=== PATIENT | female | born 1955 | race Caucasian/White ===

== ENCOUNTER → 2018-06-12 15:51 | Outpatient (CLI) | payer OTHER, SELFPAY ==
[2018-06-12 17:13] LABS: Absolute Lymphocyte Count 1.95 X10^3/ul (0.83-4.51); Absolute Neutrophil Count 5.5 X10^3/uL (2.0-7.7); Basophil# 0.03 X10^3/uL; Basophil% 0.4 % (0-1); Eosinophil# 0.17 X10^3/uL; Hematocrit 43.8 % (37-47); Hemoglobin 14.8 g/dl (12.0-15.0); Lymphocyte # 1.95 X10^3/ul (4.0); Lymphocyte % 22.9 % (19-41); Mean Corp Hgb Conc 33.8 g/gl (32-36); Mean Corpuscular Hgb 29.4 pg (27.0-32.0); Mean Corpuscular Volume 87.1 fL (81-99); Mean Platelet Vol. 9.2 fl (6.2-12.0); Monocyte# 0.86 X10^3/uL; Monocyte% 10.1 % (0-10); Neutrophil # 5.49 X10^3/uL (2.7-7.7); Neutrophil % 64.4 % (47-70); Platelet Count 275 K/mm3 (150-450); RBC Distribution Width CV 13.9 % (11.6-14.6); RBC Distribution Width SD 44.1 fl (35.1-43.9); Red Blood Count 5.03 M/mm3 (4.2-5.4); White Blood Count 8.5 K/mm3 (4.4-11.0)
[2018-06-12 17:18] LABS: POSITIVE COUNT NO; POSITIVE DIFFERENTIAL NO; POSITIVE MORPHOLOGY NO
[2018-06-12 18:01] LABS: AST(SGOT) 24 U/L (15-37); Alanine Aminotransfer ALT/SGPT 29 U/L (13-56); Albumin, Serum 3.6 g/dL (3.2-5.0); Alkaline Phosphatase 95 U/L (45-117); Anion Gap 11 (5-15); BUN 13 mg/dL (7-18); BUN/Creat Ratio 17.1 RATIO (10-20); Calcium,Total 8.7 mg/dL (8.5-10.1); Chloride 107 mmol/L (98-107); Creatinine, Serum 0.76 mg/dL (0.55-1.02); EST Glomerular Filtration Rate 82 mL/min (>60); Est Glom Filt Rate - Afr Amer 99 mL/min (>60); Globulin 3.5 g/dL (2.2-4.2); Glucose 101 mg/dL (74-106); Potassium 4.4 mmol/L (3.5-5.1); Protein, Total 7.1 g/dL (6.4-8.2); Sodium Level 145 mmol/L (136-145); Thyroid Stim Hormone (TSH) 3.49 uIU/mL (0.358-3.74)
[2018-06-13 09:03] LABS: Vitamin D,25 Hydroxy 31.5 ng/mL (29.95-100.01)
[2018-06-14 08:43] LABS: Hep C Antibodies <0.1 s/co ratio (0.0-0.9)
== END ==
PROVIDERS: Family Provider Family Medicine Geriatric Medicine; PCP Family Medicine Geriatric Medicine; Visit Provider Family Medicine Geriatric Medicine
DX: M25.512 Pain in left shoulder (principal); R53.83 Other fatigue; E55.9 Vitamin D deficiency, unspecified; Z13.89 Encounter for screening for other disorder
CPT/HCPCS: 36415; 73030; 80053; 82306; 84443; 85025; 86803

== ENCOUNTER → 2019-04-11 | Outpatient (CLI) | payer BC, SELFPAY ==
--- NOTE | 2019-04-12 10:57 | PFT ---
INTRODUCTION: The patient is a 64-year-old female that presents for pulmonary function studies secondary to a diagnosis of cough. Respiratory therapy reports good patient effort. Bronchodilators were used during testing. INTERPRETATION: Forced expiration spirometry demonstrates no evidence of a large airways obstructive ventilatory defect. There was a significant response to aerosolized bronchodilators noted, based upon changes in FEV1 and FVC. Spirograms are of good quality and plateau normally. Body plethysmography was performed and reveals lung volumes to be within normal limits. Diffusing capacity by single breath CO is within normal limits as well. IMPRESSION: Normal spirometry, lung volumes and diffusing capacity. The patient did have a significant bronchodilator response.
== END | disposition home or self-care (01) ==
LOC: PSN 07:30
PROVIDERS: Family Provider Family Medicine Geriatric Medicine; PCP Family Medicine Geriatric Medicine; Referring Provider Family Medicine Geriatric Medicine; Visit Provider Family Medicine Geriatric Medicine
DX: R06.02 Shortness of breath (principal)
CPT/HCPCS: 94060; 94726; 94729

== ENCOUNTER → 2019-07-03 | Outpatient (CLI) | payer BC, SELFPAY ==
[2019-07-03 15:42] LABS: Absolute Neutrophil Count 5.4 X10^3/uL (2.0-7.7); Basophil# 0.04 X10^3/uL; Basophil% 0.5 % (0-1); Eosinophil# 0.17 X10^3/uL; Eosinophils% 2.2 % (0-5); Hematocrit 44.2 % (37-47); Hemoglobin 14.5 g/dL (12.0-15.0); Mean Corp Hgb Conc 32.8 g/dL (32-36); Mean Corpuscular Hgb 28.9 pg (27.0-32.0); Mean Platelet Vol. 9.1 fl (6.2-12.0); Monocyte# 0.71 X10^3/uL; Monocyte% 9.1 % (0-10); NRBC Flagged by Analyzer 0 % (0-5); Neutrophil # 5.42 X10^3/uL (2.7-7.7); Neutrophil % 69.7 % (47-70); Platelet Count 254 K/mm3 (150-450); RBC Distribution Width CV 13.2 % (11.6-14.6); Red Blood Count 5.02 M/mm3 (4.2-5.4); White Blood Count 7.8 K/mm3 (4.4-11.0)
[2019-07-03 16:21] LABS: ALB/GLOB Ratio 1.1 RATIO (0.9-2.4); AST(SGOT) 19 U/L (15-37); Alanine Aminotransfer ALT/SGPT 22 U/L (13-56); Albumin, Serum 3.5 g/dL (3.2-5.0); Alkaline Phosphatase 101 U/L (45-117); Anion Gap 8 (5-15); BUN 14 mg/dL (7-18); BUN/Creat Ratio 20.3 RATIO (10-20); Calcium,Total 8.5 mg/dL (8.5-10.1); Chloride 111 mmol/L (98-107); Creatinine, Serum 0.69 mg/dL (0.55-1.02); EST Glomerular Filtration Rate 91 mL/min (>60); Est Glom Filt Rate - Afr Amer 110 mL/min (>60); Globulin 3.3 g/dL (2.2-4.2); Glucose 112 mg/dL (74-106); Potassium 3.7 mmol/L (3.5-5.1); Protein, Total 6.8 g/dL (6.4-8.2); Sodium Level 143 mmol/L (136-145); Thyroid Stim Hormone (TSH) 5.82 uIU/mL (0.358-3.74)
== END | disposition home or self-care (01) ==
LOC: POLAB3 11:18
PROVIDERS: Family Provider Family Medicine Geriatric Medicine; PCP Family Medicine Geriatric Medicine; Visit Provider Family Medicine Geriatric Medicine
DX: E55.9 Vitamin D deficiency, unspecified (principal); R53.83 Other fatigue
CPT/HCPCS: 36415; 80053; 82306; 84443; 85025

== ENCOUNTER → 2019-08-01 | Outpatient (CLI) | payer BC, SELFPAY | END | disposition home or self-care (01) | LOC: PSN 12:32 | PROVIDERS: Family Provider Family Medicine Geriatric Medicine; PCP Family Medicine Geriatric Medicine; Referring Provider Family Medicine Geriatric Medicine; Visit Provider Family Medicine Geriatric Medicine | DX: R68.83 Chills (without fever) (principal) | CPT/HCPCS: 87633 ==

== ENCOUNTER → 2019-08-19 | Outpatient (CLI) | payer BC, SELFPAY | END | disposition home or self-care (01) | LOC: POLAB3 11:54 | PROVIDERS: Family Provider Family Medicine Geriatric Medicine; PCP Family Medicine Geriatric Medicine; Visit Provider Family Medicine Geriatric Medicine | DX: E03.9 Hypothyroidism, unspecified (principal) | CPT/HCPCS: 36415; 84443 ==

== ENCOUNTER → 2019-08-22 | Outpatient (CLI) | payer BC, SELFPAY ==
--- NOTE | 2019-08-22 15:17 | RAD_ITS ---
STUDY: X-RAY CHEST REASON FOR EXAM: Female, 64 years old. Bronchitis. TECHNIQUE: PA and lateral views of the chest. COMPARISON: Comparison is made with prior examination dated November 26, 2015. FINDINGS: Hyperinflation. Stable increased lingula markings suggestive of scarring. There is no demonstrated pleural abnormality. Normal size heart. Normal mediastinum and sandy. Normal visualized pulmonary arteries. There is atherosclerotic tortuosity of the aortic arch and descending thoracic aorta. There is demineralization of the osseous structures. Normal visualized ribs, clavicles, and shoulders. There is no demonstrated abnormality of the visualized soft tissue structures of the upper abdomen. RAD/Chest PA and Lateral IMPRESSION: Hyperinflation. Stable increased markings at the left lung base suggesting scarring. Electronically Signed: Justin Leon, at 13:17 EDT , Service support ,
== END | disposition home or self-care (01) ==
PROVIDERS: Family Provider Family Medicine Geriatric Medicine; PCP Family Medicine Geriatric Medicine; Referring Provider Family Medicine Geriatric Medicine; Visit Provider Family Medicine Geriatric Medicine
DX: J40 Bronchitis, not specified as acute or chronic (principal)
CPT/HCPCS: 71046; 87070; 87205

== ENCOUNTER → 2020-08-04 | Outpatient (CLI) | payer BC, SELFPAY ==
[2020-08-04 16:34] LABS: Absolute Lymphocyte Count 1.73 X10^3/uL (0.83-4.51); Absolute Neutrophil Count 5.6 X10^3/uL (2.0-7.7); Basophil# 0.03 X10^3/uL; Basophil% 0.4 % (0-1); Eosinophil# 0.19 X10^3/uL; Eosinophils% 2.3 % (0-5); Hematocrit 42.8 % (37-47); Hemoglobin 13.8 g/dL (12.0-15.0); Lymphocyte # 1.73 X10^3/ul (4.0); Lymphocyte % 20.8 % (19-41); Mean Corp Hgb Conc 32.2 g/dL (32-36); Mean Corpuscular Hgb 28.2 pg (27.0-32.0); Mean Corpuscular Volume 87.5 fL (81-99); Mean Platelet Vol. 8.8 fl (6.2-12.0); Monocyte# 0.78 X10^3/uL; Monocyte% 9.4 % (0-10); NRBC Flagged by Analyzer 0 % (0-5); Neutrophil # 5.55 X10^3/uL (2.7-7.7); Neutrophil % 66.7 % (47-70); Platelet Count 258 K/mm3 (150-450); RBC Distribution Width CV 13.2 % (11.6-14.6); RBC Distribution Width SD 42.8 fl (35.1-43.9); Red Blood Count 4.89 M/mm3 (4.2-5.4); White Blood Count 8.3 K/mm3 (4.4-11.0)
[2020-08-04 17:29] LABS: Vitamin D,25 Hydroxy 32.9 ng/mL
[2020-08-04 17:55] LABS: ALB/GLOB Ratio 1.1 RATIO (0.9-2.4); AST(SGOT) 23 U/L (15-37); Alanine Aminotransfer ALT/SGPT 24 U/L (13-56); Albumin, Serum 3.5 g/dL (3.2-5.0); Alkaline Phosphatase 96 U/L (45-117); Anion Gap 7 (5-15); BUN 12 mg/dL (7-18); BUN/Creat Ratio 18.5 RATIO (10-20); Calcium,Total 8.4 mg/dL (8.5-10.1); Chloride 106 mmol/L (98-107); Creatinine, Serum 0.65 mg/dL (0.55-1.02); EST Glomerular Filtration Rate 98 mL/min (>60); Est Glom Filt Rate - Afr Amer 118 mL/min (>60); Globulin 3.3 g/dL (2.2-4.2); Glucose 84 mg/dL (74-106); Potassium 3.9 mmol/L (3.5-5.1); Protein, Total 6.8 g/dL (6.4-8.2); Sodium Level 140 mmol/L (136-145); Thyroid Stim Hormone (TSH) 2.95 uIU/mL (0.358-3.74)
== END | disposition home or self-care (01) ==
LOC: POLAB3 15:33
PROVIDERS: PCP Family Medicine Geriatric Medicine; Visit Provider Family Medicine Geriatric Medicine
DX: E55.9 Vitamin D deficiency, unspecified (principal); R53.83 Other fatigue
CPT/HCPCS: 36415; 80053; 82306; 84443; 85025

== ENCOUNTER → 2020-08-21 | Outpatient (CLI) | payer BC, SELFPAY | END | disposition home or self-care (01) | LOC: LABSPEC 10:50 | PROVIDERS: PCP Family Medicine Geriatric Medicine; Referring Provider Family Medicine Geriatric Medicine; Visit Provider Family Medicine Geriatric Medicine | DX: R06.89 Other abnormalities of breathing (principal) | CPT/HCPCS: 87633; 87635; C9803; U0003 ==

== ENCOUNTER → 2020-09-09 17:37 | Outpatient (CLI) | payer BC, SELFPAY | PROVIDERS: PCP Family Medicine Geriatric Medicine; Referring Provider Family Medicine Geriatric Medicine; Visit Provider Family Medicine Geriatric Medicine | DX: R06.89 Other abnormalities of breathing (principal) | CPT/HCPCS: 87633; 87635; C9803; U0003 ==

== ENCOUNTER → 2020-10-05 15:51 | Outpatient (CLI) | payer BC, SELFPAY ==
[2020-10-09 03:06] LABS: Immunoglobulin A 225 mg/dL (87-352); Immunoglobulin G 659 mg/dL (586-1602); Immunoglobulin M 82 mg/dL (26-217)
[2020-10-09 08:54] LABS: Immunoglobulin E 44 IU/mL (6-495)
== END ==
PROVIDERS: PCP Family Medicine Geriatric Medicine; Visit Provider Family Medicine Geriatric Medicine
DX: M79.10 Myalgia, unspecified site (principal); R06.89 Other abnormalities of breathing
CPT/HCPCS: 36415; 82784; 82785

== ENCOUNTER → 2020-10-27 08:28 | Outpatient (CLI) | payer BC, SELFPAY ==
--- NOTE | 2020-10-27 16:10 | PFTCOMP_ITS ---
COMPLETE PULMONARY FUNCTION TEST INTERPRETATION Brief HPI: Patient is a 65 year old female, currently under the care of Dr. Perez, who presents to [facility] for complete pulmonary function tests secondary to diagnosis of dyspnea. Respiratory therapist reports good effort and reproducible results. Interpretation: Forced expiration spirometry shows no large airways obstructive ventilatory defect with an FEV1 of 100% predicted. There is no significant bronchodilator response by strict ATS criteria. Spirograms are of good quality and plateau normally. The respiratory flow volume loop shows a normal pattern. Lung volumes by body plethysmography show a slightly elevated total lung capacity at 6.52 L, 115% predicted. All other lung volumes are increased symmetrically. Diffusion capacity by carbon monoxide is at the lower limit of normal at 69% predicted. The airway resistance is elevated. Compared to previous pulmonary function tests from 04/11/2019, been a significant improvement in total lung capacity by 23%, but DLCO was decreased by 32%. Impression: Isolated reduction in diffusion capacity consistent with a possible pulmonary vascular disorder.
== END ==
PROVIDERS: PCP Family Medicine Geriatric Medicine; Referring Provider Family Medicine Geriatric Medicine; Visit Provider Family Medicine Geriatric Medicine
DX: R06.89 Other abnormalities of breathing (principal)
CPT/HCPCS: 94060; 94726; 94729

== ENCOUNTER → 2021-02-01 12:49 | Outpatient (CLI) | payer BC, SELFPAY ==
[2021-02-01 15:18] LABS: Absolute Lymphocyte Count 1.39 X10^3/uL (0.83-4.51); Absolute Neutrophil Count 4.6 X10^3/uL (2.0-7.7); Basophil# 0.05 X10^3/uL; Basophil% 0.7 % (0-1); Eosinophils% 2.9 % (0-5); Hematocrit 45.3 % (37-47); Hemoglobin 14.6 g/dL (12.0-15.0); Lymphocyte # 1.39 X10^3/ul (4.0); Lymphocyte % 20.4 % (19-41); Mean Corp Hgb Conc 32.2 g/dL (32-36); Mean Corpuscular Hgb 28.4 pg (27.0-32.0); Mean Corpuscular Volume 88.1 fL (81-99); Mean Platelet Vol. 9.1 fl (6.2-12.0); Monocyte% 8.8 % (0-10); NRBC Flagged by Analyzer 0 % (0-5); Neutrophil # 4.56 X10^3/uL (2.7-7.7); Neutrophil % 66.9 % (47-70); Platelet Count 266 K/mm3 (150-450); RBC Distribution Width CV 13.5 % (11.6-14.6); RBC Distribution Width SD 44.1 fl (35.1-43.9); Red Blood Count 5.14 M/mm3 (4.2-5.4); White Blood Count 6.8 K/mm3 (4.4-11.0)
[2021-02-01 15:34] LABS: ALB/GLOB Ratio 1.1 RATIO (0.9-2.4); AST(SGOT) 21 U/L (15-37); Alanine Aminotransfer ALT/SGPT 27 U/L (13-56); Albumin, Serum 3.7 g/dL (3.2-5.0); Alkaline Phosphatase 92 U/L (45-117); Anion Gap 4 (5-15); BUN 11 mg/dL (7-18); BUN/Creat Ratio 15.9 RATIO (10-20); Calcium,Total 8.9 mg/dL (8.5-10.1); Chloride 106 mmol/L (98-107); Creatinine, Serum 0.69 mg/dL (0.55-1.02); EST Glomerular Filtration Rate 90 mL/min (>60); Est Glom Filt Rate - Afr Amer 109 mL/min (>60); Globulin 3.3 g/dL (2.2-4.2); Glucose 89 mg/dL (74-106); Potassium 3.9 mmol/L (3.5-5.1); Sodium Level 140 mmol/L (136-145)
== END ==
PROVIDERS: PCP Family Medicine Geriatric Medicine; Referring Provider Dermatology Pediatric Dermatology; Visit Provider Dermatology Pediatric Dermatology
DX: D69.2 Other nonthrombocytopenic purpura (principal); L90.8 Other atrophic disorders of skin; L30.9 Dermatitis, unspecified
CPT/HCPCS: 36415; 80053; 85025

== ENCOUNTER → 2021-02-05 | Outpatient (CLI) | payer BC, SELFPAY | END | disposition home or self-care (01) | LOC: LABSPEC 14:06 | PROVIDERS: PCP Family Medicine Geriatric Medicine; Referring Provider Family Medicine Geriatric Medicine; Visit Provider Family Medicine Geriatric Medicine | DX: R68.83 Chills (without fever) (principal) | CPT/HCPCS: 87635; C9803; U0002 ==

== ENCOUNTER → 2021-08-17 10:42 | Outpatient (CLI) | payer BC, SELFPAY ==
[2021-08-17 12:40] LABS: Absolute Lymphocyte Count 1.29 X10^3/uL (0.83-4.51); Absolute Neutrophil Count 3.7 X10^3/uL (2.0-7.7); Basophil# 0.03 X10^3/uL; Basophil% 0.5 % (0-1); Eosinophil# 0.29 X10^3/uL; Eosinophils% 4.8 % (0-5); Hematocrit 45.8 % (37-47); Hemoglobin 14.9 g/dL (12.0-15.0); Lymphocyte # 1.29 X10^3/ul (0.83-4.51); Lymphocyte % 21.5 % (19-41); Mean Corp Hgb Conc 32.5 g/dL (32-36); Mean Corpuscular Hgb 28.4 pg (27.0-32.0); Mean Corpuscular Volume 87.4 fL (81-99); Mean Platelet Vol. 8.8 fl (6.2-12.0); Monocyte# 0.63 X10^3/uL; Monocyte% 10.5 % (0-10); NRBC Flagged by Analyzer 0 % (0-5); Neutrophil # 3.74 X10^3/uL (2.7-7.7); Neutrophil % 62.4 % (47-70); Platelet Count 255 K/mm3 (150-450); RBC Distribution Width CV 13.5 % (11.6-14.6); RBC Distribution Width SD 43.5 fl (35.1-43.9); Red Blood Count 5.24 M/mm3 (4.2-5.4)
[2021-08-17 12:51] LABS: Vitamin D,25 Hydroxy 30.9 ng/mL
[2021-08-17 12:59] LABS: ALB/GLOB Ratio 1.1 RATIO (0.9-2.4); AST(SGOT) 26 U/L (15-37); Alanine Aminotransfer ALT/SGPT 27 U/L (13-56); Albumin, Serum 3.7 g/dL (3.2-5.0); Alkaline Phosphatase 87 U/L (45-117); Anion Gap 8 (5-15); BUN 9 mg/dL (7-18); BUN/Creat Ratio 12.4 RATIO (10-20); Calcium,Total 8.8 mg/dL (8.5-10.1); Chloride 106 mmol/L (98-107); Creatinine, Serum 0.73 mg/dL (0.55-1.02); EST Glomerular Filtration Rate 85 mL/min (>60); Est Glom Filt Rate - Afr Amer 103 mL/min (>60); Globulin 3.5 g/dL (2.2-4.2); Glucose 106 mg/dL (74-106); Protein, Total 7.2 g/dL (6.4-8.2); Sodium Level 143 mmol/L (136-145); Thyroid Stim Hormone (TSH) 6.29 uIU/mL (0.358-3.74)
== END ==
PROVIDERS: PCP Family Medicine Geriatric Medicine; Visit Provider Family Medicine Geriatric Medicine
DX: E55.9 Vitamin D deficiency, unspecified (principal); R53.83 Other fatigue
CPT/HCPCS: 36415; 80053; 82306; 84443; 85025

== ENCOUNTER 2021-10-29 14:52 | Outpatient (CLI) | payer BC, SELFPAY ==
[2021-10-29 16:21] LABS: EXAGEN MAILED SPECIMEN
[2021-10-29 16:51] LABS: Color, Urine Yellow (Yellow); Glucose, Dipstick Normal (Normal); Ketone-Dipstick Negative (Negative); Leukocyte Esterase-Dipstick 100 /ul (Negative); Nitrite-Dipstick Negative (Negative); Occult Blood-Urine Negative /ul (Negative); Protein-Dipstick Negative (Negative); Urine Bilirubin Dipstick Negative (Negative); Urine Clarity Sl. Cloudy (Clear); Urine Urobilinogen Normal (Normal)
[2021-10-29 16:57] LABS: Absolute Neutrophil Count 3.2 X10^3/uL (2.0-7.7); Basophil# 0.03 X10^3/uL; Basophil% 0.6 % (0-1); Eosinophil# 0.12 X10^3/uL; Eosinophils% 2.5 % (0-5); Hematocrit 43.5 % (37-47); Hemoglobin 14.3 g/dL (12.0-15.0); Lymphocyte % 18.5 % (19-41); Mean Corp Hgb Conc 32.9 g/dL (32-36); Mean Corpuscular Volume 88.2 fL (81-99); Monocyte% 12.3 % (0-10); NRBC Flagged by Analyzer 0 % (0-5); Neutrophil % 65.7 % (47-70); Platelet Count 250 K/mm3 (150-450); RBC Distribution Width CV 14.1 % (11.6-14.6); RBC Distribution Width SD 45.5 fl (35.1-43.9); Red Blood Count 4.93 M/mm3 (4.2-5.4); White Blood Count 4.9 K/mm3 (4.4-11.0)
[2021-10-29 17:01] LABS: Protein, Urine (Random) 7.6 mg/dL (<11.9); Protein:Creat Ratio 70 mg/g CRE (0-200)
[2021-10-29 17:04] LABS: International Normalized Ratio 1.1; Prothrombin Time (Protime)PT. 13.4 SECONDS (11.7-14.9)
[2021-10-29 17:21] LABS: AST(SGOT) 38 U/L (15-37); Alanine Aminotransfer ALT/SGPT 32 U/L (13-56); Albumin, Serum 3.4 g/dL (3.2-5.0); Alkaline Phosphatase 65 U/L (45-117); Anion Gap 6 (5-15); BUN 10 mg/dL (7-18); BUN/Creat Ratio 18.3 RATIO (10-20); CRP 3.52 mg/L (0.0-3.0); Chloride 107 mmol/L (98-107); Creatinine, Serum 0.54 mg/dL (0.55-1.02); EST Glomerular Filtration Rate 119 mL/min (>60); Est Glom Filt Rate - Afr Amer 144 mL/min (>60); Globulin 3.4 g/dL (2.2-4.2); Glucose 93 mg/dL (74-106); Protein, Total 6.8 g/dL (6.4-8.2); Sodium Level 141 mmol/L (136-145)
[2021-10-29 17:30] LABS: Erythrocyte Sedimentation Rate 10 mm/hr (0-30)
[2021-11-01 09:23] LABS: Hepatitis B Surface Antibody Non-Reactive; Hepatitis B Surface Antigen Non-Reactive (Nonreactive); Hepatitis C Antibody Non-Reactive (Nonreactive)
[2021-11-01 13:28] LABS: Thrombin Time 16.5 sec (0.0-23.0)
[2021-11-01 14:08] LABS: Dilute Prothrombin Time (dPT) 34.6 sec (0.0-47.6); Dilute Russell Viper Venom 32.6 sec (0.0-47.0); Hexagonal Phase Phospholipid 2 sec (0-11); PTT-LA 36.6 sec (0.0-51.9); Thrombin Time 15.2 sec (0.0-23.0)
[2021-11-01 16:08] LABS: Interpretation Comment: (.)
== END 2021-10-29 23:59 | disposition short-term general hospital (02) ==
LOC: LAB 14:53
PROVIDERS: PCP Family Medicine Geriatric Medicine; Visit Provider Internal Medicine Rheumatology
DX: M33.90 Dermatopolymyositis, unspecified, organ involvement unspecified (principal)
CPT/HCPCS: 36415; 80053; 81002; 82570; 84156; 85025; 85598; 85610; 85652; 85670; 85730; 86140; 86706; 86803; 87340

== ENCOUNTER 2021-11-17 12:36 | Outpatient (CLI) | payer BC, SELFPAY ==
[2021-11-17 13:48] LABS: EXAGEN MAILED SPECIMEN
== END 2021-11-17 23:59 | disposition short-term general hospital (02) ==
PROVIDERS: PCP Family Medicine Geriatric Medicine; Referring Provider Internal Medicine Rheumatology; Visit Provider Internal Medicine Rheumatology
DX: M33.90 Dermatopolymyositis, unspecified, organ involvement unspecified (principal); M06.4 Inflammatory polyarthropathy; R76.8 Other specified abnormal immunological findings in serum; F32.A Depression, unspecified; J45.909 Unspecified asthma, uncomplicated

== ENCOUNTER 2021-11-29 14:02 | Outpatient (CLI) | payer BC, SELFPAY ==
[2021-11-29 18:46] LABS: CPK Total, Creatine Kinase 67 U/L (26-192)
[2021-12-01 18:17] LABS: Aldolase 8.6 U/L (3.3-10.3)
== END 2021-11-29 23:59 | disposition home or self-care (01) ==
LOC: MTLAB 14:05
PROVIDERS: PCP Family Medicine Geriatric Medicine; Referring Provider Internal Medicine Rheumatology; Visit Provider Internal Medicine Rheumatology
DX: M33.90 Dermatopolymyositis, unspecified, organ involvement unspecified (principal); M06.4 Inflammatory polyarthropathy; R76.8 Other specified abnormal immunological findings in serum; F32.A Depression, unspecified; J45.909 Unspecified asthma, uncomplicated; Z79.899 Other long term (current) drug therapy
CPT/HCPCS: 36415; 82085; 82550

== ENCOUNTER → 2022-02-16 | Outpatient (CLI) | payer BC, SELFPAY ==
--- NOTE | 2022-02-16 10:39 | RAD_ITS ---
STUDY: X-RAY - LUMBAR SPINE REASON FOR EXAM: Female, 67 years old. LUMBAR RADICULOPATHY TECHNIQUE: 4 view(s) of the lumbar spine were obtained. COMPARISON: 10/02/2017 FINDINGS: Normal lumbar lordosis. There is no substantial scoliosis. There is a normal alignment of the vertebrae. There is diffuse demineralization with multi-level endplate spondylosis. There is multi-level degenerative disc disease with multi-level disc space narrowing. There is no demonstrated acute fracture. There is a chronic compression fracture affecting the superior endplate of L2 The soft tissue structures are unremarkable. RAD/L/S Spine Min 4 Views IMPRESSION: Degenerative changes of the spine, as detailed above. No acute findings Stable chronic compression fracture at L2 Electronically Signed: Andres Bruno MD at 13:45 EDT ,
[2022-02-16 12:34] LABS: Erythrocyte Sedimentation Rate 11 mm/hr (0-30)
[2022-02-16 12:37] LABS: Absolute Lymphocyte Count 1.05 X10^3/uL (0.83-4.51); Absolute Neutrophil Count 3.9 X10^3/uL (2.0-7.7); Basophil# 0.02 X10^3/uL; Basophil% 0.3 % (0-1); Eosinophil# 0.28 X10^3/uL; Eosinophils% 4.7 % (0-5); Hematocrit 41.4 % (37-47); Hemoglobin 13.4 g/dL (12.0-15.0); Lymphocyte # 1.05 X10^3/ul (0.83-4.51); Lymphocyte % 17.5 % (19-41); Mean Corp Hgb Conc 32.4 g/dL (32-36); Mean Corpuscular Hgb 28.4 pg (27.0-32.0); Mean Corpuscular Volume 87.7 fL (81-99); Mean Platelet Vol. 8.9 fl (6.2-12.0); Monocyte# 0.73 X10^3/uL; Monocyte% 12.1 % (0-10); NRBC Flagged by Analyzer 0 % (0-5); Neutrophil # 3.91 X10^3/uL (2.7-7.7); Neutrophil % 65.1 % (47-70); Platelet Count 257 K/mm3 (150-450); RBC Distribution Width CV 13.8 % (11.6-14.6); RBC Distribution Width SD 44.8 fl (35.1-43.9); Red Blood Count 4.72 M/mm3 (4.2-5.4)
[2022-02-16 12:57] LABS: Vitamin B12 346 pg/mL (211-911); Vitamin D,25 Hydroxy 34.6 ng/mL
[2022-02-16 13:39] LABS: AST(SGOT) 23 U/L (15-37); Alanine Aminotransfer ALT/SGPT 21 U/L (13-56); Albumin, Serum 3.3 g/dL (3.2-5.0); Alkaline Phosphatase 64 U/L (45-117); Anion Gap 6 (5-15); BUN 9 mg/dL (7-18); CRP 6.72 mg/L (0.0-3.0); Calcium,Total 8.2 mg/dL (8.5-10.1); Chloride 106 mmol/L (98-107); Creatinine, Serum 0.64 mg/dL (0.55-1.02); EST Glomerular Filtration Rate 98 mL/min (>60); Est Glom Filt Rate - Afr Amer 118 mL/min (>60); Globulin 3.2 g/dL (2.2-4.2); Glucose 81 mg/dL (74-106); Potassium 3.9 mmol/L (3.5-5.1); Protein, Total 6.5 g/dL (6.4-8.2); Rheumatoid Factor < 10.0 IU/mL (<15); Sodium Level 140 mmol/L (136-145)
[2022-02-17 17:28] LABS: ANTINUCLEAR ANTIBODIES DIRECT Negative (Negative)
== END | disposition home or self-care (01) ==
PROVIDERS: PCP Family Medicine Geriatric Medicine; Referring Provider Podiatrist; Visit Provider Podiatrist
DX: M54.16 Radiculopathy, lumbar region (principal)
CPT/HCPCS: 36415; 72110; 80053; 82306; 82607; 82746; 85025; 85652; 86038; 86140; 86225; 86235; 86431

== ENCOUNTER → 2022-02-23 | Outpatient (CLI) | payer BC, SELFPAY ==
[2022-02-23 15:45] LABS: Absolute Lymphocyte Count 1.24 X10^3/uL (0.83-4.51); Absolute Neutrophil Count 5.3 X10^3/uL (2.0-7.7); Basophil# 0.03 X10^3/uL; Basophil% 0.4 % (0-1); Eosinophil# 0.26 X10^3/uL; Eosinophils% 3.4 % (0-5); Hematocrit 41.4 % (37-47); Hemoglobin 13.7 g/dL (12.0-15.0); Lymphocyte # 1.24 X10^3/ul (0.83-4.51); Lymphocyte % 16.3 % (19-41); Mean Corp Hgb Conc 33.1 g/dL (32-36); Mean Corpuscular Hgb 28.3 pg (27.0-32.0); Mean Corpuscular Volume 85.5 fL (81-99); Mean Platelet Vol. 8.9 fl (6.2-12.0); Monocyte# 0.79 X10^3/uL; Monocyte% 10.4 % (0-10); NRBC Flagged by Analyzer 0 % (0-5); Neutrophil # 5.26 X10^3/uL (2.7-7.7); Neutrophil % 69.2 % (47-70); Platelet Count 272 K/mm3 (150-450); RBC Distribution Width CV 13.9 % (11.6-14.6); RBC Distribution Width SD 43.7 fl (35.1-43.9); Red Blood Count 4.84 M/mm3 (4.2-5.4); White Blood Count 7.6 K/mm3 (4.4-11.0)
[2022-02-23 16:08] LABS: AST(SGOT) 28 U/L (15-37); Alanine Aminotransfer ALT/SGPT 26 U/L (13-56); Albumin, Serum 3.4 g/dL (3.2-5.0); Alkaline Phosphatase 69 U/L (45-117); Anion Gap 5 (5-15); BUN 12 mg/dL (7-18); BUN/Creat Ratio 17.6 RATIO (10-20); Calcium,Total 8.8 mg/dL (8.5-10.1); Chloride 105 mmol/L (98-107); Creatinine, Serum 0.68 mg/dL (0.55-1.02); EST Glomerular Filtration Rate 92 mL/min (>60); Est Glom Filt Rate - Afr Amer 111 mL/min (>60); Globulin 3.5 g/dL (2.2-4.2); Glucose 94 mg/dL (74-106); Potassium 4.1 mmol/L (3.5-5.1); Protein, Total 6.9 g/dL (6.4-8.2); Sodium Level 139 mmol/L (136-145); Thyroid Stim Hormone (TSH) 5.18 uIU/mL (0.358-3.74)
[2022-02-23 16:10] LABS: Vitamin D,25 Hydroxy 32.8 ng/mL
== END | disposition home or self-care (01) ==
LOC: POLAB3 15:12
PROVIDERS: PCP Family Medicine Geriatric Medicine; Visit Provider Family Medicine Geriatric Medicine
DX: E55.9 Vitamin D deficiency, unspecified (principal); R53.83 Other fatigue
CPT/HCPCS: 36415; 80053; 82306; 84443; 85025

== ENCOUNTER → 2022-06-30 | Outpatient (CLI) | payer BC, SELFPAY ==
[2022-06-30 17:21] LABS: Thyroid Stim Hormone (TSH) 2.83 uIU/mL (0.358-3.74)
== END | disposition home or self-care (01) ==
LOC: POLAB3 15:16
PROVIDERS: PCP Family Medicine Geriatric Medicine; Visit Provider Family Medicine Geriatric Medicine
DX: E03.9 Hypothyroidism, unspecified (principal)
CPT/HCPCS: 36415; 84443

== ENCOUNTER → 2022-07-13 | Outpatient (CLI) | payer BC, SELFPAY ==
--- NOTE | 2022-07-13 09:41 | VDLE_ITS ---
Reason For Study: Swelling RIGHT LEFT GSV is normal. GSV is normal. CFV is compressible, spontaneous, phasic, CFV is compressible, spontaneous, phasic, competent and demonstrates normal competent, and demonstrates normal augmentation. augmentation. FV is compressible, spontaneous, phasic, FV is compressible, spontaneous, phasic, competent and demonstrates normal competent and demonstrates normal augmentation. augmentation. POP V is compressible, spontaneous, phasic, POP V is compressible, spontaneous, phasic, competent and demonstrates normal competent and demonstrates normal augmentation. augmentation. T/P Trunk is compressible. T/P Trunk is compressible. PTV is compressible. PTV is compressible. RT PerV is compressible. LT PerV is compressible. Procedure This is a venous duplex using B-mode, color flow and spectral Doppler. Exam performed in department. A preliminary report was called and/or faxed to Dr. Roland. VL/Venous Duplex US - Deacon Extrem Interpretation Summary No evidence for acute deep venous thrombosis bilateral lower extremities with p atent and compressible bilateral great saphenous veins. Ordering Physician: Shay Roland Referring Physician: Geoff Perez Chi Performed By: Saba Bourgeois, SELENA, RVT
== END | disposition home or self-care (01) ==
LOC: CVS 09:40
PROVIDERS: PCP Family Medicine Geriatric Medicine; Referring Provider Podiatrist; Visit Provider Podiatrist
DX: M79.606 Pain in leg, unspecified (principal); R22.43 Localized swelling, mass and lump, lower limb, bilateral
CPT/HCPCS: 93970

== ENCOUNTER → 2022-08-18 | Outpatient (CLI) | payer BC, SELFPAY ==
[2022-08-18 13:41] LABS: Absolute Lymphocyte Count 0.96 X10^3/uL (0.83-4.51); Absolute Neutrophil Count 4.2 X10^3/uL (2.0-7.7); Basophil# 0.03 X10^3/uL; Basophil% 0.5 % (0-1); Eosinophil# 0.13 X10^3/uL; Eosinophils% 2.3 % (0-5); Hematocrit 39.8 % (37-47); Hemoglobin 13.5 g/dL (12.0-15.0); Lymphocyte # 0.96 X10^3/ul (0.83-4.51); Lymphocyte % 16.7 % (19-41); Mean Corp Hgb Conc 33.9 g/dL (32-36); Mean Corpuscular Hgb 29.1 pg (27.0-32.0); Mean Corpuscular Volume 85.8 fL (81-99); Mean Platelet Vol. 8.6 fl (6.2-12.0); Monocyte# 0.45 X10^3/uL; Monocyte% 7.8 % (0-10); NRBC Flagged by Analyzer 0 % (0-5); Neutrophil # 4.16 X10^3/uL (2.7-7.7); Neutrophil % 72.5 % (47-70); Platelet Count 238 K/mm3 (150-450); RBC Distribution Width CV 13.2 % (11.6-14.6); RBC Distribution Width SD 41.6 fl (35.1-43.9); Red Blood Count 4.64 M/mm3 (4.2-5.4); White Blood Count 5.7 K/mm3 (4.4-11.0)
[2022-08-18 13:55] LABS: Vitamin D,25 Hydroxy 34.5 ng/mL
[2022-08-18 14:15] LABS: ALB/GLOB Ratio 1.1 RATIO (0.9-2.4); AST(SGOT) 19 U/L (15-37); Alanine Aminotransfer ALT/SGPT 19 U/L (13-56); Albumin, Serum 3.4 g/dL (3.2-5.0); Alkaline Phosphatase 87 U/L (45-117); Anion Gap 4 (5-15); BUN 18 mg/dL (7-18); BUN/Creat Ratio 24.2 RATIO (10-20); Calcium,Total 8.9 mg/dL (8.5-10.1); Chloride 110 mmol/L (98-107); Creatinine, Serum 0.74 mg/dL (0.55-1.02); EST Glomerular Filtration Rate 83 mL/min (>60); Est Glom Filt Rate - Afr Amer 100 mL/min (>60); Globulin 3.1 g/dL (2.2-4.2); Glucose 92 mg/dL (74-106); Protein, Total 6.5 g/dL (6.4-8.2); Sodium Level 141 mmol/L (136-145)
== END | disposition home or self-care (01) ==
LOC: POLAB3 09:19
PROVIDERS: PCP Family Medicine Geriatric Medicine; Visit Provider Family Medicine Geriatric Medicine
DX: E55.9 Vitamin D deficiency, unspecified (principal); R53.83 Other fatigue
CPT/HCPCS: 36415; 80053; 82306; 84443; 85025

== ENCOUNTER → 2023-02-15 | Outpatient (CLI) | payer BC, SELFPAY | END | disposition home or self-care (01) | LOC: PSN 12:15 | PROVIDERS: PCP Family Medicine Geriatric Medicine; Referring Provider Family Medicine Geriatric Medicine; Visit Provider Family Medicine Geriatric Medicine | DX: R68.83 Chills (without fever) (principal) | CPT/HCPCS: 87635; 87804; 87807; C9803; U0003; U0005 ==

== ENCOUNTER → 2023-02-16 | Outpatient (CLI) | payer BC, SELFPAY ==
[2023-02-16 15:32] LABS: Absolute Lymphocyte Count 1.97 X10^3/uL (0.83-4.51); Absolute Neutrophil Count 4.6 X10^3/uL (2.0-7.7); Basophil# 0.05 X10^3/uL; Basophil% 0.7 % (0-1); Eosinophil# 0.09 X10^3/uL; Eosinophils% 1.2 % (0-5); Hematocrit 43.9 % (37-47); Hemoglobin 14.5 g/dL (12.0-15.0); Lymphocyte # 1.97 X10^3/ul (0.83-4.51); Lymphocyte % 26.8 % (19-41); Mean Corpuscular Hgb 29.1 pg (27.0-32.0); Mean Platelet Vol. 8.7 fl (6.2-12.0); Monocyte# 0.59 X10^3/uL; NRBC Flagged by Analyzer 0 % (0-5); Neutrophil # 4.62 X10^3/uL (2.7-7.7); Neutrophil % 62.8 % (47-70); Platelet Count 278 K/mm3 (150-450); RBC Distribution Width CV 13.2 % (11.6-14.6); RBC Distribution Width SD 42.6 fl (35.1-43.9); Red Blood Count 4.99 M/mm3 (4.2-5.4); White Blood Count 7.4 K/mm3 (4.4-11.0)
[2023-02-16 16:06] LABS: ALB/GLOB Ratio 1.1 RATIO (0.9-2.4); AST(SGOT) 16 U/L (15-37); Alanine Aminotransfer ALT/SGPT 19 U/L (13-56); Albumin, Serum 3.4 g/dL (3.2-5.0); Alkaline Phosphatase 88 U/L (45-117); Anion Gap 5 (5-15); BUN 13 mg/dL (7-18); BUN/Creat Ratio 14.6 RATIO (10-20); Calcium,Total 8.7 mg/dL (8.5-10.1); Chloride 109 mmol/L (98-107); Creatinine, Serum 0.89 mg/dL (0.55-1.02); EST Glomerular Filtration Rate 67 mL/min (>60); Est Glom Filt Rate - Afr Amer 81 mL/min (>60); Globulin 3.1 g/dL (2.2-4.2); Glucose 112 mg/dL (74-106); Potassium 3.4 mmol/L (3.5-5.1); Protein, Total 6.5 g/dL (6.4-8.2); Sodium Level 138 mmol/L (136-145); Thyroid Stim Hormone (TSH) 3.59 uIU/mL (0.358-3.74); Vitamin D,25 Hydroxy 33.2 ng/mL
== END | disposition home or self-care (01) ==
LOC: POLAB3 09:39
PROVIDERS: PCP Family Medicine Geriatric Medicine; Visit Provider Family Medicine Geriatric Medicine
DX: R53.83 Other fatigue (principal); E55.9 Vitamin D deficiency, unspecified
CPT/HCPCS: 36415; 80053; 82306; 84443; 85025

== ENCOUNTER → 2023-04-19 | Outpatient (CLI) | payer BC, SELFPAY ==
--- NOTE | 2023-04-19 17:02 | RAD_ITS ---
STUDY: X-RAY - CERVICAL SPINE REASON FOR EXAM: Female, 68 years old. NECK PAIN RADIATING INTO LEFT SHOULDER X A COUPLE OF MONTHS TECHNIQUE: 3 view(s) of the cervical spine were obtained. COMPARISON: None FINDINGS: Normal anterior atlantoaxial articulation. Normal odontoid process. Normal cervical lordosis. There is multi-level endplate spondylosis. Loss of disc height at C5-C6 and C6-C7. Multilevel facet arthropathy with slight anterolisthesis C4-C5. The soft tissue structures are unremarkable. RAD/Cerv Spine 2 or 3 Views IMPRESSION: Multilevel degenerative disc disease and facet arthropathy. Electronically Signed: Mehdi Harvey (Brooks), at 17:40 EDT ,
--- NOTE | 2023-04-19 17:02 | RAD_ITS ---
STUDY: X-RAY - LEFT SHOULDER REASON FOR EXAM: Female, 68 years old. PAIN TECHNIQUE: 4 view(s) of the shoulder. COMPARISON: June 12, 2018 FINDINGS: Normal glenohumeral articulation. There is degenerative arthrosis of the acromioclavicular joint without inferior osseous spur formation. Normal acromion. There is demineralization of the humerus and visualized osseous structures. The soft tissue structures are unremarkable. Normal visualized pulmonary apex. RAD/Shoulder min 2 Views IMPRESSION: Mild acromioclavicular joint arthrosis. Osteopenia. Stable. Electronically Signed: Mehdi Harvey (Brooks), at 17:41 EDT ,
== END | disposition home or self-care (01) ==
LOC: RAD 17:01
PROVIDERS: PCP Family Medicine Geriatric Medicine; Visit Provider Family Medicine Geriatric Medicine
DX: M54.2 Cervicalgia (principal)
CPT/HCPCS: 72040; 73030

== ENCOUNTER 2023-04-21 07:45 | Day surgery (SDC) | payer BC, SELFPAY ==
[2023-04-21 08:06] VITALS: BP 141/76; PULSE 88; RESP 16; TEMP 36.4; O2SAT 94; BMI 29.2
[2023-04-21] MEDS: Lactated Ringers 1,000 ML 15 ML IV (08:14)
--- NOTE | 2023-04-21 09:18 | HP.PCM_ITS ---
History and Physical Date of Admission: 04/21/23 Intake Vital Signs 03/09/2309:06 Height 5 ft 9 in Weight: 201 lb 2 oz BMI 29.7 BP 128/81 H Blood Pressure Location Rt brachial Position Sitting Respiration 20 H Pulse 58 L Pulse Source Monitor Temp 97.1 F L Temp Source Temporal Pulse Oximetry (%) 99 Oxygen Delivery Method room air Intake Visit Reasons: C-Scope Positive Cologaurd Chief Complaint: c-scope Allergies No Known Allergies Allergy (Verified 03/25/16 16:26) Medications budesonide-formoterol HFA 160 mcg-4.5 mcg/actuation aerosol inhaler (Symbicort) 1 inhaler PO DAILY 08/07/15 [History Confirmed 03/09/23] venlafaxine 75 mg capsule,extended release 24 hr 75 mg PO DAILY 08/07/15 [History Confirmed 03/09/23] PFSH Surgical History (Updated 03/09/23 @ 09:06 by Sakshi Wilcox) Previous section Social History (Updated 03/09/23 @ 09:06 by Sakshi Wilcox) Smoking Status: Never smoker HPI HPI HPI: Patient is a 68-year-old female here for colonoscopy. Patient has never had a colonoscopy in the past. She denies any abdominal pain or blood in the stool. She had a positive Cologuard 2 years ago. She has not had a colonoscopy since. She denies any weight loss or family history of colon cancer. ROS General General: Yes fatigue; No weight change, appetite, colon cancer, breast cancer or weakness HEENT HEENT: No difficulty swallowing, eye injury, eye surgery, swollen glands or hoarseness Endo Endocrine: No thyroid disease, diabetes mellitus, thyroid cancer, Hair loss, heat intolerance or cold intolerance Skin Skin: No rash or changing moles Breast Breast: No left breast lump, right breast lump, nipple discharge, breast pain, abnormal mammogram, abnormal US or breast enlargement Musc Musculoskeletal: No back problems, arthritis, rheumatoid arthritis, gout or joint pain Cardio Cardiovascular: No murmur, pacemaker, heart disease, atrial fibrillation, high blood pressure, heart attack, heart stent, palpitations, shortness of breat with exertion or chest pain Psych Psychiatric: Yes depression; No anxiety or hearing voices Resp Respiratory: No shortness of breath, No sleep apnea, No cough, No COPD, Yes asthma, No emphysema and No wheezing Gastro Gastrointestinal: No abdominal pain, No nausea or vomiting, No diarrhea, No constipation, No blood in stool, No acid reflux, Yes hemorrhoids, No ulcers, No gallbladder problem and No black,tarry stools Antoni Hematologic: No blood thinners, No blood disorders, No bleeding, No anemia and No blood clots Neuro Neurologic: No system reviewed and no additional complaints, except as documented, No as per HPI, No abnormal gait, No abnormal hearing, No abnormal movements, No abnormal speech, No behavioral changes, No burning sensations, No confusion, No convulsions, No disequilibrium, No dizziness, No localized weakness, No frequent falls, No headache(s), No lack of coordination, No loss of vision, No memory loss, No numbness, No other visual disturbances, No radicular pain, No restless legs, No sensory deficit, No syncope, No tingling, No tremor(s), No weakness and No other Exam Const General: cooperative Orientation: alert and oriented x3 HENMT Head: normal to inspection Neck Neck: normal visual inspection and full ROM Chest Chest palpation & inspection: normal inspection of the chest Resp Effort & Inspection: normal respiratory effort Auscultation: clear to auscultation bilaterally Cardio Rate: regular rate Rhythm: regular rhythm GI Inspection: non-distended Palpation: soft and nontender Skin General: no rashes or lesions noted Neuro General: patient alert and patient oriented x3 Extrem General: full ROM Psych Appearance: grossly normal Mental Status: mental status grossly normal Assessment and Plan Assessment and Plan (1) Positive colorectal cancer screening using Cologuard test: Status: Acute Plan: Patient had positive Cologuard test 2 years ago and has not had a scope since. She has never had a scope in the past. Plan for colonoscopy. I explained endoscopy in detail to the patient. I explained the risks including but not limited to stroke or heart attack with anesthesia, perforation of the GI tract, bleeding, infection. I explained that any of these could necessitate further emergency surgery. The patient understands and all questions were answered sufficiently. The patient wishes to proceed with procedure. Richmond Valdez MD Pager: [facility] [address] [place] [address], [address] [place] [address] Office: I have examined the patient and the H&P has been reviewed. There are no clinical changes since date of exam.
--- NOTE | 2023-04-21 09:47 | OP.CCLET_ITS ---
04/21/2023 Geoff Perez MD [address] [place] [address] Re : Colonoscopy procedure for Pratima Noel Dear Dr. Perez This procedure was performed on Friday, April 21, 2023. My impressions and recommendations are as follows: Impressions : - The entire examined colon is normal on direct and retroflexion views. - No specimens collected. Recommendations : - Discharge patient to home. - Resume previous diet. - Continue present medications. - Repeat colonoscopy in 10 years for screening purposes. My findings are described in the full procedure note, which is enclosed. If I can be of further assistance, please feel free to contact me at Doctor phone number(s): , Work: . Sincerely, Richmond Valdez MD 04/21/2023 9:46:15 AM This report has been signed electronically.
--- NOTE | 2023-04-21 09:47 | OP.COLON_ITS ---
Patient Name: Pratima Noel Procedure Date: 04/21/2023 9:21 AM Date of : 1955 Age: 68 Procedure: Colonoscopy Indications: Positive Cologuard test Providers: Richmond Valdez MD Medicines: Monitored Anesthesia Care Patient Profile: This is a 68 year old female. Refer to note in patient chart for documentation of history and physical. Last Colonoscopy: more than 10 years ago. Complications: No immediate complications. Procedure: Pre-Anesthesia Assessment: - Prior to the procedure, a History and Physical was performed, and patient medications and allergies were reviewed. The patient's tolerance of previous anesthesia was also reviewed. The risks and benefits of the procedure and the sedation options and risks were discussed with the patient. All questions were answered, and informed consent was obtained. Prior Anticoagulants: The patient has taken no previous anticoagulant or antiplatelet agents. After reviewing the risks and benefits, the patient was deemed in satisfactory condition to undergo the procedure. After I obtained informed consent, the scope was passed under direct vision. Throughout the procedure, the patient's blood pressure, pulse, and oxygen saturations were monitored continuously. The colonoscope was introduced through the anus and advanced to the cecum, identified by appendiceal orifice and ileocecal valve. The colonoscopy was performed without difficulty. The patient tolerated the procedure well. The quality of the bowel preparation was good. Scope In: 9:29:45 AM Scope Withdrawal Time 0 hours 4 minutes 55 seconds Scope Out: 9:44:14 AM Total Procedure Duration Time 0 hours 14 minutes 29 seconds Findings: The entire examined colon appeared normal on direct and retroflexion views. Impression: - The entire examined colon is normal on direct and retroflexion views. - No specimens collected. Recommendation: - Discharge patient to home. - Resume previous diet. - Continue present medications. - Repeat colonoscopy in 10 years for screening purposes. Procedure Code(s): --- Professional --- 54329, Colonoscopy, flexible; diagnostic, including collection of specimen(s) by brushing or washing, when performed (separate procedure) Diagnosis Code(s): --- Professional --- R19.5, Other fecal abnormalities CPT copyright 2017 [employer]. All rights reserved. The codes documented in this report are preliminary and upon lever miller review may be revised to meet current compliance requirements. Richmond Valdez MD 04/21/2023 9:46:15 AM This report has been signed electronically. Number of Addenda: 0 Note Initiated On: 04/21/2023 9:21 AM
[2023-04-21 09:50] VITALS: BP 106/56; BP 141/76; PULSE 67; RESP 18; TEMP 36.7; O2SAT 96
[2023-04-21 09:53] VITALS: BP 141/76; BP 95/53; PULSE 63; RESP 20; O2SAT 95
[2023-04-21 09:55] VITALS: BP 102/48; BP 141/76; PULSE 66; RESP 18; O2SAT 95
[2023-04-21 10:04] VITALS: BP 111/79; BP 141/76; PULSE 66; RESP 18; TEMP 36.4; O2SAT 96
[2023-04-21 10:23] VITALS: BP 141/76
== END 2023-04-21 10:28 | disposition home or self-care (01) ==
LOC: EN 07:49 → AC 07:55
PROVIDERS: PCP Family Medicine Geriatric Medicine; Referring Provider Family Medicine Geriatric Medicine; Visit Provider Surgery
PROC: 0DJD8ZZ Inspection of Lower Intestinal Tract, Via Natural or Artificial Opening Endoscopic (ICD-10-PCS; CPT 45378; principal; 2023-04-21 08:40)
DX: Z12.11 Encounter for screening for malignant neoplasm of colon (principal); R19.5 Other fecal abnormalities; J45.909 Unspecified asthma, uncomplicated; Z79.51 Long term (current) use of inhaled steroids
CPT/HCPCS: 45378; J7120; J2405

== ENCOUNTER → 2023-06-07 | Outpatient (CLI) | payer BC, SELFPAY ==
--- NOTE | 2023-06-07 14:55 | RAD_ITS ---
INDICATION: RIB PAIN EXAMINATION/TECHNIQUE: X-RAY - XR Ribs Unilateral W/ PA Chest Min 3 Views COMPARISON: FINDINGS: SOFT TISSUES: No soft tissue swelling or gas. BONES: There is a fracture of the right seventh and eighth ribs. Multiple old right rib fractures. VISUALIZED LUNGS: Clear. No pneumothorax. RAD/Ribs Uni Min 3V w/PA Chest IMPRESSION: Right seventh and eighth rib fractures. Electronically Signed: Sacha Marti DO at 23:30 EDT ,
== END | disposition home or self-care (01) ==
LOC: RAD 14:41
PROVIDERS: PCP Family Medicine Geriatric Medicine; Referring Provider Family Medicine Geriatric Medicine; Visit Provider Family Medicine Geriatric Medicine
DX: R07.81 Pleurodynia (principal)
CPT/HCPCS: 71101

== ENCOUNTER → 2023-08-09 | Outpatient (CLI) | payer BC, SELFPAY ==
[2023-08-09 15:21] LABS: Absolute Lymphocyte Count 1.29 X10^3/uL (0.83-4.51); Absolute Neutrophil Count 6.2 X10^3/uL (2.0-7.7); Basophil# 0.04 X10^3/uL; Basophil% 0.5 % (0-1); Eosinophil# 0.09 X10^3/uL; Eosinophils% 1.1 % (0-5); Hematocrit 46.6 % (37-47); Hemoglobin 15.3 g/dL (12.0-15.0); Lymphocyte # 1.29 X10^3/ul (0.83-4.51); Lymphocyte % 15.4 % (19-41); Mean Corp Hgb Conc 32.8 g/dL (32-36); Mean Corpuscular Hgb 29.5 pg (27.0-32.0); Mean Corpuscular Volume 89.8 fL (81-99); Mean Platelet Vol. 8.6 fl (6.2-12.0); Monocyte# 0.77 X10^3/uL; Monocyte% 9.2 % (0-10); NRBC Flagged by Analyzer 0 % (0-5); Neutrophil # 6.17 X10^3/uL (2.7-7.7); Neutrophil % 73.3 % (47-70); Platelet Count 292 K/mm3 (150-450); RBC Distribution Width SD 42.5 fl (35.1-43.9); Red Blood Count 5.19 M/mm3 (4.2-5.4); White Blood Count 8.4 K/mm3 (4.4-11.0)
[2023-08-09 16:27] LABS: ALB/GLOB Ratio 0.9 RATIO (0.9-2.4); AST(SGOT) 16 U/L (15-37); Alanine Aminotransfer ALT/SGPT 26 U/L (13-56); Albumin, Serum 3.5 g/dL (3.2-5.0); Alkaline Phosphatase 119 U/L (45-117); Anion Gap 5 (5-15); BUN 13 mg/dL (7-18); BUN/Creat Ratio 17.9 RATIO (10-20); Calcium,Total 8.8 mg/dL (8.5-10.1); Chloride 109 mmol/L (98-107); Creatinine, Serum 0.73 mg/dL (0.55-1.02); EST Glomerular Filtration Rate 85 mL/min (>60); Est Glom Filt Rate - Afr Amer 102 mL/min (>60); Globulin 3.7 g/dL (2.2-4.2); Glucose 111 mg/dL (74-106); Potassium 3.7 mmol/L (3.5-5.1); Protein, Total 7.2 g/dL (6.4-8.2); Sodium Level 141 mmol/L (136-145); Thyroid Stim Hormone (TSH) 3.43 uIU/mL (0.358-3.74)
[2023-08-09 16:49] LABS: Syphilis Antibodies Non-reactive; Vitamin B12 205 pg/mL (211-911)
== END | disposition home or self-care (01) ==
LOC: POLAB3 14:15
PROVIDERS: PCP Family Medicine Geriatric Medicine; Visit Provider Family Medicine Geriatric Medicine
DX: G31.84 Mild cognitive impairment of uncertain or unknown etiology (principal)
CPT/HCPCS: 36415; 80053; 82607; 82746; 83036; 84443; 85025; 86780

== ENCOUNTER → 2023-08-16 | Outpatient (CLI) | payer BC, SELFPAY ==
--- NOTE | 2023-08-16 14:18 | CT_ITS ---
STUDY: CT BRAIN WITHOUT CONTRAST REASON FOR EXAM: Female, 68 years old. MILD COGNITIVE IMAIRMENT X 6 MONTHS RADIATION DOSAGE (If Supplied By Facility): CTDIvol = ( 47.06 ) mGy, DLP = ( 890.33 ) mGycm TECHNIQUE: Transaxial CT imaging of the brain was performed without administration of intravenous contrast material. Individualized dose optimization techniques were used for this CT. COMPARISON: No relevant priors. FINDINGS: Normal soft tissue structures. Normal calvarium. Normal size ventricles and extra-axial spaces for the patient''s age. Normal white matter tracts of the cerebral hemispheres. Normal basal ganglia and thalami. Normal brainstem. Normal cerebellum. There is no intracranial hemorrhage. There are no findings of an acute ischemic infarction. Atherosclerotic calcification of the cavernous portions of the internal carotid arteries and vertebral arteries. Normal visualized paranasal sinuses. CT/Brain/Head without Contrast IMPRESSION: Normal unenhanced CT scan of the brain. Electronically Signed: Justin Leon MD at 14:45 EDT ,
== END | disposition home or self-care (01) ==
LOC: CT 14:07
PROVIDERS: PCP Family Medicine Geriatric Medicine; Referring Provider Family Medicine Geriatric Medicine; Visit Provider Family Medicine Geriatric Medicine
DX: G31.84 Mild cognitive impairment of uncertain or unknown etiology (principal)
CPT/HCPCS: 70450

== ENCOUNTER → 2023-11-21 | Outpatient (CLI) | payer BC, SELFPAY ==
[2023-11-21 16:19] LABS: Absolute Lymphocyte Count 1.31 X10^3/uL (0.83-4.51); Absolute Neutrophil Count 5.1 X10^3/uL (2.0-7.7); Basophil# 0.05 X10^3/uL; Basophil% 0.7 % (0-1); Eosinophil# 0.31 X10^3/uL; Eosinophils% 4.2 % (0-5); Hematocrit 42.5 % (37-47); Hemoglobin 14.1 g/dL (12.0-15.0); Lymphocyte # 1.31 X10^3/ul (0.83-4.51); Lymphocyte % 17.6 % (19-41); Mean Corp Hgb Conc 33.2 g/dL (32-36); Mean Corpuscular Hgb 29.1 pg (27.0-32.0); Mean Corpuscular Volume 87.6 fL (81-99); Mean Platelet Vol. 8.9 fl (6.2-12.0); Monocyte# 0.64 X10^3/uL; Monocyte% 8.6 % (0-10); NRBC Flagged by Analyzer 0 % (0-5); Neutrophil % 68.6 % (47-70); Platelet Count 270 K/mm3 (150-450); RBC Distribution Width CV 13.7 % (11.6-14.6); RBC Distribution Width SD 44.1 fl (35.1-43.9); Red Blood Count 4.85 M/mm3 (4.2-5.4); White Blood Count 7.4 K/mm3 (4.4-11.0)
[2023-11-21 16:40] LABS: ALB/GLOB Ratio 1.1 RATIO (0.9-2.4); AST(SGOT) 15 U/L (15-37); Alanine Aminotransfer ALT/SGPT 22 U/L (13-56); Albumin, Serum 3.7 g/dL (3.2-5.0); Alkaline Phosphatase 107 U/L (45-117); Anion Gap 5 (5-15); BUN 12 mg/dL (7-18); BUN/Creat Ratio 15.6 RATIO (10-20); Chloride 110 mmol/L (98-107); Creatinine, Serum 0.77 mg/dL (0.55-1.02); EST Glomerular Filtration Rate 80 mL/min (>60); Est Glom Filt Rate - Afr Amer 96 mL/min (>60); Globulin 3.3 g/dL (2.2-4.2); Glucose 110 mg/dL (74-106); Potassium 4.2 mmol/L (3.5-5.1); Sodium Level 142 mmol/L (136-145); Thyroid Stim Hormone (TSH) 5.26 uIU/mL (0.358-3.74)
[2023-11-21 16:42] LABS: Vitamin D,25 Hydroxy 30.8 ng/mL
== END | disposition home or self-care (01) ==
LOC: POLAB3 15:17
PROVIDERS: PCP Family Medicine Geriatric Medicine; Visit Provider Family Medicine Geriatric Medicine
DX: R53.83 Other fatigue (principal); E55.9 Vitamin D deficiency, unspecified
CPT/HCPCS: 36415; 80053; 82306; 84443; 85025

== ENCOUNTER → 2023-12-26 | Outpatient (CLI) | payer MEDICARE, BC, SELFPAY ==
--- NOTE | 2023-12-26 12:30 | BI_ITS ---
MAMMOGRAPHY - BILATERAL SCREENING 3-D TOMOSYNTHESIS REASON FOR EXAM: Female, 68 years old. SCREENING PERTINENT HISTORY: No significant family history. TECHNIQUE: 2-D mammograms and 3-D Tomosynthesis of the breast (s) were performed. CAD was performed. COMPARISON: 03/01/2017 FINDINGS: The breast composition is heterogeneously dense that can obscure small breast masses. Scattered benign calcifications are seen. No dense spiculated masses or suspicious microcalcifications are identified. No architectural distortion is identified. There is no skin thickening or retraction. There has been no significant change since the prior study. Bilateral benign vascular calcifications can be associated with coronary artery disease. Increase in the number of the bilateral benign rodlike calcifications. BI/SCRN MAMM (CAD)W/EVER BILAT IMPRESSION: No mammographic signs of malignancy. Routine yearly mammograms recommended. ASSESSMENT CATEGORY: BIRADS Category 2: Benign. A letter regarding these results will be sent to the patient by the facility within 30 days. FOLLOW UP RECOMMENDATION: Yearly follow up mammogram recommended. (A) Approximately 10% of breast cancers are not detected by mammography. A normal mammogram should not delay biopsy of a clinically suspicious abnormality. Electronically Signed: Gary Faustin MD at 17:33 EST ,
--- NOTE | 2023-12-26 12:33 | BD_ITS ---
STUDY: DUAL ENERGY X-RAY ABSORPTIOMETRY / DXA REASON FOR EXAM: Female, 68 years old. M810 TECHNIQUE: Bone Mineral Density (BMD) measurements of lumbar spine and bilateral hips were obtained. COMPARISON: None. FINDINGS: Lumbar Spine (L1-L4): g/cm2 (0.868) / T-score (-2.1) / Z-score (-0.1) Findings are suggestive of osteopenia with a high fracture risk. Left Femur Total: g/cm2 (0.822) / T-score (-1.0) / Z-score (0.4) Left Femoral Neck: g/cm2 (0.725) / T-score (-1.1) / Z-score (0.6) Right Femur Total: g/cm2 (0.738) / T-score (-1.7) / Z-score (-0.3) Right Femoral Neck: g/cm2 (0.660) / T-score (-1.7) / Z-score (0.0) BD/Dexa Bone Density Study IMPRESSION: The patient is considered osteopenic as outlined below according to World [employer] Organization (WHO) criteria with a high fracture risk. Reference Information: The T-score is the number of standard deviations above or below the standard which is normal for young adults at their peak bone mineral density. The World Health Organization (WHO) interprets the T-scores as follows: Above -1 Normal bone density Between -1 and -2.5 Osteopenia Equal to / or below -2.5 Osteoporosis As a practical clinical guideline, osteopenia may be graded as follows: Mild -1 through -1.5 Moderate -1.6 through -2.0 Severe -2.1 through -2.4 The Z-score is the number of standard deviations above or below age-matched controls. A Z-score of less than -1.5 would be considered abnormal. References: 1. NIH Osteoporosis and Related Bone Diseases www osteo.org 2. International Society for Clinical Densitometry www iscd.org 3. National Osteoporosis Foundation www nof.org Electronically Signed: Justin Leon MD at 14:15 EDT ,
== END | disposition home or self-care (01) ==
PROVIDERS: PCP Family Medicine Geriatric Medicine; Referring Provider Family Medicine Geriatric Medicine; Visit Provider Family Medicine Geriatric Medicine
DX: Z12.31 Encounter for screening mammogram for malignant neoplasm of breast (principal); M81.0 Age-related osteoporosis without current pathological fracture
CPT/HCPCS: 77063; 77067; 77080

== ENCOUNTER → 2024-05-02 | Outpatient (CLI) | payer MEDICARE, SELFPAY | END | disposition home or self-care (01) | PROVIDERS: PCP Family Medicine Geriatric Medicine; Referring Provider Family Medicine Geriatric Medicine; Visit Provider Family Medicine Geriatric Medicine | DX: R68.83 Chills (without fever) (principal) | CPT/HCPCS: 87631 ==

== ENCOUNTER → 2024-05-27 | Outpatient (CLI) | payer MEDICARE, SELFPAY ==
[2024-05-27 16:03] LABS: Absolute Lymphocyte Count 1.61 X10^3/uL (0.83-4.51); Absolute Neutrophil Count 6.2 X10^3/uL (2.0-7.7); Basophil# 0.06 X10^3/uL; Basophil% 0.7 % (0-1); Eosinophil# 0.36 X10^3/uL; Hematocrit 45.5 % (37-47); Hemoglobin 15.2 g/dL (12.0-15.0); Lymphocyte # 1.61 X10^3/ul (0.83-4.51); Lymphocyte % 17.8 % (19-41); Mean Corp Hgb Conc 33.4 g/dL (32-36); Mean Corpuscular Hgb 29.3 pg (27.0-32.0); Mean Corpuscular Volume 87.7 fL (81-99); Mean Platelet Vol. 8.8 fl (6.2-12.0); Monocyte# 0.81 X10^3/uL; Monocyte% 8.9 % (0-10); NRBC Flagged by Analyzer 0 % (0-5); Neutrophil % 68.3 % (47-70); Platelet Count 320 K/mm3 (150-450); RBC Distribution Width CV 12.8 % (11.6-14.6); RBC Distribution Width SD 41.2 fl (35.1-43.9); Red Blood Count 5.19 M/mm3 (4.2-5.4); White Blood Count 9.1 K/mm3 (4.4-11.0)
[2024-05-27 16:43] LABS: ALB/GLOB Ratio 1.1 RATIO (0.9-2.4); AST(SGOT) 28 U/L (15-37); Alanine Aminotransfer ALT/SGPT 19 U/L (13-56); Albumin, Serum 3.7 g/dL (3.2-5.0); Alkaline Phosphatase 99 U/L (45-117); Anion Gap 5 (5-15); BUN 12 mg/dL (7-18); BUN/Creat Ratio 14.7 RATIO (10-20); Calcium,Total 8.9 mg/dL (8.5-10.1); Chloride 109 mmol/L (98-107); Cholesterol 209 mg/dL (200); Creatinine, Serum 0.82 mg/dL (0.55-1.02); EST Glomerular Filtration Rate 74 mL/min (>60); Est Glom Filt Rate - Afr Amer 90 mL/min (>60); Globulin 3.5 g/dL (2.2-4.2); Glucose 125 mg/dL (74-106); High Density Lipoprotein 71 mg/dL; Potassium 3.6 mmol/L (3.5-5.1); Protein, Total 7.2 g/dL (6.4-8.2); Sodium Level 140 mmol/L (136-145); Thyroid Stim Hormone (TSH) 5.08 uIU/mL (0.358-3.74); Triglycerides 142 mg/dL; Very Low Density Lipoprotein 28 mg/dL (5-40)
== END | disposition home or self-care (01) ==
LOC: POLAB3 15:02
PROVIDERS: PCP Family Medicine Geriatric Medicine; Visit Provider Family Medicine Geriatric Medicine
DX: R53.83 Other fatigue (principal); E55.9 Vitamin D deficiency, unspecified; E78.5 Hyperlipidemia, unspecified
CPT/HCPCS: 36415; 80053; 80061; 82306; 84443; 85025; 87631

== ENCOUNTER → 2024-07-24 | Outpatient (CLI) | payer MEDICARE, SELFPAY | END | disposition home or self-care (01) | LOC: LAB 13:30 | PROVIDERS: PCP Family Medicine Geriatric Medicine; Referring Provider Family Medicine Geriatric Medicine; Visit Provider Family Medicine Geriatric Medicine | DX: E03.9 Hypothyroidism, unspecified (principal) | CPT/HCPCS: 36415; 84443 ==

== ENCOUNTER 2024-08-07 14:12 | Outpatient (CLI) | payer MEDICARE, SELFPAY ==
[2024-08-14 02:07] LABS: Immunoglobulin A 232 mg/dL (87-352); Immunoglobulin E 32 IU/mL (6-495); Immunoglobulin G 682 mg/dL (586-1602); Immunoglobulin M 83 mg/dL (26-217)
== END 2024-08-07 23:59 | disposition home or self-care (01) ==
LOC: POLAB3 14:12
PROVIDERS: PCP Family Medicine Geriatric Medicine; Visit Provider Family Medicine Geriatric Medicine
DX: E03.9 Hypothyroidism, unspecified (principal); D84.9 Immunodeficiency, unspecified; R68.83 Chills (without fever)
CPT/HCPCS: 36415; 82784; 82785; 84443; 87631

== ENCOUNTER → 2024-10-03 | Outpatient (CLI) | payer MEDICARE, SELFPAY | END | disposition home or self-care (01) | LOC: POLAB3 13:21 | PROVIDERS: PCP Family Medicine Geriatric Medicine; Visit Provider Family Medicine Geriatric Medicine | DX: E03.9 Hypothyroidism, unspecified (principal) | CPT/HCPCS: 36415; 82784; 82785; 84443 ==

== ENCOUNTER → 2024-12-03 | Outpatient (CLI) | payer MEDICARE, SELFPAY ==
[2024-12-03 15:27] LABS: Absolute Lymphocyte Count 1.63 X10^3/uL (0.83-4.51); Absolute Neutrophil Count 5.7 X10^3/uL (2.0-7.7); Basophil# 0.03 X10^3/uL; Basophil% 0.4 % (0-1); Eosinophils% 2.4 % (0-5); Hematocrit 43.7 % (37-47); Hemoglobin 14.3 g/dL (12.0-15.0); Lymphocyte # 1.63 X10^3/ul (0.83-4.51); Lymphocyte % 19.6 % (19-41); Mean Corp Hgb Conc 32.7 g/dL (32-36); Mean Corpuscular Hgb 28.5 pg (27.0-32.0); Mean Corpuscular Volume 87.1 fL (81-99); Mean Platelet Vol. 8.6 fl (6.2-12.0); Monocyte# 0.75 X10^3/uL; NRBC Flagged by Analyzer 0 % (0-5); Neutrophil % 68.4 % (47-70); Platelet Count 278 K/mm3 (150-450); RBC Distribution Width CV 13.1 % (11.6-14.6); RBC Distribution Width SD 41.1 fl (35.1-43.9); Red Blood Count 5.02 M/mm3 (4.2-5.4); White Blood Count 8.3 K/mm3 (4.4-11.0)
[2024-12-03 17:21] LABS: ALB/GLOB Ratio 1.1 RATIO (0.9-2.4); AST(SGOT) 22 U/L (15-37); Alanine Aminotransfer ALT/SGPT 20 U/L (13-56); Albumin, Serum 3.6 g/dL (3.2-5.0); Alkaline Phosphatase 92 U/L (45-117); Anion Gap 8 (5-15); BUN 12 mg/dL (7-18); BUN/Creat Ratio 16.7 RATIO (10-20); Calcium,Total 8.6 mg/dL (8.5-10.1); Chloride 107 mmol/L (98-107); Cholesterol 199 mg/dL (200); Creatinine, Serum 0.72 mg/dL (0.55-1.02); EST Glomerular Filtration Rate 86 mL/min (>60); Est Glom Filt Rate - Afr Amer 104 mL/min (>60); Globulin 3.4 g/dL (2.2-4.2); Glucose 89 mg/dL (74-106); High Density Lipoprotein 68 mg/dL; Potassium 4.1 mmol/L (3.5-5.1); Sodium Level 138 mmol/L (136-145); Triglycerides 122 mg/dL; Very Low Density Lipoprotein 24 mg/dL (5-40)
[2024-12-03 17:41] LABS: Vitamin D,25 Hydroxy 30.5 ng/mL
== END | disposition home or self-care (01) ==
LOC: LAB 14:55
PROVIDERS: PCP Family Medicine Geriatric Medicine; Referring Provider Family Medicine Geriatric Medicine; Visit Provider Family Medicine Geriatric Medicine
DX: R53.83 Other fatigue (principal); E55.9 Vitamin D deficiency, unspecified; E78.5 Hyperlipidemia, unspecified
CPT/HCPCS: 36415; 80053; 80061; 82306; 84443; 85025

== ENCOUNTER → 2024-12-17 | Outpatient (CLI) | payer MEDICARE, SELFPAY | END | disposition home or self-care (01) | LOC: POLAB3 14:14 | PROVIDERS: PCP Family Medicine Geriatric Medicine; Visit Provider Family Medicine Geriatric Medicine | DX: R68.83 Chills (without fever) (principal) | CPT/HCPCS: 87631 ==

== ENCOUNTER → 2025-01-06 | Outpatient (CLI) | payer MEDICARE, SELFPAY | END | disposition home or self-care (01) | LOC: POLAB3 15:14 | PROVIDERS: PCP Family Medicine Geriatric Medicine; Visit Provider Family Medicine Geriatric Medicine | DX: R68.83 Chills (without fever) (principal); R06.02 Shortness of breath | CPT/HCPCS: 36415; 85379; 87631 ==

== ENCOUNTER → 2025-01-07 | Outpatient (CLI) | payer MEDICARE, SELFPAY ==
--- NOTE | 2025-01-07 07:54 | CT_ITS ---
EXAM: CT Angiography Chest Without and With Intravenous Contrast CLINICAL INDICATION: SOB, ELEVATED D-DIMER TECHNIQUE: Axial computed tomographic angiography images of the chest without and with intravenous contrast. This CT exam was performed using one or more of the following dose reduction techniques: automated exposure control, adjustment of the mA and/or kV according to patient size, and/or use of iterative reconstruction technique. MIP reconstructed images were created and reviewed. COMPARISON: No relevant prior studies available. FINDINGS: LIMITATIONS: Suboptimal opacification of the pulmonary arteries. PULMONARY ARTERIES: No pulmonary embolism is identified. Some of the distal pulmonary arteries cannot be evaluated due to suboptimal opacification. AORTA: No acute findings. No thoracic aortic aneurysm. LUNGS AND PLEURAL SPACES: Lung emphysema. Lingular atelectasis or scarring. No mass. No significant effusion. No pneumothorax. HEART: Unremarkable. No cardiomegaly. No significant pericardial effusion. No evidence of RV dysfunction. BONES/JOINTS: No acute fracture. No dislocation. SOFT TISSUES: Unremarkable. LYMPH NODES: Unremarkable. No enlarged lymph nodes. CT/CTA Chest W/WO Contrast IMPRESSION: No pulmonary embolism is identified. Some of the distal pulmonary arteries can not be evaluated due to suboptimal opacification. Reading [facility]
== END | disposition home or self-care (01) ==
LOC: CT 07:54
PROVIDERS: PCP Family Medicine Geriatric Medicine; Referring Provider Family Medicine Geriatric Medicine; Visit Provider Family Medicine Geriatric Medicine
DX: R06.02 Shortness of breath (principal); R79.89 Other specified abnormal findings of blood chemistry
CPT/HCPCS: 71275; Q9967

== ENCOUNTER 2025-01-28 16:57 | Outpatient (CLI) | payer MEDICARE, SELFPAY | END 2025-01-28 23:59 | disposition home or self-care (01) | LOC: LAB 16:57 | PROVIDERS: PCP Family Medicine Geriatric Medicine; Referring Provider Family Medicine Geriatric Medicine; Visit Provider Family Medicine Geriatric Medicine | DX: J98.8 Other specified respiratory disorders (principal); R68.83 Chills (without fever) | CPT/HCPCS: 87070; 87205; 87631; 87641 ==

== ENCOUNTER → 2025-01-28 | Outpatient (CLI) | payer MEDICARE, SELFPAY | END | disposition home or self-care (01) | LOC: LABSPEC 17:53 | PROVIDERS: PCP Family Medicine Geriatric Medicine; Visit Provider Family Medicine Geriatric Medicine | DX: R68.83 Chills (without fever) (principal) | CPT/HCPCS: 87631 ==

== ENCOUNTER → 2025-02-21 | Outpatient (CLI) | payer MEDICARE, SELFPAY | END | disposition home or self-care (01) | LOC: LABSPEC 13:09 | PROVIDERS: PCP Family Medicine Geriatric Medicine; Referring Provider Family Medicine Geriatric Medicine; Visit Provider Family Medicine Geriatric Medicine | DX: J98.8 Other specified respiratory disorders (principal) | CPT/HCPCS: 87631 ==

== ENCOUNTER → 2025-03-18 | Outpatient (CLI) | payer MEDICARE, SELFPAY ==
--- NOTE | 2025-03-18 12:45 | RAD_ITS ---
PROCEDURE: CHEST PA AND LATERAL 03/18/2025 REASON FOR EXAM: SOB TECHNIQUE: Frontal and lateral views of the chest. COMPARISON: 06/07/2023 FINDINGS: The lungs appear clear. The cardiac and mediastinal contours appear within limits. Old appearing right-sided rib fracture deformities. Upper lumbar compression deformity again noted. RAD/Chest PA and Lateral IMPRESSION: No evidence of acute disease. Reading Location: [id number]
[2025-03-18 13:23] LABS: Absolute Neutrophil Count 4.6 X10^3/uL (2.0-7.7); Basophil# 0.05 X10^3/uL; Basophil% 0.7 % (0-1); Eosinophil# 0.34 X10^3/uL; Hematocrit 43.7 % (37-47); Hemoglobin 14.8 g/dL (12.0-15.0); Lymphocyte % 16.2 % (19-41); Mean Corp Hgb Conc 33.9 g/dL (32-36); Mean Corpuscular Volume 85.5 fL (81-99); Mean Platelet Vol. 8.5 fl (6.2-12.0); Monocyte# 0.67 X10^3/uL; Monocyte% 9.9 % (0-10); NRBC Flagged by Analyzer 0 % (0-5); Neutrophil # 4.62 X10^3/uL (2.7-7.7); Neutrophil % 67.9 % (47-70); Platelet Count 243 K/mm3 (150-450); RBC Distribution Width CV 13.4 % (11.6-14.6); RBC Distribution Width SD 41.7 fl (35.1-43.9); Red Blood Count 5.11 M/mm3 (4.2-5.4); White Blood Count 6.8 K/mm3 (4.4-11.0)
[2025-03-18 13:35] LABS: D-Dimer Quantitative (DVT/PE) 0.38 FEU/ug/m (0.27-0.49)
[2025-03-18 13:52] LABS: Anion Gap 12 (5-15); BUN 8 mg/dL (4-19); BUN/Creat Ratio 11.2 RATIO (10-20); Calcium,Total 9.2 mg/dL (7.6-11.0); Carbon Dioxide 23.1 mmol/L (21.0-32.0); Chloride 106 mmol/L (98-108); Creatinine, Serum 0.69 mg/dL (0.70-1.20); EST Glomerular Filtration Rate 94 (>60); Glucose 101 mg/dL (70-99); Potassium 4.1 mmol/L (3.3-5.1); Sodium Level 141 mmol/L (133-145)
== END | disposition home or self-care (01) ==
LOC: RAD 12:23 → LABSPEC 16:32
PROVIDERS: PCP Family Medicine Geriatric Medicine; Referring Provider Family Medicine Geriatric Medicine; Visit Provider Family Medicine Geriatric Medicine
DX: R06.02 Shortness of breath (principal); R53.83 Other fatigue; R05.9 Cough, unspecified; R06.2 Wheezing
CPT/HCPCS: 36415; 71046; 80048; 85025; 85379; 87631

== ENCOUNTER 2025-04-06 14:42 | Observation (INO) | payer MEDICARE, SELFPAY ==
[2025-04-06] VITALS (14 sets, daily range): BP systolic 140–160; BP diastolic 75–109; PULSE 97–115; RESP 15–30; TEMP 36.5–36.8; O2SAT 83–97; BMI 28.2; BMI 27.2
--- NOTE | 2025-04-06 15:14 | EKG12_ITS ---
Test Reason : SOB Blood Pressure : */* mmHG Vent. Rate : 108 BPM Atrial Rate : 108 BPM P-R Int : 136 ms QRS Dur : 90 ms QT Int : 352 ms P-R-T Axes : 65 93 66 degrees QTcB Int : 471 ms Sinus tachycardia Rightward axis Borderline ECG Confirmed by SALVATORE GRAY, MYKEL ([id number]), dictionary editor DIOMEDES LAUREN ([id number]) on 04/08/2025 7:42:57 AM Referred By: ERICKA Confirmed By: MYKEL CHASE MD
--- NOTE | 2025-04-06 15:16 | EDS_ITS ---
HPI History of Present Illness Chief Complaint: Shortness of Breath Informant: patient and spouse/S.O. Narrative Narrative: 70-year-old female presenting to the emergency room by private vehicle with a chief complaint of shortness of breath. Patient notes a history of asthma. She states that over the past several days she has had a progressive worsening shortness of breath. She had to come home from work early on Monday. states he tried to get her to come to the emergency department yesterday. Today states that today she was noticeably more short of breath. Nursing notes a pulse ox of 83% on room air. She does not wear home oxygen. She uses Symbicort and has a rescue inhaler of albuterol. She denies history of CHF. No chest pain. She notes a occasionally productive cough. No fever or chills. No diarrhea or vomiting. No significant rhinorrhea. She states she has never had to be hospitalized for her asthma. She is a non-smoker. [facility] Medical History Wears glasses Cancer Post-menopausal Depression Non-smoker Asthma Home Medications ?Medication ?Instructions ?Recorded ?Last Taken ?Type budesonide-formoterol HFA 160 1 inhaler PO DAILY 08/07 Unknown History mcg-4.5 mcg/actuation aerosol inhaler (Symbicort) multivitamin with minerals-folic 1 tab PO DAILY Unknown History acid 200 mcg chewable tablet (Multivitamin Gummies) albuterol sulfate 90 mcg/actuation 2 puff inhalation Q 4H 04/06/25 Unknown History aerosol inhaler levothyroxine 50 mcg tablet 50 mcg PO DAILY 04/06/25 U nknown History oxybutynin chloride 5 mg tablet 5 mg PO BID 04/06/25 U nknown History venlafaxine 37.5 mg tablet 37.5 mg PO DAILY 04/06/25 U nknown History Allergy/AdvReac Type Severity Reaction Status Date / Time cat dander Allergy dyspnea Verified 04/06/25 14:46 Surgical History Previous section Social History Smoking Status: Former smoker ROS ROS ED Constitutional Constitutional ED: Denies chills, fever(s), sweats or weight loss Eyes Eyes: Denies change in vision or diplopia ENT ENT ED: Denies ear pain, rhinorrhea or sore throat Cardiovascular Cardiovascular: Denies chest pain, orthopnea, palpitations or racing heartbeat Respiratory/Chest Respiratory/Chest: Reports cough, dyspnea, dyspnea on exertion and sputum; D enies orthopnea Gastrointestinal Gastrointestinal: Denies abdominal pain, diarrhea, nausea or vomiting Genitourinary Genitourinary ED: Denies dysuria, hematuria or urinary frequency Musculoskeletal Musculoskeletal: Denies arthralgias or myalgias Integumentary Denies abscess or rash Neurologic Neurologic: Denies headache(s), paresthesias or weakness Psychiatric Psychiatric: Denies anxiety, depression, suicidal ideation or suicidal thoughts Endocrine Endocrinology: Denies polydipsia, polyphagia or polyuria Allergic/Immunologic Allergic/Immunologic ED: Denies mouth swelling, tongue swelling or urticaria EXAM Physical Exam Const Vital Signs: 04/06/25 14:43 04/06/25 14:46 04/06/25 14:46 Temperature 97.8 F 97.8 F Temperature Source Temporal Oral Pulse Rate 105 H 105 H Respiratory Rate 30 H 30 H Respiratory Effort Respiratory Depth Respiratory Pattern Blood Pressure 147/87 H 147/87 H Blood Pressure Mean 107 107 Pulse Ox 83 96 96 Oxygen Delivery Method Room Air Nasal Cannula Nasal Cannula Oxygen Flow Rate (L/min) 4 4 04/06/25 15:04 04/06/25 15:18 04/06/25 15:23 Temperature Temperature Source Pulse Rate 111 H Respiratory Rate 22 H Respiratory Effort Short of Breath Labored Respiratory Depth Shallow Respiratory Pattern Tachypnea Tachypnea Blood Pressure Blood Pressure Mean Pulse Ox Oxygen Delivery Method Nasal Cannula Oxygen Flow Rate (L/min) 4 4 04/06/25 15:33 04/06/25 15:43 04/06/25 15:46 Temperature 98.3 F Temperature Source Oral Pulse Rate 115 H 105 H Respiratory Rate 22 H 22 H Respiratory Effort Respiratory Depth Respiratory Pattern Blood Pressure 151/109 H 148/87 H Blood Pressure Mean 123 107 Pulse Ox 96 97 94 Oxygen Delivery Method Nasal Cannula Nasal Cannula Nasal Cannula Oxygen Flow Rate (L/min) 3 2 2 04/06/25 17:00 04/06/25 18:00 04/06/25 18:14 Temperature 98.2 F Temperature Source Pulse Rate 97 99 100 Respiratory Rate 18 16 15 Respiratory Effort Respiratory Depth Respiratory Pattern Blood Pressure 140/86 H 150/85 H 160/75 H Blood Pressure Mean 104 106 103 Pulse Ox 94 97 93 Oxygen Delivery Method Room Air Oxygen Flow Rate (L/min) Positive well nourished and well developed General Appearance ED: well developed HEENT Reports normocephalic, head/scalp atraumatic and moist mucous membranes Eyes PERRL and EOMs intact bilaterally Neck no lymphadenopathy, supple and no JVD Resp Resp Narrative: Patient is tachypneic with both inspiratory and expiratory wheezing as well as bilateral rhonchi throughout. Cardio regular rate, regular rhythm and no murmurs Cardio Narrative: +2 pulses upper and lower extremities Rate: tachycardic GI normal to inspection, nondistended, normoactive bowel sounds and non-tender Palpation: soft Back/Spine no CVA tenderness and normal ROM Extremity normal to inspection General Extremety ED: Negative for edema General Extremity: Negative for edema Neuro oriented x3 and CN's II-XII intact bilaterally Sensorium / Orientation: alert Motor Exam: strength 5/5 throughout Psych mental status grossly normal Mood & Affect: Negative for depressed or tearful Skin no rashes or lesions noted and no wounds MDM MDM MDM Narrative Medical decision making narrative: Differential diagnosis includes but not limited to congestive heart failure asthma exacerbation pleural effusion pneumonia bronchitis pulmonary embolism acute coronary syndrome viral syndrome EKG done upon arrival shows a sinus tachycardia at a ventricular rate of 108 bpm. White count 7.8 hemoglobin 15.4 platelet count of 234. BMP shows a creatinine 0.68 glucose of 121 troponin is 8. My independent interpretation of the chest x-ray is no acute process. Patient received breathing treatments and Solu-Medrol. She is feeling significantly better. Repeat lung auscultation shows some end expiratory wheeze. She is satting around 94% on room air currently. Patient was ambulated. She dropped to 85%. Patient was allowed to rest. We reambulated her after about another hour and she again dropped into the 80s with a heart rate in the 120s. Using shared decision making plan of care will be observation tonight in the hospital. History & Record Review Discussion w/independent historian: Patient and Significant other Additional record(s) reviewed:: Prior ED visit and Prior labs Lab Data Attestation: I reviewed the patient's lab results. Labs: Laboratory Results - last 24 hr 04/06/25 15:00 WBC 7.8 RBC 5.30 Hgb 15.4 H Hct 44.9 MCV 84.7 MCH 29.1 MCHC 34.3 RDW Std Deviation 41.7 RDW Coeff of Eboni 13.5 Plt Count 234 MPV 8.9 Immature Gran % (Auto) 0.400 Neut % (Auto) 57.8 Lymph % (Auto) 20.6 Mellette % (Auto) 12.2 H Eos % (Auto) 8.2 H Baso % (Auto) 0.8 Absolute Neuts (auto) 4.5 Absolute Lymphs (auto) 1.60 Nucleated RBC % 0 Sodium 141 Potassium 3.9 Chloride 104 Carbon Dioxide 25.7 Anion Gap 11 BUN 8 Creatinine 0.68 L Estim Creat Clear Calc 77.95 Est GFR (MDRD) Non-Af 94 BUN/Creatinine Ratio 11.7 Glucose 121 H Calcium 9.4 Troponin T High Sens 8 Radiography Diagnostic Testing: Clinical Impression(s) from Imaging Studies Chest X-Ray 04/06/25 15:50 IMPRESSION: No Acute Findings. Reading Location: [facility] EKG Initial EKG: Attestation: I personally reviewed and interpreted this EKG as follows: Comments: Sinus tachycardia ventricular rate of 108 bpm. Management Discussion w/another healthcare provider: Hospitalist Discharge Plan Triage Chief Complaint: Shortness of Breath ED Provider: Shay Simpson Dx/Rx/DC Orders Clinical Impression: Asthma exacerbation, Hypoxia Prescriptions: No Action budesonide-formoterol [Symbicort] 1 INHALER inhaler 1 inhaler PO DAILY Patient Comments: multivit with min-folic acid [Multivitamin Gummies] 200 mcg Tablet,Chewable 1 tab PO DAILY albuterol sulfate 90 mcg/actuation HFA aerosol inhaler 2 puff inhalation Q4H levothyroxine 50 mcg tablet 50 mcg PO DAILY venlafaxine 37.5 mg tablet 37.5 mg PO DAILY oxybutynin chloride 5 mg tablet 5 mg PO BID Primary Care Provider: Geoff Perez Chi Referrals: Geoff Perez Chi, MD [Primary Care Provider] - Print Language: Ukrainian
[2025-04-06] MEDS: Ipratropium/Albuterol Sulfate 3 ML AMPUL.NEB INHALATION (15:22)
[2025-04-06 15:23] LABS: Absolute Neutrophil Count 4.5 X10^3/uL (2.0-7.7); Basophil# 0.06 X10^3/uL; Basophil% 0.8 % (0-1); Eosinophil# 0.64 X10^3/uL; Eosinophils% 8.2 % (0-5); Hematocrit 44.9 % (37-47); Hemoglobin 15.4 g/dL (12.0-15.0); Lymphocyte % 20.6 % (19-41); Mean Corp Hgb Conc 34.3 g/dL (32-36); Mean Corpuscular Hgb 29.1 pg (27.0-32.0); Mean Corpuscular Volume 84.7 fL (81-99); Mean Platelet Vol. 8.9 fl (6.2-12.0); Monocyte# 0.95 X10^3/uL; Monocyte% 12.2 % (0-10); NRBC Flagged by Analyzer 0 % (0-5); Neutrophil # 4.49 X10^3/uL (2.7-7.7); Neutrophil % 57.8 % (47-70); Platelet Count 234 K/mm3 (150-450); RBC Distribution Width CV 13.5 % (11.6-14.6); RBC Distribution Width SD 41.7 fl (35.1-43.9); White Blood Count 7.8 K/mm3 (4.4-11.0)
[2025-04-06] MEDS: Albuterol 2.5 MG/3 ML VIAL.NEB. INHALATION ×2 (15:28→15:37)
--- OUTSIDE RECORDS SUMMARY | 2025-04-06 15:30 | XMS RPT_ITS | CCD ---
Author Organization [facility] Care Team Providers Care Manager Trade Name Role Phone Dr. Geoff Perez Chi Primary Care Provider Dr. Livan Gramajo Attending Provider Dr. Shay Roland Referring Provider [phone] Dr. Geoff Perez Chi Primary Care Provider Chris, Dr. Geoff Gill Referring Provider Dr. Richmond Valdez Attending Provider [phone] Dr. Richmond Valdez Other Provider [phone] Chris GRAY, Dr. Geoff Gill Primary Care Provider Chris GRAY, Dr. Geoff Gill Attending Provider Chris GRAY, Dr. Geoff Gill Referring Provider Chris GRAY, Dr. Geoff Gill Primary Care Provider Chris GRAY, Dr. Geoff Gill Attending Provider Chris, Geoff Chi Attending Unavailable Chris, Geoff Chi Primary Care Unavailable Chris, Geoff Chi Attending Unavailable Chris, Geoff Chi Primary Care Unavailable Chris, Geoff Chi Primary Care Unavailable Chris, Geoff Chi Attending Unavailable Chris, Geoff Chi Referring Unavailable Chris, Geoff Chi Primary Care Unavailable Chris, Geoff Chi Attending Unavailable Chris, Geoff Chi Primary Care Unavailable Chris, Geoff Chi Attending Unavailable Chris, Geoff Chi Primary Care Unavailable Chris, Geoff Chi Attending Unavailable Chris, Geoff Chi Referring Unavailable Chris, Geoff Chi Primary Care Unavailable Chris, Geoff Chi Attending Unavailable Chris, Geoff Chi Referring Unavailable Chris, Geoff Chi Primary Care Unavailable Chris, Geoff Chi Attending Unavailable Chris, Geoff Chi Attending Unavailable Chris, Geoff Chi Primary Care Unavailable Chris, Geoff Chi Referring Unavailable Chris, Geoff Chi Attending Unavailable Chris, Geoff Chi Primary Care Unavailable Chris, Geoff Chi Referring Unavailable Chris, Geoff Chi Primary Care Unavailable Chris, Geoff Chi Attending Unavailable Chris, Geoff Chi Referring Unavailable Chris, Geoff Chi Attending Unavailable Chris, Geoff Chi Referring Unavailable Chris, Geoff Chi Primary Care Unavailable Chris, Geoff Chi Primary Care Unavailable Chris, Geoff Chi Attending Unavailable Chris, Geoff Chi Attending Unavailable Chris, Geoff Chi Primary Care Unavailable Medications Current Medications Medication Drug Class(es) Dates Sig (Normalized) Sig (Original) Budesonide-Formoter ol (18 sources) Corticosteroid, beta2-Adrenergic Agonist Start: 08-07-2015 Budesonide-Formote rol (Symbicort) 1 INHALER inhaler Active 1 INHALER PO DAILY August 06, 2015 11:00pm Start: 08-07-2015 Budesonide-For moterol (Symbicort) 1 INHALER inhaler Active 1 INHALER PO DAILY August 07, 2015 12:00am Start: 08-07-2015 Budesonide-For moterol (Symbicort) 1 INHALER inhaler Active 1 INHALER PO DAILY August 07, 2015 12:00am Multivit With Min-Folic Acid (Multivitamin Gummies) 200 mcg Tablet,Chewable (12 sources) Start: 04-17-2023 take 1 tablet by mouth once daily Multivit With Min-Folic Acid (Multivitamin Gummies) 200 mcg Tablet,Chewable Active 1 {tbl} PO DAILY April 17, 2023 12:00am Start: 04-17-2023 take 1 tablet by christopher th once daily Multivit With Min-Folic Acid (Multivitamin Gummies) 200 mcg Tablet,Chewable Active 1 TABLET PO DAILY April 16, 2023 11:00pm Start: 04-17-2023 take 1 tablet by christopher th once daily Multivit With Min-Folic Acid (Multivitamin Gummies) 200 mcg Tablet,Chewable Active 1 TABLET PO DAILY April 17, 2023 12:00am 24 hr venlafaxine 75 mg extended release oral capsule (18 sources) Serotonin and Norepinephrine Reuptake Inhibitor Start: 08-07-2015 take 1 capsule by mouth once daily Venlafaxine 75 MG capsule,extended release 24hr Active 75 mg PO DAILY August 07, 2015 12:00am Completed/Discontinued Medications Medication Drug Class(es) Dates Sig (Normalized) Sig (Original) acetaminophen 325 mg / oxyCODONE hydrochloride 5 mg oral tablet (18 sources) Opioid Agonist Start: 03-25-2016 End: 03-09-2023 Oxycodone-Acetamino phen 1 TABLET tablet Discontinued 1 - 2 {tbl} PO EVERY 4 HOURS NEEDED as needed for Pain March 25, 2016 12:00am March 09, 2023 9:09am Start: 03-25-2016 End: 03-09-2023 take 1 tablet by mouth every four hours as needed Oxycodone-Acetaminophen Discontinued 1 - 2 TABLET PO EVERY 4 HOURS NEEDED March 24, 2016 11:00pm March 09, 2023 8:09am ibuprofen 800 mg oral tablet (18 sources) Nonsteroidal Anti-inflammatory Drug Start: 03-25-2016 End: 03-09-2023 take 1 tablet by mouth three times daily as needed for pain Ibuprofen (Motrin) 800 MG tablet Discontinued 800 mg PO 3 TIMES DAILY NEEDED as needed for Pain March 25, 2016 5:36pm March 09, 2023 9:09am Problems Active Problems Problem Classification Problem Date Documented Da te Episodic/Chronic Other gastrointestinal disorders (12 sources) Stool DNA-based colorectal cancer screening positive; Translations: [Other fecal abnormalities] 03-09-2023 Episodic Other gastrointestinal disorders (2 sources) Other fecal abnormalities; Translations: [Abnormal feces] 03-09-2023 Episodic Other lower respiratory disease (1 source) Shortness of breath; Translations: [Shortness of breath] Onset: 03-21-2025 Episodic Other lower respiratory disease (2 sources) Other specified respiratory disorders; Translations: [Other specified respiratory disorders] Onset: 01-29-2025 Episodic Residual codes; unclassified (1 source) Chills (without fever); Translations: [Chills (without fever)] Onset: 01-31-2025 Episodic Thyroid disorders (1 source) Hypothyroidism, unspecified; Translations: [Hypothyroidism, unspecified] Onset: 11-06-2024 Chronic Past or Other Problems Problem Classification Problem Date Documented Da te Episodic/Chronic Malaise and fatigue (1 source) Other fatigue; Translations: [Other fatigue] Onset: 12-17-2024 Episodic Results Test Name Value Interpretation Reference Range Facility Absolute lymphocyte countOrd ered By: Geoff Perez on 03-18-2025 Lymphocytes Auto (Unsp spec) [#/Vol] 1.10 10*3/uL 0.83-4.51 [facility] Absolute neutrophil countOrd ered By: Geoff Perez on 03-18-2025 Neutrophils (Bld) [#/Vol] 4.6 10*3/uL 2.0-7.7 [facility] Anion gap in Serum or Plasma Ordered By: Geoff Perez on 03-18-2025 Anion gap [Moles/Vol] 12 mmol/L 03-06 [facility] Automated lymphocyte count a s percentage of total leukocytesOrdered By: Geoff Perez on 03-18-2025 Lymphocytes/100 WBC Auto (Unsp spec) 16.2 % Low 19-41 [facility] BUN/creatinine ratioOrdered By: Geoff Perez on 03-18-2025 Urea nitrogen/Creatinine [Mass ratio] 11.2 mg/mg - [facility] Basic Metabolic Profile (BMP )on 03-18-2025 BUN/CRE 11.2 RATIO Normal 08-11 [facility] Comment on above: Performed By: #### M , #### [facility] [address] [place], [address] Calcium [Mass/Vol] 9.2 mg/dL Normal 7.6-11.0 [facility] Comment on above: Performed By: #### M , #### [facility] [address] [place], [address] Chloride [Moles/Vol] 106 mmol/L Normal 98-108 [facility] Comment on above: Performed By: #### M , #### [facility] [address] [place], [address] CO2 [Moles/Vol] 23.1 mmol/L Normal 21.0-32.0 [facility] Comment on above: Performed By: #### M , #### [facility] [address] [place], [address] Creatinine [Mass/Vol] 0.69 mg/dL Low 0.70-1.20 [facility] Comment on above: Performed By: #### M , #### [facility] [address] [place], [address] GAP 12 Normal 5-15 [facility] Comment on above: Performed By: #### M , #### [facility] [address] [place], [address] GFR/1.73 sq M.predicted among non-blacks MDRD (S/P/Bld) [Vol rate/Area] 94 mL/min/{1.73_m2} Normal >60 [facility] Comment on above: Result Comment: mL/m in/1.73m2 CKD-EPI Creatinine Equation (2020) Performed By: #### M , #### [facility] [address] [place], [address] Glucose [Mass/Vol] 101 mg/dL High 70-99 [facility] Comment on above: Performed By: #### M , #### [facility] [address] [place], [address] Potassium [Moles/Vol] 4.1 mmol/L Normal 3.3-5.1 [facility] Comment on above: Performed By: #### M , #### [facility] [address] [place], [address] Sodium [Moles/Vol] 141 mmol/L Normal 133-145 [facility] Comment on above: Performed By: #### M , #### [facility] [address] [place], [address] Urea nitrogen [Mass/Vol] 8 mg/dL Normal 4-19 [facility] Comment on above: Performed By: #### M , #### [facility] [address] [place], [address] Basophil percentageOrdered B y: Geoff Perez on 03-18-2025 Basophils/100 WBC (Bld) 0.7 % 0-1 [facility] CBC W/Diff, Automatedon 02-21 Absolute Lymph 1.10 X10 3/uL Normal 0.83-4.51 [facility] Comment on above: Performed By: #### M , #### [facility] [address] [place], [address] Absolute Neut 4.6 X10 3/uL Normal 2.0-7.7 [facility] Comment on above: Performed By: #### M , #### [facility] [address] [place], [address] Basophils/100 WBC (Bld) 0.7 % Normal 0-1 [facility] Comment on above: Performed By: #### M , #### [facility] [address] [place], [address] Eosinophils/100 WBC (Bld) 5.0 % Normal 0-5 [facility] Comment on above: Performed By: #### M , #### [facility] [address] [place], [address] Erythrocyte distribution width (RBC) [Ratio] 13.4 % Normal 11.6-14.6 [facility] Comment on above: Performed By: #### M , #### [facility] [address] [place], [address] Hematocrit (Bld) [Volume fraction] 43.7 % Normal 37-47 [facility] Comment on above: Performed By: #### M , #### [facility] [address] [place], [address] Hemoglobin (Bld) [Mass/Vol] 14.8 g/dL Normal 12.0-15.0 [facility] Comment on above: Performed By: #### M , #### [facility] [address] [place], [address] IG% 0.300 Normal 0.0-0.9 [facility] Comment on above: Result Comment: IG% - Immature Granulocytes (promyelocytes, myelocytes and metamyelocytes) > 1% indicates that a LEFT SHIFT is Present. Performed By: #### M , #### [facility] [address] [place], [address] Lymphocytes/100 WBC (Bld) 16.2 % Low 19-41 [facility] Comment on above: Performed By: #### M , #### [facility] [address] [place], [address] MCH (RBC) [Entitic mass] 29.0 pg Normal 27.0-32.0 [facility] Comment on above: Performed By: #### M , #### [facility] [address] [place], [address] MCHC (RBC) [Mass/Vol] 33.9 g/dL Normal 32-36 [facility] Comment on above: Performed By: #### M , #### [facility] [address] [place], [address] MCV (RBC) [Entitic vol] 85.5 fL Normal 81-99 [facility] Comment on above: Performed By: #### M , #### [facility] [address] [place], [address] Monocytes/100 WBC (Bld) 9.9 % Normal 0-10 [facility] Comment on above: Performed By: #### M , #### [facility] [address] [place], [address] Neutrophils/100 WBC (Bld) 67.9 % Normal 47-70 [facility] Comment on above: Performed By: #### M , #### [facility] [address] [place], [address] Nucleated RBC (Bld) [#/Vol] 0 10*3/uL Normal 0-5 [facility] Comment on above: Performed By: #### M , #### [facility] [address] [place], [address] Platelet mean volume (Bld) [Entitic vol] 8.5 fL Normal 6.2-12.0 [facility] Comment on above: Performed By: #### M , #### [facility] [address] [place], [address] Platelets (Bld) [#/Vol] 243 10*3/uL Normal 150-450 [facility] Comment on above: Performed By: #### M , #### [facility] [address] [place], [address] RBC (Bld) [#/Vol] 5.11 10*6/uL Normal 4.2-5.4 [facility] Comment on above: Performed By: #### M , #### [facility] [address] [place], [address] RDW SD 41.7 fl Normal 35.1-43.9 [facility] Comment on above: Performed By: #### M 100, M100.2400 #### [facility] [address] [place], [address] WBC (Bld) [#/Vol] 6.8 10*3/uL Normal 4.4-11.0 [facility] Comment on above: Performed By: #### M 100.1999, M100.2400 #### [facility] [address] [place], [address] Carbon dioxide, total [Moles /volume] in Central venous bloodOrdered By: Geoff Perez on 03-18-2025 CO2 [Moles/Vol] 23.1 mmol/L 21.0-32.0 [facility] Chest PA and Lateralon 03-18 Chest PA and Lateral [facility] Services [address] [place] [address] Chest PA and Lateral MR#: [id number] Acct: [id number] Name: CHRIS LARSEN Rep #: [id number] : 1955 F 70 From: Livan Ashraf MD PCP: Dr. Geoff Perez MD Status: REG CLI Study: Chest PA and Lateral Date of Exam: 03/18/25 Exam# [id number] Ordering Dr: Geoff Perez MD PROCEDURE: CHEST PA AND LATERAL 03/18/2025 REASON FOR EXAM: SOB TECHNIQUE: Frontal and lateral views of the chest. COMPARISON: 06/07/2023 FINDINGS: The lungs appear clear. The cardiac and mediastinal contours appear within limits. Old appearing right-sided rib fracture deformities. Upper lumbar compression deformity again noted. RAD/Chest PA and Lateral IMPRESSION: No evidence of acute disease. Reading Location: [facility] CC: Dr. Geoff Perez MD Greens Keeper: Signed Normal [facility] Chloride assayOrdered By: Gume Perez on 03-18-2025 Chloride [Moles/Vol] 106 mmol/L 98-108 [facility] D-Dimer Quantitative (DVT/PE )on 03-18-2025 D-DIMER QUANT 0.38 FEU/ug/m Normal 0.27-0.49 [facility] Comment on above: Result Comment: NORM AL D-Dimer level (<0.50) indicates no DVT or PE. Performed By: #### M 100.2000, M100.2400 #### [facility] [address] [place], [address] Eosinophil percentageOrdered By: Geoff Perez on 03-18-2025 Eosinophils/100 WBC (Bld) 5.0 % 0-5 [facility] Erythrocyte distribution wid th ratioOrdered By: [facility] on 03-18-2025 Erythrocyte distribution width (RBC) [Ratio] 13.4 % 11.6-14.6 [facility] Erythrocyte distribution wid th standard deviationOrdered By: [facility] on 03-18-2025 Erythrocyte distribution width (RBC) [Ratio] 41.7 fl 35.1-43.9 [facility] Glomerular filtration rate ( GFR) estimation/1.73 sq m using serum, plasma, or whole bOrdered By: [facility] on 03-18-2025 GFR/1.73 sq M.predicted among non-blacks MDRD (S/P/Bld) [Vol rate/Area] 94 mL/min/{1.73_m2} >60 [facility] Comment on above: mL/min/1.73m2 CKD-EP I Creatinine Equation (2020) Hematocrit Auto (Bld) [Volum e fraction]Ordered By: Geoff Perez on 03-18-2025 Hematocrit (Bld) [Volume fraction] 43.7 % 37-47 [facility] Hemoglobin measurementOrdere d By: Geoff Chris on 03-18-2025 Hemoglobin (Bld) [Mass/Vol] 14.8 g/dL 12.0-15.0 [facility] Immature granulocytes/100 WB C Auto (Bld)Ordered By: Geoff Perez on 03-18-2025 Immature granulocytes/100 WBC (Bld) 0.300 % 0.0-0.9 [facility] Comment on above: IG% - Immature Granu locytes (promyelocytes, myelocytes and metamyelocytes) > 1% indicates that a LEFT SHIFT is Present. Influenza virus A and B and SARS-CoV-2 (COVID-19) and Respiratory syncytial virus RNAOrdered By: Geoff Perez on 03-18-2025 SARS-CoV-2 (COVID-19) RNA MAVERICK+probe Ql (Unsp spec) [facility] M100.678on 03-18-2025 M100.678 Pending SARS-CoV-2 (COVID 19) Negative INFLUENZA A Negative INFLUENZA B Negative RSV PCR Negative Normal [facility] Comment on above: Performed By: #### M 100.678 #### [facility] [address] [place] [address]. [place], [address] MCV (mean corpuscular volume ) determinationOrdered By: Geoff Perez on 03-18-2025 MCV (RBC) [Entitic vol] 85.5 fL 81-99 [facility] Mean corpuscular hemoglobin (MCH) determinationOrdered By: Geoff Perez on 03-18-2025 MCH (RBC) [Entitic mass] 29.0 pg 27.0-32.0 [facility] Mean corpuscular hemoglobin concentration (MCHC) determinationOrdered By: Geoff Perez on 03-18-2025 MCHC (RBC) [Mass/Vol] 33.9 g/dL 32-36 [facility] Mean platelet volume determi nationOrdered By: Geoff Perez on 03-18-2025 Platelet mean volume (Bld) [Entitic vol] 8.5 fL 6.2-12.0 [facility] Monocyte percentageOrdered B y: Geoff Perez on 03-18-2025 Monocytes/100 WBC (Bld) 9.9 % 0-10 [facility] Neutrophil percentageOrdered By: Geoff Perez on 03-18-2025 Neutrophils/100 WBC (Bld) 67.9 % 47-70 [facility] Nucleated red blood cell per centageOrdered By: Geoff ePrez on 03-18-2025 Nucleated RBC/100 WBC (Bld) [Ratio] 0 % 0-5 [facility] Platelet countOrdered By: Gume Perez on 03-18-2025 Platelets (Bld) [#/Vol] 243 10*3/uL 150-450 [facility] Potassium measurement (mass/ volume)Ordered By: Geoff Perez on 03-18-2025 Potassium (Unsp spec) [Mass/Vol] 4.1 mmol/L 3.3-5.1 [facility] RBC Auto (Bld) [#/Vol]Ordere d By: Geoff Perez on 03-18-2025 RBC (Bld) [#/Vol] 5.11 10*6/uL 4.2-5.4 [facility] Serum creatinine measurement (mass/volume)Ordered By: Geoff Perez on 03-18-2025 Creatinine [Mass/Vol] 0.69 mg/dL Low 0.70-1.20 [facility] Serum glucose measurement (m ass/volume)Ordered By: Geoff Perez on 03-18-2025 Glucose [Mass/Vol] 101 mg/dL High 70-99 [facility] Serum or plasma calcium manoj urement (mass/volume)Ordered By: Geoff Perez on 03-18-2025 Calcium [Mass/Vol] 9.2 mg/dL 7.6-11.0 [facility] Serum or plasma urea nitroge n measurement (mass/volume)Ordered By: Geoff Perez on 03-18-2025 Urea nitrogen [Mass/Vol] 8 mg/dL 4-19 [facility] Sodium levelOrdered By: Geoff Perez on 03-18-2025 Sodium [Moles/Vol] 141 mmol/L 133-145 [facility] White blood cell (WBC) count Ordered By: Geoff Perez on 03-18-2025 WBC (Bld) [#/Vol] 6.8 10*3/uL 4.4-11.0 [facility] Influenza virus A and B and SARS-CoV-2 (COVID-19) and Respiratory syncytial virus RNAOrdered By: Geoff Perez on 02-21-2025 SARS-CoV-2 (COVID-19) RNA MAVERICK+probe Ql (Unsp spec) [facility] M100.678on 02-21-2025 M100.678 Pending SARS-CoV-2 (COVID 19) Negative INFLUENZA A Negative INFLUENZA B Negative RSV PCR Negative Normal [facility] Comment on above: Performed By: #### M 100.2000, M100.2400 #### [facility] [address] [place], [address] Respiratory Cultureon 2024 RESPC GRAM STAIN Mixed normal respiratory nikolas. No Streptococcus pneumoniae, beta-hemolytic Streptococcus or Staphylococcus aureus isolated. Normal [facility] Comment on above: Performed By: #### M 100.1999, M1.2400 #### [facility] [address] [place], [address] Gram Stainon 01-31-2025 GS GRAM STAIN Acceptable Specimen? Yes (<25 Epithelial cells per/lpf) Gram Stain 1+ Gram positive cocci 1+ Epithelial cells 1+ White Blood Cells Normal [facility] Comment on above: Performed By: #### M 100.1999, .0 #### [facility] [address] [place], [address] Gram stainOrdered By: Geoff asif on 01-31-2025 Microscopic observation Gram stain Nom (Unsp spec) [facility] Microbial respiratory cultur eOrdered By: Geoff Perez on 01-31-2025 Microorganism identified Cx Nom (Unsp spec) or Staphylococcus aureus isolated. [facility] Influenza virus A and B and SARS-CoV-2 (COVID-19) and Respiratory syncytial virus RNAOrdered By: Geoff Perez on 01-28-2025 SARS-CoV-2 (COVID-19) RNA MAVERICK+probe Ql (Unsp spec) [facility] M100.678on 01-28-2025 M100.678 Pending SARS-CoV-2 (COVID 19) Negative INFLUENZA A Negative INFLUENZA B Negative RSV PCR Negative Normal [facility] Comment on above: Performed By: #### M 100.678 #### [facility] [address] [place], [address] M8200.1000on 01-28-2025 M8200.1000 Normal Reference Ran ge = Negative MRSA DNA Nose Ql MAVERICK+probe GeneXpert Instrument, PCR method MRSA PCR MRSA NEGATIVE Normal [facility] Comment on above: Performed By: #### M 100.1999, M100.2400 #### [facility] [address] [facility] [place], [place], [id number] MRSA DNA MAVERICK+probe Ql (Nose) Ordered By: Geoff Perez on 01-28-2025 MRSA (PCR) [facility] Nasal methicillin resistant Staphylococcus aureus (MRSA) DNA detection by PCROrdered By: Geoff Perez on 01-28-2025 MRSA DNA MAVERICK+probe Ql (Nose) [facility] CTA Chest W/WO Contraston CTA Chest W/WO Contrast [facility] Imaging Services [address] [place] [address] CTA Chest W/WO Contrast MR#: [id number] Acct: [id number] Name: CHRIS LARSEN Rep #: [id number] : 1955 F 69 From: Glen Hyde MD PCP: Dr. Geoff Perez MD Status: REG CLI Study: CTA Chest W/WO Contrast Date of Exam: 01/07/25 Exam# [id number] Ordering Dr: Geoff Perez MD EXAM: CT Angiography Chest Without and With Intravenous Contrast CLINICAL INDICATION: SOB, ELEVATED D-DIMER TECHNIQUE: Axial computed tomographic angiography images of the chest without and with intravenous contrast. This CT exam was performed using one or more of the following dose reduction techniques: automated exposure control, adjustment of the mA and/or kV according to patient size, and/or use of iterative reconstruction technique. MIP reconstructed images were created and reviewed. COMPARISON: No relevant prior studies available. FINDINGS: LIMITATIONS: Suboptimal opacification of the pulmonary arteries. PULMONARY ARTERIES: No pulmonary embolism is identified. Some of the distal pulmonary arteries cannot be evaluated due to suboptimal opacification. AORTA: No acute findings. No thoracic aortic aneurysm. LUNGS AND PLEURAL SPACES: Lung emphysema. Lingular atelectasis or scarring. No mass. No significant effusion. No pneumothorax. HEART: Unremarkable. No cardiomegaly. No significant pericardial effusion. No evidence of RV dysfunction. BONES/JOINTS: No acute fracture. No dislocation. SOFT TISSUES: Unremarkable. LYMPH NODES: Unremarkable. No enlarged lymph nodes. CT/CTA Chest W/WO Contrast IMPRESSION: No pulmonary embolism is identified. Some of the distal pulmonary arteries cannot be evaluated due to suboptimal opacification. Reading Location: [facility] CC: Dr. Geoff Perez MD Greens Keeper: Signed Normal [facility] D-Dimer Quantitative (DVT/PE )on 01-06-2025 D-DIMER QUANT 0.50 FEU/ug/m High 0.27-0.49 [facility] Comment on above: Order Comment: CRITI REBEKAH VALUE CALLED TO JYOTI GARCIA01/06/25 1606 Silvana Giron.RESULTS READ BACK BY SAME. Result Comment: D-Di salma ELEVATED (>0.49): Additional studies and clinical assessments are indicated to conclude diagnosis of: Deep Vein Thrombosis (DVT) or Pulmonary Embolism (PE) Performed By: #### M , #### [facility] [address] [facility] [place], [address] D-dimer measurement for deep venous thrombosisOrdered By: Geoff Perez on 01-06-2025 D-Dimer Quantitative (PE/DVT) 0.50 FEU/ug/m High 0.27-0.49 [facility] Comment on above: D-Dimer ELEVATED (>0 .49): Additional studies and clinicalassessments are indicated to conclude diagnosis of:Deep Vein Thrombosis (DVT) or Pulmonary Embolism (PE) Influenza virus A and B and SARS-CoV-2 (COVID-19) and Respiratory syncytial virus RNAOrdered By: Geoff Perez on 01-06-2025 SARS-CoV-2 (COVID-19) RNA MAVERICK+probe Ql (Unsp spec) [facility] M100.678on 01-06-2025 M100.678 Pending SARS-CoV-2 (COVID 19) Negative INFLUENZA A Negative INFLUENZA B Negative RSV PCR Negative Normal [facility] Comment on above: Performed By: #### M , #### [facility] [address] [place], [place], [id number] Influenza virus A and B and SARS-CoV-2 (COVID-19) and Respiratory syncytial virus RNAOrdered By: Geoff Perez on 12-17-2024 SARS-CoV-2 (COVID-19) RNA MAVERICK+probe Ql (Unsp spec) [facility] M100.678on 12-17-2024 M100.678 SARS-CoV-2 (COVID 19 ) Negative INFLUENZA A Negative INFLUENZA B Negative RSV PCR Negative Normal [facility] Comment on above: Performed By: #### M 100.2000, M100.2400 #### [facility] [place], [address] 30-SD-Dnjxmhv DOrdered By: Zan Perez on 12-03-2024 Vitamin D 25-Hydroxy 30.5 ng/mL [facility] Comment on above: Vitamin D 25(OH) Sta tus Range Deficiency <20 ng/mL (50nmol/L) Insufficiency 20 - 30 ng/mL (50 - 75 nmol/L) Sufficiency 30 - 100 ng/mL (75 - 250 nmol/L) Toxicity >100 ng/mL (>250 nmol/L) Absolute lymphocyte countOrd ered By: Geoff Perez on 12-03-2024 Lymphocytes Auto (Unsp spec) [#/Vol] 1.63 10*3/uL 0.83-4.51 [facility] Absolute neutrophil countOrd ered By: Geoff Perez on 12-03-2024 Neutrophils (Bld) [#/Vol] 5.7 10*3/uL 2.0-7.7 [facility] Albumin to globulin ratioOrd ered By: Geoff Perez on 12-03-2024 Albumin/Globulin [Mass ratio] 1.1 {ratio} 0.9-2.4 [facility] Automated lymphocyte count a s percentage of total leukocytesOrdered By: Geoff Perez on 12-03-2024 Lymphocytes/100 WBC Auto (Unsp spec) 19.6 % 19-41 [facility] Basophil percentageOrdered B y: Geoff Perez on 12-03-2024 Basophils/100 WBC (Bld) 0.4 % 0-1 [facility] Bilirubin, totalOrdered By: Geoff Perez on 12-03-2024 Bilirubin [Mass/Vol] 0.60 mg/dL 0.20-1.00 [facility] Comment on above: For patients on eltr ombopag therapy, use of Dimension [place] TBIL is not recommended. Blood urea nitrogen (BUN)/cr eatinine ratioOrdered By: Geoff Perez on 12-03-2024 Urea nitrogen/Creatinine [Mass ratio] 16.7 mg/mg 10-20 [facility] CBC W/Diff, Automatedon 11-23 Absolute Lymph 1.63 X10 3/uL Normal 0.83-4.51 [facility] Comment on above: Performed By: #### M 100.678 #### [facility] [address] [place], [address] Absolute Neut 5.7 X10 3/uL Normal 2.0-7.7 [facility] Comment on above: Performed By: #### M 100.678 #### [facility] [address] [place], [address] Basophils/100 WBC (Bld) 0.4 % Normal 0-1 [facility] Comment on above: Performed By: #### M 100.678 #### [facility] [address] [place], [address] Eosinophils/100 WBC (Bld) 2.4 % Normal 0-5 [facility] Comment on above: Performed By: #### M 100.678 #### [facility] [address] [place], [address] Erythrocyte distribution width (RBC) [Ratio] 13.1 % Normal 11.6-14.6 [facility] Comment on above: Performed By: #### M 100.678 #### [facility] [address] [place], [address] Hematocrit (Bld) [Volume fraction] 43.7 % Normal 37-47 [facility] Comment on above: Performed By: #### M 100.678 #### [facility] [address] [place], [address] Hemoglobin (Bld) [Mass/Vol] 14.3 g/dL Normal 12.0-15.0 [facility] Comment on above: Performed By: #### M 100.678 #### [facility] [address] [place], [address] IG% 0.200 Normal 0.0-0.9 [facility] Comment on above: Result Comment: IG% - Immature Granulocytes (promyelocytes, myelocytes and metamyelocytes) > 1% indicates that a LEFT SHIFT is Present. Performed By: #### M 100.678 #### [facility] [address] [place], [address] Lymphocytes/100 WBC (Bld) 19.6 % Normal 19-41 [facility] Comment on above: Performed By: #### M 100.678 #### [facility] [address] [place], [address] MCH (RBC) [Entitic mass] 28.5 pg Normal 27.0-32.0 [facility] Comment on above: Performed By: #### M 100.678 #### [facility] [address] [place], [address] MCHC (RBC) [Mass/Vol] 32.7 g/dL Normal 32-36 [facility] Comment on above: Performed By: #### M 100.678 #### [facility] [address] [place], [address] MCV (RBC) [Entitic vol] 87.1 fL Normal 81-99 [facility] Comment on above: Performed By: #### M 100.678 #### [facility] [address] [place], [address] Monocytes/100 WBC (Bld) 9.0 % Normal 0-10 [facility] Comment on above: Performed By: #### M 100.678 #### [facility] [address] [place], [address] Neutrophils/100 WBC (Bld) 68.4 % Normal 47-70 [facility] Comment on above: Performed By: #### M 100.678 #### [facility] [address] [place], [address] Nucleated RBC (Bld) [#/Vol] 0 10*3/uL Normal 0-5 [facility] Comment on above: Performed By: #### M 100.678 #### [facility] [address] [place], [address] Platelet mean volume (Bld) [Entitic vol] 8.6 fL Normal 6.2-12.0 [facility] Comment on above: Performed By: #### M 100.678 #### [facility] [address] [place], [address] Platelets (Bld) [#/Vol] 278 10*3/uL Normal 150-450 [facility] Comment on above: Performed By: #### M 100.678 #### [facility] [address] [place], [address] RBC (Bld) [#/Vol] 5.02 10*6/uL Normal 4.2-5.4 [facility] Comment on above: Performed By: #### M 100.678 #### [facility] [address] [place], [address] RDW SD 41.1 fl Normal 35.1-43.9 [facility] Comment on above: Performed By: #### M 100.678 #### [facility] [address] [place], [address] WBC (Bld) [#/Vol] 8.3 10*3/uL Normal 4.4-11.0 [facility] Comment on above: Performed By: #### M 100.678 #### [facility] [address] [place], [address] Carbon dioxide measurementOr dered By: Geoff Perez on 12-03-2024 CO2 [Moles/Vol] 24.0 mmol/L 21.0-32.0 [facility] Chloride measurementOrdered By: Geoff Perez on 12-03-2024 Chloride [Moles/Vol] 107 mmol/L 98-107 [facility] Comprehensive Metabolic Prof ilon 12-03-2024 Albumin [Mass/Vol] 3.6 g/dL Normal 3.2-5.0 [facility] Comment on above: Performed By: #### M , #### [facility] [address] [place], [address] Albumin/Globulin [Mass ratio] 1.1 {ratio} Normal 0.9-2.4 [facility] Comment on above: Performed By: #### M , #### [facility] [address] [place], [address] ALK P 92 U/L Normal 45-117 [facility] Comment on above: Performed By: #### M , #### [facility] [address] [place], [address] ALT [Catalytic activity/Vol] 20 U/L Normal 13-56 [facility] Comment on above: Performed By: #### M , #### [facility] [address] [place], [address] AST [Catalytic activity/Vol] 22 U/L Normal 15-37 [facility] Comment on above: Performed By: #### M , #### [facility] [address] [place], [address] Bilirubin [Mass/Vol] 0.60 mg/dL Normal 0.20-1.00 [facility] Comment on above: Result Comment: For patients on eltrombopag therapy, use of Dimension [place] TBIL is not recommended. Performed By: #### M , #### [facility] [address] [place], [address] BUN/CRE 16.7 RATIO Normal 10-20 [facility] Comment on above: Performed By: #### M , #### [facility] [address] [place], [address] CA,Total 8.6 mg/dL Normal 8.5-10.1 [facility] Comment on above: Performed By: #### M , #### [facility] [address] [place], [address] Chloride [Moles/Vol] 107 mmol/L Normal 98-107 [facility] Comment on above: Performed By: #### M , #### [facility] [address] [place], [address] CO2 [Moles/Vol] 24.0 mmol/L Normal 21.0-32.0 [facility] Comment on above: Performed By: #### M , #### [facility] [address] [place], [address] Creatinine [Mass/Vol] 0.72 mg/dL Normal 0.55-1.02 [facility] Comment on above: Result Comment: The validity of the calculated GFR GFRAA in patients over 70 years has not been determined. Clinical correlation is essential. Performed By: #### M , #### [facility] [address] [place], [address] EST GFR - AA 104 mL/min Normal >60 [facility] Comment on above: Result Comment: Afri can Haitian GFR Calc Performed By: #### M , #### [facility] [address] [place], [address] GAP 8 Normal 5-15 [facility] Comment on above: Performed By: #### M , #### [facility] [address] [place], [address] GFR/1.73 sq M.predicted among non-blacks MDRD (S/P/Bld) [Vol rate/Area] 86 mL/min/{1.73_m2} Normal >60 [facility] Comment on above: Result Comment: Non- GFR Calc Performed By: #### , #### [facility] [address] [place], [address] Globulin (S) [Mass/Vol] 3.4 g/dL Normal 2.2-4.2 [facility] Comment on above: Performed By: #### M , #### [facility] [address] [place], [address] Glucose [Mass/Vol] 89 mg/dL Normal 74-106 [facility] Comment on above: Performed By: #### M , #### [facility] [address] [place], [address] Potassium [Moles/Vol] 4.1 mmol/L Normal 3.5-5.1 [facility] Comment on above: Performed By: #### M , #### [facility] [address] [place], [address] Sodium [Moles/Vol] 138 mmol/L Normal 136-145 [facility] Comment on above: Performed By: #### M , #### [facility] [address] [place], [address] T PROT 7.0 g/dL Normal 6.4-8.2 [facility] Comment on above: Performed By: #### M .1999, M1.2400 #### [facility] [address] [place], [place], [address] Urea nitrogen [Mass/Vol] 12 mg/dL Normal 7-18 [facility] Comment on above: Performed By: #### M 100.1999, M1.2400 #### [facility] [address] [place], [address] Eosinophil percentageOrdered By: Geoff Perez on 12-03-2024 Eosinophils/100 WBC (Bld) 2.4 % 0-5 [facility] Erythrocyte distribution wid th ratioOrdered By: Geoff Perez on 12-03-2024 Erythrocyte distribution width (RBC) [Ratio] 13.1 % 11.6-14.6 [facility] Erythrocyte distribution wid th standard deviationOrdered By: Geoff Perez on 12-03-2024 Erythrocyte distribution width (RBC) [Entitic vol] 41.1 fL 35.1-43.9 [facility] Erythrocyte distribution width (RBC) [Ratio] 41.1 fl 35.1-43.9 [facility] Estimated glomerular filtrat ion rate (GFR) AmericanOrdered By: Geoff Perez on 12-03-2024 Estimated GFR (MDRD) Amer 104 mL/min >60 [facility] Comment on above: GFR Calc Glomerular filtration rate ( GFR) estimationOrdered By: Geoff Perez on 12-03-2024 Estimated GFR (MDRD) Non-Af Amer 86 mL/min >60 [facility] Comment on above: Non- GFR Calc GFR/1.73 sq M.predicted among non-blacks MDRD (S/P/Bld) [Vol rate/Area] 86 mL/min/{1.73_m2} >60 [facility] Comment on above: Non- GFR Calc Glucose measurementOrdered B y: Geoff Perez on 12-03-2024 Glucose [Mass/Vol] 89 mg/dL 74-106 [facility] Hematocrit Auto (Bld) [Volum e fraction]Ordered By: Geoff Perez on 12-03-2024 Hematocrit (Bld) [Volume fraction] 43.7 % 37-47 [facility] Hemoglobin measurementOrdere d By: Geoff Perez on 12-03-2024 Hemoglobin (Bld) [Mass/Vol] 14.3 g/dL 12.0-15.0 [facility] High density lipoprotein (HD L) measurementOrdered By: Geoff Perez on 12-03-2024 Cholesterol in HDL [Mass/Vol] 68 mg/dL >40 [facility] Comment on above: The drugs N-Acetylcy steine and Metamizole may falsely depress this assay. Reference Range HDL <40 mg/dL Low HDL Cholesterol HDL >or= 60 mg/dL High HDL Cholesterol Immature granulocytes/100 WB C Auto (Bld)Ordered By: Geoff Perez on 12-03-2024 Immature granulocytes/100 WBC (Bld) 0.200 % 0.0-0.9 [facility] Comment on above: IG% - Immature Granu locytes (promyelocytes, myelocytes and metamyelocytes) > 1% indicates that a LEFT SHIFT is Present. Laboratory - Chemistry and C hemistry - challengeOrdered By: Geoff Perez on 12-03-2024 AST [Catalytic activity/Vol] 22 U/L 15-37 [facility] Lipid Profileon 12-03-2024 Cholesterol [Mass/Vol] 199 mg/dL Normal 200 [facility] Comment on above: Result Comment: <200 mg/dL Desirable 200-240 mg/dL Borderline >240 mg/dL High Risk Performed By: #### M , #### [facility] [address] [place], [place], [address] Cholesterol in HDL [Mass/Vol] 68 mg/dL Normal [facility] Comment on above: Result Comment: The drugs N-Acetylcysteine and Metamizole may falsely depress this assay. Reference Range HDL <40 mg/dL Low HDL Cholesterol HDL >or= 60 mg/dL High HDL Cholesterol Performed By: #### M , #### [facility] [address] [place], [address] Cholesterol in LDL [Mass/Vol] 107 mg/dL Normal 0-130 [facility] Comment on above: Performed By: #### M , #### [facility] [address] [place], [address] Cholesterol in VLDL [Mass/Vol] 24 mg/dL Normal 5-40 [facility] Comment on above: Performed By: #### M , #### [facility] [address] [place], [address] Triglyceride [Mass/Vol] 122 mg/dL Normal [facility] Comment on above: Result Comment: The drugs N-Acetylcysteine and Metamizole may falsely depress this assay. Serum Triglycerides Reference Interval Normal <150 mg/dL Borderline high 150 - 199 mg/dL High 200 - 499 mg/dL Very High > or = 500 mg/dL Performed By: #### M , #### [facility] [address] [place], [address] Low density lipoprotein (LDL ) cholesterol measurementOrdered By: Geoff Perez on 12-03-2024 Cholesterol in LDL [Mass/Vol] 107 mg/dL 0-130 [facility] Lymphocytes Auto (Unsp spec) [#/Vol]Ordered By: Geoff Perez on 12-03-2024 Lymphocytes (Bld) [#/Vol] 1.63 10*3/uL 0.83-4.51 [facility] Lymphocytes/100 WBC Auto (Un sp spec)Ordered By: Geoff Perez on 12-03-2024 Lymphocytes/100 WBC (Bld) 19.6 % 19-41 [facility] MCV (mean corpuscular volume ) determinationOrdered By: Geoff Perez on 12-03-2024 MCV (RBC) [Entitic vol] 87.1 fL 81-99 [facility] Mean corpuscular hemoglobin (MCH) determinationOrdered By: Geoff Perez on 12-03-2024 MCH (RBC) [Entitic mass] 28.5 pg 27.0-32.0 [facility] Mean corpuscular hemoglobin concentration (MCHC) determinationOrdered By: Geoff Perez on 12-03-2024 MCHC (RBC) [Mass/Vol] 32.7 g/dL 32-36 [facility] Mean platelet volume determi nationOrdered By: Geoff Perez on 12-03-2024 Platelet mean volume (Bld) [Entitic vol] 8.6 fL 6.2-12.0 [facility] Monocyte percentageOrdered B y: Geoff Perez on 12-03-2024 Monocytes/100 WBC (Bld) 9.0 % 0-10 [facility] Neutrophil percentageOrdered By: Geoff Perez on 12-03-2024 Neutrophils/100 WBC (Bld) 68.4 % 47-70 [facility] Nucleated red blood cell per centageOrdered By: Geoff Perez on 12-03-2024 Nucleated RBC/100 WBC (Bld) [Ratio] 0 % 0-5 [facility] Platelet countOrdered By: Gume Perez on 12-03-2024 Platelets (Bld) [#/Vol] 278 10*3/uL 150-450 [facility] Potassium measurementOrdered By: Geoff Perez on 12-03-2024 Potassium [Moles/Vol] 4.1 mmol/L 3.5-5.1 [facility] RBC Auto (Bld) [#/Vol]Ordere d By: Geoff Perez on 12-03-2024 RBC (Bld) [#/Vol] 5.02 10*6/uL 4.2-5.4 [facility] Serum anion gap measurementO rdered By: Geoff Perez on 12-03-2024 Anion gap [Moles/Vol] 8 mmol/L 5-15 [facility] Serum globulin measurementOr dered By: Geoff Perez 12-03-2024 Globulin (S) [Mass/Vol] 3.4 g/dL 2.2-4.2 [facility] Serum or plasma alanine mcbride otransferase (ALT) measurementOrdered By: Geoff Perez 12-03-2024 ALT [Catalytic activity/Vol] 20 U/L 13-56 [facility] Serum or plasma albumin manoj urement (mass/volume)Ordered By: Geoff Perez on 12-03-2024 Albumin [Mass/Vol] 3.6 g/dL 3.2-5.0 [facility] Serum or plasma alkaline bertha sphatase measurementOrdered By: Geoff Perez 12-03-2024 ALP [Catalytic activity/Vol] 92 U/L 45-117 [facility] Serum or plasma calcium manoj urement (mass/volume)Ordered By: Geoff Perez on 12-03-2024 Calcium [Mass/Vol] 8.6 mg/dL 8.5-10.1 [facility] Serum or plasma cholesterol measurement (mass/volume)Ordered By: Geoff Perez on 12-03-2024 Cholesterol [Mass/Vol] 199 mg/dL <200 [facility] Comment on above: <200 mg/dL Desirable 200-240 mg/dL Borderline >240 mg/dL High Risk Serum or plasma creatinine m easurement (mass/volume)Ordered By: Geoff Perez 12-03-2024 Creatinine [Mass/Vol] 0.72 mg/dL 0.55-1.02 [facility] Comment on above: The validity of the calculated GFR & GFRAA in patients over 70 years has not been determined. Clinical correlation is essential. Serum or plasma thyroid stim ulating hormone (TSH) measurement (units/volume)Ordered By: Geoff Perez on 12-03-2024 TSH Qn 2.340 uIU/mL 0.358-3.740 [facility] Serum or plasma urea nitroge n measurement (mass/volume)Ordered By: Geoff Perez 12-03-2024 Urea nitrogen [Mass/Vol] 12 mg/dL 7-18 [facility] Sodium levelOrdered By: Geoff Perez on 12-03-2024 Sodium [Moles/Vol] 138 mmol/L 136-145 [facility] TSH QnOrdered By: Geoff Perez o n 12-03-2024 Thyroid Stimulating Hormone (TSH) 2.340 uIU/mL 0.358-3.740 [facility] Thyroid Stim Hormone (TSH)on 12-03-2024 TSH 2.340 uIU/mL Normal 0.358-3.740 [facility] Comment on above: Performed By: #### M 100.2000, M100.2400 #### [facility] [address] [place], [place], [id number] Total proteinOrdered By: Geoff Perez on 12-03-2024 Protein [Mass/Vol] 7.0 g/dL 6.4-8.2 [facility] Triglycerides measurementOrd ered By: Geoff Perez on 12-03-2024 Triglyceride [Mass/Vol] 122 mg/dL <199 [facility] Comment on above: The drugs N-Acetylcy steine and Metamizole may falsely depress this assay.Serum Triglycerides Reference Interval Normal <150 mg/dL Borderline high 150 - 199 mg/dL High 200 - 499 mg/dL Very High > or = 500 mg/dL Very low density lipoprotein (VLDL) cholesterol measurementOrdered By: Geoff Perez on 12-03-2024 Very low density lipoprotein (VLDL) cholesterol measurement 24 mg/dL 5-40 [facility] VLDL Cholesterol 24 mg/dL 5-40 [facility] Vitamin D,25 Hydroxyon 12-03 Vitamin D 25-OH 30.5 ng/mL Normal [facility] Comment on above: Result Comment: Dianna min D 25(OH) Status Range Deficiency <20 ng/mL (50nmol/L) Insufficiency 20 - 30 ng/mL (50 - 75 nmol/L) Sufficiency 30 - 100 ng/mL (75 - 250 nmol/L) Toxicity >100 ng/mL (>250 nmol/L) Performed By: #### M 100.2000, M100.2400 #### [facility] [address] [place], [place], [address] White blood cell (WBC) count Ordered By: Geoff Perez on 12-03-2024 WBC (Bld) [#/Vol] 8.3 10*3/uL 4.4-11.0 [facility] TSH QnOrdered By: Geoff quintana 10-03-2024 Thyroid Stimulating Hormone (TSH) 3.300 uIU/mL 0.358-3.740 [facility] Thyroid Stim Hormone (TSH)on 10-03-2024 TSH 3.300 uIU/mL Normal 0.358-3.740 [facility] Comment on above: Performed By: #### M 100.678 #### [facility] [address] [place], [address] Immunoglobulins G/A/M/Raffaele IMMUNOGLOB A QN Normal [facility] Comment on above: Order Comment: N Result Comment: WRON G TEST Performed By: #### L 3200.1100 #### [facility] [address] [place], [address] IMMUNOGLOB E QN Normal [facility] Comment on above: Order Comment: N Result Comment: WRON G TEST Performed By: #### L 3200.1100 #### [facility] [address] [place], [address] IMMUNOGLOB G QN Normal [facility] Comment on above: Order Comment: N Result Comment: WRON G TEST Performed By: #### L 3200.1100 #### [facility] [address] [place], [address] IMMUNOGLOB M QN Normal [facility] Comment on above: Order Comment: N Result Comment: WRON G TEST Performed By: #### L 3200.1100 #### [facility] [address] [place], [address] Immunoglobulins G/A/M/Raffaele IMMUNOGLOB A QN 232 mg/dL Normal 87-352 [facility] Comment on above: Order Comment: N Performed By: #### M 100.678 #### [facility] [address] [place], [address] IMMUNOGLOB E QN 32 IU/mL Normal 6-495 [facility] Comment on above: Order Comment: N Result Comment: Perf ormed at: [facility] [address] [id number] Ground Support Agent: Houston Bowden PhD, Phone: [phone] Performed at: [facility] [address] [id number] Ground Support Agent: Micheline Saravia MD, Phone: [phone] Performed By: #### M 100.678 #### [facility] [address], [address] IMMUNOGLOB G QN 682 mg/dL Normal 586-1602 [facility] Comment on above: Order Comment: N Performed By: #### M 100.678 #### [facility] [address] [place], [address] IMMUNOGLOB M QN 83 mg/dL Normal 26-217 [facility] Comment on above: Order Comment: N Performed By: #### M 100.678 #### [facility] [address] [place], [address] M100.678on 08-07-2024 M100.678 Pending SARS-CoV-2 (COVID 19) Negative INFLUENZA A Negative INFLUENZA B Negative RSV PCR Negative Normal [facility] Comment on above: Performed By: #### M 100.678 #### [facility], [address] Thyroid Stim Hormone (TSH)on 08-07-2024 TSH 2.800 uIU/mL Normal 0.358-3.740 [facility] Comment on above: Performed By: #### M 100.678, L3200.1100, L501.9520 #### [facility], [address] Thyroid Stim Hormone (TSH)on 07-24-2024 TSH 4.340 uIU/mL High 0.358-3.740 [facility] Comment on above: Performed By: #### L 501.9520 #### [facility] [address] [place], [address] CBC W/Diff, Automatedon 08-0 Absolute Lymph 1.61 X10 3/uL Normal 0.83-4.51 [facility] Comment on above: Performed By: #### M 100.678 #### [facility] [address] [place], [address] Absolute Neut 6.2 X10 3/uL Normal 2.0-7.7 [facility] Comment on above: Performed By: #### M 100.678 #### [facility] [address] [place], [address] Basophils/100 WBC (Bld) 0.7 % Normal 0-1 [facility] Comment on above: Performed By: #### M 100.678 #### [facility] [address] [place], [address] Eosinophils/100 WBC (Bld) 4.0 % Normal 0-5 [facility] Comment on above: Performed By: #### M 100.678 #### [facility] [address] [place], [address] Erythrocyte distribution width (RBC) [Ratio] 12.8 % Normal 11.6-14.6 [facility] Comment on above: Performed By: #### M [id number] #### [facility] [address] [place], [address] Hematocrit (Bld) [Volume fraction] 45.5 % Normal 37-47 [facility] Comment on above: Performed By: #### M [id number] #### [facility] [address] [place], [address] Hemoglobin (Bld) [Mass/Vol] 15.2 g/dL High 12.0-15.0 [facility] Comment on above: Performed By: #### M [id number] #### [facility] [address] [place], [address] IG% 0.300 Normal 0.0-0.9 [facility] Comment on above: Result Comment: IG% - Immature Granulocytes (promyelocytes, myelocytes and metamyelocytes) > 1% indicates that a LEFT SHIFT is Present. Performed By: #### M [id number] #### [facility] [address] [place], [address] Lymphocytes/100 WBC (Bld) 17.8 % Low 19-41 [facility] Comment on above: Performed By: #### M [id number] #### [facility] [address] [place], [address] MCH (RBC) [Entitic mass] 29.3 pg Normal 27.0-32.0 [facility] Comment on above: Performed By: #### [id number] #### [facility] [address] [place], [address] MCHC (RBC) [Mass/Vol] 33.4 g/dL Normal 32-36 [facility] Comment on above: Performed By: #### M [id number] #### [facility] [address] [place], [address] MCV (RBC) [Entitic vol] 87.7 fL Normal 81-99 [facility] Comment on above: Performed By: #### M [id number] #### [facility] [address] [place], [address] Monocytes/100 WBC (Bld) 8.9 % Normal 0-10 [facility] Comment on above: Performed By: #### M [id number] #### [facility] [address] [place], [address] Neutrophils/100 WBC (Bld) 68.3 % Normal 47-70 [facility] Comment on above: Performed By: #### M [id number] #### [facility] [address] [place], [address] Nucleated RBC (Bld) [#/Vol] 0 10*3/uL Normal 0-5 [facility] Comment on above: Performed By: #### M [id number] #### [facility] [address] [place], [address] Platelet mean volume (Bld) [Entitic vol] 8.8 fL Normal 6.2-12.0 [facility] Comment on above: Performed By: #### M [id number] #### [facility] [address] [place], [address] Platelets (Bld) [#/Vol] 320 10*3/uL Normal 150-450 [facility] Comment on above: Performed By: #### M [id number] #### [facility] [address] [place], [address] RBC (Bld) [#/Vol] 5.19 10*6/uL Normal 4.2-5.4 [facility] Comment on above: Performed By: #### M [id number] #### [facility] [address] [place], [address] RDW SD 41.2 fl Normal 35.1-43.9 [facility] Comment on above: Performed By: #### M [id number] #### [facility] [address] [place], [address] WBC (Bld) [#/Vol] 9.1 10*3/uL Normal 4.4-11.0 [facility] Comment on above: Performed By: #### M [id number] #### [facility] [address] [place], [address] Comprehensive Metabolic Prof [facility] 05-27-2024 Albumin [Mass/Vol] 3.7 g/dL Normal 3.2-5.0 [facility] Comment on above: Performed By: #### M [id number] #### [facility] [address] [place], [address] Albumin/Globulin [Mass ratio] 1.1 {ratio} Normal 0.9-2.4 [facility] Comment on above: Performed By: #### M [id number] #### [facility] [address] [place], [address] ALK P 99 U/L Normal 45-117 [facility] Comment on above: Performed By: #### M [id number] #### [facility] [address] [place], [address] ALT [Catalytic activity/Vol] 19 U/L Normal 13-56 [facility] Comment on above: Performed By: #### M [id number] #### [facility] [address] [place], [address] AST [Catalytic activity/Vol] 28 U/L Normal 15-37 [facility] Comment on above: Performed By: #### M [id number] #### [facility] [address] [place], [address] Bilirubin [Mass/Vol] 0.60 mg/dL Normal 0.20-1.00 [facility] Comment on above: Result Comment: For patients on eltrombopag therapy, use of Dimension [place] TBIL is not recommended. Performed By: #### M [id number] #### [facility] [address] [place], [address] BUN/CRE 14.7 RATIO Normal 10-20 [facility] Comment on above: Performed By: #### M [id number] #### [facility] [address] [place], [address] CA,Total 8.9 mg/dL Normal 8.5-10.1 [facility] Comment on above: Performed By: #### M [id number] #### [facility] [address] [place], [address] Chloride [Moles/Vol] 109 mmol/L High 98-107 [facility] Comment on above: Performed By: #### M [id number] #### [facility] [address] [place], [address] CO2 [Moles/Vol] 26.0 mmol/L Normal 21.0-32.0 [facility] Comment on above: Performed By: #### M [id number] #### [facility] [address] [place], [address] Creatinine [Mass/Vol] 0.82 mg/dL Normal 0.55-1.02 [facility] Comment on above: Result Comment: The validity of the calculated GFR GFRAA in patients over 70 years has not been determined. Clinical correlation is essential. Performed By: #### M [id number] #### [facility] [address] [place], [address] EST GFR - AA 90 mL/min Normal >60 [facility] Comment on above: Result Comment: Afri can Haitian GFR Calc Performed By: #### M [id number] #### [facility] [address] [place], [address] GAP 5 Normal 5-15 [facility] Comment on above: Performed By: #### M [id number] #### [facility] [address] [place], [address] GFR/1.73 sq M.predicted among non-blacks MDRD (S/P/Bld) [Vol rate/Area] 74 mL/min/{1.73_m2} Normal >60 [facility] Comment on above: Result Comment: Non- GFR Calc Performed By: #### M [id number] #### [facility] [address] [place], [address] Globulin (S) [Mass/Vol] 3.5 g/dL Normal 2.2-4.2 [facility] Comment on above: Performed By: #### M [id number] #### [facility] [address] [place], [address] Glucose [Mass/Vol] 125 mg/dL High 74-106 [facility] Comment on above: Result Comment: Fast ing Glucose result from 100 to 125 mg/dL suggests IMPAIRED HOMEOSTASIS per A.D.A. criteria. Performed By: #### M [id number] #### [facility] [address] [place], [address] Potassium [Moles/Vol] 3.6 mmol/L Normal 3.5-5.1 [facility] Comment on above: Performed By: #### M [id number] #### [facility] [address] [place], [address] Sodium [Moles/Vol] 140 mmol/L Normal 136-145 [facility] Comment on above: Performed By: #### M [id number] #### [facility] [address] [place], [address] T PROT 7.2 g/dL Normal 6.4-8.2 [facility] Comment on above: Performed By: #### M [id number] #### [facility] [address] [place], [address] Urea nitrogen [Mass/Vol] 12 mg/dL Normal 7-18 [facility] Comment on above: Performed By: #### M [id number] #### [facility] [address] [place], [address] Lipid Profileon 05-27-2024 Cholesterol [Mass/Vol] 209 mg/dL High 200 [facility] Comment on above: Result Comment: <200 mg/dL Desirable 200-240 mg/dL Borderline >240 mg/dL High Risk Performed By: #### M [id number] #### [facility] [address] [place], [address] Cholesterol in HDL [Mass/Vol] 71 mg/dL Normal [facility] Comment on above: Result Comment: The drugs N-Acetylcysteine and Metamizole may falsely depress this assay. Reference Range HDL <40 mg/dL Low HDL Cholesterol HDL >or= 60 mg/dL High HDL Cholesterol Performed By: #### M [id number] #### [facility] [address] [place], [address] Cholesterol in LDL [Mass/Vol] 110 mg/dL Normal 0-130 [facility] Comment on above: Performed By: #### M [id number] #### [facility] [address] [place], [address] Cholesterol in VLDL [Mass/Vol] 28 mg/dL Normal 5-40 [facility] Comment on above: Performed By: #### M [id number] #### [facility] [address] [place], [address] Triglyceride [Mass/Vol] 142 mg/dL Normal [facility] Comment on above: Result Comment: The drugs N-Acetylcysteine and Metamizole may falsely depress this assay. Serum Triglycerides Reference Interval Normal <150 mg/dL Borderline high 150 - 199 mg/dL High 200 - 499 mg/dL Very High > or = 500 mg/dL Performed By: #### M [id number] #### [facility] [address] [place], [address] [id number] 05-27-2024 M100.678 SARS-CoV-2 (COVID 19 ) Negative INFLUENZA A Negative INFLUENZA B Negative RSV PCR Negative Normal [facility] Comment on above: Performed By: #### M [id number] #### [facility] [address] [place], [address] Thyroid Stim Hormone (TSH)on 05-27-2024 TSH 5.08 uIU/mL High 0.358-3.74 [facility] Comment on above: Performed By: #### M [id number] #### [facility] [address] [place], [address] Vitamin D,25 Hydroxyon 05-27 Vitamin D 25-OH 44.0 ng/mL Normal [facility] Comment on above: Result Comment: Dianna min D 25(OH) Status Range Deficiency <20 ng/mL (50nmol/L) Insufficiency 20 - 30 ng/mL (50 - 75 nmol/L) Sufficiency 30 - 100 ng/mL (75 - 250 nmol/L) Toxicity >100 ng/mL (>250 nmol/L) Performed By: #### M [id number] #### [facility] [address] [place], [place], [address] [id number] 05-02-2024 [id number] SARS-CoV-2 (COVID 19 ) Negative INFLUENZA A Negative INFLUENZA B Negative RSV PCR Negative Normal [facility] Comment on above: Performed By: #### M [id number] #### [facility] [address] [place], [place], [address] Absolute lymphocyte countOrd ered By: Geoff Perez on 11-21-2023 Lymphocytes Auto (Unsp spec) [#/Vol] 1.31 10*3/uL 0.83-4.51 [facility] Automated lymphocyte count a s percentage of total leukocytesOrdered By: Geoff Perez on 11-21-2023 Lymphocytes/100 WBC Auto (Unsp spec) 17.6 % 19-41 [facility] Basophil percentageOrdered B y: Geoff Perez on 11-21-2023 Basophils/100 WBC (Bld) 0.7 % 0-1 [facility] Bilirubin [Mass/Vol] 0.50 mg/dL 0.20-1.00 [facility] Comment on above: For patients on eltr ombopag therapy, use of Dimension [place] TBIL is not recommended. Chloride [Moles/Vol] 110 mmol/L 98-107 [facility] Eosinophils/100 WBC (Bld) 4.2 % 0-5 [facility] Glucose [Mass/Vol] 110 mg/dL 74-106 [facility] Comment on above: Fasting Glucose resu lt from 100 to 125 mg/dL suggests IMPAIRED HOMEOSTASIS per A.D.A. criteria. Hemoglobin (Bld) [Mass/Vol] 14.1 g/dL 12.0-15.0 [facility] Monocytes/100 WBC (Bld) 8.6 % 0-10 [facility] Neutrophils (Bld) [#/Vol] 5.1 10*3/uL 2.0-7.7 [facility] Neutrophils/100 WBC (Bld) 68.6 % 47-70 [facility] Potassium [Moles/Vol] 4.2 mmol/L 3.5-5.1 [facility] Protein [Mass/Vol] 7.0 g/dL 6.4-8.2 [facility] Sodium [Moles/Vol] 142 mmol/L 136-145 [facility] WBC (Bld) [#/Vol] 7.4 10*3/uL 4.4-11.0 [facility] Determination of erythrocyte mean corpuscular volume (MCV)Ordered By: Geoff Perez on 11-21-2023 MCV (RBC) [Entitic vol] 87.6 fL 81-99 [facility] Erythrocyte distribution wid th ratioOrdered By: [facility] on 11-21-2023 Erythrocyte distribution width (RBC) [Ratio] 13.7 % 11.6-14.6 [facility] Erythrocyte distribution wid th standard deviationOrdered By: Geoff Perez on 11-21-2023 Erythrocyte distribution width (RBC) [Entitic vol] 44.1 fL 35.1-43.9 [facility] Hematocrit Auto (Bld) [Volum e fraction]Ordered By: Geoff Perez 11-21-2023 Hematocrit (Bld) [Volume fraction] 42.5 % 37-47 [facility] Immature granulocytes/100 WB C Auto (Bld)Ordered By: Geoff Perez 11-21-2023 Immature granulocytes/100 WBC (Bld) 0.300 % 0.0-0.9 [facility] Comment on above: IG% - Immature Granu locytes (promyelocytes, myelocytes and metamyelocytes) > 1% indicates that a LEFT SHIFT is Present. Laboratory - Chemistry and C hemistry - challengeOrdered By: Geoff Perez on 11-21-2023 Albumin/Globulin [Mass ratio] 1.1 {ratio} 0.9-2.4 [facility] ALP [Catalytic activity/Vol] 107 U/L 45-117 [facility] ALT [Catalytic activity/Vol] 22 U/L 13-56 [facility] CO2 [Moles/Vol] 27.0 mmol/L 21.0-32.0 [facility] Globulin (S) [Mass/Vol] 3.3 g/dL 2.2-4.2 [facility] Urea nitrogen/Creatinine [Mass ratio] 15.6 mg/mg 10-20 [facility] - Hematology and Cell countsOrdered By: Geoff Perez on 11-21-2023 MCH (RBC) [Entitic mass] 29.1 pg 27.0-32.0 [facility] MCHC (RBC) [Mass/Vol] 33.2 g/dL 32-36 [facility] Nucleated RBC/100 WBC (Bld) [Ratio] 0 % 0-5 [facility] Platelets (Bld) [#/Vol] 270 10*3/uL 150-450 [facility] No Panel InformationOrdered By: Geoff Perez on 11-21-2023 Estimated GFR (MDRD) Amer 96 mL/min >60 [facility] Comment on above: GFR Calc Estimated GFR (MDRD) Non-Af Amer 80 mL/min >60 [facility] Comment on above: Non- GFR Calc Vitamin D 25-Hydroxy 30.8 ng/mL [facility] Comment on above: Vitamin D 25(OH) Sta tus Range Deficiency <20 ng/mL (50nmol/L) Insufficiency 20 - 30 ng/mL (50 - 75 nmol/L) Sufficiency 30 - 100 ng/mL (75 - 250 nmol/L) Toxicity >100 ng/mL (>250 nmol/L) Platelet mean volume Rodolfo-Ec ker (Bld) [Entitic vol]Ordered By: Geoff Perez on 11-21-2023 Platelet mean volume (Bld) [Entitic vol] 8.9 fL 6.2-12.0 [facility] RBC Auto (Bld) [#/Vol]Ordere d By: Geoff Perez on 11-21-2023 RBC (Bld) [#/Vol] 4.85 10*6/uL 4.2-5.4 [facility] Serum or plasma calcium manoj urement (mass/volume)Ordered By: Geoff Perez on 11-21-2023 Calcium [Mass/Vol] 9.0 mg/dL 8.5-10.1 [facility] Serum or plasma creatinine m easurement (mass/volume)Ordered By: Geoff Perez on 11-21-2023 Creatinine [Mass/Vol] 0.77 mg/dL 0.55-1.02 [facility] Comment on above: The validity of the calculated GFR & GFRAA in patients over 70 years has not been determined. Clinical correlation is essential. Serum or plasma thyroid stim ulating hormone (TSH) measurement (units/volume)Ordered By: Geoff Perez on 11-21-2023 TSH Qn 5.26 uIU/mL 0.358-3.74 [facility] Serum or plasma urea nitroge n measurement (mass/volume)Ordered By: Geoff Perez on 11-21-2023 Urea nitrogen [Mass/Vol] 12 mg/dL 7-18 [facility] Thin prep Papanicolaou smear with manual screeningOrdered By: Geoff Perez on 11-21-2023 Thin prep Papanicolaou smear with manual screening 3.7 g/dL 3.2-5.0 [facility] Thin prep Papanicolaou smear with manual screening 15 U/L 15-37 [facility] Thin prep Papanicolaou smear with manual screening 5 5-15 [facility] Absolute lymphocyte countOrd ered By: Geoff Perez on 08-09-2023 Lymphocytes Auto (Unsp spec) [#/Vol] 1.29 10*3/uL 0.83-4.51 [facility] Basophil percentageOrdered B y: Geoff Perez on 08-09-2023 Basophils/100 WBC (Bld) 0.5 % 0-1 [facility] Bilirubin [Mass/Vol] 0.40 mg/dL 0.20-1.00 [facility] Comment on above: For patients on eltr ombopag therapy, use of Dimension [place] TBIL is not recommended. Chloride [Moles/Vol] 109 mmol/L 98-107 [facility] Eosinophils/100 WBC (Bld) 1.1 % 0-5 [facility] Glucose [Mass/Vol] 111 mg/dL 74-106 [facility] Comment on above: Fasting Glucose resu lt from 100 to 125 mg/dL suggests IMPAIRED HOMEOSTASIS per A.D.A. criteria. Neutrophils (Bld) [#/Vol] 6.2 10*3/uL 2.0-7.7 [facility] Neutrophils/100 WBC (Bld) 73.3 % 47-70 [facility] Potassium [Moles/Vol] 3.7 mmol/L 3.5-5.1 [facility] Protein [Mass/Vol] 7.2 g/dL 6.4-8.2 [facility] Sodium [Moles/Vol] 141 mmol/L 136-145 [facility] WBC (Bld) [#/Vol] 8.4 10*3/uL 4.4-11.0 [facility] Blood erythrocytes count (nu mber/volume)Ordered By: Geoff Perez on 08-09-2023 RBC (Bld) [#/Vol] 5.19 10*6/uL 4.2-5.4 [facility] Blood hemoglobin measurement (mass/volume)Ordered By: Geoff Perez on 08-09-2023 Hemoglobin (Bld) [Mass/Vol] 15.3 g/dL 12.0-15.0 [facility] Blood lymphocytes/100 leukoc ytesOrdered By: Geoff Perez on 08-09-2023 Lymphocytes/100 WBC (Bld) 15.4 % 19-41 [facility] Blood monocytes/100 leukocyt esOrdered By: Geoff Perez on 08-09-2023 Monocytes/100 WBC (Bld) 9.2 % 0-10 [facility] Blood platelet mean volumeOr dered By: Geoff Perez on 08-09-2023 Platelet mean volume (Bld) [Entitic vol] 8.6 fL 6.2-12.0 [facility] Determination of erythrocyte mean corpuscular volume (MCV)Ordered By: Geoff Perez on 08-09-2023 MCV (RBC) [Entitic vol] 89.8 fL 81-99 [facility] Hematocrit Auto (Bld) [Volum e fraction]Ordered By: Geoff Perez on 08-09-2023 Hematocrit (Bld) [Volume fraction] 46.6 % 37-47 [facility] - Chemistry and C hemistry - challengeOrdered By: Geoff Perez on 08-09-2023 ALP [Catalytic activity/Vol] 119 U/L 45-117 [facility] ALT [Catalytic activity/Vol] 26 U/L 13-56 [facility] CO2 [Moles/Vol] 27.0 mmol/L 21.0-32.0 [facility] Cobalamin (Vitamin B12) [Mass/Vol] 205 pg/mL 211-911 [facility] Globulin (S) [Mass/Vol] 3.7 g/dL 2.2-4.2 [facility] Urea nitrogen/Creatinine [Mass ratio] 17.9 mg/mg 10-20 [facility] - Hematology and Cell countsOrdered By: Geoff Perez on 08-09-2023 Erythrocyte distribution width (RBC) [Entitic vol] 42.5 fL 35.1-43.9 [facility] Erythrocyte distribution width (RBC) [Ratio] 13.0 % 11.6-14.6 [facility] Immature granulocytes/100 WBC (Bld) 0.500 % 0.0-0.9 [facility] Comment on above: IG% - Immature Granu locytes (promyelocytes, myelocytes and metamyelocytes) > 1% indicates that a LEFT SHIFT is Present. MCH (RBC) [Entitic mass] 29.5 pg 27.0-32.0 [facility] Nucleated RBC/100 WBC (Bld) [Ratio] 0 % 0-5 [facility] MCHC Auto (RBC) [Mass/Vol]Or dered By: Geoff Perez on 08-09-2023 MCHC (RBC) [Mass/Vol] 32.8 g/dL 32-36 [facility] No Panel InformationOrdered By: Geoff Perez on 08-09-2023 Estimated GFR (MDRD) Amer 102 mL/min >60 [facility] Comment on above: GFR Calc Estimated GFR (MDRD) Non-Af Amer 85 mL/min >60 [facility] Comment on above: Non- GFR Calc Thyroid Stimulating Hormone (TSH) 3.43 uIU/mL 0.358-3.74 [facility] Platelets bldOrdered By: Geoff Perez on 10-18-2023 Platelets (Bld) [#/Vol] 292 10*3/uL 150-450 [facility] Serum Treponema species anti body detectionOrdered By: Geoff Perez on 08-09-2023 Treponema sp Ab Ql (S) Non-Reactive [facility] Serum or plasma albumin manoj urement (mass/volume)Ordered By: Geoff Perez on 08-09-2023 Albumin [Mass/Vol] 3.5 g/dL 3.2-5.0 [facility] Serum or plasma albumin/glob ulin mass ratioOrdered By: Geoff Perez on 08-09-2023 Albumin/Globulin [Mass ratio] 0.9 {ratio} 0.9-2.4 [facility] Serum or plasma calcium manoj urement (mass/volume)Ordered By: Geoff Perez 08-09-2023 Calcium [Mass/Vol] 8.8 mg/dL 8.5-10.1 [facility] Serum or plasma creatinine m easurement (mass/volume)Ordered By: Geoff Perez 08-09-2023 Creatinine [Mass/Vol] 0.73 mg/dL 0.55-1.02 [facility] Comment on above: The validity of the calculated GFR & GFRAA in patients over 70 years has not been determined. Clinical correlation is essential. Serum or plasma folate measu rement (mass/volume)Ordered By: Geoff Perez on 08-09-2023 Folate [Mass/Vol] 48.00 ng/mL 3.1-55.4 [facility] Comment on above: Slight Hemolysis, Re sult may be falsely increased. Serum or plasma urea nitroge n measurement (mass/volume)Ordered By: Geoff Perez on 08-09-2023 Urea nitrogen [Mass/Vol] 13 mg/dL -18 [facility] Thin prep Papanicolaou smear with manual screeningOrdered By: Geoff Perez 08-09-2023 Thin prep Papanicolaou smear with manual screening 16 U/L 15-37 [facility] Thin prep Papanicolaou smear with manual screening 5 5-15 [facility] Whole blood hemoglobin A1c/t otal hemoglobin ratio (mass fraction)Ordered By: Geoff Perez 08-09-2023 HbA1c (Bld) [Mass fraction] 5.0 % 3.8-5.6 [facility] Comment on above: Normal < 5.7 % Predi abetic 5.7 - 6.4 % Diabetic >or= 6.5 % Please note range changes. Absolute lymphocyte countOrd ered By: Dr. Perez on 02-16-2023 Lymphocytes Auto (Unsp spec) [#/Vol] 1.97 10*3/uL 0.83-4.51 [facility] Basophil percentageOrdered B y: Dr. Perez on 02-16-2023 Basophils/100 WBC (Bld) 0.7 % 0-1 [facility] Bilirubin [Mass/Vol] 0.50 mg/dL 0.20-1.00 [facility] Comment on above: For patients on eltr ombopag therapy, use of Dimension [place] TBIL is not recommended. Chloride [Moles/Vol] 109 mmol/L 98-107 [facility] Eosinophils/100 WBC (Bld) 1.2 % 0-5 [facility] Glucose [Mass/Vol] 112 mg/dL 74-106 [facility] Comment on above: Fasting Glucose resu lt from 100 to 125 mg/dL suggests IMPAIRED HOMEOSTASIS per A.D.A. criteria. Neutrophils (Bld) [#/Vol] 4.6 10*3/uL 2.0-7.7 [facility] Neutrophils/100 WBC (Bld) 62.8 % 47-70 [facility] Potassium [Moles/Vol] 3.4 mmol/L 3.5-5.1 [facility] Protein [Mass/Vol] 6.5 g/dL 6.4-8.2 [facility] Sodium [Moles/Vol] 138 mmol/L 136-145 [facility] WBC (Bld) [#/Vol] 7.4 10*3/uL 4.4-11.0 [facility] Blood erythrocytes count (nu mber/volume)Ordered By: Dr. Perez on 02-16-2023 RBC (Bld) [#/Vol] 4.99 10*6/uL 4.2-5.4 [facility] Blood hemoglobin measurement (mass/volume)Ordered By: Dr. Perez on 02-16-2023 Hemoglobin (Bld) [Mass/Vol] 14.5 g/dL 12.0-15.0 [facility] Blood lymphocytes/100 leukoc ytesOrdered By: Dr. Perez on 02-16-2023 Lymphocytes/100 WBC (Bld) 26.8 % 19-41 [facility] Blood monocytes/100 leukocyt esOrdered By: Dr. Perez on 02-16-2023 Monocytes/100 WBC (Bld) 8.0 % 0-10 [facility] Blood platelet mean volumeOr dered By: Dr. Perez on 02-16-2023 Platelet mean volume (Bld) [Entitic vol] 8.7 fL 6.2-12.0 [facility] Determination of erythrocyte mean corpuscular volume (MCV)Ordered By: Dr. Perez on 02-16-2023 MCV (RBC) [Entitic vol] 88.0 fL 81-99 [facility] Hematocrit Auto (Bld) [Volum e fraction]Ordered By: Dr. Perez on 02-16-2023 Hematocrit (Bld) [Volume fraction] 43.9 % 37-47 [facility] - Chemistry and C hemistry - challengeOrdered By: Dr. Perez on 02-16-2023 ALP [Catalytic activity/Vol] 88 U/L 45-117 [facility] ALT [Catalytic activity/Vol] 19 U/L 13-56 [facility] CO2 [Moles/Vol] 24.0 mmol/L 21.0-32.0 [facility] Globulin (S) [Mass/Vol] 3.1 g/dL 2.2-4.2 [facility] Urea nitrogen/Creatinine [Mass ratio] 14.6 mg/mg 10-20 [facility] - Hematology and Cell countsOrdered By: Dr. Perez on 02-16-2023 Erythrocyte distribution width (RBC) [Entitic vol] 42.6 fL 35.1-43.9 [facility] Erythrocyte distribution width (RBC) [Ratio] 13.2 % 11.6-14.6 [facility] Immature granulocytes/100 WBC (Bld) 0.500 % 0.0-0.9 [facility] Comment on above: IG% - Immature Granu locytes (promyelocytes, myelocytes and metamyelocytes) > 1% indicates that a LEFT SHIFT is Present. MCH (RBC) [Entitic mass] 29.1 pg 27.0-32.0 [facility] Nucleated RBC/100 WBC (Bld) [Ratio] 0 % 0-5 [facility] MCHC Auto (RBC) [Mass/Vol]Or dered By: Dr. Perez on 02-16-2023 MCHC (RBC) [Mass/Vol] 33.0 g/dL 32-36 [facility] No Panel InformationOrdered By: Dr. Perez on 02-16-2023 Estimated GFR (MDRD) Amer 81 mL/min >60 [facility] Comment on above: GFR Calc Estimated GFR (MDRD) Non-Af Amer 67 mL/min >60 [facility] Comment on above: Non- GFR Calc Thyroid Stimulating Hormone (TSH) 3.59 uIU/mL 0.358-3.74 [facility] Vitamin D 25-Hydroxy 33.2 ng/mL [facility] Comment on above: Vitamin D 25(OH) Sta tus Range Deficiency <20 ng/mL (50nmol/L) Insufficiency 20 - 30 ng/mL (50 - 75 nmol/L) Sufficiency 30 - 100 ng/mL (75 - 250 nmol/L) Toxicity >100 ng/mL (>250 nmol/L) Platelets bldOrdered By: Dr. Perez on 02-16-2023 Platelets (Bld) [#/Vol] 278 10*3/uL 150-450 [facility] Serum or plasma albumin manoj urement (mass/volume)Ordered By: Dr. Perez on 02-16-2023 Albumin [Mass/Vol] 3.4 g/dL 3.2-5.0 [facility] Serum or plasma albumin/glob ulin mass ratioOrdered By: Dr. Perez on 02-16-2023 Albumin/Globulin [Mass ratio] 1.1 {ratio} 0.9-2.4 [facility] Serum or plasma calcium manoj urement (mass/volume)Ordered By: Dr. Perez on 02-16-2023 Calcium [Mass/Vol] 8.7 mg/dL 8.5-10.1 [facility] Serum or plasma creatinine m easurement (mass/volume)Ordered By: Dr. Perez on 02-16-2023 Creatinine [Mass/Vol] 0.89 mg/dL 0.55-1.02 [facility] Comment on above: The validity of the calculated GFR & GFRAA in patients over 70 years has not been determined. Clinical correlation is essential. Serum or plasma urea nitroge n measurement (mass/volume)Ordered By: Dr. Perez on 02-16-2023 Urea nitrogen [Mass/Vol] 13 mg/dL 7-18 [facility] Thin prep Papanicolaou smear with manual screeningOrdered By: Dr. Perez on 02-16-2023 Thin prep Papanicolaou smear with manual screening 16 U/L 15-37 [facility] Thin prep Papanicolaou smear with manual screening 5 5-15 [facility] COVID-19 virus antigen assay Ordered By: Dr. Perez on 02-15-2023 SARS-CoV-2 (COVID-19) Ag IA.rapid Ql (Resp) Not detected Not Detect [facility] Comment on above: Normal Reference Ran ge: Not DetectedMethod:(RT-PCR) real-time reverse transcriptase PCRLuminex DOMINIK Instrument*The Food and Drug Administration (FDA) has issued an Emergency Use Authorization (EAU) for the DOMINIK SARS-CoV-2 Assay for the rapid detection of the virus that causes COVID-19. This test has been validated, but the FDAs independent review of this validation is pending.*Negative results do not preclude infection and should not be used as the sole basis for treatment or patient management. Optimum specimen types and timing for peak viral levels during infections caused by SARS-CoV-2 have not been determined. Collection of multiple specimens from the same patient may be necessary to detect the virus. The possibility of a false negative result should be considered if the patient has clinical presentation or has had recent exposure. No Panel InformationOrdered By: Geoff Perez on 02-15-2023 Influenza Types A,B Direct FA (GEMMA) [facility] No Panel InformationOrdered By: Dr. Perez on 02-15-2023 Influenza Types A,B Direct FA (GEMMA) [facility] RSV Ag EIAOrdered By: Geoff asif on 02-15-2023 RSV Ag Immune stain Ql (Tiss) [facility] RSV Ag EIAOrdered By: Dr. Britney asif on 02-15-2023 RSV Ag Immune stain Ql (Tiss) [facility] Absolute lymphocyte counton 08-18-2022 Lymphocytes Auto (Unsp spec) [#/Vol] 0.96 10*3/uL 0.83-4.51 [facility] Work Phone: Basophil percentageon 2021 Basophils/100 WBC (Bld) 0.5 % 0-1 [facility] Work Phone: Bilirubin [Mass/Vol] 0.50 mg/dL 0.20-1.00 [facility] Work Phone: Comment on above: For patients on eltr ombopag therapy, use of Dimension [place] TBIL is not recommended. Chloride [Moles/Vol] 110 mmol/L 98-107 [facility] Work Phone: Eosinophils/100 WBC (Bld) 2.3 % 0-5 [facility] Work Phone: Glucose [Mass/Vol] 92 mg/dL 74-106 [facility] Work Phone: Neutrophils (Bld) [#/Vol] 4.2 10*3/uL 2.0-7.7 [facility] Work Phone: Neutrophils/100 WBC (Bld) 72.5 % 47-70 [facility] Work Phone: Potassium [Moles/Vol] 4.0 mmol/L 3.5-5.1 [facility] Work Phone: Protein [Mass/Vol] 6.5 g/dL 6.4-8.2 [facility] Work Phone: Sodium [Moles/Vol] 141 mmol/L 136-145 [facility] Work Phone: WBC (Bld) [#/Vol] 5.7 10*3/uL 4.4-11.0 [facility] Work Phone: Blood erythrocytes count (nu mber/volume)on 08-18-2022 RBC (Bld) [#/Vol] 4.64 10*6/uL 4.2-5.4 [facility] Work Phone: Blood hemoglobin measurement (mass/volume)on 08-18-2022 Hemoglobin (Bld) [Mass/Vol] 13.5 g/dL 12.0-15.0 [facility] Work Phone: Blood lymphocytes/100 leukoc yteson 08-18-2022 Lymphocytes/100 WBC (Bld) 16.7 % 19-41 [facility] Work Phone: Blood monocytes/100 leukocyt eson 08-18-2022 Monocytes/100 WBC (Bld) 7.8 % 0-10 [facility] Work Phone: Blood platelet mean volumeon 08-18-2022 Platelet mean volume (Bld) [Entitic vol] 8.6 fL 6.2-12.0 [facility] Work Phone: Determination of erythrocyte mean corpuscular volume (MCV)on 08-18-2022 MCV (RBC) [Entitic vol] 85.8 fL 81-99 [facility] Work Phone: Hematocrit Auto (Bld) [Volum e fraction]on 08-18-2022 Hematocrit (Bld) [Volume fraction] 39.8 % 37-47 [facility] Work Phone: Laboratory - Chemistry and C hemistry - challengeon 08-18-2022 ALP [Catalytic activity/Vol] 87 U/L 45-117 [facility] Work Phone: ALT [Catalytic activity/Vol] 19 U/L 13-56 [facility] Work Phone: CO2 [Moles/Vol] 27.0 mmol/L 21.0-32.0 [facility] Work Phone: Globulin (S) [Mass/Vol] 3.1 g/dL 2.2-4.2 [facility] Work Phone: Urea nitrogen/Creatinine [Mass ratio] 24.2 mg/mg 10-20 [facility] Work Phone: Laboratory - Hematology and Cell countson 08-18-2022 Erythrocyte distribution width (RBC) [Entitic vol] 41.6 fL 35.1-43.9 [facility] Work Phone: Erythrocyte distribution width (RBC) [Ratio] 13.2 % 11.6-14.6 [facility] Work Phone: Immature granulocytes/100 WBC (Bld) 0.200 % 0.0-0.9 [facility] Work Phone: Comment on above: IG% - Immature Granu locytes (promyelocytes, myelocytes and metamyelocytes) > 1% indicates that a LEFT SHIFT is Present. MCH (RBC) [Entitic mass] 29.1 pg 27.0-32.0 [facility] Work Phone: Nucleated RBC/100 WBC (Bld) [Ratio] 0 % 0-5 [facility] Work Phone: MCHC Auto (RBC) [Mass/Vol]on 08-18-2022 MCHC (RBC) [Mass/Vol] 33.9 g/dL 32-36 [facility] Work Phone: No Panel Informationon 08-18 Estimated GFR (MDRD) Amer 100 mL/min >60 [facility] Work Phone: Comment on above: GFR Calc Estimated GFR (MDRD) Non-Af Amer 83 mL/min >60 [facility] Work Phone: Comment on above: Non- GFR Calc Thyroid Stimulating Hormone (TSH) 3.00 uIU/mL 0.358-3.74 [facility] Work Phone: Vitamin D 25-Hydroxy 34.5 ng/mL [facility] Work Phone: Comment on above: Vitamin D 25(OH) Sta tus Range Deficiency <20 ng/mL (50nmol/L) Insufficiency 20 - 30 ng/mL (50 - 75 nmol/L) Sufficiency 30 - 100 ng/mL (75 - 250 nmol/L) Toxicity >100 ng/mL (>250 nmol/L) Platelets bldon 08-18-2022 Platelets (Bld) [#/Vol] 238 10*3/uL 150-450 [facility] Work Phone: Serum or plasma albumin manoj urement (mass/volume)on 08-18-2022 Albumin [Mass/Vol] 3.4 g/dL 3.2-5.0 [facility] Work Phone: Serum or plasma albumin/glob ulin mass ratioon 08-18-2022 Albumin/Globulin [Mass ratio] 1.1 {ratio} 0.9-2.4 [facility] Work Phone: Serum or plasma calcium manoj urement (mass/volume)on 08-18-2022 Calcium [Mass/Vol] 8.9 mg/dL 8.5-10.1 [facility] Work Phone: Serum or plasma creatinine m easurement (mass/volume)on 08-18-2022 Creatinine [Mass/Vol] 0.74 mg/dL 0.55-1.02 [facility] Work Phone: Comment on above: The validity of the calculated GFR & GFRAA in patients over 70 years has not been determined. Clinical correlation is essential. Serum or plasma urea nitroge n measurement (mass/volume)on 08-18-2022 Urea nitrogen [Mass/Vol] 18 mg/dL 7-18 [facility] Work Phone: Thin prep Papanicolaou smear with manual screeningon 08-18-2022 Thin prep Papanicolaou smear with manual screening 19 U/L 15-37 [facility] Work Phone: Thin prep Papanicolaou smear with manual screening 4 5-15 [facility] Work Phone: No Panel Informationon 06-30 Thyroid Stimulating Hormone (TSH) 2.83 uIU/mL 0.358-3.74 [facility] Work Phone: Absolute lymphocyte counton 02-23-2022 Lymphocytes Auto (Unsp spec) [#/Vol] 1.24 10*3/uL 0.83-4.51 [facility] Work Phone: Basophil percentageon 2021 Basophils/100 WBC (Bld) 0.4 % 0-1 [facility] Work Phone: Bilirubin [Mass/Vol] 0.40 mg/dL 0.20-1.00 [facility] Work Phone: Comment on above: For patients on eltr ombopag therapy, use of Dimension [place] TBIL is not recommended. Chloride [Moles/Vol] 105 mmol/L 98-107 [facility] Work Phone: Eosinophils/100 WBC (Bld) 3.4 % 0-5 [facility] Work Phone: Glucose [Mass/Vol] 94 mg/dL 74-106 [facility] Work Phone: [phone] Neutrophils (Bld) [#/Vol] 5.3 10*3/uL 2.0-7.7 [facility] Work Phone: Neutrophils/100 WBC (Bld) 69.2 % 47-70 [facility] Work Phone: [phone] Potassium [Moles/Vol] 4.1 mmol/L 3.5-5.1 [facility] Work Phone: Protein [Mass/Vol] 6.9 g/dL 6.4-8.2 [facility] Work Phone: [phone] Sodium [Moles/Vol] 139 mmol/L 136-145 [facility] Work Phone: [phone] WBC (Bld) [#/Vol] 7.6 10*3/uL 4.4-11.0 [facility] Work Phone: [phone] Blood erythrocytes count (nu mber/volume)on 02-23-2022 RBC (Bld) [#/Vol] 4.84 10*6/uL 4.2-5.4 [facility] Work Phone: [phone] Blood hemoglobin measurement (mass/volume)on 02-23-2022 Hemoglobin (Bld) [Mass/Vol] 13.7 g/dL 12.0-15.0 [facility] Work Phone: Blood lymphocytes/100 leukoc yteson 02-23-2022 Lymphocytes/100 WBC (Bld) 16.3 % 19-41 [facility] Work Phone: Blood monocytes/100 leukocyt eson 02-23-2022 Monocytes/100 WBC (Bld) 10.4 % 0-10 [facility] Work Phone: Blood platelet mean volumeon 02-23-2022 Platelet mean volume (Bld) [Entitic vol] 8.9 fL 6.2-12.0 [facility] Work Phone: Determination of erythrocyte mean corpuscular volume (MCV)on 02-23-2022 MCV (RBC) [Entitic vol] 85.5 fL 81-99 [facility] Work Phone: Hematocrit Auto (Bld) [Volum e fraction]on 02-23-2022 Hematocrit (Bld) [Volume fraction] 41.4 % 37-47 [facility] Work Phone: Laboratory - Chemistry and C hemistry - challengeon 02-23-2022 ALP [Catalytic activity/Vol] 69 U/L 45-117 [facility] Work Phone: ALT [Catalytic activity/Vol] 26 U/L 13-56 [facility] Work Phone: CO2 [Moles/Vol] 29.0 mmol/L 21.0-32.0 [facility] Work Phone: Globulin (S) [Mass/Vol] 3.5 g/dL 2.2-4.2 [facility] Work Phone: Urea nitrogen/Creatinine [Mass ratio] 17.6 mg/mg 10-20 [facility] Work Phone: Laboratory - Hematology and Cell countson 02-23-2022 Erythrocyte distribution width (RBC) [Entitic vol] 43.7 fL 35.1-43.9 [facility] Work Phone: Erythrocyte distribution width (RBC) [Ratio] 13.9 % 11.6-14.6 [facility] Work Phone: Immature granulocytes/100 WBC (Bld) 0.300 % 0.0-0.9 [facility] Work Phone: Comment on above: IG% - Immature Granu locytes (promyelocytes, myelocytes and metamyelocytes) > 1% indicates that a LEFT SHIFT is Present. MCH (RBC) [Entitic mass] 28.3 pg 27.0-32.0 [facility] Work Phone: Nucleated RBC/100 WBC (Bld) [Ratio] 0 % 0-5 [facility] Work Phone: MCHC Auto (RBC) [Mass/Vol]on 02-23-2022 MCHC (RBC) [Mass/Vol] 33.1 g/dL 32-36 [facility] Work Phone: No Panel Informationon 02-23 Estimated GFR (MDRD) Amer 111 mL/min >60 [facility] Work Phone: Comment on above: GFR Calc Estimated GFR (MDRD) Non-Af Amer 92 mL/min >60 [facility] Work Phone: Comment on above: Non- GFR Calc Thyroid Stimulating Hormone (TSH) 5.18 uIU/mL 0.358-3.74 [facility] Work Phone: Vitamin D 25-Hydroxy 32.8 ng/mL [facility] Work Phone: Comment on above: Vitamin D 25(OH) Sta tus Range Deficiency <20 ng/mL (50nmol/L) Insufficiency 20 - 30 ng/mL (50 - 75 nmol/L) Sufficiency 30 - 100 ng/mL (75 - 250 nmol/L) Toxicity >100 ng/mL (>250 nmol/L) Platelets bldon 02-23-2022 Platelets (Bld) [#/Vol] 272 10*3/uL 150-450 [facility] Work Phone: Serum or plasma albumin manoj urement (mass/volume)on 02-23-2022 Albumin [Mass/Vol] 3.4 g/dL 3.2-5.0 [facility] Work Phone: Serum or plasma albumin/glob ulin mass ratioon 02-23-2022 Albumin/Globulin [Mass ratio] 1.0 {ratio} 0.9-2.4 [facility] Work Phone: Serum or plasma calcium manoj urement (mass/volume)on 02-23-2022 Calcium [Mass/Vol] 8.8 mg/dL 8.5-10.1 [facility] Work Phone: Serum or plasma creatinine m easurement (mass/volume)on 02-23-2022 Creatinine [Mass/Vol] 0.68 mg/dL 0.55-1.02 [facility] Work Phone: Comment on above: The validity of the calculated GFR & GFRAA in patients over 70 years has not been determined. Clinical correlation is essential. Serum or plasma urea nitroge n measurement (mass/volume)on 02-23-2022 Urea nitrogen [Mass/Vol] 12 mg/dL 7-18 [facility] Work Phone: Thin prep Papanicolaou smear with manual screeningon 02-23-2022 Thin prep Papanicolaou smear with manual screening 28 U/L 15-37 [facility] Work Phone: Thin prep Papanicolaou smear with manual screening 5 5-15 [facility] Work Phone: Absolute lymphocyte counton 02-16-2022 Lymphocytes Auto (Unsp spec) [#/Vol] 1.05 10*3/uL 0.83-4.51 [facility] Work Phone: Basophil percentageon 2021 Basophils/100 WBC (Bld) 0.3 % 0-1 [facility] Work Phone: Bilirubin [Mass/Vol] 0.40 mg/dL 0.20-1.00 [facility] Work Phone: Comment on above: For patients on eltr ombopag therapy, use of Dimension [place] TBIL is not recommended. Chloride [Moles/Vol] 106 mmol/L 98-107 [facility]: Eosinophils/100 WBC (Bld) 4.7 % 0-5 [facility] Work Phone: Glucose [Mass/Vol] 81 mg/dL 74-106 [facility] Work [facility]: Neutrophils (Bld) [#/Vol] 3.9 10*3/uL 2.0-7.7 [facility] Work Phone: Neutrophils/100 WBC (Bld) 65.1 % 47-70 [facility] Work Phone: Potassium [Moles/Vol] 3.9 mmol/L 3.5-5.1 [facility] Work Phone: Protein [Mass/Vol] 6.5 g/dL 6.4-8.2 [facility] Work [facility]: Sodium [Moles/Vol] 140 mmol/L 136-145 [facility] Work Phone: WBC (Bld) [#/Vol] 6.0 10*3/uL 4.4-11.0 [facility] Work Phone: Blood erythrocytes count (nu mber/volume)on 02-16-2022 RBC (Bld) [#/Vol] 4.72 10*6/uL 4.2-5.4 [facility]: Blood hemoglobin measurement (mass/volume)on 02-16-2022 Hemoglobin (Bld) [Mass/Vol] 13.4 g/dL 12.0-15.0 [facility] Work Phone: Blood lymphocytes/100 leukoc yteson 02-16-2022 Lymphocytes/100 WBC (Bld) 17.5 % 19-41 [facility] Work Phone: Blood monocytes/100 leukocyt eson 02-16-2022 Monocytes/100 WBC (Bld) 12.1 % 0-10 [facility] Work Phone: Blood platelet mean volumeon 02-16-2022 Platelet mean volume (Bld) [Entitic vol] 8.9 fL 6.2-12.0 [facility] Work Phone: Determination of erythrocyte mean corpuscular volume (MCV)on 02-16-2022 MCV (RBC) [Entitic vol] 87.7 fL 81-99 [facility] Work Phone: Erythrocyte sedimentation ra ria 02-16-2022 ESR (Bld) [Velocity] 11 mm[facility]h 0-[facility] Work [facility]: Hematocrit Auto (Bld) [Volum e fraction]on 02-16-2022 Hematocrit (Bld) [Volume fraction] 41.4 % 37-47 [facility] Work Phone: Laboratory - Chemistry and C hemistry - challengeon 02-16-2022 ALP [Catalytic activity/Vol] 64 U/L 45-117 [facility] Work Phone: ALT [Catalytic activity/Vol] 21 U/L 13-56 [facility] Work Phone: CO2 [Moles/Vol] 28.0 mmol/L 21.0-32.0 [facility] Work Phone: Cobalamin (Vitamin B12) [Mass/Vol] 346 pg/mL 211-911 [facility] Work Phone: Globulin (S) [Mass/Vol] 3.2 g/dL 2.2-4.2 [facility] Work Phone: Urea nitrogen/Creatinine [Mass ratio] 14.0 mg/mg 10-20 [facility] Work Phone: Laboratory - Hematology and Cell countson 02-16-2022 Erythrocyte distribution width (RBC) [Entitic vol] 44.8 fL 35.1-43.9 [facility] Work Phone: Erythrocyte distribution width (RBC) [Ratio] 13.8 % 11.6-14.6 [facility] Work Phone: Immature granulocytes/100 WBC (Bld) 0.300 % 0.0-0.9 [facility] Work Phone: Comment on above: IG% - Immature Granu locytes (promyelocytes, myelocytes and metamyelocytes) > 1% indicates that a LEFT SHIFT is Present. MCH (RBC) [Entitic mass] 28.4 pg 27.0-32.0 [facility] Work Phone: Nucleated RBC/100 WBC (Bld) [Ratio] 0 % 0-5 [facility] Work Phone: MCHC Auto (RBC) [Mass/Vol]on 02-16-2022 MCHC (RBC) [Mass/Vol] 32.4 g/dL 32-36 [facility] Work Phone: No Panel Informationon 02-16 Anti-Nuclear Antibody Screen Negative Negative [facility] Work Phone: Comment on above: Performed at: [place] [id number] Director: Houston Bowden PhD, Phone: [phone] Estimated GFR (MDRD) Amer 118 mL/min >60 [facility] Work Phone: Comment on above: GFR Calc Estimated GFR (MDRD) Non-Af Amer 98 mL/min >60 [facility] Work Phone: Comment on above: Non- GFR Calc Vitamin D 25-Hydroxy 34.6 ng/mL [facility] Work Phone: Comment on above: Vitamin D 25(OH) Sta tus Range Deficiency <20 ng/mL (50nmol/L) Insufficiency 20 - 30 ng/mL (50 - 75 nmol/L) Sufficiency 30 - 100 ng/mL (75 - 250 nmol/L) Toxicity >100 ng/mL (>250 nmol/L) Platelets bldon 02-16-2022 Platelets (Bld) [#/Vol] 257 10*3/uL 150-450 [facility] Work Phone: Serum or plasma C reactive p rotein measurement (mass/volume)on 02-16-2022 CRP [Mass/Vol] 6.72 mg/L 0.0-3.0 [facility] Work Phone: Comment on above: C-Reactive Protein ( CRP) provides useful information for thediagnosis, therapy and monitoring of inflammatory processesand associated diseases. For the evaluation of Relative Riskfor Cardiovascular Disease, a High Sensitivity CRP (HSCRP)should be ordered. Serum or plasma albumin manoj urement (mass/volume)on 02-16-2022 Albumin [Mass/Vol] 3.3 g/dL 3.2-5.0 [facility] Work Phone: Serum or plasma albumin/glob ulin mass ratioon 02-16-2022 Albumin/Globulin [Mass ratio] 1.0 {ratio} 0.9-2.4 [facility] Work Phone: Serum or plasma calcium manoj urement (mass/volume)on 02-16-2022 Calcium [Mass/Vol] 8.2 mg/dL 8.5-10.1 [facility] Work Phone: Serum or plasma creatinine m easurement (mass/volume)on 02-16-2022 Creatinine [Mass/Vol] 0.64 mg/dL 0.55-1.02 [facility] Work Phone: Comment on above: The validity of the calculated GFR & GFRAA in patients over 70 years has not been determined. Clinical correlation is essential. Serum or plasma folate measu rement (mass/volume)on 02-16-2022 Folate [Mass/Vol] 33.60 ng/mL 3.1-55.4 [facility] Work Phone: Serum or plasma urea nitroge n measurement (mass/volume)on 02-16-2022 Urea nitrogen [Mass/Vol] 9 mg/dL 7-18 [facility] Work Phone: Serum rheumatoid factor dete ctionon 02-16-2022 Rheumatoid factor Ql (S) < 10.0 IU/mL <15 [facility] Work Phone: Thin prep Papanicolaou smear with manual screeningon 02-16-2022 Thin prep Papanicolaou smear with manual screening 23 U/L 15-37 [facility] Work Phone: Thin prep Papanicolaou smear with manual screening 6 5-15 [facility] Work Phone: Aldolase ser/plason 11-29-19 22 Aldolase [Catalytic activity/Vol] 8.6 mU/mL [facility] Work Phone: Comment on above: Performed at: [place] [id number] Director: Houston Bowden PhD, Phone: [phone] Laboratory - Chemistry and C hemistry - challengeon 11-29-2021 CK [Catalytic activity/Vol] 67 U/L 26-192 [facility] Work Phone: No Panel Informationon 11-17 Miscellaneous Test Comment MAILED SPECIMEN [facility] Work Phone: Absolute lymphocyte counton 10-29-2021 Lymphocytes Auto (Unsp spec) [#/Vol] 0.90 10*3/uL 0.83-4.51 [facility] Work Phone: Basophil percentageon 2021 Basophils/100 WBC (Bld) 0.6 % 0-1 [facility] Work Phone: Bilirubin [Mass/Vol] 0.60 mg/dL 0.20-1.00 [facility] Work Phone: Comment on above: For patients on eltr ombopag therapy, use of Dimension [place] TBIL is not recommended. Chloride [Moles/Vol] 107 mmol/L 98-107 [facility] Work Phone: Eosinophils/100 WBC (Bld) 2.5 % 0-5 [facility] Work Phone: Glucose [Mass/Vol] 93 mg/dL 74-106 [facility] Work Phone: Comment on above: Please note revised GLUCOSE reference range effective 2017. Neutrophils (Bld) [#/Vol] 3.2 10*3/uL 2.0-7.7 [facility] Work Phone: Neutrophils/100 WBC (Bld) 65.7 % 47-70 [facility] Work Phone: Potassium [Moles/Vol] 4.0 mmol/L 3.5-5.1 [facility] Work Phone: Protein [Mass/Vol] 6.8 g/dL 6.4-8.2 [facility] Work Phone: Sodium [Moles/Vol] 141 mmol/L 136-145 [facility] Work Phone: [phone] WBC (Bld) [#/Vol] 4.9 10*3/uL 4.4-11.0 [facility] Work Phone: Bilirubin Test strip Ql (U)o n 10-29-2021 Bilirubin Ql (U) Negative Negative [facility] Work Phone: Blood erythrocytes count (nu mber/volume)on 10-29-2021 RBC (Bld) [#/Vol] 4.93 10*6/uL 4.2-5.4 [facility] Work [facility]: Blood hemoglobin measurement (mass/volume)on 10-29-2021 Hemoglobin (Bld) [Mass/Vol] 14.3 g/dL 12.0-15.0 [facility] Work Phone: Blood lymphocytes/100 leukoc yteson 10-29-2021 Lymphocytes/100 WBC (Bld) 18.5 % 19-41 [facility] Work Phone: Blood monocytes/100 leukocyt eson 10-29-2021 Monocytes/100 WBC (Bld) 12.3 % 0-10 [facility] Work Phone: Blood platelet mean volumeon 10-29-2021 Platelet mean volume (Bld) [Entitic vol] 9.0 fL 6.2-12.0 [facility] Work Phone: Determination of erythrocyte mean corpuscular volume (MCV)on 10-29-2021 MCV (RBC) [Entitic vol] 88.2 fL 81-99 [facility] Work Phone: Dilute Colby's viper venom timeon 10-29-2021 dRVVT Coag (PPP) [Time] 32.6 s [facility] Work Phone: Erythrocyte sedimentation ra ria 10-29-2021 ESR (Bld) [Velocity] 10 mm/h 0-30 [facility] Work Phone: Hematocrit Auto (Bld) [Volum e fraction]on 10-29-2021 Hematocrit (Bld) [Volume fraction] 43.5 % 37-47 [facility] Work Phone: INR in Blood by Coagulation assayon 10-29-2021 INR Coag (Bld) [Relative time] 1.1 {INR} [facility] Work Phone: Ketones Test strip Ql (U)on 10-29-2021 Ketones Ql (U) Negative Negative [facility] Work Phone: Laboratory - Chemistry and C hemistry - challengeon 10-29-2021 ALP [Catalytic activity/Vol] 65 U/L 45-117 [facility] Work Phone: ALT [Catalytic activity/Vol] 32 U/L 13-56 [facility] Work Phone: CO2 [Moles/Vol] 28.0 mmol/L 21.0-32.0 [facility] Work Phone: Globulin (S) [Mass/Vol] 3.4 g/dL 2.2-4.2 [facility] Work Phone: Urea nitrogen/Creatinine [Mass ratio] 18.3 mg/mg 10-20 [facility] Work Phone: Laboratory - Coagulationon 0 10-29-2021 aPTT Coag (Bld) [Time] 31.0 s 24.1-36.2 [facility] Work Phone: PT Coag (PPP) [Time] 13.4 s 11.7-14.9 [facility] Work Phone: Laboratory - Hematology and Cell countson 10-29-2021 Erythrocyte distribution width (RBC) [Entitic vol] 45.5 fL 35.1-43.9 [facility] Work Phone: Erythrocyte distribution width (RBC) [Ratio] 14.1 % 11.6-14.6 [facility] Work Phone: Immature granulocytes/100 WBC (Bld) 0.400 % 0.0-0.9 [facility] Work Phone: Comment on above: IG% - Immature Granu locytes (promyelocytes, myelocytes and metamyelocytes) > 1% indicates that a LEFT SHIFT is Present. MCH (RBC) [Entitic mass] 29.0 pg 27.0-32.0 [facility] Work Phone: Nucleated RBC/100 WBC (Bld) [Ratio] 0 % 0-5 [facility] Work Phone: Laboratory - Miscellaneous t estson 10-29-2021 Service comment (Unsp spec) [Interp] Comment [facility] Work Phone: Comment on above: Results do not indic ate the presence of a LupusAnticoagulant: abnormal high screening results (PTT-LA,dRVVT, mixing studies), may be due to medication (heparin,warfarin, aspirin), Factor inhibitors, anticardiolipinantibodies, or poor specimen integrity.Performed at: [address] [id number] Director: Micheline Saravia MD, Phone: [phone] MCHC Auto (RBC) [Mass/Vol]on 10-29-2021 MCHC (RBC) [Mass/Vol] 32.9 g/dL 32-36 [facility] Work Phone: Nitrite Test strip Ql (U)on 10-29-2021 Nitrite Ql (U) Negative Negative [facility] Work Phone: No Panel Informationon 10-29 Miscellaneous Test Comment MAILED SPECIMEN [facility] Work Phone: Estimated GFR (MDRD) Amer 144 mL/min >60 [facility] Work Phone: Comment on above: GFR Calc Estimated GFR (MDRD) Non-Af Amer 119 mL/min >60 [facility] Work Phone: Comment on above: Non- GFR Calc Hepatitis B Surface Antigen Non-Reactive Nonreactive [facility] Work Phone: Hepatitis C Antibody Non-Reactive Nonreactive [facility] Work Phone: Comment on above: Non Reactive: < 0.8 Equivocal: >/= 0.8 to < 1.0 Reactive: >/= 1.0The CDC recommends that a reactive/equivocal HCV antibody result be followed up by the HCV Nucleic Acid Amplificationtest (454657) Platelets bldon 10-29-2021 Platelets (Bld) [#/Vol] 250 10*3/uL 150-450 [facility] Work Phone: Protein Test strip Ql (U)on 10-29-2021 Protein Ql (U) Negative Negative [facility] Work Phone: Serum hepatitis B virus surf abril antibody IgG detectionon 10-29-2021 HBV surface IgG Ql (S) Non-Reactive [facility] Work Phone: Comment on above: Non Reactive: Incons istent with immunity less than <10 mIU/mL Reactive: Consistent with immunity greater than or equal to 10 mIU/mL Serum or plasma C reactive p rotein measurement (mass/volume)on 10-29-2021 CRP [Mass/Vol] 3.52 mg/L 0.0-3.0 [facility] Work Phone: Comment on above: C-Reactive Protein ( CRP) provides useful information for thediagnosis, therapy and monitoring of inflammatory processesand associated diseases. For the evaluation of Relative Riskfor Cardiovascular Disease, a High Sensitivity CRP (HSCRP)should be ordered. Serum or plasma albumin manoj urement (mass/volume)on 10-29-2021 Albumin [Mass/Vol] 3.4 g/dL 3.2-5.0 [facility] Work Phone: Serum or plasma albumin/glob ulin mass ratioon 10-29-2021 Albumin/Globulin [Mass ratio] 1.0 {ratio} 0.9-2.4 [facility] Work Phone: Serum or plasma calcium manoj urement (mass/volume)on 10-29-2021 Calcium [Mass/Vol] 9.0 mg/dL 8.5-10.1 [facility] Work Phone: Serum or plasma creatinine m easurement (mass/volume)on 10-29-2021 Creatinine [Mass/Vol] 0.54 mg/dL 0.55-1.02 Al[facility] Work Phone: Comment on above: The validity of the calculated GFR & GFRAA in patients over 70 years has not been determined. Clinical correlation is essential. Serum or plasma urea nitroge n measurement (mass/volume)on 10-29-2021 Urea nitrogen [Mass/Vol] 10 mg/dL 7-18 [facility] Work Phone: Thin prep Papanicolaou smear with manual screeningon 10-29-2021 Thin prep Papanicolaou smear with manual screening 38 U/L 15-37 [facility] Work Phone: Thin prep Papanicolaou smear with manual screening 6 5-15 [facility] Work Phone: Thin prep Papanicolaou smear with manual screening 34.6 sec [facility] Work Phone: Thin prep Papanicolaou smear with manual screening 1.00 Ratio [facility] Work Phone: Thin prep Papanicolaou smear with manual screening 36.6 sec [facility] Work Phone: Thin prep Papanicolaou smear with manual screening Comment: [facility] Work Phone: Comment on above: No lupus anticoagula nt was detected. Thrombin time in platelet po or plasmaon 10-29-2021 Thrombin time Coag (PPP) [Time] 15.2 sec [facility] Work Phone: Urine blood detectionon RBC Ql (U) Negative Negative [facility] Work Phone: Urine clarityon 10-29-2021 Clarity (U) Sl. Cloudy Clear [facility] Work Phone: Urine color determinationon 10-29-2021 Color (U) Yellow Yellow [facility] Work Phone: Urine creatinine measurement (mass/volume)on 10-29-2021 Creatinine (U) [Mass/Vol] 108.00 mg/dL NO RANGE EST. [facility] Work Phone: Urine glucose detectionon Glucose Ql (U) Normal mg/dl Normal [facility] Work Phone: Urine leukocyte esterase det ection by dipstickon 10-29-2021 Leukocyte esterase Test strip Ql (U) 100 /ul Negative [facility] Work Phone: Urine pHon 10-29-2021 pH (U) 5.0 [pH] [facility] Work Phone: Urine protein measurement (m ass/volume)on 10-29-2021 Protein (U) [Mass/Vol] 7.6 mg/dL 0.0-11.8 [facility] Work Phone: Urine protein/creatinine mas s ratioon 10-29-2021 Protein/Creatinine (U) [Mass ratio] 70 mg/g CRE 0-200 [facility] Work Phone: Urine specific gravity measu rementon 10-29-2021 Specific gravity (U) [Rel density] 1.020 [facility] Work Phone: Urobilinogen Auto test strip Ql (U)on 10-29-2021 Urobilinogen Ql (U) Normal mg/dl Normal [facility] Work Phone: Vital Signs Date Time Vital Sign Value Performing Clinician Faci lity 04-21-2023 10:04-0400 Body temperature 97.6 [degF] Dr. Geoff Perez Work Phone: [facility] 04-21-2023 10:04-0400 Diastolic blood pressure 79 mm[Hg] Dr. Geoff Perez Work Phone: [facility] 04-21-2023 10:04-0400 Heart rate 66 /min Dr. Geoff Perez Work Phone: [facility] 04-21-2023 10:04-0400 Respiratory rate 18 /min Dr. Geoff Perez Work Phone: [facility] 04-21-2023 10:04-0400 SaO2% (BldA) [Mass fraction] 96 % Dr. Geoff Perez Work Phone: [facility] 04-21-2023 10:04-0400 Systolic blood pressure 111 mm[Hg] Dr. Geoff Perez Work Phone: [facility] 04-21-2023 08:06-0400 Body height 175.[address] Geoff Perez Work Phone: [facility] 04-21-2023 08:06-0400 Body mass index (BMI) [Ratio] 29.2 kg/m2 Dr. Geoff Perez Work Phone: [facility] 04-21-2023 08:06-0400 Body weight [address] Geoff Perez Work Phone: [facility] 03-09-2023 09:06-0400 Body mass index (BMI) [Ratio] 29.7 kg/m2 Dr. Geoff Perez Work Phone: [facility] 03-09-2023 09:06-0400 Body temperature 97.1 [degF] Dr. Geoff Perez Work Phone: [facility] 03-09-2023 09:06-0400 Body weight 91.[address] Geoff Perez Work Phone: [facility] 03-09-2023 09:06-0400 Diastolic blood pressure 81 mm[Hg] Dr. Geoff Perez Work Phone: [facility] 03-09-2023 09:06-0400 Heart rate 58 /min Dr. Geoff Perez Work Phone: [facility] 03-09-2023 09:06-0400 Respiratory rate 20 /min Dr. Geoff Perez Work Phone: [facility] 03-09-2023 09:06-0400 SaO2% (BldA) [Mass fraction] 99 % Dr. Geoff Perez Work Phone: [facility] 03-09-2023 09:06-0400 Systolic blood pressure 128 mm[Hg] Dr. Geoff Perez Work Phone: [facility] Encounters Encounter Date Encounter Type Care Provider Facility Start: 03-18-2025 End: 03-18-[address] Geoff Perez MD Work Phone: [facility] Work Phone: Start: 03-18-2025 End: 03-18-[address] Geoff Perez MD -Laboratory Specimen Work Phone: Start: 03-18-2025 End: 03-18-2025 ambulatory [facility] Facility:[facility] Start: 02-21-2025 End: 02-21-[address] Geoff Perez MD Work Phone: [facility] Work Phone: Start: 02-21-2025 End: 02-21-[address] Geoff Perez MD -Laboratory, Specimen Work Phone: Start: 02-21-2025 End: 02-21-2025 ambulatory Geoff Perez Facility:[facility] Start: 01-28-2025 End: 01-28-[address] Geoff Perez MD Work Phone: [facility] Work Phone: Start: 01-28-2025 End: 01-28-[address] Geoff Perez MD -Laboratory Work Phone: Start: 01-28-2025 End: 01-28-2025 ambulatory Geoff Perez Facility:[facility] Start: 01-07-2025 End: 01-07-[address] Geoff Perez MD Work Phone: [facility] Work Phone: Start: 01-07-2025 End: 01-07-[address] Geoff Perez MD -Cat Scan, [facility] Work Phone: Start: 01-06-2025 End: 01-07-[address] Geoff Perez MD Work Phone: [facility] Work Phone: Start: 01-06-2025 End: 01-06-[address] Geoff Perez MD -Laboratory, Phy Office 3rd Flr Start: 01-06-2025 End: 01-06-2025 ambulatory Geoff Jairo Perez Facility:[facility] Start: 12-17-2024 End: 12-17-[address] Geoff Perez MD Work Phone: [facility] Work Phone: Start: 12-17-2024 End: 12-17-[address] Geoff Perez MD -Laboratory, Phy Office 3rd Flr Start: 12-17-2024 End: 12-17-2024 ambulatory Geoff Chi Chris Facility:[facility] Start: 12-03-2024 End: 12-03-[address] Geoff Perez MD -Laboratory Work Phone: Start: 12-03-2024 End: 12-03-2024 ambulatory Geoff Chi Chris Facility:[facility] Start: 10-03-2024 End: 10-03-[address] Geoff Perez MD -Laboratory, Phy Office 3rd Flr Start: 10-03-2024 End: 10-03-2024 ambulatory Geoff Chi Chris Facility:[facility] Start: 08-07-2024 End: 08-07-2024 ambulatory Geoff Chi Chris Facility:[facility] Start: 07-24-2024 End: 07-24-2024 ambulatory Geoff Chi Chris Facility:[facility] Start: 05-27-2024 End: 05-27-2024 ambulatory Geoff Chi Chris Facility:[facility] Start: 05-02-2024 End: 05-02-2024 ambulatory [facility] Facility:[facility] Start: 12-26-2023 End: 12-26-2023 ambulatory [facility] Work Phone: Start: 12-26-2023 End: 12-26-2023 Patient encounter procedure [facility]-Outpatient Bone Densitometry Work Phone: Start: 11-21-2023 End: 11-21-2023 ambulatory [facility] Work Phone: Start: 11-21-2023 End: 11-21-2023 Patient encounter procedure [facility]-Laboratory, Phy Office 3rd Flr Start: 08-16-2023 End: 08-16-2023 ambulatory [facility] Work Phone: Start: 08-16-2023 End: 08-16-2023 Patient encounter procedure [facility]-Cat Scan, [facility] Work Phone: Start: 08-09-2023 End: 08-09-2023 Patient encounter procedure [facility]-Laboratory, Phy Office 3rd Flr Start: 06-07-2023 End: 06-07-2023 Patient encounter procedure [facility]-Radiology, [facility] Work Phone: Start: 04-21-2023 Non-patient / Non-visit Dr. Gume Perez Work Phone: [facility] Start: 04-21-2023 End: 04-21-2023 Admission to same day surgery center Dr. Geoff Perez Work Phone: [facility]-Endoscopy Work Phone: Start: 04-21-2023 End: 04-21-[address] Geoff Perez Work Phone: [facility] Work Phone: Start: 04-19-2023 End: 04-19-[address] Geoff Perez Work Phone: [facility] Work Phone: Start: 04-19-2023 End: 04-19-[address] Geoff Perez Work Phone: [facility]-Radiology, [facility] Work Phone: Start: 03-09-2023 End: 03-09-[address] Geoff Perez Work Phone: [facility] Work Phone: Start: 02-16-2023 End: 02-16-2023 ambulatory [facility] Work Phone: Start: 02-16-2023 End: 02-16-2023 Patient encounter procedure [facility]-Laboratory, Phy Office 3rd Flr Start: 02-15-2023 End: 02-15-2023 Patient encounter procedure [facility]-Pulmonary Services/Neurology Start: 08-18-2022 End: 08-18-[address] Geoff Perez Work Phone: [facility] Work Phone: Start: 08-18-2022 End: 08-18-[address] [facility] Start: 07-13-2022 Non-patient / Non-visit Dr. Gume Perez Work Phone: [facility] Start: 07-13-2022 End: 07-13-[address] Geoff Perez Work Phone: [facility] Work Phone: Start: 07-13-2022 End: 07-13-[address] Geoff Perez Work Phone: [facility]-Cardiovascular Services Start: 06-30-2022 End: 06-30-2022 ambulatory [facility] Work Phone: Start: 06-30-2022 End: 06-30-2022 [facility] Start: 02-23-2022 End: 02-23-2022 Patient encounter procedure [facility]-Laboratory, [facility] Office 3rd Flr Start: 02-16-2022 End: 02-16-2022 Patient encounter procedure [facility]-Radiology, [facility] Start: 11-29-2021 End: 11-29-2021 Patient encounter procedure [facility]-Laboratory, [place] Start: 11-17-2021 End: 11-17-2021 [facility] Start: 10-29-2021 End: 10-29-2021 Patient encounter procedure [facility]-Laboratory Procedures Date Procedure Procedure Detail Performing Clinician Start: 03-18-2025 SARS-CoV-2, Influenz a & RSV (PCR) Dr. Geoff Perez MD Work Phone: Start: 03-18-2025 X-ray of chest, PA a nd lateral views Dr. Geoff Perez MD Work Phone: Start: 03-18-2025 D-dimer assay, quantitative Dr. Geoff Perez MD Work Phone: Comment on above: NORMAL D-Dimer level (<0.50) indicates no DVT or PE. Start: 02-21-2025 SARS-CoV-2, Influenz a & RSV (PCR) Dr. Geoff Perez MD Work Phone: Start: 01-31-2025 Gram stain microscopy Shree Perez MD Work Phone: Start: 01-31-[address] Geoff Perez MD Work Phone: Start: 01-28-[address] acid assay [address] Geoff Perez MD Work Phone: Start: 01-28-2025 SARS-CoV-2, Influenz a & RSV (PCR) Dr. Geoff Perez MD Work Phone: Start: 01-07-2025 CT angiography of ch est with contrast Dr. Geoff Perez MD Work Phone: Start: 01-06-2025 D-dimer assay, quantitative Dr. Geoff Perez MD Work Phone: Comment on above: D-Dimer ELEVATED (>0 .49): Additional studies and clinicalassessments are indicated to conclude diagnosis of:Deep Vein Thrombosis (DVT) or Pulmonary Embolism (PE) Start: 01-06-2025 SARS-CoV-2, Influenz a & RSV (PCR) Dr. Geoff Perez MD Work Phone: Start: 12-17-2024 SARS-CoV-2, Influenz a & RSV (PCR) Dr. Geoff Perez MD Work Phone: Start: 12-03-2024 Measurement of renal function Dr. Geoff Perez MD Work Phone: Comment on above: GFR Calc Start: 12-03-2024 Vitamin D, 25-hydrox y measurement Dr. Geoff Perez MD Work Phone: Comment on above: Vitamin D 25(OH) Sta tus Range Deficiency <20 ng/mL (50nmol/L) Insufficiency 20 - 30 ng/mL (50 - 75 nmol/L) Sufficiency 30 - 100 ng/mL (75 - 250 nmol/L) Toxicity >100 ng/mL (>250 nmol/L) Start: 12-26-2023 Screening mammography Start: 08-16-2023 CT of head without contrast Start: 06-07-2023 X-ray of chest poste roanterior view Start: 04-21-[address] Geoff asif Work Phone: Start: 04-19-2023 Plain X-ray of shoulder Dr. Geoff Perez Work Phone: Start: 04-19-2023 X-ray of cervical spine Dr. Geoff Perez Work Phone: Start: 02-15-2023 Influenza Types A,B Direct FA ([facility]) Start: 02-15-2023 Respiratory syncytia l virus antigen assay Start: 02-16-2022 X-ray of lumbosacral spine Plan of Treatment Date Care Activity Detail Author Start: 12-26-2023 Dual energy X-ray absorptiometry Dexa Bone Density Study [facility] Start: 12-26-2023 DXA Bone [Mass/Area] Bone density [facility] Start: 04-21-2023 Patient discharge [facility] Colonoscopy [facility] Patient referral [facility] Work Phone: Immunizations Immunization Date Immunization Notes Care Provider Shirley wong 08-07-2015 tetanus toxoid, redu hill diphtheria toxoid, and acellular pertussis vaccine, adsorbed [facility] Payers Date Payer Category Payer Private Health Insurance [id number] 2023 Self-pay [id number] 2016 Private Health Insurance [id number] Medicare [id number] Unknown [id number] Unknown ANTHEM [id number] Unknown [id number] 2.16.8 [id number] Unknown [id number] 2.16.8 [id number] Unknown [id number] 2.16.8 [id number] Unknown [id number] 2.16.8 [id number] Unknown [id number] 2.16.8 [id number] Unknown [id number] 2.16.8 [id number] Unknown [id number] 2.16.8 [id number] Unknown [id number] 2.16.8 [id number] Unknown [id number] 2.16.8 [id number] Unknown [id number] 2.16.8 [id number] Unknown [id number] 2.16.8 [id number] Unknown [id number] 2.16.8 [id number] Unknown [id number] 2.16.8 [id number] Unknown [id number] 2.16.8 [id number] Social History Date Type Detail Facility Start: 03-25-2016 End: 04-17-2023 Tobacco smoking status NMIS Unknown if ever smoked [facility] Start: 1955 Sex Assigned At Female [facility] Start: 04-17-2023 Tobacco smoking status NHIS Never smoked tobacco (finding) [facility] Start: 01-01-2025 End: 01-31-2025 Sex Female (finding) [facility] NEGATED: Highlighted row [facility] Goals Date Patient Goal Desired Activity /State Mental Status Date Assessment Result Facility 04-21-2023 Cognitive function Voice/Name [facility] Work Phone: Radiology Diagnostic study note 03-19-2025 Note Date & Type Note Facility 03-19-2025 Radiology Diagnostic study note [facility] Imaging Services [address] [place] [address] Chest PA and Lateral MR#: [id number] Acct: [id number] Name: CHRIS LARSEN Rep #: [id number] : 1955 F 70 From: Delvis Ashraf MD PCP: Dr. Geoff Perez MD Status: ARGENIS JUSTIN Study:Chest PA and Lateral Date of Exam: 03/18/25 Exam# [id number] Ordering Dr: Geoff Perez MD PROCEDURE: CHEST PA AND LATERAL 03/18/2025 REASON FOR EXAM: SOB TECHNIQUE: Frontal and lateral views of the chest. COMPARISON: 06/07/2023 FINDINGS: The lungs appear clear. The cardiac and mediastinal contours appear within limits. Old appearing right-sided rib fracture deformities. Upper lumbar compression deformity again noted. RAD/Chest PA and Lateral IMPRESSION: No evidence of acute disease. Reading Location: [id number] CC: Dr. Geoff Perez MD ~ Greens Keeper: Signed [facility] Radiology Diagnostic study note 01-07-2025 Note Date & Type Note Facility 01-07-2025 Radiology Diagnostic study note [facility] Imaging Services [address] [place], [place] [address] CTA Chest W/WO Contrast MR#: [id number] Acct: [id number] Name: CHRIS LARSEN Rep #: [id number] : 1955 F 69 From: Aarti Hyde MD PCP: Dr. Geoff Perez MD Status: ARGENIS JUSTIN Study:CTA Chest W/WO Contrast Date of Exam: 01/07/25 Exam# [id number] Ordering Dr: Geoff Perez MD EXAM: CT Angiography Chest Without and With Intravenous Contrast CLINICAL INDICATION: SOB, ELEVATED D-DIMER TECHNIQUE: Axial computed tomographic angiography images of the chest without and with intravenous contrast. This CT exam was performed using one or more of the following dose reduction techniques: automated exposure control, adjustment of the mA and/or kV according to patient size, and/or use of iterative reconstruction technique. MIP reconstructed images were created and reviewed. COMPARISON: No relevant prior studies available. FINDINGS: LIMITATIONS: Suboptimal opacification of the pulmonary arteries. PULMONARY ARTERIES: No pulmonary embolism is identified. Some of the distal pulmonary arteries cannot be evaluated due to suboptimal opacification. AORTA: No acute findings. No thoracic aortic aneurysm. LUNGS AND PLEURAL SPACES: Lung emphysema. Lingular atelectasis or scarring. No mass. No significant effusion. No pneumothorax. HEART: Unremarkable. No cardiomegaly. No significant pericardial effusion. No evidence of RV dysfunction. BONES/JOINTS: No acute fracture. No dislocation. SOFT TISSUES: Unremarkable. LYMPH NODES: Unremarkable. No enlarged lymph nodes. CT/CTA Chest W/WO Contrast IMPRESSION: No pulmonary embolism is identified. Some of the distal pulmonary arteries cannot be evaluated due to suboptimal opacification. [facility] CC: Dr. Geoff Perez MD ~ Greens Keeper: Signed [facility] Procedure note 04-21-2023 Note Date & Type Note Facility 04-21-2023 Procedure note [facility] Procedure note 04-21-2023 Note Date & Type Note Facility 04-21-2023 Procedure note [facility] Evaluation note Note Date & Type Note Facility Evaluation note No assessment information availa ble [facility] Work Phone: Evaluation note Note Date & Type Note Facility Evaluation note Diagnosis Onset Date Positive colorectal cancer s creening using Cologuard test acute [facility] Work Phone: History and physical note Note Date & Type Note Facility History and physical note Note Date/Time April 21, 2023 9:18am [facility] Medical Records Department [address] [place] [address] History & Physical Exam 04/21/23917 MR#: [id number] Acct: [id number] Name: CHRIS LARSEN Rep #:[id number] : 1955 68 From: Richmond hernandez MD PCP: Dr. Geoff Perez MD Status:REG S DC Location: [place] [address] History and Physical Date of Admission: 04/21/23 Intake Vital Signs 03/09/2309:06 Height 5 ft 9 in Weight: 201 lb 2 oz BMI 29.7 BP 128/81 H Blood Pressure Location Rt brachial Position Sitting Respiration 20 H Pulse 58 L Pulse Source Monitor Temp 97.1 F L Temp Source Temporal Pulse Oximetry (%) 99 Oxygen Delivery Method room air Intake Visit Reasons: C-Scope Positive Cologaurd Chief Complaint: c-scope Allergies No Known Allergies Allergy (Verified 03/25/16 16:26) Medications budesonide-formoterol HFA 160 mcg-4.5 mcg/actuation aerosol inhaler (Symbicort) 1 inhaler PO DAILY 08/07/15 [History Confirmed 03/09/23] venlafaxine 75 mg capsule,extended release 24 hr 75 mg PO DAILY 08/07/15 [History Confirmed 03/09/23] PFSH Surgical History (Updated 03/09/23 @ 09:06 by Sakshi Wilcox) Previous section Social History (Updated 03/09/23 @ 09:06 by Sakshi Wilcox) Smoking Status: Never smoker HPI HPI HPI: Patient is a 68-year-old female here for colonoscopy. Patient has never had a colonoscopy in the past. She denies any abdominal pain or blood in the stool. She had a positive Cologuard 2 years ago. She has not had a colonoscopy since. She denies any weight loss or family history of colon cancer. ROS General General: Yes fatigue; No weight change, appetite, colon cancer, breast cancer or weakness HEENT HEENT: No difficulty swallowing, eye injury, eye surgery, swollen glands or hoarseness Endo Endocrine: No thyroid disease, diabetes mellitus, thyroid cancer, Hair loss, heat intolerance or cold intolerance Skin Skin: No rash or changing moles Breast Breast: No left breast lump, right breast lump, nipple discharge, breast pain, abnormal mammogram, abnormal US or breast enlargement Musc Musculoskeletal: No back problems, arthritis, rheumatoid arthritis, gout or joint pain Cardio Cardiovascular: No murmur, pacemaker, heart disease, atrial fibrillation, high blood pressure, heart attack, heart stent, palpitations, shortness of breat withexertion or chest pain Psych Psychiatric: Yes depression; No anxiety or hearing voices Resp Respiratory: No shortness of breath, No sleep apnea, No cough, No COPD, Yes asthma, No emphysema and No wheezing Gastro Gastrointestinal: No abdominal pain, No nausea or vomiting, No diarrhea, No constipation, No blood in stool, No acid reflux, Yes hemorrhoids, No ulcers, No gallbladder problem and No black,tarry stools Antoni Hematologic: No blood thinners, No blood disorders, No bleeding, No anemia and No blood clots Neuro Neurologic: No system reviewed and no additional complaints, except as documented, No as per HPI, No abnormal gait, No abnormal hearing, No abnormal movements, No abnormal speech, No behavioral changes, No burning sensations, No confusion, No convulsions, No disequilibrium, No dizziness, No localized weakness, No frequent falls, No headache(s), No lack of coordination, No loss of vision, No memory loss, No numbness, No other visual disturbances, No radicular pain, No restless legs, No sensory deficit, No syncope, No tingling, No tremor(s), No weakness and No other Exam Const General: cooperative Orientation: alert and oriented x3 HENMT Head: normal to inspection Neck Neck: normal visual inspection and full ROM Chest Chest palpation & inspection: normal inspection of the chest Resp Effort & Inspection: normal respiratory effort Auscultation: clear to auscultation bilaterally Cardio Rate: regular rate Rhythm: regular rhythm GI Inspection: non-distended Palpation: soft and nontender Skin General: no rashes or lesions noted Neuro General: patient alert and patient oriented x3 Extrem General: full ROM Psych Appearance: grossly normal Mental Status: mental status grossly normal Assessment and Plan Assessment and Plan (1) Positive colorectal cancer screening using Cologuard test: Status: Acute Plan: Patient had positive Cologuard test 2 years ago and has not had a scope since. She has never had a scope in the past. Plan for colonoscopy. I explained endoscopy in detail to the patient. I explained the risks includingbut not limited to stroke or heart attack with anesthesia, perforation of the GItract, bleeding, infection. I explained that any of these could necessitate further emergency surgery. The patient understands and all questions were answered sufficiently. The patient wishes to proceed with procedure. Richmond Valdez MD Pager: [facility] [address] [place] [address], [address] [place] [address] Office: I have examined the patient and the H&P has been reviewed. There are no clinicalchanges since date of exam. 04/21/23 0918 <Electronically signed by Richmond Valdez MD> Cosigner Signature (if applicable): CC: Dr. Richmond Valdez MD; Dr. Geoff Perez MD~ Signed [facility] Work Phone: Reason for referral (narrative) Note Date & Type Note Facility Reason for referral (narrative) No reason for referral information available [facility] Work Phone: Chief Complaint and Reason for Visit Chief Complaint AVISE BOX- COPY PCP Chief Complaint BILAT LOWER EXT SWEL LING Chief Complaint SCREENING Chief Complaint SCREENING C-Scope Positive Cologaurd Reason for Visit Positive colorectal cancer screening using Cologuard test Chief Complaint Pleurodynia MILD COGNITIVE IMPAIRMENT Chief Complaint MILD COGNITIVE IMPAI RMENT Chief Complaint SCREENING POST DAVE Chief Complaint Admit Date SOB, ELEVATED D-DIMER January 07, 2025 7 :53am Chief Complaint Admit Date SOB, ELEVATED D-DIMER January 07, 2025 7 :53am LAB AND XRAY March 18, 2025 12:22 pm Advance Directives No Advanced Directives Records Found Advance Directive Response Recorded Date/ Time Living Will No March 25, 2016 5 :00pm Power of Electrician Office No March 25, 2016 5:00pm Advance Directive Response Recorded Date/ Time Name of Medical Power of Electrician Office SPOUSE April 17, 2023 1:23pm Living Will Yes April 17, 2023 1:23pm Power of Electrician Office Yes April 17 1:23pm Advance Directive Response Recorded Date/ Time Living Will Yes April 17, 2023 1:23pm Power of Electrician Office Yes April 17 1:23pm Advance Directive Response Recorded Date/ Time Living Will Yes April 17, 2023 12:23pm Power of Electrician Office Yes April 17 12:23pm Summary Purpose Family History No Family History Records Found Additional Source Comments Goals (unrecognized section and content) Goals may be documented in a n alternate sectionGoals may be documented in an alternate sectionGoals may be documented in an alternate sectionGoals may be documented in an alternate sectionGoals may be documented in an alternate sectionGoals may be documented in an alternate sectionGoals may be documented in an alternate sectionGoals may be documented in an alternate sectionGoals may be documented in an alternate sectionGoals may be documented in an alternate sectionGoals may be documented in an alternate sectionGoals may be documented in an alternate sectionGoals may be documented in an alternate sectionGoals may be documented in an alternate sectionGoals may be documented in an alternate section Care Teams (unrecognized sec tion and content) Team Status: Active Member Role Status Dates Dr. Geoff Perez MD Family Provider Active Dr. Geoff Perez MD Primary Care Provider Active Team Status: Inactive Member Role Status Dates Dr. Geoff Perez MD Primary Care Provi blayne, Attending Provider, Referring Provider Active Team Status: Inactive Member Role Status Dates Dr. Geoff Perez MD Primary Care Provider, Attending Provider Active Team Status: Inactive Member Role Status Dates Dr. Geoff Perez MD Primary Care Provider, Referring Provider Active Dr. Richmond Valdez MD Attending Provider Active Team Status: Active Member Role Status Dates Dr. Geoff Perez MD Primary Care Provider, Referring Provider Active Dr. Richmond Valdez MD Attending Provider, Other Provider Active Team Status: Active Member Role Status Dates Dr. Geoff Perez MD Primary Care Provider, Attending Provider Active Team Status: Inactive Member Role Status Dates Dr. Geoff Perez MD Primary Care Provider Active Start: October 03, 2024 End: October 03, 2024 Dr. Geoff Perez MD Attending Provider Active Start: October 03, 2024 End: October 03, 2024 Team Status: Inactive Member Role Status Dates Dr. Geoff Perez MD Primary Care Provider Active Start: December 03, 2024 End: December 03, 2024 Dr. Geoff Perez MD Attending Provider Active Start: December 03, 2024 End: December 03, 2024 Dr. Geoff Perez MD Referring Provider Active Start: December 03, 2024 End: December 03, 2024 Team Status: Inactive Member Role Status Dates Dr. Geoff Perez MD Primary Care Provider Active Start: December 17, 2024 End: December 17, 2024 Dr. Geoff Perez MD Attending Provider Active Start: December 17, 2024 End: December 17, 2024 Team Status: Active Member Role Status Dates Dr. Geoff Perez MD Primary Care Provider Active Team Status: Inactive Member Role Status Dates Dr. Geoff Perez MD Primary Care Provider Active Start: January 06, 2025 End: January 06, 2025 Dr. Geoff Perez MD Attending Provider Active Start: January 06, 2025 End: January 06, 2025 Team Status: Active Member Role Status Dates Dr. Geoff Perez MD Primary Care Provider Active Start: January 07, 2025 Dr. Geoff Perez MD Attending Provider Active Start: January 07, 2025 Dr. Geoff Perez MD Referring Provider Active Start: January 07, 2025 Team Status: Inactive Member Role Status Dates Dr. Geoff Perez MD Primary Care Provider Active Start: January 07, 2025 End: January 07, 2025 Dr. Geoff Perez MD Attending Provider Active Start: January 07, 2025 End: January 07, 2025 Dr. Geoff Perez MD Referring Provider Active Start: January 07, 2025 End: January 07, 2025 Team Status: Active Member Role Status Dates Dr. Geoff Perez MD Primary Care Provider Active Start: January 28, 2025 Dr. Geoff Perez MD Attending Provider Active Start: January 28, 2025 Dr. Geoff Perez MD Referring Provider Active Start: January 28, 2025 Team Status: Inactive Member Role Status Dates Dr. Geoff Perez MD Primary Care Provider Active Start: January 28, 2025 End: January 28, 2025 Dr. Geoff Perez MD Attending Provider Active Start: January 28, 2025 End: January 28, 2025 Team Status: Inactive Member Role Status Dates Dr. Geoff Perez MD Primary Care Provider Active Start: January 28, 2025 End: January 28, 2025 Dr. Geoff Perez MD Attending Provider Active Start: January 28, 2025 End: January 28, 2025 Dr. Geoff Perez MD Referring Provider Active Start: January 28, 2025 End: January 28, 2025 Team Status: Inactive Member Role Status Dates Dr. Geoff Perez MD Primary Care Provider Active Start: February 21, 2025 End: February 21, 2025 Dr. Geoff Perez MD Attending Provider Active Start: February 21, 2025 End: February 21, 2025 Dr. Geoff Perez MD Referring Provider Active Start: February 21, 2025 End: February 21, 2025 Team Status: Inactive Member Role Status Dates Dr. Geoff Perez MD Primary Care Provider Active Start: March 18, 2025 End: March 18, 2025 Dr. Geoff Perez MD Attending Provider Active Start: March 18, 2025 End: March 18, 2025 Dr. Geoff Perez MD Referring Provider Active Start: March 18, 2025 End: March 18, 2025 INFORMATION SOURCE (unrecogn ized section and content) DATE CREATED AUTHOR 03/21/2025 [facility] FOR RECORDS PERTAINING TO PATIENTS WHO ARE OR HAVE BEEN ENROLLED IN A CHEMICAL DEPENDENCY/SUBSTANCEABUSE PROGRAM, SOME INFORMATION MAY BE OMITTED. This clinical summary was aggregated from multiple sources. Caution should be exercised in using it in the provision of clinical care. This summary normalizes information from multiple sources, and as a consequence, information in this document may materially change the coding, format and clinical context of patient data. In addition, data may be omitted in some cases. CLINICAL DECISIONS SHOULD BE BASED ON THE PRIMARY CLINICAL RECORDS. [facility]. provides no warranty or guarantee of the accuracy or completeness of information in this document.
--- NOTE | 2025-04-06 15:33 | CPS ---
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
[2025-04-06] MEDS: MethylPREDNISolone 125 MG/2 ML Vial IV (15:39)
[2025-04-06 15:40] LABS: Anion Gap 11 (5-15); BUN 8 mg/dL (4-19); BUN/Creat Ratio 11.7 RATIO (10-20); Calcium,Total 9.4 mg/dL (7.6-11.0); Carbon Dioxide 25.7 mmol/L (21.0-32.0); Chloride 104 mmol/L (98-108); Creatinine, Serum 0.68 mg/dL (0.70-1.20); EST Glomerular Filtration Rate 94 (>60); Estimated Creatinine Clearance 77.95 ml/min (50-250); Glucose 121 mg/dL (70-99); Potassium 3.9 mmol/L (3.3-5.1); Sodium Level 141 mmol/L (133-145)
--- NOTE | 2025-04-06 15:50 | RAD_ITS ---
PROCEDURE: CHEST 1 VIEW (PORTABLE) 04/06/2025 REASON FOR EXAM: DYSPNEA TECHNIQUE: Frontal view of the chest. COMPARISON: Chest radiograph 03/18/2025. FINDINGS: Hardware: None. Heart: The heart size is normal. Lungs: No focal consolidation, pleural effusion or pneumothorax. Bones: Degenerative changes are identified within the thoracic spine. Chronic healed right rib fracture deformities. RAD/Chest 1 View (Portable) IMPRESSION: No Acute Findings. Reading Location: [id number]
[2025-04-06 16:01] LABS: Troponin T High Sensitivity 8 ng/L (<=14)
--- NOTE | 2025-04-06 16:17 | CPS ---
Patient declined third albuterol breathing tx
--- NOTE | 2025-04-06 18:10 | ED.RN ---
PT O2 LEVEL WHILE RESTING IN BED IS 93%. ADJUSTING PATIENT TO STAND AT THE SIDE OF THE BED O2 SATS DROPPED TO 89%. WHILE AMBULATING DROPPED TO 88% WITH A HR OF 121. NOTIFIED. HOSPITALIST PAGED PER PHYSICIAN REQUEST
--- OUTSIDE RECORDS SUMMARY | 2025-04-06 18:38 | XMS RPT_ITS | CCD ---
Author Organization [facility] Care Team Providers Care Trial Justice Name Role Phone Dr. Geoff Perez Chi Primary Care Provider Dr. Livan Gramajo Attending Provider Dr. Shay Roland Referring Provider Dr. Geoff Perez Chi Primary Care Provider Chris, Dr. Geoff Gill Referring Provider Dr. Richmond Valdez Attending Provider Dr. Richmond Valdez Other Provider Chris GRAY, Dr. Geoff Gill Primary [...] Auto (Unsp spec) [#/Vol] 1.10 10*3/uL 0.83-4.51 [facility] Absolute neutrophil countOrd ered By: Geoff Perez on 03-18-2025 Neutrophils (Bld) [#/Vol] 4.6 10*3/uL 2.0-7.7 [facility] Anion gap in Serum or Plasma Ordered By: Geoff Perez on 03-18-2025 Anion gap [Moles/Vol] 12 mmol/L 03-06 [facility] Automated lymphocyte count a s percentage of total leukocytesOrdered By: Geoff Perez on 03-18-2025 Lymphocytes/100 WBC Auto (Unsp spec) 16.2 % Low 19-41 [facility] BUN/creatinine ratioOrdered By: Geoff Perez on 03-18-2025 Urea nitrogen/Creatinine [Mass ratio] 11.2 mg/mg - [facility] Basic Metabolic Profile (BMP )on 03-18-2025 BUN/CRE 11.2 RATIO Normal 08-11 [facility] Comment on above: Performed By: #### M , #### [facility] [address] [place], [address] Calcium [Mass/Vol] 9.2 mg/dL Normal 7.6-11.0 [facility] Comment on above: Performed By: #### M , #### [facility] [address] [place], [address] Chloride [Moles/Vol] 106 mmol/L Normal 98-108 [facility] Comment on above: Performed By: #### M , #### [facility] [address] [place], [address] CO2 [Moles/Vol] 23.1 mmol/L Normal 21.0-32.0 [facility] Comment on above: Performed By: #### M , #### [facility] [address] [place], [address] Creatinine [Mass/Vol] 0.69 mg/dL Low 0.70-1.20 [facility] Comment on above: Performed By: #### M , #### [facility] [address] [place], [address] GAP 12 Normal 5-15 [facility] Comment on above: Performed By: #### M , #### [facility] [address] [place], [address] GFR/1.73 sq M.predicted among non-blacks MDRD (S/P/Bld) [Vol rate/Area] 94 mL/min/{1.73_m2} Normal >60 [facility] Comment on above: Result Comment: mL/m in/1.73m2 CKD-EPI Creatinine Equation (2020) Performed By: #### M , #### [facility] [address] [place], [address] Glucose [Mass/Vol] 101 mg/dL High 70-99 [facility] Comment on above: Performed By: #### M , #### [facility] [address] [place], [address] Potassium [Moles/Vol] 4.1 mmol/L Normal 3.3-5.1 [facility] Comment on above: Performed By: #### M , #### [facility] [address] [place], [address] Sodium [Moles/Vol] 141 mmol/L Normal 133-145 [facility] Comment on above: Performed By: #### M , #### [facility] [address] [place], [address] Urea nitrogen [Mass/Vol] 8 mg/dL Normal 4-19 [facility] Comment on above: Performed By: #### M , #### [facility] [address] [place], [address] Basophil percentageOrdered B y: Geoff Perez on 03-18-2025 Basophils/100 WBC (Bld) 0.7 % 0-1 [facility] CBC W/Diff, Automatedon 02-21 Absolute Lymph 1.10 X10 3/uL Normal 0.83-4.51 [facility] Comment on above: Performed By: #### M , #### [facility] [address] [place], [address] Absolute Neut 4.6 X10 3/uL Normal 2.0-7.7 [facility] Comment on above: Performed By: #### M , #### [facility] [address] [place], [address] Basophils/100 WBC (Bld) 0.7 % Normal 0-1 [facility] Comment on above: Performed By: #### M , #### [facility] [address] [place], [address] Eosinophils/100 WBC (Bld) 5.0 % Normal 0-5 [facility] Comment on above: Performed By: #### M , #### [facility] [address] [place], [address] Erythrocyte distribution width (RBC) [Ratio] 13.4 % Normal 11.6-14.6 [facility] Comment on above: Performed By: #### M , #### [facility] [address] [place], [address] Hematocrit (Bld) [Volume fraction] 43.7 % Normal 37-47 [facility] Comment on above: Performed By: #### M , #### [facility] [address] [place], [address] Hemoglobin (Bld) [Mass/Vol] 14.8 g/dL Normal 12.0-15.0 [facility] Comment on above: Performed By: #### M , #### [facility] [address] [place], [address] IG% 0.300 Normal 0.0-0.9 [facility] Comment on above: Result Comment: IG% - Immature Granulocytes (promyelocytes, myelocytes and metamyelocytes) > 1% indicates that a LEFT SHIFT is Present. Performed By: #### M , #### [facility] [address] [place], [address] Lymphocytes/100 WBC (Bld) 16.2 % Low 19-41 [facility] Comment on above: Performed By: #### M , #### [facility] [address] [place], [address] MCH (RBC) [Entitic mass] 29.0 pg Normal 27.0-32.0 [facility] Comment on above: Performed By: #### M , #### [facility] [address] [place], [address] MCHC (RBC) [Mass/Vol] 33.9 g/dL Normal 32-36 [facility] Comment on above: Performed By: #### M , #### [facility] [address] [place], [address] MCV (RBC) [Entitic vol] 85.5 fL Normal 81-99 [facility] Comment on above: Performed By: #### M , #### [facility] [address] [place], [address] Monocytes/100 WBC (Bld) 9.9 % Normal 0-10 [facility] Comment on above: Performed By: #### M , #### [facility] [address] [place], [address] Neutrophils/100 WBC (Bld) 67.9 % Normal 47-70 [facility] Comment on above: Performed By: #### M , #### [facility] [address] [place], [address] Nucleated RBC (Bld) [#/Vol] 0 10*3/uL Normal 0-5 [facility] Comment on above: Performed By: #### M , #### [facility] [address] [place], [address] Platelet mean volume (Bld) [Entitic vol] 8.5 fL Normal 6.2-12.0 [facility] Comment on above: Performed By: #### M , #### [facility] [address] [place], [address] Platelets (Bld) [#/Vol] 243 10*3/uL Normal 150-450 [facility] Comment on above: Performed By: #### M , #### [facility] [address] [place], [address] RBC (Bld) [#/Vol] 5.11 10*6/uL Normal 4.2-5.4 [facility] Comment on above: Performed By: #### M , #### [facility] [address] [place], [address] RDW SD 41.7 fl Normal 35.1-43.9 [facility] Comment on above: Performed By: #### M 100, M100.2400 #### [facility] [address] [place], [address] WBC (Bld) [#/Vol] 6.8 10*3/uL Normal 4.4-11.0 [facility] Comment on above: Performed By: #### M 100.1999, M100.2400 #### [facility] [address] [place], [address] Carbon dioxide, total [Moles /volume] in Central venous bloodOrdered By: Geoff Perez on 03-18-2025 CO2 [Moles/Vol] 23.1 mmol/L 21.0-32.0 [facility] Chest PA and Lateralon 03-18 Chest PA and Lateral [facility] [address] [place] [address] Chest PA and Lateral MR#: [id number] Acct: [id number] Name: CHRIS LARSEN Rep #: [id number] : 1955 F 70 From: Livan Ashraf MD PCP: Dr. Geoff Perez MD Status: REG CLI Study: Chest PA and Lateral Date of Exam: 03/18/25 Exam# [id number] Ordering Dr: Geoff Perez MD PROCEDURE: CHEST PA AND LATERAL 03/18/2025 REASON FOR EXAM: SOB TECHNIQUE: Frontal and lateral views of the chest. COMPARISON: 06/07/2023 FINDINGS: The lungs appear clear. The cardiac and mediastinal contours appear within limits. Old appearing right-sided rib fracture deformities. Upper lumbar compression deformity again noted. RAD/Chest PA and Lateral IMPRESSION: No evidence of acute disease. Reading Location: [facility] CC: Dr. Geoff Perez MD Communications Professor: Signed Normal [facility] Chloride assayOrdered By: Gume Perez on 03-18-2025 Chloride [Moles/Vol] 106 mmol/L 98-108 [facility] D-Dimer Quantitative (DVT/PE )on 03-18-2025 D-DIMER QUANT 0.38 FEU/ug/m Normal 0.27-0.49 [facility] Comment on above: Result Comment: NORM AL D-Dimer level (<0.50) indicates no DVT or PE. Performed By: #### M 100.2000, M100.2400 #### [facility] [address] [place], [address] Eosinophil percentageOrdered By: Geoff Perez on 03-18-2025 Eosinophils/100 WBC (Bld) 5.0 % 0-5 [facility] Erythrocyte distribution wid th ratioOrdered By: [facility] on 03-18-2025 Erythrocyte distribution width (RBC) [Ratio] 13.4 % 11.6-14.6 [facility] Erythrocyte distribution wid th standard deviationOrdered By: [facility] on 03-18-2025 Erythrocyte distribution width (RBC) [Ratio] 41.7 fl 35.1-43.9 [facility] Glomerular filtration rate ( GFR) estimation/1.73 sq m using serum, plasma, or whole bOrdered By: [facility] on 03-18-2025 GFR/1.73 sq M.predicted among non-blacks MDRD (S/P/Bld) [Vol rate/Area] 94 mL/min/{1.73_m2} >60 [facility] Comment on above: mL/min/1.73m2 CKD-EP I Creatinine Equation (2020) Hematocrit Auto (Bld) [Volum e fraction]Ordered By: Geoff Perez on 03-18-2025 Hematocrit (Bld) [Volume fraction] 43.7 % 37-47 [facility] Hemoglobin measurementOrdere d By: Geoff Chris on 03-18-2025 Hemoglobin (Bld) [Mass/Vol] 14.8 g/dL 12.0-15.0 [facility] Immature granulocytes/100 WB C Auto (Bld)Ordered By: Geoff Perez on 03-18-2025 Immature granulocytes/100 WBC (Bld) 0.300 % 0.0-0.9 [facility] Comment on above: IG% - Immature Granu locytes (promyelocytes, myelocytes and metamyelocytes) > 1% indicates that a LEFT SHIFT is Present. Influenza virus A and B and SARS-CoV-2 (COVID-19) and Respiratory syncytial virus RNAOrdered By: Geoff Perez on 03-18-2025 SARS-CoV-2 (COVID-19) RNA MAVERICK+probe Ql (Unsp spec) [facility] M100.678on 03-18-2025 M100.678 Pending SARS-CoV-2 (COVID 19) Negative INFLUENZA A Negative INFLUENZA B Negative RSV PCR Negative Normal [facility] Comment on above: Performed By: #### M 100.678 #### [facility] [address] [place] [address]. [place], [address] MCV (mean corpuscular volume ) determinationOrdered By: Geoff Perez on 03-18-2025 MCV (RBC) [Entitic vol] 85.5 fL 81-99 [facility] Mean corpuscular hemoglobin (MCH) determinationOrdered By: Geoff Perez on 03-18-2025 MCH (RBC) [Entitic mass] 29.0 pg 27.0-32.0 [facility] Mean corpuscular hemoglobin concentration (MCHC) determinationOrdered By: Geoff Perez on 03-18-2025 MCHC (RBC) [Mass/Vol] 33.9 g/dL 32-36 [facility] Mean platelet volume determi nationOrdered By: Geoff Perez on 03-18-2025 Platelet mean volume (Bld) [Entitic vol] 8.5 fL 6.2-12.0 [facility] Monocyte percentageOrdered B y: Geoff Perez on 03-18-2025 Monocytes/100 WBC (Bld) 9.9 % 0-10 [facility] Neutrophil percentageOrdered By: Geoff Perez on 03-18-2025 Neutrophils/100 WBC (Bld) 67.9 % 47-70 [facility] Nucleated red blood cell per centageOrdered By: Geoff Perez on 03-18-2025 Nucleated RBC/100 WBC (Bld) [Ratio] 0 % 0-5 [facility] Platelet countOrdered By: Gume Perez on 03-18-2025 Platelets (Bld) [#/Vol] 243 10*3/uL 150-450 [facility] Potassium measurement (mass/ volume)Ordered By: Geoff Perez on 03-18-2025 Potassium (Unsp spec) [Mass/Vol] 4.1 mmol/L 3.3-5.1 [facility] RBC Auto (Bld) [#/Vol]Ordere d By: Geoff Perez on 03-18-2025 RBC (Bld) [#/Vol] 5.11 10*6/uL 4.2-5.4 [facility] Serum creatinine measurement (mass/volume)Ordered By: Geoff Perez on 03-18-2025 Creatinine [Mass/Vol] 0.69 mg/dL Low 0.70-1.20 [facility] Serum glucose measurement (m ass/volume)Ordered By: Geoff Perez on 03-18-2025 Glucose [Mass/Vol] 101 mg/dL High 70-99 [facility] Serum or plasma calcium manoj urement (mass/volume)Ordered By: Geoff Perez on 03-18-2025 Calcium [Mass/Vol] 9.2 mg/dL 7.6-11.0 [facility] Serum or plasma urea nitroge n measurement (mass/volume)Ordered By: Geoff Perez on 03-18-2025 Urea nitrogen [Mass/Vol] 8 mg/dL 4-19 [facility] Sodium levelOrdered By: Geoff Perez on 03-18-2025 Sodium [Moles/Vol] 141 mmol/L 133-145 [facility] White blood cell (WBC) count Ordered By: Geoff Perez on 03-18-2025 WBC (Bld) [#/Vol] 6.8 10*3/uL 4.4-11.0 [facility] Influenza virus A and B and SARS-CoV-2 (COVID-19) and Respiratory syncytial virus RNAOrdered By: Geoff Perez on 02-21-2025 SARS-CoV-2 (COVID-19) RNA MAVERICK+probe Ql (Unsp spec) [facility] M100.678on 02-21-2025 M100.678 Pending SARS-CoV-2 (COVID 19) Negative INFLUENZA A Negative INFLUENZA B Negative RSV PCR Negative Normal [facility] Comment on above: Performed By: #### M 100.2000, M100.2400 #### [facility] [address] [place], [address] Respiratory Cultureon 2024 RESPC GRAM STAIN Mixed normal respiratory nikolas. No Streptococcus pneumoniae, beta-hemolytic Streptococcus or Staphylococcus aureus isolated. Normal [facility] Comment on above: Performed By: #### M 100.1999, M1.2400 #### [facility] [address] [place], [address] Gram Stainon 01-31-2025 GS GRAM STAIN Acceptable Specimen? Yes (<25 Epithelial cells per/lpf) Gram Stain 1+ Gram positive cocci 1+ Epithelial cells 1+ White Blood Cells Normal [facility] Comment on above: Performed By: #### M 100.1999, .0 #### [facility] [address] [place], [address] Gram stainOrdered By: Geoff asif on 01-31-2025 Microscopic observation Gram stain Nom (Unsp spec) [facility] Microbial respiratory cultur eOrdered By: Geoff Perez on 01-31-2025 Microorganism identified Cx Nom (Unsp spec) or Staphylococcus aureus isolated. [facility] Influenza virus A and B and SARS-CoV-2 (COVID-19) and Respiratory syncytial virus RNAOrdered By: Geoff Perez on 01-28-2025 SARS-CoV-2 (COVID-19) RNA MAVERICK+probe Ql (Unsp spec) [facility] M100.678on 01-28-2025 M100.678 Pending SARS-CoV-2 (COVID 19) Negative INFLUENZA A Negative INFLUENZA B Negative RSV PCR Negative Normal [facility] Comment on above: Performed By: #### M 100.678 #### [facility] [address] [place], [address] M8200.1000on 01-28-2025 M8200.1000 Normal Reference Ran ge = Negative MRSA DNA Nose Ql MAVERICK+probe GeneXpert Instrument, PCR method MRSA PCR MRSA NEGATIVE Normal [facility] Comment on above: Performed By: #### M 100.1999, M100.2400 #### [facility] [address] [facility] [place], [place], [address] MRSA DNA MAVERICK+probe Ql (Nose) Ordered By: Geoff Perez on 01-28-2025 MRSA (PCR) [facility] Nasal methicillin resistant Staphylococcus aureus (MRSA) DNA detection by PCROrdered By: Geoff Perez on 01-28-2025 MRSA DNA MAVERICK+probe Ql (Nose) [facility] CTA Chest W/WO Contraston CTA Chest W/WO Contrast [facility] [address] [place] [address] CTA Chest W/WO Contrast MR#: [id number] Acct: [id number] Name: CHRIS LARSEN Rep #: [id number] : 1955 F 69 From: Glen Hyde MD PCP: Dr. Geoff Perez MD Status: REG CLI Study: CTA Chest W/WO Contrast Date of Exam: 01/07/25 Exam# [id number] Ordering Dr: Geoff Perez MD EXAM: CT [...] [facility] CC: Dr. Geoff Perez MD Communications Professor: Signed Normal [facility] D-Dimer Quantitative (DVT/PE )on 01-06-2025 D-DIMER QUANT 0.50 FEU/ug/m High 0.27-0.49 [facility] Comment on above: Order Comment: CRITI REBEKAH VALUE CALLED TO JYOTI GARCIA01/06/25 1606 Silvana Giron.RESULTS READ BACK BY SAME. Result Comment: D-Di salma ELEVATED (>0.49): Additional studies and clinical assessments are indicated to conclude diagnosis of: Deep Vein Thrombosis (DVT) or Pulmonary Embolism (PE) Performed By: #### M , #### [facility] [address] [facility] [place], [address] D-dimer measurement for deep venous thrombosisOrdered By: Geoff Perez on 01-06-2025 D-Dimer Quantitative (PE/DVT) 0.50 FEU/ug/m High 0.27-0.49 [facility] Comment on above: D-Dimer ELEVATED (>0 .49): Additional studies and clinicalassessments are indicated to conclude diagnosis of:Deep Vein Thrombosis (DVT) or Pulmonary Embolism (PE) Influenza virus A and B and SARS-CoV-2 (COVID-19) and Respiratory syncytial virus RNAOrdered By: Geoff Perez on 01-06-2025 SARS-CoV-2 (COVID-19) RNA MAVERICK+probe Ql (Unsp spec) [facility] M100.678on 01-06-2025 M100.678 Pending SARS-CoV-2 (COVID 19) Negative INFLUENZA A Negative INFLUENZA B Negative RSV PCR Negative Normal [facility] Comment on above: Performed By: #### M , #### [facility] [address] [place], [place], [address] Influenza virus A and B and SARS-CoV-2 (COVID-19) and Respiratory syncytial virus RNAOrdered By: Geoff Perez on 12-17-2024 SARS-CoV-2 (COVID-19) RNA MAVERICK+probe Ql (Unsp spec) [facility] M100.678on 12-17-2024 M100.678 SARS-CoV-2 (COVID 19 ) Negative INFLUENZA A Negative INFLUENZA B Negative RSV PCR Negative Normal [facility] Comment on above: Performed By: #### M 100.2000, M100.2400 #### [facility] [place], [address] [id number]-[id number] DOrdered By: Zan Perez on 12-03-2024 Vitamin D 25-Hydroxy 30.5 ng/mL [facility] Comment on above: Vitamin D 25(OH) Sta tus Range Deficiency <20 ng/mL (50nmol/L) Insufficiency 20 - 30 ng/mL (50 - 75 nmol/L) Sufficiency 30 - 100 ng/mL (75 - 250 nmol/L) Toxicity >100 ng/mL (>250 nmol/L) Absolute lymphocyte countOrd ered By: Geoff Perez on 12-03-2024 Lymphocytes Auto (Unsp spec) [#/Vol] 1.63 10*3/uL 0.83-4.51 [facility] Absolute neutrophil countOrd ered By: Geoff Perez on 12-03-2024 Neutrophils (Bld) [#/Vol] 5.7 10*3/uL 2.0-7.7 [facility] Albumin to globulin ratioOrd ered By: Geoff Perez on 12-03-2024 Albumin/Globulin [Mass ratio] 1.1 {ratio} 0.9-2.4 [facility] Automated lymphocyte count a s percentage of total leukocytesOrdered By: Geoff Perez on 12-03-2024 Lymphocytes/100 WBC Auto (Unsp spec) 19.6 % 19-41 [facility] Basophil percentageOrdered B y: Geoff Perez on 12-03-2024 Basophils/100 WBC (Bld) 0.4 % 0-1 [facility] Bilirubin, totalOrdered By: Geoff Perez on 12-03-2024 Bilirubin [Mass/Vol] 0.60 mg/dL 0.20-1.00 [facility] Comment on above: For patients on eltr ombopag therapy, use of Dimension [place] TBIL is not recommended. Blood urea nitrogen (BUN)/cr eatinine ratioOrdered By: Geoff Perez on 12-03-2024 Urea nitrogen/Creatinine [Mass ratio] 16.7 mg/mg 10-20 [facility] CBC W/Diff, Automatedon 11-23 Absolute Lymph 1.63 X10 3/uL Normal 0.83-4.51 [facility] Comment on above: Performed By: #### M 100.678 #### [facility] [address] [place], [address] Absolute Neut 5.7 X10 3/uL Normal 2.0-7.7 [facility] Comment on above: Performed By: #### M 100.678 #### [facility] [address] [place], [address] Basophils/100 WBC (Bld) 0.4 % Normal 0-1 [facility] Comment on above: Performed By: #### M 100.678 #### [facility] [address] [place], [address] Eosinophils/100 WBC (Bld) 2.4 % Normal 0-5 [facility] Comment on above: Performed By: #### M 100.678 #### [facility] [address] [place], [address] Erythrocyte distribution width (RBC) [Ratio] 13.1 % Normal 11.6-14.6 [facility] Comment on above: Performed By: #### M 100.678 #### [facility] [address] [place], [address] Hematocrit (Bld) [Volume fraction] 43.7 % Normal 37-47 [facility] Comment on above: Performed By: #### M 100.678 #### [facility] [address] [place], [address] Hemoglobin (Bld) [Mass/Vol] 14.3 g/dL Normal 12.0-15.0 [facility] Comment on above: Performed By: #### M 100.678 #### [facility] [address] [place], [address] IG% 0.200 Normal 0.0-0.9 [facility] Comment on above: Result Comment: IG% - Immature Granulocytes (promyelocytes, myelocytes and metamyelocytes) > 1% indicates that a LEFT SHIFT is Present. Performed By: #### M 100.678 #### [facility] [address] [place], [address] Lymphocytes/100 WBC (Bld) 19.6 % Normal 19-41 [facility] Comment on above: Performed By: #### M 100.678 #### [facility] [address] [place], [address] MCH (RBC) [Entitic mass] 28.5 pg Normal 27.0-32.0 [facility] Comment on above: Performed By: #### M 100.678 #### [facility] [address] [place], [address] MCHC (RBC) [Mass/Vol] 32.7 g/dL Normal 32-36 [facility] Comment on above: Performed By: #### M 100.678 #### [facility] [address] [place], [address] MCV (RBC) [Entitic vol] 87.1 fL Normal 81-99 [facility] Comment on above: Performed By: #### M 100.678 #### [facility] [address] [place], [address] Monocytes/100 WBC (Bld) 9.0 % Normal 0-10 [facility] Comment on above: Performed By: #### M 100.678 #### [facility] [address] [place], [address] Neutrophils/100 WBC (Bld) 68.4 % Normal 47-70 [facility] Comment on above: Performed By: #### M 100.678 #### [facility] [address] [place], [address] Nucleated RBC (Bld) [#/Vol] 0 10*3/uL Normal 0-5 [facility] Comment on above: Performed By: #### M 100.678 #### [facility] [address] [place], [address] Platelet mean volume (Bld) [Entitic vol] 8.6 fL Normal 6.2-12.0 [facility] Comment on above: Performed By: #### M 100.678 #### [facility] [address] [place], [address] Platelets (Bld) [#/Vol] 278 10*3/uL Normal 150-450 [facility] Comment on above: Performed By: #### M 100.678 #### [facility] [address] [place], [address] RBC (Bld) [#/Vol] 5.02 10*6/uL Normal 4.2-5.4 [facility] Comment on above: Performed By: #### M 100.678 #### [facility] [address] [place], [address] RDW SD 41.1 fl Normal 35.1-43.9 [facility] Comment on above: Performed By: #### M 100.678 #### [facility] [address] [place], [address] WBC (Bld) [#/Vol] 8.3 10*3/uL Normal 4.4-11.0 [facility] Comment on above: Performed By: #### M 100.678 #### [facility] [address] [place], [address] Carbon dioxide measurementOr dered By: Geoff Perez on 12-03-2024 CO2 [Moles/Vol] 24.0 mmol/L 21.0-32.0 [facility] Chloride measurementOrdered By: Geoff Perez on 12-03-2024 Chloride [Moles/Vol] 107 mmol/L 98-107 [facility] Comprehensive Metabolic Prof ilon 12-03-2024 Albumin [Mass/Vol] 3.6 g/dL Normal 3.2-5.0 [facility] Comment on above: Performed By: #### M , #### [facility] [address] [place], [address] Albumin/Globulin [Mass ratio] 1.1 {ratio} Normal 0.9-2.4 [facility] Comment on above: Performed By: #### M , #### [facility] [address] [place], [address] ALK P 92 U/L Normal 45-117 [facility] Comment on above: Performed By: #### M , #### [facility] [address] [place], [address] ALT [Catalytic activity/Vol] 20 U/L Normal 13-56 [facility] Comment on above: Performed By: #### M , #### [facility] [address] [place], [address] AST [Catalytic activity/Vol] 22 U/L Normal 15-37 [facility] Comment on above: Performed By: #### M , #### [facility] [address] [place], [address] Bilirubin [Mass/Vol] 0.60 mg/dL Normal 0.20-1.00 [facility] Comment on above: Result Comment: For patients on eltrombopag therapy, use of Dimension [place] TBIL is not recommended. Performed By: #### M , #### [facility] [address] [place], [address] BUN/CRE 16.7 RATIO Normal 10-20 [facility] Comment on above: Performed By: #### M , #### [facility] [address] [place], [address] CA,Total 8.6 mg/dL Normal 8.5-10.1 [facility] Comment on above: Performed By: #### M , #### [facility] [address] [place], [address] Chloride [Moles/Vol] 107 mmol/L Normal 98-107 [facility] Comment on above: Performed By: #### M , #### [facility] [address] [place], [address] CO2 [Moles/Vol] 24.0 mmol/L Normal 21.0-32.0 [facility] Comment on above: Performed By: #### M , #### [facility] [address] [place], [address] Creatinine [Mass/Vol] 0.72 mg/dL Normal 0.55-1.02 [facility] Comment on above: Result Comment: The validity of the calculated GFR GFRAA in patients over 70 years has not been determined. Clinical correlation is essential. Performed By: #### M , #### [facility] [address] [place], [address] EST GFR - AA 104 mL/min Normal >60 [facility] Comment on above: Result Comment: Afri can Turkish GFR Calc Performed By: #### M , #### [facility] [address] [place], [address] GAP 8 Normal 5-15 [facility] Comment on above: Performed By: #### M , #### [facility] [address] [place], [address] GFR/1.73 sq M.predicted among non-blacks MDRD (S/P/Bld) [Vol rate/Area] 86 mL/min/{1.73_m2} Normal >60 [facility] Comment on above: Result Comment: Non- GFR Calc Performed By: #### , #### [facility] [address] [place], [address] Globulin (S) [Mass/Vol] 3.4 g/dL Normal 2.2-4.2 [facility] Comment on above: Performed By: #### M , #### [facility] [address] [place], [address] Glucose [Mass/Vol] 89 mg/dL Normal 74-106 [facility] Comment on above: Performed By: #### M , #### [facility] [address] [place], [address] Potassium [Moles/Vol] 4.1 mmol/L Normal 3.5-5.1 [facility] Comment on above: Performed By: #### M , #### [facility] [address] [place], [address] Sodium [Moles/Vol] 138 mmol/L Normal 136-145 [facility] Comment on above: Performed By: #### M , #### [facility] [address] [place], [address] T PROT 7.0 g/dL Normal 6.4-8.2 [facility] Comment on above: Performed By: #### M .1999, M1.2400 #### [facility] [address] [place], [place], [address] Urea nitrogen [Mass/Vol] 12 mg/dL Normal 7-18 [facility] Comment on above: Performed By: #### M 100.1999, M1.2400 #### [facility] [address] [place], [address] Eosinophil percentageOrdered By: Geoff Perez on 12-03-2024 Eosinophils/100 WBC (Bld) 2.4 % 0-5 [facility] Erythrocyte distribution wid th ratioOrdered By: Geoff Perez on 12-03-2024 Erythrocyte distribution width (RBC) [Ratio] 13.1 % 11.6-14.6 [facility] Erythrocyte distribution wid th standard deviationOrdered By: Geoff Perez on 12-03-2024 Erythrocyte distribution width (RBC) [Entitic vol] 41.1 fL 35.1-43.9 [facility] Erythrocyte distribution width (RBC) [Ratio] 41.1 fl 35.1-43.9 [facility] Estimated glomerular filtrat ion rate (GFR) AmericanOrdered By: Geoff Perez on 12-03-2024 Estimated GFR (MDRD) Amer 104 mL/min >60 [facility] Comment on above: GFR Calc Glomerular filtration rate ( GFR) estimationOrdered By: Geoff Perez on 12-03-2024 Estimated GFR (MDRD) Non-Af Amer 86 mL/min >60 [facility] Comment on above: Non- GFR Calc GFR/1.73 sq M.predicted among non-blacks MDRD (S/P/Bld) [Vol rate/Area] 86 mL/min/{1.73_m2} >60 [facility] Comment on above: Non- GFR Calc Glucose measurementOrdered B y: Geoff Perez on 12-03-2024 Glucose [Mass/Vol] 89 mg/dL 74-106 [facility] Hematocrit Auto (Bld) [Volum e fraction]Ordered By: Geoff Perez on 12-03-2024 Hematocrit (Bld) [Volume fraction] 43.7 % 37-47 [facility] Hemoglobin measurementOrdere d By: Geoff Perez on 12-03-2024 Hemoglobin (Bld) [Mass/Vol] 14.3 g/dL 12.0-15.0 [facility] High density lipoprotein (HD L) measurementOrdered By: Geoff Perez on 12-03-2024 Cholesterol in HDL [Mass/Vol] 68 mg/dL >40 [facility] Comment on above: The drugs N-Acetylcy steine and Metamizole may falsely depress this assay. Reference Range HDL <40 mg/dL Low HDL Cholesterol HDL >or= 60 mg/dL High HDL Cholesterol Immature granulocytes/100 WB C Auto (Bld)Ordered By: Geoff Perez on 12-03-2024 Immature granulocytes/100 WBC (Bld) 0.200 % 0.0-0.9 [facility] Comment on above: IG% - Immature Granu locytes (promyelocytes, myelocytes and metamyelocytes) > 1% indicates that a LEFT SHIFT is Present. Laboratory - Chemistry and C hemistry - challengeOrdered By: Geoff Perez on 12-03-2024 AST [Catalytic activity/Vol] 22 U/L 15-37 [facility] Lipid Profileon 12-03-2024 Cholesterol [Mass/Vol] 199 mg/dL Normal 200 [facility] Comment on above: Result Comment: <200 mg/dL Desirable 200-240 mg/dL Borderline >240 mg/dL High Risk Performed By: #### M , #### [facility] [address] [place], [place], [address] Cholesterol in HDL [Mass/Vol] 68 mg/dL Normal [facility] Comment on above: Result Comment: The drugs N-Acetylcysteine and Metamizole may falsely depress this assay. Reference Range HDL <40 mg/dL Low HDL Cholesterol HDL >or= 60 mg/dL High HDL Cholesterol Performed By: #### M , #### [facility] [address] [place], [address] Cholesterol in LDL [Mass/Vol] 107 mg/dL Normal 0-130 [facility] Comment on above: Performed By: #### M , #### [facility] [address] [place], [address] Cholesterol in VLDL [Mass/Vol] 24 mg/dL Normal 5-40 [facility] Comment on above: Performed By: #### M , #### [facility] [address] [place], [address] Triglyceride [Mass/Vol] 122 mg/dL Normal [facility] Comment on above: Result Comment: The drugs N-Acetylcysteine and Metamizole may falsely depress this assay. Serum Triglycerides Reference Interval Normal <150 mg/dL Borderline high 150 - 199 mg/dL High 200 - 499 mg/dL Very High > or = 500 mg/dL Performed By: #### M , #### [facility] [address] [place], [address] Low density lipoprotein (LDL ) cholesterol measurementOrdered By: Geoff Perez on 12-03-2024 Cholesterol in LDL [Mass/Vol] 107 mg/dL 0-130 [facility] Lymphocytes Auto (Unsp spec) [#/Vol]Ordered By: Geoff Perez on 12-03-2024 Lymphocytes (Bld) [#/Vol] 1.63 10*3/uL 0.83-4.51 [facility] Lymphocytes/100 WBC Auto (Un sp spec)Ordered By: Geoff Perez on 12-03-2024 Lymphocytes/100 WBC (Bld) 19.6 % 19-41 [facility] MCV (mean corpuscular volume ) determinationOrdered By: Geoff Perez on 12-03-2024 MCV (RBC) [Entitic vol] 87.1 fL 81-99 [facility] Mean corpuscular hemoglobin (MCH) determinationOrdered By: Geoff Perez on 12-03-2024 MCH (RBC) [Entitic mass] 28.5 pg 27.0-32.0 [facility] Mean corpuscular hemoglobin concentration (MCHC) determinationOrdered By: Geoff Perez on 12-03-2024 MCHC (RBC) [Mass/Vol] 32.7 g/dL 32-36 [facility] Mean platelet volume determi nationOrdered By: Geoff Perez on 12-03-2024 Platelet mean volume (Bld) [Entitic vol] 8.6 fL 6.2-12.0 [facility] Monocyte percentageOrdered B y: Geoff Perez on 12-03-2024 Monocytes/100 WBC (Bld) 9.0 % 0-10 [facility] Neutrophil percentageOrdered By: Geoff Perez on 12-03-2024 Neutrophils/100 WBC (Bld) 68.4 % 47-70 [facility] Nucleated red blood cell per centageOrdered By: Geoff Perez on 12-03-2024 Nucleated RBC/100 WBC (Bld) [Ratio] 0 % 0-5 [facility] Platelet countOrdered By: Gume Perez on 12-03-2024 Platelets (Bld) [#/Vol] 278 10*3/uL 150-450 [facility] Potassium measurementOrdered By: Geoff Perez on 12-03-2024 Potassium [Moles/Vol] 4.1 mmol/L 3.5-5.1 [facility] RBC Auto (Bld) [#/Vol]Ordere d By: Geoff Perez on 12-03-2024 RBC (Bld) [#/Vol] 5.02 10*6/uL 4.2-5.4 [facility] Serum anion gap measurementO rdered By: Geoff Perez on 12-03-2024 Anion gap [Moles/Vol] 8 mmol/L 5-15 [facility] Serum globulin measurementOr dered By: Geoff Perez 12-03-2024 Globulin (S) [Mass/Vol] 3.4 g/dL 2.2-4.2 [facility] Serum or plasma alanine mcbride otransferase (ALT) measurementOrdered By: Geoff ePrez 12-03-2024 ALT [Catalytic activity/Vol] 20 U/L 13-56 [facility] Serum or plasma albumin manoj urement (mass/volume)Ordered By: Geoff Perez on 12-03-2024 Albumin [Mass/Vol] 3.6 g/dL 3.2-5.0 [facility] Serum or plasma alkaline bertha sphatase measurementOrdered By: Geoff Perez 12-03-2024 ALP [Catalytic activity/Vol] 92 U/L 45-117 [facility] Serum or plasma calcium manoj urement (mass/volume)Ordered By: Geoff Perez on 12-03-2024 Calcium [Mass/Vol] 8.6 mg/dL 8.5-10.1 [facility] Serum or plasma cholesterol measurement (mass/volume)Ordered By: Geoff Perez on 12-03-2024 Cholesterol [Mass/Vol] 199 mg/dL <200 [facility] Comment on above: <200 mg/dL Desirable 200-240 mg/dL Borderline >240 mg/dL High Risk Serum or plasma creatinine m easurement (mass/volume)Ordered By: Geoff Perez 12-03-2024 Creatinine [Mass/Vol] 0.72 mg/dL 0.55-1.02 [facility] Comment on above: The validity of the calculated GFR & GFRAA in patients over 70 years has not been determined. Clinical correlation is essential. Serum or plasma thyroid stim ulating hormone (TSH) measurement (units/volume)Ordered By: Geoff Perez on 12-03-2024 TSH Qn 2.340 uIU/mL 0.358-3.740 [facility] Serum or plasma urea nitroge n measurement (mass/volume)Ordered By: Geoff Perez 12-03-2024 Urea nitrogen [Mass/Vol] 12 mg/dL 7-18 [facility] Sodium levelOrdered By: Geoff Perez on 12-03-2024 Sodium [Moles/Vol] 138 mmol/L 136-145 [facility] TSH QnOrdered By: Geoff Perez o n 12-03-2024 Thyroid Stimulating Hormone (TSH) 2.340 uIU/mL 0.358-3.740 [facility] Thyroid Stim Hormone (TSH)on 12-03-2024 TSH 2.340 uIU/mL Normal 0.358-3.740 [facility] Comment on above: Performed By: #### M 100.2000, M100.2400 #### [facility] [address] [place], [place], [id number] Total proteinOrdered By: Geoff Perez on 12-03-2024 Protein [Mass/Vol] 7.0 g/dL 6.4-8.2 [facility] Triglycerides measurementOrd ered By: Geoff Perez on 12-03-2024 Triglyceride [Mass/Vol] 122 mg/dL <199 [facility] Comment on above: The drugs N-Acetylcy steine and Metamizole may falsely depress this assay.Serum Triglycerides Reference Interval Normal <150 mg/dL Borderline high 150 - 199 mg/dL High 200 - 499 mg/dL Very High > or = 500 mg/dL Very low density lipoprotein (VLDL) cholesterol measurementOrdered By: Geoff Perez on 12-03-2024 Very low density lipoprotein (VLDL) cholesterol measurement 24 mg/dL 5-40 [facility] VLDL Cholesterol 24 mg/dL 5-40 [facility] Vitamin D,25 Hydroxyon 12-03 Vitamin D 25-OH 30.5 ng/mL Normal [facility] Comment on above: Result Comment: Dianna min D 25(OH) Status Range Deficiency <20 ng/mL (50nmol/L) Insufficiency 20 - 30 ng/mL (50 - 75 nmol/L) Sufficiency 30 - 100 ng/mL (75 - 250 nmol/L) Toxicity >100 ng/mL (>250 nmol/L) Performed By: #### M 100.2000, M100.2400 #### [facility] [address] [facility] [address] [place], [place], [address] White blood cell (WBC) count Ordered By: Geoff Perez on 12-03-2024 WBC (Bld) [#/Vol] 8.3 10*3/uL 4.4-11.0 [facility] TSH QnOrdered By: Geoff quintana 10-03-2024 Thyroid Stimulating Hormone (TSH) 3.300 uIU/mL 0.358-3.740 [facility] Thyroid Stim Hormone (TSH)on 10-03-2024 TSH 3.300 uIU/mL Normal 0.358-3.740 [facility] Comment on above: Performed By: #### M 100.678 #### [facility] [address] [place], [address] Immunoglobulins G/A/M/Raffaele IMMUNOGLOB A QN Normal [facility] Comment on above: Order Comment: N Result Comment: WRON G TEST Performed By: #### L 3200.1100 #### [facility] [address] [place], [address] IMMUNOGLOB E QN Normal [facility] Comment on above: Order Comment: N Result Comment: WRON G TEST Performed By: #### L 3200.1100 #### [facility] [address] [place], [address] IMMUNOGLOB G QN Normal [facility] Comment on above: Order Comment: N Result Comment: WRON G TEST Performed By: #### L 3200.1100 #### [facility] [address] [place], [address] IMMUNOGLOB M QN Normal [facility] Comment on above: Order Comment: N Result Comment: WRON G TEST Performed By: #### L 3200.1100 #### [facility] [address] [place], [address] Immunoglobulins G/A/M/Raffaele IMMUNOGLOB A QN 232 mg/dL Normal 87-352 [facility] Comment on above: Order Comment: N Performed By: #### M 100.678 #### [facility] [address] [place], [address] IMMUNOGLOB E QN 32 IU/mL Normal 6-495 [facility] Comment on above: Order Comment: N Result Comment: Perf ormed at: [facility] [address] [id number] [employer] Supervisor: Houston Bowden PhD, Phone: [phone] Performed at: [facility] [address] [id number] [employer] Supervisor: Micheline Saravia MD, Phone: [phone] Performed By: #### M 100.678 #### [facility] [address] [place], [address] IMMUNOGLOB G QN 682 mg/dL Normal 586-1602 [facility] Comment on above: Order Comment: N Performed By: #### M 100.678 #### [facility] [address] [place], [address] IMMUNOGLOB M QN 83 mg/dL Normal 26-217 [facility] Comment on above: Order Comment: N Performed By: #### M 100.678 #### [facility] [address] [place], [address] M100.678on 08-07-2024 M100.678 Pending SARS-CoV-2 (COVID 19) Negative INFLUENZA A Negative INFLUENZA B Negative RSV PCR Negative Normal [facility] Comment on above: Performed By: #### M 100.678 #### [facility] [place], [address] Thyroid Stim Hormone (TSH)on 08-07-2024 TSH 2.800 uIU/mL Normal 0.358-3.740 [facility] Comment on above: Performed By: #### M 100.678, L3200.1100, L501.9520 #### [facility] [place], [address] Thyroid Stim Hormone (TSH)on 07-24-2024 TSH 4.340 uIU/mL High 0.358-3.740 [facility] Comment on above: Performed By: #### L 501.9520 #### [facility] [address] [place], [address] CBC W/Diff, Automatedon 08-0 Absolute Lymph 1.61 X10 3/uL Normal 0.83-4.51 [facility] Comment on above: Performed By: #### M 100.678 #### [facility] [address] [place], [address] Absolute Neut 6.2 X10 3/uL Normal 2.0-7.7 [facility] Comment on above: Performed By: #### M 100.678 #### [facility] [address] [place], [address] Basophils/100 WBC (Bld) 0.7 % Normal 0-1 [facility] Comment on above: Performed By: #### M 100.678 #### [facility] [address] [place], [address] Eosinophils/100 WBC (Bld) 4.0 % Normal 0-5 [facility] Comment on above: Performed By: #### M 100.678 #### [facility] [address] [place], [address] Erythrocyte distribution width (RBC) [Ratio] 12.8 % Normal 11.6-14.6 [facility] Comment on above: Performed By: #### M 100.678 #### [facility] [address] [place], [address] Hematocrit (Bld) [Volume fraction] 45.5 % Normal 37-47 [facility] Comment on above: Performed By: #### M 100.678 #### [facility] [address] [place], [address] Hemoglobin (Bld) [Mass/Vol] 15.2 g/dL High 12.0-15.0 [facility] Comment on above: Performed By: #### M 100.678 #### [facility] [address] [place], [address] IG% 0.300 Normal 0.0-0.9 [facility] Comment on above: Result Comment: IG% - Immature Granulocytes (promyelocytes, myelocytes and metamyelocytes) > 1% indicates that a LEFT SHIFT is Present. Performed By: #### M 100.678 #### [facility] [address] [place], [address] Lymphocytes/100 WBC (Bld) 17.8 % Low 19-41 [facility] Comment on above: Performed By: #### M 100.678 #### [facility] [address] [place], [address] MCH (RBC) [Entitic mass] 29.3 pg Normal 27.0-32.0 [facility] Comment on above: Performed By: #### M 100.678 #### [facility] [address] [place], [address] MCHC (RBC) [Mass/Vol] 33.4 g/dL Normal 32-36 [facility] Comment on above: Performed By: #### M 100.678 #### [facility] [address] [place], [address] MCV (RBC) [Entitic vol] 87.7 fL Normal 81-99 [facility] Comment on above: Performed By: #### M 100.678 #### [facility] [address] [place], [address] Monocytes/100 WBC (Bld) 8.9 % Normal 0-10 [facility] Comment on above: Performed By: #### M 100.678 #### [facility] [address] [place], [address] Neutrophils/100 WBC (Bld) 68.3 % Normal 47-70 [facility] Comment on above: Performed By: #### M 100.678 #### [facility] [address] [place], [address] Nucleated RBC (Bld) [#/Vol] 0 10*3/uL Normal 0-5 [facility] Comment on above: Performed By: #### M 100.678 #### [facility] [address] [place], [address] Platelet mean volume (Bld) [Entitic vol] 8.8 fL Normal 6.2-12.0 [facility] Comment on above: Performed By: #### M 100.678 #### [facility] [address] [place], [address] Platelets (Bld) [#/Vol] 320 10*3/uL Normal 150-450 [facility] Comment on above: Performed By: #### M 100.678 #### [facility] [address] [place], [address] RBC (Bld) [#/Vol] 5.19 10*6/uL Normal 4.2-5.4 [facility] Comment on above: Performed By: #### M 100.678 #### [facility] [address] [place], [address] RDW SD 41.2 fl Normal 35.1-43.9 [facility] Comment on above: Performed By: #### M 100.678 #### [facility] [address] [place], [address] WBC (Bld) [#/Vol] 9.1 10*3/uL Normal 4.4-11.0 [facility] Comment on above: Performed By: #### M 100.678 #### [facility] [address] [place], [address] Comprehensive Metabolic Prof [facility] 05-27-2024 Albumin [Mass/Vol] 3.7 g/dL Normal 3.2-5.0 [facility] Comment on above: Performed By: #### M 100.678 #### [facility] [address] [place], [address] Albumin/Globulin [Mass ratio] 1.1 {ratio} Normal 0.9-2.4 [facility] Comment on above: Performed By: #### M 100.678 #### [facility] [address] [place], [address] ALK P 99 U/L Normal 45-117 [facility] Comment on above: Performed By: #### M 100.678 #### [facility] [address] [place], [address] ALT [Catalytic activity/Vol] 19 U/L Normal 13-56 [facility] Comment on above: Performed By: #### M 100.678 #### [facility] [address] [place], [address] AST [Catalytic activity/Vol] 28 U/L Normal 15-37 [facility] Comment on above: Performed By: #### M 100.678 #### [facility] [address] [place], [address] Bilirubin [Mass/Vol] 0.60 mg/dL Normal 0.20-1.00 [facility] Comment on above: Result Comment: For patients on eltrombopag therapy, use of Dimension [place] TBIL is not recommended. Performed By: #### M 100.678 #### [facility] [address] [place], [address] BUN/CRE 14.7 RATIO Normal 10-20 [facility] Comment on above: Performed By: #### M 100.678 #### [facility] [address] [place], [address] CA,Total 8.9 mg/dL Normal 8.5-10.1 [facility] Comment on above: Performed By: #### M 100.678 #### [facility] [address] [place], [address] Chloride [Moles/Vol] 109 mmol/L High 98-107 [facility] Comment on above: Performed By: #### M 100.678 #### [facility] [address] [place], [address] CO2 [Moles/Vol] 26.0 mmol/L Normal 21.0-32.0 [facility] Comment on above: Performed By: #### M 100.678 #### [facility] [address] [place], [address] Creatinine [Mass/Vol] 0.82 mg/dL Normal 0.55-1.02 [facility] Comment on above: Result Comment: The validity of the calculated GFR GFRAA in patients over 70 years has not been determined. Clinical correlation is essential. Performed By: #### M 100.678 #### [facility] [address] [place], [address] EST GFR - AA 90 mL/min Normal >60 [facility] Comment on above: Result Comment: Afri can Turkish GFR Calc Performed By: #### M 100.678 #### [facility] [address] [place], [address] GAP 5 Normal 5-15 [facility] Comment on above: Performed By: #### M 100.678 #### [facility] [address] [place], [address] GFR/1.73 sq M.predicted among non-blacks MDRD (S/P/Bld) [Vol rate/Area] 74 mL/min/{1.73_m2} Normal >60 [facility] Comment on above: Result Comment: Non- GFR Calc Performed By: #### M 100.678 #### [facility] [address] [place], [address] Globulin (S) [Mass/Vol] 3.5 g/dL Normal 2.2-4.2 [facility] Comment on above: Performed By: #### M 100.678 #### [facility] [address] [place], [address] Glucose [Mass/Vol] 125 mg/dL High 74-106 [facility] Comment on above: Result Comment: Fast ing Glucose result from 100 to 125 mg/dL suggests IMPAIRED HOMEOSTASIS per A.D.A. criteria. Performed By: #### M 100.678 #### [facility] [address] [place], [address] Potassium [Moles/Vol] 3.6 mmol/L Normal 3.5-5.1 [facility] Comment on above: Performed By: #### M 100.678 #### [facility] [address] [place], [address] Sodium [Moles/Vol] 140 mmol/L Normal 136-145 [facility] Comment on above: Performed By: #### M 100.678 #### [facility] [address] [place], [address] T PROT 7.2 g/dL Normal 6.4-8.2 [facility] Comment on above: Performed By: #### M 100.678 #### [facility] [address] [place], [address] Urea nitrogen [Mass/Vol] 12 mg/dL Normal 7-18 [facility] Comment on above: Performed By: #### M 100.678 #### [facility] [address] [place], [address] Lipid Profileon 05-27-2024 Cholesterol [Mass/Vol] 209 mg/dL High 200 [facility] Comment on above: Result Comment: <200 mg/dL Desirable 200-240 mg/dL Borderline >240 mg/dL High Risk Performed By: #### M 100.678 #### [facility] [address] [place], [address] Cholesterol in HDL [Mass/Vol] 71 mg/dL Normal [facility] Comment on above: Result Comment: The drugs N-Acetylcysteine and Metamizole may falsely depress this assay. Reference Range HDL <40 mg/dL Low HDL Cholesterol HDL >or= 60 mg/dL High HDL Cholesterol Performed By: #### M 100.678 #### [facility] Laboratory [address] [place], [address] Cholesterol in LDL [Mass/Vol] 110 mg/dL Normal 0-130 [facility] Comment on above: Performed By: #### M [id number] #### [facility] [address] [place], [address] Cholesterol in VLDL [Mass/Vol] 28 mg/dL Normal 5-40 [facility] Comment on above: Performed By: #### M [id number] #### [facility] [address] [place], [address] Triglyceride [Mass/Vol] 142 mg/dL Normal [facility] Comment on above: Result Comment: The drugs N-Acetylcysteine and Metamizole may falsely depress this assay. Serum Triglycerides Reference Interval Normal <150 mg/dL Borderline high 150 - 199 mg/dL High 200 - 499 mg/dL Very High > or = 500 mg/dL Performed By: #### M [id number] #### [facility] [address] [place], [address] [id number] 05-27-2024 [id number] SARS-CoV-2 (COVID 19 ) Negative INFLUENZA A Negative INFLUENZA B Negative RSV PCR Negative Normal [facility] Comment on above: Performed By: #### M [id number] #### [facility] [address] [place], [address] Thyroid Stim Hormone (TSH)on 05-27-2024 TSH 5.08 uIU/mL High 0.358-3.74 [facility] Comment on above: Performed By: #### M [id number] #### [facility] [address] [place], [address] Vitamin D,25 Hydroxyon 05-27 Vitamin D 25-OH 44.0 ng/mL Normal [facility] Comment on above: Result Comment: Dianna min D 25(OH) Status Range Deficiency <20 ng/mL (50nmol/L) Insufficiency 20 - 30 ng/mL (50 - 75 nmol/L) Sufficiency 30 - 100 ng/mL (75 - 250 nmol/L) Toxicity >100 ng/mL (>250 nmol/L) Performed By: #### M [id number] #### [facility] [address] [place], [place], [address] [id number] 05-02-2024 [id number] SARS-CoV-2 (COVID 19 ) Negative INFLUENZA A Negative INFLUENZA B Negative RSV PCR Negative Normal [facility] Comment on above: Performed By: #### M [id number] #### [facility] [address] [place], [place], [address] Absolute lymphocyte countOrd ered By: Geoff Perez on 11-21-2023 Lymphocytes Auto (Unsp spec) [#/Vol] 1.31 10*3/uL 0.83-4.51 [facility] Automated lymphocyte count a s percentage of total leukocytesOrdered By: Geoff Perez on 11-21-2023 Lymphocytes/100 WBC Auto (Unsp spec) 17.6 % 19-41 [facility] Basophil percentageOrdered B y: Geoff Perez on 11-21-2023 Basophils/100 WBC (Bld) 0.7 % 0-1 [facility] Bilirubin [Mass/Vol] 0.50 mg/dL 0.20-1.00 [facility] Comment on above: For patients on eltr ombopag therapy, use of Dimension [place] TBIL is not recommended. Chloride [Moles/Vol] 110 mmol/L 98-107 [facility] Eosinophils/100 WBC (Bld) 4.2 % 0-5 [facility] Glucose [Mass/Vol] 110 mg/dL 74-106 [facility] Comment on above: Fasting Glucose resu lt from 100 to 125 mg/dL suggests IMPAIRED HOMEOSTASIS per A.D.A. criteria. Hemoglobin (Bld) [Mass/Vol] 14.1 g/dL 12.0-15.0 [facility] Monocytes/100 WBC (Bld) 8.6 % 0-10 [facility] Neutrophils (Bld) [#/Vol] 5.1 10*3/uL 2.0-7.7 [facility] Neutrophils/100 WBC (Bld) 68.6 % 47-70 [facility] Potassium [Moles/Vol] 4.2 mmol/L 3.5-5.1 [facility] Protein [Mass/Vol] 7.0 g/dL 6.4-8.2 [facility] Sodium [Moles/Vol] 142 mmol/L 136-145 [facility] WBC (Bld) [#/Vol] 7.4 10*3/uL 4.4-11.0 [facility] Determination of erythrocyte mean corpuscular volume (MCV)Ordered By: Geoff Perez on 11-21-2023 MCV (RBC) [Entitic vol] 87.6 fL 81-99 [facility] Erythrocyte distribution wid th ratioOrdered By: [facility] on 11-21-2023 Erythrocyte distribution width (RBC) [Ratio] 13.7 % 11.6-14.6 [facility] Erythrocyte distribution wid th standard deviationOrdered By: Geoff Perez on 11-21-2023 Erythrocyte distribution width (RBC) [Entitic vol] 44.1 fL 35.1-43.9 [facility] Hematocrit Auto (Bld) [Volum e fraction]Ordered By: Geoff Perez 11-21-2023 Hematocrit (Bld) [Volume fraction] 42.5 % 37-47 [facility] Immature granulocytes/100 WB C Auto (Bld)Ordered By: Geoff Perez 11-21-2023 Immature granulocytes/100 WBC (Bld) 0.300 % 0.0-0.9 [facility] Comment on above: IG% - Immature Granu locytes (promyelocytes, myelocytes and metamyelocytes) > 1% indicates that a LEFT SHIFT is Present. Laboratory - Chemistry and C hemistry - challengeOrdered By: Geoff Perez on 11-21-2023 Albumin/Globulin [Mass ratio] 1.1 {ratio} 0.9-2.4 [facility] ALP [Catalytic activity/Vol] 107 U/L 45-117 [facility] ALT [Catalytic activity/Vol] 22 U/L 13-56 [facility] CO2 [Moles/Vol] 27.0 mmol/L 21.0-32.0 [facility] Globulin (S) [Mass/Vol] 3.3 g/dL 2.2-4.2 [facility] Urea nitrogen/Creatinine [Mass ratio] 15.6 mg/mg 10-20 [facility] - Hematology and Cell countsOrdered By: Geoff Perez on 11-21-2023 MCH (RBC) [Entitic mass] 29.1 pg 27.0-32.0 [facility] MCHC (RBC) [Mass/Vol] 33.2 g/dL 32-36 [facility] Nucleated RBC/100 WBC (Bld) [Ratio] 0 % 0-5 [facility] Platelets (Bld) [#/Vol] 270 10*3/uL 150-450 [facility] No Panel InformationOrdered By: Geoff Perez on 11-21-2023 Estimated GFR (MDRD) Amer 96 mL/min >60 [facility] Comment on above: GFR Calc Estimated GFR (MDRD) Non-Af Amer 80 mL/min >60 [facility] Comment on above: Non- GFR Calc Vitamin D 25-Hydroxy 30.8 ng/mL [facility] Comment on above: Vitamin D 25(OH) Sta tus Range Deficiency <20 ng/mL (50nmol/L) Insufficiency 20 - 30 ng/mL (50 - 75 nmol/L) Sufficiency 30 - 100 ng/mL (75 - 250 nmol/L) Toxicity >100 ng/mL (>250 nmol/L) Platelet mean volume Rodolfo-Ec ker (Bld) [Entitic vol]Ordered By: Geoff Perez on 11-21-2023 Platelet mean volume (Bld) [Entitic vol] 8.9 fL 6.2-12.0 [facility] RBC Auto (Bld) [#/Vol]Ordere d By: Geoff Perez on 11-21-2023 RBC (Bld) [#/Vol] 4.85 10*6/uL 4.2-5.4 [facility] Serum or plasma calcium manoj urement (mass/volume)Ordered By: Geoff Perez on 11-21-2023 Calcium [Mass/Vol] 9.0 mg/dL 8.5-10.1 [facility] Serum or plasma creatinine m easurement (mass/volume)Ordered By: Geoff Perez on 11-21-2023 Creatinine [Mass/Vol] 0.77 mg/dL 0.55-1.02 [facility] Comment on above: The validity of the calculated GFR & GFRAA in patients over 70 years has not been determined. Clinical correlation is essential. Serum or plasma thyroid stim ulating hormone (TSH) measurement (units/volume)Ordered By: Geoff Perez on 11-21-2023 TSH Qn 5.26 uIU/mL 0.358-3.74 [facility] Serum or plasma urea nitroge n measurement (mass/volume)Ordered By: Geoff Perez on 11-21-2023 Urea nitrogen [Mass/Vol] 12 mg/dL 7-18 [facility] Thin prep Papanicolaou smear with manual screeningOrdered By: Geoff Perez on 11-21-2023 Thin prep Papanicolaou smear with manual screening 3.7 g/dL 3.2-5.0 [facility] Thin prep Papanicolaou smear with manual screening 15 U/L 15-37 [facility] Thin prep Papanicolaou smear with manual screening 5 5-15 [facility] Absolute lymphocyte countOrd ered By: Geoff Perez on 08-09-2023 Lymphocytes Auto (Unsp spec) [#/Vol] 1.29 10*3/uL 0.83-4.51 [facility] Basophil percentageOrdered B y: Geoff Perez on 08-09-2023 Basophils/100 WBC (Bld) 0.5 % 0-1 [facility] Bilirubin [Mass/Vol] 0.40 mg/dL 0.20-1.00 [facility] Comment on above: For patients on eltr ombopag therapy, use of Dimension [place] TBIL is not recommended. Chloride [Moles/Vol] 109 mmol/L 98-107 [facility] Eosinophils/100 WBC (Bld) 1.1 % 0-5 [facility] Glucose [Mass/Vol] 111 mg/dL 74-106 [facility] Comment on above: Fasting Glucose resu lt from 100 to 125 mg/dL suggests IMPAIRED HOMEOSTASIS per A.D.A. criteria. Neutrophils (Bld) [#/Vol] 6.2 10*3/uL 2.0-7.7 [facility] Neutrophils/100 WBC (Bld) 73.3 % 47-70 [facility] Potassium [Moles/Vol] 3.7 mmol/L 3.5-5.1 [facility] Protein [Mass/Vol] 7.2 g/dL 6.4-8.2 [facility] Sodium [Moles/Vol] 141 mmol/L 136-145 [facility] WBC (Bld) [#/Vol] 8.4 10*3/uL 4.4-11.0 [facility] Blood erythrocytes count (nu mber/volume)Ordered By: Geoff Perez on 08-09-2023 RBC (Bld) [#/Vol] 5.19 10*6/uL 4.2-5.4 [facility] Blood hemoglobin measurement (mass/volume)Ordered By: Geoff Perez on 08-09-2023 Hemoglobin (Bld) [Mass/Vol] 15.3 g/dL 12.0-15.0 [facility] Blood lymphocytes/100 leukoc ytesOrdered By: Geoff Perez on 08-09-2023 Lymphocytes/100 WBC (Bld) 15.4 % 19-41 [facility] Blood monocytes/100 leukocyt esOrdered By: Geoff Perez on 08-09-2023 Monocytes/100 WBC (Bld) 9.2 % 0-10 [facility] Blood platelet mean volumeOr dered By: Geoff Perez on 08-09-2023 Platelet mean volume (Bld) [Entitic vol] 8.6 fL 6.2-12.0 [facility] Determination of erythrocyte mean corpuscular volume (MCV)Ordered By: Geoff Perez on 08-09-2023 MCV (RBC) [Entitic vol] 89.8 fL 81-99 [facility] Hematocrit Auto (Bld) [Volum e fraction]Ordered By: Geoff Perez on 08-09-2023 Hematocrit (Bld) [Volume fraction] 46.6 % 37-47 [facility] - Chemistry and C hemistry - challengeOrdered By: Geoff Perez on 08-09-2023 ALP [Catalytic activity/Vol] 119 U/L 45-117 [facility] ALT [Catalytic activity/Vol] 26 U/L 13-56 [facility] CO2 [Moles/Vol] 27.0 mmol/L 21.0-32.0 [facility] Cobalamin (Vitamin B12) [Mass/Vol] 205 pg/mL 211-911 [facility] Globulin (S) [Mass/Vol] 3.7 g/dL 2.2-4.2 [facility] Urea nitrogen/Creatinine [Mass ratio] 17.9 mg/mg 10-20 [facility] - Hematology and Cell countsOrdered By: Geoff Perez on 08-09-2023 Erythrocyte distribution width (RBC) [Entitic vol] 42.5 fL 35.1-43.9 [facility] Erythrocyte distribution width (RBC) [Ratio] 13.0 % 11.6-14.6 [facility] Immature granulocytes/100 WBC (Bld) 0.500 % 0.0-0.9 [facility] Comment on above: IG% - Immature Granu locytes (promyelocytes, myelocytes and metamyelocytes) > 1% indicates that a LEFT SHIFT is Present. MCH (RBC) [Entitic mass] 29.5 pg 27.0-32.0 [facility] Nucleated RBC/100 WBC (Bld) [Ratio] 0 % 0-5 [facility] MCHC Auto (RBC) [Mass/Vol]Or dered By: Geoff Perez on 08-09-2023 MCHC (RBC) [Mass/Vol] 32.8 g/dL 32-36 [facility] No Panel InformationOrdered By: Geoff Perez on 08-09-2023 Estimated GFR (MDRD) Amer 102 mL/min >60 [facility] Comment on above: GFR Calc Estimated GFR (MDRD) Non-Af Amer 85 mL/min >60 [facility] Comment on above: Non- GFR Calc Thyroid Stimulating Hormone (TSH) 3.43 uIU/mL 0.358-3.74 [facility] Platelets bldOrdered By: Geoff Perez on 10-18-2023 Platelets (Bld) [#/Vol] 292 10*3/uL 150-450 [facility] Serum Treponema species anti body detectionOrdered By: Geoff Perez on 08-09-2023 Treponema sp Ab Ql (S) Non-Reactive [facility] Serum or plasma albumin manoj urement (mass/volume)Ordered By: Geoff Perez on 08-09-2023 Albumin [Mass/Vol] 3.5 g/dL 3.2-5.0 [facility] Serum or plasma albumin/glob ulin mass ratioOrdered By: Geoff Perez on 08-09-2023 Albumin/Globulin [Mass ratio] 0.9 {ratio} 0.9-2.4 [facility] Serum or plasma calcium manoj urement (mass/volume)Ordered By: Geoff Perez 08-09-2023 Calcium [Mass/Vol] 8.8 mg/dL 8.5-10.1 [facility] Serum or plasma creatinine m easurement (mass/volume)Ordered By: Geoff Perez 08-09-2023 Creatinine [Mass/Vol] 0.73 mg/dL 0.55-1.02 [facility] Comment on above: The validity of the calculated GFR & GFRAA in patients over 70 years has not been determined. Clinical correlation is essential. Serum or plasma folate measu rement (mass/volume)Ordered By: Geoff Perez on 08-09-2023 Folate [Mass/Vol] 48.00 ng/mL 3.1-55.4 [facility] Comment on above: Slight Hemolysis, Re sult may be falsely increased. Serum or plasma urea nitroge n measurement (mass/volume)Ordered By: Geoff Perez on 08-09-2023 Urea nitrogen [Mass/Vol] 13 mg/dL -18 [facility] Thin prep Papanicolaou smear with manual screeningOrdered By: Geoff Perez 08-09-2023 Thin prep Papanicolaou smear with manual screening 16 U/L 15-37 [facility] Thin prep Papanicolaou smear with manual screening 5 5-15 [facility] Whole blood hemoglobin A1c/t otal hemoglobin ratio (mass fraction)Ordered By: Geoff Perez 08-09-2023 HbA1c (Bld) [Mass fraction] 5.0 % 3.8-5.6 [facility] Comment on above: Normal < 5.7 % Predi abetic 5.7 - 6.4 % Diabetic >or= 6.5 % Please note range changes. Absolute lymphocyte countOrd ered By: Dr. Perez on 02-16-2023 Lymphocytes Auto (Unsp spec) [#/Vol] 1.97 10*3/uL 0.83-4.51 [facility] Basophil percentageOrdered B y: Dr. Perez on 02-16-2023 Basophils/100 WBC (Bld) 0.7 % 0-1 [facility] Bilirubin [Mass/Vol] 0.50 mg/dL 0.20-1.00 [facility] Comment on above: For patients on eltr ombopag therapy, use of Dimension [place] TBIL is not recommended. Chloride [Moles/Vol] 109 mmol/L 98-107 [facility] Eosinophils/100 WBC (Bld) 1.2 % 0-5 [facility] Glucose [Mass/Vol] 112 mg/dL 74-106 [facility] Comment on above: Fasting Glucose resu lt from 100 to 125 mg/dL suggests IMPAIRED HOMEOSTASIS per A.D.A. criteria. Neutrophils (Bld) [#/Vol] 4.6 10*3/uL 2.0-7.7 [facility] Neutrophils/100 WBC (Bld) 62.8 % 47-70 [facility] Potassium [Moles/Vol] 3.4 mmol/L 3.5-5.1 [facility] Protein [Mass/Vol] 6.5 g/dL 6.4-8.2 [facility] Sodium [Moles/Vol] 138 mmol/L 136-145 [facility] WBC (Bld) [#/Vol] 7.4 10*3/uL 4.4-11.0 [facility] Blood erythrocytes count (nu mber/volume)Ordered By: Dr. Perez on 02-16-2023 RBC (Bld) [#/Vol] 4.99 10*6/uL 4.2-5.4 [facility] Blood hemoglobin measurement (mass/volume)Ordered By: Dr. Perez on 02-16-2023 Hemoglobin (Bld) [Mass/Vol] 14.5 g/dL 12.0-15.0 [facility] Blood lymphocytes/100 leukoc ytesOrdered By: Dr. Perez on 02-16-2023 Lymphocytes/100 WBC (Bld) 26.8 % 19-41 [facility] Blood monocytes/100 leukocyt esOrdered By: Dr. Perez on 02-16-2023 Monocytes/100 WBC (Bld) 8.0 % 0-10 [facility] Blood platelet mean volumeOr dered By: Dr. Perez on 02-16-2023 Platelet mean volume (Bld) [Entitic vol] 8.7 fL 6.2-12.0 [facility] Determination of erythrocyte mean corpuscular volume (MCV)Ordered By: Dr. Perez on 02-16-2023 MCV (RBC) [Entitic vol] 88.0 fL 81-99 [facility] Hematocrit Auto (Bld) [Volum e fraction]Ordered By: Dr. Perez on 02-16-2023 Hematocrit (Bld) [Volume fraction] 43.9 % 37-47 [facility] - Chemistry and C hemistry - challengeOrdered By: Dr. Perez on 02-16-2023 ALP [Catalytic activity/Vol] 88 U/L 45-117 [facility] ALT [Catalytic activity/Vol] 19 U/L 13-56 [facility] CO2 [Moles/Vol] 24.0 mmol/L 21.0-32.0 [facility] Globulin (S) [Mass/Vol] 3.1 g/dL 2.2-4.2 [facility] Urea nitrogen/Creatinine [Mass ratio] 14.6 mg/mg 10-20 [facility] - Hematology and Cell countsOrdered By: Dr. Perez on 02-16-2023 Erythrocyte distribution width (RBC) [Entitic vol] 42.6 fL 35.1-43.9 [facility] Erythrocyte distribution width (RBC) [Ratio] 13.2 % 11.6-14.6 [facility] Immature granulocytes/100 WBC (Bld) 0.500 % 0.0-0.9 [facility] Comment on above: IG% - Immature Granu locytes (promyelocytes, myelocytes and metamyelocytes) > 1% indicates that a LEFT SHIFT is Present. MCH (RBC) [Entitic mass] 29.1 pg 27.0-32.0 [facility] Nucleated RBC/100 WBC (Bld) [Ratio] 0 % 0-5 [facility] MCHC Auto (RBC) [Mass/Vol]Or dered By: Dr. Perez on 02-16-2023 MCHC (RBC) [Mass/Vol] 33.0 g/dL 32-36 [facility] No Panel InformationOrdered By: Dr. Perez on 02-16-2023 Estimated GFR (MDRD) Amer 81 mL/min >60 [facility] Comment on above: GFR Calc Estimated GFR (MDRD) Non-Af Amer 67 mL/min >60 [facility] Comment on above: Non- GFR Calc Thyroid Stimulating Hormone (TSH) 3.59 uIU/mL 0.358-3.74 [facility] Vitamin D 25-Hydroxy 33.2 ng/mL [facility] Comment on above: Vitamin D 25(OH) Sta tus Range Deficiency <20 ng/mL (50nmol/L) Insufficiency 20 - 30 ng/mL (50 - 75 nmol/L) Sufficiency 30 - 100 ng/mL (75 - 250 nmol/L) Toxicity >100 ng/mL (>250 nmol/L) Platelets bldOrdered By: Dr. Perez on 02-16-2023 Platelets (Bld) [#/Vol] 278 10*3/uL 150-450 [facility] Serum or plasma albumin manoj urement (mass/volume)Ordered By: Dr. Perez on 02-16-2023 Albumin [Mass/Vol] 3.4 g/dL 3.2-5.0 [facility] Serum or plasma albumin/glob ulin mass ratioOrdered By: Dr. Perez on 02-16-2023 Albumin/Globulin [Mass ratio] 1.1 {ratio} 0.9-2.4 [facility] Serum or plasma calcium manoj urement (mass/volume)Ordered By: Dr. Perez on 02-16-2023 Calcium [Mass/Vol] 8.7 mg/dL 8.5-10.1 [facility] Serum or plasma creatinine m easurement (mass/volume)Ordered By: Dr. Perez on 02-16-2023 Creatinine [Mass/Vol] 0.89 mg/dL 0.55-1.02 [facility] Comment on above: The validity of the calculated GFR & GFRAA in patients over 70 years has not been determined. Clinical correlation is essential. Serum or plasma urea nitroge n measurement (mass/volume)Ordered By: Dr. Perez on 02-16-2023 Urea nitrogen [Mass/Vol] 13 mg/dL 7-18 [facility] Thin prep Papanicolaou smear with manual screeningOrdered By: Dr. Perez on 02-16-2023 Thin prep Papanicolaou smear with manual screening 16 U/L 15-37 [facility] Thin prep Papanicolaou smear with manual screening 5 5-15 [facility] COVID-19 virus antigen assay Ordered By: Dr. Perez on 02-15-2023 SARS-CoV-2 (COVID-19) Ag IA.rapid Ql (Resp) Not detected Not Detect [facility] Comment on above: Normal Reference Ran [...] 02-15-2023 Influenza Types A,B Direct FA (GEMMA) [facility] No Panel InformationOrdered By: Dr. Perez on 02-15-2023 Influenza Types A,B Direct FA (GEMMA) [facility] RSV Ag EIAOrdered By: Geoff asif on 02-15-2023 RSV Ag Immune stain Ql (Tiss) [facility] RSV Ag EIAOrdered By: Dr. Britney asif on 02-15-2023 RSV Ag Immune stain Ql (Tiss) [facility] Absolute lymphocyte counton 08-18-2022 Lymphocytes Auto (Unsp spec) [#/Vol] 0.96 10*3/uL 0.83-4.51 [facility] Work Phone: Basophil percentageon 2021 Basophils/100 WBC (Bld) 0.5 % 0-1 [facility] Work Phone: Bilirubin [Mass/Vol] 0.50 mg/dL 0.20-1.00 [facility] Work Phone: Comment on above: For patients on eltr ombopag therapy, use of Dimension [place] TBIL is not recommended. Chloride [Moles/Vol] 110 mmol/L 98-107 [facility] Work Phone: Eosinophils/100 WBC (Bld) 2.3 % 0-5 [facility] Work Phone: Glucose [Mass/Vol] 92 mg/dL 74-106 [facility] Work Phone: Neutrophils (Bld) [#/Vol] 4.2 10*3/uL 2.0-7.7 [facility] Work Phone: Neutrophils/100 WBC (Bld) 72.5 % 47-70 [facility] Work Phone: Potassium [Moles/Vol] 4.0 mmol/L 3.5-5.1 [facility] Work Phone: Protein [Mass/Vol] 6.5 g/dL 6.4-8.2 [facility] Work Phone: Sodium [Moles/Vol] 141 mmol/L 136-145 [facility] Work Phone: WBC (Bld) [#/Vol] 5.7 10*3/uL 4.4-11.0 [facility] Work Phone: Blood erythrocytes count (nu mber/volume)on 08-18-2022 RBC (Bld) [#/Vol] 4.64 10*6/uL 4.2-5.4 [facility] Work Phone: Blood hemoglobin measurement (mass/volume)on 08-18-2022 Hemoglobin (Bld) [Mass/Vol] 13.5 g/dL 12.0-15.0 [facility] Work Phone: Blood lymphocytes/100 leukoc yteson 08-18-2022 Lymphocytes/100 WBC (Bld) 16.7 % 19-41 [facility] Work Phone: Blood monocytes/100 leukocyt eson 08-18-2022 Monocytes/100 WBC (Bld) 7.8 % 0-10 [facility] Work Phone: Blood platelet mean volumeon 08-18-2022 Platelet mean volume (Bld) [Entitic vol] 8.6 fL 6.2-12.0 [facility] Work Phone: Determination of erythrocyte mean corpuscular volume (MCV)on 08-18-2022 MCV (RBC) [Entitic vol] 85.8 fL 81-99 [facility] Work Phone: Hematocrit Auto (Bld) [Volum e fraction]on 08-18-2022 Hematocrit (Bld) [Volume fraction] 39.8 % 37-47 [facility] Work Phone: Laboratory - Chemistry and C hemistry - challengeon 08-18-2022 ALP [Catalytic activity/Vol] 87 U/L 45-117 [facility] Work Phone: ALT [Catalytic activity/Vol] 19 U/L 13-56 [facility] Work Phone: CO2 [Moles/Vol] 27.0 mmol/L 21.0-32.0 [facility] Work Phone: Globulin (S) [Mass/Vol] 3.1 g/dL 2.2-4.2 [facility] Work Phone: Urea nitrogen/Creatinine [Mass ratio] 24.2 mg/mg 10-20 [facility] Work Phone: Laboratory - Hematology and Cell countson 08-18-2022 Erythrocyte distribution width (RBC) [Entitic vol] 41.6 fL 35.1-43.9 [facility] Work Phone: Erythrocyte distribution width (RBC) [Ratio] 13.2 % 11.6-14.6 [facility] Work Phone: Immature granulocytes/100 WBC (Bld) 0.200 % 0.0-0.9 [facility] Work Phone: Comment on above: IG% - Immature Granu locytes (promyelocytes, myelocytes and metamyelocytes) > 1% indicates that a LEFT SHIFT is Present. MCH (RBC) [Entitic mass] 29.1 pg 27.0-32.0 [facility] Work Phone: Nucleated RBC/100 WBC (Bld) [Ratio] 0 % 0-5 [facility] Work Phone: MCHC Auto (RBC) [Mass/Vol]on 08-18-2022 MCHC (RBC) [Mass/Vol] 33.9 g/dL 32-36 [facility] Work Phone: No Panel Informationon 08-18 Estimated GFR (MDRD) Amer 100 mL/min >60 [facility] Work Phone: Comment on above: GFR Calc Estimated GFR (MDRD) Non-Af Amer 83 mL/min >60 [facility] Work Phone: Comment on above: Non- GFR Calc Thyroid Stimulating Hormone (TSH) 3.00 uIU/mL 0.358-3.74 [facility] Work Phone: Vitamin D 25-Hydroxy 34.5 ng/mL [facility] Work Phone: Comment on above: Vitamin D 25(OH) Sta tus Range Deficiency <20 ng/mL (50nmol/L) Insufficiency 20 - 30 ng/mL (50 - 75 nmol/L) Sufficiency 30 - 100 ng/mL (75 - 250 nmol/L) Toxicity >100 ng/mL (>250 nmol/L) Platelets bldon 08-18-2022 Platelets (Bld) [#/Vol] 238 10*3/uL 150-450 [facility] Work Phone: Serum or plasma albumin manoj urement (mass/volume)on 08-18-2022 Albumin [Mass/Vol] 3.4 g/dL 3.2-5.0 [facility] Work Phone: Serum or plasma albumin/glob ulin mass ratioon 08-18-2022 Albumin/Globulin [Mass ratio] 1.1 {ratio} 0.9-2.4 [facility] Work Phone: Serum or plasma calcium manoj urement (mass/volume)on 08-18-2022 Calcium [Mass/Vol] 8.9 mg/dL 8.5-10.1 [facility] Work Phone: Serum or plasma creatinine m easurement (mass/volume)on 08-18-2022 Creatinine [Mass/Vol] 0.74 mg/dL 0.55-1.02 [facility] Work Phone: Comment on above: The validity of the calculated GFR & GFRAA in patients over 70 years has not been determined. Clinical correlation is essential. Serum or plasma urea nitroge n measurement (mass/volume)on 08-18-2022 Urea nitrogen [Mass/Vol] 18 mg/dL 7-18 [facility] Work Phone: Thin prep Papanicolaou smear with manual screeningon 08-18-2022 Thin prep Papanicolaou smear with manual screening 19 U/L 15-37 [facility] Work Phone: Thin prep Papanicolaou smear with manual screening 4 5-15 [facility] Work Phone: No Panel Informationon 06-30 Thyroid Stimulating Hormone (TSH) 2.83 uIU/mL 0.358-3.74 [facility] Work Phone: Absolute lymphocyte counton 02-23-2022 Lymphocytes Auto (Unsp spec) [#/Vol] 1.24 10*3/uL 0.83-4.51 [facility] Work Phone: Basophil percentageon 2021 Basophils/100 WBC (Bld) 0.4 % 0-1 [facility] Work Phone: Bilirubin [Mass/Vol] 0.40 mg/dL 0.20-1.00 [facility] Work Phone: Comment on above: For patients on eltr ombopag therapy, use of Dimension [place] TBIL is not recommended. Chloride [Moles/Vol] 105 mmol/L 98-107 [facility] Work Phone: Eosinophils/100 WBC (Bld) 3.4 % 0-5 [facility] Work Phone: Glucose [Mass/Vol] 94 mg/dL 74-106 [facility] Work Phone: [phone] Neutrophils (Bld) [#/Vol] 5.3 10*3/uL 2.0-7.7 [facility] Work Phone: Neutrophils/100 WBC (Bld) 69.2 % 47-70 [facility] Work Phone: [phone] Potassium [Moles/Vol] 4.1 mmol/L 3.5-5.1 [facility] Work Phone: Protein [Mass/Vol] 6.9 g/dL 6.4-8.2 [facility] Work Phone: [phone] Sodium [Moles/Vol] 139 mmol/L 136-145 [facility] Work Phone: [phone] WBC (Bld) [#/Vol] 7.6 10*3/uL 4.4-11.0 [facility] Work Phone: [phone] Blood erythrocytes count (nu mber/volume)on 02-23-2022 RBC (Bld) [#/Vol] 4.84 10*6/uL 4.2-5.4 [facility] Work Phone: [phone] Blood hemoglobin measurement (mass/volume)on 02-23-2022 Hemoglobin (Bld) [Mass/Vol] 13.7 g/dL 12.0-15.0 [facility] Work Phone: Blood lymphocytes/100 leukoc yteson 02-23-2022 Lymphocytes/100 WBC (Bld) 16.3 % 19-41 [facility] Work Phone: Blood monocytes/100 leukocyt eson 02-23-2022 Monocytes/100 WBC (Bld) 10.4 % 0-10 [facility] Work Phone: Blood platelet mean volumeon 02-23-2022 Platelet mean volume (Bld) [Entitic vol] 8.9 fL 6.2-12.0 [facility] Work Phone: Determination of erythrocyte mean corpuscular volume (MCV)on 02-23-2022 MCV (RBC) [Entitic vol] 85.5 fL 81-99 [facility] Work Phone: Hematocrit Auto (Bld) [Volum e fraction]on 02-23-2022 Hematocrit (Bld) [Volume fraction] 41.4 % 37-47 [facility] Work Phone: Laboratory - Chemistry and C hemistry - challengeon 02-23-2022 ALP [Catalytic activity/Vol] 69 U/L 45-117 [facility] Work Phone: ALT [Catalytic activity/Vol] 26 U/L 13-56 [facility] Work Phone: CO2 [Moles/Vol] 29.0 mmol/L 21.0-32.0 [facility] Work Phone: Globulin (S) [Mass/Vol] 3.5 g/dL 2.2-4.2 [facility] Work Phone: Urea nitrogen/Creatinine [Mass ratio] 17.6 mg/mg 10-20 [facility] Work Phone: Laboratory - Hematology and Cell countson 02-23-2022 Erythrocyte distribution width (RBC) [Entitic vol] 43.7 fL 35.1-43.9 [facility] Work Phone: Erythrocyte distribution width (RBC) [Ratio] 13.9 % 11.6-14.6 [facility] Work Phone: Immature granulocytes/100 WBC (Bld) 0.300 % 0.0-0.9 [facility] Work Phone: Comment on above: IG% - Immature Granu locytes (promyelocytes, myelocytes and metamyelocytes) > 1% indicates that a LEFT SHIFT is Present. MCH (RBC) [Entitic mass] 28.3 pg 27.0-32.0 [facility] Work Phone: Nucleated RBC/100 WBC (Bld) [Ratio] 0 % 0-5 [facility] Work Phone: MCHC Auto (RBC) [Mass/Vol]on 02-23-2022 MCHC (RBC) [Mass/Vol] 33.1 g/dL 32-36 [facility] Work Phone: No Panel Informationon 02-23 Estimated GFR (MDRD) Amer 111 mL/min >60 [facility] Work Phone: Comment on above: GFR Calc Estimated GFR (MDRD) Non-Af Amer 92 mL/min >60 [facility] Work Phone: Comment on above: Non- GFR Calc Thyroid Stimulating Hormone (TSH) 5.18 uIU/mL 0.358-3.74 [facility] Work Phone: Vitamin D 25-Hydroxy 32.8 ng/mL [facility] Work Phone: Comment on above: Vitamin D 25(OH) Sta tus Range Deficiency <20 ng/mL (50nmol/L) Insufficiency 20 - 30 ng/mL (50 - 75 nmol/L) Sufficiency 30 - 100 ng/mL (75 - 250 nmol/L) Toxicity >100 ng/mL (>250 nmol/L) Platelets bldon 02-23-2022 Platelets (Bld) [#/Vol] 272 10*3/uL 150-450 [facility] Work Phone: Serum or plasma albumin manoj urement (mass/volume)on 02-23-2022 Albumin [Mass/Vol] 3.4 g/dL 3.2-5.0 [facility] Work Phone: Serum or plasma albumin/glob ulin mass ratioon 02-23-2022 Albumin/Globulin [Mass ratio] 1.0 {ratio} 0.9-2.4 [facility] Work Phone: Serum or plasma calcium manoj urement (mass/volume)on 02-23-2022 Calcium [Mass/Vol] 8.8 mg/dL 8.5-10.1 [facility] Work Phone: Serum or plasma creatinine m easurement (mass/volume)on 02-23-2022 Creatinine [Mass/Vol] 0.68 mg/dL 0.55-1.02 [facility] Work Phone: Comment on above: The validity of the calculated GFR & GFRAA in patients over 70 years has not been determined. Clinical correlation is essential. Serum or plasma urea nitroge n measurement (mass/volume)on 02-23-2022 Urea nitrogen [Mass/Vol] 12 mg/dL 7-18 [facility] Work Phone: Thin prep Papanicolaou smear with manual screeningon 02-23-2022 Thin prep Papanicolaou smear with manual screening 28 U/L 15-37 [facility] Work Phone: Thin prep Papanicolaou smear with manual screening 5 5-15 [facility] Work Phone: Absolute lymphocyte counton 02-16-2022 Lymphocytes Auto (Unsp spec) [#/Vol] 1.05 10*3/uL 0.83-4.51 [facility] Work Phone: Basophil percentageon 2021 Basophils/100 WBC (Bld) 0.3 % 0-1 [facility] Work Phone: Bilirubin [Mass/Vol] 0.40 mg/dL 0.20-1.00 [facility] Work Phone: Comment on above: For patients on eltr ombopag therapy, use of [place] TBIL is not recommended. Chloride [Moles/Vol] 106 mmol/L 98-107 [facility] Work Phone: Eosinophils/100 WBC (Bld) 4.7 % 0-5 [facility] Work Phone: Glucose [Mass/Vol] 81 mg/dL 74-106 [facility] Work Phone: Neutrophils (Bld) [#/Vol] 3.9 10*3/uL 2.0-7.7 [facility] Work Phone: Neutrophils/100 WBC (Bld) 65.1 % 47-70 [facility] Work Phone: Potassium [Moles/Vol] 3.9 mmol/L 3.5-5.1 [facility] Work Phone: Protein [Mass/Vol] 6.5 g/dL 6.4-8.2 [facility] Work Phone: Sodium [Moles/Vol] 140 mmol/L 136-145 [facility] Work Phone: WBC (Bld) [#/Vol] 6.0 10*3/uL 4.4-11.0 [facility] Work Phone: Blood erythrocytes count (nu mber/volume)on 02-16-2022 RBC (Bld) [#/Vol] 4.72 10*6/uL 4.2-5.4 [facility] Work Phone: Blood hemoglobin measurement (mass/volume)on 02-16-2022 Hemoglobin (Bld) [Mass/Vol] 13.4 g/dL 12.0-15.0 [facility] Work Phone: Blood lymphocytes/100 leukoc yteson 02-16-2022 Lymphocytes/100 WBC (Bld) 17.5 % 19-41 [facility] Work Phone: Blood monocytes/100 leukocyt eson 02-16-2022 Monocytes/100 WBC (Bld) 12.1 % 0-10 [facility] Work Phone: Blood platelet mean volumeon 02-16-2022 Platelet mean volume (Bld) [Entitic vol] 8.9 fL 6.2-12.0 [facility] Work Phone: Determination of erythrocyte mean corpuscular volume (MCV)on 02-16-2022 MCV (RBC) [Entitic vol] 87.7 fL 81-99 [facility] Work Phone: Erythrocyte sedimentation ra ria 02-16-2022 ESR (Bld) [Velocity] 11 mm/h 0-30 [facility] Work Phone: Hematocrit Auto (Bld) [Volum e fraction]on 02-16-2022 Hematocrit (Bld) [Volume fraction] 41.4 % 37-47 [facility] Work Phone: Laboratory - Chemistry and C hemistry - challengeon 02-16-2022 ALP [Catalytic activity/Vol] 64 U/L 45-117 [facility] Work Phone: ALT [Catalytic activity/Vol] 21 U/L 13-56 [facility] Work Phone: CO2 [Moles/Vol] 28.0 mmol/L 21.0-32.0 [facility] Work Phone: Cobalamin (Vitamin B12) [Mass/Vol] 346 pg/mL 211-911 [facility] Work Phone: Globulin (S) [Mass/Vol] 3.2 g/dL 2.2-4.2 [facility] Work Phone: Urea nitrogen/Creatinine [Mass ratio] 14.0 mg/mg 10-20 [facility] Work Phone: Laboratory - Hematology and Cell countson 02-16-2022 Erythrocyte distribution width (RBC) [Entitic vol] 44.8 fL 35.1-43.9 [facility] Work Phone: Erythrocyte distribution width (RBC) [Ratio] 13.8 % 11.6-14.6 [facility] Work Phone: Immature granulocytes/100 WBC (Bld) 0.300 % 0.0-0.9 [facility] Work Phone: Comment on above: IG% - Immature Granu locytes (promyelocytes, myelocytes and metamyelocytes) > 1% indicates that a LEFT SHIFT is Present. MCH (RBC) [Entitic mass] 28.4 pg 27.0-32.0 [facility] Work Phone: Nucleated RBC/100 WBC (Bld) [Ratio] 0 % 0-5 [facility] Work Phone: MCHC Auto (RBC) [Mass/Vol]on 02-16-2022 MCHC (RBC) [Mass/Vol] 32.4 g/dL 32-36 [facility] Work Phone: No Panel Informationon 02-16 Anti-Nuclear Antibody Screen Negative Negative [facility] Work Phone: Comment on above: Performed at: [place] [id number] Director: Houston Bowden PhD, Phone: [phone] Estimated GFR (MDRD) Amer 118 mL/min >60 [facility] Work Phone: Comment on above: GFR Calc Estimated GFR (MDRD) Non-Af Amer 98 mL/min >60 [facility] Work Phone: Comment on above: Non- GFR Calc Vitamin D 25-Hydroxy 34.6 ng/mL [facility] Work Phone: Comment on above: Vitamin D 25(OH) Sta tus Range Deficiency <20 ng/mL (50nmol/L) Insufficiency 20 - 30 ng/mL (50 - 75 nmol/L) Sufficiency 30 - 100 ng/mL (75 - 250 nmol/L) Toxicity >100 ng/mL (>250 nmol/L) Platelets bldon 02-16-2022 Platelets (Bld) [#/Vol] 257 10*3/uL 150-450 [facility] Work Phone: Serum or plasma C reactive p rotein measurement (mass/volume)on 02-16-2022 CRP [Mass/Vol] 6.72 mg/L 0.0-3.0 [facility] Work Phone: Comment on above: C-Reactive Protein ( CRP) provides useful information for thediagnosis, therapy and monitoring of inflammatory processesand associated diseases. For the evaluation of Relative Riskfor Cardiovascular Disease, a High Sensitivity CRP (HSCRP)should be ordered. Serum or plasma albumin manoj urement (mass/volume)on 02-16-2022 Albumin [Mass/Vol] 3.3 g/dL 3.2-5.0 [facility] Work Phone: Serum or plasma albumin/glob ulin mass ratioon 02-16-2022 Albumin/Globulin [Mass ratio] 1.0 {ratio} 0.9-2.4 [facility] Work Phone: Serum or plasma calcium manoj urement (mass/volume)on 02-16-2022 Calcium [Mass/Vol] 8.2 mg/dL 8.5-10.1 [facility] Work Phone: Serum or plasma creatinine m easurement (mass/volume)on 02-16-2022 Creatinine [Mass/Vol] 0.64 mg/dL 0.55-1.02 [facility] Work Phone: Comment on above: The validity of the calculated GFR & GFRAA in patients over 70 years has not been determined. Clinical correlation is essential. Serum or plasma folate measu rement (mass/volume)on 02-16-2022 Folate [Mass/Vol] 33.60 ng/mL 3.1-55.4 [facility] Work Phone: Serum or plasma urea nitroge n measurement (mass/volume)on 02-16-2022 Urea nitrogen [Mass/Vol] 9 mg/dL 7-18 [facility] Work Phone: Serum rheumatoid factor dete ctionon 02-16-2022 Rheumatoid factor Ql (S) < 10.0 IU/mL <15 [facility] Work Phone: Thin prep Papanicolaou smear with manual screeningon 02-16-2022 Thin prep Papanicolaou smear with manual screening 23 U/L 15-37 [facility] Work Phone: Thin prep Papanicolaou smear with manual screening 6 5-15 [facility] Work Phone: Aldolase ser/plason 11-29-19 22 Aldolase [Catalytic activity/Vol] 8.6 mU/mL [facility] Work Phone: Comment on above: Performed at: [place] [id number] Director: Houston Bowden PhD, Phone: [phone] Laboratory - Chemistry and C hemistry - challengeon 11-29-2021 CK [Catalytic activity/Vol] 67 U/L 26-192 [facility] Work Phone: No Panel Informationon 11-17 Miscellaneous Test Comment MAILED SPECIMEN [facility] Work Phone: Absolute lymphocyte counton 10-29-2021 Lymphocytes Auto (Unsp spec) [#/Vol] 0.90 10*3/uL 0.83-4.51 [facility] Work Phone: Basophil percentageon 2021 Basophils/100 WBC (Bld) 0.6 % 0-1 [facility] Work Phone: Bilirubin [Mass/Vol] 0.60 mg/dL 0.20-1.00 [facility] Work Phone: Comment on above: For patients on eltr ombopag therapy, use of Dim[place] TBIL is not recommended. Chloride [Moles/Vol] 107 mmol/L 98-107 [facility] Work Phone: Eosinophils/100 WBC (Bld) 2.5 % 0-5 [facility] Work Phone: Glucose [Mass/Vol] 93 mg/dL 74-106 [facility] Work Phone: Comment on above: Please note revised GLUCOSE reference range effective 2017. Neutrophils (Bld) [#/Vol] 3.2 10*3/uL 2.0-7.7 [facility] Work Phone: Neutrophils/100 WBC (Bld) 65.7 % 47-70 [facility] Work Phone: Potassium [Moles/Vol] 4.0 mmol/L 3.5-5.1 [facility] Work Phone: Protein [Mass/Vol] 6.8 g/dL 6.4-8.2 [facility] Work Phone: Sodium [Moles/Vol] 141 mmol/L 136-145 [facility] Work Phone: WBC (Bld) [#/Vol] 4.9 10*3/uL 4.4-11.0 [facility] Work Phone: Bilirubin Test strip Ql (U)o n 10-29-2021 Bilirubin Ql (U) Negative Negative [facility] Work Phone: Blood erythrocytes count (nu mber/volume)on 10-29-2021 RBC (Bld) [#/Vol] 4.93 10*6/uL 4.2-5.4 [facility] Work Phone: Blood hemoglobin measurement (mass/volume)on 10-29-2021 Hemoglobin (Bld) [Mass/Vol] 14.3 g/dL 12.0-15.0 [facility] Work Phone: Blood lymphocytes/100 leukoc yteson 10-29-2021 Lymphocytes/100 WBC (Bld) 18.5 % 19-41 [facility] Work Phone: Blood monocytes/100 leukocyt eson 10-29-2021 Monocytes/100 WBC (Bld) 12.3 % 0-10 [facility] Work Phone: Blood platelet mean volumeon 10-29-2021 Platelet mean volume (Bld) [Entitic vol] 9.0 fL 6.2-12.0 [facility] Work Phone: Determination of erythrocyte mean corpuscular volume (MCV)on 10-29-2021 MCV (RBC) [Entitic vol] 88.2 fL 81-99 [facility] Work Phone: Dilute Colby's viper venom timeon 10-29-2021 dRVVT Coag (PPP) [Time] 32.6 s [facility] Work Phone: Erythrocyte sedimentation ra ria 10-29-2021 ESR (Bld) [Velocity] 10 mm/h 0-30 [facility] Work Phone: Hematocrit Auto (Bld) [Volum e fraction]on 10-29-2021 Hematocrit (Bld) [Volume fraction] 43.5 % 37-47 [facility] Work Phone: INR in Blood by Coagulation assayon 10-29-2021 INR Coag (Bld) [Relative time] 1.1 {INR} [facility] Work Phone: Ketones Test strip Ql (U)on 10-29-2021 Ketones Ql (U) Negative Negative [facility] Work Phone: Laboratory - Chemistry and C hemistry - challengeon 10-29-2021 ALP [Catalytic activity/Vol] 65 U/L 45-117 [facility] Work Phone: ALT [Catalytic activity/Vol] 32 U/L 13-56 [facility] Work Phone: CO2 [Moles/Vol] 28.0 mmol/L 21.0-32.0 [facility] Work Phone: Globulin (S) [Mass/Vol] 3.4 g/dL 2.2-4.2 [facility] Work Phone: Urea nitrogen/Creatinine [Mass ratio] 18.3 mg/mg 10-20 [facility] Work Phone: Laboratory - Coagulationon 0 10-29-2021 aPTT Coag (Bld) [Time] 31.0 s 24.1-36.2 [facility] Work Phone: PT Coag (PPP) [Time] 13.4 s 11.7-14.9 [facility] Work Phone: Laboratory - Hematology and Cell countson 10-29-2021 Erythrocyte distribution width (RBC) [Entitic vol] 45.5 fL 35.1-43.9 [facility] Work Phone: Erythrocyte distribution width (RBC) [Ratio] 14.1 % 11.6-14.6 [facility] Work Phone: Immature granulocytes/100 WBC (Bld) 0.400 % 0.0-0.9 [facility] Work Phone: Comment on above: IG% - Immature Granu locytes (promyelocytes, myelocytes and metamyelocytes) > 1% indicates that a LEFT SHIFT is Present. MCH (RBC) [Entitic mass] 29.0 pg 27.0-32.0 [facility] Work Phone: Nucleated RBC/100 WBC (Bld) [Ratio] 0 % 0-5 [facility] Work Phone: Laboratory - Miscellaneous t estson 10-29-2021 Service comment (Unsp spec) [Interp] Comment [facility] Work Phone: Comment on above: Results do not indic ate the presence of a LupusAnticoagulant: abnormal high screening results (PTT-LA,dRVVT, mixing studies), may be due to medication (heparin,warfarin, aspirin), Factor inhibitors, anticardiolipinantibodies, or poor specimen integrity.Performed at: [address] [id number] Director: Micheline Saravia MD, Phone: [phone] MCHC Auto (RBC) [Mass/Vol]on 10-29-2021 MCHC (RBC) [Mass/Vol] 32.9 g/dL 32-36 [facility] Work Phone: Nitrite Test strip Ql (U)on 10-29-2021 Nitrite Ql (U) Negative Negative [facility] Work Phone: No Panel Informationon 10-29 Miscellaneous Test Comment MAILED SPECIMEN [facility] Work Phone: Estimated GFR (MDRD) Amer 144 mL/min >60 [facility] Work Phone: Comment on above: GFR Calc Estimated GFR (MDRD) Non-Af Amer 119 mL/min >60 [facility] Work Phone: Comment on above: Non- GFR Calc Hepatitis B Surface Antigen Non-Reactive Nonreactive [facility] Work Phone: Hepatitis C Antibody Non-Reactive Nonreactive [facility] Work Phone: Comment on above: Non Reactive: < 0.8 Equivocal: >/= 0.8 to < 1.0 Reactive: >/= 1.0The CDC recommends that a reactive/equivocal HCV antibody result be followed up by the HCV Nucleic Acid Amplificationtest (730697) Platelets bldon 10-29-2021 Platelets (Bld) [#/Vol] 250 10*3/uL 150-450 [facility] Work Phone: Protein Test strip Ql (U)on 10-29-2021 Protein Ql (U) Negative Negative [facility] Work Phone: Serum hepatitis B virus surf abril antibody IgG detectionon 10-29-2021 HBV surface IgG Ql (S) Non-Reactive [facility] Work Phone: Comment on above: Non Reactive: Incons istent with immunity less than <10 mIU/mL Reactive: Consistent with immunity greater than or equal to 10 mIU/mL Serum or plasma C reactive p rotein measurement (mass/volume)on 10-29-2021 CRP [Mass/Vol] 3.52 mg/L 0.0-3.0 [facility] Work Phone: Comment on above: C-Reactive Protein ( CRP) provides useful information for thediagnosis, therapy and monitoring of inflammatory processesand associated diseases. For the evaluation of Relative Riskfor Cardiovascular Disease, a High Sensitivity CRP (HSCRP)should be ordered. Serum or plasma albumin manoj urement (mass/volume)on 10-29-2021 Albumin [Mass/Vol] 3.4 g/dL 3.2-5.0 [facility] Work Phone: Serum or plasma albumin/glob ulin mass ratioon 10-29-2021 Albumin/Globulin [Mass ratio] 1.0 {ratio} 0.9-2.4 [facility] Work Phone: Serum or plasma calcium manoj urement (mass/volume)on 10-29-2021 Calcium [Mass/Vol] 9.0 mg/dL 8.5-10.1 [facility] Work Phone: Serum or plasma creatinine m easurement (mass/volume)on 10-29-2021 Creatinine [Mass/Vol] 0.54 mg/dL 0.55-1.02 [facility] Work Phone: Comment on above: The validity of the calculated GFR & GFRAA in patients over 70 years has not been determined. Clinical correlation is essential. Serum or plasma urea nitroge n measurement (mass/volume)on 10-29-2021 Urea nitrogen [Mass/Vol] 10 mg/dL 7-18 [facility] Work Phone: Thin prep Papanicolaou smear with manual screeningon 10-29-2021 Thin prep Papanicolaou smear with manual screening 38 U/L 15-37 [facility] Work Phone: Thin prep Papanicolaou smear with manual screening 6 5-15 [facility] Work Phone: Thin prep Papanicolaou smear with manual screening 34.6 sec [facility] Work Phone: Thin prep Papanicolaou smear with manual screening 1.00 Ratio [facility] Work Phone: Thin prep Papanicolaou smear with manual screening 36.6 sec [facility] Work Phone: Thin prep Papanicolaou smear with manual screening Comment: [facility] Work Phone: Comment on above: No lupus anticoagula nt was detected. Thrombin time in platelet po or plasmaon 10-29-2021 Thrombin time Coag (PPP) [Time] 15.2 sec [facility] Work Phone: Urine blood detectionon RBC Ql (U) Negative Negative [facility] Work Phone: Urine clarityon 10-29-2021 Clarity (U) Sl. Cloudy Clear [facility] Work Phone: Urine color determinationon 10-29-2021 Color (U) Yellow Yellow [facility] Work Phone: Urine creatinine measurement (mass/volume)on 10-29-2021 Creatinine (U) [Mass/Vol] 108.00 mg/dL NO RANGE EST. [facility] Work Phone: Urine glucose detectionon Glucose Ql (U) Normal mg/dl Normal [facility] Work Phone: Urine leukocyte esterase det ection by dipstickon 10-29-2021 Leukocyte esterase Test strip Ql (U) 100 /ul Negative [facility] Work Phone: Urine pHon 10-29-2021 pH (U) 5.0 [pH] [facility] Work Phone: Urine protein measurement (m ass/volume)on 10-29-2021 Protein (U) [Mass/Vol] 7.6 mg/dL 0.0-11.8 [facility] Work Phone: Urine protein/creatinine mas s ratioon 10-29-2021 Protein/Creatinine (U) [Mass ratio] 70 mg/g CRE 0-200 [facility] Work Phone: Urine specific gravity measu rementon 10-29-2021 Specific gravity (U) [Rel density] 1.020 [facility] Work Phone: Urobilinogen Auto test strip Ql (U)on 10-29-2021 Urobilinogen Ql (U) Normal mg/dl Normal [facility] Work Phone: Vital Signs Date Time Vital Sign Value Performing Clinician Faci lity 04-21-2023 10:04-0400 Body temperature 97.6 [degF] Dr. Geoff Perez Work Phone: [facility] 04-21-2023 10:04-0400 Diastolic blood pressure 79 mm[Hg] Dr. Geoff Perez Work Phone: [facility] 04-21-2023 10:04-0400 Heart rate 66 /min Dr. Geoff Perez Work Phone: [facility] 04-21-2023 10:04-0400 Respiratory rate 18 /min Dr. Geoff Perez Work Phone: [facility] 04-21-2023 10:04-0400 SaO2% (BldA) [Mass fraction] 96 % Dr. Geoff Perez Work Phone: [facility] 04-21-2023 10:04-0400 Systolic blood pressure 111 mm[Hg] Dr. Geoff Perez Work Phone: [facility] 04-21-2023 08:06-0400 Body height 175.[address] Geoff Perez Work Phone: [facility] 04-21-2023 08:06-0400 Body mass index (BMI) [Ratio] 29.2 kg/m2 Dr. Geoff Perez Work Phone: [facility] 04-21-2023 08:06-0400 Body weight [address] Geoff Perez Work Phone: [facility] 03-09-2023 09:06-0400 Body mass index (BMI) [Ratio] 29.7 kg/m2 Dr. Geoff Perez Work Phone: [facility] 03-09-2023 09:06-0400 Body temperature 97.1 [degF] Dr. Geoff Perez Work Phone: [facility] 03-09-2023 09:06-0400 Body weight 91.[address] Geoff Perez Work Phone: [facility] 03-09-2023 09:06-0400 Diastolic blood pressure 81 mm[Hg] Dr. Geoff Perez Work Phone: [facility] 03-09-2023 09:06-0400 Heart rate 58 /min Dr. Geoff Perez Work Phone: [facility] 03-09-2023 09:06-0400 Respiratory rate 20 /min Dr. Geoff Perez Work Phone: [facility] 03-09-2023 09:06-0400 SaO2% (BldA) [Mass fraction] 99 % Dr. Geoff Perez Work Phone: [facility] 03-09-2023 09:06-0400 Systolic blood pressure 128 mm[Hg] Dr. Geoff Perez Work Phone: [facility] Encounters Encounter Date Encounter Type Care Provider Facility Start: 03-18-2025 End: 03-18-[address] Geoff Perez MD Work Phone: [facility] Work Phone: Start: 03-18-2025 End: 03-18-[address] Geoff Perez MD -Laboratory Specimen Work Phone: Start: 03-18-2025 End: 03-18-2025 ambulatory [facility] Facility:[facility] Start: 02-21-2025 End: 02-21-[address] Geoff Perez MD Work Phone: [facility] Work Phone: Start: 02-21-2025 End: 02-21-[address] Geoff Perez MD -Laboratory, Specimen Work Phone: Start: 02-21-2025 End: 02-21-2025 ambulatory Geoff Perez Facility:[facility] Start: 01-28-2025 End: 01-28-[address] Geoff Perez MD Work Phone: [facility] Work Phone: Start: 01-28-2025 End: 01-28-[address] Geoff Perez MD -Laboratory Work Phone: Start: 01-28-2025 End: 01-28-2025 ambulatory Geoff Perez Facility:[facility] Start: 01-07-2025 End: 01-07-[address] Geoff Perez MD Work Phone: [facility] Work Phone: Start: 01-07-2025 End: 01-07-2025 Patient encounter procedure Dr. Geoff Perez MD -Cat Scan, [facility] Work Phone: Start: 01-06-2025 End: 01-07-[address] Geoff Perez MD Work Phone: [facility] Work Phone: Start: 01-06-2025 End: 01-06-[address] Geoff Perez MD -Laboratory, Phy Office 3rd Flr Start: 01-06-2025 End: 01-06-2025 ambulatory Geoff Jairo Perez Facility:[facility] Start: 12-17-2024 End: 12-17-[address] Geoff Perez MD Work Phone: [facility] Work Phone: Start: 12-17-2024 End: 12-17-[address] Geoff Perez MD -Laboratory, Phy Office 3rd Flr Start: 12-17-2024 End: 12-17-2024 ambulatory Geoff Chi Chris Facility:[facility] Start: 12-03-2024 End: 12-03-[address] Geoff Perez MD -Laboratory Work Phone: Start: 12-03-2024 End: 12-03-2024 ambulatory Geoff Chi Chris Facility:[facility] Start: 10-03-2024 End: 10-03-[address] Geoff Perez MD -Laboratory, Phy Office 3rd Flr Start: 10-03-2024 End: 10-03-2024 ambulatory Geoff Chi Chris Facility:[facility] Start: 08-07-2024 End: 08-07-2024 ambulatory Geoff Chi Chris Facility:[facility] Start: 07-24-2024 End: 07-24-2024 ambulatory Geoff Chi Chris Facility:[facility] Start: 05-27-2024 End: 05-27-2024 ambulatory Geoff Chi Chris Facility:[facility] Start: 05-02-2024 End: 05-02-2024 ambulatory [facility] Facility:[facility] Start: 12-26-2023 End: 12-26-2023 ambulatory [facility] Work Phone: Start: 12-26-2023 End: 12-26-2023 Patient encounter procedure [facility]-Outpatient Bone Densitometry Work Phone: Start: 11-21-2023 End: 11-21-2023 ambulatory [facility] Work Phone: Start: 11-21-2023 End: 11-21-2023 Patient encounter procedure [facility]-Laboratory, Phy Office 3rd Flr Start: 08-16-2023 End: 08-16-2023 ambulatory [facility] Work Phone: Start: 08-16-2023 End: 08-16-2023 Patient encounter procedure [facility]-Cat Scan, [facility] Work Phone: Start: 08-09-2023 End: 08-09-2023 Patient encounter procedure [facility]-Laboratory, Phy Office 3rd Flr Start: 06-07-2023 End: 06-07-2023 Patient encounter procedure [facility]-Radiology, [facility] Work Phone: Start: 04-21-2023 Non-patient / Non-visit Dr. Gume Perez Work Phone: [facility] Start: 04-21-2023 End: 04-21-2023 Admission to same day surgery center Dr. Geoff Perez Work Phone: [facility]-Endoscopy Work Phone: Start: 04-21-2023 End: 04-21-[address] Geoff Perez Work Phone: [facility] Work Phone: Start: 04-19-2023 End: 04-19-[address] Geoff Perez Work Phone: [facility] Work Phone: Start: 04-19-2023 End: 04-19-[address] Geoff Perez Work Phone: [facility]-Radiology, [facility] Work Phone: Start: 03-09-2023 End: 03-09-[address] Geoff Perez Work Phone: [facility] Work Phone: Start: 02-16-2023 End: 02-16-2023 ambulatory [facility] Work Phone: Start: 02-16-2023 End: 02-16-2023 Patient encounter procedure [facility]-Laboratory, Phy Office 3rd Flr Start: 02-15-2023 End: 02-15-2023 Patient encounter procedure [facility]-Pulmonary Services/Neurology Start: 08-18-2022 End: 08-18-[address] Geoff Perez Work Phone: [facility] Work Phone: Start: 08-18-2022 End: 08-18-[address] [facility] Start: 07-13-2022 Non-patient / Non-visit Dr. Gume Perez Work Phone: [facility] Start: 07-13-2022 End: 07-13-[address] Geoff Perez Work Phone: [facility] Work Phone: Start: 07-13-2022 End: 07-13-[address] Geoff Perez Work Phone: [facility]-Cardiovascular Services Start: 06-30-2022 End: 06-30-2022 ambulatory [facility] Work Phone: Start: 06-30-2022 End: 06-30-2022 [facility] Start: 02-23-2022 End: 02-23-2022 Patient encounter procedure [facility]-Laboratory, [facility] Office 3rd Flr Start: 02-16-2022 End: 02-16-2022 Patient encounter procedure [facility]-Radiology, [facility] Start: 11-29-2021 End: 11-29-2021 Patient encounter procedure [facility]-Laboratory, [place] Start: 11-17-2021 End: 11-17-2021 [facility] Start: 10-29-2021 End: 10-29-2021 Patient encounter procedure [facility]-Laboratory Procedures Date Procedure Procedure Detail Performing [...] energy X-ray absorptiometry Dexa Bone Density Study [facility] Start: 12-26-2023 DXA Bone [Mass/Area] Bone density [facility] Start: 04-21-2023 Patient discharge [facility] Colonoscopy [facility] Patient referral [facility] Work Phone: Immunizations Immunization Date Immunization Notes Care Provider Shirley wong 08-07-2015 tetanus toxoid, redu hill diphtheria toxoid, and acellular pertussis vaccine, adsorbed [facility] Payers Date Payer Category Payer Private Health Insurance [id number] 2023 Self-pay [id number] 2016 Private Health Insurance [id number] Medicare [id number] Unknown ANTHEM [id number] Unknown [id number] 2.16.8 [id number] Unknown [id number] 2.16.8 [id number] Unknown [id number] 2.16.8 [id number] Unknown [id number] 2.16.8 [id number] Unknown [id number] 2.16.8 [id number] Unknown [id number] 2.16.8 [id number] Unknown [id number] 2.16.8 [id number] Unknown [id number] 2.16.8 [id number] Unknown [id number] 2.16.8 [id number] Unknown [id number] 2.16.8 [id number] Unknown [id number] 2.16.8 [id number] Unknown [id number] 2.16.8 [id number] Unknown [id number] 2.16.8 [id number] Unknown [id number] 2.16.8 [id number] Social History Date Type Detail Facility Start: 03-25-2016 End: 04-17-2023 Tobacco smoking status IAIS Unknown if ever smoked [facility] Start: 1955 Sex Assigned At Female [facility] Start: 04-17-2023 Tobacco smoking status NHIS Never smoked tobacco (finding) [facility] Start: 01-01-2025 End: 01-31-2025 Sex Female (finding) [facility] NEGATED: Highlighted row [facility] Goals Date Patient Goal Desired Activity /State Mental Status Date Assessment Result Facility 04-21-2023 Cognitive function Voice/Name [facility] Work Phone: Radiology Diagnostic study note 03-19-2025 Note Date & Type Note Facility 03-19-2025 Radiology Diagnostic study note [facility] [address] [place] [address] Chest PA and Lateral MR#: [id number] Acct: [id number] Name: CHRIS LARSEN Rep #: [id number] : 1955 F 70 From: Delvis Ashraf MD PCP: Dr. Geoff Perez MD Status: ARGENIS JUSTIN Study:Chest PA and Lateral Date of Exam: 03/18/25 Exam# [id number] Ordering Dr: Geoff Perez MD PROCEDURE: CHEST PA AND LATERAL 03/18/2025 REASON FOR EXAM: SOB TECHNIQUE: Frontal and lateral views of the chest. COMPARISON: 06/07/2023 FINDINGS: The lungs appear clear. The cardiac and mediastinal contours appear within limits. Old appearing right-sided rib fracture deformities. Upper lumbar compression deformity again noted. RAD/Chest PA and Lateral IMPRESSION: No evidence of acute disease. Reading Location: [id number] CC: Dr. Geoff Perez MD ~ Communications Professor: Signed [facility] Radiology Diagnostic study note 01-07-2025 Note Date & Type Note Facility 01-07-2025 Radiology Diagnostic study note [facility] [address] [place], [place] [address] CTA Chest W/WO Contrast MR#: [id number] Acct: [id number] Name: CHRIS LARSEN Rep #: [id number] : 1955 F 69 From: Aarti Hyde MD PCP: Dr. Geoff Perez MD Status: ARGENIS JUSTIN Study:CTA Chest W/WO Contrast Date of Exam: 01/07/25 Exam# [id number] Ordering Dr: Geoff Perez MD EXAM: CT [...] evaluated due to suboptimal opacification. Reading [facility] CC: Dr. Geoff Perez MD ~ Communications Professor: Signed [facility] Procedure note 04-21-2023 Note Date & Type Note Facility 04-21-2023 Procedure note [facility] Procedure note 04-21-2023 Note Date & Type Note Facility 04-21-2023 Procedure note [facility] Evaluation note Note Date & Type Note Facility Evaluation note No assessment information availa ble [facility] Work Phone: Evaluation note Note Date & Type Note Facility Evaluation note Diagnosis Onset Date Positive colorectal cancer s creening using Cologuard test acute [facility] Work Phone: History and physical note Note Date & Type Note Facility History and physical note Note Date/Time April 21, 2023 9:18am [facility] Medical Records Department [address] [place] [address] History & Physical Exam 04/21/23917 MR#: [id number] Acct: [id number] Name: CHRIS LARSEN Rep #:[id number] : 1955 68 From: [place] hernandez MD PCP: Dr. Geoff Perez MD Status:REG S DC Location: [place] [address] History and Physical Date of Admission: 04/21/23 [...] proceed with procedure. [place] Valdez MD Pager: [facility] [address] [place] [address], [address] [place] [address] Office: I have examined the patient and the H&P has been reviewed. There are no clinicalchanges since date of exam. 04/21/23 0918 <Electronically signed by [place] Valdez MD> Cosigner Signature (if applicable): CC: Dr. [place] Valdez MD; Dr. Geoff Perez MD~ Signed [facility] Work Phone: Reason for referral (narrative) Note Date & Type Note Facility Reason for referral (narrative) No reason for referral information available [facility] Work Phone: Chief Complaint and Reason [...] March 25, 2016 5 :00pm Power of Livestock Sales Representative No March 25, 2016 5:00pm Advance Directive Response Recorded Date/ Time Name of Medical Power of Livestock Sales Representative SPOUSE April 17, 2023 1:23pm Living Will Yes April 17, 2023 1:23pm Power of Livestock Sales Representative Yes April 17 1:23pm Advance Directive Response Recorded Date/ Time Living Will Yes April 17, 2023 1:23pm Power of Livestock Sales Representative Yes April 17 1:23pm Advance Directive Response Recorded Date/ Time Living Will Yes April 17, 2023 12:23pm Power of Livestock Sales Representative Yes April 17 12:23pm Summary Purpose Family [...] Status: Inactive Member Role Status Dates Dr. eGoff Perez MD Primary Care Provider Active Start: March 18, 2025 End: March 18, 2025 Dr. Geoff Perez MD Attending Provider Active Start: March 18, 2025 End: March 18, 2025 Dr. Geoff Perez MD Referring Provider Active Start: March 18, 2025 End: March 18, 2025 INFORMATION SOURCE (unrecogn ized section and content) DATE CREATED AUTHOR 03/21/2025 [facility] FOR RECORDS PERTAINING TO PATIENTS WHO ARE [...] BE BASED ON THE PRIMARY CLINICAL RECORDS. [facility]. provides no warranty or guarantee of the accuracy or completeness of information in this document.
--- NOTE | 2025-04-06 18:43 | PCM.HP.STD ---
HPI - General General Date of Admission: 04/06/25 HPI Narrative CHRIS LARSEN, is a 70 F who presents to the hospital with increasing shortness of breath and chest pressure over the last couple of days. She says that normally her inhalers are able to resolve her asthma exacerbation but did not seem to work at this time. She denied any chest pain or lightheadedness. She has had increased shortness of breath with exertion and had extensive wheezing today on evaluation in the ER. Chest x-ray was negative for consolidation, she has no leukocytosis or fever. Initially when she came in she was requiring 2 L of oxygen via nasal cannula however after couple breathing treatments and a dose of steroids she is 93% on room air however she was hypoxic into the 80s with ambulation necessitating observation overnight. Initial troponin was 8, EKG is nonischemic and no significant medical history to have concerns for any cardiac etiology especially given the clinical findings. [facility] Medical History Wears glasses Cancer Post-menopausal Depression Non-smoker Asthma Home Medications ?Medication ?Instructions ?Recorded ?Last Taken ?Type budesonide-formoterol HFA 160 1 inhaler PO DAILY 08/07/15 Unknown History mcg-4.5 mcg/actuation aerosol inhaler (Symbicort) multivitamin with minerals-folic 1 tab PO DAILY 04/17/23 Unknown History acid 200 mcg chewable tablet (Multivitamin Gummies) albuterol sulfate 90 mcg/actuation 2 puff inhalation Q4H 04/06/25 Unknown History aerosol inhaler levothyroxine 50 mcg tablet 50 mcg PO DAILY 04/06/25 Unknown History oxybutynin chloride 5 mg tablet 5 mg PO BID 04/06/25 Unknown History venlafaxine 37.5 mg tablet 37.5 mg PO DAILY 04/06/25 Unknown History Allergy/AdvReac Type Severity Reaction Status Date / Time cat dander Allergy dyspnea Verified 04/06/25 14:46 Family History (Updated 04/06/25 @ 18:[address] Carlos Barajas MD) Other Cancer Surgical History Previous section Social History Smoking Status: Former smoker ROS Constitutional Constitutional: Denies chills, fatigue, fever(s) or malaise Eyes Eyes: Denies blurry vision ENT HEENT: Denies headache(s) or nasal discharge Cardiovascular Cardiovascular: Denies chest pain, dyspnea on exertion or syncope Respiratory/Chest Respiratory/Chest: Reports cough, shortness of breath at rest and shortness of breath with exertion Gastrointestinal Gastrointestinal: Denies constipation, diarrhea, nausea or vomiting Genitourinary Genitourinary: Denies dysuria Neurologic Neurologic: Denies focal weakness, numbness or tremor(s) Psychiatric Psychiatric: Denies anxiety or depression Vital Signs Vital Signs Vital Signs: 04/06/25 14:43 04/06/25 14:46 04/06/25 14:46 Temperature 97.8 F 97.8 F Temperature Source Temporal Oral Pulse Rate 105 H 105 H Respiratory Rate 30 H 30 H Respiratory Effort Respiratory Depth Respiratory Pattern Blood Pressure 147/87 H 147/87 H Blood Pressure Mean 107 107 Pulse Ox 83 96 96 Oxygen Delivery Method Room Air Nasal Cannula Nasal Cannula Oxygen Flow Rate (L/min) 4 4 04/06/25 15:04 04/06/25 15:18 04/06/25 15:23 Temperature Temperature Source Pulse Rate 111 H Respiratory Rate 22 H Respiratory Effort Short of Breath Labored Respiratory Depth Shallow Respiratory Pattern Tachypnea Tachypnea Blood Pressure Blood Pressure Mean Pulse Ox Oxygen Delivery Method Nasal Cannula Oxygen Flow Rate (L/min) 4 4 04/06/25 15:33 04/06/25 15:43 04/06/25 15:46 Temperature 98.3 F Temperature Source Oral Pulse Rate 115 H 105 H Respiratory Rate 22 H 22 H Respiratory Effort Respiratory Depth Respiratory Pattern Blood Pressure 151/109 H 148/87 H Blood Pressure Mean 123 107 Pulse Ox 96 97 94 Oxygen Delivery Method Nasal Cannula Nasal Cannula Nasal Cannula Oxygen Flow Rate (L/min) 3 2 2 04/06/25 17:00 04/06/25 18:00 04/06/25 18:14 Temperature 98.2 F Temperature Source Pulse Rate 97 99 100 Respiratory Rate 18 16 15 Respiratory Effort Respiratory Depth Respiratory Pattern Blood Pressure 140/86 H 150/85 H 160/75 H Blood Pressure Mean 104 106 103 Pulse Ox 94 97 93 Oxygen Delivery Method Room Air Oxygen Flow Rate (L/min) Weight Weight: 191 lb 2.252 oz Body Mass Index (BMI) 28.2 Physical Exam Narrative General: Alert, Oriented x3, Cooperative, No apparent distress HEENT: Atraumatic, PERRLA, EOMI, Normocephalic Oral: Moist Mucosa Neck: Supple, No JVD Lungs: Diminished, Normal air movement, No rhonchi, scattered wheeze, No rales Cardiovascular: Regular rate, Regular Rhythm, Normal S1, Normal S2, No murmurs Abdomen: Soft, Non Tender, Non-Distended, No Hepato-splenomegaly Extremities: No edema, Capillary Refill Less than 3 Seconds Skin: No rashes, No breakdown Musculoskeletal: No Tenderness to Palpation of Joints or Extremities Neurological: No focal neurological deficits, Motor Exam 5/5 strength throughout, Sensory exam intact to light touch and pain Psych/Mental Status: Normal Affect, Appropriate Results Lab / Micro Data 04/06/25 15:00 04/06/25 15:00 Labs: Laboratory Results - last 24 hr 04/06/25 15:00: WBC 7.8, RBC 5.30, Hgb 15.4 H, Hct 44.9, MCV 84.7, MCH 29.1, MCHC 34.3, RDW Std Deviation 41.7, RDW Coeff of Eboni 13.5, Plt Count 234, MPV 8.9, Immature Gran % (Auto) 0.400, Neut % (Auto) 57.8, Lymph % (Auto) 20.6, [place] % (Auto) 12.2 H, Eos % (Auto) 8.2 H, Baso % (Auto) 0.8, Absolute Neuts (auto) 4.5, Absolute Lymphs (auto) 1.60, Nucleated RBC % 0, Sodium 141, Potassium 3.9, Chloride 104, Carbon Dioxide 25.7, Anion Gap 11, BUN 8, Creatinine 0.68 L, Estim Creat Clear Calc 77.95, Est GFR (MDRD) Non-Af 94, BUN/Creatinine Ratio 11.7, Glucose 121 H, Calcium 9.4, Troponin T High Sens 8 Micro: Microbiology 04/06/25 15:19 Mucosa - Nose SARS-CoV-2, Influenza & RSV (PCR) - Final Imaging Radiology Impression Chest X-Ray 04/06/25 15:50 IMPRESSION: No Acute Findings. Reading Location: [facility] Assessment & Plan Assessment/Plan (1) Hypoxia: (2) Asthma exacerbation: PLAN: Plan 1. Acute hypoxic respiratory sufficiency secondary to an asthma exacerbation ? Continue with DuoNebs ? Continue with daily prednisone ? Will recommend incentive spirometry and Pep therapy on the inpatient side ? Will need an ambulatory pulse ox prior to discharge ? She is currently only requiring oxygen with ambulation 2. Hypothyroidism ? Stable ? Continue with Synthroid 3. Anxiety/depression ? Stable ? Continue with Effexor 4. Incontinence ? Continue with oxybutynin ? Stable DVT: Ambulation Charges/Coding Visit Charges Inpatient E&M: 71222 Init Hosp L2
--- NOTE | 2025-04-06 18:45 | CASEMGMT ---
Care Management Face to Face with patient for initial transition planning/care coordination assessment in the ED.? This administrative underwriter introduced self and role at [facility]. Patient alert and oriented. Patient willing to participate in assessment and is able to answer all questions appropriately.? Care providers, pharmacy, and demographics verified. Patient?s was also present and assisted with the assessment as needed. Admitting Diagnosis: Asthma exacerbation Other diagnosis history: Including but not limited to: Cancer, Asthma, and Depression. PCP: Dr. Perez Specialists: Pulmnologist: Dr. Velasquez [facility]erred [facility]acy: [facility] Insurance: Medicare, Part A and B. Prescription Benefit: Denied.? May benefit from resources for reduced cost prescription medication programs. Living Will/HPOA: ?Yes. Land Law Examiner requested a copy of the paperwork for patient?s medical records and pateint?s , Sanjay, stated he will bring it in on the next date he comes to the hospital. LNOK: Patient?s .? Patient also has 3 sons, all who reside in [place]. Garett, age 42, Eb, age 40 and Hector, age 32. Living Arrangements: Patient lives with her in a [id number].? Patient?s primary bed and bath are on the second floor.? There are 2 steps leading in/out of the home ?with a handrail and 13-15 leading from first floor to second floor with a handrail. Patient reported she is able to navigate all steps without difficulty. Patient denied any environmental barriers although there is a potential concern with presenting symptoms. Transportation: Both patient and patient?s drive. Patient denied any transportation issues. DME: Denied HHC: Denied SNF/Rehab: Denied Community Resources: Denied Behavioral Health History: Patient has a history of depression which patient reported is successfully treated with medication. Patient goals: Patient wishes to discharge home when medically ready, and denied need for home health care at this time. Patient denies any further needs or concerns at this time. Disposition Plan: admission to acute; RN CM/SW to follow for discharge planning needs that may arise. Rina Vora, INTERACTIVE MEDIA DIRECTOR, STRUCTURER
[2025-04-06 19:09] LABS: Troponin T High Sens 2 HR 7 ng/L (<=14)
--- OUTSIDE RECORDS SUMMARY | 2025-04-06 20:17 | XMS RPT_ITS | CCD ---
Author Organization [facility] Care Team Providers Care Steam Drier Tender Name Role Phone Dr. Geoff Perez Chi Primary Care Provider Dr. Livan Gramajo Attending Provider Dr. Shay Roland Referring Provider Dr. Geoff Perez Chi Primary Care Provider Chris, Dr. Geoff Gill Referring Provider Dr. Richmond Valdez Attending Provider Dr. Richmond Valdez Other Provider Chris GRAY, Dr. Geoff Gill Primary Care Provider [phone] Chris GRAY, Dr. Geoff Gill Attending Provider [...] Unavailable Chris, Geoff Chi Primary Care Unavailable Chris GRAY, Dr. Geoff Gill Primary Care Provider Chris GRAY, Dr. Geoff Gill Attending Provider [phone] Chris GRAY, Dr. Geoff Gill Referring Provider Dr. Shay Simpson DO Emergency Provider [phone] Jenn GRAY, Dr. Carlos Live Admit Provider Jenn GRAY, Dr. Carlos Live Attending Provider Jenn GRAY, Dr. Carlos Live Other Provider Medications Current Medications Medication Drug Class(es) Dates Sig (Normalized) Sig (Original) [id number] 200 actuat albuterol 0.09 mg/actuat metered dose inhaler (1 source) beta2-Adrenergic Agonist Start: 04-06-2025 Albuterol Sulfate 90 mcg/actuation HFA aerosol inhaler Active 2 NMA INHALATION Q4H April 06, 2025 12:00am Budesonide-Formoter ol (19 sources) Corticosteroid, beta2-Adrenergic Agonist Start: 08-07-2015 Budesonide-Formote rol (Symbicort) 1 INHALER inhaler Active 1 INHALER PO DAILY August 06, 2015 11:00pm Start: 08-07-2015 Budesonide-For moterol (Symbicort) 1 INHALER inhaler Active 1 INHALER PO DAILY August 07, 2015 12:00am Start: 08-07-2015 Budesonide-For moterol (Symbicort) 1 INHALER inhaler Active 1 INHALER PO DAILY August 07, 2015 12:00am levothyroxine sodium 0.05 mg oral tablet (1 source) l-Thyroxine Start: 04-06-2025 take 1 tablet by mouth once daily Levothyroxine 50 mcg tablet Active 50 ug PO DAILY April 06, 2025 12:00am Multivit With Min-Folic Acid (Multivitamin Gummies) 200 mcg Tablet,Chewable (13 sources) Start: 04-17-2023 take 1 tablet by [...] TABLET PO DAILY April 17, 2023 12:00am oxybutynin chloride 5 mg oral tablet (1 source) Cholinergic Muscarinic Antagonist Start: 04-06-2025 take 1 tablet by mouth twice daily Oxybutynin Chloride 5 mg tablet Active 5 mg PO TWICE A DAY April 06, 2025 12:00am venlafaxine 37.5 mg oral tablet (20 sources) Serotonin and Norepinephrine Reuptake Inhibitor Start: 04-06-2025 take 1 tablet by mouth once daily Venlafaxine 37.5 mg tablet Active 37.5 mg PO DAILY April 06, 2025 12:00am Start: 08-07-2015 End: 04-06-2025 take 1 capsule by mouth once daily Venlafaxine 75 MG capsule,extended release 24hr Discontinued 75 mg PO DAILY August 07, 2015 12:00am April 06, 2025 3:07pm Completed/Discontinued Medications Medication Drug Class(es) Dates Sig (Normalized) Sig (Original) acetaminophen 325 mg / oxyCODONE hydrochloride 5 mg oral tablet (19 sources) Opioid Agonist Start: 03-25-2016 End: 03-09-2023 [...] 2023 8:09am ibuprofen 800 mg oral tablet (19 sources) Nonsteroidal Anti-inflammatory Drug Start: 03-25-2016 End: 03-09-2023 take 1 tablet by mouth three times daily as needed for pain Ibuprofen (Motrin) 800 MG tablet Discontinued 800 mg PO 3 TIMES DAILY NEEDED as needed for Pain March 25, 2016 5:36pm March 09, 2023 9:09am Problems Active Problems Problem Classification Problem Date Documented Da te Episodic/Chronic Asthma (2 sources) Exacerbation of asthma; Translations: [Unspecified asthma with (acute) exacerbation] 04-06-2025 Chronic Other gastrointestinal disorders (13 sources) Stool DNA-based colorectal cancer screening positive; Translations: [Other fecal abnormalities] 03-09-2023 Episodic Other gastrointestinal disorders (2 sources) Other fecal abnormalities; Translations: [Abnormal feces] 03-09-2023 Episodic Other lower respiratory disease (1 source) Shortness of breath; Translations: [Shortness of breath] Onset: 03-21-2025 Episodic Other lower respiratory disease (2 sources) Other specified respiratory disorders; Translations: [Other specified respiratory disorders] Onset: 01-29-2025 Episodic Other lower respiratory disease (2 sources) Hypoxia; Translations: [Hypoxemia] 04-06-2025 Episodic Residual codes; unclassified (1 source) Chills [...] Range Facility Absolute lymphocyte countOrd ered By: Shay Simpson on 04-06-2025 Lymphocytes Auto (Unsp spec) [#/Vol] 1.60 10*3/uL 0.83-4.51 [facility] Absolute neutrophil countOrd ered By: Shay Simpson on 04-06-2025 Neutrophils (Bld) [#/Vol] 4.5 10*3/uL 2.0-7.7 [facility] Anion gap in Serum or Plasma Ordered By: Shay Simpson on 04-06-2025 Anion gap [Moles/Vol] 11 mmol/L 5- [facility] Automated lymphocyte count a s percentage of total leukocytesOrdered By: Shay Simpson on 04-06-2025 Lymphocytes/100 WBC Auto (Unsp spec) 20.6 % 19- [facility] BUN/creatinine ratioOrdered By: Shay Simpson on 04-06-2025 Urea nitrogen/Creatinine [Mass ratio] 11.7 mg/mg 10- [facility] Basophil percentageOrdered B y: Shay Simpson on 04-06-2025 Basophils/100 WBC (Bld) 0.8 % 0-1 [facility] Carbon dioxide, total [Moles /volume] in Central venous bloodOrdered By: Shay Simpson on 04-06-2025 CO2 [Moles/Vol] 25.7 mmol/L 21.0-32.0 [facility] Chloride assayOrdered By: Kevin Simpson on 04-06-2025 Chloride [Moles/Vol] 104 mmol/L 98-108 [facility] Eosinophil percentageOrdered By: Shay Simpson on 04-06-2025 Eosinophils/100 WBC (Bld) 8.2 % High 0-5 [facility] Erythrocyte distribution wid th ratioOrdered By: Shay Simpson on 04-06-2025 Erythrocyte distribution width (RBC) [Ratio] 13.5 % 11.6-14.6 [facility] Erythrocyte distribution wid th standard deviationOrdered By: Shay Simpson on 04-06-2025 Erythrocyte distribution width (RBC) [Ratio] 41.7 fl 35.1-43.9 [facility] Glomerular filtration rate ( GFR) estimation/1.73 sq m using serum, plasma, or whole bOrdered By: Shay Simpson on 04-06-2025 GFR/1.73 sq M.predicted among non-blacks MDRD (S/P/Bld) [Vol rate/Area] 94 mL/min/{1.73_m2} >60 [facility] Comment on above: mL/min/1.73m2 CKD-EP I Creatinine Equation (2020) Hematocrit Auto (Bld) [Volum e fraction]Ordered By: Shay Simpson on 04-06-2025 Hematocrit (Bld) [Volume fraction] 44.9 % 37-47 [facility] Hemoglobin measurementOrdere d By: Shay Simpson on 04-06-2025 Hemoglobin (Bld) [Mass/Vol] 15.4 g/dL High 12.0-15.0 [facility] Immature granulocytes/100 WB C Auto (Bld)Ordered By: Shay Simpson on 04-06-2025 Immature granulocytes/100 WBC (Bld) 0.400 % 0.0-0.9 [facility] Comment on above: IG% - Immature Granu locytes (promyelocytes, myelocytes and metamyelocytes) > 1% indicates that a LEFT SHIFT is Present. Influenza virus A and B and SARS-CoV-2 (COVID-19) and Respiratory syncytial virus RNAOrdered By: Shay Simpson on 04-06-2025 SARS-CoV-2 (COVID-19) RNA MAVERICK+probe Ql (Unsp spec) [facility] MCV (mean corpuscular volume ) determinationOrdered By: Shay Simpson on 04-06-2025 MCV (RBC) [Entitic vol] 84.7 fL 81-99 [facility] Mean corpuscular hemoglobin (MCH) determinationOrdered By: Shay Simpson on 04-06-2025 MCH (RBC) [Entitic mass] 29.1 pg 27.0-32.0 [facility] Mean corpuscular hemoglobin concentration (MCHC) determinationOrdered By: Shay Simpson on 04-06-2025 MCHC (RBC) [Mass/Vol] 34.3 g/dL 32-36 [facility] Mean platelet volume determi nationOrdered By: Shay Simpson on 04-06-2025 Platelet mean volume (Bld) [Entitic vol] 8.9 fL 6.2-12.0 [facility] Monocyte percentageOrdered B y: Shay Simpson on 04-06-2025 Monocytes/100 WBC (Bld) 12.2 % High 0-10 [facility] Neutrophil percentageOrdered By: Shay Simpson on 04-06-2025 Neutrophils/100 WBC (Bld) 57.8 % 47-70 [facility] Nucleated red blood cell per centageOrdered By: Shay Simpson on 04-06-2025 Nucleated RBC/100 WBC (Bld) [Ratio] 0 % 0-5 [facility] Platelet countOrdered By: Kevin Simpson on 04-06-2025 Platelets (Bld) [#/Vol] 234 10*3/uL 150-450 [facility] Potassium measurement (mass/ volume)Ordered By: Shay Simpson on 04-06-2025 Potassium (Unsp spec) [Mass/Vol] 3.9 mmol/L 3.3-5.1 [facility] RBC Auto (Bld) [#/Vol]Ordere d By: Shay Simpson on 04-06-2025 RBC (Bld) [#/Vol] 5.30 10*6/uL 4.2-5.4 [facility] Serum creatinine measurement (mass/volume)Ordered By: Shay Simpson on 04-06-2025 Creatinine [Mass/Vol] 0.68 mg/dL Low 0.70-1.20 [facility] Serum glucose measurement (m ass/volume)Ordered By: Shay Simpson on 04-06-2025 Glucose [Mass/Vol] 121 mg/dL High 70-99 [facility] Serum or plasma calcium manoj urement (mass/volume)Ordered By: Shay Simpson on 04-06-2025 Calcium [Mass/Vol] 9.4 mg/dL 7.6-11.0 [facility] Serum or plasma urea nitroge n measurement (mass/volume)Ordered By: Shay Simpson on 04-06-2025 Urea nitrogen [Mass/Vol] 8 mg/dL 4-19 [facility] Sodium levelOrdered By: El Simpson on 04-06-2025 Sodium [Moles/Vol] 141 mmol/L 133-145 [facility] Troponin T.cardiac [Mass/vol ume] in Serum or Plasma by High sensitivity methodOrdered By: Shay Simpson on 04-06-2025 Troponin T.cardiac High sensitivity method [Mass/Vol] 7 ng/L <14 [facility] Troponin T.cardiac High sensitivity method [Mass/Vol] 8 ng/L <14 [facility] White blood cell (WBC) count Ordered By: Shay Simpson on 04-06-2025 WBC (Bld) [#/Vol] 7.8 10*3/uL 4.4-11.0 [facility] Absolute lymphocyte countOrd ered By: [facility] Chris on 03-18-2025 Lymphocytes Auto (Unsp spec) [#/Vol] 1.10 10*3/uL 0.83-4.51 [facility] Absolute neutrophil countOrd ered By: Geoff Chris on 03-18-2025 Neutrophils (Bld) [#/Vol] 4.6 10*3/uL 2.0-7.7 [facility] Anion gap in Serum or Plasma Ordered By: Geoff Perez on 03-18-2025 Anion gap [Moles/Vol] 12 mmol/L 03-06 [facility] Automated lymphocyte count a s percentage of total leukocytesOrdered By: Geoff Perez on 03-18-2025 Lymphocytes/100 WBC Auto (Unsp spec) 16.2 % Low 19-41 [facility] BUN/creatinine ratioOrdered By: Geoff Chris on 03-18-2025 Urea nitrogen/Creatinine [Mass ratio] 11.2 mg/mg 08-11 [facility] Basic Metabolic Profile (BMP )on 03-18-2025 BUN/CRE 11.2 RATIO Normal - [facility] Comment on above: Performed By: #### M , #### [facility] [address] [place], [address] Calcium [Mass/Vol] 9.2 mg/dL Normal 7.6-11.0 [facility] Comment on above: Performed By: #### M , #### [facility] [address] [place], [address] Chloride [Moles/Vol] 106 mmol/L Normal 98-108 [facility] Comment on above: Performed By: #### M , #### [facility] [address] [place], [address] CO2 [Moles/Vol] 23.1 mmol/L Normal 21.0-32.0 [facility] Comment on above: Performed By: #### M , #### [facility] [address] [place], [address] Creatinine [Mass/Vol] 0.69 mg/dL Low 0.70-1.20 [facility] Comment on above: Performed By: #### M , #### [facility] [address] [place], [address] GAP 12 Normal 5-15 [facility] Comment on above: Performed By: #### M , #### [facility] [address] [place], [address] GFR/1.73 sq M.predicted among non-blacks MDRD (S/P/Bld) [Vol rate/Area] 94 mL/min/{1.73_m2} Normal >60 [facility] Comment on above: Result Comment: mL/m in/1.73m2 CKD-EPI Creatinine Equation (2020) Performed By: #### M , #### [facility] [address] [place], [address] Glucose [Mass/Vol] 101 mg/dL High 70-99 [facility] Comment on above: Performed By: #### M , #### [facility] [address] [place], [address] Potassium [Moles/Vol] 4.1 mmol/L Normal 3.3-5.1 [facility] Comment on above: Performed By: #### M , #### [facility] [address] [place], [address] Sodium [Moles/Vol] 141 mmol/L Normal 133-145 [facility] Comment on above: Performed By: #### M , #### [facility] [address] [place], [address] Urea nitrogen [Mass/Vol] 8 mg/dL Normal 4-19 [facility] Comment on above: Performed By: #### M , #### [facility] [address] [place], [address] Basophil percentageOrdered B y: Geoff Perez on 03-18-2025 Basophils/100 WBC (Bld) 0.7 % 0-1 [facility] CBC W/Diff, Automatedon 02-21 Absolute Lymph 1.10 X10 3/uL Normal 0.83-4.51 [facility] Comment on above: Performed By: #### M , #### [facility] [address] [place], [address] Absolute Neut 4.6 X10 3/uL Normal 2.0-7.7 [facility] Comment on above: Performed By: #### M , #### [facility] [address] [place], [address] Basophils/100 WBC (Bld) 0.7 % Normal 0-1 [facility] Comment on above: Performed By: #### M , #### [facility] [address] [place], [address] Eosinophils/100 WBC (Bld) 5.0 % Normal 0-5 [facility] Comment on above: Performed By: #### M , #### [facility] [address] [place], [address] Erythrocyte distribution width (RBC) [Ratio] 13.4 % Normal 11.6-14.6 [facility] Comment on above: Performed By: #### M , #### [facility] [address] [place], [address] Hematocrit (Bld) [Volume fraction] 43.7 % Normal 37-47 [facility] Comment on above: Performed By: #### M , #### [facility] [address] [place], [address] Hemoglobin (Bld) [Mass/Vol] 14.8 g/dL Normal 12.0-15.0 [facility] Comment on above: Performed By: #### M , #### [facility] [address] [place], [address] IG% 0.300 Normal 0.0-0.9 [facility] Comment on above: Result Comment: IG% - Immature Granulocytes (promyelocytes, myelocytes and metamyelocytes) > 1% indicates that a LEFT SHIFT is Present. Performed By: #### M , #### [facility] [address] [place], [address] Lymphocytes/100 WBC (Bld) 16.2 % Low 19-41 [facility] Comment on above: Performed By: #### M , #### [facility] [address] [place], [address] MCH (RBC) [Entitic mass] 29.0 pg Normal 27.0-32.0 [facility] Comment on above: Performed By: #### M , #### [facility] [address] [place], [address] MCHC (RBC) [Mass/Vol] 33.9 g/dL Normal 32-36 [facility] Comment on above: Performed By: #### M , #### [facility] [address] [place], [address] MCV (RBC) [Entitic vol] 85.5 fL Normal 81-99 [facility] Comment on above: Performed By: #### M , #### [facility] [address] [place], [address] Monocytes/100 WBC (Bld) 9.9 % Normal 0-10 [facility] Comment on above: Performed By: #### M , #### [facility] [address] [place], [address] Neutrophils/100 WBC (Bld) 67.9 % Normal 47-70 [facility] Comment on above: Performed By: #### M , #### [facility] [address] [place], [address] Nucleated RBC (Bld) [#/Vol] 0 10*3/uL Normal 0-5 [facility] Comment on above: Performed By: #### M , #### [facility] [address] [place], [address] Platelet mean volume (Bld) [Entitic vol] 8.5 fL Normal 6.2-12.0 [facility] Comment on above: Performed By: #### M , #### [facility] [address] [place], [address] Platelets (Bld) [#/Vol] 243 10*3/uL Normal 150-450 [facility] Comment on above: Performed By: #### M , #### [facility] [address] [place], [address] RBC (Bld) [#/Vol] 5.11 10*6/uL Normal 4.2-5.4 [facility] Comment on above: Performed By: #### M .1999, M100.2400 #### [facility] [address] [place], [address] RDW SD 41.7 fl Normal 35.1-43.9 [facility] Comment on above: Performed By: #### M 100.1999, M100.2400 #### [facility] [address] [place], [address] WBC (Bld) [#/Vol] 6.8 10*3/uL Normal 4.4-11.0 [facility] Comment on above: Performed By: #### M , M100.2400 #### [facility] [address] [place], [address] Carbon dioxide, total [Moles /volume] in Central venous bloodOrdered By: Geoff Perez on 03-18-2025 CO2 [Moles/Vol] 23.1 mmol/L 21.0-32.0 [facility] Chest PA and Lateralon 03-18 Chest PA and L[address] [facility] Imaging Services [address] [place] [address] Chest PA and Lateral MR#: [id number] Acct: [id number] Name: CHRIS LARSEN Rep #: [id number] : [id number] F [id number] From: Livan Ashraf MD PCP: Dr. Geoff Perez MD Status: REG CLI Study: Chest PA and Lateral Date of Exam: 03/18/25 Exam# [id number] Ordering Dr: Geoff Perez MD PROCEDURE: CHEST PA AND LATERAL 03/18/2025 REASON FOR EXAM: SOB TECHNIQUE: Frontal and lateral views of the chest. COMPARISON: 06/07/2023 FINDINGS: The lungs appear clear. The cardiac and mediastinal contours appear within limits. Old appearing right-sided rib fracture deformities. Upper lumbar compression deformity again noted. RAD/Chest PA and Lateral IMPRESSION: No evidence of acute disease. Reading Location: [id number] CC: Dr. Geoff Perez MD Poolroom Table Attendant: Signed Normal [facility] Chloride assayOrdered By: Gume Perez on 03-18-2025 Chloride [Moles/Vol] 106 mmol/L 98-108 [facility] D-Dimer Quantitative (DVT/PE )on 03-18-2025 D-DIMER QUANT 0.38 FEU/ug/m Normal 0.27-0.49 [facility] Comment on above: Result Comment: NORM AL D-Dimer level (<0.50) indicates no DVT or PE. Performed By: #### M 100.2000, M100.2400 #### [facility] [address] [place], [address] Eosinophil percentageOrdered By: Geoff Perez on 03-18-2025 Eosinophils/100 WBC (Bld) 5.0 % 0-5 [facility] Erythrocyte distribution wid th ratioOrdered By: Geoff Perez on 03-18-2025 Erythrocyte distribution width (RBC) [Ratio] 13.4 % 11.6-14.6 [facility] Erythrocyte distribution wid th standard deviationOrdered By: Geoff Perez on 03-18-2025 Erythrocyte distribution width (RBC) [Ratio] 41.7 fl 35.1-43.9 [facility] Glomerular filtration rate ( GFR) estimation/1.73 sq m using serum, plasma, or whole bOrdered By: Geoff Perez on 03-18-2025 GFR/1.73 sq M.predicted among non-blacks MDRD (S/P/Bld) [Vol rate/Area] 94 mL/min/{1.73_m2} >60 [facility] Comment on above: mL/min/1.73m2 CKD-EP I Creatinine Equation (2020) Hematocrit Auto (Bld) [Volum e fraction]Ordered By: Geoff Perez on 03-18-2025 Hematocrit (Bld) [Volume fraction] 43.7 % 37-47 [facility] Hemoglobin measurementOrdere d By: Geoff Perez on 03-18-2025 Hemoglobin (Bld) [Mass/Vol] 14.8 g/dL 12.0-15.0 [facility] Immature granulocytes/100 WB C Auto (Bld)Ordered By: Geoff Perez on 03-18-2025 Immature granulocytes/100 WBC (Bld) 0.300 % 0.0-0.9 [facility] Comment on above: IG% - Immature Granu locytes (promyelocytes, myelocytes and metamyelocytes) > 1% indicates that a LEFT SHIFT is Present. Influenza virus A and B and SARS-CoV-2 (COVID-19) and Respiratory syncytial virus RNAOrdered By: Geoff Perez on 03-18-2025 SARS-CoV-2 (COVID-19) RNA MAVERICK+probe Ql (Unsp spec) [facility] M100.678on 03-18-2025 M100.678 Pending SARS-CoV-2 (COVID 19) Negative INFLUENZA A Negative INFLUENZA B Negative RSV PCR Negative Normal [facility] Comment on above: Performed By: #### M 100.678 #### [facility] [address] [place] [address], [address] MCV (mean corpuscular volume ) determinationOrdered By: Geoff Perez on 03-18-2025 MCV (RBC) [Entitic vol] 85.5 fL 81-99 [facility] Mean corpuscular hemoglobin (MCH) determinationOrdered By: Geoff Perez 03-18-2025 MCH (RBC) [Entitic mass] 29.0 pg 27.0-32.0 [facility] Mean corpuscular hemoglobin concentration (MCHC) determinationOrdered By: Geoff Perez on 03-18-2025 MCHC (RBC) [Mass/Vol] 33.9 g/dL 32-36 [facility] Mean platelet volume determi nationOrdered By: Geoff Perez on 03-18-2025 Platelet mean volume (Bld) [Entitic vol] 8.5 fL 6.2-12.0 [facility] Monocyte percentageOrdered B y: Geoff Perez on 03-18-2025 Monocytes/100 WBC (Bld) 9.9 % 0-10 [facility] Neutrophil percentageOrdered By: Geoff Perez on 03-18-2025 Neutrophils/100 WBC (Bld) 67.9 % 47-70 [facility] Nucleated red blood cell per centageOrdered By: Geoff Perez on 03-18-2025 Nucleated RBC/100 WBC (Bld) [Ratio] 0 % 0-5 [facility] Platelet countOrdered By: Gume Perez on 03-18-2025 Platelets (Bld) [#/Vol] 243 10*3/uL 150-450 [facility] Potassium measurement (mass/ volume)Ordered By: Geoff Perez on 03-18-2025 Potassium (Unsp spec) [Mass/Vol] 4.1 mmol/L 3.3-5.1 [facility] RBC Auto (Bld) [#/Vol]Ordere d By: Geoff Perez on 03-18-2025 RBC (Bld) [#/Vol] 5.11 10*6/uL 4.2-5.4 [facility] Serum creatinine measurement (mass/volume)Ordered By: Geoff Perez 03-18-2025 Creatinine [Mass/Vol] 0.69 mg/dL Low 0.70-1.20 [facility] Serum glucose measurement (m ass/volume)Ordered By: Geoff Perez 03-18-2025 Glucose [Mass/Vol] 101 mg/dL High 70-99 [facility] Serum or plasma calcium manoj urement (mass/volume)Ordered By: Geoff Perez 03-18-2025 Calcium [Mass/Vol] 9.2 mg/dL 7.6-11.0 [facility] Serum or plasma urea nitroge n measurement (mass/volume)Ordered By: Geoff Perez 03-18-2025 Urea nitrogen [Mass/Vol] 8 mg/dL 4-19 [facility] Sodium levelOrdered By: Geoff Perez 03-18-2025 Sodium [Moles/Vol] 141 mmol/L 133-145 [facility] White blood cell (WBC) count Ordered By: Geoff Perez 03-18-2025 WBC (Bld) [#/Vol] 6.8 10*3/uL 4.4-11.0 [facility] Influenza virus A and B and SARS-CoV-2 (COVID-19) and Respiratory syncytial virus RNAOrdered By: Geoff Perez on 02-21-2025 SARS-CoV-2 (COVID-19) RNA MAVERICK+probe Ql (Unsp spec) [facility] M100.678on 02-21-2025 M100.678 Pending SARS-CoV-2 (COVID 19) Negative INFLUENZA A Negative INFLUENZA B Negative RSV PCR Negative Normal [facility] Comment on above: Performed By: #### M 100.1999, M1.2400 #### [facility] [address] [place], [address] Respiratory Cultureon 2024 RESPC GRAM STAIN Mixed normal respiratory nikolas. No Streptococcus pneumoniae, beta-hemolytic Streptococcus or Staphylococcus aureus isolated. Normal [facility] Comment on above: Performed By: #### M 100.1999, .2400 #### [facility] [address] [place], [address] Gram Stainon 01-31-2025 GS GRAM STAIN Acceptable Specimen? Yes (<25 Epithelial cells per/lpf) Gram Stain 1+ Gram positive cocci 1+ Epithelial cells 1+ White Blood Cells Normal [facility] Comment on above: Performed By: #### M 100.1999, M1.2400 #### [facility] [address] [facility] [address] [place], [address] Gram stainOrdered By: Geoff asif on 01-31-2025 Microscopic observation Gram stain Nom (Unsp spec) [facility] Microbial respiratory cultur eOrdered By: Geoff Perez on 01-31-2025 Microorganism identified Cx Nom (Unsp spec) or Staphylococcus aureus isolated. [facility] Influenza virus A and B and SARS-CoV-2 (COVID-19) and Respiratory syncytial virus RNAOrdered By: Geoff Perez on 01-28-2025 SARS-CoV-2 (COVID-19) RNA MAVERICK+probe Ql (Unsp spec) [facility] M100.678on 01-28-2025 M100.678 Pending SARS-CoV-2 (COVID 19) Negative INFLUENZA A Negative INFLUENZA B Negative RSV PCR Negative Normal [facility] Comment on above: Performed By: #### M 100.678 #### [facility] [address] [place], [address] M8200.1000on 01-28-2025 M8200.1000 Normal Reference Ran ge = Negative MRSA DNA Nose Ql MAVERICK+probe GeneXpert Instrument, PCR method MRSA PCR MRSA NEGATIVE Normal [facility] Comment on above: Performed By: #### M 100.2000, M100.2400 #### [facility] [address] [place], [address] MRSA DNA MAVERICK+probe Ql (Nose) Ordered By: Geoff Perez on 01-28-2025 MRSA (PCR) [facility] Nasal methicillin resistant Staphylococcus aureus (MRSA) DNA detection by PCROrdered By: Geoff Perez on 01-28-2025 MRSA DNA MAVERICK+probe Ql (Nose) [facility] CTA Chest W/WO Contraston CTA Chest W/WO Contrast [facility] Imaging Services [address] [place] [address] CTA Chest W/WO Contrast MR#: [id number] Acct: [id number] Name: CHRIS LARSEN Rep #: [id number] : [id number] F [id number] From: Glen Hyde MD PCP: Dr. Geoff Perez MD Status: REG CLI Study: CTA Chest W/WO Contrast Date of Exam: 01/07/25 Exam# [id number] Ordering Dr: Geoff Perez MD EXAM: CT [...] evaluated due to suboptimal opacification. Reading Location: [facility] CC: Dr. Geoff Perez MD Poolroom Table Attendant: Signed Normal [facility] D-Dimer Quantitative (DVT/PE )on 01-06-2025 D-DIMER QUANT 0.50 FEU/ug/m High 0.27-0.49 [facility] Comment on above: Order Comment: CRITI PAMELA VALUE CALLED TO JYOTI GARCIA01/06/25 1606 Silvana Mack.RESULTS READ BACK BY SAME. Result Comment: D-Di salma ELEVATED (>0.49): Additional studies and clinical assessments are indicated to conclude diagnosis of: Deep Vein Thrombosis (DVT) or Pulmonary Embolism (PE) Performed By: #### M 100.2000, M100.2400 #### [facility] [place], [address] D-dimer measurement for deep venous thrombosisOrdered By: Geoff Perez on 01-06-2025 D-Dimer Quantitative (PE/DVT) 0.50 FEU/ug/m High 0.27-0.49 [facility] Comment on above: D-Dimer ELEVATED (>0 .49): Additional studies and clinicalassessments are indicated to conclude diagnosis of:Deep Vein Thrombosis (DVT) or Pulmonary Embolism (PE) Influenza virus A and B and SARS-CoV-2 (COVID-19) and Respiratory syncytial virus RNAOrdered By: Geoff Perez on 01-06-2025 SARS-CoV-2 (COVID-19) RNA MAVERICK+probe Ql (Unsp spec) [facility] M100.678on 01-06-2025 M100.678 Pending SARS-CoV-2 (COVID 19) Negative INFLUENZA A Negative INFLUENZA B Negative RSV PCR Negative Normal [facility] Comment on above: Performed By: #### M 100, M100.2400 #### [facility] [address] [facility] [place], [place], [address] Influenza virus A and B and SARS-CoV-2 (COVID-19) and Respiratory syncytial virus RNAOrdered By: Geoff Perez on 12-17-2024 SARS-CoV-2 (COVID-19) RNA MAVERICK+probe Ql (Unsp spec) [facility] M100.678on 12-17-2024 M100.678 SARS-CoV-2 (COVID 19 ) Negative INFLUENZA A Negative INFLUENZA B Negative RSV PCR Negative Normal [facility] Comment on above: Performed By: #### M , M10 #### [facility] [address] [facility] [place], [place], [address] 76-BV-Bucnety DOrdered By: Zan Perez on 12-03-2024 Vitamin D 25-Hydroxy 30.5 ng/mL [facility] Comment on above: Vitamin D 25(OH) Sta tus Range Deficiency <20 ng/mL (50nmol/L) Insufficiency 20 - 30 ng/mL (50 - 75 nmol/L) Sufficiency 30 - 100 ng/mL (75 - 250 nmol/L) Toxicity >100 ng/mL (>250 nmol/L) Absolute lymphocyte countOrd ered By: Geoff Perez on 12-03-2024 Lymphocytes Auto (Unsp spec) [#/Vol] 1.63 10*3/uL 0.83-4.51 [facility] Absolute neutrophil countOrd ered By: Geoff Perez on 12-03-2024 Neutrophils (Bld) [#/Vol] 5.7 10*3/uL 2.0-7.7 [facility] Albumin to globulin ratioOrd ered By: Geoff Perez on 12-03-2024 Albumin/Globulin [Mass ratio] 1.1 {ratio} 0.9-2.4 [facility] Automated lymphocyte count a s percentage of total leukocytesOrdered By: Geoff Perez on 12-03-2024 Lymphocytes/100 WBC Auto (Unsp spec) 19.6 % 19-41 [facility] Basophil percentageOrdered B y: Geoff Perez on 12-03-2024 Basophils/100 WBC (Bld) 0.4 % 0-1 [facility] Bilirubin, totalOrdered By: Geoff Perez on 12-03-2024 Bilirubin [Mass/Vol] 0.60 mg/dL 0.20-1.00 [facility] Comment on above: For patients on eltr ombopag therapy, use of Dimension [place] TBIL is not recommended. Blood urea nitrogen (BUN)/cr eatinine ratioOrdered By: Geoff Perez on 12-03-2024 Urea nitrogen/Creatinine [Mass ratio] 16.7 mg/mg 10-20 [facility] CBC W/Diff, Automatedon 11-23 Absolute Lymph 1.63 X10 3/uL Normal 0.83-4.51 [facility] Comment on above: Performed By: #### M 100.678 #### [facility] [address] [place], [address] Absolute Neut 5.7 X10 3/uL Normal 2.0-7.7 [facility] Comment on above: Performed By: #### M 100.678 #### [facility] [address] [place], [address] Basophils/100 WBC (Bld) 0.4 % Normal 0-1 [facility] Comment on above: Performed By: #### M 100.678 #### [facility] [address] [place], [address] Eosinophils/100 WBC (Bld) 2.4 % Normal 0-5 [facility] Comment on above: Performed By: #### M 100.678 #### [facility] [address] [place], [address] Erythrocyte distribution width (RBC) [Ratio] 13.1 % Normal 11.6-14.6 [facility] Comment on above: Performed By: #### M 100.678 #### [facility] [address] [place], [address] Hematocrit (Bld) [Volume fraction] 43.7 % Normal 37-47 [facility] Comment on above: Performed By: #### M 100.678 #### [facility] [address] [place], [address] Hemoglobin (Bld) [Mass/Vol] 14.3 g/dL Normal 12.0-15.0 [facility] Comment on above: Performed By: #### M 100.678 #### [facility] [address] [place], [address] IG% 0.200 Normal 0.0-0.9 [facility] Comment on above: Result Comment: IG% - Immature Granulocytes (promyelocytes, myelocytes and metamyelocytes) > 1% indicates that a LEFT SHIFT is Present. Performed By: #### M 100.678 #### [facility] [address] [place], [address] Lymphocytes/100 WBC (Bld) 19.6 % Normal 19-41 [facility] Comment on above: Performed By: #### M 100.678 #### [facility] [address] [place], [address] MCH (RBC) [Entitic mass] 28.5 pg Normal 27.0-32.0 [facility] Comment on above: Performed By: #### M 100.678 #### [facility] [address] [place], [address] MCHC (RBC) [Mass/Vol] 32.7 g/dL Normal 32-36 [facility] Comment on above: Performed By: #### M 100.678 #### [facility] [address] [place], [address] MCV (RBC) [Entitic vol] 87.1 fL Normal 81-99 [facility] Comment on above: Performed By: #### M 100.678 #### [facility] [address] [place], [address] Monocytes/100 WBC (Bld) 9.0 % Normal 0-10 [facility] Comment on above: Performed By: #### M 100.678 #### [facility] [address] [place], [address] Neutrophils/100 WBC (Bld) 68.4 % Normal 47-70 [facility] Comment on above: Performed By: #### M 100.678 #### [facility] [address] [place], [address] Nucleated RBC (Bld) [#/Vol] 0 10*3/uL Normal 0-5 [facility] Comment on above: Performed By: #### M 100.8 #### [facility] [address] [place], [address] Platelet mean volume (Bld) [Entitic vol] 8.6 fL Normal 6.2-12.0 [facility] Comment on above: Performed By: #### M 100.8 #### [facility] [address] [place], [address] Platelets (Bld) [#/Vol] 278 10*3/uL Normal 150-450 [facility] Comment on above: Performed By: #### M 100.678 #### [facility] [address] [place], [address] RBC (Bld) [#/Vol] 5.02 10*6/uL Normal 4.2-5.4 [facility] Comment on above: Performed By: #### M 100.678 #### [facility] [address] [place], [address] RDW SD 41.1 fl Normal 35.1-43.9 [facility] Comment on above: Performed By: #### M 100.8 #### [facility] [address] [place], [address] WBC (Bld) [#/Vol] 8.3 10*3/uL Normal 4.4-11.0 [facility] Comment on above: Performed By: #### M 100.678 #### [facility] [address] [place], [address] Carbon dioxide measurementOr dered By: Geoff Perez on 12-03-2024 CO2 [Moles/Vol] 24.0 mmol/L 21.0-32.0 [facility] Chloride measurementOrdered By: Geoff Perez on 12-03-2024 Chloride [Moles/Vol] 107 mmol/L 98-107 [facility] Comprehensive Metabolic Prof ilon 12-03-2024 Albumin [Mass/Vol] 3.6 g/dL Normal 3.2-5.0 [facility] Comment on above: Performed By: #### M , #### [facility] [address] [place], [address] Albumin/Globulin [Mass ratio] 1.1 {ratio} Normal 0.9-2.4 [facility] Comment on above: Performed By: #### M , 240 #### [facility] [address] [place], [address] ALK P 92 U/L Normal 45-117 [facility] Comment on above: Performed By: #### M , 2400 #### [facility] [address] [place], [address] ALT [Catalytic activity/Vol] 20 U/L Normal 13-56 [facility] Comment on above: Performed By: #### M , 240 #### [facility] [address] [place], [address] AST [Catalytic activity/Vol] 22 U/L Normal 15-37 [facility] Comment on above: Performed By: #### M , #### [facility] [address] [place], [address] Bilirubin [Mass/Vol] 0.60 mg/dL Normal 0.20-1.00 [facility] Comment on above: Result Comment: For patients on eltrombopag therapy, use of Dimension [place] TBIL is not recommended. Performed By: #### M , #### [facility] [address] [place], [address] BUN/CRE 16.7 RATIO Normal 10-20 [facility] Comment on above: Performed By: #### M , #### [facility] [address] [place], [address] CA,Total 8.6 mg/dL Normal 8.5-10.1 [facility] Comment on above: Performed By: #### M , #### [facility] [address] [place], [address] Chloride [Moles/Vol] 107 mmol/L Normal 98-107 [facility] Comment on above: Performed By: #### M , #### [facility] [address] [place], [address] CO2 [Moles/Vol] 24.0 mmol/L Normal 21.0-32.0 [facility] Comment on above: Performed By: #### M , #### [facility] [address] [place], [address] Creatinine [Mass/Vol] 0.72 mg/dL Normal 0.55-1.02 [facility] Comment on above: Result Comment: The validity of the calculated GFR GFRAA in patients over 70 years has not been determined. Clinical correlation is essential. Performed By: #### M , #### [facility] [address] [place], [address] EST GFR - AA 104 mL/min Normal >60 [facility] Comment on above: Result Comment: Afri can Iraqi GFR Calc Performed By: #### M , #### [facility] [address] [place], [address] GAP 8 Normal 5-15 [facility] Comment on above: Performed By: #### M , #### [facility] [address] [place], [address] GFR/1.73 sq M.predicted among non-blacks MDRD (S/P/Bld) [Vol rate/Area] 86 mL/min/{1.73_m2} Normal >60 [facility] Comment on above: Result Comment: Non- GFR Calc Performed By: #### M , #### [facility] [address] [place], [address] Globulin (S) [Mass/Vol] 3.4 g/dL Normal 2.2-4.2 [facility] Comment on above: Performed By: #### M , #### [facility] [address] [place], [address] Glucose [Mass/Vol] 89 mg/dL Normal 74-106 [facility] Comment on above: Performed By: #### M , #### [facility] [address] [place], [address] Potassium [Moles/Vol] 4.1 mmol/L Normal 3.5-5.1 [facility] Comment on above: Performed By: #### M , #### [facility] [address] [place], [address] Sodium [Moles/Vol] 138 mmol/L Normal 136-145 [facility] Comment on above: Performed By: #### M , #### [facility] [address] [place], [address] T PROT 7.0 g/dL Normal 6.4-8.2 [facility] Comment on above: Performed By: #### M , #### [facility] [address] [place], [address] Urea nitrogen [Mass/Vol] 12 mg/dL Normal 7-18 [facility] Comment on above: Performed By: #### M , #### [facility] [address] [place], [address] Eosinophil percentageOrdered By: Geoff Perez on 12-03-2024 Eosinophils/100 WBC (Bld) 2.4 % 0-5 [facility] Erythrocyte distribution wid th ratioOrdered By: Geoff Perez on 12-03-2024 Erythrocyte distribution width (RBC) [Ratio] 13.1 % 11.6-14.6 [facility] Erythrocyte distribution wid th standard deviationOrdered By: Geoff Perez on 12-03-2024 Erythrocyte distribution width (RBC) [Entitic vol] 41.1 fL 35.1-43.9 [facility] Erythrocyte distribution width (RBC) [Ratio] 41.1 fl 35.1-43.9 [facility] Estimated glomerular filtrat ion rate (GFR) AmericanOrdered By: Geoff Perez on 12-03-2024 Estimated GFR (MDRD) Amer 104 mL/min >60 [facility] Comment on above: GFR Calc Glomerular filtration rate ( GFR) estimationOrdered By: Geoff Perez on 12-03-2024 Estimated GFR (MDRD) Non-Af Amer 86 mL/min >60 [facility] Comment on above: Non- GFR Calc GFR/1.73 sq M.predicted among non-blacks MDRD (S/P/Bld) [Vol rate/Area] 86 mL/min/{1.73_m2} >60 [facility] Comment on above: Non- GFR Calc Glucose measurementOrdered B y: Geoff Perez on 12-03-2024 Glucose [Mass/Vol] 89 mg/dL 74-106 [facility] Hematocrit Auto (Bld) [Volum e fraction]Ordered By: Geoff Perez on 12-03-2024 Hematocrit (Bld) [Volume fraction] 43.7 % 37-47 [facility] Hemoglobin measurementOrdere d By: Geoff Perez on 12-03-2024 Hemoglobin (Bld) [Mass/Vol] 14.3 g/dL 12.0-15.0 [facility] High density lipoprotein (HD L) measurementOrdered By: Geoff Perez on 12-03-2024 Cholesterol in HDL [Mass/Vol] 68 mg/dL >40 [facility] Comment on above: The drugs N-Acetylcy steine and Metamizole may falsely depress this assay. Reference Range HDL <40 mg/dL Low HDL Cholesterol HDL >or= 60 mg/dL High HDL Cholesterol Immature granulocytes/100 WB C Auto (Bld)Ordered By: Geoff Perez on 12-03-2024 Immature granulocytes/100 WBC (Bld) 0.200 % 0.0-0.9 [facility] Comment on above: IG% - Immature Granu locytes (promyelocytes, myelocytes and metamyelocytes) > 1% indicates that a LEFT SHIFT is Present. Laboratory - Chemistry and C hemistry - challengeOrdered By: Geoff Perez on 12-03-2024 AST [Catalytic activity/Vol] 22 U/L 15-37 [facility] Lipid Profileon 12-03-2024 Cholesterol [Mass/Vol] 199 mg/dL Normal 200 [facility] Comment on above: Result Comment: <200 mg/dL Desirable 200-240 mg/dL Borderline >240 mg/dL High Risk Performed By: #### M 100.2000, M100.2400 #### [facility] [address] [place], [address] Cholesterol in HDL [Mass/Vol] 68 mg/dL Normal [facility] Comment on above: Result Comment: The drugs N-Acetylcysteine and Metamizole may falsely depress this assay. Reference Range HDL <40 mg/dL Low HDL Cholesterol HDL >or= 60 mg/dL High HDL Cholesterol Performed By: #### M , #### [facility] [address] [place], [address] Cholesterol in LDL [Mass/Vol] 107 mg/dL Normal 0-130 [facility] Comment on above: Performed By: #### M , #### [facility] [address] [place], [address] Cholesterol in VLDL [Mass/Vol] 24 mg/dL Normal 5-40 [facility] Comment on above: Performed By: #### M , #### [facility] [address] [place], [address] Triglyceride [Mass/Vol] 122 mg/dL Normal [facility] Comment on above: Result Comment: The drugs N-Acetylcysteine and Metamizole may falsely depress this assay. Serum Triglycerides Reference Interval Normal <150 mg/dL Borderline high 150 - 199 mg/dL High 200 - 499 mg/dL Very High > or = 500 mg/dL Performed By: #### M , #### [facility] [address] [place], [address] Low density lipoprotein (LDL ) cholesterol measurementOrdered By: Geoff Perez on 12-03-2024 Cholesterol in LDL [Mass/Vol] 107 mg/dL 0-130 [facility] Lymphocytes Auto (Unsp spec) [#/Vol]Ordered By: Geoff Perez on 12-03-2024 Lymphocytes (Bld) [#/Vol] 1.63 10*3/uL 0.83-4.51 [facility] Lymphocytes/100 WBC Auto (Un sp spec)Ordered By: Geoff Perez on 12-03-2024 Lymphocytes/100 WBC (Bld) 19.6 % 19-41 [facility] MCV (mean corpuscular volume ) determinationOrdered By: Geoff Perez on 12-03-2024 MCV (RBC) [Entitic vol] 87.1 fL 81-99 [facility] Mean corpuscular hemoglobin (MCH) determinationOrdered By: Geoff Perez on 12-03-2024 MCH (RBC) [Entitic mass] 28.5 pg 27.0-32.0 [facility] Mean corpuscular hemoglobin concentration (MCHC) determinationOrdered By: Geoff Perez on 12-03-2024 MCHC (RBC) [Mass/Vol] 32.7 g/dL 32-36 [facility] Mean platelet volume determi nationOrdered By: Geoff Perez on 12-03-2024 Platelet mean volume (Bld) [Entitic vol] 8.6 fL 6.2-12.0 [facility] Monocyte percentageOrdered B y: Geoff Perez on 12-03-2024 Monocytes/100 WBC (Bld) 9.0 % 0-10 [facility] Neutrophil percentageOrdered By: Geoff Perez on 12-03-2024 Neutrophils/100 WBC (Bld) 68.4 % 47-70 [facility] Nucleated red blood cell per centageOrdered By: Geoff Perez on 12-03-2024 Nucleated RBC/100 WBC (Bld) [Ratio] 0 % 0-5 [facility] [facility] Platelet countOrdered By: Gume Perez on 12-03-2024 Platelets (Bld) [#/Vol] 278 10*3/uL 150-450 [facility] Potassium measurementOrdered By: Geoff Perez on 12-03-2024 Potassium [Moles/Vol] 4.1 mmol/L 3.5-5.1 [facility] RBC Auto (Bld) [#/Vol]Ordere d By: Geoff Perez on 12-03-2024 RBC (Bld) [#/Vol] 5.02 10*6/uL 4.2-5.4 [facility] Serum anion gap measurementO rdered By: Geoff Perez on 12-03-2024 Anion gap [Moles/Vol] 8 mmol/L 5-15 [facility] Serum globulin measurementOr dered By: Geoff Perez on 12-03-2024 Globulin (S) [Mass/Vol] 3.4 g/dL 2.2-4.2 [facility] Serum or plasma alanine mcbride otransferase (ALT) measurementOrdered By: Geoff Perez 12-03-2024 ALT [Catalytic activity/Vol] 20 U/L 13-56 [facility] Serum or plasma albumin manoj urement (mass/volume)Ordered By: Geoff Perez 12-03-2024 Albumin [Mass/Vol] 3.6 g/dL 3.2-5.0 [facility] Serum or plasma alkaline bertha sphatase measurementOrdered By: Geoff Perez 12-03-2024 ALP [Catalytic activity/Vol] 92 U/L 45-117 [facility] Serum or plasma calcium manoj urement (mass/volume)Ordered By: Geoff Perez 12-03-2024 Calcium [Mass/Vol] 8.6 mg/dL 8.5-10.1 [facility] Serum or plasma cholesterol measurement (mass/volume)Ordered By: Geoff Perez 12-03-2024 Cholesterol [Mass/Vol] 199 mg/dL <200 [facility] Comment on above: <200 mg/dL Desirable 200-240 mg/dL Borderline >240 mg/dL High Risk Serum or plasma creatinine m easurement (mass/volume)Ordered By: Geoff Perez 12-03-2024 Creatinine [Mass/Vol] 0.72 mg/dL 0.55-1.02 [facility] Comment on above: The validity of the calculated GFR & GFRAA in patients over 70 years has not been determined. Clinical correlation is essential. Serum or plasma thyroid stim ulating hormone (TSH) measurement (units/volume)Ordered By: Geoff Perez 12-03-2024 TSH Qn 2.340 uIU/mL 0.358-3.740 [facility] Serum or plasma urea nitroge n measurement (mass/volume)Ordered By: Geoff Perez 12-03-2024 Urea nitrogen [Mass/Vol] 12 mg/dL 7-18 [facility] Sodium levelOrdered By: Geoff Perez 12-03-2024 Sodium [Moles/Vol] 138 mmol/L 136-145 [facility] TSH QnOrdered By: Geoff Perez o n 12-03-2024 Thyroid Stimulating Hormone (TSH) 2.340 uIU/mL 0.358-3.740 [facility] Thyroid Stim Hormone (TSH)on 12-03-2024 TSH 2.340 uIU/mL Normal 0.358-3.740 [facility] Comment on above: Performed By: #### M , #### [facility] [address] [place], [place], [address] Total proteinOrdered By: Geoff Perez on 12-03-2024 Protein [Mass/Vol] 7.0 g/dL 6.4-8.2 [facility] Triglycerides measurementOrd ered By: Geoff Perez on 12-03-2024 Triglyceride [Mass/Vol] 122 mg/dL <199 [facility] Comment on above: The drugs N-Acetylcy steine and Metamizole may falsely depress this assay.Serum Triglycerides Reference Interval Normal <150 mg/dL Borderline high 150 - 199 mg/dL High 200 - 499 mg/dL Very High > or = 500 mg/dL Very low density lipoprotein (VLDL) cholesterol measurementOrdered By: Geoff Perez on 12-03-2024 Very low density lipoprotein (VLDL) cholesterol measurement 24 mg/dL 5-40 [facility] VLDL Cholesterol 24 mg/dL 5-40 [facility] Vitamin D,25 Hydroxyon 12-03 Vitamin D 25-OH 30.5 ng/mL Normal [facility] Comment on above: Result Comment: Dianna min D 25(OH) Status Range Deficiency <20 ng/mL (50nmol/L) Insufficiency 20 - 30 ng/mL (50 - 75 nmol/L) Sufficiency 30 - 100 ng/mL (75 - 250 nmol/L) Toxicity >100 ng/mL (>250 nmol/L) Performed By: #### M , #### [facility] [address] [place], [place], [address] White blood cell (WBC) count Ordered By: Geoff Perez on 12-03-2024 WBC (Bld) [#/Vol] 8.3 10*3/uL 4.4-11.0 [facility] TSH QnOrdered By: Geoff carson n 10-03-2024 Thyroid Stimulating Hormone (TSH) 3.300 uIU/mL 0.358-3.740 [facility] Thyroid Stim Hormone (TSH)on 10-03-2024 TSH 3.300 uIU/mL Normal 0.358-3.740 [facility] Comment on above: Performed By: #### M [id number] #### [facility] [address] [place], [address] Immunoglobulins G/A/M/Raffaele IMMUNOGLOB A QN Normal [facility] Comment on above: Order Comment: N Result Comment: WRON G TEST Performed By: #### L 3200.1100 #### [facility] [address] [place], [address] IMMUNOGLOB E QN Normal [facility] Comment on above: Order Comment: N Result Comment: WRON G TEST Performed By: #### L 3200.1100 #### [facility] [address] [place], [address] IMMUNOGLOB G QN Normal [facility] Comment on above: Order Comment: N Result Comment: WRON G TEST Performed By: #### L 3200.1100 #### [facility] [address] [place], [address] IMMUNOGLOB M QN Normal [facility] Comment on above: Order Comment: N Result Comment: WRON G TEST Performed By: #### L 3200.1100 #### [facility] [address] [place], [address] Immunoglobulins G/A/M/Raffaele IMMUNOGLOB A QN 232 mg/dL Normal 87-352 [facility] Comment on above: Order Comment: N Performed By: #### M [id number] #### [facility] [address] [place], [address] IMMUNOGLOB E QN 32 IU/mL Normal 6-495 [facility] Comment on above: Order Comment: N Result Comment: Perf ormed at: - [facility] [id number] Correspondence Renew Clerk: Houston Bowden PhD, Phone: [phone] Performed at: [facility] [id number] Correspondence Renew Clerk: Micheline Saravia MD, Phone: [phone] Performed By: #### M [id number] #### [facility] [address] [place], [address] IMMUNOGLOB G QN 682 mg/dL Normal 586-1602 [facility] Comment on above: Order Comment: N Performed By: #### M [id number] #### [facility] [address] [place], [address] IMMUNOGLOB M QN 83 mg/dL Normal 26-217 [facility] Comment on above: Order Comment: N Performed By: #### M [id number] #### [facility] [address] [place], [address] M100.678on 08-07-2024 M100.678 Pending SARS-CoV-2 (COVID 19) Negative INFLUENZA A Negative INFLUENZA B Negative RSV PCR Negative Normal [facility] Comment on above: Performed By: #### M [id number] #### [facility] [address] [place], [address] Thyroid Stim Hormone (TSH)on 08-07-2024 TSH 2.800 uIU/mL Normal 0.358-3.740 [facility] Comment on above: Performed By: #### M [id number], L3200.1100, L501.9520 #### [facility] [address] [place], [address] Thyroid Stim Hormone (TSH)on 07-24-2024 TSH 4.340 uIU/mL High 0.358-3.740 [facility] Comment on above: Performed By: #### L [id number] #### [facility] [address] [place], [address] CBC W/Diff, Automatedon 08-0 5-2024 Absolute Lymph 1.61 X10 3/uL Normal 0.83-4.51 [facility] Comment on above: Performed By: #### M [id number] #### [facility] [address] [place], [address] Absolute Neut 6.2 X10 3/uL Normal 2.0-7.7 [facility] Comment on above: Performed By: #### M [id number] #### [facility] [address] [place], [address] Basophils/100 WBC (Bld) 0.7 % Normal 0-1 [facility] Comment on above: Performed By: #### M [id number] #### [facility] [address] [place], [address] Eosinophils/100 WBC (Bld) 4.0 % Normal 0-5 [facility] Comment on above: Performed By: #### M [id number] #### [facility] [address] [place], [address] Erythrocyte distribution width (RBC) [Ratio] 12.8 % Normal 11.6-14.6 [facility] Comment on above: Performed By: #### M [id number] #### [facility] [address] [place], [address] Hematocrit (Bld) [Volume fraction] 45.5 % Normal 37-47 [facility] Comment on above: Performed By: #### M [id number] #### [facility] [address] [place], [address] Hemoglobin (Bld) [Mass/Vol] 15.2 g/dL High 12.0-15.0 [facility] Comment on above: Performed By: #### M [id number] #### [facility] [address] [place], [address] IG% 0.300 Normal 0.0-0.9 [facility] Comment on above: Result Comment: IG% - Immature Granulocytes (promyelocytes, myelocytes and metamyelocytes) > 1% indicates that a LEFT SHIFT is Present. Performed By: #### M [id number] #### [facility] [address] [place], [address] Lymphocytes/100 WBC (Bld) 17.8 % Low 19-41 [facility] Comment on above: Performed By: #### M [id number] #### [facility] [address] [place], [address] MCH (RBC) [Entitic mass] 29.3 pg Normal 27.0-32.0 [facility] Comment on above: Performed By: #### M [id number] #### [facility] [address] [place], [address] MCHC (RBC) [Mass/Vol] 33.4 g/dL Normal 32-36 [facility] Comment on above: Performed By: #### M [id number] #### [facility] [address] [place], [address] MCV (RBC) [Entitic vol] 87.7 fL Normal 81-99 [facility] Comment on above: Performed By: #### M [id number] #### [facility] [address] [place], [address] Monocytes/100 WBC (Bld) 8.9 % Normal 0-10 [facility] Comment on above: Performed By: #### M [id number] #### [facility] [address] [place], [address] Neutrophils/100 WBC (Bld) 68.3 % Normal 47-70 [facility] Comment on above: Performed By: #### M [id number] #### [facility] [address] [place], [address] Nucleated RBC (Bld) [#/Vol] 0 10*3/uL Normal 0-5 [facility] Comment on above: Performed By: #### M [id number] #### [facility] [address] [place], [address] Platelet mean volume (Bld) [Entitic vol] 8.8 fL Normal 6.2-12.0 [facility] Comment on above: Performed By: #### M [id number] #### [facility] [address] [place], [address] Platelets (Bld) [#/Vol] 320 10*3/uL Normal 150-450 [facility] Comment on above: Performed By: #### M [id number] #### [facility] [address] [place], [address] RBC (Bld) [#/Vol] 5.19 10*6/uL Normal 4.2-5.4 [facility] Comment on above: Performed By: #### M [id number] #### [facility] [address] [place], [address] RDW SD 41.2 fl Normal 35.1-43.9 [facility] Comment on above: Performed By: #### M [id number] #### [facility] [address] [place], [address] WBC (Bld) [#/Vol] 9.1 10*3/uL Normal 4.4-11.0 [facility] Comment on above: Performed By: #### M [id number] #### [facility] [address] [place], [address] Comprehensive Metabolic Prof ilon 08-05-2024 Albumin [Mass/Vol] 3.7 g/dL Normal 3.2-5.0 [facility] Comment on above: Performed By: #### M [id number] #### [facility] [address] [place], [address] Albumin/Globulin [Mass ratio] 1.1 {ratio} Normal 0.9-2.4 [facility] Comment on above: Performed By: #### M [id number] #### [facility] [address] [place], [address] ALK P 99 U/L Normal 45-117 [facility] Comment on above: Performed By: #### M [id number] #### [facility] [address] [place], [address] ALT [Catalytic activity/Vol] 19 U/L Normal 13-56 [facility] Comment on above: Performed By: #### M [id number] #### [facility] [address] [place], [address] AST [Catalytic activity/Vol] 28 U/L Normal 15-37 [facility] Comment on above: Performed By: #### M [id number] #### [facility] [address] [place], [address] Bilirubin [Mass/Vol] 0.60 mg/dL Normal 0.20-1.00 [facility] Comment on above: Result Comment: For patients on eltrombopag therapy, use of Dimension [place] TBIL is not recommended. Performed By: #### M [id number] #### [facility] [address] [place], [address] BUN/CRE 14.7 RATIO Normal 10-20 [facility] Comment on above: Performed By: #### M [id number] #### [facility] [address] [place], [address] CA,Total 8.9 mg/dL Normal 8.5-10.1 [facility] Comment on above: Performed By: #### M [id number] #### [facility] [address] [place], [address] Chloride [Moles/Vol] 109 mmol/L High 98-107 [facility] Comment on above: Performed By: #### M [id number] #### [facility] [address] [place], [address] CO2 [Moles/Vol] 26.0 mmol/L Normal 21.0-32.0 [facility] Comment on above: Performed By: #### M [id number] #### [facility] [address] [place], [address] Creatinine [Mass/Vol] 0.82 mg/dL Normal 0.55-1.02 [facility] Comment on above: Result Comment: The validity of the calculated GFR GFRAA in patients over 70 years has not been determined. Clinical correlation is essential. Performed By: #### M [id number] #### [facility] [address] [place], [address] EST GFR - AA 90 mL/min Normal >60 [facility] Comment on above: Result Comment: Afri can Iraqi GFR Calc Performed By: #### M [id number] #### [facility] [address] [place], [address] GAP 5 Normal 5-15 [facility] Comment on above: Performed By: #### M [id number] #### [facility] [address] [place], [address] GFR/1.73 sq M.predicted among non-blacks MDRD (S/P/Bld) [Vol rate/Area] 74 mL/min/{1.73_m2} Normal >60 [facility] Comment on above: Result Comment: Non- GFR Calc Performed By: #### M [id number] #### [facility] [address] [place], [address] Globulin (S) [Mass/Vol] 3.5 g/dL Normal 2.2-4.2 [facility] Comment on above: Performed By: #### M [id number] #### [facility] [address] [place], [address] Glucose [Mass/Vol] 125 mg/dL High 74-106 [facility] Comment on above: Result Comment: Fast ing Glucose result from 100 to 125 mg/dL suggests IMPAIRED HOMEOSTASIS per A.D.A. criteria. Performed By: #### M [id number] #### [facility] [address] [place], [address] Potassium [Moles/Vol] 3.6 mmol/L Normal 3.5-5.1 [facility] Comment on above: Performed By: #### M [id number] #### [facility] [address] [place], [address] Sodium [Moles/Vol] 140 mmol/L Normal 136-145 [facility] Comment on above: Performed By: #### M [id number] #### [facility] [address] [place], [address] T PROT 7.2 g/dL Normal 6.4-8.2 [facility] Comment on above: Performed By: #### M [id number] #### [facility] [address] [place], [address] Urea nitrogen [Mass/Vol] 12 mg/dL Normal 7-18 [facility] Comment on above: Performed By: #### M [id number] #### [facility] [address] [place], [address] Lipid Profileon 05-27-2024 Cholesterol [Mass/Vol] 209 mg/dL High 200 [facility] Comment on above: Result Comment: <200 mg/dL Desirable 200-240 mg/dL Borderline >240 mg/dL High Risk Performed By: #### M [id number] #### [facility] [address] [place], [address] Cholesterol in HDL [Mass/Vol] 71 mg/dL Normal [facility] Comment on above: Result Comment: The drugs N-Acetylcysteine and Metamizole may falsely depress this assay. Reference Range HDL <40 mg/dL Low HDL Cholesterol HDL >or= 60 mg/dL High HDL Cholesterol Performed By: #### M [id number] #### [facility] [address] [place], [address] Cholesterol in LDL [Mass/Vol] 110 mg/dL Normal 0-130 [facility] Comment on above: Performed By: #### M [id number] #### [facility] [address] [place], [address] Cholesterol in VLDL [Mass/Vol] 28 mg/dL Normal 5-40 [facility] Comment on above: Performed By: #### M [id number] #### [facility] [address] [place], [address] Triglyceride [Mass/Vol] 142 mg/dL Normal [facility] Comment on above: Result Comment: The drugs N-Acetylcysteine and Metamizole may falsely depress this assay. Serum Triglycerides Reference Interval Normal <150 mg/dL Borderline high 150 - 199 mg/dL High 200 - 499 mg/dL Very High > or = 500 mg/dL Performed By: #### M [id number] #### [facility] [address] [place], [address] [id number] 05-27-2024 M100.678 SARS-CoV-2 (COVID 19 ) Negative INFLUENZA A Negative INFLUENZA B Negative RSV PCR Negative Normal [facility] Comment on above: Performed By: #### M [id number] #### [facility] [address] [place], [place], [address] Thyroid Stim Hormone (TSH)on 05-27-2024 TSH 5.08 uIU/mL High 0.358-3.74 [facility] Comment on above: Performed By: #### M [id number] #### [facility] [address] [place], [address] Vitamin D,25 Hydroxyon 05-27 Vitamin D 25-OH 44.0 ng/mL Normal [facility] Comment on above: Result Comment: Dianna min D 25(OH) Status Range Deficiency <20 ng/mL (50nmol/L) Insufficiency 20 - 30 ng/mL (50 - 75 nmol/L) Sufficiency 30 - 100 ng/mL (75 - 250 nmol/L) Toxicity >100 ng/mL (>250 nmol/L) Performed By: #### M [id number] #### [facility] [address] [place], [address] [id number] 05-02-2024 M100.678 SARS-CoV-2 (COVID 19 ) Negative INFLUENZA A Negative INFLUENZA B Negative RSV PCR Negative Normal [facility] Comment on above: Performed By: #### M [id number] #### [facility] [address] [place], [place], [address] Absolute lymphocyte countOrd ered By: Geoff Perez on 11-21-2023 Lymphocytes Auto (Unsp spec) [#/Vol] 1.31 10*3/uL 0.83-4.51 [facility] Automated lymphocyte count a s percentage of total leukocytesOrdered By: Geoff Perez on 11-21-2023 Lymphocytes/100 WBC Auto (Unsp spec) 17.6 % 19-41 [facility] Basophil percentageOrdered B y: Geoff Perez on 11-21-2023 Basophils/100 WBC (Bld) 0.7 % 0-1 [facility] Bilirubin [Mass/Vol] 0.50 mg/dL 0.20-1.00 [facility] Comment on above: For patients on eltr ombopag therapy, use of Dim[employer] [place] TBIL is not recommended. Chloride [Moles/Vol] 110 mmol/L 98-107 [facility] Eosinophils/100 WBC (Bld) 4.2 % 0-5 [facility] Glucose [Mass/Vol] 110 mg/dL 74-106 [facility] Comment on above: Fasting Glucose resu lt from 100 to 125 mg/dL suggests IMPAIRED HOMEOSTASIS per A.D.A. criteria. Hemoglobin (Bld) [Mass/Vol] 14.1 g/dL 12.0-15.0 [facility] Monocytes/100 WBC (Bld) 8.6 % 0-10 [facility] Neutrophils (Bld) [#/Vol] 5.1 10*3/uL 2.0-7.7 [facility] Neutrophils/100 WBC (Bld) 68.6 % 47-70 [facility] Potassium [Moles/Vol] 4.2 mmol/L 3.5-5.1 [facility] Protein [Mass/Vol] 7.0 g/dL 6.4-8.2 [facility] Sodium [Moles/Vol] 142 mmol/L 136-145 [facility] WBC (Bld) [#/Vol] 7.4 10*3/uL 4.4-11.0 [facility] Determination of erythrocyte mean corpuscular volume (MCV)Ordered By: Geoff Perez on 11-21-2023 MCV (RBC) [Entitic vol] 87.6 fL 81-99 [facility] Erythrocyte distribution wid th ratioOrdered By: Geoff Tan11-21-2023 Erythrocyte distribution width (RBC) [Ratio] 13.7 % 11.6-14.6 [facility] Erythrocyte distribution wid th standard deviationOrdered By: Geoff Tanok on 11-21-2023 Erythrocyte distribution width (RBC) [Entitic vol] 44.1 fL 35.1-43.9 [facility] Hematocrit Auto (Bld) [Volum e fraction]Ordered By: Geoff Perez 11-21-2023 Hematocrit (Bld) [Volume fraction] 42.5 % 37-47 [facility] Immature granulocytes/100 WB C Auto (Bld)Ordered By: Geoff Perez on 11-21-2023 Immature granulocytes/100 WBC (Bld) 0.300 % 0.0-0.9 [facility] Comment on above: IG% - Immature Granu locytes (promyelocytes, myelocytes and metamyelocytes) > 1% indicates that a LEFT SHIFT is Present. Laboratory - Chemistry and C hemistry - challengeOrdered By: Geoff Perez on 11-21-2023 Albumin/Globulin [Mass ratio] 1.1 {ratio} 0.9-2.4 [facility] ALP [Catalytic activity/Vol] 107 U/L 45-117 [facility] ALT [Catalytic activity/Vol] 22 U/L 13-56 [facility] CO2 [Moles/Vol] 27.0 mmol/L 21.0-32.0 [facility] Globulin (S) [Mass/Vol] 3.3 g/dL 2.2-4.2 [facility] Urea nitrogen/Creatinine [Mass ratio] 15.6 mg/mg 10-20 [facility] Laboratory - Hematology and Cell countsOrdered By: Geoff Perez on 11-21-2023 MCH (RBC) [Entitic mass] 29.1 pg 27.0-32.0 [facility] MCHC (RBC) [Mass/Vol] 33.2 g/dL 32-36 [facility] Nucleated RBC/100 WBC (Bld) [Ratio] 0 % 0-5 [facility] Platelets (Bld) [#/Vol] 270 10*3/uL 150-450 [facility] No Panel InformationOrdered By: Geoff Perez on 11-21-2023 Estimated GFR (MDRD) Amer 96 mL/min >60 [facility] Comment on above: GFR Calc Estimated GFR (MDRD) Non-Af Amer 80 mL/min >60 [facility] Comment on above: Non- GFR Calc Vitamin D 25-Hydroxy 30.8 ng/mL [facility] Comment on above: Vitamin D 25(OH) Sta tus Range Deficiency <20 ng/mL (50nmol/L) Insufficiency 20 - 30 ng/mL (50 - 75 nmol/L) Sufficiency 30 - 100 ng/mL (75 - 250 nmol/L) Toxicity >100 ng/mL (>250 nmol/L) Platelet mean volume Rodolfo-Ec ker (Bld) [Entitic vol]Ordered By: Geoff Perez on 11-21-2023 Platelet mean volume (Bld) [Entitic vol] 8.9 fL 6.2-12.0 [facility] RBC Auto (Bld) [#/Vol]Ordere d By: Geoff Perez on 11-21-2023 RBC (Bld) [#/Vol] 4.85 10*6/uL 4.2-5.4 [facility] Serum or plasma calcium manoj urement (mass/volume)Ordered By: Geoff Perez on 11-21-2023 Calcium [Mass/Vol] 9.0 mg/dL 8.5-10.1 [facility] Serum or plasma creatinine m easurement (mass/volume)Ordered By: Geoff Perez on 11-21-2023 Creatinine [Mass/Vol] 0.77 mg/dL 0.55-1.02 [facility] Comment on above: The validity of the calculated GFR & GFRAA in patients over 70 years has not been determined. Clinical correlation is essential. Serum or plasma thyroid stim ulating hormone (TSH) measurement (units/volume)Ordered By: Geoff Perez on 11-21-2023 TSH Qn 5.26 uIU/mL 0.358-3.74 [facility] Serum or plasma urea nitroge n measurement (mass/volume)Ordered By: Geoff Perez on 11-21-2023 Urea nitrogen [Mass/Vol] 12 mg/dL 7-18 [facility] Thin prep Papanicolaou smear with manual screeningOrdered By: Geoff Perez on 11-21-2023 Thin prep Papanicolaou smear with manual screening 3.7 g/dL 3.2-5.0 [facility] Thin prep Papanicolaou smear with manual screening 15 U/L 15-37 [facility] Thin prep Papanicolaou smear with manual screening 5 5-15 [facility] Absolute lymphocyte countOrd ered By: Geoff Perez on 08-09-2023 Lymphocytes Auto (Unsp spec) [#/Vol] 1.29 10*3/uL 0.83-4.51 [facility] Basophil percentageOrdered B y: Geoff Perez on 08-09-2023 Basophils/100 WBC (Bld) 0.5 % 0-1 [facility] Bilirubin [Mass/Vol] 0.40 mg/dL 0.20-1.00 [facility] Comment on above: For patients on eltr ombopag therapy, use of [employer] [place] TBIL is not recommended. Chloride [Moles/Vol] 109 mmol/L 98-107 [facility] Eosinophils/100 WBC (Bld) 1.1 % 0-5 [facility] Glucose [Mass/Vol] 111 mg/dL 74-106 [facility] Comment on above: Fasting Glucose resu lt from 100 to 125 mg/dL suggests IMPAIRED HOMEOSTASIS per A.D.A. criteria. Neutrophils (Bld) [#/Vol] 6.2 10*3/uL 2.0-7.7 [facility] Neutrophils/100 WBC (Bld) 73.3 % 47-70 [facility] Potassium [Moles/Vol] 3.7 mmol/L 3.5-5.1 [facility] Protein [Mass/Vol] 7.2 g/dL 6.4-8.2 [facility] Sodium [Moles/Vol] 141 mmol/L 136-145 [facility] WBC (Bld) [#/Vol] 8.4 10*3/uL 4.4-11.0 [facility] Blood erythrocytes count (nu mber/volume)Ordered By: Geoff Perez on 08-09-2023 RBC (Bld) [#/Vol] 5.19 10*6/uL 4.2-5.4 [facility] Blood hemoglobin measurement (mass/volume)Ordered By: Geoff Perez on 08-09-2023 Hemoglobin (Bld) [Mass/Vol] 15.3 g/dL 12.0-15.0 [facility] Blood lymphocytes/100 leukoc ytesOrdered By: Geoff Perez on 08-09-2023 Lymphocytes/100 WBC (Bld) 15.4 % 19-41 [facility] Blood monocytes/100 leukocyt esOrdered By: Geoff Perez on 08-09-2023 Monocytes/100 WBC (Bld) 9.2 % 0-10 [facility] Blood platelet mean volumeOr dered By: Geoff Perez on 08-09-2023 Platelet mean volume (Bld) [Entitic vol] 8.6 fL 6.2-12.0 [facility] Determination of erythrocyte mean corpuscular volume (MCV)Ordered By: Geoff Perez on 08-09-2023 MCV (RBC) [Entitic vol] 89.8 fL 81-99 [facility] Hematocrit Auto (Bld) [Volum e fraction]Or[facility] 08-09-[facility]23 Hematocrit (Bld) [Volume fraction] 46.6 % 37-47 [facility] Laboratory - Chemistry and C hemistry - challengeOrdered By: [facility] on 08-09-2023 ALP [Catalytic activity/Vol] 119 U/L 45-117 [facility] ALT [Catalytic activity/Vol] 26 U/L 13-56 [facility] CO2 [Moles/Vol] 27.0 mmol/L 21.0-32.0 [facility] Cobalamin (Vitamin B12) [Mass/Vol] 205 pg/mL 211-911 [facility] Globulin (S) [Mass/Vol] 3.7 g/dL 2.2-4.2 [facility] Urea nitrogen/Creatinine [Mass ratio] 17.9 mg/mg 10-20 [facility] Laboratory - Hematology and Cell countsOrdered By: [facility] 08-09-2023 Erythrocyte distribution width (RBC) [Entitic vol] 42.5 fL 35.1-43.9 [facility] Erythrocyte distribution width (RBC) [Ratio] 13.0 % 11.6-14.6 [facility] Immature granulocytes/100 WBC (Bld) 0.500 % 0.0-0.9 [facility] Comment on above: IG% - Immature Granu locytes (promyelocytes, myelocytes and metamyelocytes) > 1% indicates that a LEFT SHIFT is Present. MCH (RBC) [Entitic mass] 29.5 pg 27.0-32.0 [facility] Nucleated RBC/100 WBC (Bld) [Ratio] 0 % 0-5 [facility] MCHC Auto (RBC) [Mass/Vol]Or dered By: Geoff Perez on 08-09-2023 MCHC (RBC) [Mass/Vol] 32.8 g/dL 32-36 [facility] No Panel InformationOrdered By: Geoff Perez on 08-09-2023 Estimated GFR (MDRD) Amer 102 mL/min >60 [facility] Comment on above: GFR Calc Estimated GFR (MDRD) Non-Af Amer 85 mL/min >60 [facility] Comment on above: Non- GFR Calc Thyroid Stimulating Hormone (TSH) 3.43 uIU/mL 0.358-3.74 [facility] Platelets bldOrdered By: Geoff Perez on 08-09-2023 Platelets (Bld) [#/Vol] 292 10*3/uL 150-450 [facility] Serum Treponema species anti body detectionOrdered By: Geoff Perez on 08-09-2023 Treponema sp Ab Ql (S) Non-Reactive [facility] Serum or plasma albumin manoj urement (mass/volume)Ordered By: Geoff Perez on 08-09-2023 Albumin [Mass/Vol] 3.5 g/dL 3.2-5.0 [facility] Serum or plasma albumin/glob ulin mass ratioOrdered By: Geoff Perez 08-09-2023 Albumin/Globulin [Mass ratio] 0.9 {ratio} 0.9-2.4 [facility] Serum or plasma calcium manoj urement (mass/volume)Ordered By: Geoff Perez 08-09-2023 Calcium [Mass/Vol] 8.8 mg/dL 8.5-10.1 [facility] Serum or plasma creatinine m easurement (mass/volume)Ordered By: Geoff Perez 08-09-2023 Creatinine [Mass/Vol] 0.73 mg/dL 0.55-1.02 [facility] Comment on above: The validity of the calculated GFR & GFRAA in patients over 70 years has not been determined. Clinical correlation is essential. Serum or plasma folate measu rement (mass/volume)Ordered By: Geoff Perez on 08-09-2023 Folate [Mass/Vol] 48.00 ng/mL 3.1-55.4 [facility] Comment on above: Slight Hemolysis, Re sult may be falsely increased. Serum or plasma urea nitroge n measurement (mass/volume)Ordered By: Geoff Perez on 08-09-2023 Urea nitrogen [Mass/Vol] 13 mg/dL -18 [facility] Thin prep Papanicolaou smear with manual screeningOrdered By: Geoff Perez on 08-09-2023 Thin prep Papanicolaou smear with manual screening 16 U/L 15-37 [facility] Thin prep Papanicolaou smear with manual screening 5 5-15 [facility] Whole blood hemoglobin A1c/t otal hemoglobin ratio (mass fraction)Ordered By: Geoff Perez on 08-09-2023 HbA1c (Bld) [Mass fraction] 5.0 % 3.8-5.6 [facility] Comment on above: Normal < 5.7 % Predi abetic 5.7 - 6.4 % Diabetic >or= 6.5 % Please note range changes. Absolute lymphocyte countOrd ered By: Dr. Perez on 02-16-2023 Lymphocytes Auto (Unsp spec) [#/Vol] 1.97 10*3/uL 0.83-4.51 [facility] Basophil percentageOrdered B y: Dr. Perez on 02-16-2023 Basophils/100 WBC (Bld) 0.7 % 0-1 [facility] Bilirubin [Mass/Vol] 0.50 mg/dL 0.20-1.00 [facility] Comment on above: For patients on eltr ombopag therapy, use of [employer] [place] TBIL is not recommended. Chloride [Moles/Vol] 109 mmol/L 98-107 [facility] Eosinophils/100 WBC (Bld) 1.2 % 0-5 [facility] Glucose [Mass/Vol] 112 mg/dL 74-106 [facility] Comment on above: Fasting Glucose resu lt from 100 to 125 mg/dL suggests IMPAIRED HOMEOSTASIS per A.D.A. criteria. Neutrophils (Bld) [#/Vol] 4.6 10*3/uL 2.0-7.7 [facility] Neutrophils/100 WBC (Bld) 62.8 % 47-70 [facility] Potassium [Moles/Vol] 3.4 mmol/L 3.5-5.1 [facility] Protein [Mass/Vol] 6.5 g/dL 6.4-8.2 [facility] Sodium [Moles/Vol] 138 mmol/L 136-145 [facility] WBC (Bld) [#/Vol] 7.4 10*3/uL 4.4-11.0 [facility] Blood erythrocytes count (nu mber/volume)Ordered By: Dr. Perez on 02-16-2023 RBC (Bld) [#/Vol] 4.99 10*6/uL 4.2-5.4 [facility] Blood hemoglobin measurement (mass/volume)Ordered By: Dr. Perez on 02-16-2023 Hemoglobin (Bld) [Mass/Vol] 14.5 g/dL 12.0-15.0 [facility] Blood lymphocytes/100 leukoc ytesOrdered By: Dr. Perez on 02-16-2023 Lymphocytes/100 WBC (Bld) 26.8 % 19-41 [facility] Blood monocytes/100 leukocyt esOrdered By: Dr. Perez on 02-16-2023 Monocytes/100 WBC (Bld) 8.0 % 0-10 [facility] Blood platelet mean volumeOr dered By: Dr. Perez on 02-16-2023 Platelet mean volume (Bld) [Entitic vol] 8.7 fL 6.2-12.0 [facility] Determination of erythrocyte mean corpuscular volume (MCV)Ordered By: Dr. Perez on 02-16-2023 MCV (RBC) [Entitic vol] 88.0 fL 81-99 [facility] Hematocrit Auto (Bld) [Volum e fraction]Ordered By: Dr. Perez on 02-16-2023 Hematocrit (Bld) [Volume fraction] 43.9 % 37-47 [facility] Laboratory - Chemistry and C hemistry - challengeOrdered By: Dr. Perez on 02-16-2023 ALP [Catalytic activity/Vol] 88 U/L 45-117 [facility] ALT [Catalytic activity/Vol] 19 U/L 13-56 [facility] CO2 [Moles/Vol] 24.0 mmol/L 21.0-32.0 [facility] Globulin (S) [Mass/Vol] 3.1 g/dL 2.2-4.2 [facility] Urea nitrogen/Creatinine [Mass ratio] 14.6 mg/mg 10-20 [facility] Laboratory - Hematology and Cell countsOrdered By: Dr. Perez on 02-16-2023 Erythrocyte distribution width (RBC) [Entitic vol] 42.6 fL 35.1-43.9 [facility] Erythrocyte distribution width (RBC) [Ratio] 13.2 % 11.6-14.6 [facility] Immature granulocytes/100 WBC (Bld) 0.500 % 0.0-0.9 [facility] Comment on above: IG% - Immature Granu locytes (promyelocytes, myelocytes and metamyelocytes) > 1% indicates that a LEFT SHIFT is Present. MCH (RBC) [Entitic mass] 29.1 pg 27.0-32.0 [facility] Nucleated RBC/100 WBC (Bld) [Ratio] 0 % 0-5 [facility] MCHC Auto (RBC) [Mass/Vol]Or dered By: Dr. Perez on 02-16-2023 MCHC (RBC) [Mass/Vol] 33.0 g/dL 32-36 [facility] No Panel InformationOrdered By: Dr. Perez on 02-16-2023 Estimated GFR (MDRD) Amer 81 mL/min >60 [facility] Comment on above: GFR Calc Estimated GFR (MDRD) Non-Af Amer 67 mL/min >60 [facility] Comment on above: Non- GFR Calc Thyroid Stimulating Hormone (TSH) 3.59 uIU/mL 0.358-3.74 [facility] Vitamin D 25-Hydroxy 33.2 ng/mL [facility] Comment on above: Vitamin D 25(OH) Sta tus Range Deficiency <20 ng/mL (50nmol/L) Insufficiency 20 - 30 ng/mL (50 - 75 nmol/L) Sufficiency 30 - 100 ng/mL (75 - 250 nmol/L) Toxicity >100 ng/mL (>250 nmol/L) Platelets bldOrdered By: Dr. Perez on 02-16-2023 Platelets (Bld) [#/Vol] 278 10*3/uL 150-450 [facility] Serum or plasma albumin manoj urement (mass/volume)Ordered By: Dr. Perez on 02-16-2023 Albumin [Mass/Vol] 3.4 g/dL 3.2-5.0 [facility] Serum or plasma albumin/glob ulin mass ratioOrdered By: Dr. Perez on 02-16-2023 Albumin/Globulin [Mass ratio] 1.1 {ratio} 0.9-2.4 [facility] Serum or plasma calcium manoj urement (mass/volume)Ordered By: Dr. Perez on 02-16-2023 Calcium [Mass/Vol] 8.7 mg/dL 8.5-10.1 [facility] Serum or plasma creatinine m easurement (mass/volume)Ordered By: Dr. Perez on 02-16-2023 Creatinine [Mass/Vol] 0.89 mg/dL 0.55-1.02 [facility] Comment on above: The validity of the calculated GFR & GFRAA in patients over 70 years has not been determined. Clinical correlation is essential. Serum or plasma urea nitroge n measurement (mass/volume)Ordered By: Dr. Perez on 02-16-2023 Urea nitrogen [Mass/Vol] 13 mg/dL 7-18 [facility] Thin prep Papanicolaou smear with manual screeningOrdered By: Dr. Perez on 02-16-2023 Thin prep Papanicolaou smear with manual screening 16 U/L 15-37 [facility] Thin prep Papanicolaou smear with manual screening 5 5-15 [facility] COVID-19 virus antigen assay Ordered By: Dr. Perez on 02-15-2023 SARS-CoV-2 (COVID-19) Ag IA.rapid Ql (Resp) Not detected Not Detect [facility] Comment on above: Normal Reference Ran [...] 02-15-2023 Influenza Types A,B Direct FA (GEMMA) [facility] No Panel InformationOrdered By: Dr. Perez on 02-15-2023 Influenza Types A,B Direct FA ([facility]) [facility] RSV Ag EIAOrdered By: Geoff asif on 02-15-2023 RSV Ag Immune stain Ql (Tiss) [facility] RSV Ag EIAOrdered By: Dr. Britney asif on 02-15-2023 RSV Ag Immune stain Ql (Tiss) [facility] Absolute lymphocyte counton 08-18-2022 Lymphocytes Auto (Unsp spec) [#/Vol] 0.96 10*3/uL 0.83-4.51 [facility] Work Phone: Basophil percentageon 2021 Basophils/100 WBC (Bld) 0.5 % 0-1 [facility] Work Phone: Bilirubin [Mass/Vol] 0.50 mg/dL 0.20-1.00 [facility] Work Phone: Comment on above: For patients on eltr ombopag therapy, use of [employer] [place] TBIL is not recommended. Chloride [Moles/Vol] 110 mmol/L 98-107 [facility] Work Phone: Eosinophils/100 WBC (Bld) 2.3 % 0-5 [facility] Work Phone: Glucose [Mass/Vol] 92 mg/dL 74-106 [facility] Work Phone: Neutrophils (Bld) [#/Vol] 4.2 10*3/uL 2.0-7.7 [facility] Work Phone: Neutrophils/100 WBC (Bld) 72.5 % 47-70 [facility] Work Phone: Potassium [Moles/Vol] 4.0 mmol/L 3.5-5.1 [facility] Work Phone: Protein [Mass/Vol] 6.5 g/dL 6.4-8.2 [facility] Work Phone: Sodium [Moles/Vol] 141 mmol/L 136-145 [facility] Work Phone: WBC (Bld) [#/Vol] 5.7 10*3/uL 4.4-11.0 [facility] Work Phone: Blood erythrocytes count (nu mber/volume)on 08-18-2022 RBC (Bld) [#/Vol] 4.64 10*6/uL 4.2-5.4 [facility] Work Phone: Blood hemoglobin measurement (mass/volume)on 08-18-2022 Hemoglobin (Bld) [Mass/Vol] 13.5 g/dL 12.0-15.0 [facility] Work Phone: Blood lymphocytes/100 leukoc yteson 08-18-2022 Lymphocytes/100 WBC (Bld) 16.7 % 19-41 [facility] Work Phone: Blood monocytes/100 leukocyt eson 08-18-2022 Monocytes/100 WBC (Bld) 7.8 % 0-10 [facility] Work Phone: Blood platelet mean volumeon 08-18-2022 Platelet mean volume (Bld) [Entitic vol] 8.6 fL 6.2-12.0 [facility] Work Phone: Determination of erythrocyte mean corpuscular volume (MCV)on 08-18-2022 MCV (RBC) [Entitic vol] 85.8 fL 81-99 [facility] Work Phone: Hematocrit Auto (Bld) [Volum e fraction]on 08-18-2022 Hematocrit (Bld) [Volume fraction] 39.8 % 37-47 [facility] Work Phone: Laboratory - Chemistry and C hemistry - challengeon 08-18-2022 ALP [Catalytic activity/Vol] 87 U/L 45-117 [facility] Work Phone: ALT [Catalytic activity/Vol] 19 U/L 13-56 [facility] Work Phone: CO2 [Moles/Vol] 27.0 mmol/L 21.0-32.0 [facility] Work Phone: Globulin (S) [Mass/Vol] 3.1 g/dL 2.2-4.2 [facility] Work Phone: Urea nitrogen/Creatinine [Mass ratio] 24.2 mg/mg 10-20 [facility] Work Phone: Laboratory - Hematology and Cell countson 08-18-2022 Erythrocyte distribution width (RBC) [Entitic vol] 41.6 fL 35.1-43.9 [facility] Work Phone: Erythrocyte distribution width (RBC) [Ratio] 13.2 % 11.6-14.6 [facility] Work Phone: Immature granulocytes/100 WBC (Bld) 0.200 % 0.0-0.9 [facility] Work Phone: Comment on above: IG% - Immature Granu locytes (promyelocytes, myelocytes and metamyelocytes) > 1% indicates that a LEFT SHIFT is Present. MCH (RBC) [Entitic mass] 29.1 pg 27.0-32.0 [facility] Work Phone: Nucleated RBC/100 WBC (Bld) [Ratio] 0 % 0-5 [facility] Work Phone: MCHC Auto (RBC) [Mass/Vol]on 08-18-2022 MCHC (RBC) [Mass/Vol] 33.9 g/dL 32-36 [facility] Work Phone: No Panel Informationon 08-18 Estimated GFR (MDRD) Amer 100 mL/min >60 [facility] Work Phone: Comment on above: GFR Calc Estimated GFR (MDRD) Non-Af Amer 83 mL/min >60 [facility] Work Phone: Comment on above: Non- GFR Calc Thyroid Stimulating Hormone (TSH) 3.00 uIU/mL 0.358-3.74 [facility] Work Phone: Vitamin D 25-Hydroxy 34.5 ng/mL [facility] Work Phone: [phone] Comment on above: Vitamin D 25(OH) Sta tus Range Deficiency <20 ng/mL (50nmol/L) Insufficiency 20 - 30 ng/mL (50 - 75 nmol/L) Sufficiency 30 - 100 ng/mL (75 - 250 nmol/L) Toxicity >100 ng/mL (>250 nmol/L) Platelets bldon 08-18-2022 Platelets (Bld) [#/Vol] 238 10*3/uL 150-450 [facility] Work Phone: Serum or plasma albumin manoj urement (mass/volume)on 08-18-2022 Albumin [Mass/Vol] 3.4 g/dL 3.2-5.0 [facility] Work Phone: Serum or plasma albumin/glob ulin mass ratioon 08-18-2022 Albumin/Globulin [Mass ratio] 1.1 {ratio} 0.9-2.4 [facility] Work Phone: Serum or plasma calcium manoj urement (mass/volume)on 08-18-2022 Calcium [Mass/Vol] 8.9 mg/dL 8.5-10.1 [facility] Work Phone: Serum or plasma creatinine m easurement (mass/volume)on 08-18-2022 Creatinine [Mass/Vol] 0.74 mg/dL 0.55-1.02 [facility] Work Phone: Comment on above: The validity of the calculated GFR & GFRAA in patients over 70 years has not been determined. Clinical correlation is essential. Serum or plasma urea nitroge n measurement (mass/volume)on 08-18-2022 Urea nitrogen [Mass/Vol] 18 mg/dL 7-18 [facility] Work Phone: Thin prep Papanicolaou smear with manual screeningon 08-18-2022 Thin prep Papanicolaou smear with manual screening 19 U/L 15-37 [facility] Work Phone: Thin prep Papanicolaou smear with manual screening 4 5-15 [facility] Work Phone: No Panel Informationon 06-30 Thyroid Stimulating Hormone (TSH) 2.83 uIU/mL 0.358-3.74 [facility] Work Phone: Absolute lymphocyte counton 02-23-2022 Lymphocytes Auto (Unsp spec) [#/Vol] 1.24 10*3/uL 0.83-4.51 [facility] Work Phone: Basophil percentageon 2021 Basophils/100 WBC (Bld) 0.4 % 0-1 [facility] Work Phone: Bilirubin [Mass/Vol] 0.40 mg/dL 0.20-1.00 [facility] Work Phone: Comment on above: For patients on eltr ombopag therapy, use of [employer] [place] TBIL is not recommended. Chloride [Moles/Vol] 105 mmol/L 98-107 [facility] Work Phone: Eosinophils/100 WBC (Bld) 3.4 % 0-5 [facility] Work Phone: Glucose [Mass/Vol] 94 mg/dL 74-106 [facility] Work Phone: Neutrophils (Bld) [#/Vol] 5.3 10*3/uL 2.0-7.7 [facility] Work Phone: Neutrophils/100 WBC (Bld) 69.2 % 47-70 [facility] Work Phone: Potassium [Moles/Vol] 4.1 mmol/L 3.5-5.1 [facility] Work Phone: Protein [Mass/Vol] 6.9 g/dL 6.4-8.2 [facility] Work Phone: Sodium [Moles/Vol] 139 mmol/L 136-145 [facility] Work Phone: WBC (Bld) [#/Vol] 7.6 10*3/uL 4.4-11.0 [facility] Work Phone: [phone] Blood erythrocytes count (nu mber/volume)on 02-23-2022 RBC (Bld) [#/Vol] 4.84 10*6/uL 4.2-5.4 [facility] Work Phone: Blood hemoglobin measurement (mass/volume)on 02-23-2022 Hemoglobin (Bld) [Mass/Vol] 13.7 g/dL 12.0-15.0 [facility] Work Phone: Blood lymphocytes/100 leukoc yteson 02-23-2022 Lymphocytes/100 WBC (Bld) 16.3 % 19-41 [facility] Work Phone: Blood monocytes/100 leukocyt eson 02-23-2022 Monocytes/100 WBC (Bld) 10.4 % 0-10 [facility] Work Phone: Blood platelet mean volumeon 02-23-2022 Platelet mean volume (Bld) [Entitic vol] 8.9 fL 6.2-12.0 [facility] Work Phone: Determination of erythrocyte mean corpuscular volume (MCV)on 02-23-2022 MCV (RBC) [Entitic vol] 85.5 fL 81-99 [facility] Work Phone: Hematocrit Auto (Bld) [Volum e fraction]on 02-23-2022 Hematocrit (Bld) [Volume fraction] 41.4 % 37-47 [facility] Work Phone: Laboratory - Chemistry and C hemistry - challengeon 02-23-2022 ALP [Catalytic activity/Vol] 69 U/L 45-117 [facility] Work Phone: ALT [Catalytic activity/Vol] 26 U/L 13-56 [facility] Work Phone: CO2 [Moles/Vol] 29.0 mmol/L 21.0-32.0 [facility] Work Phone: Globulin (S) [Mass/Vol] 3.5 g/dL 2.2-4.2 [facility] Work Phone: Urea nitrogen/Creatinine [Mass ratio] 17.6 mg/mg 10-20 [facility] Work Phone: Laboratory - Hematology and Cell countson 02-23-2022 Erythrocyte distribution width (RBC) [Entitic vol] 43.7 fL 35.1-43.9 [facility] Work Phone: Erythrocyte distribution width (RBC) [Ratio] 13.9 % 11.6-14.6 [facility] Work Phone: Immature granulocytes/100 WBC (Bld) 0.300 % 0.0-0.9 [facility] Work Phone: Comment on above: IG% - Immature Granu locytes (promyelocytes, myelocytes and metamyelocytes) > 1% indicates that a LEFT SHIFT is Present. MCH (RBC) [Entitic mass] 28.3 pg 27.0-32.0 [facility] Work Phone: Nucleated RBC/100 WBC (Bld) [Ratio] 0 % 0-5 [facility] Work Phone: MCHC Auto (RBC) [Mass/Vol]on 02-23-2022 MCHC (RBC) [Mass/Vol] 33.1 g/dL 32-36 [facility] Work Phone: No Panel Informationon 02-23 Estimated GFR (MDRD) Amer 111 mL/min >60 [facility] Work Phone: Comment on above: GFR Calc Estimated GFR (MDRD) Non-Af Amer 92 mL/min >60 [facility] Work Phone: Comment on above: Non- GFR Calc Thyroid Stimulating Hormone (TSH) 5.18 uIU/mL 0.358-3.74 [facility] Work Phone: Vitamin D 25-Hydroxy 32.8 ng/mL [facility] Work Phone: Comment on above: Vitamin D 25(OH) Sta tus Range Deficiency <20 ng/mL (50nmol/L) Insufficiency 20 - 30 ng/mL (50 - 75 nmol/L) Sufficiency 30 - 100 ng/mL (75 - 250 nmol/L) Toxicity >100 ng/mL (>250 nmol/L) Platelets bldon 02-23-2022 Platelets (Bld) [#/Vol] 272 10*3/uL 150-450 [facility] Work Phone: Serum or plasma albumin manoj urement (mass/volume)on 02-23-2022 Albumin [Mass/Vol] 3.4 g/dL 3.2-5.0 [facility] Work Phone: Serum or plasma albumin/glob ulin mass ratioon 02-23-2022 Albumin/Globulin [Mass ratio] 1.0 {ratio} 0.9-2.4 [facility] Work Phone: Serum or plasma calcium manoj urement (mass/volume)on 02-23-2022 Calcium [Mass/Vol] 8.8 mg/dL 8.5-10.1 [facility] Work Phone: Serum or plasma creatinine m easurement (mass/volume)on 02-23-2022 Creatinine [Mass/Vol] 0.68 mg/dL 0.55-1.02 [facility] Work Phone: Comment on above: The validity of the calculated GFR & GFRAA in patients over 70 years has not been determined. Clinical correlation is essential. Serum or plasma urea nitroge n measurement (mass/volume)on 02-23-2022 Urea nitrogen [Mass/Vol] 12 mg/dL 7-18 [facility] Work Phone: Thin prep Papanicolaou smear with manual screeningon 02-23-2022 Thin prep Papanicolaou smear with manual screening 28 U/L 15-37 [facility] Work Phone: Thin prep Papanicolaou smear with manual screening 5 5-15 [facility] Work Phone: Absolute lymphocyte counton 02-16-2022 Lymphocytes Auto (Unsp spec) [#/Vol] 1.05 10*3/uL 0.83-4.51 [facility] Work Phone: Basophil percentageon 2021 Basophils/100 WBC (Bld) 0.3 % 0-1 [facility] Work Phone: Bilirubin [Mass/Vol] 0.40 mg/dL 0.20-1.00 [facility] Work Phone: Comment on above: For patients on eltr ombopag therapy, use of Dimension [place] TBIL is not recommended. Chloride [Moles/Vol] 106 mmol/L 98-107 [facility] Work Phone: Eosinophils/100 WBC (Bld) 4.7 % 0-5 [facility] Work Phone: Glucose [Mass/Vol] 81 mg/dL 74-106 [facility] Work Phone: Neutrophils (Bld) [#/Vol] 3.9 10*3/uL 2.0-7.7 [facility] Work Phone: [phone] Neutrophils/100 WBC (Bld) 65.1 % 47-70 [facility] Work Phone: Potassium [Moles/Vol] 3.9 mmol/L 3.5-5.1 [facility] Work Phone: Protein [Mass/Vol] 6.5 g/dL 6.4-8.2 [facility] Work Phone: Sodium [Moles/Vol] 140 mmol/L 136-145 [facility] Work Phone: WBC (Bld) [#/Vol] 6.0 10*3/uL 4.4-11.0 [facility] Work Phone: [phone] Blood erythrocytes count (nu mber/volume)on 02-16-2022 RBC (Bld) [#/Vol] 4.72 10*6/uL 4.2-5.4 [facility] Work Phone: Blood hemoglobin measurement (mass/volume)on 02-16-2022 Hemoglobin (Bld) [Mass/Vol] 13.4 g/dL 12.0-15.0 [facility] Work Phone: Blood lymphocytes/100 leukoc yteson 02-16-2022 Lymphocytes/100 WBC (Bld) 17.5 % 19-41 [facility] Work Phone: Blood monocytes/100 leukocyt eson 02-16-2022 Monocytes/100 WBC (Bld) 12.1 % 0-10 [facility] Work Phone: Blood platelet mean volumeon 02-16-2022 Platelet mean volume (Bld) [Entitic vol] 8.9 fL 6.2-12.0 [facility] Work Phone: Determination of erythrocyte mean corpuscular volume (MCV)on 02-16-2022 MCV (RBC) [Entitic vol] 87.7 fL 81-99 [facility] Work Phone: Erythrocyte sedimentation ra ria 02-16-2022 ESR (Bld) [Velocity] 11 mm/h 0-30 [facility] Work Phone: Hematocrit Auto (Bld) [Volum e fraction]on 02-16-2022 Hematocrit (Bld) [Volume fraction] 41.4 % 37-47 [facility] Work Phone: Laboratory - Chemistry and C hemistry - challengeon 02-16-2022 ALP [Catalytic activity/Vol] 64 U/L 45-117 [facility] Work Phone: ALT [Catalytic activity/Vol] 21 U/L 13-56 [facility] Work Phone: CO2 [Moles/Vol] 28.0 mmol/L 21.0-32.0 [facility] Work Phone: Cobalamin (Vitamin B12) [Mass/Vol] 346 pg/mL 211-911 [facility] Work Phone: Globulin (S) [Mass/Vol] 3.2 g/dL 2.2-4.2 [facility] Work Phone: Urea nitrogen/Creatinine [Mass ratio] 14.0 mg/mg 10-20 [facility] Work Phone: Laboratory - Hematology and Cell countson 02-16-2022 Erythrocyte distribution width (RBC) [Entitic vol] 44.8 fL 35.1-43.9 [facility] Work Phone: Erythrocyte distribution width (RBC) [Ratio] 13.8 % 11.6-14.6 [facility] Work Phone: Immature granulocytes/100 WBC (Bld) 0.300 % 0.0-0.9 [facility] Work Phone: Comment on above: IG% - Immature Granu locytes (promyelocytes, myelocytes and metamyelocytes) > 1% indicates that a LEFT SHIFT is Present. MCH (RBC) [Entitic mass] 28.4 pg 27.0-32.0 [facility] Work Phone: Nucleated RBC/100 WBC (Bld) [Ratio] 0 % 0-5 [facility] Work Phone: MCHC Auto (RBC) [Mass/Vol]on 02-16-2022 MCHC (RBC) [Mass/Vol] 32.4 g/dL 32-36 [facility] Work Phone: No Panel Informationon 02-16 Anti-Nuclear Antibody Screen Negative Negative [facility] Work Phone: Comment on above: Performed at: [address] [id number] Director: Houston Bowden PhD, Phone: [phone] Estimated GFR (MDRD) Amer 118 mL/min >60 [facility] Work Phone: Comment on above: GFR Calc Estimated GFR (MDRD) Non-Af Amer 98 mL/min >60 [facility] Work Phone: Comment on above: Non- GFR Calc Vitamin D 25-Hydroxy 34.6 ng/mL [facility] Work Phone: Comment on above: Vitamin D 25(OH) Sta tus Range Deficiency <20 ng/mL (50nmol/L) Insufficiency 20 - 30 ng/mL (50 - 75 nmol/L) Sufficiency 30 - 100 ng/mL (75 - 250 nmol/L) Toxicity >100 ng/mL (>250 nmol/L) Platelets bldon 02-16-2022 Platelets (Bld) [#/Vol] 257 10*3/uL 150-450 [facility] Work Phone: Serum or plasma C reactive p rotein measurement (mass/volume)on 02-16-2022 CRP [Mass/Vol] 6.72 mg/L 0.0-3.0 [facility] Work Phone: Comment on above: C-Reactive Protein ( CRP) provides useful information for thediagnosis, therapy and monitoring of inflammatory processesand associated diseases. For the evaluation of Relative Riskfor Cardiovascular Disease, a High Sensitivity CRP (HSCRP)should be ordered. Serum or plasma albumin manoj urement (mass/volume)on 02-16-2022 Albumin [Mass/Vol] 3.3 g/dL 3.2-5.0 [facility] Work Phone: Serum or plasma albumin/glob ulin mass ratioon 02-16-2022 Albumin/Globulin [Mass ratio] 1.0 {ratio} 0.9-2.4 [facility] Work Phone: Serum or plasma calcium manoj urement (mass/volume)on 02-16-2022 Calcium [Mass/Vol] 8.2 mg/dL 8.5-10.1 [facility] Work Phone: Serum or plasma creatinine m easurement (mass/volume)on 02-16-2022 Creatinine [Mass/Vol] 0.64 mg/dL 0.55-1.02 [facility] Work Phone: Comment on above: The validity of the calculated GFR & GFRAA in patients over 70 years has not been determined. Clinical correlation is essential. Serum or plasma folate measu rement (mass/volume)on 02-16-2022 Folate [Mass/Vol] 33.60 ng/mL 3.1-55.4 [facility] Work Phone: Serum or plasma urea nitroge n measurement (mass/volume)on 02-16-2022 Urea nitrogen [Mass/Vol] 9 mg/dL 7-18 [facility] Work Phone: Serum rheumatoid factor dete ctionon 02-16-2022 Rheumatoid factor Ql (S) < 10.0 IU/mL <15 [facility] Work Phone: Thin prep Papanicolaou smear with manual screeningon 02-16-2022 Thin prep Papanicolaou smear with manual screening 23 U/L 15-37 [facility] Work Phone: Thin prep Papanicolaou smear with manual screening 6 5-15 [facility] Work Phone: Aldolase ser/plason 11-29-19 22 Aldolase [Catalytic activity/Vol] 8.6 mU/mL [facility] Work Phone: Comment on above: Performed at: [address] [id number] Director: Houston Bowden PhD, Phone: [phone] Laboratory - Chemistry and C hemistry - challengeon 11-29-2021 CK [Catalytic activity/Vol] 67 U/L 26-192 [facility] Work Phone: No Panel Informationon 11-17 Miscellaneous Test Comment MAILED SPECIMEN [facility] Work Phone: Absolute lymphocyte counton 10-29-2021 Lymphocytes Auto (Unsp spec) [#/Vol] 0.90 10*3/uL 0.83-4.51 [facility] Work Phone: Basophil percentageon 2021 Basophils/100 WBC (Bld) 0.6 % 0-1 [facility] Work Phone: Bilirubin [Mass/Vol] 0.60 mg/dL 0.20-1.00 [facility] Work Phone: Comment on above: For patients on eltr ombopag therapy, use of [place] TBIL is not recommended. Chloride [Moles/Vol] 107 mmol/L 98-107 [facility] Work Phone: Eosinophils/100 WBC (Bld) 2.5 % 0-5 [facility] Work Phone: Glucose [Mass/Vol] 93 mg/dL 74-106 [facility] Work Phone: Comment on above: Please note revised GLUCOSE reference range effective 2017. Neutrophils (Bld) [#/Vol] 3.2 10*3/uL 2.0-7.7 [facility] Work Phone: Neutrophils/100 WBC (Bld) 65.7 % 47-70 [facility] Work Phone: Potassium [Moles/Vol] 4.0 mmol/L 3.5-5.1 [facility] Work Phone: [phone] Protein [Mass/Vol] 6.8 g/dL 6.4-8.2 [facility] Work Phone: Sodium [Moles/Vol] 141 mmol/L 136-145 [facility] Work Phone: WBC (Bld) [#/Vol] 4.9 10*3/uL 4.4-11.0 [facility] Work Phone: Bilirubin Test strip Ql (U)o n 10-29-2021 Bilirubin Ql (U) Negative Negative [facility] Work Phone: Blood erythrocytes count (nu mber/volume)on 10-29-2021 RBC (Bld) [#/Vol] 4.93 10*6/uL 4.2-5.4 [facility] Work Phone: Blood hemoglobin measurement (mass/volume)on 10-29-2021 Hemoglobin (Bld) [Mass/Vol] 14.3 g/dL 12.0-15.0 [facility] Work Phone: Blood lymphocytes/100 leukoc yteson 10-29-2021 Lymphocytes/100 WBC (Bld) 18.5 % 19-41 [facility] Work Phone: Blood monocytes/100 leukocyt eson 10-29-2021 Monocytes/100 WBC (Bld) 12.3 % 0-10 [facility] Work Phone: Blood platelet mean volumeon 10-29-2021 Platelet mean volume (Bld) [Entitic vol] 9.0 fL 6.2-12.0 [facility] Work Phone: Determination of erythrocyte mean corpuscular volume (MCV)on 10-29-2021 MCV (RBC) [Entitic vol] 88.2 fL 81-99 [facility] Work Phone: Dilute Colby's viper venom timeon 10-29-2021 dRVVT Coag (PPP) [Time] 32.6 s [facility] Work Phone: Erythrocyte sedimentation ra ria 10-29-2021 ESR (Bld) [Velocity] 10 mm/h 0-30 [facility] Work Phone: Hematocrit Auto (Bld) [Volum e fraction]on 10-29-2021 Hematocrit (Bld) [Volume fraction] 43.5 % 37-47 [facility] Work Phone: INR in Blood by Coagulation assayon 10-29-2021 INR Coag (Bld) [Relative time] 1.1 {INR} [facility] Work Phone: Ketones Test strip Ql (U)on 10-29-2021 Ketones Ql (U) Negative Negative [facility] Work Phone: Laboratory - Chemistry and C hemistry - challengeon 10-29-2021 ALP [Catalytic activity/Vol] 65 U/L 45-117 [facility] Work Phone: ALT [Catalytic activity/Vol] 32 U/L 13-56 [facility] Work Phone: CO2 [Moles/Vol] 28.0 mmol/L 21.0-32.0 [facility] Work Phone: Globulin (S) [Mass/Vol] 3.4 g/dL 2.2-4.2 [facility] Work Phone: Urea nitrogen/Creatinine [Mass ratio] 18.3 mg/mg 10-20 [facility] Work Phone: Laboratory - Coagulationon 0 10-29-2021 aPTT Coag (Bld) [Time] 31.0 s [facility].1[facility] [facility] Work Phone: PT Coag (PPP) [Time] 13.4 s 11.7-14.9 [facility] Work Phone: Laboratory - Hematology and Cell countson 10-29-2021 Erythrocyte distribution width (RBC) [Entitic vol] 45.5 fL 35.1-43.9 [facility] Work Phone: Erythrocyte distribution width (RBC) [Ratio] 14.1 % 11.6-14.6 [facility] Work Phone: Immature granulocytes/100 WBC (Bld) 0.400 % 0.0-0.9 [facility] Work Phone: Comment on above: IG% - Immature Granu locytes (promyelocytes, myelocytes and metamyelocytes) > 1% indicates that a LEFT SHIFT is Present. MCH (RBC) [Entitic mass] 29.0 pg 27.0-32.0 [facility] Work Phone: Nucleated RBC/100 WBC (Bld) [Ratio] 0 % 0-5 [facility] Work Phone: Laboratory - Miscellaneous t estson 10-29-2021 Service comment (Unsp spec) [Interp] Comment [facility] Work Phone: Comment on above: Results do not indic ate the presence of a LupusAnticoagulant: abnormal high screening results (PTT-LA,dRVVT, mixing studies), may be due to medication (heparin,warfarin, aspirin), Factor inhibitors, anticardiolipinantibodies, or poor specimen integrity.Performed at: [address] [id number] Director: Micheline Saravia MD, Phone: [phone] MCHC Auto (RBC) [Mass/Vol]on 10-29-2021 MCHC (RBC) [Mass/Vol] 32.9 g/dL 32-36 [facility] Work Phone: Nitrite Test strip Ql (U)on 10-29-2021 Nitrite Ql (U) Negative Negative [facility] Work Phone: No Panel Informationon 10-29 Miscellaneous Test Comment MAILED SPECIMEN [facility] Work Phone: Estimated GFR (MDRD) Amer 144 mL/min >60 [facility] Work Phone: Comment on above: GFR Calc Estimated GFR (MDRD) Non-Af Amer 119 mL/min >60 [facility] Work Phone: Comment on above: Non- GFR Calc Hepatitis B Surface Antigen Non-Reactive Nonreactive [facility] Work Phone: Hepatitis C Antibody Non-Reactive Nonreactive [facility] Work Phone: Comment on above: Non Reactive: < 0.8 Equivocal: >/= 0.8 to < 1.0 Reactive: >/= 1.0The CDC recommends that a reactive/equivocal HCV antibody result be followed up by the HCV Nucleic Acid Amplificationtest (939859) Platelets bldon 10-29-2021 Platelets (Bld) [#/Vol] 250 10*3/uL 150-450 [facility] Work Phone: Protein Test strip Ql (U)on 10-29-2021 Protein Ql (U) Negative Negative [facility] Work Phone: Serum hepatitis B virus surf abril antibody IgG detectionon 10-29-2021 HBV surface IgG Ql (S) Non-Reactive [facility] Work Phone: Comment on above: Non Reactive: Incons istent with immunity less than <10 mIU/mL Reactive: Consistent with immunity greater than or equal to 10 mIU/mL Serum or plasma C reactive p rotein measurement (mass/volume)on 10-29-2021 CRP [Mass/Vol] 3.52 mg/L 0.0-3.0 [facility] Work Phone: Comment on above: C-Reactive Protein ( CRP) provides useful information for thediagnosis, therapy and monitoring of inflammatory processesand associated diseases. For the evaluation of Relative Riskfor Cardiovascular Disease, a High Sensitivity CRP (HSCRP)should be ordered. Serum or plasma albumin manoj urement (mass/volume)on 10-29-2021 Albumin [Mass/Vol] 3.4 g/dL 3.2-5.0 [facility] Work Phone: Serum or plasma albumin/glob ulin mass ratioon 10-29-2021 Albumin/Globulin [Mass ratio] 1.0 {ratio} 0.9-2.4 [facility] Work Phone: Serum or plasma calcium manoj urement (mass/volume)on 10-29-2021 Calcium [Mass/Vol] 9.0 mg/dL 8.5-10.1 [facility] Work Phone: Serum or plasma creatinine m easurement (mass/volume)on 10-29-2021 Creatinine [Mass/Vol] 0.54 mg/dL 0.55-1.02 [facility] Work Phone: Comment on above: The validity of the calculated GFR & GFRAA in patients over 70 years has not been determined. Clinical correlation is essential. Serum or plasma urea nitroge n measurement (mass/volume)on 10-29-2021 Urea nitrogen [Mass/Vol] 10 mg/dL 7-18 [facility] Work Phone: Thin prep Papanicolaou smear with manual screeningon 10-29-2021 Thin prep Papanicolaou smear with manual screening 38 U/L 15-37 [facility] Work Phone: Thin prep Papanicolaou smear with manual screening 6 5-15 [facility] Work Phone: Thin prep Papanicolaou smear with manual screening 34.6 sec [facility] Work Phone: Thin prep Papanicolaou smear with manual screening 1.00 Ratio [facility] Work Phone: Thin prep Papanicolaou smear with manual screening 36.6 sec [facility] Work Phone: Thin prep Papanicolaou smear with manual screening Comment: [facility] Work Phone: Comment on above: No lupus anticoagula nt was detected. Thrombin time in platelet po or plasmaon 10-29-2021 Thrombin time Coag (PPP) [Time] 15.2 sec [facility] Work Phone: Urine blood detectionon RBC Ql (U) Negative Negative [facility] Work Phone: Urine clarityon 10-29-2021 Clarity (U) Sl. Cloudy Clear [facility] Work Phone: Urine color determinationon 10-29-2021 Color (U) Yellow Yellow [facility] Work Phone: Urine creatinine measurement (mass/volume)on 10-29-2021 Creatinine (U) [Mass/Vol] 108.00 mg/dL NO RANGE EST. [facility] Work Phone: Urine glucose detectionon Glucose Ql (U) Normal mg/dl Normal [facility] Work Phone: Urine leukocyte esterase det ection by dipstickon 10-29-2021 Leukocyte esterase Test strip Ql (U) 100 /ul Negative [facility] Work Phone: Urine pHon 10-29-2021 pH (U) 5.0 [pH] [facility] Work Phone: Urine protein measurement (m ass/volume)on 10-29-2021 Protein (U) [Mass/Vol] 7.6 mg/dL 0.0-11.8 [facility] Work Phone: Urine protein/creatinine mas s ratioon 10-29-2021 Protein/Creatinine (U) [Mass ratio] 70 mg/g CRE 0-200 [facility] Work Phone: Urine specific gravity measu rementon 10-29-2021 Specific gravity (U) [Rel density] 1.020 [facility] Work Phone: Urobilinogen Auto test strip Ql (U)on 10-29-2021 Urobilinogen Ql (U) Normal mg/dl Normal [facility] Work Phone: Vital Signs Date Time Vital Sign Value Performing Clinician Faci lity 04-06-2025 18:14-0400 Body temperature 98.2 [degF] Dr. Geoff Perez MD Work Phone: [facility] 04-06-2025 18:14-0400 Diastolic blood pressure 75 mm[Hg] Dr. Geoff Perez MD Work Phone: [facility] 04-06-2025 18:14-0400 Heart rate 100 /min Dr. Geoff Perez MD Work Phone: [phone] [place] [address] 04-06-2025 18:14-0400 Respiratory rate 15 /min Dr. Geoff Perez MD Work Phone: [facility] 04-06-2025 18:14-0400 SaO2% (BldA) [Mass fraction] 93 % Dr. Geoff Perez MD Work Phone: [facility] 04-06-2025 18:14-0400 Systolic blood pressure 160 mm[Hg] Dr. Geoff Perez MD Work Phone: [phone] [place] [address] 04-06-2025 15:46-0400 Inhaled oxygen flow rate 2 L/min Dr. Geoff Perez MD Work Phone: [facility] 04-06-2025 15:08-0400 Body mass index (BMI) [Ratio] 28.2 kg/m2 Dr. Geoff Perez MD Work Phone: [facility] 04-06-2025 15:08-0400 Body weight 86.[address] Geoff Perez MD Work Phone: [facility] 04-06-2025 14:43-0400 Body height 175.[address] Geoff Perez MD Work Phone: [facility] 04-21-2023 10:04-0400 Body temperature 97.6 [degF] Dr. Geoff Perez Work Phone: [facility] 04-21-2023 10:04-0400 Diastolic blood pressure 79 mm[Hg] Dr. Geoff Perez Work Phone: [facility] 04-21-2023 10:04-0400 Heart rate 66 /min Dr. Geoff Perez Work Phone: [facility] 04-21-2023 10:04-0400 Respiratory rate 18 /min Dr. Geoff Perez Work Phone: [facility] 04-21-2023 10:04-0400 SaO2% (BldA) [Mass fraction] 96 % Dr. Geoff Perez Work Phone: [facility] 04-21-2023 10:04-0400 Systolic blood pressure 111 mm[Hg] Dr. Geoff Perez Work Phone: [facility] 04-21-2023 08:06-0400 Body height 175.[address] Geoff Perez Work Phone: [facility] 04-21-2023 08:06-0400 Body mass index (BMI) [Ratio] 29.2 kg/m2 Dr. Geoff Perez Work Phone: [facility] 04-21-2023 08:06-0400 Body weight [address] Geoff Perez Work Phone: [facility] 03-09-2023 09:06-0400 Body mass index (BMI) [Ratio] 29.7 kg/m2 Dr. Geoff Perez Work Phone: [facility] 03-09-2023 09:06-0400 Body temperature 97.1 [degF] Dr. Geoff Perez Work Phone: [facility] 03-09-2023 09:06-0400 Body weight 91.[address] Geoff Perez Work Phone: [facility] 03-09-2023 09:06-0400 Diastolic blood pressure 81 mm[Hg] Dr. Geoff Perez Work Phone: [facility] 03-09-2023 09:06-0400 Heart rate 58 /min Dr. Geoff Perez Work Phone: [facility] 03-09-2023 09:06-0400 Respiratory rate 20 /min Dr. Geoff Perez Work Phone: [facility] 03-09-2023 09:06-0400 SaO2% (BldA) [Mass fraction] 99 % Dr. Geoff Perez Work Phone: [facility] 03-09-2023 09:06-0400 Systolic blood pressure 128 mm[Hg] Dr. Geoff Perez Work Phone: [facility] Encounters Encounter Date Encounter Type Care Provider Facility Start: 04-06-2025 Non-patient / Non-visit Dr. Naida Barajas MD -[facility] Work Phone: Start: 04-06-2025 Evaluation and management of inpatient Dr. Carlos Barajas MD -Medical Surgical 3 Work Phone: Start: 04-06-[address] Geoff Perez MD Work Phone: [facility] Work Phone: Start: 03-18-2025 End: 03-18-[address] Geoff Perez MD Work Phone: [facility] Work Phone: Start: 03-18-2025 End: 03-18-[address] Geoff Perez MD -Laboratory Specimen Work Phone: Start: 03-18-2025 End: 03-18-2025 ambulatory Geoff Perez Facility:[facility] Start: 02-21-2025 End: 02-21-[address] Geoff Perez MD Work Phone: [facility] Work Phone: Start: 02-21-2025 End: 02-21-[address] Geoff Perez MD -Laboratory, Specimen Work Phone: Start: 02-21-2025 End: 02-21-2025 ambulatory Geoff Perez Facility:[facility] Start: 01-28-2025 End: 01-28-[address] Geoff Perez MD Work Phone: [facility] Work Phone: Start: 01-28-2025 End: 01-28-[address] Geoff Perez MD -Laboratory Work Phone: Start: 01-28-2025 End: 01-28-2025 ambulatory [facility] Facility:[facility] Start: 01-07-2025 End: 01-07-[address] Geoff Perez MD Work Phone: [facility] Work Phone: Start: 01-07-2025 End: 01-07-[address] Geoff Perez MD -Cat Scan, [facility] Work Phone: Start: 01-06-2025 End: 01-07-[address] Geoff Perez MD Work Phone: [facility] Work Phone: Start: 01-06-2025 End: 01-06-[address] Geoff Perez MD -Laboratory, Phy Office 3rd Flr Start: 01-06-2025 End: 01-06-2025 ambulatory [facility] Facility:[facility] Start: 12-17-2024 End: 12-17-[address] Geoff Perez MD Work Phone: [facility] Work Phone: Start: 12-17-2024 End: 12-17-[address] Geoff Perez MD -Laboratory, Phy Office 3rd Flr Start: 12-17-2024 End: 12-17-[facility]24 [facility] Start: 12-03-2024 End: 12-03-[address] Geoff Perez MD -Laboratory Work Phone: Start: 12-03-2024 End: 12-03-2024 ambulatory [facility] Facility:[facility] Start: 10-03-2024 End: 10-03-[address] Geoff Perez MD -Laboratory, Phy Office 3rd Flr Start: 10-03-2024 End: 10-03-2024 ambulatory [facility] Facility:[facility] Start: 08-07-2024 End: 08-07-2024 ambulatory [facility] Facility:[facility] Start: 07-24-2024 End: 07-24-2024 ambulatory [facility] Facility:[facility] Start: 05-27-2024 End: 05-27-2024 ambulatory [facility] Facility:[facility] Start: 05-02-2024 End: 05-02-2024 ambulatory [facility] Facility:[facility] Start: 12-26-2023 End: 12-26-2023 ambulatory [facility] Work Phone: Start: 12-26-2023 End: 12-26-2023 Patient encounter procedure [facility]-Outpatient Bone Densitometry Work Phone: Start: 11-21-2023 End: 11-21-2023 ambulatory [facility] Work Phone: Start: 11-21-2023 End: 11-21-2023 Patient encounter procedure [facility]-Laboratory, Phy Office 3rd Flr Start: 08-16-2023 End: 08-16-2023 ambulatory [facility] Work Phone: Start: 08-16-2023 End: 08-16-2023 Patient encounter procedure [facility]-Cat Scan, [facility] Work Phone: Start: 08-09-2023 End: 08-09-2023 Patient encounter procedure [facility]-Laboratory, Phy Office 3rd Flr Start: 06-07-2023 End: 06-07-2023 Patient encounter procedure [facility]-Radiology, [facility] Work Phone: Start: 04-21-2023 Non-patient / Non-visit Dr. Gume Perez Work Phone: [facility] Start: 04-21-2023 End: 04-21-2023 Admission to same day surgery center Dr. Geoff Perez Work Phone: [facility]-Endoscopy Work Phone: Start: 04-21-2023 End: 04-21-[address] Geoff Perez Work Phone: [facility] Work Phone: Start: 04-19-2023 End: 04-19-[address] Geoff Perez Work Phone: [facility] Work Phone: Start: 04-19-2023 End: 04-19-[address] Geoff Perez Work Phone: [facility]-Radiology, [facility] Work Phone: Start: 03-09-2023 End: 03-09-[address] Geoff Perez Work Phone: [facility] Work Phone: Start: 02-16-2023 End: 02-16-2023 ambulatory [facility] Work Phone: Start: 02-16-2023 End: 02-16-2023 Patient encounter procedure [facility]-Laboratory, Phy Office 3rd Flr Start: 02-15-2023 End: 02-15-2023 Patient encounter procedure [facility]-Pulmonary Services/Neurology Start: 08-18-2022 End: 08-18-[address] Geoff Perez Work Phone: [facility] Work Phone: Start: 08-18-2022 End: 08-18-[address] Geoff Perez Work Phone: [facility]-Laboratory, Phy Office 3rd Flr Start: 07-13-2022 Non-patient / Non-visit Dr. Gume Perez Work Phone: [facility] Start: 07-13-2022 End: 09-21-[address] Geoff Perez Work Phone: [facility] Work Phone: Start: 07-13-2022 End: 07-13-[address] Geoff Perez Work Phone: [facility]-Cardiovascular Services Start: 06-30-2022 End: 06-30-2022 ambulatory [facility] Work Phone: Start: 06-30-2022 End: 06-30-2022 Patient encounter procedure [facility]-Laboratory, y Office 3rd Flr Start: 02-23-2022 End: 02-23-2022 [facility] Start: 02-16-2022 End: 02-16-2022 Patient encounter procedure [facility]-Radiology, [facility] Start: 11-29-2021 End: 11-29-2021 [facility] Start: 11-17-2021 End: 11-17-2021 [facility] Start: 10-29-2021 End: 10-29-2021 [facility] Procedures Date Procedure Procedure Detail Performing Clinician Start: 04-06-2025 Plain chest X-ray Dr. Zan Perez MD Work Phone: Start: 04-06-[address] Geoff Perez MD Work Phone: Start: 04-06-2025 SARS-CoV-2, Influenz a & RSV (PCR) Dr. Geoff Perez MD Work Phone: Start: 03-18-2025 SARS-CoV-2, Influenz a & RSV [...] Work Phone: Start: 01-31-2025 Gram stain microscopy D dharmesh Perez MD Work Phone: Start: 01-31-2025 Respiratory [...] Treatment Date Care Activity Detail Author Start: 04-06-2025 Verification routine [facility] Start: 04-06-2025 Admission procedure [facility] Start: 04-06-2025 Hospital admission, emergency, from emergency room, medical nature [facility] Start: 04-06-2025 [facility] Start: 12-26-2023 Dual energy X-ray absorptiometry Dexa Bone Density Study [facility] Start: 12-26-2023 DXA Bone [Mass/Area] Bone density [facility] Start: 04-21-2023 Patient discharge [facility] Colonoscopy [facility] Patient referral [facility] Work Phone: Troponin T.cardiac [Mass/volume] in Serum or Plasma by High sensitivity method [facility] Immunizations Immunization Date Immunization Notes Care Provider Fa marvin 08-07-2015 tetanus toxoid, redu hill diphtheria toxoid, and acellular pertussis vaccine, adsorbed [facility] Payers Date Payer Category Payer Private Health Insurance [id number] 2023 Self-pay [id number] 2016 Private Health Insurance [id number] Unknown [id number] Unknown ANTHEM [id number] Unknown [id number] 2.16.8 [id number] Unknown [id number] 2.16.8 [id number] Unknown [id number] 2.16.8 [id number] Unknown [id number] 2.16.8 [id number] Unknown [id number] 2.16.8 [id number] Unknown [id number] 2.16.8 [id number] Unknown [id number] 2.16.8 [id number] Unknown [id number] 2.16.8 [id number] Unknown [id number] 2.16.8 [id number] Unknown [id number] 2.16.8 [id number] Unknown [id number] 2.16.8 [id number] Unknown [id number] 2.16.8 [id number] Unknown [id number] 2.16.8 [id number] Unknown [id number] 2.16.8 [id number] Social History Date Type Detail Facility Start: 03-25-2016 End: 04-17-2023 Tobacco smoking status NHIS Unknown if ever smoked [facility] Start: 1955 Sex Assigned At Female [facility] Start: 04-17-2023 Tobacco smoking status NHIS Never smoked tobacco (finding) [facility] Start: 01-01-2025 End: 01-31-2025 Sex Female (finding) [facility] Start: 04-06-2025 Tobacco smoking status NHIS Ex-smoker (finding) [facility] NEGATED: Highlighted row [facility] Goals Date Patient Goal Desired Activity /State Mental Status Date Assessment Result Facility 04-21-2023 Cognitive function Voice/Name [facility] Work Phone: Clinical Notes 04-21-2023 to 04-06-2025 Note Date & Type Note Facility 04-06-2025 History and physi pamela note [facility] 04-06-2025 Radiology Diagnostic study note [facility] Imaging Services [address] [place] [address] Chest 1 View (Portable) MR#: [id number] Acct: [id number] Name: CHRIS LARSEN Rep #: [id number] : 1955 F 70 From: Angélica Jenkins MD PCP: Dr. Geoff Perez MD Status: REG E R Study:Chest 1 View (Portable) Date of Exam: 04/06/25 Exam# [id number] Ordering Dr: Shree Simpson DO PROCEDURE: CHEST 1 VIEW (PORTABLE) 04/06/2025 REASON FOR EXAM: DYSPNEA TECHNIQUE: Frontal view of the chest. COMPARISON: Chest radiograph 03/18/2025. FINDINGS: Hardware: None. Heart: The heart size is normal. Lungs: No focal consolidation, pleural effusion or pneumothorax. Bones: Degenerative changes are identified within the thoracic spine. Chronic healed right rib fracture deformities. RAD/Chest 1 View (Portable) IMPRESSION: No Acute Findings. Reading Location: [id number] CC: Dr. Shay Simpson DO; Dr. Geoff Perez MD ~ Poolroom Table Attendant: Signed [facility] 03-19-2025 Radiology Diagnostic study note [facility] Imaging Services [address] [place] [address] Chest PA and Lateral MR#: [id number] Acct: [id number] Name: CHRIS LARSEN Rep #: [id number] : 1955 F 70 From: Delvis Ashraf MD PCP: Dr. Geoff Perez MD Status: REG MARGOTH Study:Chest PA and Lateral Date of Exam: 03/18/25 Exam# [id number] Ordering Dr: Geoff Perez MD PROCEDURE: CHEST PA AND LATERAL 03/18/2025 REASON FOR EXAM: SOB TECHNIQUE: Frontal and lateral views of the chest. COMPARISON: 06/07/2023 FINDINGS: The lungs appear clear. The cardiac and mediastinal contours appear within limits. Old appearing right-sided rib fracture deformities. Upper lumbar compression deformity again noted. RAD/Chest PA and Lateral IMPRESSION: No evidence of acute disease. Reading Location: [id number] CC: Dr. Geoff Perez MD ~ Poolroom Table Attendant: Signed [facility] 01-07-2025 Radiology Diagnostic study note [facility] Imaging Services [address] [place] [address] [id number] CTA Chest W/WO Contrast MR#: [id number] Acct: [id number] Name: CHRIS LARSEN Rep #: [id number] : 1955 F 69 From: Aarti Hyde MD PCP: Dr. Geoff Perez MD Status: REG MARGOTH Study:CTA Chest W/WO Contrast Date of Exam: 01/07/25 Exam# [id number] Ordering Dr: Geoff Perez MD EXAM: CT [...] evaluated due to suboptimal opacification. Reading Location: [facility] CC: Dr. Geoff Perez MD ~ Poolroom Table Attendant: Signed [facility] 04-21-2023 Procedure note [facility] 04-21-2023 Procedure note [facility] Evaluation note No assessment information availa ble [facility] Work Phone: Evaluation note Diagnosis Onset Date Positive colorectal cancer s creening using Cologuard test acute [facility] Work Phone: Evaluation note* Diagnosis Onset Date Resolution Status Admit Date Asthma exacerbation acute April 06, 2025 6:36pm Hypoxia acute April 06 6:36pm [facility] Work Phone: History and physical note Author Richmond Valdez [facility] April 21, 2023 9:18am Note Date/Time April 21, 2023 9:18 am [facility] Medical Records Department [address] [place] [address] History & Physical Exam 04/21/23917 MR#: [id number] Acct: [id number] Name: CHRIS LARSEN Rep #:[id number] : 1955 68 From: Richmond hernandez MD PCP: Dr. Geoff Perez MD Status:REG S DC Location: [id number] History and Physical Date of Admission: 04/21/23 [...] proceed with procedure. Richmond Valdez MD Pager: [facility] [address] [place] [address], [address] [place] [address] Office: I have examined the patient and the H&P has been reviewed. There are no clinicalchanges since date of exam. 04/21/23 0918 <Electronically signed by Richmond Valdez MD> Cosigner Signature (if applicable): CC: Dr. Richmond Valdez MD; Dr. Geoff Perez MD~ Signed [facility] Work Phone: History and physical note Author Carlos Barajas [facility] Note Date/Time April 06, 2025 6:49 pm [facility] Medical Records Department [address] [place] [address] H&P Exam - Hospitalist 04/06/25 1843 MR#: [id number] Acct: [id number] Name: CHRIS LARSEN Rep #:[id number] : 1955 70 From: Carlos morris MD PCP: Dr. Geoff Perez MD Status:ADM I NO Location: [facility] GV383-3 HPI - General General Date of Admission: 04/06/25 HPI Narrative CHRIS LARSEN, is a 70 F who presents to the hospital with increasing shortness of breath and chest pressure over the last couple of days. She says that normally her inhalers are able to resolve her asthma exacerbation but did not seem to work at this time. She denied any chest pain or lightheadedness. She has had increased shortness of breath with exertion and had extensive wheezing today on evaluation in the ER. Chest x-ray was negative for consolidation, she has no leukocytosis or fever. Initially when she came in she was requiring 2 L of oxygen via nasal cannula however after couple breathing treatments and a doseof steroids she is 93% on room air however she was hypoxic into the 80s with ambulation necessitating observation overnight. Initial troponin was 8, EKG is nonischemic and no significant medical history to have concerns for any cardiac etiology especially given the clinical findings. [facility] Medical History Wears glasses Cancer Post-menopausal Depression Non-smoker Asthma Home Medications ?Medication ?Instructions ?Recorded ?Last Taken ?Type budesonide-formoterol HFA 160 1 inhaler PO DAILY 08/07 Unknown History mcg-4.5 mcg/actuation aerosol inhaler (Symbicort) multivitamin with minerals-folic 1 tab PO DAILY Unknown History acid 200 mcg chewable tablet (Multivitamin Gummies) albuterol sulfate 90 mcg/actuation 2 puff inhalation Q 4H 04/06/25 Unknown History aerosol inhaler levothyroxine 50 mcg tablet 50 mcg PO DAILY 04/06/25 U nknown History oxybutynin chloride 5 mg tablet 5 mg PO BID 04/06/25 U nknown History venlafaxine 37.5 mg tablet 37.5 mg PO DAILY 04/06/25 U nknown History Allergy/AdvReac Type Severity Reaction Status Date / Time cat dander Allergy dyspnea Verified 04/06/25 14:46 Family History (Updated 04/06/25 @ 18:[address] Carlos Barajas MD) Other Cancer Surgical History Previous section Social History Smoking Status: Former smoker ROS Constitutional Constitutional: Denies chills, fatigue, fever(s) or malaise Eyes Eyes: Denies blurry vision ENT HEENT: Denies headache(s) or nasal discharge Cardiovascular Cardiovascular: Denies chest pain, dyspnea on exertion or syncope Respiratory/Chest Respiratory/Chest: Reports cough, shortness of breath at rest and shortness of breath with exertion Gastrointestinal Gastrointestinal: Denies constipation, diarrhea, nausea or vomiting Genitourinary Genitourinary: Denies dysuria Neurologic Neurologic: Denies focal weakness, numbness or tremor(s) Psychiatric Psychiatric: Denies anxiety or depression Vital Signs Vital Signs Vital Signs: 04/06/25 14:43 04/06/25 14:46 04/06/25 14:46 Temperature 97.8 F 97.8 F Temperature Source Temporal Oral Pulse Rate 105 H 105 H Respiratory Rate 30 H 30 H Respiratory Effort Respiratory Depth Respiratory Pattern Blood Pressure 147/87 H 147/87 H Blood Pressure Mean 107 107 Pulse Ox 83 96 96 Oxygen Delivery Method Room Air Nasal Cannula Nasal Cannula Oxygen Flow Rate (L/min) 4 4 04/06/25 15:04 04/06/25 15:18 04/06/25 15:23 Temperature Temperature Source Pulse Rate 111 H Respiratory Rate 22 H Respiratory Effort Short of Breath Labored Respiratory Depth Shallow Respiratory Pattern Tachypnea Tachypnea Blood Pressure Blood Pressure Mean Pulse Ox Oxygen Delivery Method Nasal Cannula Oxygen Flow Rate (L/min) 4 4 04/06/25 15:33 04/06/25 15:43 04/06/25 15:46 Temperature 98.3 F Temperature Source Oral Pulse Rate 115 H 105 H Respiratory Rate 22 H 22 H Respiratory Effort Respiratory Depth Respiratory Pattern Blood Pressure 151/109 H 148/87 H Blood Pressure Mean 123 107 Pulse Ox 96 97 94 Oxygen Delivery Method Nasal Cannula Nasal Cannula Nasal Cannula Oxygen Flow Rate (L/min) 3 2 2 04/06/25 17:00 04/06/25 18:00 04/06/25 18:14 Temperature 98.2 F Temperature Source Pulse Rate 97 99 100 Respiratory Rate 18 16 15 Respiratory Effort Respiratory Depth Respiratory Pattern Blood Pressure 140/86 H 150/85 H 160/75 H Blood Pressure Mean 104 106 103 Pulse Ox 94 97 93 Oxygen Delivery Method Room Air Oxygen Flow Rate (L/min) Weight Weight: 191 lb 2.252 oz Body Mass Index (BMI) 28.2 Physical Exam Narrative General: Alert, Oriented x3, Cooperative, No apparent distress HEENT: Atraumatic, PERRLA, EOMI, Normocephalic Oral: Moist Mucosa Neck: Supple, No JVD Lungs: Diminished, Normal air movement, No rhonchi, scattered wheeze, No rales Cardiovascular: Regular rate, Regular Rhythm, Normal S1, Normal S2, No murmurs Abdomen: Soft, Non Tender, Non-Distended, No Hepato-splenomegaly Extremities: No edema, Capillary Refill Less than 3 Seconds Skin: No rashes, No breakdown Musculoskeletal: No Tenderness to Palpation of Joints or Extremities Neurological: No focal neurological deficits, Motor Exam 5/5 strength throughout, Sensory exam intact to light touch and pain Psych/Mental Status: Normal Affect, Appropriate Results Lab / Micro Data 04/06/25 15:00 04/06/25 15:00 Labs: Laboratory Results - last 24 hr 04/06/25 15:00: WBC 7.8, RBC 5.30, Hgb 15.4 H, Hct 44.9, MCV 84.7, MCH 29.1, MCHC 34.3, RDW Std Deviation 41.7, RDW Coeff of Eboni 13.5, Plt Count 234, MPV 8.9, Immature Gran % (Auto) 0.400, Neut % (Auto) 57.8, Lymph % (Auto) 20.6, Leake% (Auto) 12.2 H, Eos % (Auto) 8.2 H, Baso % (Auto) 0.8, Absolute Neuts (auto) 4.5, Absolute Lymphs (auto) 1.60, Nucleated RBC % 0, Sodium 141, Potassium 3.9, Chloride 104, Carbon Dioxide 25.7, Anion Gap 11, BUN 8, Creatinine 0.68 L, EstimCreat Clear Calc 77.95, Est GFR (MDRD) Non-Af 94, BUN/Creatinine Ratio 11.7, Glucose 121 H, Calcium 9.4, Troponin T High Sens 8 Micro: Microbiology 04/06/25 15:19 Mucosa - Nose SARS-CoV-2, Influenza & RSV (PCR) - Final Imaging Radiology Impression Chest X-Ray 04/06/25 15:50 IMPRESSION: No Acute Findings. Reading Location: [facility] Assessment & Plan Assessment/Plan (1) Hypoxia: (2) Asthma exacerbation: PLAN: Plan 1. Acute hypoxic respiratory sufficiency secondary to an asthma exacerbation ? Continue with DuoNebs ? Continue with daily prednisone ? Will recommend incentive spirometry and Pep therapy on the inpatient side ? Will need an ambulatory pulse ox prior to discharge ? She is currently only requiring oxygen with ambulation 2. Hypothyroidism ? Stable ? Continue with Synthroid 3. Anxiety/depression ? Stable ? Continue with Effexor 4. Incontinence ? Continue with oxybutynin ? Stable DVT: Ambulation Charges/Coding Visit Charges Inpatient E&M: 14605 Init Hosp L2 04/06/25 1849 <Electronically signed by Carlos Barajas MD> Cosigner Signature (if applicable): CC: Dr. Carlos Barajas MD; Dr. Geoff Perez MD~ Signed [facility] Work Phone: Reason for referral (narrative)No reason for referral information available[facility]Bar[facility] Work Phone: Chief Complaint and Reason for [...] AND XRAY March 18, 2025 12:22 pm Chief Complaint Admit Date SOB, ELEVATED D-DIMER January 07, 2025 7 :53am LAB AND XRAY March 18, 2025 12:22 pm SOB April 06, 2025 6:36 pm Shortness of breath April 06, 2025 6:43 pm Reason for Visit Admit Date Asthma exacerbation April 06, 2025 6:36 pm Hypoxia April 06, 2025 6:36 pm Advance Directives Advance Directive Response Recorded Date/ Time Living Will No March 25, 2016 5 :00pm Power of Sales Representative Cash Registers No March 25, 2016 5:00pm Advance Directive Response Recorded Date/ Time Name of Medical Power of Sales Representative Cash Registers SPOUSE April 17, 2023 1:23pm Living Will Yes April 17, 2023 1:23pm Power of Sales Representative Cash Registers Yes April 17 1:23pm Advance Directive Response Recorded Date/ Time Living Will Yes April 17, 2023 1:23pm Power of Sales Representative Cash Registers Yes April 17 1:23pm Advance Directive Response Recorded Date/ Time Living Will Yes April 17, 2023 12:23pm Power of Sales Representative Cash Registers Yes April 17 12:23pm Advance Directive Response Recorded Date/ Time Do you have a Healthcare Power of Sales Representative Cash Registers? No April 06, 2025 3:04pm Summary Purpose Family History Relationship Condition Age at Onset Recorded Date/T tierra Not Specified Malignant neoplasm Unknown Additional Source Comments Goals (unrecognized section and [...] March 18, 2025 End: March 18, 2025 Team Status: Active Member Role Status Dates Dr. Geoff Perez MD Primary Care Provider Active Start: April 06, 2025 Dr. Shay Simpson DO Emergency Provider Active Start: April 06, 2025 Dr. Carlos Barajas MD Admit Provider Active Start: April 06, 2025 Dr. Carlos Barajas MD Attending Provider Active Start: April 06, 2025 Team Status: Active Member Role Status Dates Dr. Geoff Perez MD Primary Care Provider Active Start: April 06, 2025 Dr. Shay Simpson DO Emergency Provider Active Start: April 06, 2025 Dr. Carlos Barajas MD Admit Provider Active Start: April 06, 2025 Dr. Carlos Barajas MD Attending Provider Active Start: April 06, 2025 Dr. Carlos Barajas MD Other Provider Active Start: April 06, 2025 INFORMATION SOURCE (unrecogn ized section and content) DATE CREATED AUTHOR 03/21/2025 [facility] FOR RECORDS PERTAINING TO PATIENTS WHO ARE [...] BE BASED ON THE PRIMARY CLINICAL RECORDS. [employer] provides no warranty or guarantee of the accuracy or completeness of information in this document.
[2025-04-06 20:52] LABS: Troponin T High Sens 4 HR 7 ng/L (<=14)
[2025-04-06] MEDS: Oxybutynin 5 MG Tablet PO (22:44)
[2025-04-07 03:49] VITALS: BP 134/92; PULSE 90; RESP 15; TEMP 36.3; O2SAT 93
[2025-04-07 04:30] VITALS: RESP 16; O2SAT 94
[2025-04-07] MEDS: Levothyroxine 50 MCG Tablet PO (06:31)
--- NOTE | 2025-04-07 06:49 | NURSING ---
ambulated with patient this am on room air/pulse ox. resting pulse ox =94%. pt ambulated around half the department and dropped to 88-89% on room air.
[2025-04-07] MEDS: Ipratropium/Albuterol Sulfate 3 ML AMPUL.NEB INHALATION (07:03)
[2025-04-07 07:05] VITALS: PULSE 99; RESP 22
[2025-04-07 07:57] VITALS: BP 144/78; PULSE 89; RESP 18; TEMP 36.6; O2SAT 94
[2025-04-07] MEDS: predniSONE 20 MG Tablet 40 MG PO (08:00)
[2025-04-07] MEDS: Venlafaxine XR 37.5 MG Capsule PO (08:00)
[2025-04-07] MEDS: Oxybutynin 5 MG Tablet PO (08:00)
[2025-04-07 08:04] VITALS: O2SAT 91; O2SAT 94
[2025-04-07 08:05] VITALS: O2SAT 94
--- NOTE | 2025-04-07 08:09 | DCINST_ITS ---
Discharge Instructions Diet Discharge Diet: No restrictions DC O2, CPAP, BIPAP needs Home O2 Discharge instructions: No Dressing / Incision Discharge Activity: Return to Normal Activity Dressing / Incision Call your doctor if you observe: Fever of 101 or Higher, Shortness of breath, Dizziness, Fainting spells, Swelling in the ankles, Chest pain and Increased palpitations (irregular heartbeat) Follow Up Care Test Results: Test results from this visit will be discussed in further detail at your follow- up appointment, if applicable. Discharge Plan Admission Admit Date/Time: 04/06/25 18:40 Attending Provider: Carlos Barajas Primary Care Provider: Geoff Perez Chi Instructions Additional Instructions / Restrictions: Use your albuterol rescue inhaler every 4 hours while awake for the next 2-3 days to allow time for the steroids to work. Recommend 3-4 puff of the albuterol each time. Discharge Orders/Prescriptions Prescriptions: New prednisone 20 mg Tablet 40 mg PO BREAKFAST 7 Days Qty: 14 0RF Continued budesonide-formoterol [Symbicort] 1 INHALER inhaler 1 inhaler PO DAILY Patient Comments: multivit with min-folic acid [Multivitamin Gummies] 200 mcg Tablet,Chewable 1 tab PO DAILY albuterol sulfate 90 mcg/actuation HFA aerosol inhaler 2 puff inhalation Q4H levothyroxine 50 mcg tablet 50 mcg PO DAILY venlafaxine 37.5 mg tablet 37.5 mg PO DAILY oxybutynin chloride 5 mg tablet 5 mg PO BID Referrals / Follow Up: Geoff Perez Chi, MD [Primary Care Provider] - Within 1 Week Disposition Disposition (needs filled in before D/C Order can be placed): Home, Self Care
--- NOTE | 2025-04-07 09:06 | PCM.DC.SUM ---
Providers Date of Admission: 04/06/25 Primary Care Physician: Dr. Geoff Perez MD Reason For Visit: ASTHMA EXACERBATION Diagnosis Discharge Diagnosis (1) Hypoxia: Status: Acute Code(s): R09.02 - Hypoxemia (2) Asthma exacerbation: Status: Acute Code(s): J45.901 - Unspecified asthma with (acute) exacerbation Medications at Discharge Home Medications budesonide-formoterol HFA 160 mcg-4.5 mcg/actuation aerosol inhaler (Symbicort) 1 inhaler PO DAILY 08/07/15 multivitamin with minerals-folic acid 200 mcg chewable tablet (Multivitamin Gummies) 1 tab PO DAILY 04/17/23 albuterol sulfate 90 mcg/actuation aerosol inhaler 2 puff inhalation Q4H 04/06/25 levothyroxine 50 mcg tablet 50 mcg PO DAILY 04/06/25 oxybutynin chloride 5 mg tablet 5 mg PO BID 04/06/25 venlafaxine 37.5 mg tablet 37.5 mg PO DAILY 04/06/25 prednisone 20 mg tablet 40 mg (2 x 20 mg) PO BREAKFAST 7 days #14 tabs 04/07/25 Hospital Course Operations None Procedures None Summary of Care Provided Minutes Spent on Discharge: 32 Hospital Course: Per HPI: CHRIS LARSEN, is a 70 F who presents to the hospital with increasing shortness of breath and chest pressure over the last couple of days. She says that normally her inhalers are able to resolve her asthma exacerbation but did not seem to work at this time. She denied any chest pain or lightheadedness. She has had increased shortness of breath with exertion and had extensive wheezing today on evaluation in the ER. Chest x-ray was negative for consolidation, she has no leukocytosis or fever. Initially when she came in she was requiring 2 L of oxygen via nasal cannula however after couple breathing treatments and a dose of steroids she is 93% on room air however she was hypoxic into the 80s with ambulation necessitating observation overnight. Initial troponin was 8, EKG is nonischemic and no significant medical history to have concerns for any cardiac etiology especially given the clinical findings. Hospital Course: 1. Acute hypoxic respiratory sufficiency secondary to an asthma exacerbation?70-year-old female presented to the hospital for increasing shortness of breath over the last couple days. Initially she required 2 L of oxygen via nasal cannula but after breathing treatments and the steroid dose she was stable on room air at rest but still required oxygen with ambulation. This morning she had an ambulatory pulse ox that demonstrated 91% on room air with ambulation 94 to 95% at rest. I discussed with her the plan for discharge that she expressed understanding of the risk and benefit to going home and would like to go home today. Will plan for 7-day course of prednisone without a taper and I recommend that she use her home albuterol 3 to 4 puffs every 4-6 hours while awake of for the next 2 to 3 days until the steroids can take effect. Recommend following up with her PCP in 3 to 5 days. 2. Hypothyroidism, anxiety, depression, incontinence are all chronic medical problems that complicate her care. Her home medications were continued where appropriate Physical Exam Narrative General: Alert, Oriented x3, Cooperative, No apparent distress HEENT: Atraumatic, PERRLA, EOMI, Normocephalic Oral: Moist Mucosa Neck: Supple, No JVD Lungs: Diminished, Normal air movement, No rhonchi, no wheeze, No rales Cardiovascular: Regular rate, Regular Rhythm, Normal S1, Normal S2, No murmurs Abdomen: Soft, Non Tender, Non-Distended, No Hepato-splenomegaly Extremities: No edema, Capillary Refill Less than 3 Seconds Skin: No rashes, No breakdown Musculoskeletal: No Tenderness to Palpation of Joints or Extremities Neurological: No focal neurological deficits, Motor Exam 5/5 strength throughout, Sensory exam intact to light touch and pain Psych/Mental Status: Normal Affect, Appropriate Weight / BMI Weight Weight: 184 lb 8.43 oz Body Mass Index (BMI) 27.2 ABG / Lab / Microbiology Data 04/06/25 15:00 04/06/25 15:00 Laboratory: Laboratory Results - last 24 hr 04/06/25 15:00: WBC 7.8, RBC 5.30, Hgb 15.4 H, Hct 44.9, MCV 84.7, MCH 29.1, MCHC 34.3, RDW Std Deviation 41.7, RDW Coeff of Eboni 13.5, Plt Count 234, MPV 8.9, Immature Gran % (Auto) 0.400, Neut % (Auto) 57.8, Lymph % (Auto) 20.6, [place] % (Auto) 12.2 H, Eos % (Auto) 8.2 H, Baso % (Auto) 0.8, Absolute Neuts (auto) 4.5, Absolute Lymphs (auto) 1.60, Nucleated RBC % 0, Sodium 141, Potassium 3.9, Chloride 104, Carbon Dioxide 25.7, Anion Gap 11, BUN 8, Creatinine 0.68 L, Estim Creat Clear Calc 77.95, Est GFR (MDRD) Non-Af 94, BUN/Creatinine Ratio 11.7, Glucose 121 H, Calcium 9.4, Troponin T High Sens 8 04/06/25 18:44: Troponin T Hi Sens 2 Hr 7 04/06/25 20:26: Troponin T Hi Sens 4Hr 7 Microbiology: Microbiology 04/06/25 15:19 Mucosa - Nose SARS-CoV-2, Influenza & RSV (PCR) - Final Radiography Diagnostic Testing: Radiology Impression Chest X-Ray 04/06/25 15:50 IMPRESSION: No Acute Findings. Reading Location: [facility] D/C Instructions Discharge Diet: No restrictions Call your doctor if you observe: Fever of 101 or Higher, Shortness of breath, Dizziness, Fainting spells, Swelling in the ankles, Chest pain and Increased palpitations (irregular heartbeat) DC O2, CPAP, BIPAP Needs Home O2 Discharge instructions: No Meaningful Use Info Meaningful Use Meaningful Use Diagnoses (Choose all that apply): None applicable Ischemic Stroke Statin Dosing Therapy Reference: STATIN DOSE THERAPY REFERENCE: * Patients > 75 years receive moderate or high dose statin therapy. * Patients 75 years or YOUNGER should receive HIGH intensity statin dose unless contraindicated. You will be required to document reason for non-treatment if statin daily dose does not meet guidelines. HIGH DOSE STATIN THERAPY DAILY Atorvastatin > than or = to 40 mg Rosuvastatin > than or = to 20 mg Amlodipine + Atorvastatin > than or = to 2.5/40 mg Ezetimibe + Simvastatin 10/80 mg Simvastatin 80mg Discharge Plan Admission Admit Date/Time: 04/06/25 18:40 Attending Provider: Carlos Barajas Primary Care Provider: Geoff Perez Chi Instructions Additional Instructions / Restrictions: Use your albuterol rescue inhaler every 4 hours while awake for the next 2-3 days to allow time for the steroids to work. Recommend 3-4 puff of the albuterol each time. Discharge Orders/Prescriptions Prescriptions: New prednisone 20 mg Tablet 40 mg PO BREAKFAST 7 Days Qty: 14 0RF Continued budesonide-formoterol [Symbicort] 1 INHALER inhaler 1 inhaler PO DAILY Patient Comments: multivit with min-folic acid [Multivitamin Gummies] 200 mcg Tablet,Chewable 1 tab PO DAILY albuterol sulfate 90 mcg/actuation HFA aerosol inhaler 2 puff inhalation Q4H levothyroxine 50 mcg tablet 50 mcg PO DAILY venlafaxine 37.5 mg tablet 37.5 mg PO DAILY oxybutynin chloride 5 mg tablet 5 mg PO BID Referrals / Follow Up: Geoff Perez Chi, MD [Primary Care Provider] - Within 1 Week Disposition Disposition (needs filled in before D/C Order can be placed): Home, Self Care Charges/Coding Visit Charges Inpatient E&M: 95257 Disch Hosp >30min
--- NOTE | 2025-04-07 09:07 | CASEMGMT ---
Pt does not require home oxygen.
== END 2025-04-07 09:58 | disposition home or self-care (01) ==
LOC: ED 18:16 → MS3 18:42
PROVIDERS: Admitting Provider Family Medicine; Emergency Provider Emergency Medicine; PCP Family Medicine Geriatric Medicine; Visit Provider Family Medicine
DX: J45.901 Unspecified asthma with (acute) exacerbation (principal); E03.9 Hypothyroidism, unspecified; Z87.891 Personal history of nicotine dependence; F41.9 Anxiety disorder, unspecified; Z79.51 Long term (current) use of inhaled steroids; Z79.899 Other long term (current) drug therapy; Z79.890 Hormone replacement therapy; F32.A Depression, unspecified; R32 Unspecified urinary incontinence; R09.02 Hypoxemia
CPT/HCPCS: 71045; 80048; 84484; 85025; 87631; 93005; 94640; 94668; 96374; 99221; 99284; A4216; G0378

== ENCOUNTER → 2025-06-03 | Outpatient (CLI) | payer MEDICARE, SELFPAY ==
[2025-06-03 15:27] LABS: Hematocrit 45.6 % (37-47); Hemoglobin 15.6 g/dL (12.0-15.0); Immature Granulocytes Count 0.030 X10^3/uL (0.0-0.0); Mean Corp Hgb Conc 34.2 g/dL (32-36); Mean Corpuscular Volume 85.9 fL (81-99); Mean Platelet Vol. 9.0 fl (6.2-12.0); NRBC Flagged by Analyzer 0 % (0-5); Platelet Count 260 K/mm3 (150-450); RBC Distribution Width CV 13.4 % (11.6-14.6); RBC Distribution Width SD 42.4 fl (35.1-43.9); Red Blood Count 5.31 M/mm3 (4.2-5.4); White Blood Count 9.3 K/mm3 (4.4-11.0)
[2025-06-03 16:24] LABS: AST(SGOT) 27 U/L (<=31); Alanine Aminotransfer ALT/SGPT 19 U/L (<=34); Albumin, Serum 4.3 g/dL (3.4-4.8); Alkaline Phosphatase 75 U/L (35-104); Anion Gap 13 (5-15); BUN 8 mg/dL (4-19); BUN/Creat Ratio 11.4 RATIO (10-20); Calcium,Total 9.6 mg/dL (7.6-11.0); Carbon Dioxide 24.6 mmol/L (21.0-32.0); Chloride 103 mmol/L (98-108); Cholesterol 243 mg/dL (<=200); Globulin 2.6 g/dL (2.2-4.2); Glucose 93 mg/dL (70-99); Low Density Lipoprotein Calc. 133 mg/dL; Potassium 4.1 mmol/L (3.3-5.1); Triglycerides 172 mg/dL; Very Low Density Lipoprotein 34 mg/dL (5-40); cholesterol:hdl ratio screen 3.21
[2025-06-03 16:26] LABS: Vitamin D,25 Hydroxy 48.4 ng/mL (30-100)
== END | disposition home or self-care (01) ==
LOC: LAB 14:10
PROVIDERS: PCP Family Medicine Geriatric Medicine; Referring Provider Family Medicine Geriatric Medicine; Visit Provider Family Medicine Geriatric Medicine
DX: E78.5 Hyperlipidemia, unspecified (principal); R53.83 Other fatigue; E55.9 Vitamin D deficiency, unspecified
CPT/HCPCS: 36415; 80053; 80061; 82306; 84443; 85025

== ENCOUNTER 2025-06-06 10:47 | Emergency (ER) | payer MEDICARE, SELFPAY ==
[2025-06-06] VITALS (9 sets, daily range): BP systolic 120–190; BP diastolic 75–115; PULSE 101–115; RESP 18–28; TEMP 36.1–36.7; O2SAT 71–98; BMI 27.6
--- NOTE | 2025-06-06 10:59 | EKG12_ITS ---
Test Reason : SOB Blood Pressure : */* mmHG Vent. Rate : 107 BPM Atrial Rate : 107 BPM P-R Int : 130 ms QRS Dur : 96 ms QT Int : 370 ms P-R-T Axes : 70 89 61 degrees QTcB Int : 493 ms Sinus tachycardia QTcB >= 480 msec Abnormal ECG Confirmed by SALVATORE GRAY, MYKEL ([id number]), editor department ROSA MARIA GARCIA ([id number]) on 06/09/2025 9:16:25 AM Referred By: Confirmed By: MYKEL CHASE MD
[2025-06-06] MEDS: Albuterol 2.5 MG/3 ML VIAL.NEB. INHALATION ×3 (11:05→11:09)
[2025-06-06 11:22] LABS: Hematocrit 46.0 % (37-47); Hemoglobin 15.3 g/dL (12.0-15.0); Immature Granulocytes Count 0.050 X10^3/uL (0.0-0.0); Mean Corp Hgb Conc 33.3 g/dL (32-36); Mean Corpuscular Volume 86.8 fL (81-99); Mean Platelet Vol. 9.8 fl (6.2-12.0); NRBC Flagged by Analyzer 0 % (0-5); Platelet Count 242 K/mm3 (150-450); RBC Distribution Width CV 13.2 % (11.6-14.6); RBC Distribution Width SD 41.6 fl (35.1-43.9); Red Blood Count 5.30 M/mm3 (4.2-5.4); White Blood Count 11.3 K/mm3 (4.4-11.0)
--- NOTE | 2025-06-06 11:22 | RAD_ITS ---
PROCEDURE: CHEST 1 VIEW (PORTABLE) 06/06/2025 REASON FOR EXAM: RESPIRATORY FAILURE, RESPIRATORY DISTRESS TECHNIQUE: Frontal view of the chest. COMPARISON: April 06, 2025, March 18, 2025 FINDINGS: Hardware: EKG leads Heart: Normal Lungs: The lungs are clear. Bones: Degenerative changes are identified within the thoracic spine. RAD/Chest 1 View (Portable) IMPRESSION: No acute abnormality Reading Location: [id number]
[2025-06-06 11:25] LABS: Allen Test Positive; Base Excess 0 mmol/L (-2 to +2); FI02 6.0; PO2 121 mmHG (75-100); SITE R Radial; SO2 98 % (95-99)
[2025-06-06 11:56] LABS: AST(SGOT) 28 U/L (<=31); Alanine Aminotransfer ALT/SGPT 18 U/L (<=34); Albumin, Serum 4.3 g/dL (3.4-4.8); Alkaline Phosphatase 73 U/L (35-104); Anion Gap 12 (5-15); BUN 8 mg/dL (4-19); BUN/Creat Ratio 11.9 RATIO (10-20); Calcium,Total 9.4 mg/dL (7.6-11.0); Carbon Dioxide 21.8 mmol/L (21.0-32.0); Chloride 106 mmol/L (98-108); Estimated Creatinine Clearance 77.16 ml/min (50-250); Globulin 2.5 g/dL (2.2-4.2); Glucose 145 mg/dL (70-99); Potassium 4.2 mmol/L (3.3-5.1)
--- NOTE | 2025-06-06 13:27 | ED.VIS.DYS ---
HPI History of Present Illness Chief Complaint: Shortness of Breath Detail of Chief Complaint: Onset 3 days ago Informant: patient and spouse/S.O. Onset/Context/Timing Onset: Days (Exacerbation of asthma starting 2 to 3 days ago worse this morning) Context: gradual (Abruptly got worse this morning) Timing: Continuous Quality: Positive for Dyspnea on exertion and Wheezing; Negative for Orthopnea or PND Current Severity: Severe Maximum Severity: Severe Worsened by: Nothing Relieved by: Nothing Associated Symptoms cough and rhinorrhea; Negative for post nasal drip, ear pain, fever, sore throat, subjective, chills or sweats Chest Pain: Positive for None Narrative Narrative: Patient is a 70-year-old woman. She has history of asthma, hypothyroidism who was seen earlier this year for acute exacerbation of asthma. She had mild upper respiratory symptoms with wheezing that started 2 to 3 days ago. Abruptly got worse today. She arrived with a pulse ox of 71%. She was diaphoretic obvious Rester distress able to speak in 1-2 word sentences. Most of her questions were derived that she could nod yes or no. When I entered the room she was receiving the treatment. She was on 6 L with a 91% saturation. Patient denies fever, chills night sweats. Patient does report mild congestion and hoarse voice. She denies sore throat. Her cough is nonproductive. She denies orthopnea or PND. She denies pedal edema. She has no history of congestive heart failure. She has no history of VTE. She has no risk factors for VTE. She denies leg pain, swelling or discoloration. She denies history of peptic ulcer disease and denies black or maroon-colored stool. PE Risk Factors: Negative for Cancer, OCP + Smoking + > 35, Prior DVT or PE, Recent immobilization, Recent surgery or Recent travel Prior similar symptoms: Yes Recent Illness/Hospitalization: No PFSH PFSH Medical History Wears glasses Cancer Post-menopausal Depression Non-smoker Asthma Home Medications ?Medication ?Instructions ?Recorded ?Last Taken ?Type budesonide-formoterol HFA 160 1 inhaler PO DAILY 08/07/15 Unknown History mcg-4.5 mcg/actuation aerosol inhaler (Symbicort) multivitamin with minerals-folic 1 tab PO DAILY 04/17/23 Unknown History acid 200 mcg chewable tablet (Multivitamin Gummies) albuterol sulfate 90 mcg/actuation 2 puff inhalation Q4H 04/06/25 Unknown History aerosol inhaler levothyroxine 50 mcg tablet 50 mcg PO DAILY 04/06/25 Unknown History oxybutynin chloride 5 mg tablet 5 mg PO BID 04/06/25 Unknown History venlafaxine 37.5 mg tablet 37.5 mg PO DAILY 04/06/25 Unknown History inhalational spacing device (Space #1 ea 06/06/25 Unknown Rx Chamber) prednisone 20 mg tablet 60 mg (3 x 20 mg) PO DAILY #15 06/06/25 Unknown Rx TABLETS Allergy/AdvReac Type Severity Reaction Status Date / Time cat dander Allergy dyspnea Verified 06/06/25 10:51 Family History Other Cancer Surgical History Previous section Social History Smoking Status: Former smoker ROS ROS ED Constitutional Constitutional ED: Denies chills, fever(s), sweats or weight loss Eyes Eyes: Denies blurry vision or change in vision ENT ENT ED: Denies ear pain, rhinorrhea or sore throat Cardiovascular Cardiovascular: Reports palpitations and racing heartbeat; Denies chest pain, orthopnea or paroxysmal nocturnal dyspnea Respiratory/Chest Respiratory/Chest: Reports cough, dyspnea and dyspnea on exertion; Denies orthopnea, paroxysmal nocturnal dyspnea or sputum Gastrointestinal Gastrointestinal: Denies abdominal pain, nausea or vomiting Genitourinary Genitourinary ED: Denies dysuria, hematuria or urinary frequency Musculoskeletal Musculoskeletal: Denies arthralgias or myalgias Integumentary Denies rash Neurologic Neurologic: Denies headache(s), paresthesias or weakness Endocrine Endocrinology: Denies cold intolerance or heat intolerance Hematologic/Lymphatic Hematologic/Lymphatic: Denies easy bleeding or easy bruising EXAM Physical Exam Const Vital Signs: 06/06/25 10:48 06/06/25 10:48 06/06/25 11:11 Temperature 97 F L Temperature Source Temporal Pulse Rate 106 H 107 H Respiratory Rate 28 H 24 H Respiratory Effort Short of Breath Labored Accessory Muscle Use Respiratory Depth Shallow Respiratory Pattern Tachypnea Blood Pressure 190/115 H Blood Pressure Mean 140 Pulse Ox 71 Oxygen Delivery Method Room Air Room Air 06/06/25 11:18 06/06/25 12:00 06/06/25 12:30 Temperature Temperature Source Pulse Rate 115 H 108 H 102 H Respiratory Rate 25 H 19 H 18 Respiratory Effort Respiratory Depth Respiratory Pattern Blood Pressure 137/93 H 120/79 125/76 H Blood Pressure Mean 107 92 92 Pulse Ox 98 91 91 Oxygen Delivery Method Room Air 06/06/25 13:00 Temperature Temperature Source Pulse Rate 104 H Respiratory Rate 24 H Respiratory Effort Respiratory Depth Respiratory Pattern Blood Pressure 138/75 H Blood Pressure Mean 96 Pulse Ox 94 Oxygen Delivery Method Room Air Positive well nourished and well developed Constitutional Narrative: Patient is diaphoretic respiratory distress use of accessory muscles retractions speaking in 1-2 word sentences General Appearance ED: well developed; Negative for NAD HEENT atraumatic and trauma Eyes PERRL and EOMs intact bilaterally General Eye ED: Negative for pale conjunctiva or scleral icterus Neck no lymphadenopathy, supple, no meningeal signs and no JVD Resp No normal respiratory effort and No clear to auscultation bilaterally Auscultation: wheezes expiratory wheezes and throughout and diminished lung sounds diffuse Cardio regular rhythm, S1 normal heart sound, S2 normal heart sound and no murmurs Rate: tachycardic GI non-tender, non-distended and no masses Back/Spine no CVA tenderness Extremity normal to inspection Extremity Narrative: There is no asymmetry, swelling, discoloration, leg vein distention, palpable cords or tenderness along the distribution of the deep venous system. Neuro oriented x3 and CN's II-XII intact bilaterally Sensorium / Orientation: alert Psych Mood & Affect: anxious Thought Process: normal thought process Skin no wounds and skin turgor normal Skin Narrative: Diaphoretic. Patient was not cyanotic so she was on oxygen. I was told she was cyanotic. MDM MDM MDM Narrative Medical decision making narrative: Acute exacerbation asthma. Patient has no infectious symptoms other than slight cough. She has no history of PE DVT and there is no clinical evidence of DVT. Since this started 2 to 3 days ago Forei got worse not consistent with PE. Need to consider congestive heart failure, pneumothorax, pneumonia. Will obtain chest x-ray appropriate blood work to assess for anemia, poor perfusion/endorgan dysfunction. History & Record Review Discussion w/independent historian: EMS personnel, Patient and Significant other Additional record(s) reviewed:: Prior ED visit Lab Data Attestation: I reviewed the patient's lab results. Lab results narrative: White count is slightly elevated 11.3 with no shift. Lactate is normal. Comprehensive metabolic panel is remarkable for glucose of 145 otherwise unremarkable. Labs: Laboratory Results - last 24 hr 06/06/25 06/06/25 10:52 11:27 WBC 11.3 H RBC 5.30 Hgb 15.3 H Hct 46.0 MCV 86.8 MCH 28.9 MCHC 33.3 RDW Std Deviation 41.6 RDW Coeff of Eboni 13.2 Plt Count 242 MPV 9.8 Immature Gran % (Auto) 0.400 Neut % (Auto) 61.4 Lymph % (Auto) 24.5 [place] % (Auto) 7.6 Eos % (Auto) 5.4 H Baso % (Auto) 0.7 Absolute Neuts (auto) 6.9 Absolute Lymphs (auto) 2.76 Nucleated RBC % 0 Sodium 140 Potassium 4.2 Chloride 106 Carbon Dioxide 21.8 Anion Gap 12 BUN 8 Creatinine 0.68 L Estim Creat Clear Calc 77.16 Est GFR (MDRD) Non-Af 94 BUN/Creatinine Ratio 11.9 Glucose 145 H Lactic Acid 1.2 Calcium 9.4 Total Bilirubin 0.48 AST 28 ALT 18 Alkaline Phosphatase 73 Total Protein 6.7 Albumin 4.3 Globulin 2.5 Albumin/Globulin Ratio 1.7 ABG Data Attestation: I personally reviewed and interpreted this ABG as follows: Interpretation: ABG reveals a mild acidosis with a PCO2 of 49, PO2 of 121 on 6 L. This is a respiratory acidosis. ABG results: ABG 06/06/25 11:20 Specimen Type ART Sample Site R Radial pH 7.33 L Bicarbonate Actual 25.6 Total CO2 27 Base Excess 0 O2 Saturation 98 O2 % 6.0 ABG pCO2 49.0 H ABG pO2 121 H Josh Test Positive O2 Delivery Device AeroMask Vent Mode Not entered Radiography Chest X-Ray - ED: 1 View and Read by ED Physician (Single view portable chest x-ray reveals no infiltrate, pneumothorax or cephalization/CHF. Cardiac size and silhouette is normal. Osseous structures with no acute process.) Diagnostic Testing: Clinical Impression(s) from Imaging Studies Chest X-Ray 06/06/25 11:22 IMPRESSION: No acute abnormality Reading Location: [facility] EKG Initial EKG: Attestation: I personally reviewed and interpreted this EKG as follows: Interpretation: Sinus Tachycardia (Rate is 107. [place] interval is 130 ms. QRS duration 96 ms. QT duration under 70 ms. [place] is normal. The QTc is prolonged, however at 493 ms.) Treatment and Re-Evaluation :: Patient was reassessed more than 1 time. She still has slight wheezing. Pulse ox is 90 to 92% at rest. She was ambulated and her pulse ox went up to 94%. Patient feels comfortable going home. She was instructed to take prednisone until gone spacer was prescribed. She is to follow-up with Dr. Livan Velasquez. Critical Care Time Critical Care Time: Yes Critical care time (excluding procedures): 30-74 minutes (31), Including time spent: (History, physical, documentation, review of prior records,), Discussing w/Patient &/or Family/Window Treatment Installer and Performing Direct Patient Care at Bedside Discharge Plan Triage Chief Complaint: Shortness of Breath ED Provider: Anurag Corrales Dx/Rx/DC Orders Clinical Impression: Acute asthma exacerbation, Acute respiratory distress, Sinus tachycardia, Acute respiratory failure with hypoxia and hypercapnia Instructions: ED Asthma, Acute (Adult) Prescriptions: New prednisone 20 mg tablet 60 mg PO DAILY Qty: 15 0RF (DME) Space Chamber Spacer See Rx Instructions .Route Qty: 1 0RF Rx Instructions: As directed No Action budesonide-formoterol [Symbicort] 1 INHALER inhaler 1 inhaler PO DAILY Patient Comments: multivit with min-folic acid [Multivitamin Gummies] 200 mcg Tablet,Chewable 1 tab PO DAILY albuterol sulfate 90 mcg/actuation HFA aerosol inhaler 2 puff inhalation Q4H levothyroxine 50 mcg tablet 50 mcg PO DAILY venlafaxine 37.5 mg tablet 37.5 mg PO DAILY oxybutynin chloride 5 mg tablet 5 mg PO BID Primary Care Provider: Geoff Perez Chi Referrals: Livan Velasquez MD [Med Staff - Active Staff] - 3-5 Days Geoff Perez Chi, MD [Primary Care Provider] - Activity Restrictions/Additional Instructions: 4 to 6 puffs of your metered-dose inhaler with the spacer was equivalent to a nebulizer treatment. Would recommend carrying this with you at all times. Take prednisone until gone. If you develop shortness of breath and did not have your nebulizer available do 4 to 6 puffs and additional 4 to 6 puffs and 15 minutes. If you are no better at that time return to the emergency department Print Language: Wolof Disposition Disposition: Home, Self Care
== END 2025-06-06 14:00 | disposition home or self-care (01) ==
PROVIDERS: Emergency Provider Emergency Medicine; PCP Family Medicine Geriatric Medicine; Visit Provider Emergency Medicine
DX: J96.01 Acute respiratory failure with hypoxia (principal); J96.02 Acute respiratory failure with hypercapnia; J45.901 Unspecified asthma with (acute) exacerbation; R00.0 Tachycardia, unspecified; Z87.891 Personal history of nicotine dependence
CPT/HCPCS: 36600; 71045; 80053; 82803; 83605; 85025; 93005; 94640; 96374; 99283; A4216

== ENCOUNTER → 2025-06-27 | Outpatient (CLI) | payer MEDICARE, SELFPAY ==
[2025-07-02 10:08] LABS: Immunoglobulin A 183 mg/dL (87-352); Immunoglobulin G 600 mg/dL (586-1602); Immunoglobulin M 78 mg/dL (26-217)
== END | disposition home or self-care (01) ==
LOC: LABSPEC 12:05 → LAB 12:16
PROVIDERS: PCP Family Medicine Geriatric Medicine; Referring Provider Internal Medicine Pulmonary Disease; Visit Provider Internal Medicine Pulmonary Disease
DX: J45.50 Severe persistent asthma, uncomplicated (principal); Z87.01 Personal history of pneumonia (recurrent)
CPT/HCPCS: 36415; 82784; 82785; 87070; 87205

== ENCOUNTER → 2025-07-28 | Outpatient (CLI) | payer MEDICARE, SELFPAY ==
[2025-07-28 15:45] LABS: Hematocrit 43.2 % (37-47); Hemoglobin 15.1 g/dL (12.0-15.0); Immature Granulocytes Count 0.100 X10^3/uL (0.0-0.0); Mean Corp Hgb Conc 35.0 g/dL (32-36); Mean Corpuscular Volume 83.2 fL (81-99); Mean Platelet Vol. 8.7 fl (6.2-12.0); NRBC Flagged by Analyzer 0 % (0-5); Platelet Count 279 K/mm3 (150-450); RBC Distribution Width CV 13.2 % (11.6-14.6); RBC Distribution Width SD 40.0 fl (35.1-43.9); Red Blood Count 5.19 M/mm3 (4.2-5.4); White Blood Count 7.5 K/mm3 (4.4-11.0)
== END | disposition home or self-care (01) ==
LOC: LAB 15:08
PROVIDERS: PCP Family Medicine Geriatric Medicine; Referring Provider Internal Medicine Pulmonary Disease; Visit Provider Internal Medicine Pulmonary Disease
DX: J45.50 Severe persistent asthma, uncomplicated (principal)
CPT/HCPCS: 36415; 85025

== ENCOUNTER → 2025-09-03 | Outpatient (CLI) | payer MEDICARE, SELFPAY ==
--- OUTSIDE RECORDS SUMMARY | 2025-09-03 19:29 | XMS RPT_ITS | CCD ---
Author Organization [facility] CliniSypr Care Team Providers Care Cook Frozen Dessert Name Role Phone Dr. Geoff Perez Chi Primary Care Provider [phone] Livan Gramajo Attending Provider Dr. Shay Roland Referring Provider Dr. Geoff Perez Chi Primary Care Provider Chris, Dr. Geoff Gill Referring Provider Dr. Richmond Valdez Attending Provider [phone] Dr. Richmond Valdez Other Provider Chris GRAY, Dr. Geoff Gill Primary Care Provider Chris GRAY, Dr. Geoff Gill Attending Provider Chris GRAY, Dr. Geoff Gill Referring Provider Chris GRAY, Dr. Geoff Gill Primary Care Provider Chris GRAY, Dr. Geoff Gill Attending Provider Chris GRAY, Dr. Geoff Gill Primary Care Provider Chris GRAY, Dr. Geoff Gill Attending Provider Chris GRAY, Dr. Geoff Gill Referring Provider Dr. Shay Simpson DO Emergency Provider Jenn GRAY, Dr. Carlos Live Admit Provider Jenn GRAY, Dr. Carlos Live Attending Provider Jenn GRAY, Dr. Carlos Live Other Provider Dr. Shay Simpson DO Emergency Provider Jenn GARY, Dr. Carlos Live Admit Provider Jenn GRAY, Dr. Carlos Live Attending Provider Chris GRAY, Dr. Geoff Gill Primary Care Provider [phone] Chris GRAY, Dr. Geoff Gill Attending Provider Chris GRAY, Dr. Geoff Gill Referring Provider Antoni GRAY, Dr. Osborn Emergency Provider Ron GRAY, Dr. Livan Farah Other Provider Chris GRAY, Dr. Geoff Gill Primary Care Provider Chris GRAY, Dr. Geoff Gill Attending Provider Chris GRAY, Dr. Geoff Gill Referring Provider Antoni GRAY, Dr. Osborn Attending Provider Ron GRAY, Dr. Livan Farah Attending Provider Ron GRAY, Dr. Livan Farah Referring Provider [phone] Chris, Geoff Chi Attending Unavailable Chris, Geoff Chi Primary Care Unavailable Chris, Geoff Chi Referring Unavailable Carlos Barajas Attending Unavailable Carlos Barajas Consulting Unavailable Carlos Barajas Admitting Unavailable Chris, Geoff Chi Primary Care Unavailable Carlos Barajas Admitting Unavailable Carlos Barajas Attending Unavailable Carlos Barajas Consulting Unavailable Chris, Geoff Chi Primary Care Unavailable Chris, Geoff Chi Attending Unavailable Chris, Geoff Chi Referring Unavailable Chris, Geoff Chi Primary Care Unavailable Chris, Geoff Chi Attending Unavailable Chris, Geoff Chi Referring Unavailable Chris, Geoff Chi Primary Care Unavailable Livan Velasquez V Referring Unavailable Livan Velasquez V Attending Unavailable Chris, Geoff Chi Primary Care Unavailable Chris, Geoff Chi Primary Care Unavailable Chris, Geoff Chi Attending Unavailable Carlos Barajas Attending Unavailable Carlos Barajas Admitting Unavailable Chris, Geoff Chi Primary Care Unavailable Chris, Geoff Chi Attending Unavailable Chris, Geoff Chi Primary Care Unavailable Chris, Geoff Chi Referring Unavailable Livan Velasquez V Referring Unavailable Livan Velasquez V Attending Unavailable Chris, Geoff Chi Primary Care [...] Unavailable Chris, Geoff Chi Primary Care Unavailable Anurag Corrales Attending Unavailable Livan Velasquez V Consulting Unavailable Chris, Geoff Chi Primary Care Unavailable Chris GRAY, Dr. Geoff Gill Primary Care Physician Chris GRAY, Dr. Geoff Gill Attending Physician Chris GRAY, Dr. Geoff Gill Referring Provider Antoni GRAY, Dr. Osborn Attending Physician Antoni GRAY, Dr. Osborn Emergency Department Physician Ron GRAY, Dr. Livan Farah Nurse Practitioner Ron GRAY, Dr. Livan Farah Attending Physician [phone] Allergies Allergy Classification Reported Allergen(s) Allergy Type Date of Onset Reaction(s) Facility (1 source) cat dander Drug allergy (disorder) 06-06-2025 [facility] Repository Medications Current Medications Medication Drug Class(es) Dates Sig (Normalized) Sig (Original) [id number] 200 actuat albuterol 0.09 mg/actuat metered dose inhaler (6 sources) beta2-Adrenergic Agonist Start: 04-06-2025 Budesonide-Formotero l (20 sources) Corticosteroid, beta2-Adrenergic Agonist Start: 08-07-2015 Start: 08-07-2015 Budesonide-For moterol (Symbicort) 1 INHALER inhaler Active 1 INHALER PO DAILY August 06, 2015 11:00pm Start: 08-07-2015 Budesonide-For moterol (Symbicort) 1 INHALER inhaler Active 1 INHALER PO DAILY August 07, 2015 12:00am Start: 08-07-2015 Budesonide-For moterol (Symbicort) 1 INHALER inhaler Active 1 INHALER PO DAILY August 07, 2015 12:00am Inhalational Spacing Device (Space Chamber) spacer (4 sources) Start: 06-06-2025 Inhalational S pacing Device (Space Chamber) spacer Active 0 .Route 1 0 June 06, 2025 12:00am As directed levothyroxine sodium 0.05 mg oral tablet (6 sources) l-Thyroxi ne Start: 04-06-2025 take 1 tablet by mouth once daily Multivit With Min-Folic Acid (Multivitamin Gummies) 200 mcg Tablet,Chewable (18 sources) Start: 04-17-2023 take 1 tablet by mouth once daily Start: 04-17-2023 take 1 tablet by christopher [...] 12:00am oxybutynin chloride 5 mg oral tablet (6 sources) Cholinergic Muscarinic Antagonist Start: 04-06-2025 take 1 tablet by mouth twice daily predniSONE 20 mg oral tablet (9 sources) Start: 06-06-2025 take 3 tablets by mouth once daily Start: 04-07-2025 End: 06-06-2025 take 2 tablets by mouth at breakfast Prednisone 20 mg Tablet Discontinued 40 mg PO WITH BREAKFAST 14 7 0 April 07, 2025 12:00am June 06, 2025 11:12am venlafaxine 37.5 mg oral tablet (20 sources) Serotonin and Norepinephrine Reuptake Inhibitor Start: 04-06-2025 take 1 tablet by mouth once daily Start: 08-07-2015 End: 04-06-2025 take 1 capsule by mouth once daily Venlafaxine 75 MG capsule,extended release 24hr Discontinued 75 mg PO DAILY August 07, 2015 12:00am April 06, 2025 3:07pm Completed/Discontinued Medications Medication Drug Class(es) Dates Sig (Normalized) Sig (Original) acetaminophen 325 mg / oxyCODONE hydrochloride 5 mg oral tablet (20 sources) Opioid Agonist Start: 03-25-2016 End: 03-09-2023 [...] 2023 8:09am ibuprofen 800 mg oral tablet (20 sources) Nonsteroidal Anti-inflammatory Drug Start: 03-25-2016 End: 03-09-2023 take 1 tablet by mouth three times daily as needed for pain Ibuprofen (Motrin) 800 MG tablet Discontinued 800 mg PO 3 TIMES DAILY NEEDED as needed for Pain March 25, 2016 5:36pm March 09, 2023 9:09am Problems Active Problems Problem Classification Problem Date Documented Da te Episodic/Chronic Asthma (17 sources) Exacerbation of asthma; Translations: [Unspecified asthma with (acute) exacerbation] Onset: 04-07-2025 04-06-2025 Chronic Cardiac dysrhythmias (4 sources) Sinus tachycardia; Translations: [Tachycardia, unspecified] 06-06-2025 Episodic Disorders of lipid metabolism (1 source) Hyperlipidemia, unspecified; Translations: [Hyperlipidemia, unspecified] Onset: 06-10-2025 Chronic Other gastrointestinal disorders (18 sources) Stool DNA-based colorectal cancer screening positive; Translations: [Other fecal abnormalities] 03-09-2023 Episodic Other gastrointestinal disorders (2 sources) Other fecal abnormalities; Translations: [Abnormal feces] 03-09-2023 Episodic Other lower respiratory disease (11 sources) Hypoxia; Translations: [Hypoxemia] 04-06-2025 Episodic Other lower respiratory disease (4 sources) Acute respiratory distress; Translations: [Acute respiratory distress] 06-06-2025 Episodic Other lower respiratory disease (1 source) Shortness of breath; Translations: [Shortness of breath] Onset: 06-11-2025 Episodic Respiratory failure; insufficiency; arrest (adult) (4 sources) Acute hypoxemic and hypercapnic respiratory failure; Translations: [Acute respiratory failure with hypoxia] 06-06-2025 Episodic Thyroid disorders (1 source) Hypothyroidism, unspecified; Translations: [Hypothyroidism, unspecified] Onset: 11-06-2024 Chronic Past or Other Problems Problem Classification Problem Date Documented Da te Episodic/Chronic Malaise and fatigue (1 source) Other fatigue; Translations: [Other fatigue] Onset: 12-17-2024 Episodic Other lower respiratory disease (1 source) Hypoxemia; Translations: [Hypoxemia] Onset: 04-07-2025 Episodic Other lower respiratory disease (2 sources) Other specified respiratory disorders; Translations: [Other specified respiratory disorders] Onset: 01-29-2025 Episodic Residual codes; unclassified (1 source) Chills (without fever); Translations: [Chills (without fever)] Onset: 01-31-2025 Episodic Results Test Name Value Interpretation Reference Range Facility Absolute lymphocyte countOrd ered By: Livan Shandaarturo on 07-28-2025 Lymphocytes Auto (Unsp spec) [#/Vol] 1.52 10*3/uL 0.83-4.51 [facility] Absolute neutrophil countOrd ered By: Livan Shandaarturo on 07-28-2025 Neutrophils (Bld) [#/Vol] 4.6 10*3/uL 2.0-7.7 [facility] Automated lymphocyte count a s percentage of total leukocytesOrdered By: Livan Shandaarturo on 07-28-2025 Lymphocytes/100 WBC Auto (Unsp spec) 20.2 % 19-41 [facility] Basophil percentageOrdered B y: Livan Shandaarturo on 07-28-2025 Basophils/100 WBC (Bld) 0.5 % 0-1 [facility] CBC W/Diff, Automatedon Absolute Lymph 1.52 X10 3/uL Normal 0.83-4.51 [facility] Comment on above: Performed By: #### L 100.0100 #### [facility] [place], [place], [id number] Absolute Neut 4.6 X10 3/uL Normal 2.0-7.7 [facility] Comment on above: Performed By: #### L 100.0100 #### [facility] [address] [place], [address] Basophils/100 WBC (Bld) 0.5 % Normal 0-1 [facility] Comment on above: Performed By: #### L 100.0100 #### [facility] [address] [place], [address] Eosinophils/100 WBC (Bld) 4.6 % Normal 0-5 [facility] Comment on above: Performed By: #### L 100.0100 #### [facility] [address] [place], [address] Erythrocyte distribution width (RBC) [Ratio] 13.2 % Normal 11.6-14.6 [facility] Comment on above: Performed By: #### L 100.0100 #### [facility] [address] [place], [address] Hematocrit (Bld) [Volume fraction] 43.2 % Normal 37-47 [facility] Comment on above: Performed By: #### L 100.0100 #### [facility] [address] [place], [address] Hemoglobin (Bld) [Mass/Vol] 15.1 g/dL High 12.0-15.0 [facility] Comment on above: Performed By: #### L 100.0100 #### [facility] [address] [place], [address] IG% 1.300 High 0.0-0.9 [facility] Comment on above: Result Comment: IG% - Immature Granulocytes (promyelocytes, myelocytes and metamyelocytes) > 1% indicates that a LEFT SHIFT is Present. Performed By: #### L 100.0100 #### [facility] [address] [place], [address] Lymphocytes/100 WBC (Bld) 20.2 % Normal 19-41 [facility] Comment on above: Performed By: #### L 100.0100 #### [facility] [address] [place], [address] MCH (RBC) [Entitic mass] 29.1 pg Normal 27.0-32.0 [facility] Comment on above: Performed By: #### L 100.0100 #### [facility] [address] [place], [address] MCHC (RBC) [Mass/Vol] 35.0 g/dL Normal 32-36 [facility] Comment on above: Performed By: #### L 100.0100 #### [facility] [address] [place], [address] MCV (RBC) [Entitic vol] 83.2 fL Normal 81-99 [facility] Comment on above: Performed By: #### L 100.0100 #### [facility] [address] [place], [address] Monocytes/100 WBC (Bld) 12.0 % High 0-10 [facility] Comment on above: Performed By: #### L 100.0100 #### [facility] [address] [place], [address] Neutrophils/100 WBC (Bld) 61.4 % Normal 47-70 [facility] Comment on above: Performed By: #### L 100.0100 #### [facility] [address] [place], [address] Nucleated RBC (Bld) [#/Vol] 0 10*3/uL Normal 0-5 [facility] Comment on above: Performed By: #### L 100.0100 #### [facility] [address] [place], [address] Platelet mean volume (Bld) [Entitic vol] 8.7 fL Normal 6.2-12.0 [facility] Comment on above: Performed By: #### L 100.0100 #### [facility] [address] [place], [address] Platelets (Bld) [#/Vol] 279 10*3/uL Normal 150-450 [facility] Comment on above: Performed By: #### L 100.0100 #### [facility] [address] [place], [address] RBC (Bld) [#/Vol] 5.19 10*6/uL Normal 4.2-5.4 [facility] Comment on above: Performed By: #### L 100.0100 #### [facility] [address] [place], [address] RDW SD 40.0 fl Normal 35.1-43.9 [facility] Comment on above: Performed By: #### L 100.0100 #### [facility] [address] [place], [address] WBC (Bld) [#/Vol] 7.5 10*3/uL Normal 4.4-11.0 [facility] Comment on above: Performed By: #### L 100.0100 #### [facility] [address] [place], [address] Eosinophil percentageOrdered By: Livan Velasquez on 07-28-2025 Eosinophils/100 WBC (Bld) 4.6 % 0-5 [facility] Erythrocyte distribution wid th ratioOrdered By: Livan Velasquez on 07-28-2025 Erythrocyte distribution width (RBC) [Ratio] 13.2 % 11.6-14.6 [facility] Erythrocyte distribution wid th standard deviationOrdered By: Livan Velasquez on 07-28-2025 Erythrocyte distribution width (RBC) [Ratio] 40.0 fl 35.1-43.9 [facility] Hematocrit Auto (Bld) [Volum e fraction]Ordered By: Livan Velasquez on 07-28-2025 Hematocrit (Bld) [Volume fraction] 43.2 % 37-47 [facility] Hemoglobin measurementOrdere d By: Livan Velasquez on 07-28-2025 Hemoglobin (Bld) [Mass/Vol] 15.1 g/dL High 12.0-15.0 [facility] Immature granulocytes/100 WB C Auto (Bld)Ordered By: Livan Velasquez on 07-28-2025 Immature granulocytes/100 WBC (Bld) 1.300 % High 0.0-0.9 [facility] Comment on above: IG% - Immature Granu locytes (promyelocytes, myelocytes and metamyelocytes) > 1% indicates that a LEFT SHIFT is Present. MCV (mean corpuscular volume ) determinationOrdered By: Livan Velasquez on 07-28-2025 MCV (RBC) [Entitic vol] 83.2 fL 81-99 [facility] Mean corpuscular hemoglobin (MCH) determinationOrdered By: Livan Velasquez on 07-28-2025 MCH (RBC) [Entitic mass] 29.1 pg 27.0-32.0 [facility] Mean corpuscular hemoglobin concentration (MCHC) determinationOrdered By: Livan Velasquez on 07-28-2025 MCHC (RBC) [Mass/Vol] 35.0 g/dL 32-36 [facility] Mean platelet volume determi nationOrdered By: Livan Velasquez on 07-28-2025 Platelet mean volume (Bld) [Entitic vol] 8.7 fL 6.2-12.0 [facility] Monocyte percentageOrdered B y: Livan Velasquez on 07-28-2025 Monocytes/100 WBC (Bld) 12.0 % High 0-10 [facility] Neutrophil percentageOrdered By: Livan Velasquez on 07-28-2025 Neutrophils/100 WBC (Bld) 61.4 % 47-70 [facility] Nucleated red blood cell per centageOrdered By: Livan Velasquez on 07-28-2025 Nucleated RBC/100 WBC (Bld) [Ratio] 0 % 0-5 [facility] Platelet countOrdered By: Ronda Velasquez on 07-28-2025 Platelets (Bld) [#/Vol] 279 10*3/uL 150-450 [facility] RBC Auto (Bld) [#/Vol]Ordere d By: Livan Velasquez on 07-28-2025 RBC (Bld) [#/Vol] 5.19 10*6/uL 4.2-5.4 [facility] White blood cell (WBC) count Ordered By: Livan Velasquez on 07-28-2025 WBC (Bld) [#/Vol] 7.5 10*3/uL 4.4-11.0 [facility] Immunoglobulins G/A/M/Raffaele IMMUNOGLOB A QN 183 mg/dL Normal 87-352 [facility] Comment on above: Order Comment: N Performed By: #### L 3200.1100 #### [facility] [address] [place], [address] IMMUNOGLOB E QN 22 IU/mL Normal 6-495 [facility] Comment on above: Order Comment: N Result Comment: Perf ormed at: [facility] [address] [id number] Motorized Squad Captain: Houston Bowden PhD, Phone: [phone] Performed at: [facility] [id number] Motorized Squad Captain: Micheline Saravia MD, Phone: [phone] Performed By: #### L 3200.1100 #### [facility] [address] [place], [address] IMMUNOGLOB G QN 600 mg/dL Normal 586-1602 [facility] Comment on above: Order Comment: N Performed By: #### L 3200.1100 #### [facility] [address] [place], [address] IMMUNOGLOB M QN 78 mg/dL Normal 26-217 [facility] Comment on above: Order Comment: N Performed By: #### L 3200.1100 #### [facility] [address] [place], [address] Respiratory Cultureon 2024 RESPC Mixed normal respiratory nikolas. No Haemophilus, Streptococcus pneumoniae, beta-hemolytic Streptococcus or Staphylococcus aureus isolated. Normal [facility] Comment on above: Performed By: #### L 501.9520, L500.4100, L100.0100, L500.4050, L506.1001 #### [facility] [address] [place], [place], [address] Gram Stainon 06-27-2025 GS Acceptable Specimen? Yes (<25 Epithelial cells per/lpf) Gram Stain 1+ Gram positive cocci 1+ Gram positive rods 1+ Gram negative rods 2+ White Blood Cells 1+ Epithelial cells Normal [facility] Comment on above: Performed By: #### L 501.9520, L500.4100, L100.0100, L500.4050, L506.1001 #### [facility] [address] [place], [place], [address] Gram stainOrdered By: Livan Velasquez on 06-27-2025 Microscopic observation Gram stain Nom (Unsp spec) [facility] IgEOrdered By: Livan bone on 06-27-2025 IgE 22 IU/mL 6-495 [facility] Comment on above: Performed at: [facility] [address] [id number] Director: Houston Bowden PhD, Phone: [phone] at: [facility] [address] [id number] Director: Micheline Saravia MD, Phone: [phone] Microbial respiratory cultur eOrdered By: Livan Velasquez on 06-27-2025 Microorganism identified Cx Nom (Unsp spec) [facility] Serum or plasma IgA measurem ent (mass/volume)Ordered By: Livan Velasquez on 06-27-2025 IgA [Mass/Vol] 183 mg/dL 87-352 [facility] Serum or plasma IgG measurem ent (mass/volume)Ordered By: Livan Velasquez on 06-27-2025 IgG [Mass/Vol] 600 mg/dL 586-1602 [facility] 12 Lead EKGon 06-06-2025 12 Lead EKG [facility] [address] [place] [address] 12 Lead EKG 06/06/25 1106 MR#: [id number] Acct: [id number] Name: CHRIS LARSEN Rep #: [id number] : [id number] From: Wayne Ritter MD Attending Dr: Status: DEP ER Ordering Dr: Anurag Corrales MD Date: 06/06/25 Location: ED Sex: F C Admitted: Test Reason : SOB Blood Pressure : */* mmHG Vent. Rate : 107 BPM Atrial Rate : 107 BPM P-R Int : 130 ms QRS Dur : 96 ms QT Int : 370 ms P-R-T Axes : 70 89 61 degrees QTcB Int : 493 ms Sinus tachycardia QTcB >= 480 msec Abnormal ECG Confirmed by SALVATORE GRAY, WAYNE ([id number]), department editor ROSA MARIA GARCIA ([id number]) on 06/09/2025 9:16:25 AM Referred By: Confirmed By: WAYNE RITTER MD 06/09/25 0916 Date Wayne Ritter MD CC: Dr. Geoff Perez MD; Dr. Anurag Corrales MD Signed Normal [facility] Absolute lymphocyte countOrd ered By: Anurag Corrales on 06-06-2025 Lymphocytes Auto (Unsp spec) [#/Vol] 2.76 10*3/uL 0.83-4.51 [facility] Absolute neutrophil countOrd ered By: Anurag Corrales on 06-06-2025 Neutrophils (Bld) [#/Vol] 6.9 10*3/uL 2.0-7.7 [facility] Anion gap in Serum or Plasma Ordered By: Anurag Corrales on 06-06-2025 Anion gap [Moles/Vol] 12 mmol/L - [facility] Assessment of wrist artery p atency prior to arterial punctureOrdered By: Anurag Corrales on 06-06-2025 Arterial patency Wrist artery --pre arterial puncture Positive [facility] Automated lymphocyte count a s percentage of total leukocytesOrdered By: Anurag Corrales on 06-06-2025 Lymphocytes/100 WBC Auto (Unsp spec) 24.5 % - [facility] BUN/creatinine ratioOrdered By: Anurag Corrales on 06-06-2025 Urea nitrogen/Creatinine [Mass ratio] 11.9 mg/mg 10-20 [facility] Basophil percentageOrdered B y: Anurag Corrales on 06-06-2025 Basophils/100 WBC (Bld) 0.7 % 0-1 [facility] Bilirubin, totalOrdered By: Anurag Corrales on 06-06-2025 Bilirubin [Mass/Vol] 0.48 mg/dL 0.00-1.30 [facility] Blood Gases by CPSon 025 RON TEST Positive Normal [facility] Comment on above: Performed By: #### L 9000.0800 #### [facility] [address] [place], [address] Base excess Calc (Bld) [Moles/Vol] 0 mmol/L Normal -2 to +2 [facility] Comment on above: Performed By: #### L 9000.0800 #### [facility] [address] [place], [address] Blood Gas Type ART Normal [facility] Comment on above: Performed By: #### L 9000.0800 #### [facility] [address] [place], [address] CO2 [Moles/Vol] 27 mmol/L Normal [facility] Comment on above: Performed By: #### L 9000.0800 #### [facility] [address] [place], [address] FI02 6.0 Normal [facility] Comment on above: Performed By: #### L 9000.0800 #### [facility] [address] [place], [address] HCO3 (Bld) [Moles/Vol] 25.6 mmol/L Normal 22-26 [facility] Comment on above: Performed By: #### L 9000.0800 #### [facility] [address] [place], [address] Mode Not entered Normal [facility] Comment on above: Performed By: #### L 9000.0800 #### [facility] [address] [place], [address] O2 Delivery Dev AeroMask Normal [facility] Comment on above: Performed By: #### L 9000.0800 #### [facility] [address] [place], [address] pCO2 49.0 mmHg High 35-45 [facility] Comment on above: Performed By: #### L 9000.0800 #### [facility] [address] [place], [address] pH (Bld) 7.33 [pH] Low 7.35-7.45 [facility] Comment on above: Performed By: #### L 9000.0800 #### [facility] [address] [place], [address] PO2 121 mmHG High 75-100 [facility] Comment on above: Performed By: #### L 9000.0800 #### [facility] [address] [place], [address] SITE R Radial Normal [facility] Comment on above: Performed By: #### L 9000.0800 #### [facility] [address] [place], [address] SO2 98 Normal 95-99 [facility] Comment on above: Performed By: #### L 9000.0800 #### [facility] [address] [place], [address] Blood base excess determinat ionOrdered By: Anurag Corrales on 06-06-2025 Base excess Calc (BldV) [Moles/Vol] 0 mmol/L -2-2 [facility] Blood bicarbonate measuremen tOrdered By: Anurag Corrales on 08-15-2025 HCO3 (Bld) [Moles/Vol] 25.6 mmol/L 22-26 [facility] CBC W/Diff, Automatedon 08-10 27-2024 Absolute Lymph 2.76 X10 3/uL Normal 0.83-4.51 [facility] Comment on above: Performed By: #### L 501.9520, L500.4100, L100.0100, L500.4050, L506.1001 #### [facility] [address] [place], [address] Absolute Neut 6.9 X10 3/uL Normal 2.0-7.7 [facility] Comment on above: Performed By: #### L 501.9520, L500.4100, L100.0100, L500.4050, L506.1001 #### [facility] [address] [place], [address] Basophils/100 WBC (Bld) 0.7 % Normal 0-1 [facility] Comment on above: Performed By: #### L 501.9520, L500.4100, L100.0100, L500.4050, L506.1001 #### [facility] [address] [place], [address] Eosinophils/100 WBC (Bld) 5.4 % High 0-5 [facility] Comment on above: Performed By: #### L 501.9520, L500.4100, L100.0100, L500.4050, L506.1001 #### [facility] [address] [place], [address] Erythrocyte distribution width (RBC) [Ratio] 13.2 % Normal 11.6-14.6 [facility] Comment on above: Performed By: #### L 501.9520, L500.4100, L100.0100, L500.4050, L506.1001 #### [facility] [address] [place], [address] Hematocrit (Bld) [Volume fraction] 46.0 % Normal 37-47 [facility] Comment on above: Performed By: #### L 501.9520, L500.4100, L100.0100, L500.4050, L506.1001 #### [facility] [address] [place], [address] Hemoglobin (Bld) [Mass/Vol] 15.3 g/dL High 12.0-15.0 [facility] Comment on above: Performed By: #### L 501.9520, L500.4100, L100.0100, L500.4050, L506.1001 #### [facility] [address] [place], [address] IG% 0.400 Normal 0.0-0.9 [facility] Comment on above: Result Comment: IG% - Immature Granulocytes (promyelocytes, myelocytes and metamyelocytes) > 1% indicates that a LEFT SHIFT is Present. Performed By: #### L 501.9520, L500.4100, L100.0100, L500.4050, L506.1001 #### [facility] [address] [place], [address] Lymphocytes/100 WBC (Bld) 24.5 % Normal 19-41 [facility] Comment on above: Performed By: #### L 501.9520, L500.4100, L100.0100, L500.4050, L506.1001 #### [facility] [address] [place], [address] MCH (RBC) [Entitic mass] 28.9 pg Normal 27.0-32.0 [facility] Comment on above: Performed By: #### L 501.9520, L500.4100, L100.0100, L500.4050, L506.1001 #### [facility] [address] [place], [address] MCHC (RBC) [Mass/Vol] 33.3 g/dL Normal 32-36 [facility] Comment on above: Performed By: #### L 501.9520, L500.4100, L100.0100, L500.4050, L506.1001 #### [facility] [address] [place], [address] MCV (RBC) [Entitic vol] 86.8 fL Normal 81-99 [facility] Comment on above: Performed By: #### L 501.9520, L500.4100, L100.0100, L500.4050, L506.1001 #### [facility] [address] [place], [address] Monocytes/100 WBC (Bld) 7.6 % Normal 0-10 [facility] Comment on above: Performed By: #### L 501.9520, L500.4100, L100.0100, L500.4050, L506.1001 #### [facility] [address] [place], [address] Neutrophils/100 WBC (Bld) 61.4 % Normal 47-70 [facility] Comment on above: Performed By: #### L 501.9520, L500.4100, L100.0100, L500.4050, L506.1001 #### [facility] [address] [place], [address] Nucleated RBC (Bld) [#/Vol] 0 10*3/uL Normal 0-5 [facility] Comment on above: Performed By: #### L 501.9520, L500.4100, L100.0100, L500.4050, L506.1001 #### [facility] [address] [place], [address] Platelet mean volume (Bld) [Entitic vol] 9.8 fL Normal 6.2-12.0 [facility] Comment on above: Performed By: #### L 501.9520, L500.4100, L100.0100, L500.4050, L506.1001 #### [facility] [address] [place], [address] Platelets (Bld) [#/Vol] 242 10*3/uL Normal 150-450 [facility] Comment on above: Performed By: #### L 501.9520, L500.4100, L100.0100, L500.4050, L506.1001 #### [facility] [address] [place], [address] RBC (Bld) [#/Vol] 5.30 10*6/uL Normal 4.2-5.4 [facility] Comment on above: Performed By: #### L 501.9520, L500.4100, L100.0100, L500.4050, L506.1001 #### [facility] [address] [place], [address] RDW SD 41.6 fl Normal 35.1-43.9 [facility] Comment on above: Performed By: #### L 501.9520, L500.4100, L100.0100, L500.4050, L506.1001 #### [facility] [address] [place], [address] WBC (Bld) [#/Vol] 11.3 10*3/uL High 4.4-11.0 [facility] Comment on above: Performed By: #### L 501.9520, L500.4100, L100.0100, L500.4050, L506.1001 #### [facility] [address] [place], [address] Carbon dioxide, total [Moles /volume] in Central venous bloodOrdered By: Anurag Corrales on 06-06-2025 CO2 [Moles/Vol] 21.8 mmol/L 21.0-32.0 [facility] Chest 1 View (Portable)on Chest 1 View (Portable) [facility] Imaging Services [address] [place] [address] Chest 1 View (Portable) MR#: [id number] Acct: [id number] Name: CHRIS LARSEN Rep #: [id number] : 1955 F 70 From: Demario Clark MD PCP: Dr. Geoff Perez MD Status: REG ER Study: Chest 1 View (Portable) Date of Exam: 06/06/25 Exam# [id number] Ordering Dr: Anurag Corrales MD PROCEDURE: CHEST 1 VIEW (PORTABLE) 06/06/2025 REASON FOR EXAM: RESPIRATORY FAILURE, RESPIRATORY DISTRESS TECHNIQUE: Frontal view of the chest. COMPARISON: April 06, 2025, March 18, 2025 FINDINGS: Hardware: EKG leads Heart: Normal Lungs: The lungs are clear. Bones: Degenerative changes are identified within the thoracic spine. RAD/Chest 1 View (Portable) IMPRESSION: No acute abnormality Reading Location: [id number] CC: Dr. Geoff Perez MD; Dr. Anurag Corrales MD Home Health Outreach Coordinator: Signed Normal [facility] Chloride assayOrdered By: Kolby Corrales on 06-06-2025 Chloride [Moles/Vol] 106 mmol/L 98-108 [facility] Comprehensive Metabolic Prof ilon 06-06-2025 Albumin [Mass/Vol] 4.3 g/dL Normal 3.4-4.8 [facility] Comment on above: Performed By: #### L 501.9520, L500.4100, L100.0100, L500.4050, L506.1001 #### [facility] [address] [place], [address] Albumin/Globulin [Mass ratio] 1.7 {ratio} Normal 0.9-2.4 [facility] Comment on above: Performed By: #### L 501.9520, L500.4100, L100.0100, L500.4050, L506.1001 #### [facility] [address] [place], [address] ALK PHOS 73 U/L Normal 35-104 [facility] Comment on above: Performed By: #### L 501.9520, L500.4100, L100.0100, L500.4050, L506.1001 #### [facility] [address] [place], [address] ALT [Catalytic activity/Vol] 18 U/L Normal <=34 [facility] Comment on above: Performed By: #### L 501.9520, L500.4100, L100.0100, L500.4050, L506.1001 #### [facility] [address] [place], [address] AST [Catalytic activity/Vol] 28 U/L Normal <=31 [facility] Comment on above: Performed By: #### L 501.9520, L500.4100, L100.0100, L500.4050, L506.1001 #### [facility] [address] [place], [address] Bilirubin [Mass/Vol] 0.48 mg/dL Normal 0.00-1.30 [facility] Comment on above: Performed By: #### L 501.9520, L500.4100, L100.0100, L500.4050, L506.1001 #### [facility] [address] [place], [address] BUN/CRE 11.9 RATIO Normal 10-20 [facility] Comment on above: Performed By: #### L 501.9520, L500.4100, L100.0100, L500.4050, L506.1001 #### [facility] [address] [place], [address] Calcium [Mass/Vol] 9.4 mg/dL Normal 7.6-11.0 [facility] Comment on above: Performed By: #### L 501.9520, L500.4100, L100.0100, L500.4050, L506.1001 #### [facility] [address] [place], [address] Chloride [Moles/Vol] 106 mmol/L Normal 98-108 [facility] Comment on above: Performed By: #### L 501.9520, L500.4100, L100.0100, L500.4050, L506.1001 #### [facility] [address] [place], [address] CO2 [Moles/Vol] 21.8 mmol/L Normal 21.0-32.0 [facility] Comment on above: Performed By: #### L 501.9520, L500.4100, L100.0100, L500.4050, L506.1001 #### [facility] [address] [place], [address] Creatinine [Mass/Vol] 0.68 mg/dL Low 0.70-1.20 [facility] Comment on above: Performed By: #### L 501.9520, L500.4100, L100.0100, L500.4050, L506.1001 #### [facility] [address] [place], [address] ECRCL 77.16 ml/min Normal 50-250 [facility] Comment on above: Performed By: #### L 501.9520, L500.4100, L100.0100, L500.4050, L506.1001 #### [facility] [address] [place], [address] GAP 12 Normal 5-15 [facility] Comment on above: Performed By: #### L 501.9520, L500.4100, L100.0100, L500.4050, L506.1001 #### [facility] [address] [place], [address] GFR/1.73 sq M.predicted among non-blacks MDRD (S/P/Bld) [Vol rate/Area] 94 mL/min/{1.73_m2} Normal >60 [facility] Comment on above: Result Comment: mL/m in/1.73m2 CKD-EPI Creatinine Equation (2020) Performed By: #### L 501.9520, L500.4100, L100.0100, L500.4050, L506.1001 #### [facility] [address] [place], [address] Globulin (S) [Mass/Vol] 2.5 g/dL Normal 2.2-4.2 [facility] Comment on above: Performed By: #### L 501.9520, L500.4100, L100.0100, L500.4050, L506.1001 #### [facility] [address] [place], [address] Glucose [Mass/Vol] 145 mg/dL High 70-99 [facility] Comment on above: Performed By: #### L 501.9520, L500.4100, L100.0100, L500.4050, L506.1001 #### [facility] [address] [place], [address] Potassium [Moles/Vol] 4.2 mmol/L Normal 3.3-5.1 [facility] Comment on above: Performed By: #### L 501.9520, L500.4100, L100.0100, L500.4050, L506.1001 #### [facility] [address] [place], [address] Sodium [Moles/Vol] 140 mmol/L Normal 133-145 [facility] Comment on above: Performed By: #### L 501.9520, L500.4100, L100.0100, L500.4050, L506.1001 #### [facility] [address] [place], [address] T PROT 6.7 g/dL Normal 5.9-8.4 [facility] Comment on above: Performed By: #### L 501.9520, L500.4100, L100.0100, L500.4050, L506.1001 #### [facility] [address] [place], [address] Urea nitrogen [Mass/Vol] 8 mg/dL Normal 4-19 [facility] Comment on above: Performed By: #### L 501.9520, L500.4100, L100.0100, L500.4050, L506.1001 #### [facility] [address] [place], [address] Emergency Department Summary on 06-06-2025 Emergency Department Summary [facility] Medical Records Department [address] [facility] [place] [address] Emergency Department Summary 06/06/25 MR#: [id number] Acct: [id number] Name: CHRIS LARSEN Rep #: [id number] : [id number] 70 From: Anurag Corrales MD PCP: Dr. Geoff Perez MD Status:REG ER Location: ED HPI History of Present Illness Chief Complaint: Shortness of Breath Detail of Chief Complaint: Onset 3 days ago Informant: patient and spouse/S.O. Onset/Context/Timing Onset: Days (Exacerbation of asthma starting 2 to 3 days ago worse this morning) Context: gradual (Abruptly got worse this morning) Timing: Continuous Quality: Positive for Dyspnea on exertion and Wheezing; Negative for Orthopnea or PND Current Severity: Severe Maximum Severity: Severe Worsened by: Nothing Relieved by: Nothing Associated Symptoms cough and rhinorrhea; Negative for post nasal drip, ear pain, fever, sore throat, subjective, chills or sweats Chest Pain: Positive for None Narrative Narrative: Patient is a 70-year-old woman. She has history of asthma, hypothyroidism who was seen earlier this year for acute exacerbation of asthma. She had mild upper respiratory symptoms with wheezing that started 2 to 3 days ago. Abruptly got worse today. She arrived with a pulse ox of 71%. She was diaphoretic obvious Rester distress able to speak in 1-2 word sentences. Most of her questions were derived that she could nod yes or no. When I entered the room she was receiving the treatment. She was on 6 L with a 91% saturation. Patient denies fever, chills night sweats. Patient does report mild congestion and hoarse voice. She denies sore throat. Her cough is nonproductive. She denies orthopnea or PND. She denies pedal edema. She has no history of congestive heart failure. She has no history of VTE. She has no risk factors for VTE. She denies leg pain, swelling or discoloration. She denies history of peptic ulcer disease and denies black or maroon-colored stool. PE Risk Factors: Negative for Cancer, OCP + Smoking + > 35, Prior DVT or PE, Recent immobilization, Recent surgery or Recent travel Prior similar symptoms: Yes Recent Illness/Hospitalizatio n: No PFSH [facility] Medical History Wears glasses Cancer Post-menopausal Depression Non-smoker Asthma Home Medications ???Medication ???Instructions ???Recorded ???Last Taken ???Type budesonide-formoterol HFA 160 1 inhaler PO DAILY 08/07/15 Unknow n History mcg-4.5 mcg/actuation aerosol inhaler (Symbicort) multivitamin with minerals-folic 1 tab PO DAILY 04/17/23 Unknown Hi story acid 200 mcg chewable tablet (Multivitamin Gummies) albuterol sulfate 90 mcg/actuation 2 puff inhalation Q4H 04/06/25 U nknown History aerosol inhaler levothyroxine 50 mcg tablet 50 mcg PO DAILY 04/06/25 Unknown H istory oxybutynin chloride 5 mg tablet 5 mg PO BID 04/06/25 Unknown Histo ry venlafaxine 37.5 mg tablet 37.5 mg PO DAILY 04/06/25 Unknown History inhalational spacing device (Space #1 ea 06/06/25 Unknown Rx Chamber) prednisone 20 mg tablet 60 mg (3 x 20 mg) PO DAILY #15 Unknown Rx TABLETS Allergy/AdvReac Type Severity Reaction Status Date / Time cat dander Allergy dyspnea Verified 06/06/25 10:51 Family History Other Cancer Surgical History Previous section Social History Smoking Status: Former smoker ROS ROS ED Constitutional Constitutional ED: Denies chills, fever(s), sweats or weight loss Eyes Eyes: Denies blurry vision or change in vision ENT ENT ED: Denies ear pain, rhinorrhea or sore throat Cardiovascular Cardiovascular: Reports palpitations and racing heartbeat; Denies chest pain, orthopnea or paroxysmal nocturnal dyspnea Respiratory/Chest Respiratory/Chest: Reports cough, dyspnea and dyspnea on exertion; Denies orthopnea, paroxysmal nocturnal dyspnea or sputum Gastrointestinal Gastrointestinal: Denies abdominal pain, nausea or vomiting Genitourinary Genitourinary ED: Denies dysuria, hematuria or urinary frequency Musculoskeletal Musculoskeletal: Denies arthralgias or myalgias Integumentary Denies rash Neurologic Neurologic: Denies headache(s), paresthesias or weakness Endocrine Endocrinology: Denies cold intolerance or heat intolerance Hematologic/Lymphatic Hematologic/Lymphatic: Denies easy bleeding or easy bruising EXAM Physical Exam Const Vital Signs: 06/06/25 10:48 06/06/25 10:48 06/06/25 11:11 Temperature 97 F L Temperature Source Temporal Pulse Rate 106 H 107 H Respiratory Rate 28 H 24 H Respiratory Effort Short of Breath Labored (more content not included)... Normal [facility] Eosinophil percentageOrdered By: Anuragyamileth Corrales on 06-06-2025 Eosinophils/100 WBC (Bld) 5.4 % High 0-5 [facility] Erythrocyte distribution wid th ratioOrdered By: Anurag Corrales on 06-06-2025 Erythrocyte distribution width (RBC) [Ratio] 13.2 % 11.6-14.6 [facility] Erythrocyte distribution wid th standard deviationOrdered By: Anurag Corrales on 06-06-2025 Erythrocyte distribution width (RBC) [Ratio] 41.6 fl 35.1-43.9 [facility] Glomerular filtration rate ( GFR) estimation/1.73 sq m using serum, plasma, or whole bOrdered By: Anurag Corrales on 06-06-2025 GFR/1.73 sq M.predicted among non-blacks MDRD (S/P/Bld) [Vol rate/Area] 94 mL/min/{1.73_m2} >60 [facility] Comment on above: mL/min/1.73m2 CKD-EP I Creatinine Equation (2020) Hematocrit Auto (Bld) [Volum e fraction]Ordered By: Anurag Corrales on 06-06-2025 Hematocrit (Bld) [Volume fraction] 46.0 % 37-47 [facility] Hemoglobin measurementOrdere d By: Anurag Corrales on 06-06-2025 Hemoglobin (Bld) [Mass/Vol] 15.3 g/dL High 12.0-15.0 [facility] Immature granulocytes/100 WB C Auto (Bld)Ordered By: Anurag Corrales on 06-06-2025 Immature granulocytes/100 WBC (Bld) 0.400 % 0.0-0.9 [facility] Comment on above: IG% - Immature Granu locytes (promyelocytes, myelocytes and metamyelocytes) > 1% indicates that a LEFT SHIFT is Present. Laboratory - Chemistry and C hemistry - challengeOrdered By: Anurag Corrales on 06-06-2025 AST [Catalytic activity/Vol] 28 U/L <32 [facility] Lactic Acidon 06-06-2025 Lactate [Moles/Vol] 1.2 mmol/L Normal 0.0-2.0 [facility] Comment on above: Order Comment: Y Performed By: #### L 501.9514, L500.4100, L100.0100, L500.4050, L506.1001 #### [facility] [address] [place], [place], [id number] Lactic acid measurementOrder ed By: Anurag Corrales on 06-06-2025 Lactate [Moles/Vol] 1.2 mmol/L 0.0-2.0 [facility] MCV (mean corpuscular volume ) determinationOrdered By: Anurag Corrales on 06-06-2025 MCV (RBC) [Entitic vol] 86.8 fL 81-99 [facility] Mean corpuscular hemoglobin (MCH) determinationOrdered By: Anurag Corrales on 06-06-2025 MCH (RBC) [Entitic mass] 28.9 pg 27.0-32.0 [facility] Mean corpuscular hemoglobin concentration (MCHC) determinationOrdered By: Anurag Corrales on 06-06-2025 MCHC (RBC) [Mass/Vol] 33.3 g/dL 32-36 [facility] Mean platelet volume determi nationOrdered By: Anurag Corrales on 06-06-2025 Platelet mean volume (Bld) [Entitic vol] 9.8 fL 6.2-12.0 [facility] Measurement, pHOrdered By: Kosta Corrales on 06-06-2025 pH (Unsp spec) 7.33 [pH] Low 7.35-7.45 [facility] Monocyte percentageOrdered B y: Anurag Corrales on 06-06-2025 Monocytes/100 WBC (Bld) 7.6 % 0-10 [facility] Neutrophil percentageOrdered By: Anurag Corrales on 06-06-2025 Neutrophils/100 WBC (Bld) 61.4 % 47-70 [facility] No Panel InformationOrdered By: Anurag Corrales on 06-06-2025 Blood Gas Sample Site R Radial [facility] Blood Gas Specimen Type ART [facility] Blood Gas Vent Mode Not entered [facility] Oxygen Delivery Device AeroMask [facility] Nucleated red blood cell per centageOrdered By: Anurag Corrales on 06-06-2025 Nucleated RBC/100 WBC (Bld) [Ratio] 0 % 0-5 [facility] Platelet countOrdered By: Kolby Corrales on 06-06-2025 Platelets (Bld) [#/Vol] 242 10*3/uL 150-450 [facility] Potassium measurement (mass/ volume)Ordered By: Anurag Corrales on 06-06-2025 Potassium (Unsp spec) [Mass/Vol] 4.2 mmol/L 3.3-5.1 [facility] RBC Auto (Bld) [#/Vol]Ordere d By: Anurag Corrales on 06-06-2025 RBC (Bld) [#/Vol] 5.30 10*6/uL 4.2-5.4 [facility] Serum creatinine measurement (mass/volume)Ordered By: Anurag Corrales on 06-06-2025 Creatinine [Mass/Vol] 0.68 mg/dL Low 0.70-1.20 [facility] Serum globulin measurementOr dered By: Anurag Corrales on 06-06-2025 Globulin (S) [Mass/Vol] 2.5 g/dL 2.2-4.2 [facility] Serum glucose measurement (m ass/volume)Ordered By: Anurag Corrales on 06-06-2025 Glucose [Mass/Vol] 145 mg/dL High 70-99 [facility] Serum or plasma alanine mcbride otransferase (ALT) measurementOrdered By: Anuragyamileth Corrales on 06-06-2025 ALT [Catalytic activity/Vol] 18 U/L <35 [facility] Serum or plasma albumin manoj urement (mass/volume)Ordered By: Anurag Corrales on 06-06-2025 Albumin [Mass/Vol] 4.3 g/dL 3.4-4.8 [facility] Serum or plasma albumin/glob ulin mass ratioOrdered By: Anurag Corrales on 06-06-2025 Albumin/Globulin [Mass ratio] 1.7 {ratio} 0.9-2.4 [facility] Serum or plasma alkaline bertha sphatase measurementOrdered By: Anurag Corrales 06-06-2025 ALP [Catalytic activity/Vol] 73 U/L 35-104 [facility] Serum or plasma calcium manoj urement (mass/volume)Ordered By: Anurag Corrales on 06-06-2025 Calcium [Mass/Vol] 9.4 mg/dL 7.6-11.0 [facility] Serum or plasma urea nitroge n measurement (mass/volume)Ordered By: Anurag Corrales on 06-06-2025 Urea nitrogen [Mass/Vol] 8 mg/dL 4-19 [facility] Sodium levelOrdered By: Anurag Corrales on 06-06-2025 Sodium [Moles/Vol] 140 mmol/L 133-145 [facility] Total carbon dioxide measure mentOrdered By: Anurag Corrales on 06-06-2025 CO2 [Moles/Vol] 27 mmol/L [facility] Total proteinOrdered By: Anurag Wilsono on 06-06-2025 Protein [Mass/Vol] 6.7 g/dL 5.9-8.4 [facility] White blood cell (WBC) count Ordered By: Anurag Corrales on 06-06-2025 WBC (Bld) [#/Vol] 11.3 10*3/uL High 4.4-11.0 [facility] Absolute lymphocyte countOrd ered By: Geoff Perez on 06-03-2025 Lymphocytes Auto (Unsp spec) [#/Vol] 1.95 10*3/uL 0.83-4.51 [facility] Absolute neutrophil countOrd ered By: Geoff Chris on 06-03-2025 Neutrophils (Bld) [#/Vol] 6.0 10*3/uL 2.0-7.7 [facility] Anion gap in Serum or Plasma Ordered By: Geoff Perez on 06-03-2025 Anion gap [Moles/Vol] 13 mmol/L - [facility] Automated lymphocyte count a s percentage of total leukocytesOrdered By: Geoff Chris on 06-03-2025 Lymphocytes/100 WBC Auto (Unsp spec) 21.1 % 19-41 [facility] BUN/creatinine ratioOrdered By: Geoff Perez on 06-03-2025 Urea nitrogen/Creatinine [Mass ratio] 11.4 mg/mg 10-20 [facility] Basophil percentageOrdered B y: Geoff Perez on 06-03-2025 Basophils/100 WBC (Bld) 0.5 % 0-1 [facility] Bilirubin, totalOrdered By: Geoff Chris on 06-03-2025 Bilirubin [Mass/Vol] 0.47 mg/dL 0.00-1.30 [facility] CBC W/Diff, Automatedon 05-23 Absolute Lymph 1.95 X10 3/uL Normal 0.83-4.51 [facility] Comment on above: Performed By: #### L 501.9520, L500.4100, L100.0100, L500.4050, L506.1001 #### [facility] [address] [place], [address] Absolute Neut 6.0 X10 3/uL Normal 2.0-7.7 [facility] Comment on above: Performed By: #### L 501.9520, L500.4100, L100.0100, L500.4050, L506.1001 #### [facility] [address] [place], [address] Basophils/100 WBC (Bld) 0.5 % Normal 0-1 [facility] Comment on above: Performed By: #### L 501.9520, L500.4100, L100.0100, L500.4050, L506.1001 #### [facility] [address] [place], [address] Eosinophils/100 WBC (Bld) 4.3 % Normal 0-5 [facility] Comment on above: Performed By: #### L 501.9520, L500.4100, L100.0100, L500.4050, L506.1001 #### [facility] [address] [place], [address] Erythrocyte distribution width (RBC) [Ratio] 13.4 % Normal 11.6-14.6 [facility] Comment on above: Performed By: #### L 501.9520, L500.4100, L100.0100, L500.4050, L506.1001 #### [facility] [address] [place], [address] Hematocrit (Bld) [Volume fraction] 45.6 % Normal 37-47 [facility] Comment on above: Performed By: #### L 501.9520, L500.4100, L100.0100, L500.4050, L506.1001 #### [facility] [address] [place], [address] Hemoglobin (Bld) [Mass/Vol] 15.6 g/dL High 12.0-15.0 [facility] Comment on above: Performed By: #### L 501.9520, L500.4100, L100.0100, L500.4050, L506.1001 #### [facility] [address] [place], [address] IG% 0.300 Normal 0.0-0.9 [facility] Comment on above: Result Comment: IG% - Immature Granulocytes (promyelocytes, myelocytes and metamyelocytes) > 1% indicates that a LEFT SHIFT is Present. Performed By: #### L 501.9520, L500.4100, L100.0100, L500.4050, L506.1001 #### [facility] [address] [place], [address] Lymphocytes/100 WBC (Bld) 21.1 % Normal 19-41 [facility] Comment on above: Performed By: #### L 501.9520, L500.4100, L100.0100, L500.4050, L506.1001 #### [facility] [address] [place], [address] MCH (RBC) [Entitic mass] 29.4 pg Normal 27.0-32.0 [facility] Comment on above: Performed By: #### L 501.9520, L500.4100, L100.0100, L500.4050, L506.1001 #### [facility] [address] [place], [address] MCHC (RBC) [Mass/Vol] 34.2 g/dL Normal 32-36 [facility] Comment on above: Performed By: #### L 501.9520, L500.4100, L100.0100, L500.4050, L506.1001 #### [facility] [address] [place], [address] MCV (RBC) [Entitic vol] 85.9 fL Normal 81-99 [facility] Comment on above: Performed By: #### L 501.9520, L500.4100, L100.0100, L500.4050, L506.1001 #### [facility] [address] [place], [address] Monocytes/100 WBC (Bld) 8.9 % Normal 0-10 [facility] Comment on above: Performed By: #### L 501.9520, L500.4100, L100.0100, L500.4050, L506.1001 #### [facility] [address] [place], [address] Neutrophils/100 WBC (Bld) 64.9 % Normal 47-70 [facility] Comment on above: Performed By: #### L 501.9520, L500.4100, L100.0100, L500.4050, L506.1001 #### [facility] [address] [place], [address] Nucleated RBC (Bld) [#/Vol] 0 10*3/uL Normal 0-5 [facility] Comment on above: Performed By: #### L 501.9520, L500.4100, L100.0100, L500.4050, L506.1001 #### [facility] [address] [place], [address] Platelet mean volume (Bld) [Entitic vol] 9.0 fL Normal 6.2-12.0 [facility] Comment on above: Performed By: #### L 501.9520, L500.4100, L100.0100, L500.4050, L506.1001 #### [facility] [address] [place], [address] Platelets (Bld) [#/Vol] 260 10*3/uL Normal 150-450 [facility] Comment on above: Performed By: #### L 501.9520, L500.4100, L100.0100, L500.4050, L506.1001 #### [facility] [address] [place], [address] RBC (Bld) [#/Vol] 5.31 10*6/uL Normal 4.2-5.4 [facility] Comment on above: Performed By: #### L 501.9520, L500.4100, L100.0100, L500.4050, L506.1001 #### [facility] [address] [place], [address] RDW SD 42.4 fl Normal 35.1-43.9 [facility] Comment on above: Performed By: #### L 501.9520, L500.4100, L100.0100, L500.4050, L506.1001 #### [facility] [address] [place], [address] WBC (Bld) [#/Vol] 9.3 10*3/uL Normal 4.4-11.0 [facility] Comment on above: Performed By: #### L 501.9520, L500.4100, L100.0100, L500.4050, L506.1001 #### [facility] [address] [place], [address] Calculated very low density lipoprotein (VLDL) cholesterol measurementOrdered By: Geoff Perez on 06-03-2025 Calculated very low density lipoprotein (VLDL) cholesterol measurement 34 mg/dL 5-40 [facility] Carbon dioxide, total [Moles /volume] in Central venous bloodOrdered By: Geoff Perez on 06-03-2025 CO2 [Moles/Vol] 24.6 mmol/L 21.0-32.0 [facility] Chloride assayOrdered By: Gume Perez on 06-03-2025 Chloride [Moles/Vol] 103 mmol/L 98-108 [facility] Comprehensive Metabolic Prof ilon 06-03-2025 Albumin [Mass/Vol] 4.3 g/dL Normal 3.4-4.8 [facility] Comment on above: Performed By: #### L 501.9520, L500.4100, L100.0100, L500.4050, L506.1001 #### [facility] [address] [place], [address] Albumin/Globulin [Mass ratio] 1.7 {ratio} Normal 0.9-2.4 [facility] Comment on above: Performed By: #### L 501.9520, L500.4100, L100.0100, L500.4050, L506.1001 #### [facility] [address] [place], [address] ALK PHOS 75 U/L Normal 35-104 [facility] Comment on above: Performed By: #### L 501.9520, L500.4100, L100.0100, L500.4050, L506.1001 #### [facility] [address] [place], [address] ALT [Catalytic activity/Vol] 19 U/L Normal <=34 [facility] Comment on above: Performed By: #### L 501.9520, L500.4100, L100.0100, L500.4050, L506.1001 #### [facility] [address] [place], [address] AST [Catalytic activity/Vol] 27 U/L Normal <=31 [facility] Comment on above: Performed By: #### L 501.9520, L500.4100, L100.0100, L500.4050, L506.1001 #### [facility] [address], [address] Bilirubin [Mass/Vol] 0.47 mg/dL Normal 0.00-1.30 [facility] Comment on above: Performed By: #### L 501.9520, L500.4100, L100.0100, L500.4050, L506.1001 #### [facility] [address] [place], [address] BUN/CRE 11.4 RATIO Normal 10-20 [facility] Comment on above: Performed By: #### L 501.9520, L500.4100, L100.0100, L500.4050, L506.1001 #### [facility] [address] [place], [address] Calcium [Mass/Vol] 9.6 mg/dL Normal 7.6-11.0 [facility] Comment on above: Performed By: #### L 501.9520, L500.4100, L100.0100, L500.4050, L506.1001 #### [facility] [address] [place], [address] Chloride [Moles/Vol] 103 mmol/L Normal 98-108 [facility] Comment on above: Performed By: #### L 501.9520, L500.4100, L100.0100, L500.4050, L506.1001 #### [facility] [address] [place], [address] CO2 [Moles/Vol] 24.6 mmol/L Normal 21.0-32.0 [facility] Comment on above: Performed By: #### L 501.9520, L500.4100, L100.0100, L500.4050, L506.1001 #### [facility] [address] [place], [address] Creatinine [Mass/Vol] 0.73 mg/dL Normal 0.70-1.20 [facility] Comment on above: Performed By: #### L 501.9520, L500.4100, L100.0100, L500.4050, L506.1001 #### [facility] [address] [place], [address] GAP 13 Normal 5-15 [facility] Comment on above: Performed By: #### L 501.9520, L500.4100, L100.0100, L500.4050, L506.1001 #### [facility] [address] [place], [address] GFR/1.73 sq M.predicted among non-blacks MDRD (S/P/Bld) [Vol rate/Area] 90 mL/min/{1.73_m2} Normal >60 [facility] Comment on above: Result Comment: mL/m in/1.73m2 CKD-EPI Creatinine Equation (2020) Performed By: #### L 501.9520, L500.4100, L100.0100, L500.4050, L506.1001 #### [facility] [address] [place], [address] Globulin (S) [Mass/Vol] 2.6 g/dL Normal 2.2-4.2 [facility] Comment on above: Performed By: #### L 501.9520, L500.4100, L100.0100, L500.4050, L506.1001 #### [facility] [address] [place], [address] Glucose [Mass/Vol] 93 mg/dL Normal 70-99 [facility] Comment on above: Performed By: #### L 501.9520, L500.4100, L100.0100, L500.4050, L506.1001 #### [facility] [address] [place], [address] Potassium [Moles/Vol] 4.1 mmol/L Normal 3.3-5.1 [facility] Comment on above: Performed By: #### L 501.9520, L500.4100, L100.0100, L500.4050, L506.1001 #### [facility] [address] [place], [address] Sodium [Moles/Vol] 140 mmol/L Normal 133-145 [facility] Comment on above: Performed By: #### L 501.9520, L500.4100, L100.0100, L500.4050, L506.1001 #### [facility] [address] [place], [address] T PROT 6.9 g/dL Normal 5.9-8.4 [facility] Comment on above: Performed By: #### L 501.9520, L500.4100, L100.0100, L500.4050, L506.1001 #### [facility] [address] [place], [address] Urea nitrogen [Mass/Vol] 8 mg/dL Normal 4-19 [facility] Comment on above: Performed By: #### L 501.9520, L500.4100, L100.0100, L500.4050, L506.1001 #### [facility] [address] [place], [address] Eosinophil percentageOrdered By: Geoff Perez on 06-03-2025 Eosinophils/100 WBC (Bld) 4.3 % 0-5 [facility] Erythrocyte distribution wid th ratioOrdered By: Geoff Perez on 06-03-2025 Erythrocyte distribution width (RBC) [Ratio] 13.4 % 11.6-14.6 [facility] Erythrocyte distribution wid th standard deviationOrdered By: Geoff Chris on 06-03-2025 Erythrocyte distribution width (RBC) [Ratio] 42.4 fl 35.1-43.9 [facility] Glomerular filtration rate ( GFR) estimation/1.73 sq m using serum, plasma, or whole bOrdered By: Geoff Perez on 06-03-2025 GFR/1.73 sq M.predicted among non-blacks MDRD (S/P/Bld) [Vol rate/Area] 90 mL/min/{1.73_m2} >60 [facility] Comment on above: mL/min/1.73m2 CKD-EP I Creatinine Equation (2020) Hematocrit Auto (Bld) [Volum e fraction]Ordered By: Geoff Perez on 06-03-2025 Hematocrit (Bld) [Volume fraction] 45.6 % 37-47 [facility] Hemoglobin measurementOrdere d By: Geoff Perez on 06-03-2025 Hemoglobin (Bld) [Mass/Vol] 15.6 g/dL High 12.0-15.0 [facility] Immature granulocytes/100 WB C Auto (Bld)Ordered By: Geoff Perez on 06-03-2025 Immature granulocytes/100 WBC (Bld) 0.300 % 0.0-0.9 [facility] Comment on above: IG% - Immature Granu locytes (promyelocytes, myelocytes and metamyelocytes) > 1% indicates that a LEFT SHIFT is Present. LDL calc ser/plasOrdered By: Geoff Perez on 06-03-2025 Cholesterol in LDL [Mass/Vol] 133 mg/dL [facility] Comment on above: Dcgvzayuxk=307-977 m g/dL & Higher Erhl=910 mg/dL or greaterFriedwald Equation for LDL-C Laboratory - Chemistry and C hemistry - challengeOrdered By: Geoff Perez on 06-03-2025 AST [Catalytic activity/Vol] 27 U/L <32 [facility] Lipid Profileon 06-03-2025 CHOL:HDL 3.21 Normal [facility] Comment on above: Performed By: #### L 501.9520, L500.4100, L100.0100, L500.4050, L506.1001 #### [facility] [address] [place], [place], [address] Cholesterol [Mass/Vol] 243 mg/dL High <=[address] [facility] Comment on above: Result Comment: Chol esterol level, Desirable <200 mg/dL Borderline high cholesterol 200-239 mg/dL High cholesterol >=240 mg/dL Recommendations of the NCEP Adult Treatment Panel for the following risk-cutoff thresholds for the [place] population. Performed By: #### L 501.9520, L500.4100, L100.0100, L500.4050, L506.1001 #### [facility] [address] [place], [address] Cholesterol in HDL [Mass/Vol] 76 mg/dL Normal [facility] Comment on above: Result Comment: Nelly onal Cholesterol Education Program (NCEP) guidelines: <40 mg/dL: Low HDL-cholesterol (major risk factor for CHD) >= 60 mg/dL: High HDL-cholesterol (negative risk factor for CHD) HDL-cholesterol is affected by a number of factors, e.g. smoking, exercise, hormones, sex and age. Performed By: #### L 501.9520, L500.4100, L100.0100, L500.4050, L506.1001 #### [facility] [address] [place], [address] Cholesterol in LDL [Mass/Vol] 133 mg/dL Normal [facility] Comment on above: Result Comment: Bord zrvhnj=322-592 mg/dL Higher Atda=130 mg/dL or greater Friedwald Equation for LDL-C Performed By: #### L 501.9520, L500.4100, L100.0100, L500.4050, L506.1001 #### [facility] [address] [place], [address] Cholesterol in VLDL [Mass/Vol] 34 mg/dL Normal 5-40 [facility] Comment on above: Performed By: #### L 501.9520, L500.4100, L100.0100, L500.4050, L506.1001 #### [facility] [address] [place], [address] Triglyceride [Mass/Vol] 172 mg/dL Normal [facility] Comment on above: Result Comment: The drugs N-Acetylcysteine and Metamizole may falsely depress this assay. Normal range: <150 mg/dL Borderline High: 150-199 mg/dL High: 200-499 mg/dL Very High: >500 mg/dL Performed By: #### L 501.9520, L500.4100, L100.0100, L500.4050, L506.1001 #### [facility] [place], [address] MCV (mean corpuscular volume ) determinationOrdered By: Geoff Perez on 06-03-2025 MCV (RBC) [Entitic vol] 85.9 fL 81-99 [facility] Mean corpuscular hemoglobin (MCH) determinationOrdered By: Geoff Perez on 06-03-2025 MCH (RBC) [Entitic mass] 29.4 pg 27.0-32.0 [facility] Mean corpuscular hemoglobin concentration (MCHC) determinationOrdered By: Geoff Perez on 06-03-2025 MCHC (RBC) [Mass/Vol] 34.2 g/dL 32-36 [facility] Mean platelet volume determi nationOrdered By: Geoff Perez on 06-03-2025 Platelet mean volume (Bld) [Entitic vol] 9.0 fL 6.2-12.0 [facility] Monocyte percentageOrdered B y: Geoff Perez on 06-03-2025 Monocytes/100 WBC (Bld) 8.9 % 0-10 [facility] Neutrophil percentageOrdered By: Geoff Perez on 06-03-2025 Neutrophils/100 WBC (Bld) 64.9 % 47-70 [facility] Nucleated red blood cell per centageOrdered By: Geoff Perez on 06-03-2025 Nucleated RBC/100 WBC (Bld) [Ratio] 0 % 0-5 [facility] Platelet countOrdered By: Gume Perez on 06-03-2025 Platelets (Bld) [#/Vol] 260 10*3/uL 150-450 [facility] Potassium measurement (mass/ volume)Ordered By: Geoff Perez on 06-03-2025 Potassium (Unsp spec) [Mass/Vol] 4.1 mmol/L 3.3-5.1 [facility] RBC Auto (Bld) [#/Vol]Ordere d By: Geoff Perez on 06-03-2025 RBC (Bld) [#/Vol] 5.31 10*6/uL 4.2-5.4 [facility] Screening total cholesterol/ high density lipoprotein (HDL) cholesterol ratioOrdered By: Geoff Perez on 06-03-2025 Cholesterol.total/Susu sterol in HDL [Mass ratio] 3.21 {ratio} [facility] Serum creatinine measurement (mass/volume)Ordered By: Geoff Perez on 06-03-2025 Creatinine [Mass/Vol] 0.73 mg/dL 0.70-1.20 [facility] Serum globulin measurementOr dered By: Geoff Perez 06-03-2025 Globulin (S) [Mass/Vol] 2.6 g/dL 2.2-4.2 [facility] Serum glucose measurement (m ass/volume)Ordered By: Geoff Perez 06-03-2025 Glucose [Mass/Vol] 93 mg/dL 70-99 [facility] Serum or plasma alanine mcbride otransferase (ALT) measurementOrdered By: Geoff Perez 06-03-2025 ALT [Catalytic activity/Vol] 19 U/L <35 [facility] Serum or plasma albumin manoj urement (mass/volume)Ordered By: Geoff Perez 06-03-2025 Albumin [Mass/Vol] 4.3 g/dL 3.4-4.8 [facility] Serum or plasma albumin/glob ulin mass ratioOrdered By: Geoff Perez 06-03-2025 Albumin/Globulin [Mass ratio] 1.7 {ratio} 0.9-2.4 [facility] Serum or plasma alkaline bertha sphatase measurementOrdered By: Geoff Perez 06-03-2025 ALP [Catalytic activity/Vol] 75 U/L 35-104 [facility] Serum or plasma calcium manoj urement (mass/volume)Ordered By: Geoff Perez 06-03-2025 Calcium [Mass/Vol] 9.6 mg/dL 7.6-11.0 [facility] Serum or plasma cholesterol in HDL measurement (mass/volume)Ordered By: Geoff Perez 06-03-2025 Cholesterol in HDL [Mass/Vol] 76 mg/dL >40 [facility] Comment on above: National Cholesterol Education Program (NCEP) guidelines:<40 mg/dL: Low HDL-cholesterol (major risk factor for CHD)>= 60 mg/dL: High HDL-cholesterol (negative risk factor for CHD)HDL-cholesterol is affected by a number of factors, e.g. smoking, exercise, hormones, sex and age. Serum or plasma cholesterol measurement (mass/volume)Ordered By: Geoff Perez on 06-03-2025 Cholesterol [Mass/Vol] 243 mg/dL High <[address] [facility] Comment on above: Cholesterol level, D esirable <200 mg/dLBorderline high cholesterol 200-239 mg/dLHigh cholesterol >=240 mg/dLRecommendations of the NCEP Adult Treatment Panel for the following risk-cutoff thresholds for the [place] population. Serum or plasma urea nitroge n measurement (mass/volume)Ordered By: Geoff Perez on 06-03-2025 Urea nitrogen [Mass/Vol] 8 mg/dL 4-19 [facility] Sodium levelOrdered By: Geoff Perez on 06-03-2025 Sodium [Moles/Vol] 140 mmol/L 133-145 [facility] TSH DL <= 0.005 mIU/L QnOrde red By: Geoff Perez on 06-03-2025 TSH Qn 1.790 uIU/mL 0.300-4.200 [facility] Thyroid Stim Hormone (TSH)on 06-03-2025 TSH 1.790 uIU/mL Normal 0.300-4.200 [facility] Comment on above: Performed By: #### L 501.9520, L500.4100, L100.0100, L500.4050, L506.1001 #### [facility] [address] [place], [address] Total proteinOrdered By: Geoff Perez on 06-03-2025 Protein [Mass/Vol] 6.9 g/dL 5.9-8.4 [facility] Triglycerides measurementOrd ered By: Geoff Perez on 06-03-2025 Triglyceride [Mass/Vol] 172 mg/dL <199 [facility] Comment on above: The drugs N-Acetylcy steine and Metamizole may falsely depress this assay. Normal range: <150 mg/dLBorderline High: 150-199 mg/dLHigh: 200-499 mg/dLVery High: >500 mg/dL Vitamin D,25 Hydroxyon 06-03 Vitamin D 25-OH 48.4 ng/mL Normal 30-100 [facility] Comment on above: Result Comment: Dianna min D Status Deficiency: <20 ng/mL (50nmol/L) Insufficiency: 20-30 ng/mL (50-75 nmol/L) Sufficiency: 30-100 ng/mL (75-250 nmol/L) Toxicity: >100 ng/mL (>250 nmol/L) Performed By: #### L 501.9520, L500.4100, L100.0100, L500.4050, L506.1001 #### [facility] [address] [place], [address] White blood cell (WBC) count Ordered By: Geoff Perez on 06-03-2025 WBC (Bld) [#/Vol] 9.3 10*3/uL 4.4-11.0 [facility] Discharge Instructionon 03-23 Discharge Instruction [facility] Medical Records Department [address] [place] [address] Instructions for Home/Discharge Instructions 04/07/25 0809 MR#: [id number] Acct: [id number] Name: CHRIS LARSEN Rep #: [id number] : [id number] From: Carlos Barajas MD PCP: Dr. Geoff Perez MD Status:ADM [place] Discharge Instructions Diet Discharge Diet: No restrictions DC O2, CPAP, BIPAP needs Home O2 Discharge instructions: No Dressing / Incision Discharge Activity: Return to Normal Activity Dressing / Incision Call your doctor if you observe: Fever of 101 or Higher, Shortness of breath, Dizziness, Fainting spells, Swelling in the ankles, Chest pain and Increased palpitations (irregular heartbeat) Follow Up Care Test Results: Test results from this visit will be discussed in further detail at your follow-up appointment, if applicable. Discharge Plan Admission Admit Date/Time: 04/06/25 18:40 Attending Provider: Carlos Barajas Primary Care Provider: Geoff Perez Chi Instructions Additional Instructions / Restrictions: Use your albuterol rescue inhaler every 4 hours while awake for the next 2-3 days to allow time for the steroids to work. Recommend 3-4 puff of the albuterol each time. Discharge Orders/Prescriptions Prescriptions: New prednisone 20 mg Tablet 40 mg PO BREAKFAST 7 Days Qty: 14 0RF Continued budesonide-formoterol [Symbicort] 1 INHALER inhaler 1 inhaler PO DAILY Patient Comments: multivit with min-folic acid [Multivitamin Gummies] 200 mcg Tablet,Chewable 1 tab PO DAILY albuterol sulfate 90 mcg/actuation HFA aerosol inhaler 2 puff inhalation Q4H levothyroxine 50 mcg tablet 50 mcg PO DAILY venlafaxine 37.5 mg tablet 37.5 mg PO DAILY oxybutynin chloride 5 mg tablet 5 mg PO BID Referrals / Follow Up: Geoff Perez Chi, MD [Primary Care Provider] - Within 1 Week Disposition Disposition (needs filled in before D/C Order can be placed): Home, Self Care 04/07/25 0811 Calros Barajas MD CC: Dr. Geoff Perez MD Signed Normal [facility] 12 Lead EKGon 04-06-2025 12 Lead EKG [facility] Cardiovascular Services [address] [place] [address] 12 Lead EKG 04/06/25 1459 MR#: [id number] Acct: [id number] Name: CHRIS LARSEN Rep #: [id number] : [id number] From: Wayne Ritter MD Attending Dr: Dr. Carlos Barajas MD Status : DIS [place] Ordering Dr: Shay Simpson DO Date: 04/06/25 Location: [facility] Sex: F C Admitted: 04/06/25 Test Reason : SOB Blood Pressure : */* mmHG Vent. Rate : 108 BPM Atrial Rate : 108 BPM P-R Int : 136 ms QRS Dur : 90 ms QT Int : 352 ms P-R-T Axes : 65 93 66 degrees QTcB Int : 471 ms Sinus tachycardia Rightward axis Borderline ECG Confirmed by WAYNE RITTER MD ([id number]), department editor DIOMEDES LAUREN ([id number]) on 04/08/2025 7:42:57 AM Referred By: ES Confirmed By: WAYNE RITTER MD 04/08/25 0742 Date Wayne Ritter MD CC: Dr. Shay Simpson DO; Dr. Carlos Barajas MD; Dr. Geoff Perez MD Signed Normal [facility] Absolute lymphocyte countOrd ered By: Shay Simpson on 04-06-2025 Lymphocytes Auto (Unsp spec) [#/Vol] 1.60 10*3/uL 0.83-4.51 [facility] Absolute neutrophil countOrd ered By: Shay Simpson on 04-06-2025 Neutrophils (Bld) [#/Vol] 4.5 10*3/uL 2.0-7.7 [facility] Anion gap in Serum or Plasma Ordered By: Shay Simpson on 04-06-2025 Anion gap [Moles/Vol] 11 mmol/L - [facility] Automated blood erythrocyte countOrdered By: Shay Simpson on 04-06-2025 RBC (Bld) [#/Vol] 5.30 10*6/uL Normal 4.2-5.4 [facility] Comment on above: Performed By: #### L 501.9520, L500.4100, L100.0100, L500.4050, L506.1001 #### [facility] [address] [place], [address] Automated blood hematocrit ( percentage)Ordered By: Shay Simpson on 04-06-2025 Hematocrit (Bld) [Volume fraction] 44.9 % Normal 37-47 [facility] Comment on above: Performed By: #### L 501.9520, L500.4100, L100.0100, L500.4050, L506.1001 #### [facility] [address] [place], [address] Automated lymphocyte count a s percentage of total leukocytesOrdered By: Shay Simpson on 04-06-2025 Lymphocytes/100 WBC Auto (Unsp spec) 20.6 % 19-41 [facility] BUN/creatinine ratioOrdered By: Shay Tatiana on 04-06-2025 Urea nitrogen/Creatinine [Mass ratio] 11.7 mg/mg 10- [facility] Basic Metabolic Profile (BMP )on 04-06-2025 BUN/CRE 11.7 RATIO Normal - [facility] Comment on above: Performed By: #### L 501.9520, L500.4100, L100.0100, L500.4050, L506.1001 #### [facility] [address] [place], [address] ECRCL 77.95 ml/min Normal 50-250 [facility] Comment on above: Performed By: #### L 501.9520, L500.4100, L100.0100, L500.4050, L506.1001 #### [facility] [address] [place], [address] GAP 11 Normal - [facility] Comment on above: Performed By: #### L 501.9520, L500.4100, L100.0100, L500.4050, L506.1001 #### [facility] [address] [place], [address] Potassium [Moles/Vol] 3.9 mmol/L Normal 3.3-5.1 [facility] Comment on above: Performed By: #### L 501.9520, L500.4100, L100.0100, L500.4050, L506.1001 #### [facility] [address] [place], [address] Basophil percentageOrdered B y: Shay Tatiana on 04-06-2025 Basophils/100 WBC (Bld) 0.8 % Normal 0-1 [facility] Comment on above: Performed By: #### L 501.9520, L500.4100, L100.0100, L500.4050, L506.1001 #### [facility] [address] [place], [address] CBC W/Diff, Automatedon 06-10 27-2024 Absolute Lymph 1.60 X10 3/uL Normal 0.83-4.51 [facility] Comment on above: Performed By: #### L 501.9520, L500.4100, L100.0100, L500.4050, L506.1001 #### [facility] [address] [place], [address] Absolute Neut 4.5 X10 3/uL Normal 2.0-7.7 [facility] Comment on above: Performed By: #### L 501.9520, L500.4100, L100.0100, L500.4050, L506.1001 #### [facility] [address] [facility] [address] [place], [address] IG% 0.400 Normal 0.0-0.9 [facility] Comment on above: Result Comment: IG% - Immature Granulocytes (promyelocytes, myelocytes and metamyelocytes) > 1% indicates that a LEFT SHIFT is Present. Performed By: #### L 501.9520, L500.4100, L100.0100, L500.4050, L506.1001 #### [facility] [address] [place], [address] Lymphocytes/100 WBC (Bld) 20.6 % Normal 19-41 [facility] Comment on above: Performed By: #### L 501.9520, L500.4100, L100.0100, L500.4050, L506.1001 #### [facility] [address] [place], [address] Nucleated RBC (Bld) [#/Vol] 0 10*3/uL Normal 0-5 [facility] Comment on above: Performed By: #### L 501.9520, L500.4100, L100.0100, L500.4050, L506.1001 #### [facility] [address] [place], [address] RDW SD 41.7 fl Normal 35.1-43.9 [facility] Comment on above: Performed By: #### L 501.9520, L500.4100, L100.0100, L500.4050, L506.1001 #### [facility] [address] [place], [address] Carbon dioxide, total [Moles /volume] in Central venous bloodOrdered By: Shay Simpson on 04-06-2025 CO2 [Moles/Vol] 25.7 mmol/L Normal 21.0-32.0 [facility] Comment on above: Performed By: #### L 501.9520, L500.4100, L100.0100, L500.4050, L506.1001 #### [facility] [address] [place], [address] Chest 1 View (Portable)on Chest 1 View (Portable) [facility] Imaging Services [address] [place] [place] [address] Chest 1 View (Portable) MR#: [id number] Acct: [id number] Name: CHRIS LARSEN Rep #: [id number] : 1955 F 70 From: Alejandra Hemphill nd, MD PCP: Dr. Geoff Perez MD Status: REG ER Study: Chest 1 View (Portable) Date of Exam: 04/06/25 Exam# [id number] Ordering Dr: Shay Simpson DO PROCEDURE: CHEST 1 VIEW (PORTABLE) [...] (Portable) IMPRESSION: No Acute Findings. Reading Location: [id number] CC: Dr. Shay Simpson DO; Dr. Geoff Perez MD Home Health Outreach Coordinator: Signed Normal [facility] Chloride assayOrdered By: Kevin Simpson on 04-06-2025 Chloride [Moles/Vol] 104 mmol/L Normal 98-108 [facility] Comment on above: Performed By: #### L 501.9520, L500.4100, L100.0100, L500.4050, L506.1001 #### [facility] [address] [facility] [place], [place], [address] Emergency Department Summary on 04-06-2025 Emergency Department Summary [facility] Medical Records Department [address] [place] [address] Emergency Department Summary 04/06/25 MR#: [id number] Acct: [id number] Name: CHRIS LARSEN Rep #: [id number] : 1955 70 From: Shay Simpson DO PCP: Dr. Geoff Perez MD Status:ADM [facility] Location: [place] [address] HPI History of Present Illness Chief Complaint: Shortness of Breath Informant: patient and spouse/S.O. Narrative Narrative: 70-year-old female presenting to the emergency room by private vehicle with a chief complaint of shortness of breath. Patient notes a history of asthma. She states that over the past several days she has had a progressive worsening shortness of breath. She had to come home from work early on Monday. states he tried to get her to come to the emergency department yesterday. Today states that today she was noticeably more short of breath. Nursing notes a pulse ox of 83% on room air. She does not wear home oxygen. She uses Symbicort and has a rescue inhaler of albuterol. She denies history of CHF. No chest pain. She notes a occasionally productive cough. No fever or chills. No diarrhea or vomiting. No significant rhinorrhea. She states she has never had to be hospitalized for her asthma. She is a non-smoker. [facility] Medical History Wears glasses Cancer Post-menopausal Depression Non-smoker Asthma Home Medications ???Medication ???Instructions ???Recorded ???Last Taken ???Type budesonide-formoterol HFA 160 1 inhaler PO DAILY 08/07/15 Unknow n History mcg-4.5 mcg/actuation aerosol inhaler (Symbicort) multivitamin with minerals-folic 1 tab PO DAILY 04/17/23 Unknown Hi story acid 200 mcg chewable tablet (Multivitamin Gummies) albuterol sulfate 90 mcg/actuation 2 puff inhalation Q4H 04/06/25 U nknown History aerosol inhaler levothyroxine 50 mcg tablet 50 mcg PO DAILY 04/06/25 Unknown H istory oxybutynin chloride 5 mg tablet 5 mg PO BID 04/06/25 Unknown Histo ry venlafaxine 37.5 mg tablet 37.5 mg PO DAILY 04/06/25 Unknown History Allergy/AdvReac Type Severity Reaction Status Date / Time cat dander Allergy dyspnea Verified 04/06/25 14:46 Surgical History Previous section Social History Smoking Status: Former smoker ROS ROS ED Constitutional Constitutional ED: Denies chills, fever(s), sweats or weight loss Eyes Eyes: Denies change in vision or diplopia ENT ENT ED: Denies ear pain, rhinorrhea or sore throat Cardiovascular Cardiovascular: Denies chest pain, orthopnea, palpitations or racing heartbeat Respiratory/Chest Respiratory/Chest: Reports cough, dyspnea, dyspnea on exertion and sputum; Denies orthopnea Gastrointestinal Gastrointestinal: Denies abdominal pain, diarrhea, nausea or vomiting Genitourinary Genitourinary ED: Denies dysuria, hematuria or urinary frequency Musculoskeletal Musculoskeletal: Denies arthralgias or myalgias Integumentary Denies abscess or rash Neurologic Neurologic: Denies headache(s), paresthesias or weakness Psychiatric Psychiatric: Denies anxiety, depression, suicidal ideation or suicidal thoughts Endocrine Endocrinology: Denies polydipsia, polyphagia or polyuria Allergic/Immunologic Allergic/Immunologic ED: Denies mouth swelling, tongue swelling or urticaria EXAM Physical Exam Const Vital Signs: 04/06/25 14:43 04/06/25 14:46 04/06/25 [...] 2 04/06/25 17:00 04/06/25 18:00 04/06/25 18:14 Tem (more content not included)... Normal [facility] Eosinophil percentageOrdered By: Shay Simpson on 04-06-2025 Eosinophils/100 WBC (Bld) 8.2 % High 0-5 [facility] Comment on above: Performed By: #### L 501.9520, L500.4100, L100.0100, L500.4050, L506.1001 #### [facility] [address] [facility] [place], [address] Erythrocyte distribution wid th ratioOrdered By: Shay Simpson on 04-06-2025 Erythrocyte distribution width (RBC) [Ratio] 13.5 % Normal 11.6-14.6 [facility] Comment on above: Performed By: #### L 501.9520, L500.4100, L100.0100, L500.4050, L506.1001 #### [facility] [address] [place], [address] Erythrocyte distribution wid th standard deviationOrdered By: Shay Simpson on 04-06-2025 Erythrocyte distribution width (RBC) [Ratio] 41.7 fl 35.1-43.9 [facility] Glomerular filtration rate ( GFR) estimation/1.73 sq m using serum, plasma, or whole bOrdered By: Shay Simpson on 04-06-2025 GFR/1.73 sq M.predicted among non-blacks MDRD (S/P/Bld) [Vol rate/Area] 94 mL/min/{1.73_m2} Normal >60 [facility] Comment on above: mL/min/1.73m2 CKD-EP I Creatinine Equation (2020) Result Comment: mL/m in/1.73m2 CKD-EPI Creatinine Equation (2020) Performed By: #### L 501.9520, L500.4100, L100.0100, L500.4050, L506.1001 #### [facility] [address] [place], [address] H AND P Exam - Hospitaliston 04-06-2025 H&P Exam - Hospitalist [facility] Medical Records Department [address] [place] [address] H P Exam - Hospitalist 04/06/25 1843 MR#: [id number] Acct: [id number] Name: CHRIS LARSEN Rep #: [id number] : 1955 70 From: Carlos Barajas MD PCP: Dr. Geoff Perez MD Status:[facility] - General General Date of Admission: [...] however after couple breathing treatments and a dose of steroids she is 93% on room air however she was hypoxic into the 80s with ambulation necessitating observation overnight. Initial troponin was 8, EKG is nonischemic and no significant medical history to have concerns for any cardiac etiology especially given the clinical findings. [facility] Medical History Wears glasses Cancer Post-menopausal Depression Non-smoker Asthma Home Medications ???Medication ???Instructions ???Recorded ???Last Taken ???Type budesonide-formoterol HFA 160 1 inhaler PO DAILY 08/07/15 Unknow n History mcg-4.5 mcg/actuation aerosol inhaler (Symbicort) multivitamin with minerals-folic 1 tab PO DAILY 04/17/23 Unknown Hi story acid 200 mcg chewable tablet (Multivitamin Gummies) albuterol sulfate 90 mcg/actuation 2 puff inhalation Q4H 04/06/25 U nknown History aerosol inhaler levothyroxine 50 mcg tablet 50 mcg PO DAILY 04/06/25 Unknown H istory oxybutynin chloride 5 mg tablet 5 mg PO BID 04/06/25 Unknown Histo ry venlafaxine 37.5 mg tablet 37.5 mg PO DAILY 04/06/25 Unknown History Allergy/AdvReac Type Severity Reaction Status Date [...] Pulse Ox 94 97 93 Oxygen Delivery Me (more content not included)... Normal [facility] Hemoglobin measurementOrdere d By: Shay Simpson on 04-06-2025 Hemoglobin (Bld) [Mass/Vol] 15.4 g/dL High 12.0-15.0 [facility] Comment on above: Performed By: #### L 501.5549, L500.4100, L100.0100, L500.4050, L506.1001 #### [facility] [address] [place], [address] Immature granulocytes/100 WB C Auto (Bld)Ordered By: Shay Simpson on 04-06-2025 Immature granulocytes/100 WBC (Bld) 0.400 % 0.0-0.9 [facility] Comment on above: IG% - Immature Granu locytes (promyelocytes, myelocytes and metamyelocytes) > 1% indicates that a LEFT SHIFT is Present. Influenza virus A and B and SARS-CoV-2 (COVID-19) and Respiratory syncytial virus RNAOrdered By: Shay Simpson on 04-06-2025 SARS-CoV-2 (COVID-19) RNA MAVERICK+probe Ql (Unsp spec) [facility] L499.0042on 04-06-2025 Trop T High Sen 7 ng/L Normal <=14 [facility] Comment on above: Performed By: #### L 501.9520, L500.4100, L100.0100, L500.4050, L506.1001 #### [facility] [address] [place], [address] L499.0043on 04-06-2025 Trop T High Sen 7 ng/L Normal <=14 [facility] Comment on above: Performed By: #### L 499.0043 #### [facility] [address] [place], [address] L501.4021on 04-06-2025 Trop T High Sen 8 ng/L Normal <=14 [facility] Comment on above: Performed By: #### L 501.9520, L500.4100, L100.0100, L500.4050, L506.1001 #### [facility] [address] [place], [address] M100.678on 04-06-2025 M100.678 Pending SARS-CoV-2 (COVID 19) Negative INFLUENZA A Negative INFLUENZA B Negative RSV PCR Negative Normal [facility] Comment on above: Performed By: #### L 501.9520, L500.4100, L100.0100, L500.4050, L506.1001 #### [facility] [address] [place], [address] MCV (mean corpuscular volume ) determinationOrdered By: Shay Simpson on 04-06-2025 MCV (RBC) [Entitic vol] 84.7 fL Normal 81-99 [facility] Comment on above: Performed By: #### L 501.9520, L500.4100, L100.0100, L500.4050, L506.1001 #### [facility] [address] [place], [address] Mean corpuscular hemoglobin (MCH) determinationOrdered By: Shay Simpson on 04-06-2025 MCH (RBC) [Entitic mass] 29.1 pg Normal 27.0-32.0 [facility] Comment on above: Performed By: #### L 501.9520, L500.4100, L100.0100, L500.4050, L506.1001 #### [facility] [address] [place], [address] Mean corpuscular hemoglobin concentration (MCHC) determinationOrdered By: Shay Simpson on 04-06-2025 MCHC (RBC) [Mass/Vol] 34.3 g/dL Normal 32-36 [facility] Comment on above: Performed By: #### L 501.9520, L500.4100, L100.0100, L500.4050, L506.1001 #### [facility] [address] [place], [place], [address] Mean platelet volume determi nationOrdered By: Shay Simpson on 04-06-2025 Platelet mean volume (Bld) [Entitic vol] 8.9 fL Normal 6.2-12.0 [facility] Comment on above: Performed By: #### L 501.9520, L500.4100, L100.0100, L500.4050, L506.1001 #### [facility] [address] [place], [address] Monocyte percentageOrdered B y: Shay Simpson on 04-06-2025 Monocytes/100 WBC (Bld) 12.2 % High 0-10 [facility] Comment on above: Performed By: #### L 501.9520, L500.4100, L100.0100, L500.4050, L506.1001 #### [facility] [address] [place], [address] Neutrophil percentageOrdered By: Shay Simpson on 04-06-2025 Neutrophils/100 WBC (Bld) 57.8 % Normal 47-70 [facility] Comment on above: Performed By: #### L 501.9520, L500.4100, L100.0100, L500.4050, L506.1001 #### [facility] [address] [place], [address] Nucleated red blood cell per centageOrdered By: Shay Simpson on 04-06-2025 Nucleated RBC/100 WBC (Bld) [Ratio] 0 % 0-5 [facility] Platelet countOrdered By: Kevin Simpson on 04-06-2025 Platelets (Bld) [#/Vol] 234 10*3/uL Normal 150-450 [facility] Comment on above: Performed By: #### L 501.9520, L500.4100, L100.0100, L500.4050, L506.1001 #### [facility] [address] [place], [address] Potassium measurement (mass/ volume)Ordered By: Shay Simpson on 04-06-2025 Potassium (Unsp spec) [Mass/Vol] 3.9 mmol/L 3.3-5.1 [facility] Serum creatinine measurement (mass/volume)Ordered By: Shay Simpson on 04-06-2025 Creatinine [Mass/Vol] 0.68 mg/dL Low 0.70-1.20 [facility] Comment on above: Performed By: #### L 501.9520, L500.4100, L100.0100, L500.4050, L506.1001 #### [facility] [address] [place], [address] Serum glucose measurement (m ass/volume)Ordered By: Shay Simpson on 04-06-2025 Glucose [Mass/Vol] 121 mg/dL High 70-99 [facility] Comment on above: Performed By: #### L 501.9520, L500.4100, L100.0100, L500.4050, L506.1001 #### [facility] [address] [facility] [address] [place], [place], [id number] (156) Serum or plasma calcium manoj urement (mass/volume)Ordered By: Shay Simpson on 04-06-2025 Calcium [Mass/Vol] 9.4 mg/dL Normal 7.6-11.0 [facility] Comment on above: Performed By: #### L 501.9520, L500.4100, L100.0100, L500.4050, L506.1001 #### [facility] [address] [place], [address] Serum or plasma urea nitroge n measurement (mass/volume)Ordered By: Shay Simpson on 04-06-2025 Urea nitrogen [Mass/Vol] 8 mg/dL Normal 4-19 [facility] Comment on above: Performed By: #### L 501.9520, L500.4100, L100.0100, L500.4050, L506.1001 #### [facility] [address] [place], [address] Sodium levelOrdered By: El Simpson on 04-06-2025 Sodium [Moles/Vol] 141 mmol/L Normal 133-145 [facility] Comment on above: Performed By: #### L 501.9520, L500.4100, L100.0100, L500.4050, L506.1001 #### [facility] [address] [place], [place], [address] Troponin T.cardiac [Mass/vol ume] in Serum or Plasma by High sensitivity methodOrdered By: Shay Simpson on 04-06-2025 Troponin T.cardiac High sensitivity method [Mass/Vol] 7 ng/L <14 [facility] Troponin T.cardiac High sensitivity method [Mass/Vol] 7 ng/L <14 [facility] Troponin T.cardiac High sensitivity method [Mass/Vol] 8 ng/L <14 [facility] White blood cell (WBC) count Ordered By: Shay Simpson on 04-06-2025 WBC (Bld) [#/Vol] 7.8 10*3/uL Normal 4.4-11.0 [facility] Comment on above: Performed By: #### L 501.9520, L500.4100, L100.0100, L500.4050, L506.1001 #### [facility] [address] [place], [address] Absolute lymphocyte countOrd ered By: Geoff Perez on 03-18-2025 Lymphocytes Auto (Unsp spec) [#/Vol] 1.10 10*3/uL 0.83-4.51 [facility] Absolute neutrophil countOrd ered By: Geoff Perez on 03-18-2025 Neutrophils (Bld) [#/Vol] 4.6 10*3/uL 2.0-7.7 [facility] Anion gap in Serum or Plasma Ordered By: Geoff Perez on 03-18-2025 Anion gap [Moles/Vol] 12 mmol/L 5-15 [facility] Automated lymphocyte count a s percentage of total leukocytesOrdered By: Geoff Perez on 03-18-2025 Lymphocytes/100 WBC Auto (Unsp spec) 16.2 % Low 19-41 [facility] BUN/creatinine ratioOrdered By: Geoff Perez on 03-18-2025 Urea nitrogen/Creatinine [Mass ratio] 11.2 mg/mg 10- [facility] Basic Metabolic Profile (BMP )on 03-18-2025 BUN/CRE 11.2 RATIO Normal - [facility] Comment on above: Performed By: #### L 501.9520, L500.4100, L100.0100, L500.4050, L506.1001 #### [facility] [address] [place], [address] Calcium [Mass/Vol] 9.2 mg/dL Normal 7.6-11.0 [facility] Comment on above: Performed By: #### L 501.9520, L500.4100, L100.0100, L500.4050, L506.1001 #### [facility] [address] [place], [address] Chloride [Moles/Vol] 106 mmol/L Normal 98-108 [facility] Comment on above: Performed By: #### L 501.9520, L500.4100, L100.0100, L500.4050, L506.1001 #### [facility] [address] [place], [address] CO2 [Moles/Vol] 23.1 mmol/L Normal 21.0-32.0 [facility] Comment on above: Performed By: #### L 501.9520, L500.4100, L100.0100, L500.4050, L506.1001 #### [facility] [address] [place], [address] Creatinine [Mass/Vol] 0.69 mg/dL Low 0.70-1.20 [facility] Comment on above: Performed By: #### L 501.9520, L500.4100, L100.0100, L500.4050, L506.1001 #### [facility] [address] [place], [address] GAP 12 Normal 5-15 [facility] Comment on above: Performed By: #### L 501.9520, L500.4100, L100.0100, L500.4050, L506.1001 #### [facility] [address] [place], [address] GFR/1.73 sq M.predicted among non-blacks MDRD (S/P/Bld) [Vol rate/Area] 94 mL/min/{1.73_m2} Normal >60 [facility] Comment on above: Result Comment: mL/m in/1.73m2 CKD-EPI Creatinine Equation (2020) Performed By: #### L 501.9520, L500.4100, L100.0100, L500.4050, L506.1001 #### [facility] [address] [place], [address] Glucose [Mass/Vol] 101 mg/dL High 70-99 [facility] Comment on above: Performed By: #### L 501.9520, L500.4100, L100.0100, L500.4050, L506.1001 #### [facility] [address] [place], [address] Potassium [Moles/Vol] 4.1 mmol/L Normal 3.3-5.1 [facility] Comment on above: Performed By: #### L 501.9520, L500.4100, L100.0100, L500.4050, L506.1001 #### [facility] [address] [place], [address] Sodium [Moles/Vol] 141 mmol/L Normal 133-145 [facility] Comment on above: Performed By: #### L 501.9520, L500.4100, L100.0100, L500.4050, L506.1001 #### [facility] [address] [place], [address] Urea nitrogen [Mass/Vol] 8 mg/dL Normal 4-19 [facility] Comment on above: Performed By: #### L 501.9520, L500.4100, L100.0100, L500.4050, L506.1001 #### [facility] [address] [place], [address] Basophil percentageOrdered B y: Geoff Perez on 03-18-2025 Basophils/100 WBC (Bld) 0.7 % 0-1 [facility] CBC W/Diff, Automatedon 02-21 Absolute Lymph 1.10 X10 3/uL Normal 0.83-4.51 [facility] Comment on above: Performed By: #### L 501.9520, L500.4100, L100.0100, L500.4050, L506.1001 #### [facility] [address] [place], [address] Absolute Neut 4.6 X10 3/uL Normal 2.0-7.7 [facility] Comment on above: Performed By: #### L 501.9520, L500.4100, L100.0100, L500.4050, L506.1001 #### [facility] [address] [place], [address] Basophils/100 WBC (Bld) 0.7 % Normal 0-1 [facility] Comment on above: Performed By: #### L 501.9520, L500.4100, L100.0100, L500.4050, L506.1001 #### [facility] [address] [place], [address] Eosinophils/100 WBC (Bld) 5.0 % Normal 0-5 [facility] Comment on above: Performed By: #### L 501.9520, L500.4100, L100.0100, L500.4050, L506.1001 #### [facility] [address] [place], [address] Erythrocyte distribution width (RBC) [Ratio] 13.4 % Normal 11.6-14.6 [facility] Comment on above: Performed By: #### L 501.9520, L500.4100, L100.0100, L500.4050, L506.1001 #### [facility] [address] [place], [address] Hematocrit (Bld) [Volume fraction] 43.7 % Normal 37-47 [facility] Comment on above: Performed By: #### L 501.9520, L500.4100, L100.0100, L500.4050, L506.1001 #### [facility] [address] [place], [address] Hemoglobin (Bld) [Mass/Vol] 14.8 g/dL Normal 12.0-15.0 [facility] Comment on above: Performed By: #### L 501.9520, L500.4100, L100.0100, L500.4050, L506.1001 #### [facility] [address] [place], [address] IG% 0.300 Normal 0.0-0.9 [facility] Comment on above: Result Comment: IG% - Immature Granulocytes (promyelocytes, myelocytes and metamyelocytes) > 1% indicates that a LEFT SHIFT is Present. Performed By: #### L 501.9520, L500.4100, L100.0100, L500.4050, L506.1001 #### [facility] [address] [place], [address] Lymphocytes/100 WBC (Bld) 16.2 % Low 19-41 [facility] Comment on above: Performed By: #### L 501.9520, L500.4100, L100.0100, L500.4050, L506.1001 #### [facility] [address] [place], [address] MCH (RBC) [Entitic mass] 29.0 pg Normal 27.0-32.0 [facility] Comment on above: Performed By: #### L 501.9520, L500.4100, L100.0100, L500.4050, L506.1001 #### [facility] [address] [place], [address] MCHC (RBC) [Mass/Vol] 33.9 g/dL Normal 32-36 [facility] Comment on above: Performed By: #### L 501.9520, L500.4100, L100.0100, L500.4050, L506.1001 #### [facility] [address] [place], [address] MCV (RBC) [Entitic vol] 85.5 fL Normal 81-99 [facility] Comment on above: Performed By: #### L 501.9520, L500.4100, L100.0100, L500.4050, L506.1001 #### [facility] [address] [place], [address] Monocytes/100 WBC (Bld) 9.9 % Normal 0-10 [facility] Comment on above: Performed By: #### L 501.9520, L500.4100, L100.0100, L500.4050, L506.1001 #### [facility] [address] [place], [address] Neutrophils/100 WBC (Bld) 67.9 % Normal 47-70 [facility] Comment on above: Performed By: #### L 501.9520, L500.4100, L100.0100, L500.4050, L506.1001 #### [facility] [address] [place], [address] Nucleated RBC (Bld) [#/Vol] 0 10*3/uL Normal 0-5 [facility] Comment on above: Performed By: #### L 501.9520, L500.4100, L100.0100, L500.4050, L506.1001 #### [facility] [address] [place], [address] Platelet mean volume (Bld) [Entitic vol] 8.5 fL Normal 6.2-12.0 [facility] Comment on above: Performed By: #### L 501.9520, L500.4100, L100.0100, L500.4050, L506.1001 #### [facility] [address] [place], [address] Platelets (Bld) [#/Vol] 243 10*3/uL Normal 150-450 [facility] Comment on above: Performed By: #### L 501.9520, L500.4100, L100.0100, L500.4050, L506.1001 #### [facility] [address] [place], [address] RBC (Bld) [#/Vol] 5.11 10*6/uL Normal 4.2-5.4 [facility] Comment on above: Performed By: #### L 501.9520, L500.4100, L100.0100, L500.4050, L506.1001 #### [facility] [address] [place], [address] RDW SD 41.7 fl Normal 35.1-43.9 [facility] Comment on above: Performed By: #### L 501.9520, L500.4100, L100.0100, L500.4050, L506.1001 #### [facility] [address] [place], [address] WBC (Bld) [#/Vol] 6.8 10*3/uL Normal 4.4-11.0 [facility] Comment on above: Performed By: #### L 501.9520, L500.4100, L100.0100, L500.4050, L506.1001 #### [facility] [address] [place], [place], [address] Carbon dioxide, total [Moles /volume] in Central venous bloodOrdered By: Geoff Perez on 03-18-2025 CO2 [Moles/Vol] 23.1 mmol/L 21.0-32.0 [facility] Chest PA and Lateralon 03-18 Chest PA and Lateral [facility] Imaging Services [address] [place] [address] Chest PA and Lateral MR#: [id number] Acct: [id number] Name: CHRIS LARSEN Rep #: [id number] : 1955 F 70 From: Livan Ashraf MD PCP: Dr. Geoff Perez MD Status: REG CLI Study: Chest PA and Lateral Date of Exam: 03/18/25 Exam# [id number] Ordering Dr: Geoff Perez MD PROCEDURE: CHEST PA AND LATERAL 03/18/2025 REASON FOR EXAM: SOB TECHNIQUE: Frontal and lateral views of the chest. COMPARISON: 06/07/2023 FINDINGS: The lungs appear clear. The cardiac and mediastinal contours appear within limits. Old appearing right-sided rib fracture deformities. Upper lumbar compression deformity again noted. RAD/Chest PA and Lateral IMPRESSION: No evidence of acute disease. Reading Location: [id number] CC: Dr. Geoff Perez MD Home Health Outreach Coordinator: Signed Normal [facility] Chloride assayOrdered By: Gume Perez on 03-18-2025 Chloride [Moles/Vol] 106 mmol/L 98-108 [facility] D-Dimer Quantitative (DVT/PE )on 03-18-2025 D-DIMER QUANT 0.38 FEU/ug/m Normal 0.27-0.49 [facility] Comment on above: Result Comment: NORM AL D-Dimer level (<0.50) indicates no DVT or PE. Performed By: #### L 501.9520, L500.4100, L100.0100, L500.4050, L506.1001 #### [facility] [place], [address] Eosinophil percentageOrdered By: [facility] on 03-18-2025 Eosinophils/100 WBC (Bld) 5.0 % 0-5 [facility] Erythrocyte distribution wid th ratioOrdered By: [facility] on 03-18-2025 Erythrocyte distribution width (RBC) [Ratio] 13.4 % 11.6-14.6 [facility] Erythrocyte distribution wid th standard deviationOrdered By: [facility] on 03-18-2025 Erythrocyte distribution width (RBC) [Ratio] 41.7 fl 35.1-43.9 [facility] Glomerular filtration rate ( GFR) estimation/1.73 sq m using serum, plasma, or whole bOrdered By: [facility] on 03-18-2025 GFR/1.73 sq M.predicted among non-blacks MDRD (S/P/Bld) [Vol rate/Area] 94 mL/min/{1.73_m2} >60 [facility] Comment on above: mL/min/1.73m2 CKD-EP I Creatinine Equation (2020) Hematocrit Auto (Bld) [Volum e fraction]Ordered By: [facility] 03-18-2025 Hematocrit (Bld) [Volume fraction] 43.7 % 37-47 [facility] Hemoglobin measurementOrdere d By: [facility] 03-18-2025 Hemoglobin (Bld) [Mass/Vol] 14.8 g/dL 12.0-15.0 [facility] Immature granulocytes/100 WB C Auto (Bld)[facility] Immature granulocytes/100 WBC (Bld) 0.300 % 0.0-0.9 [facility] Comment on above: IG% - Immature Granu locytes (promyelocytes, myelocytes and metamyelocytes) > 1% indicates that a LEFT SHIFT is Present. Influenza virus A and B and SARS-CoV-2 (COVID-19) and Respiratory syncytial virus RNAOrdered By: Geoff Chris on 03-18-2025 SARS-CoV-2 (COVID-19) RNA MAVERICK+probe Ql (Unsp spec) [facility] M100.678on 03-18-2025 M100.678 Pending SARS-CoV-2 (COVID 19) Negative INFLUENZA A Negative INFLUENZA B Negative RSV PCR Negative Normal [facility] Comment on above: Performed By: #### L 501.9520, L500.4100, L100.0100, L500.4050, L506.1001 #### [facility] [address] [place], [address] MCV (mean corpuscular volume ) determinationOrdered By: Geoff Perez on 03-18-2025 MCV (RBC) [Entitic vol] 85.5 fL 81-99 [facility] Mean corpuscular hemoglobin (MCH) determinationOrdered By: Geoff Perez on 03-18-2025 MCH (RBC) [Entitic mass] 29.0 pg 27.0-32.0 [facility] Mean corpuscular hemoglobin concentration (MCHC) determinationOrdered By: Geoff Perez on 03-18-2025 MCHC (RBC) [Mass/Vol] 33.9 g/dL 32-36 [facility] Mean platelet volume determi nationOrdered By: Geoff Perez on 03-18-2025 Platelet mean volume (Bld) [Entitic vol] 8.5 fL 6.2-12.0 [facility] Monocyte percentageOrdered B y: Geoff Perez on 03-18-2025 Monocytes/100 WBC (Bld) 9.9 % 0-10 [facility] Neutrophil percentageOrdered By: Geoff Perez on 03-18-2025 Neutrophils/100 WBC (Bld) 67.9 % 47-70 [facility] Nucleated red blood cell per centageOrdered By: Geoff Perez on 03-18-2025 Nucleated RBC/100 WBC (Bld) [Ratio] 0 % 0-5 [facility] Platelet countOrdered By: Gume Perez on 03-18-2025 Platelets (Bld) [#/Vol] 243 10*3/uL 150-450 [facility] Potassium measurement (mass/ volume)Ordered By: Geoff Perez on 03-18-2025 Potassium (Unsp spec) [Mass/Vol] 4.1 mmol/L 3.3-5.1 [facility] RBC Auto (Bld) [#/Vol]Ordere d By: Geoff Perez on 03-18-2025 RBC (Bld) [#/Vol] 5.11 10*6/uL 4.2-5.4 [facility] Serum creatinine measurement (mass/volume)Ordered By: Geoff Perez on 03-18-2025 Creatinine [Mass/Vol] 0.69 mg/dL Low 0.70-1.20 [facility] Serum glucose measurement (m ass/volume)Ordered By: Geoff Perez on 03-18-2025 Glucose [Mass/Vol] 101 mg/dL High 70-99 [facility] Serum or plasma calcium manoj urement (mass/volume)Ordered By: Geoff Perez on 03-18-2025 Calcium [Mass/Vol] 9.2 mg/dL 7.6-11.0 [facility] Serum or plasma urea nitroge n measurement (mass/volume)Ordered By: Geoff Perez on 03-18-2025 Urea nitrogen [Mass/Vol] 8 mg/dL 4-19 [facility] Sodium levelOrdered By: Geoff Perez on 03-18-2025 Sodium [Moles/Vol] 141 mmol/L 133-145 [facility] White blood cell (WBC) count Ordered By: Geoff Perez on 03-18-2025 WBC (Bld) [#/Vol] 6.8 10*3/uL 4.4-11.0 [facility] Influenza virus A and B and SARS-CoV-2 (COVID-19) and Respiratory syncytial virus RNAOrdered By: Geoff Perez on 02-21-2025 SARS-CoV-2 (COVID-19) RNA MAVERICK+probe Ql (Unsp spec) [facility] M100.678on 02-21-2025 M100.678 Pending SARS-CoV-2 (COVID 19) Negative INFLUENZA A Negative INFLUENZA B Negative RSV PCR Negative Normal [facility] Comment on above: Performed By: #### L 501.9520, L500.4100, L100.0100, L500.4050, L506.1001 #### [facility] [address] [place], [address] Respiratory Cultureon 2024 RESPC GRAM STAIN Mixed normal respiratory nikolas. No Streptococcus pneumoniae, beta-hemolytic Streptococcus or Staphylococcus aureus isolated. Normal [facility] Comment on above: Performed By: #### L 501.9520, L500.4100, L100.0100, L500.4050, L506.1001 #### [facility] [address] [place], [address] Gram Stainon 01-31-2025 GS GRAM STAIN Acceptable Specimen? Yes (<25 Epithelial cells per/lpf) Gram Stain 1+ Gram positive cocci 1+ Epithelial cells 1+ White Blood Cells Normal [facility] Comment on above: Performed By: #### L 501.9520, L500.4100, L100.0100, L500.4050, L506.1001 #### [facility] [address] [place], [address] Gram stainOrdered By: Geoff asif on 01-31-2025 Microscopic observation Gram stain Nom (Unsp spec) [facility] Microbial respiratory cultur eOrdered By: Geoff Perez on 01-31-2025 Microorganism identified Cx Nom (Unsp spec) or Staphylococcus aureus isolated. [facility] Influenza virus A and B and SARS-CoV-2 (COVID-19) and Respiratory syncytial virus RNAOrdered By: Geoff Perez on 01-28-2025 SARS-CoV-2 (COVID-19) RNA MAVERICK+probe Ql (Unsp spec) [facility] M100.678on 01-28-2025 M100.678 Pending SARS-CoV-2 (COVID 19) Negative INFLUENZA A Negative INFLUENZA B Negative RSV PCR Negative Normal [facility] Comment on above: Performed By: #### L 501.9520, L500.4100, L100.0100, L500.4050, L506.1001 #### [facility] [address] [place], [address] M8200.1000on 01-28-2025 M8200.1000 Normal Reference Ran ge = Negative MRSA DNA Nose Ql MAVERICK+probe GeneXpert Instrument, PCR method MRSA PCR MRSA NEGATIVE Normal [facility] Comment on above: Performed By: #### L 501.9520, L500.4100, L100.0100, L500.4050, L506.1001 #### [facility] [address] [facility] [place], [place], [id number] MRSA DNA MAVERICK+probe Ql (Nose) Ordered By: Geoff Perez on 01-28-2025 MRSA (PCR) [facility] Nasal methicillin resistant Staphylococcus aureus (MRSA) DNA detection by PCROrdered By: Geoff Perez on 01-28-2025 MRSA DNA MAVERICK+probe Ql (Nose) [facility] CTA Chest W/WO Contraston CTA Chest W/WO Contrast [facility] Imaging Services [address] [place], [place] [address] CTA Chest W/WO Contrast MR#: [id number] Acct: [id number] Name: CHRIS LARSEN Rep #: [id number] : 1955 F 69 From: Glen Hyde MD PCP: Dr. Geoff Perez MD Status: REG CLI Study: CTA Chest W/WO Contrast Date of Exam: 01/07/25 Exam# [id number] Ordering Dr: Geoff Perez MD EXAM: CT [...] evaluated due to suboptimal opacification. Reading Location: [facility] CC: Dr. Geoff Perez MD Home Health Outreach Coordinator: Signed Normal [facility] D-Dimer Quantitative (DVT/PE )on 01-06-2025 D-DIMER QUANT 0.50 FEU/ug/m High 0.27-0.49 [facility] Comment on above: Order Comment: CRITI REBEKAH VALUE CALLED TO JYOTI GARCIA01/06/25 1606 Silvana Giron.RESULTS READ BACK BY SAME. Result Comment: D-Di salma ELEVATED (>0.49): Additional studies and clinical assessments are indicated to conclude diagnosis of: Deep Vein Thrombosis (DVT) or Pulmonary Embolism (PE) Performed By: #### L 501.9520, L500.4100, L100.0100, L500.4050, L506.1001 #### [facility] [address] [place], [place], [id number] D-dimer measurement for deep venous thrombosisOrdered By: Geoff Perez on 01-06-2025 D-Dimer Quantitative (PE/DVT) 0.50 FEU/ug/m High 0.27-0.49 [facility] Comment on above: D-Dimer ELEVATED (>0 .49): Additional studies and clinicalassessments are indicated to conclude diagnosis of:Deep Vein Thrombosis (DVT) or Pulmonary Embolism (PE) Influenza virus A and B and SARS-CoV-2 (COVID-19) and Respiratory syncytial virus RNAOrdered By: Geoff Perez on 01-06-2025 SARS-CoV-2 (COVID-19) RNA MAVERICK+probe Ql (Unsp spec) [facility] M100.678on 01-06-2025 M100.678 Pending SARS-CoV-2 (COVID 19) Negative INFLUENZA A Negative INFLUENZA B Negative RSV PCR Negative Normal [facility] Comment on above: Performed By: #### L 501.9520, L500.4100, L100.0100, L500.4050, L506.1001 #### [facility] [address] [facility] [place], [address] Influenza virus A and B and SARS-CoV-2 (COVID-19) and Respiratory syncytial virus RNAOrdered By: Geoff Perez on 12-17-2024 SARS-CoV-2 (COVID-19) RNA MAVERICK+probe Ql (Unsp spec) [facility] M100.678on 12-17-2024 M100.678 SARS-CoV-2 (COVID 19 ) Negative INFLUENZA A Negative INFLUENZA B Negative RSV PCR Negative Normal [facility] Comment on above: Performed By: #### L 501.9520, L500.4100, L100.0100, L500.4050, L506.1001 #### [facility] [address] [place], [address] 45-FR-Yandats DOrdered By: Zan Perez on 12-03-2024 Vitamin D 25-Hydroxy 30.5 ng/mL [facility] Comment on above: Vitamin D 25(OH) Sta tus Range Deficiency <20 ng/mL (50nmol/L) Insufficiency 20 - 30 ng/mL (50 - 75 nmol/L) Sufficiency 30 - 100 ng/mL (75 - 250 nmol/L) Toxicity >100 ng/mL (>250 nmol/L) Absolute lymphocyte countOrd ered By: Geoff Perez on 12-03-2024 Lymphocytes Auto (Unsp spec) [#/Vol] 1.63 10*3/uL 0.83-4.51 [facility] Absolute neutrophil countOrd ered By: Geoff Perez on 12-03-2024 Neutrophils (Bld) [#/Vol] 5.7 10*3/uL 2.0-7.7 [facility] Albumin to globulin ratioOrd ered By: Geoff Perez on 12-03-2024 Albumin/Globulin [Mass ratio] 1.1 {ratio} 0.9-2.4 [facility] Automated lymphocyte count a s percentage of total leukocytesOrdered By: Geoff Perez on 12-03-2024 Lymphocytes/100 WBC Auto (Unsp spec) 19.6 % - [facility] Basophil percentageOrdered B y: Geoff Chris on 12-03-2024 Basophils/100 WBC (Bld) 0.4 % 0-1 [facility] Bilirubin, totalOrdered By: Geoff Perez on 12-03-2024 Bilirubin [Mass/Vol] 0.60 mg/dL 0.20-1.00 [facility] Comment on above: For patients on eltr ombopag therapy, use of Dimension Hardin TBIL is not recommended. Blood urea nitrogen (BUN)/cr eatinine ratioOrdered By: Geoff Perez on 12-03-2024 Urea nitrogen/Creatinine [Mass ratio] 16.7 mg/mg 10- [facility] CBC W/Diff, Automatedon 11-23 Absolute Lymph 1.63 X10 3/uL Normal 0.83-4.51 [facility] Comment on above: Performed By: #### L 501.9520, L500.4100, L100.0100, L500.4050, L506.1001 #### [facility] [address] [place], [address] Absolute Neut 5.7 X10 3/uL Normal 2.0-7.7 [facility] Comment on above: Performed By: #### L 501.9520, L500.4100, L100.0100, L500.4050, L506.1001 #### [facility] [address] [place], [address] Basophils/100 WBC (Bld) 0.4 % Normal 0-1 [facility] Comment on above: Performed By: #### L 501.9520, L500.4100, L100.0100, L500.4050, L506.1001 #### [facility] [address] [place], [address] Eosinophils/100 WBC (Bld) 2.4 % Normal 0-5 [facility] Comment on above: Performed By: #### L 501.9520, L500.4100, L100.0100, L500.4050, L506.1001 #### [facility] [address] [place], [address] Erythrocyte distribution width (RBC) [Ratio] 13.1 % Normal 11.6-14.6 [facility] Comment on above: Performed By: #### L 501.9520, L500.4100, L100.0100, L500.4050, L506.1001 #### [facility] [address] [place], [address] Hematocrit (Bld) [Volume fraction] 43.7 % Normal 37-47 [facility] Comment on above: Performed By: #### L 501.9520, L500.4100, L100.0100, L500.4050, L506.1001 #### [facility] [address] [place], [address] Hemoglobin (Bld) [Mass/Vol] 14.3 g/dL Normal 12.0-15.0 [facility] Comment on above: Performed By: #### L 501.9520, L500.4100, L100.0100, L500.4050, L506.1001 #### [facility] [address] [place], [address] IG% 0.200 Normal 0.0-0.9 [facility] Comment on above: Result Comment: IG% - Immature Granulocytes (promyelocytes, myelocytes and metamyelocytes) > 1% indicates that a LEFT SHIFT is Present. Performed By: #### L 501.9520, L500.4100, L100.0100, L500.4050, L506.1001 #### [facility] [address] [place], [address] Lymphocytes/100 WBC (Bld) 19.6 % Normal 19-41 [facility] Comment on above: Performed By: #### L 501.9520, L500.4100, L100.0100, L500.4050, L506.1001 #### [facility] [address] [place], [address] MCH (RBC) [Entitic mass] 28.5 pg Normal 27.0-32.0 [facility] Comment on above: Performed By: #### L 501.9520, L500.4100, L100.0100, L500.4050, L506.1001 #### [facility] [address] [place], [address] MCHC (RBC) [Mass/Vol] 32.7 g/dL Normal 32-36 [facility] Comment on above: Performed By: #### L 501.9520, L500.4100, L100.0100, L500.4050, L506.1001 #### [facility] [address] [place], [address] MCV (RBC) [Entitic vol] 87.1 fL Normal 81-99 [facility] Comment on above: Performed By: #### L 501.9520, L500.4100, L100.0100, L500.4050, L506.1001 #### [facility] [address] [place], [address] Monocytes/100 WBC (Bld) 9.0 % Normal 0-10 [facility] Comment on above: Performed By: #### L 501.9520, L500.4100, L100.0100, L500.4050, L506.1001 #### [facility] [address] [place], [address] Neutrophils/100 WBC (Bld) 68.4 % Normal 47-70 [facility] Comment on above: Performed By: #### L 501.9520, L500.4100, L100.0100, L500.4050, L506.1001 #### [facility] [address] [place], [address] Nucleated RBC (Bld) [#/Vol] 0 10*3/uL Normal 0-5 [facility] Comment on above: Performed By: #### L 501.9520, L500.4100, L100.0100, L500.4050, L506.1001 #### [facility] [address] [place], [address] Platelet mean volume (Bld) [Entitic vol] 8.6 fL Normal 6.2-12.0 [facility] Comment on above: Performed By: #### L 501.9520, L500.4100, L100.0100, L500.4050, L506.1001 #### [facility] [address] [place], [address] Platelets (Bld) [#/Vol] 278 10*3/uL Normal 150-450 [facility] Comment on above: Performed By: #### L 501.9520, L500.4100, L100.0100, L500.4050, L506.1001 #### [facility] [address] [place], [address] RBC (Bld) [#/Vol] 5.02 10*6/uL Normal 4.2-5.4 [facility] Comment on above: Performed By: #### L 501.9520, L500.4100, L100.0100, L500.4050, L506.1001 #### [facility] [address] [place], [address] RDW SD 41.1 fl Normal 35.1-43.9 [facility] Comment on above: Performed By: #### L 501.9520, L500.4100, L100.0100, L500.4050, L506.1001 #### [facility] [address] [place], [address] WBC (Bld) [#/Vol] 8.3 10*3/uL Normal 4.4-11.0 [facility] Comment on above: Performed By: #### L 501.9520, L500.4100, L100.0100, L500.4050, L506.1001 #### [facility] [address] [place], [address] Carbon dioxide measurementOr dered By: Geoff Perez on 12-03-2024 CO2 [Moles/Vol] 24.0 mmol/L 21.0-32.0 [facility] Chloride measurementOrdered By: Geoff Perez on 12-03-2024 Chloride [Moles/Vol] 107 mmol/L 98-107 [facility] Comprehensive Metabolic Prof ilon 12-03-2024 Albumin [Mass/Vol] 3.6 g/dL Normal 3.2-5.0 [facility] Comment on above: Performed By: #### L 501.9520, L500.4100, L100.0100, L500.4050, L506.1001 #### [facility] [address] [place], [address] Albumin/Globulin [Mass ratio] 1.1 {ratio} Normal 0.9-2.4 [facility] Comment on above: Performed By: #### L 501.9520, L500.4100, L100.0100, L500.4050, L506.1001 #### [facility] [address] [place], [address] ALK P 92 U/L Normal 45-117 [facility] Comment on above: Performed By: #### L 501.9520, L500.4100, L100.0100, L500.4050, L506.1001 #### [facility] [address] [place], [address] ALT [Catalytic activity/Vol] 20 U/L Normal 13-56 [facility] Comment on above: Performed By: #### L 501.9520, L500.4100, L100.0100, L500.4050, L506.1001 #### [facility] [address] [place], [address] AST [Catalytic activity/Vol] 22 U/L Normal 15-37 [facility] Comment on above: Performed By: #### L 501.9520, L500.4100, L100.0100, L500.4050, L506.1001 #### [facility] [address] [place], [address] Bilirubin [Mass/Vol] 0.60 mg/dL Normal 0.20-1.00 [facility] Comment on above: Result Comment: For patients on eltrombopag therapy, use of Dimension Hardin TBIL is not recommended. Performed By: #### L 501.9520, L500.4100, L100.0100, L500.4050, L506.1001 #### [facility] [address] [place], [address] BUN/CRE 16.7 RATIO Normal 10-20 [facility] Comment on above: Performed By: #### L 501.9520, L500.4100, L100.0100, L500.4050, L506.1001 #### [facility] [address] [place], [address] CA,Total 8.6 mg/dL Normal 8.5-10.1 [facility] Comment on above: Performed By: #### L 501.9520, L500.4100, L100.0100, L500.4050, L506.1001 #### [facility] [address] [place], [address] Chloride [Moles/Vol] 107 mmol/L Normal 98-107 [facility] Comment on above: Performed By: #### L 501.9520, L500.4100, L100.0100, L500.4050, L506.1001 #### [facility] [address] [place], [address] CO2 [Moles/Vol] 24.0 mmol/L Normal 21.0-32.0 [facility] Comment on above: Performed By: #### L 501.9520, L500.4100, L100.0100, L500.4050, L506.1001 #### [facility] [address] [place], [address] Creatinine [Mass/Vol] 0.72 mg/dL Normal 0.55-1.02 [facility] Comment on above: Result Comment: The validity of the calculated GFR GFRAA in patients over 70 years has not been determined. Clinical correlation is essential. Performed By: #### L [id number], L500.4100, L100.0100, L500.4050, L506.1001 #### [facility] [address] [place], [address] EST GFR - AA 104 mL/min Normal >60 [facility] Comment on above: Result Comment: Afri can Iraqi GFR Calc Performed By: #### L [id number], L500.4100, L100.0100, L500.4050, L506.1001 #### [facility] [address] [place], [address] GAP 8 Normal 5-15 [facility] Comment on above: Performed By: #### L [id number], L500.4100, L100.0100, L500.4050, L506.1001 #### [facility] [address] [place], [address] GFR/1.73 sq M.predicted among non-blacks MDRD (S/P/Bld) [Vol rate/Area] 86 mL/min/{1.73_m2} Normal >60 [facility] Comment on above: Result Comment: Non- GFR Calc Performed By: #### L [id number], L500.4100, L100.0100, L500.4050, L506.1001 #### [facility] [address] [place], [address] Globulin (S) [Mass/Vol] 3.4 g/dL Normal 2.2-4.2 [facility] Comment on above: Performed By: #### L [id number], L500.4100, L100.0100, L500.4050, L506.1001 #### [facility] [address] [place], [address] Glucose [Mass/Vol] 89 mg/dL Normal 74-106 [facility] Comment on above: Performed By: #### L [id number], L500.4100, L100.0100, L500.4050, L506.1001 #### [facility] [address] [place], [address] Potassium [Moles/Vol] 4.1 mmol/L Normal 3.5-5.1 [facility] Comment on above: Performed By: #### L [id number], L500.4100, L100.0100, L500.4050, L506.1001 #### [facility] [address] [place], [address] Sodium [Moles/Vol] 138 mmol/L Normal 136-145 [facility] Comment on above: Performed By: #### L [id number], L500.4100, L100.0100, L500.4050, L506.1001 #### [facility] [address] [place], [address] T PROT 7.0 g/dL Normal 6.4-8.2 [facility] Comment on above: Performed By: #### L [id number], L500.4100, L100.0100, L500.4050, L506.1001 #### [facility] [address] [place], [address] Urea nitrogen [Mass/Vol] 12 mg/dL Normal 7-18 [facility] Comment on above: Performed By: #### L [id number], L500.4100, L100.0100, L500.4050, L506.1001 #### [facility] [address] [place], [address] Eosinophil percentageOrdered By: Geoff Perez on 12-03-2024 Eosinophils/100 WBC (Bld) 2.4 % 0-5 [facility] Erythrocyte distribution wid th ratioOrdered By: Geoff Perez on 12-03-2024 Erythrocyte distribution width (RBC) [Ratio] 13.1 % 11.6-14.6 [facility] Erythrocyte distribution wid th standard deviationOrdered By: Geoff Perez on 12-03-2024 Erythrocyte distribution width (RBC) [Entitic vol] 41.1 fL 35.1-43.9 [facility] Erythrocyte distribution width (RBC) [Ratio] 41.1 fl 35.1-43.9 [facility] Estimated glomerular filtrat ion rate (GFR) AmericanOrdered By: Geoff Perez on 12-03-2024 Estimated GFR (MDRD) Amer 104 mL/min >60 [facility] Comment on above: GFR Calc Glomerular filtration rate ( GFR) estimationOrdered By: Geoff Perez 12-03-2024 Estimated GFR (MDRD) Non-Af Amer 86 mL/min >60 [facility] Comment on above: Non- GFR Calc GFR/1.73 sq M.predicted among non-blacks MDRD (S/P/Bld) [Vol rate/Area] 86 mL/min/{1.73_m2} >60 [facility] Comment on above: Non- GFR Calc Glucose measurementOrdered B y: Geoff Perez on 12-03-2024 Glucose [Mass/Vol] 89 mg/dL 74-106 [facility] Hematocrit Auto (Bld) [Volum e fraction]Ordered By: Geoff Perez on 12-03-2024 Hematocrit (Bld) [Volume fraction] 43.7 % 37-47 [facility] Hemoglobin measurementOrdere d By: Geoff Perez on 12-03-2024 Hemoglobin (Bld) [Mass/Vol] 14.3 g/dL 12.0-15.0 [facility] High density lipoprotein (HD L) measurementOrdered By: Geoff Perez on 12-03-2024 Cholesterol in HDL [Mass/Vol] 68 mg/dL >40 [facility] Comment on above: The drugs N-Acetylcy steine and Metamizole may falsely depress this assay. Reference Range HDL <40 mg/dL Low HDL Cholesterol HDL >or= 60 mg/dL High HDL Cholesterol Immature granulocytes/100 WB C Auto (Bld)Ordered By: Geoff Perez on 12-03-2024 Immature granulocytes/100 WBC (Bld) 0.200 % 0.0-0.9 [facility] Comment on above: IG% - Immature Granu locytes (promyelocytes, myelocytes and metamyelocytes) > 1% indicates that a LEFT SHIFT is Present. Laboratory - Chemistry and C hemistry - challengeOrdered By: Geoff Perez on 12-03-2024 AST [Catalytic activity/Vol] 22 U/L 15-37 [facility] Lipid Profileon 12-03-2024 Cholesterol [Mass/Vol] 199 mg/dL Normal [address] [facility] Comment on above: Result Comment: <200 mg/dL Desirable 200-240 mg/dL Borderline >240 mg/dL High Risk Performed By: #### L 501.9520, L500.4100, L100.0100, L500.4050, L506.1001 #### [facility] [address] [place], [address] Cholesterol in HDL [Mass/Vol] 68 mg/dL Normal [facility] Comment on above: Result Comment: The drugs N-Acetylcysteine and Metamizole may falsely depress this assay. Reference Range HDL <40 mg/dL Low HDL Cholesterol HDL >or= 60 mg/dL High HDL Cholesterol Performed By: #### L [id number], L500.4100, L100.0100, L500.4050, L506.1001 #### [facility] [address] [place], [address] Cholesterol in LDL [Mass/Vol] 107 mg/dL Normal 0-130 [facility] Comment on above: Performed By: #### L [id number], L500.4100, L100.0100, L500.4050, L506.1001 #### [facility] [address] [place], [address] Cholesterol in VLDL [Mass/Vol] 24 mg/dL Normal 5-40 [facility] Comment on above: Performed By: #### L [id number], L500.4100, L100.0100, L500.4050, L506.1001 #### [facility] [address] [place], [address] Triglyceride [Mass/Vol] 122 mg/dL Normal [facility] Comment on above: Result Comment: The drugs N-Acetylcysteine and Metamizole may falsely depress this assay. Serum Triglycerides Reference Interval Normal <150 mg/dL Borderline high 150 - 199 mg/dL High 200 - 499 mg/dL Very High > or = 500 mg/dL Performed By: #### L [id number], L500.4100, L100.0100, L500.4050, L506.1001 #### [facility] [address] [place], [address] Low density lipoprotein (LDL ) cholesterol measurementOrdered By: Geoff Perez on 12-03-2024 Cholesterol in LDL [Mass/Vol] 107 mg/dL 0-130 [facility] Lymphocytes Auto (Unsp spec) [#/Vol]Ordered By: Geoff Perez on 12-03-2024 Lymphocytes (Bld) [#/Vol] 1.63 10*3/uL 0.83-4.51 [facility] Lymphocytes/100 WBC Auto (Un sp spec)Ordered By: Geoff Perez on 12-03-2024 Lymphocytes/100 WBC (Bld) 19.6 % 19-41 [facility] MCV (mean corpuscular volume ) determinationOrdered By: Geoff Perez on 12-03-2024 MCV (RBC) [Entitic vol] 87.1 fL 81-99 [facility] Mean corpuscular hemoglobin (MCH) determinationOrdered By: Geoff Perez on 12-03-2024 MCH (RBC) [Entitic mass] 28.5 pg 27.0-32.0 [facility] Mean corpuscular hemoglobin concentration (MCHC) determinationOrdered By: Geoff Perez on 12-03-2024 MCHC (RBC) [Mass/Vol] 32.7 g/dL 32-36 [facility] Mean platelet volume determi nationOrdered By: Geoff Perez on 12-03-2024 Platelet mean volume (Bld) [Entitic vol] 8.6 fL 6.2-12.0 [facility] Monocyte percentageOrdered B y: Geoff Perez on 12-03-2024 Monocytes/100 WBC (Bld) 9.0 % 0-10 [facility] Neutrophil percentageOrdered By: Geoff Perez on 12-03-2024 Neutrophils/100 WBC (Bld) 68.4 % 47-70 [facility] Nucleated red blood cell per centageOrdered By: Geoff Perez on 12-03-2024 Nucleated RBC/100 WBC (Bld) [Ratio] 0 % 0-5 [facility] Platelet countOrdered By: Gume Perez on 12-03-2024 Platelets (Bld) [#/Vol] 278 10*3/uL 150-450 [facility] Potassium measurementOrdered By: Geoff Perez on 12-03-2024 Potassium [Moles/Vol] 4.1 mmol/L 3.5-5.1 [facility] RBC Auto (Bld) [#/Vol]Ordere d By: Geoff Perez on 12-03-2024 RBC (Bld) [#/Vol] 5.02 10*6/uL 4.2-5.4 [facility] Serum anion gap measurementO rdered By: Geoff Perez on 12-03-2024 Anion gap [Moles/Vol] 8 mmol/L 5-15 [facility] Serum globulin measurementOr dered By: Geoff Perez on 12-03-2024 Globulin (S) [Mass/Vol] 3.4 g/dL 2.2-4.2 [facility] Serum or plasma alanine mcbride otransferase (ALT) measurementOrdered By: Geoff Perez 12-03-2024 ALT [Catalytic activity/Vol] 20 U/L 13-56 [facility] Serum or plasma albumin manoj urement (mass/volume)Ordered By: Geoff Perez 12-03-2024 Albumin [Mass/Vol] 3.6 g/dL 3.2-5.0 [facility] Serum or plasma alkaline bertha sphatase measurementOrdered By: Geoff Perez 12-03-2024 ALP [Catalytic activity/Vol] 92 U/L 45-117 [facility] Serum or plasma calcium manoj urement (mass/volume)Ordered By: Geoff Perez 12-03-2024 Calcium [Mass/Vol] 8.6 mg/dL 8.5-10.1 [facility] Serum or plasma cholesterol measurement (mass/volume)Ordered By: Geoff Perez 12-03-2024 Cholesterol [Mass/Vol] 199 mg/dL <[address] [facility] Comment on above: <200 mg/dL Desirable 200-240 mg/dL Borderline >240 mg/dL High Risk Serum or plasma creatinine m easurement (mass/volume)Ordered By: Geoff Perez 12-03-2024 Creatinine [Mass/Vol] 0.72 mg/dL 0.55-1.02 [facility] Comment on above: The validity of the calculated GFR & GFRAA in patients over 70 years has not been determined. Clinical correlation is essential. Serum or plasma thyroid stim ulating hormone (TSH) measurement (units/volume)Ordered By: Geoff Perez 12-03-2024 TSH Qn 2.340 uIU/mL 0.358-3.740 [facility] Serum or plasma urea nitroge n measurement (mass/volume)Ordered By: Geoff Perez 12-03-2024 Urea nitrogen [Mass/Vol] 12 mg/dL 7-18 [facility] Sodium levelOrdered By: Geoff Perez 12-03-2024 Sodium [Moles/Vol] 138 mmol/L 136-145 [facility] TSH QnOrdered By: Geoff Perez o n 12-03-2024 Thyroid Stimulating Hormone (TSH) 2.340 uIU/mL 0.358-3.740 [facility] Thyroid Stim Hormone (TSH)on 12-03-2024 TSH 2.340 uIU/mL Normal 0.358-3.740 [facility] Comment on above: Performed By: #### L [id number], L500.4100, L100.0100, L500.4050, L506.1001 #### [facility] [address] [place], [place], [id number] Total proteinOrdered By: Geoff Perez on 12-03-2024 Protein [Mass/Vol] 7.0 g/dL 6.4-8.2 [facility] Triglycerides measurementOrd ered By: Geoff Perez on 12-03-2024 Triglyceride [Mass/Vol] 122 mg/dL <199 [facility] Comment on above: The drugs N-Acetylcy steine and Metamizole may falsely depress this assay.Serum Triglycerides Reference Interval Normal <150 mg/dL Borderline high 150 - 199 mg/dL High 200 - 499 mg/dL Very High > or = 500 mg/dL Very low density lipoprotein (VLDL) cholesterol measurementOrdered By: Geoff Perez on 12-03-2024 Very low density lipoprotein (VLDL) cholesterol measurement 24 mg/dL 5-40 [facility] VLDL Cholesterol 24 mg/dL 5-40 [facility] Vitamin D,25 Hydroxyon 12-03 Vitamin D 25-OH 30.5 ng/mL Normal [facility] Comment on above: Result Comment: Dianna min D 25(OH) Status Range Deficiency <20 ng/mL (50nmol/L) Insufficiency 20 - 30 ng/mL (50 - 75 nmol/L) Sufficiency 30 - 100 ng/mL (75 - 250 nmol/L) Toxicity >100 ng/mL (>250 nmol/L) Performed By: #### L [id number], L500.4100, L100.0100, L500.4050, L506.1001 #### [facility] [address] [place], [address] White blood cell (WBC) count Ordered By: Geoff Perze on 12-03-2024 WBC (Bld) [#/Vol] 8.3 10*3/uL 4.4-11.0 [facility] TSH QnOrdered By: Geoff quintana 10-03-2024 Thyroid Stimulating Hormone (TSH) 3.300 uIU/mL 0.358-3.740 [facility] Thyroid Stim Hormone (TSH)on 10-03-2024 TSH 3.300 uIU/mL Normal 0.358-3.740 [facility] Comment on above: Performed By: #### L [id number], L500.4100, L100.0100, L500.4050, L506.1001 #### [facility] [address] [place], [address] Immunoglobulins G/A/M/Raffaele IMMUNOGLOB A QN Normal [facility] Comment on above: Order Comment: N Result Comment: WRON G TEST Performed By: #### L 3200.1100 #### [facility] [address] [place], [address] IMMUNOGLOB E QN Normal [facility] Comment on above: Order Comment: N Result Comment: WRON G TEST Performed By: #### L 3200.1100 #### [facility] [address] [place], [address] IMMUNOGLOB G QN Normal [facility] Comment on above: Order Comment: N Result Comment: WRON G TEST Performed By: #### L 3200.1100 #### [facility] [address] [place], [address] IMMUNOGLOB M QN Normal [facility] Comment on above: Order Comment: N Result Comment: WRON G TEST Performed By: #### L 3200.1100 #### [facility] [address] [place], [address] Absolute lymphocyte countOrd ered By: Geoff Perez on 11-21-2023 Lymphocytes Auto (Unsp spec) [#/Vol] 1.31 10*3/uL 0.83-4.51 [facility] Automated lymphocyte count a s percentage of total leukocytesOrdered By: Geoff Perez on 11-21-2023 Lymphocytes/100 WBC Auto (Unsp spec) 17.6 % 19-41 [facility] Basophil percentageOrdered B y: Geoff Perez on 11-21-2023 Basophils/100 WBC (Bld) 0.7 % 0-1 [facility] Bilirubin [Mass/Vol] 0.50 mg/dL 0.20-1.00 [facility] Comment on above: For patients on eltr ombopag therapy, use of Dimension Hardin TBIL is not recommended. Chloride [Moles/Vol] 110 mmol/L 98-107 [facility] Eosinophils/100 WBC (Bld) 4.2 % 0-5 [facility] Glucose [Mass/Vol] 110 mg/dL 74-106 [facility] Comment on above: Fasting Glucose resu lt from 100 to 125 mg/dL suggests IMPAIRED HOMEOSTASIS per A.D.A. criteria. Hemoglobin (Bld) [Mass/Vol] 14.1 g/dL 12.0-15.0 [facility] Monocytes/100 WBC (Bld) 8.6 % 0-10 [facility] Neutrophils (Bld) [#/Vol] 5.1 10*3/uL 2.0-7.7 [facility] Neutrophils/100 WBC (Bld) 68.6 % 47-70 [facility] Potassium [Moles/Vol] 4.2 mmol/L 3.5-5.1 [facility] Protein [Mass/Vol] 7.0 g/dL 6.4-8.2 [facility] Sodium [Moles/Vol] 142 mmol/L 136-145 [facility] WBC (Bld) [#/Vol] 7.4 10*3/uL 4.4-11.0 [facility] Determination of erythrocyte mean corpuscular volume (MCV)Ordered By: Geoff Perez on 11-21-2023 MCV (RBC) [Entitic vol] 87.6 fL 81-99 [facility] Erythrocyte distribution wid th ratioOrdered By: Geoff Perez on 11-21-2023 Erythrocyte distribution width (RBC) [Ratio] 13.7 % 11.6-14.6 [facility] Erythrocyte distribution wid th standard deviationOrdered By: Geoff Perez on 11-21-2023 Erythrocyte distribution width (RBC) [Entitic vol] 44.1 fL 35.1-43.9 [facility] Hematocrit Auto (Bld) [Volum e fraction]Ordered By: Geoff Perez on 11-21-2023 Hematocrit (Bld) [Volume fraction] 42.5 % 37-47 [facility] Immature granulocytes/100 WB C Auto (Bld)Ordered By: Geoff Perez on 11-21-2023 Immature granulocytes/100 WBC (Bld) 0.300 % 0.0-0.9 [facility] Comment on above: IG% - Immature Granu locytes (promyelocytes, myelocytes and metamyelocytes) > 1% indicates that a LEFT SHIFT is Present. Laboratory - Chemistry and C hemistry - challengeOrdered By: Geoff Perez on 11-21-2023 Albumin/Globulin [Mass ratio] 1.1 {ratio} 0.9-2.4 [facility] ALP [Catalytic activity/Vol] 107 U/L 45-117 [facility] ALT [Catalytic activity/Vol] 22 U/L 13-56 [facility] CO2 [Moles/Vol] 27.0 mmol/L 21.0-32.0 [facility] Globulin (S) [Mass/Vol] 3.3 g/dL 2.2-4.2 [facility] Urea nitrogen/Creatinine [Mass ratio] 15.6 mg/mg 10-20 [facility] - Hematology and Cell countsOrdered By: Geoff Perez 11-21-2023 MCH (RBC) [Entitic mass] 29.1 pg 27.0-32.0 [facility] MCHC (RBC) [Mass/Vol] 33.2 g/dL 32-36 [facility] Nucleated RBC/100 WBC (Bld) [Ratio] 0 % 0-5 [facility] Platelets (Bld) [#/Vol] 270 10*3/uL 150-450 [facility] No Panel InformationOrdered By: Geoff Perez on 11-21-2023 Estimated GFR (MDRD) Amer 96 mL/min >60 [facility] Comment on above: GFR Calc Estimated GFR (MDRD) Non-Af Amer 80 mL/min >60 [facility] Comment on above: Non- GFR Calc Vitamin D 25-Hydroxy 30.8 ng/mL [facility] Comment on above: Vitamin D 25(OH) Sta tus Range Deficiency <20 ng/mL (50nmol/L) Insufficiency 20 - 30 ng/mL (50 - 75 nmol/L) Sufficiency 30 - 100 ng/mL (75 - 250 nmol/L) Toxicity >100 ng/mL (>250 nmol/L) Platelet mean volume Rodolfo-Ec ker (Bld) [Entitic vol]Ordered By: Geoff Perez on 11-21-2023 Platelet mean volume (Bld) [Entitic vol] 8.9 fL 6.2-12.0 [facility] RBC Auto (Bld) [#/Vol]Ordere d By: Geoff Perez on 11-21-2023 RBC (Bld) [#/Vol] 4.85 10*6/uL 4.2-5.4 [facility] Serum or plasma calcium manoj urement (mass/volume)Ordered By: Geoff Perez 11-21-2023 Calcium [Mass/Vol] 9.0 mg/dL 8.5-10.1 [facility] Serum or plasma creatinine m easurement (mass/volume)Ordered By: Geoff Perez 11-21-2023 Creatinine [Mass/Vol] 0.77 mg/dL 0.55-1.02 [facility] Comment on above: The validity of the calculated GFR & GFRAA in patients over 70 years has not been determined. Clinical correlation is essential. Serum or plasma thyroid stim ulating hormone (TSH) measurement (units/volume)Ordered By: Geoff Perez 11-21-2023 TSH Qn 5.26 uIU/mL 0.358-3.74 [facility] Serum or plasma urea nitroge n measurement (mass/volume)Ordered By: Geoff Perez 11-21-2023 Urea nitrogen [Mass/Vol] 12 mg/dL 7-18 [facility] Thin prep Papanicolaou smear with manual screeningOrdered By: Geoff Perez 11-21-2023 Thin prep Papanicolaou smear with manual screening 3.7 g/dL 3.2-5.0 [facility] Thin prep Papanicolaou smear with manual screening 15 U/L 15-37 [facility] Thin prep Papanicolaou smear with manual screening 5 5-15 [facility] Absolute lymphocyte countOrd ered By: Geoff Perez on 08-09-2023 Lymphocytes Auto (Unsp spec) [#/Vol] 1.29 10*3/uL 0.83-4.51 [facility] Basophil percentageOrdered B y: Geoff Perez on 08-09-2023 Basophils/100 WBC (Bld) 0.5 % 0-1 [facility] Bilirubin [Mass/Vol] 0.40 mg/dL 0.20-1.00 [facility] Comment on above: For patients on eltr ombopag therapy, use of Dimension Hardin TBIL is not recommended. Chloride [Moles/Vol] 109 mmol/L 98-107 [facility] Eosinophils/100 WBC (Bld) 1.1 % 0-5 [facility] Glucose [Mass/Vol] 111 mg/dL 74-106 [facility] Comment on above: Fasting Glucose resu lt from 100 to 125 mg/dL suggests IMPAIRED HOMEOSTASIS per A.D.A. criteria. Neutrophils (Bld) [#/Vol] 6.2 10*3/uL 2.0-7.7 [facility] Neutrophils/100 WBC (Bld) 73.3 % 47-70 [facility] Potassium [Moles/Vol] 3.7 mmol/L 3.5-5.1 [facility] Protein [Mass/Vol] 7.2 g/dL 6.4-8.2 [facility] Sodium [Moles/Vol] 141 mmol/L 136-145 [facility] WBC (Bld) [#/Vol] 8.4 10*3/uL 4.4-11.0 [facility] Blood erythrocytes count (nu mber/volume)Ordered By: Geoff Perez on 08-09-2023 RBC (Bld) [#/Vol] 5.19 10*6/uL 4.2-5.4 [facility] Blood hemoglobin measurement (mass/volume)Ordered By: Geoff Perez on 08-09-2023 Hemoglobin (Bld) [Mass/Vol] 15.3 g/dL 12.0-15.0 [facility] Blood lymphocytes/100 leukoc ytesOrdered By: Geoff Perez on 08-09-2023 Lymphocytes/100 WBC (Bld) 15.4 % 19-41 [facility] Blood monocytes/100 leukocyt esOrdered By: [facility] on 08-09-2023 Monocytes/100 WBC (Bld) 9.2 % 0-10 [facility] Blood platelet mean volumeOr dered By: [facility] on 08-09-2023 Platelet mean volume (Bld) [Entitic vol] 8.6 fL 6.2-12.0 [facility] Determination of erythrocyte mean corpuscular volume (MCV)Ordered By: [facility] on 08-09-2023 MCV (RBC) [Entitic vol] 89.8 fL 81-99 [facility] Hematocrit Auto (Bld) [Volum e fraction]Ordered By: [facility] on 08-09-2023 Hematocrit (Bld) [Volume fraction] 46.6 % 37-47 [facility] - Chemistry and C hemistry - challengeOrdered By: [facility] 08-09-2023 ALP [Catalytic activity/Vol] 119 U/L 45-117 [facility] ALT [Catalytic activity/Vol] 26 U/L 13-56 [facility] CO2 [Moles/Vol] 27.0 mmol/L 21.0-32.0 [facility] Cobalamin (Vitamin B12) [Mass/Vol] 205 pg/mL 211-911 [facility] Globulin (S) [Mass/Vol] 3.7 g/dL 2.2-4.2 [facility] Urea nitrogen/Creatinine [Mass ratio] 17.9 mg/mg 10-20 [facility] - Hematology and Cell countsOrdered By: [facility] 08-09-2023 Erythrocyte distribution width (RBC) [Entitic vol] 42.5 fL 35.1-43.9 [facility] Erythrocyte distribution width (RBC) [Ratio] 13.0 % 11.6-14.6 [facility] Immature granulocytes/100 WBC (Bld) 0.500 % 0.0-0.9 [facility] Comment on above: IG% - Immature Granu locytes (promyelocytes, myelocytes and metamyelocytes) > 1% indicates that a LEFT SHIFT is Present. MCH (RBC) [Entitic mass] 29.5 pg 27.0-32.0 [facility] Nucleated RBC/100 WBC (Bld) [Ratio] 0 % 0-5 [facility] MCHC Auto (RBC) [Mass/Vol]Or dered By: Geoff Perez on 08-09-2023 MCHC (RBC) [Mass/Vol] 32.8 g/dL 32-36 [facility] No Panel InformationOrdered By: Geoff Perez on 08-09-2023 Estimated GFR (MDRD) Amer 102 mL/min >60 [facility] Comment on above: GFR Calc Estimated GFR (MDRD) Non-Af Amer 85 mL/min >60 [facility] Comment on above: Non- GFR Calc Thyroid Stimulating Hormone (TSH) 3.43 uIU/mL 0.358-3.74 [facility] Platelets bldOrdered By: Geoff Perez on 08-09-2023 Platelets (Bld) [#/Vol] 292 10*3/uL 150-450 [facility] Serum Treponema species anti body detectionOrdered By: Geoff Perez on 08-09-2023 Treponema sp Ab Ql (S) Non-Reactive [facility] Serum or plasma albumin manoj urement (mass/volume)Ordered By: Geoff Perez on 08-09-2023 Albumin [Mass/Vol] 3.5 g/dL 3.2-5.0 [facility] Serum or plasma albumin/glob ulin mass ratioOrdered By: Geoff Perez 08-09-2023 Albumin/Globulin [Mass ratio] 0.9 {ratio} 0.9-2.4 [facility] Serum or plasma calcium manoj urement (mass/volume)Ordered By: Geoff Perez on 08-09-2023 Calcium [Mass/Vol] 8.8 mg/dL 8.5-10.1 [facility] Serum or plasma creatinine m easurement (mass/volume)Ordered By: Geoff Perez 08-09-2023 Creatinine [Mass/Vol] 0.73 mg/dL 0.55-1.02 [facility] Comment on above: The validity of the calculated GFR & GFRAA in patients over 70 years has not been determined. Clinical correlation is essential. Serum or plasma folate measu rement (mass/volume)Ordered By: Geoff Perez on 08-09-2023 Folate [Mass/Vol] 48.00 ng/mL 3.1-55.4 [facility] Comment on above: Slight Hemolysis, Re sult may be falsely increased. Serum or plasma urea nitroge n measurement (mass/volume)Ordered By: Geoff Perez on 08-09-2023 Urea nitrogen [Mass/Vol] 13 mg/dL 7-18 [facility] Thin prep Papanicolaou smear with manual screeningOrdered By: Geoff Perez on 08-09-2023 Thin prep Papanicolaou smear with manual screening 16 U/L 15-37 [facility] Thin prep Papanicolaou smear with manual screening 5 5-15 [facility] Whole blood hemoglobin A1c/t otal hemoglobin ratio (mass fraction)Ordered By: Geoff Perez on 08-09-2023 HbA1c (Bld) [Mass fraction] 5.0 % 3.8-5.6 [facility] Comment on above: Normal < 5.7 % Predi abetic 5.7 - 6.4 % Diabetic >or= 6.5 % Please note range changes. Absolute lymphocyte countOrd ered By: Dr. Perez on 02-16-2023 Lymphocytes Auto (Unsp spec) [#/Vol] 1.97 10*3/uL 0.83-4.51 [facility] Basophil percentageOrdered B y: Dr. Perez on 02-16-2023 Basophils/100 WBC (Bld) 0.7 % 0-1 [facility] Bilirubin [Mass/Vol] 0.50 mg/dL 0.20-1.00 [facility] Comment on above: For patients on eltr ombopag therapy, use of Dimension Hardin TBIL is not recommended. Chloride [Moles/Vol] 109 mmol/L 98-107 [facility] Eosinophils/100 WBC (Bld) 1.2 % 0-5 [facility] Glucose [Mass/Vol] 112 mg/dL 74-106 [facility] Comment on above: Fasting Glucose resu lt from 100 to 125 mg/dL suggests IMPAIRED HOMEOSTASIS per A.D.A. criteria. Neutrophils (Bld) [#/Vol] 4.6 10*3/uL 2.0-7.7 [facility] Neutrophils/100 WBC (Bld) 62.8 % 47-70 [facility] Potassium [Moles/Vol] 3.4 mmol/L 3.5-5.1 [facility] Protein [Mass/Vol] 6.5 g/dL 6.4-8.2 [facility] Sodium [Moles/Vol] 138 mmol/L 136-145 [facility] WBC (Bld) [#/Vol] 7.4 10*3/uL 4.4-11.0 [facility] Blood erythrocytes count (nu mber/volume)Ordered By: Dr. Perez on 02-16-2023 RBC (Bld) [#/Vol] 4.99 10*6/uL 4.2-5.4 [facility] Blood hemoglobin measurement (mass/volume)Ordered By: Dr. Perez on 02-16-2023 Hemoglobin (Bld) [Mass/Vol] 14.5 g/dL 12.0-15.0 [facility] Blood lymphocytes/100 leukoc ytesOrdered By: Dr. Perez on 02-16-2023 Lymphocytes/100 WBC (Bld) 26.8 % 19-41 [facility] Blood monocytes/100 leukocyt esOrdered By: Dr. Perez on 02-16-2023 Monocytes/100 WBC (Bld) 8.0 % 0-10 [facility] Blood platelet mean volumeOr dered By: Dr. Perez on 02-16-2023 Platelet mean volume (Bld) [Entitic vol] 8.7 fL 6.2-12.0 [facility] Determination of erythrocyte mean corpuscular volume (MCV)Ordered By: Dr. Perez on 02-16-2023 MCV (RBC) [Entitic vol] 88.0 fL 81-99 [facility] Hematocrit Auto (Bld) [Volum e fraction]Ordered By: Dr. Perez on 02-16-2023 Hematocrit (Bld) [Volume fraction] 43.9 % 37-47 [facility] Laboratory - Chemistry and C hemistry - challengeOrdered By: Dr. Perez on 02-16-2023 ALP [Catalytic activity/Vol] 88 U/L 45-117 [facility] ALT [Catalytic activity/Vol] 19 U/L 13-56 [facility] CO2 [Moles/Vol] 24.0 mmol/L 21.0-32.0 [facility] Globulin (S) [Mass/Vol] 3.1 g/dL 2.2-4.2 [facility] Urea nitrogen/Creatinine [Mass ratio] 14.6 mg/mg 10-20 [facility] Laboratory - Hematology and Cell countsOrdered By: Dr. Perez on 02-16-2023 Erythrocyte distribution width (RBC) [Entitic vol] 42.6 fL 35.1-43.9 [facility] Erythrocyte distribution width (RBC) [Ratio] 13.2 % 11.6-14.6 [facility] Immature granulocytes/100 WBC (Bld) 0.500 % 0.0-0.9 [facility] Comment on above: IG% - Immature Granu locytes (promyelocytes, myelocytes and metamyelocytes) > 1% indicates that a LEFT SHIFT is Present. MCH (RBC) [Entitic mass] 29.1 pg 27.0-32.0 [facility] Nucleated RBC/100 WBC (Bld) [Ratio] 0 % 0-5 [facility] MCHC Auto (RBC) [Mass/Vol]Or dered By: Dr. Perez on 02-16-2023 MCHC (RBC) [Mass/Vol] 33.0 g/dL 32-36 [facility] No Panel InformationOrdered By: Dr. Perez on 02-16-2023 Estimated GFR (MDRD) Amer 81 mL/min >60 [facility] Comment on above: GFR Calc Estimated GFR (MDRD) Non-Af Amer 67 mL/min >60 [facility] Comment on above: Non- GFR Calc Thyroid Stimulating Hormone (TSH) 3.59 uIU/mL 0.358-3.74 [facility] Vitamin D 25-Hydroxy 33.2 ng/mL [facility] Comment on above: Vitamin D 25(OH) Sta tus Range Deficiency <20 ng/mL (50nmol/L) Insufficiency 20 - 30 ng/mL (50 - 75 nmol/L) Sufficiency 30 - 100 ng/mL (75 - 250 nmol/L) Toxicity >100 ng/mL (>250 nmol/L) Platelets bldOrdered By: Dr. Perez on 02-16-2023 Platelets (Bld) [#/Vol] 278 10*3/uL 150-450 [facility] Serum or plasma albumin manoj urement (mass/volume)Ordered By: Dr. Perez on 02-16-2023 Albumin [Mass/Vol] 3.4 g/dL 3.2-5.0 [facility] Serum or plasma albumin/glob ulin mass ratioOrdered By: Dr. Perez on 02-16-2023 Albumin/Globulin [Mass ratio] 1.1 {ratio} 0.9-2.4 [facility] Serum or plasma calcium manoj urement (mass/volume)Ordered By: Dr. Perez on 02-16-2023 Calcium [Mass/Vol] 8.7 mg/dL 8.5-10.1 [facility] Serum or plasma creatinine m easurement (mass/volume)Ordered By: Dr. Perez on 02-16-2023 Creatinine [Mass/Vol] 0.89 mg/dL 0.55-1.02 [facility] Comment on above: The validity of the calculated GFR & GFRAA in patients over 70 years has not been determined. Clinical correlation is essential. Serum or plasma urea nitroge n measurement (mass/volume)Ordered By: Dr. Perez on 02-16-2023 Urea nitrogen [Mass/Vol] 13 mg/dL 7-18 [facility] Thin prep Papanicolaou smear with manual screeningOrdered By: Dr. Perez on 02-16-2023 Thin prep Papanicolaou smear with manual screening 16 U/L 15-37 [facility] Thin prep Papanicolaou smear with manual screening 5 5-15 [facility] COVID-19 virus antigen assay Ordered By: Dr. Perez on 02-15-2023 SARS-CoV-2 (COVID-19) Ag IA.rapid Ql (Resp) Not detected Not Detect [facility] Comment on above: Normal Reference Ran ge: [...] 02-15-2023 Influenza Types A,B Direct FA (GEMMA) [facility] No Panel InformationOrdered By: Dr. Perez on 02-15-2023 Influenza Types A,B Direct FA (GEMMA) [facility] RSV Ag EIAOrdered By: Geoff asif on 02-15-2023 RSV Ag Immune stain Ql (Tiss) [facility] RSV Ag EIAOrdered By: Dr. Britney asif on 02-15-2023 RSV Ag Immune stain Ql (Tiss) [facility] Absolute lymphocyte counton 08-18-2022 Lymphocytes Auto (Unsp spec) [#/Vol] 0.96 10*3/uL 0.83-4.51 [facility] Work Phone: Basophil percentageon 2021 Basophils/100 WBC (Bld) 0.5 % 0-1 [facility] Work Phone: Bilirubin [Mass/Vol] 0.50 mg/dL 0.20-1.00 [facility] Work Phone: [phone] Comment on above: For patients on eltr ombopag therapy, use of Dimension [place] TBIL is not recommended. Chloride [Moles/Vol] 110 mmol/L 98-107 [facility] Work Phone: Eosinophils/100 WBC (Bld) 2.3 % 0-5 [facility] Work Phone: Glucose [Mass/Vol] 92 mg/dL 74-106 [facility] Work Phone: Neutrophils (Bld) [#/Vol] 4.2 10*3/uL 2.0-7.7 [facility] Work Phone: Neutrophils/100 WBC (Bld) 72.5 % 47-70 [facility] Work Phone: Potassium [Moles/Vol] 4.0 mmol/L 3.5-5.1 [facility] Work Phone: Protein [Mass/Vol] 6.5 g/dL 6.4-8.2 [facility] Work Phone: Sodium [Moles/Vol] 141 mmol/L 136-145 [facility] Work Phone: WBC (Bld) [#/Vol] 5.7 10*3/uL 4.4-11.0 [facility] Work Phone: Blood erythrocytes count (nu mber/volume)on 08-18-2022 RBC (Bld) [#/Vol] 4.64 10*6/uL 4.2-5.4 [facility] Work [facility]: Blood hemoglobin measurement (mass/volume)on 08-18-2022 Hemoglobin (Bld) [Mass/Vol] 13.5 g/dL 12.0-15.0 [facility] Work Phone: Blood lymphocytes/100 leukoc yteson 08-18-2022 Lymphocytes/100 WBC (Bld) 16.7 % 19-41 [facility] Work Phone: Blood monocytes/100 leukocyt eson 08-18-2022 Monocytes/100 WBC (Bld) 7.8 % 0-10 [facility] Work Phone: Blood platelet mean volumeon 08-18-2022 Platelet mean volume (Bld) [Entitic vol] 8.6 fL 6.2-12.0 [facility] Work Phone: Determination of erythrocyte mean corpuscular volume (MCV)on 08-18-2022 MCV (RBC) [Entitic vol] 85.8 fL 81-99 [facility] Work Phone: Hematocrit Auto (Bld) [Volum e fraction]on 08-18-2022 Hematocrit (Bld) [Volume fraction] 39.8 % 37-47 [facility] Work Phone: Laboratory - Chemistry and C hemistry - challengeon 08-18-2022 ALP [Catalytic activity/Vol] 87 U/L 45-117 [facility] Work Phone: ALT [Catalytic activity/Vol] 19 U/L 13-56 [facility] Work Phone: CO2 [Moles/Vol] 27.0 mmol/L 21.0-32.0 [facility] Work Phone: Globulin (S) [Mass/Vol] 3.1 g/dL 2.2-4.2 [facility] Work Phone: Urea nitrogen/Creatinine [Mass ratio] 24.2 mg/mg 10-20 [facility] Work Phone: Laboratory - Hematology and Cell countson 08-18-2022 Erythrocyte distribution width (RBC) [Entitic vol] 41.6 fL 35.1-43.9 [facility] Work Phone: Erythrocyte distribution width (RBC) [Ratio] 13.2 % 11.6-14.6 [facility] Work Phone: Immature granulocytes/100 WBC (Bld) 0.200 % 0.0-0.9 [facility] Work Phone: Comment on above: IG% - Immature Granu locytes (promyelocytes, myelocytes and metamyelocytes) > 1% indicates that a LEFT SHIFT is Present. MCH (RBC) [Entitic mass] 29.1 pg 27.0-32.0 [facility] Work Phone: Nucleated RBC/100 WBC (Bld) [Ratio] 0 % 0-5 [facility] Work Phone: MCHC Auto (RBC) [Mass/Vol]on 08-18-2022 MCHC (RBC) [Mass/Vol] 33.9 g/dL 32-36 [facility] Work Phone: No Panel Informationon 08-18 Estimated GFR (MDRD) Amer 100 mL/min >60 [facility] Work Phone: Comment on above: GFR Calc Estimated GFR (MDRD) Non-Af Amer 83 mL/min >60 [facility] Work Phone: Comment on above: Non- GFR Calc Thyroid Stimulating Hormone (TSH) 3.00 uIU/mL 0.358-3.74 [facility] Work Phone: Vitamin D 25-Hydroxy 34.5 ng/mL [facility] Work Phone: Comment on above: Vitamin D 25(OH) Sta tus Range Deficiency <20 ng/mL (50nmol/L) Insufficiency 20 - 30 ng/mL (50 - 75 nmol/L) Sufficiency 30 - 100 ng/mL (75 - 250 nmol/L) Toxicity >100 ng/mL (>250 nmol/L) Platelets bldon 08-18-2022 Platelets (Bld) [#/Vol] 238 10*3/uL 150-450 [facility] Work Phone: Serum or plasma albumin manoj urement (mass/volume)on 08-18-2022 Albumin [Mass/Vol] 3.4 g/dL 3.2-5.0 [facility] Work Phone: Serum or plasma albumin/glob ulin mass ratioon 08-18-2022 Albumin/Globulin [Mass ratio] 1.1 {ratio} 0.9-2.4 [facility] Work Phone: Serum or plasma calcium manoj urement (mass/volume)on 08-18-2022 Calcium [Mass/Vol] 8.9 mg/dL 8.5-10.1 [facility] Work Phone: Serum or plasma creatinine m easurement (mass/volume)on 08-18-2022 Creatinine [Mass/Vol] 0.74 mg/dL 0.55-1.02 [facility] Work Phone: Comment on above: The validity of the calculated GFR & GFRAA in patients over 70 years has not been determined. Clinical correlation is essential. Serum or plasma urea nitroge n measurement (mass/volume)on 08-18-2022 Urea nitrogen [Mass/Vol] 18 mg/dL 7-18 [facility] Work Phone: Thin prep Papanicolaou smear with manual screeningon 08-18-2022 Thin prep Papanicolaou smear with manual screening 19 U/L 15-37 [facility] Work Phone: Thin prep Papanicolaou smear with manual screening 4 5-15 [facility] Work Phone: No Panel Informationon 06-30 Thyroid Stimulating Hormone (TSH) 2.83 uIU/mL 0.358-3.74 [facility] Work Phone: Absolute lymphocyte counton 02-23-2022 Lymphocytes Auto (Unsp spec) [#/Vol] 1.24 10*3/uL 0.83-4.51 [facility] Work Phone: Basophil percentageon 2021 Basophils/100 WBC (Bld) 0.4 % 0-1 [facility] Work Phone: Bilirubin [Mass/Vol] 0.40 mg/dL 0.20-1.00 [facility] Work Phone: Comment on above: For patients on eltr ombopag therapy, use of Dimension [place] TBIL is not recommended. Chloride [Moles/Vol] 105 mmol/L 98-107 [facility] Work Phone: Eosinophils/100 WBC (Bld) 3.4 % 0-5 [facility] Work Phone: Glucose [Mass/Vol] 94 mg/dL 74-106 [facility] Work Phone: [phone] Neutrophils (Bld) [#/Vol] 5.3 10*3/uL 2.0-7.7 [facility] Work Phone: Neutrophils/100 WBC (Bld) 69.2 % 47-70 [facility] Work Phone: Potassium [Moles/Vol] 4.1 mmol/L 3.5-5.1 [facility] Work Phone: Protein [Mass/Vol] 6.9 g/dL 6.4-8.2 [facility] Work Phone: Sodium [Moles/Vol] 139 mmol/L 136-145 [facility] Work Phone: WBC (Bld) [#/Vol] 7.6 10*3/uL 4.4-11.0 [facility] Work Phone: Blood erythrocytes count (nu mber/volume)on 02-23-2022 RBC (Bld) [#/Vol] 4.84 10*6/uL 4.2-5.4 [facility] Work Phone: Blood hemoglobin measurement (mass/volume)on 02-23-2022 Hemoglobin (Bld) [Mass/Vol] 13.7 g/dL 12.0-15.0 [facility] Work Phone: Blood lymphocytes/100 leukoc yteson 02-23-2022 Lymphocytes/100 WBC (Bld) 16.3 % 19-41 [facility] Work Phone: Blood monocytes/100 leukocyt eson 02-23-2022 Monocytes/100 WBC (Bld) 10.4 % 0-10 [facility] Work Phone: Blood platelet mean volumeon 02-23-2022 Platelet mean volume (Bld) [Entitic vol] 8.9 fL 6.2-12.0 [facility] Work Phone: Determination of erythrocyte mean corpuscular volume (MCV)on 02-23-2022 MCV (RBC) [Entitic vol] 85.5 fL 81-99 [facility] Work Phone: Hematocrit Auto (Bld) [Volum e fraction]on 02-23-2022 Hematocrit (Bld) [Volume fraction] 41.4 % 37-47 [facility] Work Phone: Laboratory - Chemistry and C hemistry - challengeon 02-23-2022 ALP [Catalytic activity/Vol] 69 U/L 45-117 [facility] Work Phone: ALT [Catalytic activity/Vol] 26 U/L 13-56 [facility] Work Phone: CO2 [Moles/Vol] 29.0 mmol/L 21.0-32.0 [facility] Work Phone: Globulin (S) [Mass/Vol] 3.5 g/dL 2.2-4.2 [facility] Work Phone: Urea nitrogen/Creatinine [Mass ratio] 17.6 mg/mg 10-20 [facility] Work Phone: Laboratory - Hematology and Cell countson 02-23-2022 Erythrocyte distribution width (RBC) [Entitic vol] 43.7 fL 35.1-43.9 [facility] Work Phone: Erythrocyte distribution width (RBC) [Ratio] 13.9 % 11.6-14.6 [facility] Work Phone: Immature granulocytes/100 WBC (Bld) 0.300 % 0.0-0.9 [facility] Work Phone: Comment on above: IG% - Immature Granu locytes (promyelocytes, myelocytes and metamyelocytes) > 1% indicates that a LEFT SHIFT is Present. MCH (RBC) [Entitic mass] 28.3 pg 27.0-32.0 [facility] Work Phone: Nucleated RBC/100 WBC (Bld) [Ratio] 0 % 0-5 [facility] Work Phone: MCHC Auto (RBC) [Mass/Vol]on 02-23-2022 MCHC (RBC) [Mass/Vol] 33.1 g/dL 32-36 [facility] Work Phone: No Panel Informationon 02-23 Estimated GFR (MDRD) Amer 111 mL/min >60 [facility] Work Phone: Comment on above: GFR Calc Estimated GFR (MDRD) Non-Af Amer 92 mL/min >60 [facility] Work Phone: Comment on above: Non- GFR Calc Thyroid Stimulating Hormone (TSH) 5.18 uIU/mL 0.358-3.74 [facility] Work Phone: Vitamin D 25-Hydroxy 32.8 ng/mL [facility] Work Phone: Comment on above: Vitamin D 25(OH) Sta tus Range Deficiency <20 ng/mL (50nmol/L) Insufficiency 20 - 30 ng/mL (50 - 75 nmol/L) Sufficiency 30 - 100 ng/mL (75 - 250 nmol/L) Toxicity >100 ng/mL (>250 nmol/L) Platelets bldon 02-23-2022 Platelets (Bld) [#/Vol] 272 10*3/uL 150-450 [facility] Work Phone: Serum or plasma albumin manoj urement (mass/volume)on 02-23-2022 Albumin [Mass/Vol] 3.4 g/dL 3.2-5.0 [facility] Work Phone: Serum or plasma albumin/glob ulin mass ratioon 02-23-2022 Albumin/Globulin [Mass ratio] 1.0 {ratio} 0.9-2.4 [facility] Work Phone: Serum or plasma calcium manoj urement (mass/volume)on 02-23-2022 Calcium [Mass/Vol] 8.8 mg/dL 8.5-10.1 [facility] Work Phone: Serum or plasma creatinine m easurement (mass/volume)on 02-23-2022 Creatinine [Mass/Vol] 0.68 mg/dL 0.55-1.02 [facility] Work Phone: Comment on above: The validity of the calculated GFR & GFRAA in patients over 70 years has not been determined. Clinical correlation is essential. Serum or plasma urea nitroge n measurement (mass/volume)on 02-23-2022 Urea nitrogen [Mass/Vol] 12 mg/dL 7-18 [facility] Work Phone: Thin prep Papanicolaou smear with manual screeningon 02-23-2022 Thin prep Papanicolaou smear with manual screening 28 U/L 15-37 [facility] Work Phone: Thin prep Papanicolaou smear with manual screening 5 5-15 [facility] Work Phone: Absolute lymphocyte counton 02-16-2022 Lymphocytes Auto (Unsp spec) [#/Vol] 1.05 10*3/uL 0.83-4.51 [facility] Work Phone: [phone] Basophil percentageon 2021 Basophils/100 WBC (Bld) 0.3 % 0-1 [facility] Work Phone: Bilirubin [Mass/Vol] 0.40 mg/dL 0.20-1.00 [facility] Work Phone: Comment on above: For patients on eltr ombopag therapy, use of Dimension [place] TBIL is not recommended. Chloride [Moles/Vol] 106 mmol/L 98-107 [facility] Work Phone: Eosinophils/100 WBC (Bld) 4.7 % 0-5 [facility] Work Phone: [phone] Glucose [Mass/Vol] 81 mg/dL 74-106 [facility] Work Phone: Neutrophils (Bld) [#/Vol] 3.9 10*3/uL 2.0-7.7 [facility] Work Phone: [phone] Neutrophils/100 WBC (Bld) 65.1 % 47-70 [facility] Work Phone: Potassium [Moles/Vol] 3.9 mmol/L 3.5-5.1 [facility] Work Phone: Protein [Mass/Vol] 6.5 g/dL 6.4-8.2 [facility] Work Phone: Sodium [Moles/Vol] 140 mmol/L 136-145 [facility] Work Phone: WBC (Bld) [#/Vol] 6.0 10*3/uL 4.4-11.0 [facility] Work Phone: Blood erythrocytes count (nu mber/volume)on 02-16-2022 RBC (Bld) [#/Vol] 4.72 10*6/uL 4.2-5.4 [facility] Work Phone: Blood hemoglobin measurement (mass/volume)on 02-16-2022 Hemoglobin (Bld) [Mass/Vol] 13.4 g/dL 12.0-15.0 [facility] Work Phone: Blood lymphocytes/100 leukoc yteson 02-16-2022 Lymphocytes/100 WBC (Bld) 17.5 % 19-41 [facility] Work Phone: Blood monocytes/100 leukocyt eson 02-16-2022 Monocytes/100 WBC (Bld) 12.1 % 0-10 [facility] Work Phone: Blood platelet mean volumeon 02-16-2022 Platelet mean volume (Bld) [Entitic vol] 8.9 fL 6.2-12.0 [facility] Work Phone: Determination of erythrocyte mean corpuscular volume (MCV)on 02-16-2022 MCV (RBC) [Entitic vol] 87.7 fL 81-99 [facility] Work Phone: Erythrocyte sedimentation ra ria 02-16-2022 ESR (Bld) [Velocity] 11 mm/h 0-30 [facility] Work Phone: Hematocrit Auto (Bld) [Volum e fraction]on 02-16-2022 Hematocrit (Bld) [Volume fraction] 41.4 % 37-47 [facility] Work Phone: Laboratory - Chemistry and C hemistry - challengeon 02-16-2022 ALP [Catalytic activity/Vol] 64 U/L 45-117 [facility] Work Phone: ALT [Catalytic activity/Vol] 21 U/L 13-56 [facility] Work Phone: CO2 [Moles/Vol] 28.0 mmol/L 21.0-32.0 [facility] Work Phone: Cobalamin (Vitamin B12) [Mass/Vol] 346 pg/mL 211-911 [facility] Work Phone: Globulin (S) [Mass/Vol] 3.2 g/dL 2.2-4.2 [facility] Work Phone: Urea nitrogen/Creatinine [Mass ratio] 14.0 mg/mg 10-20 [facility] Work Phone: Laboratory - Hematology and Cell countson 02-16-2022 Erythrocyte distribution width (RBC) [Entitic vol] 44.8 fL 35.1-43.9 [facility] Work Phone: [phone] Erythrocyte distribution width (RBC) [Ratio] 13.8 % 11.6-14.6 [facility] Work Phone: Immature granulocytes/100 WBC (Bld) 0.300 % 0.0-0.9 [facility] Work Phone: Comment on above: IG% - Immature Granu locytes (promyelocytes, myelocytes and metamyelocytes) > 1% indicates that a LEFT SHIFT is Present. MCH (RBC) [Entitic mass] 28.4 pg 27.0-32.0 [facility] Work Phone: Nucleated RBC/100 WBC (Bld) [Ratio] 0 % 0-5 [facility] Work Phone: MCHC Auto (RBC) [Mass/Vol]on 02-16-2022 MCHC (RBC) [Mass/Vol] 32.4 g/dL 32-36 [facility] Work Phone: No Panel Informationon 02-16 Anti-Nuclear Antibody Screen Negative Negative [facility] Work Phone: Comment on above: Performed at: [address] [id number] Director: Houston Bowden PhD, Phone: [phone] Estimated GFR (MDRD) Amer 118 mL/min >60 [facility] Work Phone: Comment on above: GFR Calc Estimated GFR (MDRD) Non-Af Amer 98 mL/min >60 [facility] Work Phone: Comment on above: Non- GFR Calc Vitamin D 25-Hydroxy 34.6 ng/mL [facility] Work Phone: Comment on above: Vitamin D 25(OH) Sta tus Range Deficiency <20 ng/mL (50nmol/L) Insufficiency 20 - 30 ng/mL (50 - 75 nmol/L) Sufficiency 30 - 100 ng/mL (75 - 250 nmol/L) Toxicity >100 ng/mL (>250 nmol/L) Platelets bldon 02-16-2022 Platelets (Bld) [#/Vol] 257 10*3/uL 150-450 [facility] Work Phone: Serum or plasma C reactive p rotein measurement (mass/volume)on 02-16-2022 CRP [Mass/Vol] 6.72 mg/L 0.0-3.0 [facility] Work Phone: Comment on above: C-Reactive Protein ( CRP) provides useful information for thediagnosis, therapy and monitoring of inflammatory processesand associated diseases. For the evaluation of Relative Riskfor Cardiovascular Disease, a High Sensitivity CRP (HSCRP)should be ordered. Serum or plasma albumin manoj urement (mass/volume)on 02-16-2022 Albumin [Mass/Vol] 3.3 g/dL 3.2-5.0 [facility] Work Phone: Serum or plasma albumin/glob ulin mass ratioon 02-16-2022 Albumin/Globulin [Mass ratio] 1.0 {ratio} 0.9-2.4 [facility] Work Phone: Serum or plasma calcium manoj urement (mass/volume)on 02-16-2022 Calcium [Mass/Vol] 8.2 mg/dL 8.5-10.1 [facility] Work Phone: Serum or plasma creatinine m easurement (mass/volume)on 02-16-2022 Creatinine [Mass/Vol] 0.64 mg/dL 0.55-1.02 [facility] Work Phone: Comment on above: The validity of the calculated GFR & GFRAA in patients over 70 years has not been determined. Clinical correlation is essential. Serum or plasma folate measu rement (mass/volume)on 02-16-2022 Folate [Mass/Vol] 33.60 ng/mL 3.1-55.4 [facility] Work Phone: Serum or plasma urea nitroge n measurement (mass/volume)on 02-16-2022 Urea nitrogen [Mass/Vol] 9 mg/dL 7-18 [facility] Work Phone: Serum rheumatoid factor dete ctionon 02-16-2022 Rheumatoid factor Ql (S) < 10.0 IU/mL <15 [facility] Work Phone: Thin prep Papanicolaou smear with manual screeningon 02-16-2022 Thin prep Papanicolaou smear with manual screening 23 U/L 15-37 [facility] Work Phone: Thin prep Papanicolaou smear with manual screening 6 5-15 [facility] Work Phone: Aldolase ser/plason 11-29-19 22 Aldolase [Catalytic activity/Vol] 8.6 mU/mL [facility] Work Phone: Comment on above: Performed at: [place] [id number] Director: Houston Bowden PhD, Phone: [phone] Laboratory - Chemistry and C hemistry - challengeon 11-29-2021 CK [Catalytic activity/Vol] 67 U/L 26-192 [facility] Work Phone: No Panel Informationon 11-17 Miscellaneous Test Comment MAILED SPECIMEN [facility] Work Phone: Absolute lymphocyte counton 10-29-2021 Lymphocytes Auto (Unsp spec) [#/Vol] 0.90 10*3/uL 0.83-4.51 [facility] Work Phone: Basophil percentageon 2021 Basophils/100 WBC (Bld) 0.6 % 0-1 [facility] Work Phone: Bilirubin [Mass/Vol] 0.60 mg/dL 0.20-1.00 [facility] Work Phone: Comment on above: For patients on eltr ombopag therapy, use of Dimension [place] TBIL is not recommended. Chloride [Moles/Vol] 107 mmol/L 98-107 [facility] Work Phone: Eosinophils/100 WBC (Bld) 2.5 % 0-5 [facility] Work Phone: Glucose [Mass/Vol] 93 mg/dL 74-106 [facility] Work Phone: Comment on above: Please note revised GLUCOSE reference range effective 2017. Neutrophils (Bld) [#/Vol] 3.2 10*3/uL 2.0-7.7 [facility] Work Phone: Neutrophils/100 WBC (Bld) 65.7 % 47-70 [facility] Work Phone: Potassium [Moles/Vol] 4.0 mmol/L 3.5-5.1 [facility] Work Phone: Protein [Mass/Vol] 6.8 g/dL 6.4-8.2 [facility] Work Phone: Sodium [Moles/Vol] 141 mmol/L 136-145 [facility] Work Phone: WBC (Bld) [#/Vol] 4.9 10*3/uL 4.4-11.0 [facility] Work Phone: Bilirubin Test strip Ql (U)o n 10-29-2021 Bilirubin Ql (U) Negative Negative [facility] Work Phone: Blood erythrocytes count (nu mber/volume)on 10-29-2021 RBC (Bld) [#/Vol] 4.93 10*6/uL 4.2-5.4 [facility] Work Phone: Blood hemoglobin measurement (mass/volume)on 10-29-2021 Hemoglobin (Bld) [Mass/Vol] 14.3 g/dL 12.0-15.0 [facility] Work Phone: Blood lymphocytes/100 leukoc yteson 10-29-2021 Lymphocytes/100 WBC (Bld) 18.5 % 19-41 [facility] Work Phone: Blood monocytes/100 leukocyt eson 10-29-2021 Monocytes/100 WBC (Bld) 12.3 % 0-10 [facility] Work Phone: Blood platelet mean volumeon 10-29-2021 Platelet mean volume (Bld) [Entitic vol] 9.0 fL 6.2-12.0 [facility] Work Phone: Determination of erythrocyte mean corpuscular volume (MCV)on 10-29-2021 MCV (RBC) [Entitic vol] 88.2 fL 81-99 [facility] Work Phone: Dilute Colby's viper venom timeon 10-29-2021 dRVVT Coag (PPP) [Time] 32.6 s [facility] Work Phone: Erythrocyte sedimentation ra ria 10-29-2021 ESR (Bld) [Velocity] 10 mm/h 0-30 [facility]: Hematocrit Auto (Bld) [Volum e fraction]on 10-29-2021 Hematocrit (Bld) [Volume fraction] 43.5 % 37-47 [facility] Work Phone: INR in Blood by Coagulation assayon 10-29-2021 INR Coag (Bld) [Relative time] 1.1 {INR} [facility] Work Phone: Ketones Test strip Ql (U)on 10-29-2021 Ketones Ql (U) Negative Negative [facility] Work Phone: Laboratory - Chemistry and C hemistry - challengeon 10-29-2021 ALP [Catalytic activity/Vol] 65 U/L 45-117 [facility] Work Phone: ALT [Catalytic activity/Vol] 32 U/L 13-56 [facility] Work Phone: CO2 [Moles/Vol] 28.0 mmol/L 21.0-32.0 [facility] Work Phone: Globulin (S) [Mass/Vol] 3.4 g/dL 2.2-4.2 [facility] Work Phone: Urea nitrogen/Creatinine [Mass ratio] 18.3 mg/mg 10-20 [facility] Work Phone: Laboratory - Coagulationon 0 10-29-2021 aPTT Coag (Bld) [Time] 31.0 s 24.1-36.2 Wo masha [facility] Work Phone: PT Coag (PPP) [Time] 13.4 s 11.7-14.9 [facility] Work Phone: Laboratory - Hematology and Cell countson 10-29-2021 Erythrocyte distribution width (RBC) [Entitic vol] 45.5 fL 35.1-43.9 [facility] Work Phone: Erythrocyte distribution width (RBC) [Ratio] 14.1 % 11.6-14.6 [facility] Work Phone: Immature granulocytes/100 WBC (Bld) 0.400 % 0.0-0.9 [facility] Work Phone: Comment on above: IG% - Immature Granu locytes (promyelocytes, myelocytes and metamyelocytes) > 1% indicates that a LEFT SHIFT is Present. MCH (RBC) [Entitic mass] 29.0 pg 27.0-32.0 [facility] Work Phone: Nucleated RBC/100 WBC (Bld) [Ratio] 0 % 0-5 [facility] Work Phone: Laboratory - Miscellaneous t estson 10-29-2021 Service comment (Unsp spec) [Interp] Comment [facility] Work Phone: Comment on above: Results do not indic ate the presence of a LupusAnticoagulant: abnormal high screening results (PTT-LA,dRVVT, mixing studies), may be due to medication (heparin,warfarin, aspirin), Factor inhibitors, anticardiolipinantibodies, or poor specimen integrity.Performed at: [address] [id number] Director: Micheline Saravia MD, Phone: [phone] MCHC Auto (RBC) [Mass/Vol]on 10-29-2021 MCHC (RBC) [Mass/Vol] 32.9 g/dL 32-36 [facility] Work Phone: Nitrite Test strip Ql (U)on 10-29-2021 Nitrite Ql (U) Negative Negative [facility] Work Phone: No Panel Informationon 10-29 Miscellaneous Test Comment MAILED SPECIMEN [facility] Work Phone: Estimated GFR (MDRD) Amer 144 mL/min >60 [facility] Work Phone: Comment on above: GFR Calc Estimated GFR (MDRD) Non-Af Amer 119 mL/min >60 [facility] Work Phone: Comment on above: Non- GFR Calc Hepatitis B Surface Antigen Non-Reactive Nonreactive [facility] Work Phone: Hepatitis C Antibody Non-Reactive Nonreactive [facility] Work Phone: Comment on above: Non Reactive: < 0.8 Equivocal: >/= 0.8 to < 1.0 Reactive: >/= 1.0The CDC recommends that a reactive/equivocal HCV antibody result be followed up by the HCV Nucleic Acid Amplificationtest (974394) Platelets bldon 10-29-2021 Platelets (Bld) [#/Vol] 250 10*3/uL 150-450 [facility] Work Phone: Protein Test strip Ql (U)on 10-29-2021 Protein Ql (U) Negative Negative [facility] Work Phone: Serum hepatitis B virus surf abril antibody IgG detectionon 10-29-2021 HBV surface IgG Ql (S) Non-Reactive [facility] Work Phone: Comment on above: Non Reactive: Incons istent with immunity less than <10 mIU/mL Reactive: Consistent with immunity greater than or equal to 10 mIU/mL Serum or plasma C reactive p rotein measurement (mass/volume)on 10-29-2021 CRP [Mass/Vol] 3.52 mg/L 0.0-3.0 [facility] Work Phone: Comment on above: C-Reactive Protein ( CRP) provides useful information for thediagnosis, therapy and monitoring of inflammatory processesand associated diseases. For the evaluation of Relative Riskfor Cardiovascular Disease, a High Sensitivity CRP (HSCRP)should be ordered. Serum or plasma albumin manoj urement (mass/volume)on 10-29-2021 Albumin [Mass/Vol] 3.4 g/dL 3.2-5.0 [facility] Work Phone: Serum or plasma albumin/glob ulin mass ratioon 10-29-2021 Albumin/Globulin [Mass ratio] 1.0 {ratio} 0.9-2.4 [facility] Work Phone: Serum or plasma calcium manoj urement (mass/volume)on 10-29-2021 Calcium [Mass/Vol] 9.0 mg/dL 8.5-10.1 [facility] Work Phone: Serum or plasma creatinine m easurement (mass/volume)on 10-29-2021 Creatinine [Mass/Vol] 0.54 mg/dL 0.55-1.02 [facility] Work Phone: Comment on above: The validity of the calculated GFR & GFRAA in patients over 70 years has not been determined. Clinical correlation is essential. Serum or plasma urea nitroge n measurement (mass/volume)on 10-29-2021 Urea nitrogen [Mass/Vol] 10 mg/dL 7-18 [facility] Work Phone: Thin prep Papanicolaou smear with manual screeningon 10-29-2021 Thin prep Papanicolaou smear with manual screening 38 U/L 15-37 [facility] Work Phone: Thin prep Papanicolaou smear with manual screening 6 5-15 [facility] Work Phone: Thin prep Papanicolaou smear with manual screening 34.6 sec [facility] Work Phone: Thin prep Papanicolaou smear with manual screening 1.00 Ratio [facility] Work Phone: Thin prep Papanicolaou smear with manual screening 36.6 sec [facility] Work Phone: Thin prep Papanicolaou smear with manual screening Comment: [facility] Work Phone: Comment on above: No lupus anticoagula nt was detected. Thrombin time in platelet po or plasmaon 10-29-2021 Thrombin time Coag (PPP) [Time] 15.2 sec [facility] Work Phone: Urine blood detectionon RBC Ql (U) Negative Negative [facility] Work Phone: Urine clarityon 10-29-2021 Clarity (U) Sl. Cloudy Clear [facility] Work Phone: Urine color determinationon 10-29-2021 Color (U) Yellow Yellow [facility] Work Phone: Urine creatinine measurement (mass/volume)on 10-29-2021 Creatinine (U) [Mass/Vol] 108.00 mg/dL NO RANGE EST. [facility] Work Phone: Urine glucose detectionon Glucose Ql (U) Normal mg/dl Normal [facility] Work Phone: Urine leukocyte esterase det ection by dipstickon 10-29-2021 Leukocyte esterase Test strip Ql (U) 100 /ul Negative [facility] Work Phone: Urine pHon 10-29-2021 pH (U) 5.0 [pH] [facility] Work Phone: Urine protein measurement (m ass/volume)on 10-29-2021 Protein (U) [Mass/Vol] 7.6 mg/dL 0.0-11.[address] [facility] Work Phone: Urine protein/creatinine mas s ratioon 10-29-2021 Protein/Creatinine (U) [Mass ratio] 70 mg/g CRE 0-200 [facility] Work Phone: Urine specific gravity measu rementon 10-29-2021 Specific gravity (U) [Rel density] 1.020 [facility] Work Phone: Urobilinogen Auto test strip Ql (U)on 10-29-2021 Urobilinogen Ql (U) Normal mg/dl Normal [facility] Work Phone: Vital Signs Date Time Vital Sign Value Performing Clinician Faci lity 06-06-2025 13:56-0400 Body temperature 98.1 [degF] Dr. Geoff Perez MD Work Phone: [facility] 06-06-2025 13:56-0400 Diastolic blood pressure 83 mm[Hg] Dr. Geoff Perez MD Work Phone: [facility] 06-06-2025 13:56-0400 Heart rate 101 /min Dr. Geoff Perez MD Work Phone: [facility] 06-06-2025 13:56-0400 Respiratory rate 20 /min Dr. Geoff Perez MD Work Phone: [facility] 06-06-2025 13:56-0400 SaO2% (BldA) [Mass fraction] 93 % Dr. Geoff Perez MD Work Phone: [facility] 06-06-2025 13:56-0400 Systolic blood pressure 140 mm[Hg] Dr. Geoff Perez MD Work Phone: [facility] 06-06-2025 10:48-0400 Body height 175.[address] Geoff Perez MD Work Phone: [facility] 06-06-2025 10:48-0400 Body mass index (BMI) [Ratio] 27.6 kg/m2 Dr. Geoff Perez MD Work Phone: [facility] 06-06-2025 10:48-0400 Body weight 84.[address] Geoff Perez MD Work Phone: 1(649)568-526645 [place] [address] 04-07-2025 08:05-0400 SaO2% (BldA) [Mass fraction] 94 % Dr. Geoff Perez MD Work Phone: 1(078)605-811545 [place] [address] 04-07-2025 07:57-0400 Body temperature 97.8 [degF] Dr. Geoff Perez MD Work Phone: 6(184)717-436571 [place] [address] 04-07-2025 07:57-0400 Diastolic blood pressure 78 mm[Hg] Dr. Geoff Perez MD Work Phone: 5(037)457-998771 [place] [address] 04-07-2025 07:57-0400 Heart rate 89 /min Dr. Geoff Perez MD Work Phone: 5(467)131-108271 [place] [address] 04-07-2025 07:57-0400 Respiratory rate 18 /min Dr. Geoff Perez MD Work Phone: 5(638)982-609371 [place] [address] 04-07-2025 07:57-0400 Systolic blood pressure 144 mm[Hg] Dr. Geoff Perez MD Work Phone: 1(671)123-770071 [place] [address] 04-06-2025 19:14-0400 Body height 175.[address] Geoff Perez MD Work Phone: 4(362)018-838871 [place] [address] 04-06-2025 19:14-0400 Body mass index (BMI) [Ratio] 27.2 kg/m2 Dr. Geoff Perez MD Work Phone: 4(648)237-452871 [place] [address] 04-06-2025 19:14-0400 Body weight 83.[address] Geoff Perez MD Work Phone: 2(239)987-656771 [place] [address] 04-06-2025 18:14-0400 Body temperature 98.2 [degF] Dr. Geoff Perez MD Work Phone: 9(295)276-788371 [place] [address] 04-06-2025 18:14-0400 Diastolic blood pressure 75 mm[Hg] Dr. Geoff Perez MD Work Phone: 7(082)491-508471 [place] [address] 04-06-2025 18:14-0400 Heart rate 100 /min Dr. Geoff Perez MD Work Phone: 0(396)437-101571 [place] [address] 04-06-2025 18:14-0400 Respiratory rate 15 /min Dr. Geoff Perez MD Work Phone: [facility] 04-06-2025 18:14-0400 SaO2% (BldA) [Mass fraction] 93 % Dr. Geoff Perez MD Work Phone: 5(423)617-136745 [place] [address] 04-06-2025 18:14-0400 Systolic blood pressure 160 mm[Hg] Dr. Geoff Perez MD Work Phone: 8(143)197-808445 [place] [address] 04-06-2025 15:46-0400 Inhaled oxygen flow rate 2 L/min Dr. Geoff Perez MD Work Phone: 6(247)823-882871 [place] [address] 04-06-2025 15:08-0400 Body mass index (BMI) [Ratio] 28.2 kg/m2 Dr. Geoff Perez MD Work Phone: 5(423)659-398771 [place] [address] 04-06-2025 15:08-0400 Body weight 86.[address] Geoff Perez MD Work Phone: 2(452)469-167945 [place] [address] 04-06-2025 14:43-0400 Body height 175.[address] Geoff Perez MD Work Phone: 0(146)548-843745 [place] [address] 04-21-2023 10:04-0400 Body temperature 97.6 [degF] Dr. Geoff Perez Work Phone: 3(752)995-193245 [place] [address] 04-21-2023 10:04-0400 Diastolic blood pressure 79 mm[Hg] Dr. Geoff Perez Work Phone: [facility] 04-21-2023 10:04-0400 Heart rate 66 /min Dr. Goeff Perez Work Phone: [facility] 04-21-2023 10:04-0400 Respiratory rate 18 /min Dr. Geoff Perez Work Phone: [facility] 04-21-2023 10:04-0400 SaO2% (BldA) [Mass fraction] 96 % Dr. Geoff Perez Work Phone: [facility] 04-21-2023 10:04-0400 Systolic blood pressure 111 mm[Hg] Dr. Geoff Perez Work Phone: [facility] 04-21-2023 08:06-0400 Body height 175.[address] Geoff Perez Work Phone: [facility] 04-21-2023 08:06-0400 Body mass index (BMI) [Ratio] 29.2 kg/m2 Dr. Geoff Perez Work Phone: [facility] 04-21-2023 08:06-0400 Body weight [address] Geoff Perez Work Phone: [facility] 03-09-2023 09:06-0400 Body mass index (BMI) [Ratio] 29.7 kg/m2 Dr. Geoff Perez Work Phone: [facility] 03-09-2023 09:06-0400 Body temperature 97.1 [degF] Dr. Geoff Perez Work Phone: [facility] 03-09-2023 09:06-0400 Body weight 91.[address] Geoff Perez Work Phone: [facility] 03-09-2023 09:06-0400 Diastolic blood pressure 81 mm[Hg] Dr. Geoff Perez Work Phone: [facility] 03-09-2023 09:06-0400 Heart rate 58 /min Dr. Geoff Perez Work Phone: [facility] 03-09-2023 09:06-0400 Respiratory rate 20 /min Dr. Geoff Perez Work Phone: [facility] 03-09-2023 09:06-0400 SaO2% (BldA) [Mass fraction] 99 % Dr. Geoff Perez Work Phone: [facility] 03-09-2023 09:06-0400 Systolic blood pressure 128 mm[Hg] Dr. Geoff Perez Work Phone: [facility] Encounters Encounter Date Encounter Type Care Provider Facility Start: 07-28-2025 End: 07-28-[address] Geoff Perez MD Work Phone: -Laboratory Start: 07-28-2025 End: 07-28-[address] Livan Velasquez MD -Laboratory Work Phone: Start: 07-28-2025 End: [facility] Start: 06-27-2025 End: 06-27-[address] Geoff Perez MD Work Phone: -Laboratory Start: 06-27-2025 End: 06-27-[address] Livan Velasquez MD -Laboratory Work Phone: Start: 06-27-2025 End: 06-27-2025 [facility] Start: 06-06-2025 End: 06-06-2025 Emergency department patient visit Dr. Geoff Perez MD Work Phone: -Emergency Department Work Phone: Start: 06-03-2025 End: 06-03-[address] Geoff Perez MD Work Phone: -Laboratory Start: 06-03-2025 End: 06-03-[address] Geoff Perez MD -Laboratory Work Phone: Start: 06-03-2025 End: 06-03-2025 ambulatory Geoff Perez Facility:[facility] Start: 04-07-2025 Non-patient / Non-visit Dr. Naida Barajas MD -[facility] Work Phone: Start: 04-06-2025 Non-patient / Non-visit Dr. Naida Barajas MD -[facility] Work Phone: Start: 04-06-2025 End: 04-07-2025 Evaluation and management of inpatient Dr. Carlos Barajas MD -Medical Surgical 3 Work Phone: Start: 04-06-2025 End: 04-07-[address] Geoff Perez MD Work Phone: [facility] Work Phone: Start: 04-06-2025 End: 04-07-2025 ambulatory Carlos Maria T Jenn Facility:[facility] Start: 03-18-2025 End: 03-18-[address] Geoff Perez MD Work Phone: [facility] Work Phone: Start: 03-18-2025 End: 03-18-[address] Geoff Perez MD -Laboratory Specimen Work Phone: Start: 03-18-2025 End: 03-18-2025 ambulatory Geoff Perez Facility:[facility] Start: 02-21-2025 End: 02-21-[address] Geoff Perez MD Work Phone: [facility] Work Phone: Start: 02-21-2025 End: 02-21-[address] Geoff Perez MD -Laboratory, Specimen Work Phone: Start: 02-21-2025 End: 02-21-2025 ambulatory Geoff Perez Facility:[facility] Start: 01-28-2025 End: 01-28-[address] Geoff Perez MD Work Phone: [facility] Work Phone: Start: 01-28-2025 End: 01-28-[address] Geoff Perez MD -Laboratory Work Phone: Start: 01-28-2025 End: 01-28-2025 ambulatory Geoff Perez Facility:[facility] Start: 01-07-2025 End: 01-07-[address] Geoff Perez MD Work Phone: [facility] Work Phone: Start: 01-07-2025 End: 01-07-[address] Geoff Perez MD -Cat Scan, [facility] Work Phone: Start: 01-06-2025 End: 01-07-[address] Geoff Perez MD Work Phone: [facility] Work Phone: Start: 01-06-2025 End: 01-06-[address] Geoff Perez MD -Laboratory, Phy Office 3rd Flr Start: 01-06-2025 End: 01-06-2025 ambulatory Geoff Tanok Facility:[facility] Start: 12-17-2024 End: 12-17-[address] Geoff Perez MD Work Phone: [facility] Work Phone: Start: 12-17-2024 End: 12-17-[address] Geoff Perez MD -Laboratory, Phy Office 3rd Flr Start: 12-17-2024 End: 12-17-2024 ambulatory Geoff Tanok Facility:[facility] Start: 12-03-2024 End: 12-03-[address] Geoff Perez MD -Laboratory Work Phone: Start: 12-03-2024 End: 12-03-2024 ambulatory Geoff Perez Facility:[facility] Start: 10-03-2024 End: 10-03-[address] Geoff Perez MD -Laboratory, Phy Office 3rd Flr Start: 10-03-2024 End: 10-03-2024 ambulatory Geoff Jairo Tanok Facility:[facility] Start: 12-26-2023 End: 12-26-2023 ambulatory [facility] Work Phone: Start: 12-26-2023 End: 12-26-2023 Patient encounter procedure [facility]-Outpatient Bone Densitometry Work Phone: Start: 11-21-2023 End: 11-21-2023 ambulatory [facility] Work Phone: Start: 11-21-2023 End: 11-21-2023 Patient encounter procedure [facility]-Laboratory, Phy Office 3rd Flr Start: 08-16-2023 End: 08-16-2023 ambulatory [facility] Work Phone: Start: 08-16-2023 End: 08-16-2023 Patient encounter procedure [facility]-Cat Scan, [facility] Work Phone: Start: 08-09-2023 End: 08-09-2023 Patient encounter procedure [facility]-Laboratory, Phy Office 3rd Flr Start: 06-07-2023 End: 06-07-2023 Patient encounter procedure [facility]-Radiology, [facility] Work Phone: Start: 04-21-2023 Non-patient / Non-visit Dr. Gume Perez Work Phone: [facility] Start: 04-21-2023 End: 04-21-2023 Admission to same day surgery center Dr. Geoff Perez Work Phone: [facility]-Endoscopy Work Phone: Start: 04-21-2023 End: 04-21-[address] Geoff Perez Work Phone: [facility] Work Phone: Start: 04-19-2023 End: 04-19-[address] Geoff Perez Work Phone: [facility] Work Phone: Start: 04-19-2023 End: 04-19-[address] Geoff Perez Work Phone: [facility] Work Phone: Start: 03-09-2023 End: 03-09-[address] Geoff Perez Work Phone: [facility] Work Phone: Start: 02-16-2023 End: 02-16-2023 ambulatory [facility] Work Phone: Start: 02-16-2023 End: 02-16-2023 Patient encounter procedure [facility]-Laboratory, Phy Office 3rd Flr Start: 02-15-2023 End: 02-15-2023 [facility] Start: 08-18-2022 End: 08-18-[address] Geoff Perez Work Phone: [facility] Work Phone: Start: 08-18-2022 End: 08-18-[address] [facility] Start: 07-13-2022 Non-patient / Non-visit Dr. Gume Perez Work Phone: [facility] Start: 07-13-2022 End: 07-13-[address] Geoff Perez Work Phone: [facility] Work Phone: Start: 07-13-2022 End: 07-13-[address] [facility] Start: 06-30-2022 End: 06-30-2022 ambulatory [facility] Work Phone: Start: 06-30-2022 End: 06-30-2022 [facility] Start: 02-23-2022 End: 02-23-2022 [facility] [facility] Office 3rd Flr Start: 02-16-2022 End: 02-16-2022 [facility] Start: 11-29-2021 End: 11-29-2021 [facility] [place] Start: 11-17-2021 End: 11-17-2021 [facility] [place] Start: 10-29-2021 End: 10-29-2021 [facility] Procedures Date Procedure Procedure Detail Performing Clinician Start: 06-27-2025 Gram stain microscopy Shree Perez MD Work Phone: Start: 06-27-[address] Geoff Perez MD Work Phone: Start: 06-27-[address] Geoff Perez MD Work Phone: Start: 06-06-2025 Plain chest X-ray Dr. Zan Perez MD Work Phone: Start: 06-06-2025 Carbon dioxide measu rement, partial pressure Dr. Geoff Perez MD Work Phone: Start: 06-06-2025 Gases blood o2 satur ation only direct manoj Dr. Geoff Perez MD Work Phone: Start: 06-06-2025 Measurement of parti al pressure of oxygen in blood Dr. Geoff Perez MD Work Phone: Start: 06-06-[address] Geoff Perez MD Work Phone: Start: 06-06-[address] Geoff Perez MD Work Phone: Start: 06-06-[address] Geoff Perez MD Work Phone: Start: 06-03-2025 Vitamin D, 25-hydrox y measurement Dr. Geoff Perez MD Work Phone: Comment on above: Vitamin D StatusDefi ciency: <20 ng/mL (50nmol/L)Insufficiency: 20-30 ng/mL (50-75 nmol/L)Sufficiency: 30-100 ng/mL (75-250 nmol/L)Toxicity: >100 ng/mL (>250 nmol/L) Start: 04-06-2025 Plain chest X-ray Dr. Zan [...] Treatment Date Care Activity Detail Author Start: 06-06-2025 End: 06-06-2025 [facility] Start: 06-06-2025 [facility] Start: 04-07-2025 Oxygen therapy [facility] Start: 04-07-2025 Patient discharge [facility] Start: 04-06-2025 Following clinical p athway protocol [facility] Start: 04-06-2025 Ambulation without limitation [facility] Start: 04-06-2025 Assessment of risk o f venous thromboembolism [facility] Start: 04-06-2025 Incentive spirometry [facility] Start: 04-06-2025 Insertion of cathete r into peripheral vein [facility] Start: 04-06-2025 Providing care accor ding to standard [facility] Start: 04-06-2025 [facility] Start: 04-06-2025 Verification routine [facility] Start: 04-06-2025 Admission procedure [facility] Start: 06-15-2025 Hospital admission, emergency, from emergency room, medical nature [facility] Start: 04-06-2025 [facility] Start: 12-26-2023 Dual energy X-ray absorptiometry Dexa Bone Density Study [facility] Start: 12-26-2023 DXA Bone [Mass/Area] Bone density [facility] Start: 04-21-2023 Patient discharge [facility] Colonoscopy [facility] Patient Education ED Asthma, Acu te (Adult) [facility] Work Phone: Patient referral [facility] Work Phone: Troponin T.cardiac [Mass/volume] in Serum or Plasma by High sensitivity method [facility] Immunizations Immunization Date Immunization Notes Care Provider Fa marvin 08-07-2015 tetanus toxoid, redu hill diphtheria toxoid, and acellular pertussis vaccine, adsorbed [facility] Payers Date Payer Category Payer Private Health Insurance [id number] 2024 Self-pay [id number] 2016 Private Health Insurance [id number] Medicare [id number] Unknown [id number] Unknown ANTHEM [id number] Unknown [id number] 2.16.8 [id number] Unknown [id number] 2.16.8 [id number] Unknown [id number] 2.16.8 [id number] Unknown [id number] 2.16.8 40.1.318459.3.579.2.462 Unknown [id number] 2.16.8 40.1.875601.3.579.2.462 Unknown [id number] 2.16.8 40.1.114899.3.579.2.462 Unknown [id number] 2.16.8 40.1.872444.3.579.2.462 Unknown [id number] 2.16.8 40.1.230840.3.579.2.462 Unknown [id number] 2.16.8 40.1.230563.3.579.2.462 Unknown [id number] 2.16.8 40.1.137328.3.579.2.462 Unknown [id number] 2.16.8 40.1.817865.3.579.2.462 Unknown [id number] 2.16.8 40.1.615661.3.579.2.462 Unknown [id number] 2.16.8 40.1.981729.3.579.2.462 Unknown [id number] 2.16.8 40.1.317737.3.579.2.462 Unknown [id number] 2.16.8 40.1.866765.3.579.2.462 Unknown [id number] 2.16.8 40.1.181386.3.579.2.462 Unknown [id number] 2.16.8 [id number] Social History Date Type Detail Facility Start: 03-25-2016 End: 04-17-2023 Tobacco smoking status NHIS Unknown if ever smoked [facility] Start: 1955 Sex Assigned At Female [facility] Start: 04-17-2023 Tobacco smoking status NHIS Never smoked tobacco (finding) [facility] Start: 01-01-2025 End: 01-31-2025 Sex Female (finding) [facility] Start: 04-06-2025 End: 06-06-2025 Tobacco smoking status NHIS Ex-smoker (finding) [facility] Sex Female [facility] NEGATED: Highlighted row [facility] Goals Date Patient Goal Desired Activity /State Functional Status Date Assessment Result Facility 04-07-2025 Functional status Ambulates [facility] Work Phone: Mental Status Date Assessment Result Facility 04-07-2025 Cognitive function Voice/Name [facility] Work Phone: 04-21-2023 Cognitive function Voice/Name [facility] Work Phone: Clinical Notes 04-21-2023 to 06-06-2025 Note Date & Type Note Facility 06-06-2025 Discharge summary Note Date/Time June 06, 2025 1:41pm [facility] Medical Records Department [address] [place] [address] Emergency Department Summary 06/06/25 MR#: [id number] Acct: [id number] Name: CHRIS LARSEN Rep #:[id number] : 1955 70 From: Anurag Corrales MD PCP: Dr. Geoff Perez MD Status:REG E R Location: ED HPI History of Present Illness Chief Complaint: Shortness of Breath Detail of Chief Complaint: Onset 3 days ago Informant: patient and spouse/S.O. Onset/Context/Timing Onset: Days (Exacerbation of asthma starting 2 to 3 days ago worse this morning) Context: gradual (Abruptly got worse this morning) Timing: Continuous Quality: Positive for Dyspnea on exertion and Wheezing; Negative for Orthopnea or PND Current Severity: Severe Maximum Severity: Severe Worsened by: Nothing Relieved by: Nothing Associated Symptoms cough and rhinorrhea; Negative for post nasal drip, ear pain, fever, sore throat, subjective, chills or sweats Chest Pain: Positive for None Narrative Narrative: Patient is a 70-year-old woman. She has history of asthma, hypothyroidism who was seen earlier this year for acute exacerbation of asthma. She had mild upperrespiratory symptoms with wheezing that started 2 to 3 days ago. Abruptly got worse today. She arrived with a pulse ox of 71%. She was diaphoretic obvious Rester distress able to speak in 1-2 word sentences. Most of her questions werederived that she could nod yes or no. When I entered the room she was receivingthe treatment. She was on 6 L with a 91% saturation. Patient denies fever, chills night sweats. Patient does report mild congestion and hoarse voice. She denies sore throat. Her cough is nonproductive. She denies orthopnea or PND. She denies pedal edema. She has no history of congestive heart failure. She has no history of VTE. She has no risk factors for VTE. She denies leg pain, swelling or discoloration. She denies history of peptic ulcer disease and denies black or maroon-colored stool. PE Risk Factors: Negative for Cancer, OCP + Smoking + > 35, Prior DVT or PE, Recent immobilization, Recent surgery or Recent travel Prior similar symptoms: Yes Recent Illness/Hospitalization: No PFSH PFSH Medical History Wears glasses Cancer Post-menopausal Depression [...] mg PO DAILY 04/06/25 U nknown History inhalational spacing device (Space #1 ea 06/06/25 Unkn own Rx Chamber) prednisone 20 mg tablet 60 mg (3 x 20 mg) PO DAILY # 15 06/06/25 Unknown Rx TABLETS Allergy/AdvReac Type Severity Reaction Status Date / Time cat dander Allergy dyspnea Verified 06/06/25 10:51 Family History Other Cancer Surgical History Previous section Social History Smoking Status: Former smoker ROS ROS ED Constitutional Constitutional ED: Denies chills, fever(s), sweats or weight loss Eyes Eyes: Denies blurry vision or change in vision ENT ENT ED: Denies ear pain, rhinorrhea or sore throat Cardiovascular Cardiovascular: Reports palpitations and racing heartbeat; Denies chest pain, orthopnea or paroxysmal nocturnal dyspnea Respiratory/Chest Respiratory/Chest: Reports cough, dyspnea and dyspnea on exertion; Denies orthopnea, paroxysmal nocturnal dyspnea or sputum Gastrointestinal Gastrointestinal: Denies abdominal pain, nausea or vomiting Genitourinary Genitourinary ED: Denies dysuria, hematuria or urinary frequency Musculoskeletal Musculoskeletal: Denies arthralgias or myalgias Integumentary Denies rash Neurologic Neurologic: Denies headache(s), paresthesias or weakness Endocrine Endocrinology: Denies cold intolerance or heat intolerance Hematologic/Lymphatic Hematologic/Lymphatic: Denies easy bleeding or easy bruising EXAM Physical Exam Const Vital Signs: 06/06/25 10:48 06/06/25 10:48 06/06/25 11:11 Temperature 97 F L Temperature Source Temporal Pulse Rate 106 H 107 H Respiratory Rate 28 H 24 H Respiratory Effort Short of Breath Labored Accessory Muscle Use Respiratory Depth Shallow Respiratory Pattern Tachypnea Blood Pressure 190/115 H Blood Pressure Mean 140 Pulse Ox 71 Oxygen Delivery Method Room Air Room Air 06/06/25 11:18 06/06/25 12:00 06/06/25 12:30 Temperature Temperature Source Pulse Rate 115 H 108 H 102 H Respiratory Rate 25 H 19 H 18 Respiratory Effort Respiratory Depth Respiratory Pattern Blood Pressure 137/93 H 120/79 125/76 H Blood Pressure Mean 107 92 92 Pulse Ox 98 91 91 Oxygen Delivery Method Room Air 06/06/25 13:00 Temperature Temperature Source Pulse Rate 104 H Respiratory Rate 24 H Respiratory Effort Respiratory Depth Respiratory Pattern Blood Pressure 138/75 H Blood Pressure Mean 96 Pulse Ox 94 Oxygen Delivery Method Room Air Positive well nourished and well developed Constitutional Narrative: Patient is diaphoretic respiratory distress use of accessory muscles retractionsspeaking in 1-2 word sentences General Appearance ED: well developed; Negative for NAD HEENT atraumatic and trauma Eyes PERRL and EOMs intact bilaterally General Eye ED: Negative for pale conjunctiva or scleral icterus Neck no lymphadenopathy, supple, no meningeal signs and no JVD Resp No normal respiratory effort and No clear to auscultation bilaterally Auscultation: wheezes expiratory wheezes and throughout and diminished lung sounds diffuse Cardio regular rhythm, S1 normal heart sound, S2 normal heart sound and no murmurs Rate: tachycardic GI non-tender, non-distended and no masses Back/Spine no CVA tenderness Extremity normal to inspection Extremity Narrative: There is no asymmetry, swelling, discoloration, leg vein distention, palpable cords or tenderness along the distribution of the deep venous system. Neuro oriented x3 and CN's II-XII intact bilaterally Sensorium / Orientation: alert Psych Mood & Affect: anxious Thought Process: normal thought process Skin no wounds and skin turgor normal Skin Narrative: Diaphoretic. Patient was not cyanotic so she was on oxygen. I was told she wascyanotic. MDM MDM MDM Narrative Medical decision making narrative: Acute exacerbation asthma. Patient has no infectious symptoms other than slightcough. She has no history of PE DVT and there is no clinical evidence of DVT. Since this started 2 to 3 days ago Forei got worse not consistent with PE. Needto consider congestive heart failure, pneumothorax, pneumonia. Will obtain chest x-ray appropriate blood work to assess for anemia, poor perfusion/endorgandysfunction. History & Record Review Discussion w/independent historian: EMS personnel, Patient and Significant other Additional record(s) reviewed:: Prior ED visit Lab Data Attestation: I reviewed the patient's lab results. Lab results narrative: White count is slightly elevated 11.3 with no shift. Lactate is normal. Comprehensive metabolic panel is remarkable for glucose of 145 otherwise unremarkable. Labs: Laboratory Results - last 24 hr 06/06/25 06/06/25 10:52 11:27 WBC 11.3 H RBC 5.30 Hgb 15.3 H Hct 46.0 MCV 86.8 MCH 28.9 MCHC 33.3 RDW Std Deviation 41.6 RDW Coeff of Eboni 13.2 Plt Count 242 MPV 9.8 Immature Gran % (Auto) 0.400 Neut % (Auto) 61.4 Lymph % (Auto) 24.5 Laporte % (Auto) 7.6 Eos % (Auto) 5.4 H Baso % (Auto) 0.7 Absolute Neuts (auto) 6.9 Absolute Lymphs (auto) 2.76 Nucleated RBC % 0 Sodium 140 Potassium 4.2 Chloride 106 Carbon Dioxide 21.8 Anion Gap 12 BUN 8 Creatinine 0.68 L Estim Creat Clear Calc 77.16 Est GFR (MDRD) Non-Af 94 BUN/Creatinine Ratio 11.9 Glucose 145 H Lactic Acid 1.2 Calcium 9.4 Total Bilirubin 0.48 AST 28 ALT 18 Alkaline Phosphatase 73 Total Protein 6.7 Albumin 4.3 Globulin 2.5 Albumin/Globulin Ratio 1.7 ABG Data Attestation: I personally reviewed and interpreted this ABG as follows: Interpretation: ABG reveals a mild acidosis with a PCO2 of 49, PO2 of 121 on 6 L. This is a respiratory acidosis. ABG results: ABG 06/06/25 11:20 Specimen Type ART Sample Site R Radial pH 7.33 L Bicarbonate Actual 25.6 Total CO2 27 Base Excess 0 O2 Saturation 98 O2 % 6.0 ABG pCO2 49.0 H ABG pO2 121 H Ron Test Positive O2 Delivery Device AeroMask Vent Mode Not entered Radiography Chest X-Ray - ED: 1 View and Read by ED Physician (Single view portable chest x-ray reveals no infiltrate, pneumothorax or cephalization/CHF. Cardiac size and silhouette is normal. Osseous structures with no acute process.) Diagnostic Testing: Clinical Impression(s) from Imaging Studies Chest X-Ray 06/06/25 11:22 IMPRESSION: No acute abnormality Reading Location: [facility] EKG Initial EKG: Attestation: I personally reviewed and interpreted this EKG as follows: Interpretation: Sinus Tachycardia (Rate is 107. NH interval is 130 ms. QRS duration 96 ms. QT duration under 70 ms. Kress is normal. The QTc is prolonged, however at 493 ms.) Treatment and Re-Evaluation :: Patient was reassessed more than 1 time. She still has slight wheezing. Pulse ox is 90 to 92% at rest. She was ambulated and her pulse ox went up to 94%. Patient feels comfortable going home. She was instructed to take prednisone until gone spacer was prescribed. She is to follow-up with Dr. Livan Velasquez. Critical Care Time Critical Care Time: Yes Critical care time (excluding procedures): 30-74 minutes (31), Including time spent: (History, physical, documentation, review of prior records,), Discussing w/Patient &/or Family/Sporting Goods Salesperson and Performing Direct Patient Care at Bedside Discharge Plan Triage Chief Complaint: Shortness of Breath ED Provider: Anurag Corrales Dx/Rx/DC Orders Clinical Impression: Acute asthma exacerbation, Acute respiratory distress, Sinus tachycardia, Acuterespiratory failure with hypoxia and hypercapnia Instructions: ED Asthma, Acute (Adult) Prescriptions: New prednisone 20 mg tablet 60 mg PO DAILY Qty: 15 0RF (DME) Space Chamber Spacer See Rx Instructions .Route Qty: 1 0RF Rx Instructions: As directed No Action budesonide-formoterol [Symbicort] 1 INHALER inhaler 1 inhaler PO DAILY Patient Comments: multivit with min-folic acid [Multivitamin Gummies] 200 mcg Tablet,Chewable 1 tab PO DAILY albuterol sulfate 90 mcg/actuation HFA aerosol inhaler 2 puff inhalation Q4H levothyroxine 50 mcg tablet 50 mcg PO DAILY venlafaxine 37.5 mg tablet 37.5 mg PO DAILY oxybutynin chloride 5 mg tablet 5 mg PO BID Primary Care Provider: Geoff Perez Chi Referrals: Livan Velasquez MD [Med Staff - Active Staff] - 3-5 Days Geoff Perez Chi, MD [Primary Care Provider] - Activity Restrictions/Additional Instructions: 4 to 6 puffs of your metered-dose inhaler with the spacer was equivalent to a nebulizer treatment. Would recommend carrying this with you at all times. Take prednisone until gone. If you develop shortness of breath and did not have your nebulizer available do 4 to 6 puffs and additional 4 to 6 puffs and 15 minutes. If you are no better at that time return to the emergency department Print Language: Polish Disposition Disposition: Home, Self Care What to do if you have Problems For any increased pain, shortness of breath, bleeding, nausea or vomiting, chestpain, or any unexpected problems, contact your Primary Care Provider. Call [facility] ([phone]) or report to the closest Emergency Room. Call 911 if necessary. 06/06/25 1341 <Electronically signed by Anurag Corrales MD> Cosigner Signature (if applicable): CC: Dr. Geoff Perez MD ~ Signed [facility] Work Phone: [phone]) 329-562908-15-2025 Discharge summary [facility] Medical Records Department [address] [place] [address] Emergency Department Summary 06/06/25 MR#: [id number] Acct: [id number] Name: CHRIS LARSEN Rep #:[id number] : 1955 70 From: Anurag Corrales MD PCP: Dr. Geoff Perez MD Status:REG E R Location: ED HPI History of Present Illness Chief Complaint: Shortness of Breath Detail of Chief Complaint: Onset 3 days ago Informant: patient and spouse/S.O. Onset/Context/Timing Onset: Days (Exacerbation of asthma starting 2 to 3 days ago worse this morning) Context: gradual (Abruptly got worse this morning) Timing: Continuous Quality: Positive for Dyspnea on exertion and Wheezing; Negative for Orthopnea or PND Current Severity: Severe Maximum Severity: Severe Worsened by: Nothing Relieved by: Nothing Associated Symptoms cough and rhinorrhea; Negative for post nasal drip, ear pain, fever, sore throat, subjective, chills or sweats Chest Pain: Positive for None Narrative Narrative: Patient is a 70-year-old woman. She has history of asthma, hypothyroidism who was seen earlier thisyear for acute exacerbation of asthma. She had mild upperrespiratory symptoms with wheezing that started 2 to 3 days ago. Abruptly got worse today. She arrived with a pulse ox of 71%. She was diaphoretic obvious Rester distress able to speak in 1-2 word sentences. Most of her questions werederived that she could nod yes or no. When I entered the room she was receivingthe treatment. She was on 6 Lwith a 91% saturation. Patient denies fever, chills night sweats. Patient does report mild congestion and hoarse voice. She denies sore throat. Her cough is nonproductive. She denies orthopnea or PND. She denies pedal edema. She has no history of congestive heart failure. She has no history of VTE. She has no risk factors for VTE. She denies leg pain, swelling or discoloration. She denies history of peptic ulcer disease and denies black or maroon-colored stool. PE Risk Factors: Negative for Cancer, OCP + Smoking + > 35, Prior DVT or PE, Recent immobilization, Recent surgery or Recent travel Prior similar symptoms: Yes Recent Illness/Hospitalization: No PFSH PFSH Medical History Wears glasses Cancer Post-menopausal Depression [...] mg PO DAILY 04/06/25 U nknown History inhalational spacing device (Space #1 ea 06/06/25 Unkn own Rx Chamber) prednisone 20 mg tablet 60 mg (3 x 20 mg) PO DAILY # 15 06/06/25 Unknown Rx TABLETS Allergy/AdvReac Type Severity Reaction Status Date / Time cat dander Allergy dyspnea Verified 06/06/25 10:51 Family History Other Cancer Surgical History Previous section Social History Smoking Status: Former smoker ROS ROS ED Constitutional Constitutional ED: Denies chills, fever(s), sweats or weight loss Eyes Eyes: Denies blurry vision or change in vision ENT ENT ED: Denies ear pain, rhinorrhea or sore throat Cardiovascular Cardiovascular: Reports palpitations and racing heartbeat; Denies chest pain, orthopnea or paroxysmal nocturnal dyspnea Respiratory/Chest Respiratory/Chest: Reports cough, dyspnea and dyspnea on exertion; Denies orthopnea, paroxysmal nocturnal dyspnea or sputum Gastrointestinal Gastrointestinal: Denies abdominal pain, nausea or vomiting Genitourinary Genitourinary ED: Denies dysuria, hematuria or urinary frequency Musculoskeletal Musculoskeletal: Denies arthralgias or myalgias Integumentary Denies rash Neurologic Neurologic: Denies headache(s), paresthesias or weakness Endocrine Endocrinology: Denies cold intolerance or heat intolerance Hematologic/Lymphatic Hematologic/Lymphatic: Denies easy bleeding or easy bruising EXAM Physical Exam Const Vital Signs: 06/06/25 10:48 06/06/25 10:48 06/06/25 11:11 Temperature 97 F L Temperature Source Temporal Pulse Rate 106 H 107 H Respiratory Rate 28 H 24 H Respiratory Effort Short of Breath Labored Accessory Muscle Use Respiratory Depth Shallow Respiratory Pattern Tachypnea Blood Pressure 190/115 H Blood Pressure Mean 140 Pulse Ox 71 Oxygen Delivery Method Room Air Room Air 06/06/25 11:18 06/06/25 12:00 06/06/25 12:30 Temperature Temperature Source Pulse Rate 115 H 108 H 102 H Respiratory Rate 25 H 19 H 18 Respiratory Effort Respiratory Depth Respiratory Pattern Blood Pressure 137/93 H 120/79 125/76 H Blood Pressure Mean 107 92 92 Pulse Ox 98 91 91 Oxygen Delivery Method Room Air 06/06/25 13:00 Temperature Temperature Source Pulse Rate 104 H Respiratory Rate 24 H Respiratory Effort Respiratory Depth Respiratory Pattern Blood Pressure 138/75 H Blood Pressure Mean 96 Pulse Ox 94 Oxygen Delivery Method Room Air Positive well nourished and well developed Constitutional Narrative: Patient is diaphoretic respiratory distress use of accessory muscles retractionsspeaking in 1-2 word sentences General Appearance ED: well developed; Negative for NAD HEENT atraumatic and trauma Eyes PERRL and EOMs intact bilaterally General Eye ED: Negative for pale conjunctiva or scleral icterus Neck no lymphadenopathy, supple, no meningeal signs and no JVD Resp No normal respiratory effort and No clear to auscultation bilaterally Auscultation: wheezes expiratory wheezes and throughout and diminished lung sounds diffuse Cardio regular rhythm, S1 normal heart sound, S2 normal heart sound and no murmurs Rate: tachycardic GI non-tender, non-distended and no masses Back/Spine no CVA tenderness Extremity normal to inspection Extremity Narrative: There is no asymmetry, swelling, discoloration, leg vein distention, palpable cords or tenderness along the distribution of the deep venous system. Neuro oriented x3 and CN's II-XII intact bilaterally Sensorium / Orientation: alert Psych Mood & Affect: anxious Thought Process: normal thought process Skin no wounds and skin turgor normal Skin Narrative: Diaphoretic. Patient was not cyanotic so she was on oxygen. I was told she wascyanotic. MDM MDM MDM Narrative Medical decision making narrative: Acute exacerbation asthma. Patient has no infectious symptoms other than slightcough. She has no history of PE DVT and there is no clinical evidence of DVT. Since this started 2 to 3 days ago Forei got worse not consistent with PE. Needto consider congestive heart failure, pneumothorax, pneumonia. Will obtain chest x-ray appropriate blood work to assess for anemia, poor perfusion/endorgandysfunction. History & Record Review Discussion w/independent historian: EMS personnel, Patient and Significant other Additional record(s) reviewed:: Prior ED visit Lab Data Attestation: I reviewed the patient's lab results. Lab results narrative: White count is slightly elevated 11.3 with no shift. Lactate is normal. Comprehensive metabolic panel is remarkable for glucose of 145 otherwise unremarkable. Labs: Laboratory Results - last 24 hr 06/06/25 06/06/25 10:52 11:27 WBC 11.3 H RBC 5.30 Hgb 15.3 H Hct 46.0 MCV 86.8 MCH 28.9 MCHC 33.3 RDW Std Deviation 41.6 RDW Coeff of Eboni 13.2 Plt Count 242 MPV 9.8 Immature Gran % (Auto) 0.400 Neut % (Auto) 61.4 Lymph % (Auto) 24.5 Laporte % (Auto) 7.6 Eos % (Auto) 5.4 H Baso % (Auto) 0.7 Absolute Neuts (auto) 6.9 Absolute Lymphs (auto) 2.76 Nucleated RBC % 0 Sodium 140 Potassium 4.2 Chloride 106 Carbon Dioxide 21.8 Anion Gap 12 BUN 8 Creatinine 0.68 L Estim Creat Clear Calc 77.16 Est GFR (MDRD) Non-Af 94 BUN/Creatinine Ratio 11.9 Glucose 145 H Lactic Acid 1.2 Calcium 9.4 Total Bilirubin 0.48 AST 28 ALT 18 Alkaline Phosphatase 73 Total Protein 6.7 Albumin 4.3 Globulin 2.5 Albumin/Globulin Ratio 1.7 ABG Data Attestation: I personally reviewed and interpreted this ABG as follows: Interpretation: ABG reveals a mild acidosis with a PCO2 of 49, PO2 of 121 on 6 L. This is a respiratory acidosis. ABG results: ABG 06/06/25 11:20 Specimen Type ART Sample Site R Radial pH 7.33 L Bicarbonate Actual 25.6 Total CO2 27 Base Excess 0 O2 Saturation 98 O2 % 6.0 ABG pCO2 49.0 H ABG pO2 121 H Ron Test Positive O2 Delivery Device AeroMask Vent Mode Not entered Radiography Chest X-Ray - ED: 1 View and Read by ED Physician (Single view portable chest x- ray reveals no infiltrate, pneumothorax or cephalization/CHF. Cardiac size and silhouette is normal. Osseous structureswith no acute process.) Diagnostic Testing: Clinical Impression(s) from Imaging Studies Chest X-Ray 06/06/25 11:22 IMPRESSION: No acute abnormality Reading Location: [facility] EKG Initial EKG: Attestation: I personally reviewed and interpreted this EKG as follows: Interpretation: Sinus Tachycardia (Rate is 107. NH interval is 130 ms. QRS duration 96 ms. QT duration under 70 ms. Kress is normal. The QTc is prolonged, however at 493 ms.) Treatment and Re-Evaluation :: Patient was reassessed more than 1 time. She still has slight wheezing. Pulse ox is 90 to 92% at rest. She was ambulated and her pulse ox went up to 94%. Patient feels comfortable going home. She wasinstructed to take prednisone until gone spacer was prescribed. She is to follow-up with Dr. Lunsford. Critical Care Time Critical Care Time: Yes Critical care time (excluding procedures): 30-74 minutes (31), Including time spent: (History, physical, documentation, review of prior records,), Discussing w/Patient &/or Family/Sporting Goods Salesperson and Performing Direct Patient Care at Bedside Discharge Plan Triage Chief Complaint: Shortness of Breath ED Provider: Anurag Corrales Dx/Rx/DC Orders Clinical Impression: Acute asthma exacerbation, Acute respiratory distress, Sinus tachycardia, Acuterespiratory failure with hypoxia and hypercapnia Instructions: ED Asthma, Acute (Adult) Prescriptions: New prednisone 20 mg tablet 60 mg PO DAILY Qty: 15 0RF (DME) Space Chamber Spacer See Rx Instructions .Route Qty: 1 0RF Rx Instructions: As directed No Action budesonide-formoterol [Symbicort] 1 INHALER inhaler 1 inhaler PO DAILY Patient Comments: multivit with min-folic acid [Multivitamin Gummies] 200 mcg Tablet,Chewable 1 tab PO DAILY albuterol sulfate 90 mcg/actuation HFA aerosol inhaler 2 puff inhalation Q4H levothyroxine 50 mcg tablet 50 mcg PO DAILY venlafaxine 37.5 mg tablet 37.5 mg PO DAILY oxybutynin chloride 5 mg tablet 5 mg PO BID Primary Care Provider: Geoff Perez Chi Referrals: Livan Velasquez MD [Med Staff - Active Staff] - 3-5 Days Geoff Perez Chi, MD [Primary Care Provider] - Activity Restrictions/Additional Instructions: 4 to 6 puffs of your metered-dose inhaler with the spacer was equivalent to a nebulizer treatment. Would recommend carrying this with you at all times. Take prednisone until gone. If you develop shortness of breath and did not have your nebulizer available do 4 to 6 puffs and additional 4 to 6 puffs and 15 minutes. If you are no better at that time return to the emergency department Print Language: Polish Disposition Disposition: Home, Self Care What to do if you have Problems For any increased pain, shortness of breath, bleeding, nausea or vomiting, chestpain, or any unexpected problems, contact your Primary Care Provider. Call [facility] ([phone]) or report tothe closest Emergency Room. Call 911 if necessary. 06/06/25 1341 Cosigner Signature (if applicable): CC: Dr. Geoff Perez MD ~ Signed [facility]08-15-2025 Radiology Diagnostic study note [facility] Imaging Services [address], [place] [id number] Chest 1 View (Portable) MR#: [id number] Acct: [id number] Name: CHRIS LARSEN Rep #: [id number] : 1955 F 70 From: Laine Clark MD PCP: Dr. Geoff Perez MD Status: REG E R Study:Chest 1 View (Portable) Date of Exam: 06/06/25 Exam# [id number] Ordering Dr: Kolby Corrales MD PROCEDURE: CHEST 1 VIEW (PORTABLE) 06/06/2025 REASON FOR EXAM: RESPIRATORY FAILURE, RESPIRATORY DISTRESS TECHNIQUE: Frontal view of the chest. COMPARISON: April 06, 2025, March 18, 2025 FINDINGS: Hardware: EKG leads Heart: Normal Lungs: The lungs are clear. Bones: Degenerative changes are identified within the thoracic spine. RAD/Chest 1 View (Portable) IMPRESSION: No acute abnormality Reading Location: [id number] CC: Dr. Geoff Perez MD; Dr. Anurag Corrales MD ~ Home Health Outreach Coordinator: Signed [facility]08-15-2025 Hospital Discharge instructionsAdditional Instructions 4 to 6 puffs of your metered-dose inhaler with the spacer was equivalent to a nebulizer treatment. Would recommend carrying this with you at all times. Take prednisone until gone. If you develop shortness of breath and did not have your nebulizer available do 4 to 6 puffs and additional 4 to 6 puffs and 15 minutes. If you are no better at that time [facility] Work Phone: [phone] Discharge summary [facility] Medical Records Department [address] [place] [address] Discharge Summary 04/07/25 0906 MR#: [id number] Acct: [id number] Name: CHRIS LARSEN Rep #:[id number] : 1955 70 From: Carlos morris MD PCP: Dr. Geoff Perez MD Status:ADM I NO Location: [place] [address] Providers Date of Admission: 04/06/25 Primary Care Physician: Dr. Geoff Perez MD Reason For Visit: ASTHMA EXACERBATION Diagnosis Discharge Diagnosis (1) Hypoxia: Status: Acute Code(s): R09.02 - Hypoxemia (2) Asthma exacerbation: Status: Acute Code(s): J45.901 - Unspecified asthma with (acute) exacerbation Medications at Discharge Home Medications budesonide-formoterol HFA 160 mcg-4.5 mcg/actuation aerosol inhaler (Symbicort) 1 inhaler PO DAILY 08/07/15 multivitamin with minerals-folic acid 200 mcg chewable tablet (Multivitamin Gummies) 1 tab PO DAILY04/17/23 albuterol sulfate 90 mcg/actuation aerosol inhaler 2 puff inhalation Q4H 04/06/25 levothyroxine 50 mcg tablet 50 mcg PO DAILY 04/06/25 oxybutynin chloride 5 mg tablet 5 mg PO BID 04/06/25 venlafaxine 37.5 mg tablet 37.5 mg PO DAILY 04/06/25 prednisone 20 mg tablet 40 mg (2 x 20 mg) PO BREAKFAST 7 days #14 tabs 04/07/25 Hospital Course Operations None Procedures None Summary of Care Provided Minutes Spent on Discharge: 32 Hospital Course: Per HPI: CHRIS LARSEN, is a 70 F who [...] or fever. Initially when she came in shewas requiring 2 L of oxygen via nasal cannula however after couple breathing treatments and a dose of steroids she is 93% on room air however she was hypoxicinto the80s with ambulation necessitating observation overnight. Initial troponin was 8, EKG is nonischemicand no significant medical history to have concerns for any cardiac etiology especially given the clinical findings. Hospital Course: 1. Acute hypoxic respiratory sufficiency secondary to an asthma exacerbation?70-year-old female presented to the hospital for increasing shortness of breath over the last couple days. Initially she required 2 L of oxygen via nasal cannula but after breathing treatments and the steroid dose she was stable on room air at rest but still required oxygen with ambulation. This morning she had an ambulatory pulse ox that demonstrated 91% on room air with ambulation 94 to 95% at rest. I discussed with her the plan for discharge that she expressed understanding of the risk and benefit to going home and would like to go home today. Will plan for 7-day course of prednisone without a taper and I recommendthat she use her home albuterol 3 to 4 puffs every 4-6 hours while awake of for the next 2 to 3 days until the steroids can take effect. Recommend following upwith her PCP in 3 to 5 days. 2. Hypothyroidism, anxiety, depression, incontinence are all chronic medical problems that complicate her care. Her home medications were continued where appropriate Physical Exam Narrative General: Alert, Oriented x3, Cooperative, No apparent distress HEENT: Atraumatic, PERRLA, EOMI, Normocephalic Oral: Moist Mucosa Neck: Supple, No JVD Lungs: Diminished, Normal air movement, No rhonchi, no wheeze, No rales Cardiovascular: Regular rate, Regular [...] and pain Psych/Mental Status: Normal Affect, Appropriate Weight / BMI Weight Weight: 184 lb 8.43 oz Body Mass Index (BMI) 27.2 ABG / Lab / Microbiology Data 04/06/25 15:00 04/06/25 15:00 Laboratory: Laboratory Results - last 24 hr 04/06/25 15:00: WBC 7.8, RBC 5.30, Hgb 15.4 H, Hct 44.9, MCV 84.7, MCH 29.1, MCHC 34.3, RDW Std Deviation 41.7, RDW Coeff of Eboni 13.5, Plt Count 234, MPV 8.9, Immature Gran % (Auto) 0.400, Neut % (Auto) 57.8, Lymph % (Auto) 20.6, Laporte% (Auto) 12.2 H, Eos % (Auto) 8.2 H, Baso % (Auto) 0.8, Absolute Neuts (auto) 4.5, Absolute Lymphs (auto) 1.60, Nucleated RBC % 0, Sodium 141, Potassium 3.9, Chloride 104, Carbon Dioxide 25.7, Anion Gap 11, BUN 8, Creatinine 0.68 L, EstimCreat Clear Calc 77.95, EstGFR (MDRD) Non-Af 94, BUN/Creatinine Ratio 11.7, Glucose 121 H, Calcium 9.4, Troponin T High Sens 8 04/06/25 18:44: Troponin T Hi Sens 2 Hr 7 04/06/25 20:26: Troponin T Hi Sens 4Hr 7 Microbiology: Microbiology 04/06/25 15:19 Mucosa - Nose SARS-CoV-2, Influenza & RSV (PCR) - Final Radiography Diagnostic Testing: Radiology Impression Chest X-Ray 04/06/25 15:50 IMPRESSION: No Acute Findings. Reading Location: [id number] D/C Instructions Discharge Diet: No restrictions Call your doctor if you observe: Fever of 101 or Higher, Shortness of breath, Dizziness, Fainting spells, Swelling in the ankles, Chest pain and Increased palpitations (irregular heartbeat) DC O2, CPAP, BIPAP Needs Home O2 Discharge instructions: No Meaningful Use Info Meaningful Use Meaningful Use Diagnoses (Choose all that apply): None applicable Ischemic Stroke Statin Dosing Therapy Reference: STATIN DOSE THERAPY REFERENCE: * Patients > 75 years receive moderate or high dose statin therapy. * Patients 75 years or YOUNGER should receive HIGH intensity statin dose unless contraindicated. You will be required to document reason for non-treatment if statin daily dose does not meet guidelines. HIGH DOSE STATIN THERAPY DAILY Atorvastatin > than or = to 40 mg Rosuvastatin > than or = to 20 mg Amlodipine + Atorvastatin > than or = to 2.5/40 mg Ezetimibe + Simvastatin 10/80 mg Simvastatin 80mg Discharge Plan Admission Admit Date/Time: 04/06/25 18:40 Attending Provider: Carlos Barajas Primary Care Provider: Geoff Perez Chi Instructions Additional Instructions / Restrictions: Use your albuterol rescue inhaler every 4 hours while awake for the next 2-3 days to allow time forthe steroids to work. Recommend 3-4 puff of the albuteroleach time. Discharge Orders/Prescriptions Prescriptions: New prednisone 20 mg Tablet 40 mg PO BREAKFAST 7 Days Qty: 14 0RF Continued budesonide-formoterol [Symbicort] 1 INHALER inhaler 1 inhaler PO DAILY Patient Comments: multivit with min-folic acid [Multivitamin Gummies] 200 mcg Tablet,Chewable 1 tab PO DAILY albuterol sulfate 90 mcg/actuation HFA aerosol inhaler 2 puff inhalation Q4H levothyroxine 50 mcg tablet 50 mcg PO DAILY venlafaxine 37.5 mg tablet 37.5 mg PO DAILY oxybutynin chloride 5 mg tablet 5 mg PO BID Referrals / Follow Up: Geoff Preez Chi, MD [Primary Care Provider] - Within 1 Week Disposition Disposition (needs filled in before D/C Order can be placed): Home, Self Care Charges/Coding Visit Charges Inpatient E&M: 36185 Disch Hosp >30min 04/07/25913 Cosigner Signature (if applicable): CC: Dr. Carlos Barajas MD; Dr. Geoff Perez MD~ Signed [facility]06-16-2025 [facility] Medical Records Department [address] [place] [address] Discharge Summary 04/07/25905 MR#: [id number] Acct: [id number] Name: CHRIS LARSEN Rep #: [id number] : 1955 70 From: Carlos Barajas MD PCP: Dr. Geoff Perez MD Status:ADM [place] Location: [place] [address] Providers Date of Admission: 04/06/25 Primary Care Physician: Dr. Geoff Perez MD Reason For Visit: ASTHMA EXACERBATION Diagnosis Discharge Diagnosis (1) Hypoxia: Status: Acute Code(s): R09.02 - Hypoxemia (2) Asthma exacerbation: Status: Acute Code(s): J45.901 - Unspecified asthma with (acute) exacerbation Medications at Discharge Home Medications budesonide-formoterol HFA 160 mcg-4.5 mcg/actuation aerosol inhaler (Symbicort) 1 inhaler PO DAILY 08/07/15 multivitamin with minerals-folic acid 200 mcg chewable tablet (Multivitamin Gummies) 1 tab PO DAILY 04/17/23 albuterol sulfate 90 mcg/actuation aerosol inhaler 2 puff inhalation Q4H 04/06/25 levothyroxine 50 mcg tablet 50 mcg PO DAILY 04/06/25 oxybutynin chloride 5 mg tablet 5 mg PO BID 04/06/25 venlafaxine 37.5 mg tablet 37.5 mg PO DAILY 04/06/25 prednisone 20 mg tablet 40 mg (2 x 20 mg) PO BREAKFAST 7 days #14 tabs 04/07/25 Hospital Course Operations None Procedures None Summary of Care Provided Minutes Spent on Discharge: 32 Hospital Course: Per HPI: CHRIS LARSEN, is a 70 F who [...] however after couple breathing treatments and a dose of steroids she is 93% on room air however she was hypoxic into the 80s with ambulation necessitating observation overnight. Initial troponin was 8, EKG is nonischemic and no significant medical history to have concerns for any cardiac etiology especially given the clinical findings. Hospital Course: 1. Acute hypoxic respiratory sufficiency secondary to an asthma exacerbation???70-year-old female presented to the hospital for increasing shortness of breath over the last couple days. Initially she required 2 L of oxygen via nasal cannula but after breathing treatments and the steroid dose she was stable on room air at rest but still required oxygen with ambulation. This morning she had an ambulatory pulse ox that demonstrated 91% on room air with ambulation 94 to 95% at rest. I discussed with her the plan for discharge that she expressed understanding of the risk and benefit to going home and would like to go home today. Will plan for 7-day course of prednisone without a taper and I recommend that she use her home albuterol 3 to 4 puffs every 4-6 hours while awake of for the next 2 to 3 days until the steroids can take effect. Recommend following up with her PCP in 3 to 5 days. 2. Hypothyroidism, anxiety, depression, incontinence are all chronic medical problems that complicate her care. Her home medications were continued where appropriate Physical Exam Narrative General: Alert, Oriented x3, Cooperative, No apparent distress HEENT: Atraumatic, PERRLA, EOMI, Normocephalic Oral: Moist Mucosa Neck: Supple, No JVD Lungs: Diminished, Normal air movement, No rhonchi, no wheeze, No rales Cardiovascular: Regular rate, Regular [...] and pain Psych/Mental Status: Normal Affect, Appropriate Weight / BMI Weight Weight: 184 lb 8.43 oz Body Mass Index (BMI) 27.2 ABG / Lab / Microbiology Data 04/06/25 15:00 04/06/25 15:00 Laboratory: Laboratory Results - last 24 hr 04/06/25 15:00: WBC 7.8, RBC 5.30, Hgb 15.4 H, Hct 44.9, MCV 84.7, MCH 29.1, MCHC 34.3, RDW Std Deviation 41.7, RDW Coeff of Eboni 13.5, Plt Count 234, MPV 8.9, Immature Gran % (Auto) 0.400, Neut % (Auto) 57.8, Lymph % (Auto) 20.6, Laporte % (Auto) 12.2 H, Eos % (Auto) 8.2 H, Baso % (Auto) 0.8, Absolute Neuts (auto) 4.5, Absolute Lymphs (auto) 1.60, Nucleated RBC % 0, Sodium 141, Potassium 3.9, Chloride 104, Carbon Dioxide 25.7, Anion Gap 11, BUN 8, Creatinine 0.68 L, Estim Creat Clear Calc 77.95, Est GFR (MDRD) Non-Af 9 (more content not included)...[facility]06-16-2025 Discharge summary [facility] Medical Records Department [address] [place] [address] Instructions for Home/Discharge Instructions 04/07/25 0809 MR#: [id number] Acct: [id number] Name: CHRIS LARSEN Rep #:[id number] : 1955 70 From: Carlos morris MD PCP: Dr. Geoff Perez MD Status:ADM I NO Discharge Instructions Diet Discharge Diet: No restrictions DC O2, CPAP, BIPAP needs Home O2 Discharge instructions: No Dressing / Incision Discharge Activity: Return to Normal Activity Dressing / Incision Call your doctor if you observe: Fever of 101 or Higher, Shortness of breath, Dizziness, Fainting spells, Swelling in the ankles, Chest pain and Increased palpitations (irregular heartbeat) Follow Up Care Test Results: Test results from this visit will be discussed in further detail at your follow- up appointment, if applicable. Discharge Plan Admission Admit Date/Time: 04/06/25 18:40 Attending Provider: Carlos Barajas Primary Care Provider: Geoff Perez Chi Instructions Additional Instructions / Restrictions: Use your albuterol rescue inhaler every 4 hours while awake for the next 2-3 days to allow time forthe steroids to work. Recommend 3-4 puff of the albuteroleach time. Discharge Orders/Prescriptions Prescriptions: New prednisone 20 mg Tablet 40 mg PO BREAKFAST 7 Days Qty: 14 0RF Continued budesonide-formoterol [Symbicort] 1 INHALER inhaler 1 inhaler PO DAILY Patient Comments: multivit with min-folic acid [Multivitamin Gummies] 200 mcg Tablet,Chewable 1 tab PO DAILY albuterol sulfate 90 mcg/actuation HFA aerosol inhaler 2 puff inhalation Q4H levothyroxine 50 mcg tablet 50 mcg PO DAILY venlafaxine 37.5 mg tablet 37.5 mg PO DAILY oxybutynin chloride 5 mg tablet 5 mg PO BID Referrals / Follow Up: Geoff Perez Chi, MD [Primary Care Provider] - Within 1 Week Disposition Disposition (needs filled in before D/C Order can be placed): Home, Self Care 04/07/25 0811Carlos Barajas MD CC: Dr. Geoff Perez MD ~ Signed [facility]06-16-2025 Discharge summary Author Shay Aguilar [facility] Note Date/Time April 07, 2025 12:1 3am [facility] Medical Records Department [address] [place] [address] Emergency Department Summary 04/06/25 MR#: [id number] Acct: [id number] Name: CHRIS LARSEN Rep #:[id number] : 1955 70 From: Shay Pisano PCP: Dr. Geoff Perez MD Status:ADM I NO [facility] History of Present Illness Chief Complaint: Shortness of Breath Informant: patient and spouse/S.O. Narrative Narrative: 70-year-old female presenting to the emergency room by private vehicle with a chief complaint of shortness of breath. Patient notes a history of asthma. Shestates that over the past several days she has had a progressive worsening shortness of breath. She had to come home from work early on Monday. states he tried to get her to come to the emergency department yesterday. Todayhusband states that today she was noticeably more short of breath. Nursing notes a pulse ox of 83% on room air. She does not wear home oxygen. She uses Symbicort and has a rescue inhaler of albuterol. She denies history of CHF. Nochest pain. She notes a occasionally productive cough. No fever or chills. Nodiarrhea or vomiting. No significant rhinorrhea. She states she has never had to be hospitalized for her asthma. She is a non-smoker. [facility] Medical History Wears glasses Cancer Post-menopausal Depression [...] cat dander Allergy dyspnea Verified 04/06/25 14:46 Surgical History Previous section Social History Smoking Status: Former smoker ROS ROS ED Constitutional Constitutional ED: Denies chills, fever(s), sweats or weight loss Eyes Eyes: Denies change in vision or diplopia ENT ENT ED: Denies ear pain, rhinorrhea or sore throat Cardiovascular Cardiovascular: Denies chest pain, orthopnea, palpitations or racing heartbeat Respiratory/Chest Respiratory/Chest: Reports cough, dyspnea, dyspnea on exertion and sputum; Denies orthopnea Gastrointestinal Gastrointestinal: Denies abdominal pain, diarrhea, nausea or vomiting Genitourinary Genitourinary ED: Denies dysuria, hematuria or urinary frequency Musculoskeletal Musculoskeletal: Denies arthralgias or myalgias Integumentary Denies abscess or rash Neurologic Neurologic: Denies headache(s), paresthesias or weakness Psychiatric Psychiatric: Denies anxiety, depression, suicidal ideation or suicidal thoughts Endocrine Endocrinology: Denies polydipsia, polyphagia or polyuria Allergic/Immunologic Allergic/Immunologic ED: Denies mouth swelling, tongue swelling or urticaria EXAM Physical Exam Const Vital Signs: 04/06/25 14:43 04/06/25 14:46 04/06/25 [...] Method Room Air Oxygen Flow Rate (L/min) Positive well nourished and well developed General Appearance ED: well developed HEENT Reports normocephalic, head/scalp atraumatic and moist mucous membranes Eyes PERRL and EOMs intact bilaterally Neck no lymphadenopathy, supple and no JVD Resp Resp Narrative: Patient is tachypneic with both inspiratory and expiratory wheezing as well as bilateral rhonchi throughout. Cardio regular rate, regular rhythm and no murmurs Cardio Narrative: +2 pulses upper and lower extremities Rate: tachycardic GI normal to inspection, nondistended, normoactive bowel sounds and non-tender Palpation: soft Back/Spine no CVA tenderness and normal ROM Extremity normal to inspection General Extremety ED: Negative for edema General Extremity: Negative for edema Neuro oriented x3 and CN's II-XII intact bilaterally Sensorium / Orientation: alert Motor Exam: strength 5/5 throughout Psych mental status grossly normal Mood & Affect: Negative for depressed or tearful Skin no rashes or lesions noted and no wounds MDM MDM MDM Narrative Medical decision making narrative: Differential diagnosis includes but not limited to congestive heart failure asthma exacerbation pleural effusion pneumonia bronchitis pulmonary embolism acute coronary syndrome viral syndrome EKG done upon arrival shows a sinus tachycardia at a ventricular rate of 108 bpm. White count 7.8 hemoglobin 15.4 platelet count of 234. BMP shows a creatinine 0.68 glucose of 121 troponin is 8. My independent interpretation of the chest x-ray is no acute process. Patient received breathing treatments and Solu-Medrol. She is feeling significantly better. Repeat lung auscultation shows some end expiratory wheeze. She is satting around 94% on room air currently. Patient was ambulated. She dropped to 85%. Patient was allowed to rest. We reambulated her after about another hour and she again dropped into the 80s with a heart rate in the 120s. Using shared decision making plan of care will be observationtonight in the hospital. History & Record Review Discussion w/independent historian: Patient and Significant other Additional record(s) reviewed:: Prior ED visit and Prior labs Lab Data Attestation: I reviewed the patient's lab results. Labs: Laboratory Results - last 24 hr 04/06/25 15:00 WBC 7.8 RBC 5.30 Hgb 15.4 H Hct 44.9 MCV 84.7 MCH 29.1 MCHC 34.3 RDW Std Deviation 41.7 RDW Coeff of Eboni 13.5 Plt Count 234 MPV 8.9 Immature Gran % (Auto) 0.400 Neut % (Auto) 57.8 Lymph % (Auto) 20.6 Laporte % (Auto) 12.2 H Eos % (Auto) 8.2 H Baso % (Auto) 0.8 Absolute Neuts (auto) 4.5 Absolute Lymphs (auto) 1.60 Nucleated RBC % 0 Sodium 141 Potassium 3.9 Chloride 104 Carbon Dioxide 25.7 Anion Gap 11 BUN 8 Creatinine 0.68 L Estim Creat Clear Calc 77.95 Est GFR (MDRD) Non-Af 94 BUN/Creatinine Ratio 11.7 Glucose 121 H Calcium 9.4 Troponin T High Sens 8 Radiography Diagnostic Testing: Clinical Impression(s) from Imaging Studies Chest X-Ray 04/06/25 15:50 IMPRESSION: No Acute Findings. Reading Location: [facility] EKG Initial EKG: Attestation: I personally reviewed and interpreted this EKG as follows: Comments: Sinus tachycardia ventricular rate of 108 bpm. Management Discussion w/another healthcare provider: Hospitalist Discharge Plan Triage Chief Complaint: Shortness of Breath ED Provider: Shay Simpson Dx/Rx/DC Orders Clinical Impression: Asthma exacerbation, Hypoxia Prescriptions: No Action budesonide-formoterol [Symbicort] 1 INHALER inhaler 1 inhaler PO DAILY Patient Comments: multivit with min-folic acid [Multivitamin Gummies] 200 mcg Tablet,Chewable 1 tab PO DAILY albuterol sulfate 90 mcg/actuation HFA aerosol inhaler 2 puff inhalation Q4H levothyroxine 50 mcg tablet 50 mcg PO DAILY venlafaxine 37.5 mg tablet 37.5 mg PO DAILY oxybutynin chloride 5 mg tablet 5 mg PO BID Primary Care Provider: Geoff Perez Chi Referrals: Geoff Perez Chi, MD [Primary Care Provider] - Print Language: Polish What to do if you have Problems For any increased pain, shortness of breath, bleeding, nausea or vomiting, chestpain, or any unexpected problems, contact your Primary Care Provider. Call [facility] ([phone]) or report to the closest Emergency Room. Call 911 if necessary. 04/07/25 0013 <Electronically signed by Shay Simpson DO> Cosigner Signature (if applicable): CC: Dr. Geoff Perez MD ~ Signed [facility] Work Phone: [phone] 455-916406-16-2025 Discharge summary [facility] Medical Records Department [address] [place] [address] Emergency Department Summary 04/06/25 MR#: [id number] Acct: [id number] Name: CHRIS LARSEN Rep #:[id number] : 1955 70 From: Shay Pisano PCP: Dr. Geoff Perez MD Status:ADM I NO Location: MS3 FR502-0 HPI History of Present Illness Chief Complaint: Shortness of Breath Informant: patient and spouse/S.O. Narrative Narrative: 70-year-old female presenting to the emergency room by private vehicle with a chief complaint of shortness of breath. Patient notes a history of asthma. Shestates that over the past several days she has had a progressive worsening shortness of breath. She had to come home from work early on Monday. states he tried to get her to come to the emergency department yesterday. Todayhusband states that today she was noticeably more short of breath. Nursing notes a pulse ox of 83% on room air. She does not wear home oxygen. She uses Symbicort and has a rescue inhaler of albuterol. She denies history of CHF. Nochest pain. She notes a occasionally productive cough. No fever or chills. Nodiarrhea or vomiting. No significant rhinorrhea. She states she has never had to be hospitalized for her asthma. She is a non-smoker. [facility] Medical History Wears glasses Cancer Post-menopausal Depression [...] cat dander Allergy dyspnea Verified 04/06/25 14:46 Surgical History Previous section Social History Smoking Status: Former smoker ROS ROS ED Constitutional Constitutional ED: Denies chills, fever(s), sweats or weight loss Eyes Eyes: Denies change in vision or diplopia ENT ENT ED: Denies ear pain, rhinorrhea or sore throat Cardiovascular Cardiovascular: Denies chest pain, orthopnea, palpitations or racing heartbeat Respiratory/Chest Respiratory/Chest: Reports cough, dyspnea, dyspnea on exertion and sputum; Denies orthopnea Gastrointestinal Gastrointestinal: Denies abdominal pain, diarrhea, nausea or vomiting Genitourinary Genitourinary ED: Denies dysuria, hematuria or urinary frequency Musculoskeletal Musculoskeletal: Denies arthralgias or myalgias Integumentary Denies abscess or rash Neurologic Neurologic: Denies headache(s), paresthesias or weakness Psychiatric Psychiatric: Denies anxiety, depression, suicidal ideation or suicidal thoughts Endocrine Endocrinology: Denies polydipsia, polyphagia or polyuria Allergic/Immunologic Allergic/Immunologic ED: Denies mouth swelling, tongue swelling or urticaria EXAM Physical Exam Const Vital Signs: 04/06/25 14:43 04/06/25 14:46 04/06/25 [...] Method Room Air Oxygen Flow Rate (L/min) Positive well nourished and well developed General Appearance ED: well developed HEENT Reports normocephalic, head/scalp atraumatic and moist mucous membranes Eyes PERRL and EOMs intact bilaterally Neck no lymphadenopathy, supple and no JVD Resp Resp Narrative: Patient is tachypneic with both inspiratory and expiratory wheezing as well as bilateral rhonchi throughout. Cardio regular rate, regular rhythm and no murmurs Cardio Narrative: +2 pulses upper and lower extremities Rate: tachycardic GI normal to inspection, nondistended, normoactive bowel sounds and non-tender Palpation: soft Back/Spine no CVA tenderness and normal ROM Extremity normal to inspection General Extremety ED: Negative for edema General Extremity: Negative for edema Neuro oriented x3 and CN's II-XII intact bilaterally Sensorium / Orientation: alert Motor Exam: strength 5/5 throughout Psych mental status grossly normal Mood & Affect: Negative for depressed or tearful Skin no rashes or lesions noted and no wounds MDM MDM MDM Narrative Medical decision making narrative: Differential diagnosis includes but not limited to congestive heart failure asthma exacerbation pleural effusion pneumonia bronchitis pulmonary embolism acute coronary syndrome viral syndrome EKG done upon arrival shows a sinus tachycardia at a ventricular rate of 108 bpm. White count 7.8 hemoglobin 15.4 platelet count of 234. BMP shows a creatinine 0.68 glucose of 121 troponin is 8. My independent interpretation of the chest x-ray is no acute process. Patient received breathing treatments and Solu-Medrol. She is feeling significantly better. Repeat lung auscultation shows some end expiratory wheeze. She is satting around 94% on room air currently.Patient was ambulated. She dropped to 85%. Patient was allowed to rest. We reambulated her after about another hour and she again dropped into the 80s with a heart rate in the 120s. Using shared decision making plan of care will be observationtonight in the hospital. History & Record Review Discussion w/independent historian: Patient and Significant other Additional record(s) reviewed:: Prior ED visit and Prior labs Lab Data Attestation: I reviewed the patient's lab results. Labs: Laboratory Results - last 24 hr 04/06/25 15:00 WBC 7.8 RBC 5.30 Hgb 15.4 H Hct 44.9 MCV 84.7 MCH 29.1 MCHC 34.3 RDW Std Deviation 41.7 RDW Coeff of Eboni 13.5 Plt Count 234 MPV 8.9 Immature Gran % (Auto) 0.400 Neut % (Auto) 57.8 Lymph % (Auto) 20.6 Laporte % (Auto) 12.2 H Eos % (Auto) 8.2 H Baso % (Auto) 0.8 Absolute Neuts (auto) 4.5 Absolute Lymphs (auto) 1.60 Nucleated RBC % 0 Sodium 141 Potassium 3.9 Chloride 104 Carbon Dioxide 25.7 Anion Gap 11 BUN 8 Creatinine 0.68 L Estim Creat Clear Calc 77.95 Est GFR (MDRD) Non-Af 94 BUN/Creatinine Ratio 11.7 Glucose 121 H Calcium 9.4 Troponin T High Sens 8 Radiography Diagnostic Testing: Clinical Impression(s) from Imaging Studies Chest X-Ray 04/06/25 15:50 IMPRESSION: No Acute Findings. Reading Location: [facility] EKG Initial EKG: Attestation: I personally reviewed and interpreted this EKG as follows: Comments: Sinus tachycardia ventricular rate of 108 bpm. Management Discussion w/another healthcare provider: Hospitalist Discharge Plan Triage Chief Complaint: Shortness of Breath ED Provider: Shay Simpson Dx/Rx/DC Orders Clinical Impression: Asthma exacerbation, Hypoxia Prescriptions: No Action budesonide-formoterol [Symbicort] 1 INHALER inhaler 1 inhaler PO DAILY Patient Comments: multivit with min-folic acid [Multivitamin Gummies] 200 mcg Tablet,Chewable 1 tab PO DAILY albuterol sulfate 90 mcg/actuation HFA aerosol inhaler 2 puff inhalation Q4H levothyroxine 50 mcg tablet 50 mcg PO DAILY venlafaxine 37.5 mg tablet 37.5 mg PO DAILY oxybutynin chloride 5 mg tablet 5 mg PO BID Primary Care Provider: Geoff Perez Chi Referrals: Geoff Perez Chi, MD [Primary Care Provider] - Print Language: Polish What to do if you have Problems For any increased pain, shortness of breath, bleeding, nausea or vomiting, chestpain, or any unexpected problems, contact your Primary Care Provider. Call [facility] ([phone]) or report tothe closest Emergency Room. Call 911 if necessary. 04/07/25 0013 Cosigner Signature (if applicable): CC: Dr. Geoff Perez MD ~ Signed [facility]06-15-2025 History and physical note Author Carlos Barajas [facility] Note Date/Time April 06, 2025 6:49 pm [facility] Medical Records Department [address] [place] [address] H&P Exam - Hospitalist 04/06/25 1843 MR#: [id number] Acct: [id number] Name: CHRIS LARSEN Rep #:[id number] : 1955 70 From: Carlos morris MD PCP: Dr. Geoff Perez MD Status:ADM I NO Location: [facility] XX449-5 HPI - General General Date of Admission: [...] cardiac etiology especially given the clinical findings. [facility] Medical History Wears glasses Cancer Post-menopausal Depression [...] % (Auto) 57.8, Lymph % (Auto) 20.6, Laporte% (Auto) 12.2 H, Eos % (Auto) 8.2 [...] 15:50 IMPRESSION: No Acute Findings. Reading Location: [facility] Assessment & Plan Assessment/Plan (1) Hypoxia: (2) [...] DVT: Ambulation Charges/Coding Visit Charges Inpatient E&M: 41309 Init Hosp L2 04/06/251848 <Electronically signed by Carlos Barajas MD> Cosigner Signature (if applicable): CC: Dr. Carlos Barajas MD; Dr. Geoff Perez MD~ Signed [facility] Work Phone: 1(384) 164-417206-15-2025 Evaluation note* Diagnosis Onset Date Resolution Status Admit Date Asthma exacerbation acute April 06, 2025 6:40pm Hypoxia acute April 06 6:40pm [facility] Work Phone: 1(569) 509-659406-15-2025 Evaluation note* Diagnosis Onset Date Resolution Status Admit Date Hypoxia acute April 06 6:40pm Asthma exacerbation resolved April 06, 2025 6:40pm [facility] Work Phone: 1(138) 518-188006-15-2025 History and physical note [facility] Medical Records Department [address] [place] [address] H&P Exam - Hospitalist 04/06/251842 MR#: [id number] Acct: [id number] Name: CHRIS LARSEN Rep #:[id number] : 1955 70 From: Carlos morris MD PCP: Dr. Geoff Perez MD Status:ADM I NO Location: [facility] AL031-1 HPI - General General Date of Admission: [...] cardiac etiology especially given the clinical findings. [facility] Medical History Wears glasses Cancer Post-menopausal Depression [...] % (Auto) 57.8, Lymph % (Auto) 20.6, Laporte% (Auto) 12.2 H, Eos % (Auto) 8.2 H, Baso % (Auto) 0.8, Absolute Neuts (auto) 4.5, Absolute Lymphs (auto) 1.60, Nucleated RBC % 0, Sodium 141, Potassium 3.9, Chloride 104, Carbon Dioxide 25.7, Anion Gap 11, BUN 8, Creatinine 0.68 L, EstimCreat Clear Calc 77.95, EstGFR (MDRD) Non-Af 94, BUN/Creatinine Ratio 11.7, Glucose 121 H, Calcium 9.4, Troponin T High Sens 8 Micro: Microbiology 04/06/25 15:19 Mucosa - Nose SARS-CoV-2, Influenza & RSV (PCR) - Final Imaging Radiology Impression Chest X-Ray 04/06/25 15:50 IMPRESSION: No Acute Findings. Reading Location: [id number] Assessment & Plan Assessment/Plan (1) Hypoxia: (2) [...] DVT: Ambulation Charges/Coding Visit Charges Inpatient E&M: 49585 Init Hosp L2 04/06/25 1849 Cosigner Signature (if applicable): CC: Dr. Carlos Barajas MD; Dr. Geoff Perez MD~ Signed [facility]06-15-2025 Radiology Diagnostic study note [facility] Imaging Services [address] [place], [place] [address] Chest 1 View (Portable) MR#: [id number] Acct: [id number] Name: CHRIS LARSEN Rep #: [id number] : 1955 F From: Angélica Jenkins MD PCP: Dr. Geoff Peerz MD Status: REG E R Study:Chest 1 View (Portable) Date of Exam: 04/06/25 Exam# [id number] Ordering Dr: Shree Simpson DO PROCEDURE: CHEST [...] (Portable) IMPRESSION: No Acute Findings. Reading Location: [facility] CC: Dr. Shay Simpson DO; Dr. Geoff Perez MD ~ Home Health Outreach Coordinator: Signed [facility]05-28-2025 Radiology Diagnostic study note [facility] Imaging Services [address] [place], [place] [address] Chest PA and Lateral MR#: [id number] Acct: [id number] Name: CHRIS LARSEN Rep #: [id number] : 1955 F From: Delvis Ashraf MD PCP: Dr. Geoff Perez MD Status: REG C LI Study:Chest PA and Lateral Date of Exam: 03/18/25 Exam# [id number] Ordering Dr: Geoff Perez MD PROCEDURE: CHEST PA AND LATERAL 03/18/2025 REASON FOR EXAM: SOB TECHNIQUE: Frontal and lateral views of the chest. COMPARISON: 06/07/2023 FINDINGS: The lungs appear clear. The cardiac and mediastinal contours appear within limits. Old appearing right-sided rib fracture deformities. Upper lumbar compression deformity again noted. RAD/Chest PA and Lateral IMPRESSION: No evidence of acute disease. Reading Location: [id number] CC: Dr. Geoff Perez MD ~ Home Health Outreach Coordinator: Signed [facility]03-18-2025 Radiology Diagnostic study note [facility] Imaging Services [address] [place] [address] CTA Chest W/WO Contrast MR#: [id number] Acct: [id number] Name: CHRIS LARSEN Rep #: [id number] : 1955 F 69 From: Aarti Hyde MD PCP: Dr. Geoff Perez MD Status: [facility] Study:CTA Chest W/WO Contrast Date of Exam: 01/07/25 Exam# [id number] Ordering Dr: Geoff Perez MD EXAM: CT Angiography Chest Without and With Intravenous Contrast CLINICAL INDICATION: SOB, ELEVATED D-DIMER TECHNIQUE: Axial computed tomographic angiography images of the chest without and with intravenous contrast. This CT exam was performed using one or more of the following dose reduction techniques: automated exposure control,adjustment of the mA and/or kV according to [...] Lingular atelectasis or scarring. No mass. No significanteffusion. No pneumothorax. HEART: Unremarkable. No cardiomegaly. No significant pericardial effusion. No evidence of RV dysfunction. BONES/JOINTS: No acute fracture. No dislocation. SOFT TISSUES: Unremarkable. LYMPH NODES: Unremarkable. No enlarged lymph nodes. CT/CTA Chest W/WO Contrast IMPRESSION: No pulmonary embolism is identified. Some of the distal pulmonary arteries cannot be evaluated due to suboptimal opacification. Reading Location: [facility] CC: Dr. Geoff Perez MD ~ Home Health Outreach Coordinator: Signed [facility]06-30-2023 Procedure [facility] 04-21-2023 [facility] Author Carlos Barajas [facility] Note Date/Time April 07, 2025 8:11 am [facility] Medical Records Department [address] [place] [address] Instructions for Home/Discharge Instructions 04/07/25 0809 MR#: [id number] Acct: [id number] Name: CHRIS LARSEN Rep #:[id number] : 1955 70 From: Carlos morris MD PCP: Dr. Geoff Perez MD Status:ADM I NO Discharge Instructions Diet Discharge Diet: No restrictions DC O2, CPAP, BIPAP needs Home O2 Discharge instructions: No Dressing / Incision Discharge Activity: Return to Normal Activity Dressing / Incision Call your doctor if you observe: Fever of 101 or Higher, Shortness of breath, Dizziness, Fainting spells, Swelling in the ankles, Chest pain and Increased palpitations (irregular heartbeat) Follow Up Care Test Results: Test results from this visit will be discussed in further detail at your follow- up appointment, if applicable. Discharge Plan Admission Admit Date/Time: 04/06/25 18:40 Attending Provider: Carlos Barajas Primary Care Provider: Geoff Perez Chi Instructions Additional Instructions / Restrictions: Use your albuterol rescue inhaler every 4 hours while awake for the next 2-3 days to allow time for the steroids to work. Recommend 3-4 puff of the albuteroleach time. Discharge Orders/Prescriptions Prescriptions: New prednisone 20 mg Tablet 40 mg PO BREAKFAST 7 Days Qty: 14 0RF Continued budesonide-formoterol [Symbicort] 1 INHALER inhaler 1 inhaler PO DAILY Patient Comments: multivit with min-folic acid [Multivitamin Gummies] 200 mcg Tablet,Chewable 1 tab PO DAILY albuterol sulfate 90 mcg/actuation HFA aerosol inhaler 2 puff inhalation Q4H levothyroxine 50 mcg tablet 50 mcg PO DAILY venlafaxine 37.5 mg tablet 37.5 mg PO DAILY oxybutynin chloride 5 mg tablet 5 mg PO BID Referrals / Follow Up: Geoff Perez Chi, MD [Primary Care Provider] - Within 1 Week Disposition Disposition (needs filled in before D/C Order can be placed): Home, Self Care 04/07/25 0811<Electronically signed by Carlos Barajas MD>Carlos Barajas MD CC: Dr. Geoff Perez MD ~ Signed [facility] Work Phone: Discharge summary Author Carlos Barajas [facility] Note Date/Time April 07, 2025 9:14 am [facility] Medical Records Department [address] [place] [address] Discharge Summary 04/07/25905 MR#: [id number] Acct: [id number] Name: CHRIS LARSEN Rep #:[id number] : 1955 70 From: Carlos morris MD PCP: Dr. Geoff Perez MD Status:ADM I NO Location: [place] [address] Providers Date of Admission: 04/06/25 Primary Care Physician: Dr. Geoff Perez MD Reason For Visit: ASTHMA EXACERBATION Diagnosis Discharge Diagnosis (1) Hypoxia: Status: Acute Code(s): R09.02 - Hypoxemia (2) Asthma exacerbation: Status: Acute Code(s): J45.901 - Unspecified asthma with (acute) exacerbation Medications at Discharge Home Medications budesonide-formoterol HFA 160 mcg-4.5 mcg/actuation aerosol inhaler (Symbicort) 1 inhaler PO DAILY 08/07/15 multivitamin with minerals-folic acid 200 mcg chewable tablet (Multivitamin Gummies) 1 tab PO DAILY 04/17/23 albuterol sulfate 90 mcg/actuation aerosol inhaler 2 puff inhalation Q4H 04/06/25 levothyroxine 50 mcg tablet 50 mcg PO DAILY 04/06/25 oxybutynin chloride 5 mg tablet 5 mg PO BID 04/06/25 venlafaxine 37.5 mg tablet 37.5 mg PO DAILY 04/06/25 prednisone 20 mg tablet 40 mg (2 x 20 mg) PO BREAKFAST 7 days #14 tabs 04/07/25 Hospital Course Operations None Procedures None Summary of Care Provided Minutes Spent on Discharge: 32 Hospital Course: Per HPI: CHRIS LARSEN, is a 70 F who [...] or fever. Initially when she came in shewas requiring 2 L of oxygen via nasal cannula however after couple breathing treatments and a dose of steroids she is 93% on room air however she was hypoxicinto the 80s with ambulation necessitating observation overnight. Initial troponin was 8, EKG is nonischemic and no significant medical history to have concerns for any cardiac etiology especially given the clinical findings. Hospital Course: 1. Acute hypoxic respiratory sufficiency secondary to an asthma exacerbation?70-year-old female presented to the hospital for increasing shortness of breath over the last couple days. Initially she required 2 L of oxygen via nasal cannula but after breathing treatments and the steroid dose she was stable on room air at rest but still required oxygen with ambulation. This morning she had an ambulatory pulse ox that demonstrated 91% on room air with ambulation 94 to 95% at rest. I discussed with her the plan for discharge that she expressed understanding of the risk and benefit to going home and would like to go home today. Will plan for 7-day course of prednisone without a taper and I recommendthat she use her home albuterol 3 to 4 puffs every 4-6 hours while awake of for the next 2 to 3 days until the steroids can take effect. Recommend following upwith her PCP in 3 to 5 days. 2. Hypothyroidism, anxiety, depression, incontinence are all chronic medical problems that complicate her care. Her home medications were continued where appropriate Physical Exam Narrative General: Alert, Oriented x3, Cooperative, No apparent distress HEENT: Atraumatic, PERRLA, EOMI, Normocephalic Oral: Moist Mucosa Neck: Supple, No JVD Lungs: Diminished, Normal air movement, No rhonchi, no wheeze, No rales Cardiovascular: Regular rate, Regular [...] and pain Psych/Mental Status: Normal Affect, Appropriate Weight / BMI Weight Weight: 184 lb 8.43 oz Body Mass Index (BMI) 27.2 ABG / Lab / Microbiology Data 04/06/25 15:00 04/06/25 15:00 Laboratory: Laboratory Results - last 24 hr 04/06/25 15:00: WBC 7.8, RBC 5.30, Hgb 15.4 H, Hct 44.9, MCV 84.7, MCH 29.1, MCHC 34.3, RDW Std Deviation 41.7, RDW Coeff of Eboni 13.5, Plt Count 234, MPV 8.9, Immature Gran % (Auto) 0.400, Neut % (Auto) 57.8, Lymph % (Auto) 20.6, Laporte% (Auto) 12.2 H, Eos % (Auto) 8.2 H, Baso % (Auto) 0.8, Absolute Neuts (auto) 4.5, Absolute Lymphs (auto) 1.60, Nucleated RBC % 0, Sodium 141, Potassium 3.9, Chloride 104, Carbon Dioxide 25.7, Anion Gap 11, BUN 8, Creatinine 0.68 L, EstimCreat Clear Calc 77.95, Est GFR (MDRD) Non-Af 94, BUN/Creatinine Ratio 11.7, Glucose 121 H, Calcium 9.4, Troponin T High Sens 8 04/06/25 18:44: Troponin T Hi Sens 2 Hr 7 04/06/25 20:26: Troponin T Hi Sens 4Hr 7 Microbiology: Microbiology 04/06/25 15:19 Mucosa - Nose SARS-CoV-2, Influenza & RSV (PCR) - Final Radiography Diagnostic Testing: Radiology Impression Chest X-Ray 04/06/25 15:50 IMPRESSION: No Acute Findings. Reading Location: [facility] D/C Instructions Discharge Diet: No restrictions Call your doctor if you observe: Fever of 101 or Higher, Shortness of breath, Dizziness, Fainting spells, Swelling in the ankles, Chest pain and Increased palpitations (irregular heartbeat) DC O2, CPAP, BIPAP Needs Home O2 Discharge instructions: No Meaningful Use Info Meaningful Use Meaningful Use Diagnoses (Choose all that apply): None applicable Ischemic Stroke Statin Dosing Therapy Reference: STATIN DOSE THERAPY REFERENCE: * Patients > 75 years receive moderate or high dose statin therapy. * Patients 75 years or YOUNGER should receive HIGH intensity statin dose unless contraindicated. You will be required to document reason for non-treatment if statin daily dose does not meet guidelines. HIGH DOSE STATIN THERAPY DAILY Atorvastatin > than or = to 40 mg Rosuvastatin > than or = to 20 mg Amlodipine + Atorvastatin > than or = to 2.5/40 mg Ezetimibe + Simvastatin 10/80 mg Simvastatin 80mg Discharge Plan Admission Admit Date/Time: 04/06/25 18:40 Attending Provider: Carlos Barajas Primary Care Provider: Geoff Perez Chi Instructions Additional Instructions / Restrictions: Use your albuterol rescue inhaler every 4 hours while awake for the next 2-3 days to allow time for the steroids to work. Recommend 3-4 puff of the albuteroleach time. Discharge Orders/Prescriptions Prescriptions: New prednisone 20 mg Tablet 40 mg PO BREAKFAST 7 Days Qty: 14 0RF Continued budesonide-formoterol [Symbicort] 1 INHALER inhaler 1 inhaler PO DAILY Patient Comments: multivit with min-folic acid [Multivitamin Gummies] 200 mcg Tablet,Chewable 1 tab PO DAILY albuterol sulfate 90 mcg/actuation HFA aerosol inhaler 2 puff inhalation Q4H levothyroxine 50 mcg tablet 50 mcg PO DAILY venlafaxine 37.5 mg tablet 37.5 mg PO DAILY oxybutynin chloride 5 mg tablet 5 mg PO BID Referrals / Follow Up: Geoff Perez Chi, MD [Primary Care Provider] - Within 1 Week Disposition Disposition (needs filled in before D/C Order can be placed): Home, Self Care Charges/Coding Visit Charges Inpatient E&M: 14765 Disch Hosp >30min 04/07/25 0914 <Electronically signed by Carlos Barajas MD> Cosigner Signature (if applicable): CC: Dr. Carlos Barajas MD; Dr. Geoff Perez MD~ Signed [facility] Work Phone: Evaluation noteNo assessment information available [facility] Work Phone: Evaluation note* Diagnosis Onset Date Resolution Status Positive colorectal cancer s creening using Cologuard test acute [facility] Work Phone: Evaluation note* Diagnosis Onset Date Resolution Status Admit Date Asthma exacerbation acute April 06, 2025 6:36pm Hypoxia acute April 06 6:36pm [facility] Work Phone: History and physical note Author Richmond Valdez [facility] April 21, 2023 9:18am Note Date/Time April 21, 2023 9:18 am [facility] Medical Records Department [address] [place] [address] History & Physical Exam 04/21/23917 MR#: [id number] Acct: [id number] Name: CHRIS LARSEN Rep #:[id number] : 1955 68 From: Richmond hernandez MD PCP: Dr. Geoff Perez MD Status:REG S DC Location: [place] [address] History and Physical Date of Admission: 04/21/23 [...] mg PO DAILY 08/07/15 [History Confirmed 03/09/23] [facility] Surgical History (Updated 03/09/23 @ 09:06 by [...] proceed with procedure. Richmond Valdez MD Pager: [facility] [address] [place] [address], [address] [place] [phone] Office: I have examined the patient and the H&P has been reviewed. There are no clinicalchanges since date of exam. 04/21/23917 <Electronically signed by Richmond Valdez MD> Cosigner Signature (if applicable): CC: Dr. Richmond Valdez MD; Dr. Geoff Perez MD~ Signed [facility] Work Phone: History and physical note Author Carlos Barajas [facility] Note Date/Time April 06, 2025 6:49 pm [facility] Medical Records Department [address] [place] [address] H&P Exam - Hospitalist 04/06/25 1843 MR#: [id number] Acct: [id number] Name: CHRIS LARSEN Rep #:[id number] : [id number] From: Carlos morris MD PCP: Dr. Geoff Perez MD Status:ADM I NO Location: MS3 [id number] HPI - General General Date of Admission: [...] cardiac etiology especially given the clinical findings. [facility] Medical History Wears glasses Cancer Post-menopausal Depression [...] % (Auto) 57.8, Lymph % (Auto) 20.6, [place]% (Auto) 12.2 H, Eos % (Auto) 8.2 [...] 15:50 IMPRESSION: No Acute Findings. Reading Location: [facility] Assessment & Plan Assessment/Plan (1) Hypoxia: (2) [...] DVT: Ambulation Charges/Coding Visit Charges Inpatient E&M: 87959 Init Hosp L2 04/06/25 1849 <Electronically signed by Carlos Barajas MD> Cosigner Signature (if applicable): CC: Dr. Carlos Barajas MD; Dr. Geoff Perez MD~ Signed [facility] Work Phone: Reason for referral (narrative)No reason for referral information availableWWooster [facility] Work Phone: Chief Complaint and Reason [...] pm Hypoxia April 06, 2025 6:36 pm Chief Complaint Admit Date SOB, ELEVATED D-DIMER January 07, 2025 7 :53am LAB AND XRAY March 18, 2025 12:22 pm ASTHMA EXACERBATION April 06, 2025 6:40 pm Shortness of breath April 06, 2025 6:43 pm ASTHMA EXACERBATION April 07, 2025 9:06 am Reason for Visit Admit Date Asthma exacerbation April 06, 2025 6:40 pm Hypoxia April 06, 2025 6:40 pm Chief Complaint Admit Date LAB AND XRAY March 18, 2025 12:22 pm ASTHMA EXACERBATION April 06, 2025 6:40 pm Shortness of breath April 06, 2025 6:43 pm ASTHMA EXACERBATION April 07, 2025 9:06 am sob June 06, 2025 10 :47am Reason for Visit Admit Date Hypoxia April 06, 2025 6:40 pm Asthma exacerbation April 06, 2025 6:40 pm Chief Complaint Admit Date sob June 06, 2025 10 :47am Advance Directives Advance Directive Response Recorded Date/ Time Living Will No March 25, 2016 5 :00pm Power of Belt Puncher No March 25, 2016 5:00pm Advance Directive Response Recorded Date/ Time Name of Medical Power of Belt Puncher SPOUSE April 17, 2023 1:23pm Living Will Yes April 17, 2023 1:23pm Power of Belt Puncher Yes April 17 1:23pm Advance Directive Response Recorded Date/ Time Living Will Yes April 17, 2023 1:23pm Power of Belt Puncher Yes April 17 1:23pm Advance Directive Response Recorded Date/ Time Living Will Yes April 17, 2023 12:23pm Power of Belt Puncher Yes April 17 12:23pm Advance Directive Response Recorded Date/ Time Do you have a Healthcare Power of Belt Puncher? No April 06, 2025 3:04pm Advance Directive Response Recorded Date/ Time Do you have a Healthcare Power of Belt Puncher? No April 06, 2025 7:14pm Advance Directive Response Recorded Date/ Time Do you have a Healthcare Power of Belt Puncher? No April 06, 2025 7:14pm Do you have a Healthcare Power of Belt Puncher? No June 06, 2025 10:48am Advance Directive Response Recorded Date/ Time Do you have a Healthcare Power of Belt Puncher? No June 06, 2025 10:48am Summary Purpose Family History No Family History [...] Other Provider Active Start: April 06, 2025 Team Status: Inactive Member Role Status Dates Dr. Geoff Perez MD Primary Care Provider Active Start: April 06, 2025 End: April 07, 2025 Dr. Shay Simpson DO Emergency Provider Active Start: April 06, 2025 End: April 07, 2025 Dr. Carlos Barajas MD Admit Provider Active Start: April 06, 2025 End: April 07, 2025 Dr. Carlos Barajas MD Attending Provider Active Start: April 06, 2025 End: April 07, 2025 Team Status: Active Member Role Status Dates Dr. Geoff Perez MD Primary Care Provider Active Start: April 07, 2025 Dr. Shay Simpson DO Emergency Provider Active Start: April 07, 2025 Dr. Carlos Barajas MD Admit Provider Active Start: April 07, 2025 Dr. Carlos Barajas MD Attending Provider Active Start: April 07, 2025 Dr. Carlos Barajas MD Other Provider Active Start: April 07, 2025 Team Status: Active Member Role/Relationship Status Dates Dr. Geoff Perez MD Primary Care Provider Active Team Status: Inactive Member Role/Relationship Status Dates Dr. Geoff Perez MD Primary Care Provider Active Start: February 21, 2025 End: February 21, 2025 Dr. Geoff Perez MD Attending Provider Active Start: February 21, 2025 End: February 21, 2025 Dr. Geoff Perez MD Referring Provider Active Start: February 21, 2025 End: February 21, 2025 Team Status: Inactive Member Role/Relationship Status Dates Dr. Geoff Perez MD Primary Care Provider Active Start: March 18, 2025 End: March 18, 2025 Dr. Geoff Perez MD Attending Provider Active Start: March 18, 2025 End: March 18, 2025 Dr. Geoff Perez MD Referring Provider Active Start: March 18, 2025 End: March 18, 2025 Team Status: Inactive Member Role/Relationship Status Dates Dr. Geoff Perez MD Primary Care Provider Active Start: April 06, 2025 End: April 07, 2025 Dr. Shay Simpson DO Emergency Provider Active Start: April 06, 2025 End: April 07, 2025 Dr. Carlos Barajas MD Admit Provider Active Start: April 06, 2025 End: April 07, 2025 Dr. Carlos Barajas MD Attending Provider Active Start: April 06, 2025 End: April 07, 2025 Team Status: Active Member Role/Relationship Status Dates Dr. Geoff Perez MD Primary Care Provider Active Start: April 06, 2025 Dr. Shay Simpson DO Emergency Provider Active Start: April 06, 2025 Dr. Carlos Barajas MD Admit Provider Active Start: April 06, 2025 Dr. Carlos Barajas MD Attending Provider Active Start: April 06, 2025 Dr. Carlos Barajas MD Other Provider Active Start: April 06, 2025 Team Status: Active Member Role/Relationship Status Dates Dr. Geoff Perez MD Primary Care Provider Active Start: April 07, 2025 Dr. Shay Simpson DO Emergency Provider Active Start: April 07, 2025 Dr. Carlos Barajas MD Admit Provider Active Start: April 07, 2025 Dr. Carlos Barajas MD Attending Provider Active Start: April 07, 2025 Dr. Carlos Barajas MD Other Provider Active Start: April 07, 2025 Team Status: Active Member Role/Relationship Status Dates Dr. Geoff Perez MD Primary Care Provider Active Start: June 03, 2025 Dr. Geoff Perez MD Attending Provider Active Start: June 03, 2025 Dr. Geoff Perez MD Referring Provider Active Start: June 03, 2025 Team Status: Inactive Member Role/Relationship Status Dates Dr. Geoff Perez MD Primary Care Provider Active Start: June 06, 2025 End: June 06, 2025 Dr. Anurag Corrales MD Emergency Provider Active Sta rt: June 06, 2025 End: June 06, 2025 Dr. Livan Velasquez MD Other Provider Active Start: June 06, 2025 End: June 06, 2025 Team Status: Inactive Member Role/Relationship Status Dates Dr. Geoff Perez MD Primary Care Provider Active Start: June 03, 2025 End: June 03, 2025 Dr. Geoff Perez MD Attending Provider Active Start: June 03, 2025 End: June 03, 2025 Dr. Geoff Perez MD Referring Provider Active Start: June 03, 2025 End: June 03, 2025 Team Status: Inactive Member Role/Relationship Status Dates Dr. Geoff Perez MD Primary Care Provider Active Start: March 18, 2025 End: March 18, 2025 Dr. Geoff Perez MD Attending Provider Active Start: March 18, 2025 End: March 18, 2025 Dr. Geoff Perez MD Referring Provider Active Start: March 18, 2025 End: March 18, 2025 Team Status: Inactive Member Role/Relationship Status Dates Dr. Geoff Perez MD Primary Care Provider Active Start: April 06, 2025 End: April 07, 2025 Dr. Shay Simpson DO Emergency Provider Active Start: April 06, 2025 End: April 07, 2025 Dr. Carlos Barajas MD Admit Provider Active Start: April 06, 2025 End: April 07, 2025 Dr. Carlos Barajas MD Attending Provider Active Start: April 06, 2025 End: April 07, 2025 Team Status: Active Member Role/Relationship Status Dates Dr. Geoff Perez MD Primary Care Provider Active Start: April 06, 2025 Dr. Shay Simpson DO Emergency Provider Active Start: April 06, 2025 Dr. Carlos Barajas MD Admit Provider Active Start: April 06, 2025 Dr. Carlos Barajas MD Attending Provider Active Start: April 06, 2025 Dr. Carlos Barajas MD Other Provider Active Start: April 06, 2025 Team Status: Active Member Role/Relationship Status Dates Dr. Geoff Perez MD Primary Care Provider Active Start: April 07, 2025 Dr. Shay Simposn DO Emergency Provider Active Start: April 07, 2025 Dr. Carlos Barajas MD Admit Provider Active Start: April 07, 2025 Dr. Carlos Barajas MD Attending Provider Active Start: April 07, 2025 Dr. Carlos Barajas MD Other Provider Active Start: April 07, 2025 Team Status: Inactive Member Role/Relationship Status Dates Dr. Geoff Perez MD Primary Care Provider Active Start: June 03, 2025 End: June 03, 2025 Dr. Geoff Perez MD Attending Provider Active Start: June 03, 2025 End: June 03, 2025 Dr. Geoff Perez MD Referring Provider Active Start: June 03, 2025 End: June 03, 2025 Team Status: Inactive Member Role/Relationship Status Dates Dr. Geoff Perez MD Primary Care Provider Active Start: June 06, 2025 End: June 06, 2025 Dr. Anurag Corrales MD Attending Provider Active Sta rt: June 06, 2025 End: June 06, 2025 Dr. Anurag Corrales MD Emergency Provider Active Sta rt: June 06, 2025 End: June 06, 2025 Dr. Livan Velasquez MD Other Provider Active Start: June 06, 2025 End: June 06, 2025 Team Status: Inactive Member Role/Relationship Status Dates Dr. Gefof Perez MD Primary Care Provider Active Start: June 27, 2025 End: June 27, 2025 Dr. Livan Velasquez MD Attending Provider Active Start: June 27, 2025 End: June 27, 2025 Dr. Livan Velasquez MD Referring Provider Active Start: June 27, 2025 End: June 27, 2025 Team Status: Active Member Role/Relationship Status Dates Dr. Geoff Perez MD Primary care physician Active Team Status: Inactive Member Role/Relationship Status Dates Dr. Geoff Perez MD Primary care physician Active Start: June 03, 2025 End: June 03, 2025 Dr. Geoff Perez MD Attending physician Active Start: June 03, 2025 End: June 03, 2025 Dr. Geoff Perez MD Referring Provider Active Start: June 03, 2025 End: June 03, 2025 Team Status: Inactive Member Role/Relationship Status Dates Dr. Geoff Perez MD Primary care physician Active Start: June 06, 2025 End: June 06, 2025 Dr. Anurag Corrales MD Attending physician Active St art: June 06, 2025 End: June 06, 2025 Dr. Anurag Corrales MD Emergency Department Physician Active Start: June 06, 2025 End: June 06, 2025 Dr. Livan Velasquez MD Nurse Practitioner Active Start: June 06, 2025 End: June 06, 2025 Team Status: Inactive Member Role/Relationship Status Dates Dr. Geoff Perez MD Primary care physician Active Start: June 27, 2025 End: June 27, 2025 Dr. Livan Velasquez MD Attending physician Active Start: June 27, 2025 End: June 27, 2025 Dr. Livan Velasquez MD Referring Provider Active Start: June 27, 2025 End: June 27, 2025 Team Status: Inactive Member Role/Relationship Status Dates Dr. Geoff Perez MD Primary care physician Active Start: July 28, 2025 End: July 28, 2025 Dr. Livan Velasquez MD Attending physician Active Start: July 28, 2025 End: July 28, 2025 Dr. Livan Velasquez MD Referring Provider Active Start: July 28, 2025 End: July 28, 2025 INFORMATION SOURCE (unrecogn ized section and content) DATE CREATED AUTHOR 08/10/2025 [facility] FOR RECORDS PERTAINING TO PATIENTS WHO [...] BE BASED ON THE PRIMARY CLINICAL RECORDS. Site Tour [facility]. provides no warranty or guarantee of the accuracy or completeness of information in this document.
== END | disposition home or self-care (01) ==
LOC: LAB 17:11
PROVIDERS: PCP Family Medicine Geriatric Medicine; Referring Provider Family Medicine Geriatric Medicine; Visit Provider Family Medicine Geriatric Medicine
DX: R06.2 Wheezing (principal)
CPT/HCPCS: 87631

== ENCOUNTER → 2025-10-21 | Outpatient (CLI) | payer MEDICARE, SELFPAY | END | disposition home or self-care (01) | LOC: POLAB3 16:59 | PROVIDERS: PCP Family Medicine Geriatric Medicine; Visit Provider Family Medicine Geriatric Medicine | DX: R06.2 Wheezing (principal) | CPT/HCPCS: 87631 ==